=== PATIENT | female | born 1950 | race Caucasian/White ===

== ENCOUNTER → 2019-11-18 | Outpatient (CLI) | payer MEDICARE ==
[~2019-11-18] MED LIST: AMLO5TAB9 PO; DULO60CA44 PO; FENT100PAT TD; FLUT16H NASAL; GABA600T10 PO; HYDR4TAB56 PO; IBUP-2077 PO; LEVO75TA10 PO; MAGN400T40 PO; METO100T14 PO; ONDA4TAB4 PO; RANI150T7 PO; VALS1TAB81 PO
== END | disposition home or self-care (01) ==
LOC: SHCH 10:17
PROVIDERS: ATTEND Internal Medicine Cardiovascular Disease
DX: I87.2 Venous insufficiency (chronic) (peripheral) (principal)
CPT/HCPCS: 93970

== ENCOUNTER → 2020-01-29 | Outpatient (CLI) | payer MEDICARE ==
[~2020-01-29] MED LIST changes: +LIDOCAINE HCL 2% JELLY 5 ML TP ONE
== END | disposition home or self-care (01) ==
LOC: WHH 10:45
PROVIDERS: ATTEND Family Medicine
DX: I87.331 Chronic venous hypertension (idiopathic) with ulcer and inflammation of right lower extremity (principal); L97.212 Non-pressure chronic ulcer of right calf with fat layer exposed; L97.812 Non-pressure chronic ulcer of other part of right lower leg with fat layer exposed; I12.9 Hypertensive chronic kidney disease with stage 1 through stage 4 chronic kidney disease, or unspecified chronic kidney disease; N18.9 Chronic kidney disease, unspecified; I25.10 Atherosclerotic heart disease of native coronary artery without angina pectoris; E03.9 Hypothyroidism, unspecified; I89.0 Lymphedema, not elsewhere classified; E66.9 Obesity, unspecified; M19.90 Unspecified osteoarthritis, unspecified site; F17.200 Nicotine dependence, unspecified, uncomplicated; Z96.642 Presence of left artificial hip joint
CPT/HCPCS: 11042; A6021; A6196; A6456

== ENCOUNTER → 2020-02-05 | Outpatient (CLI) | payer MEDICARE ==
[~2020-02-05] MED LIST changes: +AMLO-257 PO; -AMLO5TAB9 PO
== END | disposition home or self-care (01) ==
LOC: WHH 08:00
PROVIDERS: ATTEND Family Medicine
DX: I87.331 Chronic venous hypertension (idiopathic) with ulcer and inflammation of right lower extremity (principal); L97.212 Non-pressure chronic ulcer of right calf with fat layer exposed; L97.812 Non-pressure chronic ulcer of other part of right lower leg with fat layer exposed; I12.9 Hypertensive chronic kidney disease with stage 1 through stage 4 chronic kidney disease, or unspecified chronic kidney disease; N18.9 Chronic kidney disease, unspecified; I25.10 Atherosclerotic heart disease of native coronary artery without angina pectoris; E03.9 Hypothyroidism, unspecified; I89.0 Lymphedema, not elsewhere classified; E66.9 Obesity, unspecified; M19.90 Unspecified osteoarthritis, unspecified site; F17.290 Nicotine dependence, other tobacco product, uncomplicated; Z96.642 Presence of left artificial hip joint
CPT/HCPCS: 11042; A6021; A6197; A6456

== ENCOUNTER → 2020-02-12 | Outpatient (CLI) | payer MEDICARE | END | disposition home or self-care (01) | LOC: WHH 09:30 | PROVIDERS: ATTEND Family Medicine | DX: I87.331 Chronic venous hypertension (idiopathic) with ulcer and inflammation of right lower extremity (principal); L97.212 Non-pressure chronic ulcer of right calf with fat layer exposed; L97.812 Non-pressure chronic ulcer of other part of right lower leg with fat layer exposed; I12.9 Hypertensive chronic kidney disease with stage 1 through stage 4 chronic kidney disease, or unspecified chronic kidney disease; N18.9 Chronic kidney disease, unspecified; I25.10 Atherosclerotic heart disease of native coronary artery without angina pectoris; E03.9 Hypothyroidism, unspecified; I89.0 Lymphedema, not elsewhere classified; E66.9 Obesity, unspecified; M19.90 Unspecified osteoarthritis, unspecified site; F17.290 Nicotine dependence, other tobacco product, uncomplicated; Z96.642 Presence of left artificial hip joint | CPT/HCPCS: 11042; A6021; A6196; A6456 ==

== ENCOUNTER → 2020-02-19 | Outpatient (CLI) | payer MEDICARE | END | disposition home or self-care (01) | LOC: WHH 09:30 | PROVIDERS: ATTEND Family Medicine | DX: I87.331 Chronic venous hypertension (idiopathic) with ulcer and inflammation of right lower extremity (principal); L97.212 Non-pressure chronic ulcer of right calf with fat layer exposed; L97.812 Non-pressure chronic ulcer of other part of right lower leg with fat layer exposed; I12.9 Hypertensive chronic kidney disease with stage 1 through stage 4 chronic kidney disease, or unspecified chronic kidney disease; N18.9 Chronic kidney disease, unspecified; I25.10 Atherosclerotic heart disease of native coronary artery without angina pectoris; E03.9 Hypothyroidism, unspecified; I89.0 Lymphedema, not elsewhere classified; E66.9 Obesity, unspecified; M19.90 Unspecified osteoarthritis, unspecified site; F17.290 Nicotine dependence, other tobacco product, uncomplicated; Z96.642 Presence of left artificial hip joint | CPT/HCPCS: 11042; A6021; A6196; A6456 ==

== ENCOUNTER → 2020-02-26 | Outpatient (CLI) | payer MEDICARE | END | disposition home or self-care (01) | LOC: WHH 09:30 | PROVIDERS: ATTEND Family Medicine | DX: I87.331 Chronic venous hypertension (idiopathic) with ulcer and inflammation of right lower extremity (principal); L97.212 Non-pressure chronic ulcer of right calf with fat layer exposed; L97.812 Non-pressure chronic ulcer of other part of right lower leg with fat layer exposed; I12.9 Hypertensive chronic kidney disease with stage 1 through stage 4 chronic kidney disease, or unspecified chronic kidney disease; N18.9 Chronic kidney disease, unspecified; I25.10 Atherosclerotic heart disease of native coronary artery without angina pectoris; E03.9 Hypothyroidism, unspecified; I89.0 Lymphedema, not elsewhere classified; E66.9 Obesity, unspecified; M19.90 Unspecified osteoarthritis, unspecified site; F17.290 Nicotine dependence, other tobacco product, uncomplicated; Z96.642 Presence of left artificial hip joint | CPT/HCPCS: 11042; A6021; A6197; A6456 ==

== ENCOUNTER → 2020-03-11 | Outpatient (CLI) | payer MEDICARE | END | disposition home or self-care (01) | LOC: WHH 09:30 | PROVIDERS: ATTEND Family Medicine | DX: I87.331 Chronic venous hypertension (idiopathic) with ulcer and inflammation of right lower extremity (principal); L97.212 Non-pressure chronic ulcer of right calf with fat layer exposed; L97.812 Non-pressure chronic ulcer of other part of right lower leg with fat layer exposed; I12.9 Hypertensive chronic kidney disease with stage 1 through stage 4 chronic kidney disease, or unspecified chronic kidney disease; N18.9 Chronic kidney disease, unspecified; I25.10 Atherosclerotic heart disease of native coronary artery without angina pectoris; E03.9 Hypothyroidism, unspecified; I89.0 Lymphedema, not elsewhere classified; E66.9 Obesity, unspecified; M19.90 Unspecified osteoarthritis, unspecified site; F17.290 Nicotine dependence, other tobacco product, uncomplicated; Z96.642 Presence of left artificial hip joint | CPT/HCPCS: 11042; A6022; A6196; A6456; 29580 ==

== ENCOUNTER → 2020-04-01 | Outpatient (CLI) | payer MEDICARE | END | disposition home or self-care (01) | LOC: WHH 09:30 | PROVIDERS: ATTEND Family Medicine | DX: I87.331 Chronic venous hypertension (idiopathic) with ulcer and inflammation of right lower extremity (principal); L97.212 Non-pressure chronic ulcer of right calf with fat layer exposed; L97.812 Non-pressure chronic ulcer of other part of right lower leg with fat layer exposed; I12.9 Hypertensive chronic kidney disease with stage 1 through stage 4 chronic kidney disease, or unspecified chronic kidney disease; N18.9 Chronic kidney disease, unspecified; I25.10 Atherosclerotic heart disease of native coronary artery without angina pectoris; E03.9 Hypothyroidism, unspecified; I89.0 Lymphedema, not elsewhere classified; E66.9 Obesity, unspecified; M19.90 Unspecified osteoarthritis, unspecified site; F17.290 Nicotine dependence, other tobacco product, uncomplicated; Z96.642 Presence of left artificial hip joint | CPT/HCPCS: 11042; A6022; A6196; A6456 ==

== ENCOUNTER → 2020-04-05 | Outpatient (CLI) | payer MEDICARE | END | disposition home or self-care (01) | LOC: WHH 10:45 | PROVIDERS: ATTEND Family Medicine | DX: I87.331 Chronic venous hypertension (idiopathic) with ulcer and inflammation of right lower extremity (principal); L97.212 Non-pressure chronic ulcer of right calf with fat layer exposed; L97.812 Non-pressure chronic ulcer of other part of right lower leg with fat layer exposed; I12.9 Hypertensive chronic kidney disease with stage 1 through stage 4 chronic kidney disease, or unspecified chronic kidney disease; N18.9 Chronic kidney disease, unspecified; I25.10 Atherosclerotic heart disease of native coronary artery without angina pectoris; E03.9 Hypothyroidism, unspecified; I89.0 Lymphedema, not elsewhere classified; E66.9 Obesity, unspecified; M19.90 Unspecified osteoarthritis, unspecified site; F17.290 Nicotine dependence, other tobacco product, uncomplicated; Z96.642 Presence of left artificial hip joint | CPT/HCPCS: 15271; A6196; A6456; Q4133 ==

== ENCOUNTER → 2020-04-12 | Outpatient (CLI) | payer MEDICARE | END | disposition home or self-care (01) | LOC: WHH 10:30 | PROVIDERS: ATTEND Family Medicine | DX: T86.828 Other complications of skin graft (allograft) (autograft) (principal); L97.212 Non-pressure chronic ulcer of right calf with fat layer exposed; L97.812 Non-pressure chronic ulcer of other part of right lower leg with fat layer exposed; L84 Corns and callosities; I12.9 Hypertensive chronic kidney disease with stage 1 through stage 4 chronic kidney disease, or unspecified chronic kidney disease; N18.9 Chronic kidney disease, unspecified; I25.10 Atherosclerotic heart disease of native coronary artery without angina pectoris; E03.9 Hypothyroidism, unspecified; I89.0 Lymphedema, not elsewhere classified; E66.9 Obesity, unspecified; M19.90 Unspecified osteoarthritis, unspecified site; F17.290 Nicotine dependence, other tobacco product, uncomplicated; Z96.642 Presence of left artificial hip joint; Y83.2 Surgical operation with anastomosis, bypass or graft as the cause of abnormal reaction of the patient, or of later complication, without mention of misadventure at the time of the procedure | CPT/HCPCS: 15271; A6196; A6456; Q4133 ==

== ENCOUNTER → 2020-04-19 | Outpatient (CLI) | payer MEDICARE | END | disposition home or self-care (01) | LOC: WHH 10:55 | PROVIDERS: ATTEND Family Medicine | DX: L97.218 Non-pressure chronic ulcer of right calf with other specified severity (principal); L97.812 Non-pressure chronic ulcer of other part of right lower leg with fat layer exposed; L84 Corns and callosities; I12.9 Hypertensive chronic kidney disease with stage 1 through stage 4 chronic kidney disease, or unspecified chronic kidney disease; N18.9 Chronic kidney disease, unspecified; I25.10 Atherosclerotic heart disease of native coronary artery without angina pectoris; E03.9 Hypothyroidism, unspecified; I89.0 Lymphedema, not elsewhere classified; E66.9 Obesity, unspecified; M19.90 Unspecified osteoarthritis, unspecified site; F17.290 Nicotine dependence, other tobacco product, uncomplicated; Z96.642 Presence of left artificial hip joint | CPT/HCPCS: G0463 ==

== ENCOUNTER → 2020-07-12 | Outpatient (CLI) | payer MEDICARE ==
[~2020-07-12] MED LIST changes: -LIDOCAINE HCL 2% JELLY 5 ML TP ONE
== END | disposition home or self-care (01) ==
LOC: SHCH 14:38
PROVIDERS: ATTEND Internal Medicine Cardiovascular Disease
DX: I10 Essential (primary) hypertension (principal)
CPT/HCPCS: 93306; 93356

== ENCOUNTER → 2020-07-28 | Outpatient (CLI) | payer MEDICARE ==
[~2020-07-28] MED LIST changes: +LIDOCAINE HCL 2% JELLY 5 ML TP ONE
== END | disposition home or self-care (01) ==
LOC: WHH 09:55
PROVIDERS: ATTEND Family Medicine
DX: I87.311 Chronic venous hypertension (idiopathic) with ulcer of right lower extremity (principal); L97.212 Non-pressure chronic ulcer of right calf with fat layer exposed; L97.811 Non-pressure chronic ulcer of other part of right lower leg limited to breakdown of skin; I12.9 Hypertensive chronic kidney disease with stage 1 through stage 4 chronic kidney disease, or unspecified chronic kidney disease; N18.9 Chronic kidney disease, unspecified; E03.9 Hypothyroidism, unspecified; E66.9 Obesity, unspecified; M79.7 Fibromyalgia; M19.90 Unspecified osteoarthritis, unspecified site; I25.10 Atherosclerotic heart disease of native coronary artery without angina pectoris; B35.9 Dermatophytosis, unspecified; F17.210 Nicotine dependence, cigarettes, uncomplicated; Z68.26 Body mass index [BMI] 26.0-26.9, adult; Z96.642 Presence of left artificial hip joint
CPT/HCPCS: 11042; A6021; A6197; A6456; L3260

== ENCOUNTER → 2020-08-11 | Outpatient (CLI) | payer MEDICARE | END | disposition home or self-care (01) | LOC: WHH 11:00 | PROVIDERS: ATTEND Family Medicine | DX: I87.311 Chronic venous hypertension (idiopathic) with ulcer of right lower extremity (principal); L97.212 Non-pressure chronic ulcer of right calf with fat layer exposed; L97.811 Non-pressure chronic ulcer of other part of right lower leg limited to breakdown of skin; I12.9 Hypertensive chronic kidney disease with stage 1 through stage 4 chronic kidney disease, or unspecified chronic kidney disease; N18.9 Chronic kidney disease, unspecified; E03.9 Hypothyroidism, unspecified; E66.9 Obesity, unspecified; M79.7 Fibromyalgia; M19.90 Unspecified osteoarthritis, unspecified site; I25.10 Atherosclerotic heart disease of native coronary artery without angina pectoris; B35.9 Dermatophytosis, unspecified; F17.210 Nicotine dependence, cigarettes, uncomplicated; Z68.26 Body mass index [BMI] 26.0-26.9, adult; Z96.642 Presence of left artificial hip joint | CPT/HCPCS: 11042; A6021; A6197; A6456 ==

== ENCOUNTER → 2020-08-18 | Outpatient (CLI) | payer MEDICARE | END | disposition home or self-care (01) | LOC: WHH 10:55 | PROVIDERS: ATTEND Family Medicine | DX: I87.311 Chronic venous hypertension (idiopathic) with ulcer of right lower extremity (principal); L97.212 Non-pressure chronic ulcer of right calf with fat layer exposed; I12.9 Hypertensive chronic kidney disease with stage 1 through stage 4 chronic kidney disease, or unspecified chronic kidney disease; N18.9 Chronic kidney disease, unspecified; E03.9 Hypothyroidism, unspecified; E66.9 Obesity, unspecified; M79.7 Fibromyalgia; M19.90 Unspecified osteoarthritis, unspecified site; I25.10 Atherosclerotic heart disease of native coronary artery without angina pectoris; B35.9 Dermatophytosis, unspecified; F17.210 Nicotine dependence, cigarettes, uncomplicated; Z68.26 Body mass index [BMI] 26.0-26.9, adult; Z96.642 Presence of left artificial hip joint | CPT/HCPCS: 11042; A6021; A6197; A6456 ==

== ENCOUNTER → 2020-08-25 | Outpatient (CLI) | payer MEDICARE | END | disposition home or self-care (01) | LOC: WHH 11:10 | PROVIDERS: ATTEND Family Medicine | DX: I87.311 Chronic venous hypertension (idiopathic) with ulcer of right lower extremity (principal); L97.212 Non-pressure chronic ulcer of right calf with fat layer exposed; I12.9 Hypertensive chronic kidney disease with stage 1 through stage 4 chronic kidney disease, or unspecified chronic kidney disease; N18.9 Chronic kidney disease, unspecified; E03.9 Hypothyroidism, unspecified; E66.9 Obesity, unspecified; M79.7 Fibromyalgia; M19.90 Unspecified osteoarthritis, unspecified site; I25.10 Atherosclerotic heart disease of native coronary artery without angina pectoris; B59 Pneumocystosis; B35.9 Dermatophytosis, unspecified; F17.210 Nicotine dependence, cigarettes, uncomplicated; Z68.26 Body mass index [BMI] 26.0-26.9, adult; Z96.642 Presence of left artificial hip joint | CPT/HCPCS: 11042; A6021; A6197; A6456 ==

== ENCOUNTER → 2020-09-01 | Outpatient (CLI) | payer MEDICARE | END | disposition home or self-care (01) | LOC: WHH 11:01 | PROVIDERS: ATTEND Family Medicine | DX: I87.311 Chronic venous hypertension (idiopathic) with ulcer of right lower extremity (principal); L97.212 Non-pressure chronic ulcer of right calf with fat layer exposed; I12.9 Hypertensive chronic kidney disease with stage 1 through stage 4 chronic kidney disease, or unspecified chronic kidney disease; N18.9 Chronic kidney disease, unspecified; E03.9 Hypothyroidism, unspecified; E66.9 Obesity, unspecified; M79.7 Fibromyalgia; M19.90 Unspecified osteoarthritis, unspecified site; I25.10 Atherosclerotic heart disease of native coronary artery without angina pectoris; B59 Pneumocystosis; B35.9 Dermatophytosis, unspecified; F17.210 Nicotine dependence, cigarettes, uncomplicated; Z68.26 Body mass index [BMI] 26.0-26.9, adult; Z96.642 Presence of left artificial hip joint | CPT/HCPCS: 11042; A6021; A6197; A6456 ==

== ENCOUNTER → 2020-09-08 | Outpatient (CLI) | payer MEDICARE ==
[~2020-09-08] MED LIST changes: -LIDOCAINE HCL 2% JELLY 5 ML TP ONE; +LIDOCAINE HCL 4% LTA SOL 4 ML VIAL TP ONE
== END | disposition home or self-care (01) ==
LOC: WHH 11:17
PROVIDERS: ATTEND Family Medicine
DX: I87.311 Chronic venous hypertension (idiopathic) with ulcer of right lower extremity (principal); L97.212 Non-pressure chronic ulcer of right calf with fat layer exposed; I12.9 Hypertensive chronic kidney disease with stage 1 through stage 4 chronic kidney disease, or unspecified chronic kidney disease; N18.9 Chronic kidney disease, unspecified; E03.9 Hypothyroidism, unspecified; E66.9 Obesity, unspecified; M79.7 Fibromyalgia; M19.90 Unspecified osteoarthritis, unspecified site; I25.10 Atherosclerotic heart disease of native coronary artery without angina pectoris; B59 Pneumocystosis; B35.9 Dermatophytosis, unspecified; F17.210 Nicotine dependence, cigarettes, uncomplicated; Z68.26 Body mass index [BMI] 26.0-26.9, adult; Z96.642 Presence of left artificial hip joint
CPT/HCPCS: 11042; A4450; A6021; A6197; A6456

== ENCOUNTER → 2020-09-29 | Outpatient (CLI) | payer MEDICARE ==
[~2020-09-29] MED LIST changes: -LIDOCAINE HCL 4% LTA SOL 4 ML VIAL TP ONE
== END | disposition home or self-care (01) ==
LOC: WHH 10:55
PROVIDERS: ATTEND Family Medicine
DX: I87.311 Chronic venous hypertension (idiopathic) with ulcer of right lower extremity (principal); L97.212 Non-pressure chronic ulcer of right calf with fat layer exposed; I12.9 Hypertensive chronic kidney disease with stage 1 through stage 4 chronic kidney disease, or unspecified chronic kidney disease; N18.9 Chronic kidney disease, unspecified; E03.9 Hypothyroidism, unspecified; E66.9 Obesity, unspecified; M79.7 Fibromyalgia; M19.90 Unspecified osteoarthritis, unspecified site; I25.10 Atherosclerotic heart disease of native coronary artery without angina pectoris; B59 Pneumocystosis; B35.9 Dermatophytosis, unspecified; F17.210 Nicotine dependence, cigarettes, uncomplicated; Z68.26 Body mass index [BMI] 26.0-26.9, adult; Z96.642 Presence of left artificial hip joint
CPT/HCPCS: 29580; A6456; G0463

== ENCOUNTER 2021-08-04 12:58 | Emergency (ER) | payer MEDICARE ==
[~2021-08-04] VITALS: Ht 162.6 cm; Wt 65.8 kg
[~2021-08-04 12:58] MED LIST changes: -DULO60CA44 PO; +DULO60CA45 PO
[2021-08-04 13:54] LABS: BASOPHILS % (AUTO) 0.3 % (0.0-5.0); EOSINOPHILS % (AUTO) 0.6 % (0.0-8.0); HEMATOCRIT 39.8 % (36-48); LYMPHOCYTES % (AUTO) 8.1 % (21.0-51.0); MEAN CORPUSCULAR HEMOGLOBIN 28.1 pg (27.0-33.0); MEAN CORPUSCULAR HGB CONC 32.2 g/dL (32.0-36.0); MEAN CORPUSCULAR VOLUME 87.5 fL (79-99); MONOCYTES % (AUTO) 5.2 % (3.0-13.0); PLATELET COUNT (AUTO) 385 K/uL (130-400); RED BLOOD CELL COUNT(AUTO) 4.55 MIL/uL (4.00-5.50); RED CELL DISTRIBUTION WIDTH 14.5 % (11.0-15.5); WHITE BLOOD COUNT (AUTO) 28.5 K/uL (4.8-10.8)
[2021-08-04 14:02] LABS: CREATININE 1.1 mg/dL (0.5-1.5); POTASSIUM 3.5 mmol/L (3.5-5.1)
[2021-08-04 14:07] LABS: BILIRUBIN,TOTAL 0.5 mg/dL (0.2-1.0); CRP QUANTITATIVE 84.3 mg/L (0.00-9.0); TOTAL PROTEIN, SERUM 6.8 g/dL (6.0-8.3)
[2021-08-04 14:25] LABS: B-TYPE NATRIURETIC PEPTIDE 30 pg/mL (0-100)
[2021-08-04] MEDS: ZOSYN 3.375GM +NS 50ML IV SCH ×2 (14:30→22:33)
[2021-08-04] MEDS: CLINDAMYCIN IVPB 600MG/50ML 50 ML IV SCH ×3 (15:01→23:33)
[2021-08-04] MEDS ORDERED: IOHEXOL-350 75 ML VIAL IV ONE (15:23)
[2021-08-04] MEDS ORDERED: IOHEXOL-350 50ML VIAL IV ONE (15:23)
[2021-08-04] MEDS ORDERED: ONDANSETRON 4MG INJ IVP ONE ×2 (15:30→21:00)
[2021-08-04] MEDS ORDERED: MORPHINE 2 MG SYG IVP ONE (15:30)
[2021-08-04] MEDS ORDERED: 0.9%NACL 50ML 50 ML IV ONE ×2 (16:18→22:29)
[2021-08-04 16:31] LABS: APPEARANCE,URINE Clear (CLEAR); BILIRUBIN,URINE Negative (NEGATIVE); COLOR,URINE Yellow (YELLOW); GLUCOSE, URINE (UA) Negative (NEGATIVE); KETONES,URINE Negative (NEGATIVE); LEUKOCYTE ESTERASE ,URINE Negative (NEGATIVE); NITRATE,URINE Negative (NEGATIVE); OCCULT BLOOD,URINE Negative (NEGATIVE); PROTEIN,URINE Negative (NEGATIVE); UROBILINOGEN,URINE 0.2 mg/dL (0.2-1.0)
[2021-08-04] MEDS ORDERED: HYDR1VIA2 PO (18:13)
[2021-08-04] MEDS ORDERED: TIZA-194 PO (18:14)
[2021-08-04] MEDS ORDERED: LEVO25CA4 PO (18:15)
[2021-08-04] MEDS ORDERED: FURO20TA4 PO (18:17)
[2021-08-04] MEDS ORDERED: METO100T14 PO (18:17)
[2021-08-04] MEDS ORDERED: SERT200C PO (18:18)
[2021-08-04] MEDS ORDERED: AMLO-257 PO (18:19)
[2021-08-04] MEDS ORDERED: GABA600T10 PO (18:20)
[2021-08-04] MEDS ORDERED: ARIP5TAB56 PO (18:20)
[2021-08-04] MEDS ORDERED: BENZ-70 PO (18:21)
[2021-08-04] MEDS ORDERED: VALS320T16 PO (18:22)
[2021-08-04 23:15] VITALS: BP 86/59
[2021-08-04] MEDS ORDERED: FAMOTIDINE 20MG VIAL IV ONE (23:30)
[2021-08-04] MEDS ORDERED: LIDOCAINE HCL 2% VISCOUS 15 ML UDCUP PO ONE (23:30)
[2021-08-04] MEDS ORDERED: DICYCLOMINE HCL 10 MG/5 ML ML PO ONE (23:30)
[2021-08-04] MEDS ORDERED: MAG/ALUM/SIMETH 30 ML UDCUP PO ONE (23:30)
== END 2021-08-04 23:47 | disposition short-term general hospital (02) ==
LOC: EDH 12:58
DX: L02.416 Cutaneous abscess of left lower limb (principal); L03.116 Cellulitis of left lower limb; T84.021A Dislocation of internal left hip prosthesis, initial encounter; Z20.822 Contact with and (suspected) exposure to COVID-19; F32.A Depression, unspecified; F17.200 Nicotine dependence, unspecified, uncomplicated; M79.7 Fibromyalgia; I10 Essential (primary) hypertension; E03.9 Hypothyroidism, unspecified; G89.29 Other chronic pain; Z88.0 Allergy status to penicillin; Z88.8 Allergy status to other drugs, medicaments and biological substances; Z88.1 Allergy status to other antibiotic agents; Z79.899 Other long term (current) drug therapy; Z98.890 Other specified postprocedural states; Z90.49 Acquired absence of other specified parts of digestive tract
CPT/HCPCS: 36415; 51702; 71045; 73502; 75635; 80053; 81003; 83605; 83880; 84484; 85025; 85651; 86140; 87040 ×2; 87635; 93926; 93971; 96365; 96366; 96368; 96375; 96376; 99285; C9803; J2405 ×2; J2543 ×2; J3490 ×3; Q9967 ×2

== ENCOUNTER 2021-08-30 01:33 | Observation (INO) | payer MEDICARE ==
[~2021-08-30] VITALS: Ht 162.6 cm; Wt 79.1 kg
[~2021-08-30 01:33] MED LIST changes: +ARIP5TAB56 PO; +BENZ-70 PO; +FURO20TA4 PO; +HYDR1VIA2 PO; +LEVO25CA4 PO; +SERT200C PO; +TIZA-194 PO; +VALS320T16 PO
[2021-08-30 03:18] LABS: BASOPHILS % (AUTO) 0.8 % (0.0-5.0); HEMATOCRIT 30.5 % (36-48); LYMPHOCYTES % (AUTO) 17.9 % (21.0-51.0); MEAN CORPUSCULAR HEMOGLOBIN 27.8 pg (27.0-33.0); MEAN CORPUSCULAR HGB CONC 30.8 g/dL (32.0-36.0); MEAN CORPUSCULAR VOLUME 90.2 fL (79-99); MONOCYTES % (AUTO) 10.8 % (3.0-13.0); NEUTROPHILS % (AUTO) 66.9 % (40.0-77.0); PLATELET COUNT (AUTO) 397 K/uL (130-400); RED BLOOD CELL COUNT(AUTO) 3.38 MIL/uL (4.00-5.50); RED CELL DISTRIBUTION WIDTH 14.6 % (11.0-15.5); WHITE BLOOD COUNT (AUTO) 10.2 K/uL (4.8-10.8)
[2021-08-30 03:36] LABS: B-TYPE NATRIURETIC PEPTIDE 381 pg/mL (0-100)
[2021-08-30 04:16] LABS: APPEARANCE,URINE Clear (CLEAR); BILIRUBIN,URINE Negative (NEGATIVE); COLOR,URINE Yellow (YELLOW); GLUCOSE, URINE (UA) Negative (NEGATIVE); KETONES,URINE Negative (NEGATIVE); LEUKOCYTE ESTERASE ,URINE Negative (NEGATIVE); NITRATE,URINE Negative (NEGATIVE); OCCULT BLOOD,URINE Small (NEGATIVE); PH,URINE 6.5 (5.0-8.0); PROTEIN,URINE POS 1+ mg/dL (NEGATIVE); UROBILINOGEN,URINE 0.2 mg/dL (0.2-1.0)
[2021-08-30 04:27] LABS: BACTERIA,URINE Few /HPF (None Seen); RBC,URINE 0-1 /HPF (0-1)
[2021-08-30 04:28] LABS: MUCUS,URINE Rare LPF (None Seen)
[2021-08-30 04:40] LABS: ALBUMIN 2.4 g/dL (3.5-5.0); BILIRUBIN,TOTAL 0.3 mg/dL (0.2-1.0); CREATININE 1.1 mg/dL (0.5-1.5); POTASSIUM 4.3 mmol/L (3.5-5.1); TOTAL PROTEIN, SERUM 6.3 g/dL (6.0-8.3)
[2021-08-30] MEDS ORDERED: GUAIFENESIN-DM 200/20 MG 10 ML PO PRN (06:00)
[2021-08-30] MEDS ORDERED: NITROGLYCERIN 0.4 MG SL TAB SL PRN (06:00)
[2021-08-30] MEDS ORDERED: LACTULOSE 20 GM/30 ML UDCUP PO PRN (06:00)
[2021-08-30] MEDS ORDERED: ACETAMINOPHEN 325 MG TAB PO PRN (06:00)
[2021-08-30] MEDS ORDERED: MAG/ALUM/SIMETH 30 ML UDCUP PO PRN (06:00)
[2021-08-30] MEDS ORDERED: ONDANSETRON 4MG INJ IV PRN (06:00)
[2021-08-30] MEDS ORDERED: DIPHENHYDRAMINE HCL 25 MG CAPSULE PO PRN (06:00)
[2021-08-30] MEDS ORDERED: ALBUTEROL INHALER PUFF (06:17)
[2021-08-30] MEDS ORDERED: BUPR-74 PO (06:19)
[2021-08-30] MEDS ORDERED: CEFEPIME (06:20)
[2021-08-30] MEDS ORDERED: DAPT500V17 IV (06:21)
[2021-08-30] MEDS ORDERED: DOXY-336 PO (06:22)
[2021-08-30] MEDS ORDERED: DSS PO (06:23)
[2021-08-30] MEDS ORDERED: LEVO750T46 PO (06:29)
[2021-08-30] MEDS ORDERED: MULT-1192 PO (06:33)
[2021-08-30] MEDS ORDERED: NALO4SPR3 NS (06:38)
[2021-08-30] MEDS ORDERED: SENN8.6T32 PO (06:40)
[2021-08-30] MEDS ORDERED: THYR120T2 PO (06:42)
[2021-08-30] MEDS ORDERED: TIZA-194 PO (06:43)
[2021-08-30] MEDS: ENOXAPARIN SODIUM 40 MG/0.4 ML SYRINGE SQ SCH (09:34)
[2021-08-30] MEDS: FAMOTIDINE 20MG VIAL IV SCH ×2 (09:34→21:22)
[2021-08-30 12:00] VITALS: BP 131/78
[2021-08-30 16:00] VITALS: BP 137/69
[2021-08-30 19:00] VITALS: BP 132/80
[2021-08-30] MEDS ORDERED: NALOXONE HCL 4 MG NASAL PRN (19:00)
[2021-08-30] MEDS ORDERED: ONDANSETRON ODT 4MG TAB PO PRN (19:00)
[2021-08-30] MEDS ORDERED: CEFE1FRO IV (19:06)
[2021-08-30] MEDS ORDERED: SERT-439 PO (19:17)
[2021-08-30] MEDS ORDERED: ONDA4TAB10 PO (19:17)
[2021-08-30] MEDS ORDERED: HYDR4TAB4 PO (19:17)
[2021-08-30] MEDS ORDERED: FENT-77 TD (19:17)
[2021-08-30] MEDS ORDERED: TIZANIDINE HCL 2 MG TABLET PO SCH ×2 (21:00→21:30)
[2021-08-30] MEDS ORDERED: FENTANYL 75 MCG/HR PATCH TD SCH (21:00)
[2021-08-30] MEDS ORDERED: ARIPIPRAZOLE 5 MG TABLET PO SCH (21:00)
[2021-08-30] MEDS ORDERED: ATORVASTATIN 20 MG TABLET PO SCH (21:00)
[2021-08-30] MEDS: GABAPENTIN 300 MG CAPSULE PO SCH (21:21)
[2021-08-30] MEDS: FUROSEMIDE 40MG VIAL IV SCH (21:22)
[2021-08-30] MEDS: METOPROLOL TARTRATE 50 MG TAB PO SCH (21:22)
[2021-08-30] MEDS: HYDROMORPHONE HCL 2 MG TAB PO PRN (21:28)
[2021-08-30] MEDS ORDERED: TIZANIDINE HCL 2 MG TABLET ONE ×3 (21:37→21:38)
[2021-08-31] VITALS: BP 98/56
[2021-08-31 04:00] VITALS: BP 92/56
[2021-08-31] MEDS: FUROSEMIDE 40MG VIAL IV SCH (04:00)
[2021-08-31 05:49] LABS: HEMATOCRIT 27.4 % (36-48); MEAN CORPUSCULAR HEMOGLOBIN 27.8 pg (27.0-33.0); MEAN CORPUSCULAR HGB CONC 31.4 g/dL (32.0-36.0); MEAN CORPUSCULAR VOLUME 88.7 fL (79-99); RED BLOOD CELL COUNT(AUTO) 3.09 MIL/uL (4.00-5.50); RED CELL DISTRIBUTION WIDTH 14.7 % (11.0-15.5); RETICULOCYTE % (AUTO) 1.25 % (0.42-2.23); WHITE BLOOD COUNT (AUTO) 6.6 K/uL (4.8-10.8)
[2021-08-31] MEDS ORDERED: THYROID PORK 120 MG PO SCH (06:30)
[2021-08-31 06:36] LABS: CREATININE 1.3 mg/dL (0.5-1.5); MAGNESIUM 1.4 mg/dL (1.80-2.40); PHOSPHORUS 2.8 mg/dL (2.5-4.9); POTASSIUM 4.9 mmol/L (3.5-5.1)
[2021-08-31 06:56] VITALS: BP 93/55
[2021-08-31] MEDS ORDERED: CEFEPIME IVP SCH ×2 (09:00→19:00)
[2021-08-31] MEDS ORDERED: AMLODIPINE 5 MG TAB PO SCH (09:00)
[2021-08-31] MEDS: METOPROLOL TARTRATE 50 MG TAB PO SCH (09:00)
[2021-08-31] MEDS ORDERED: NS IVP SCH ×4 (09:00→19:00)
[2021-08-31] MEDS ORDERED: DAPTOMYCIN IVP SCH ×2 (09:00→18:00)
[2021-08-31] MEDS ORDERED: MULTIVITAMIN TABLET PO SCH (09:00)
[2021-08-31] MEDS ORDERED: ASPIRIN 81 MG EC TAB PO SCH (09:00)
[2021-08-31] MEDS ORDERED: SERTRALINE HCL 50 MG TABLET PO SCH (09:00)
[2021-08-31] MEDS ORDERED: MAGNESIUM 2GM PREMIX 50ML 50 ML IV SCH (09:30)
[2021-08-31] MEDS: FAMOTIDINE 20MG VIAL IV SCH (09:54)
[2021-08-31] MEDS: ENOXAPARIN SODIUM 40 MG/0.4 ML SYRINGE SQ SCH (09:56)
[2021-08-31] MEDS: GABAPENTIN 300 MG CAPSULE PO SCH ×2 (09:56→17:01)
[2021-08-31] MEDS: HYDROMORPHONE HCL 2 MG TAB PO PRN ×2 (10:16→18:28)
[2021-08-31] MEDS ORDERED: FURO20TA6 PO (12:26)
[2021-08-31 16:00] VITALS: BP 143/77
== END 2021-08-31 20:28 | disposition home or self-care (01) ==
LOC: EDH 01:33 → EDHIP 05:53 → INTOOBSV 05:53 → 3BH 11:33
PROVIDERS: ADMIT Internal Medicine; ATTEND Internal Medicine
DX: I87.2 Venous insufficiency (chronic) (peripheral) (principal); R60.0 Localized edema; I21.4 Non-ST elevation (NSTEMI) myocardial infarction; D64.9 Anemia, unspecified; E03.9 Hypothyroidism, unspecified; R53.81 Other malaise; I10 Essential (primary) hypertension; R32 Unspecified urinary incontinence; L02.416 Cutaneous abscess of left lower limb; M06.9 Rheumatoid arthritis, unspecified; M79.7 Fibromyalgia; Z87.891 Personal history of nicotine dependence; Z91.81 History of falling; Z99.3 Dependence on wheelchair; Z96.643 Presence of artificial hip joint, bilateral; Z90.49 Acquired absence of other specified parts of digestive tract; Z79.899 Other long term (current) drug therapy; Z98.890 Other specified postprocedural states; W01.0XXA Fall on same level from slipping, tripping and stumbling without subsequent striking against object, initial encounter; Y92.89 Other specified places as the place of occurrence of the external cause; Y93.89 Activity, other specified; Y99.8 Other external cause status
CPT/HCPCS: 36415 ×2; 71045; 73522; 78580; 80048; 80053; 81001; 82306; 82550; 82607; 82728; 82746; 83540; 83550; 83605; 83735; 83880 ×2; 84100; 84145 ×2; 84484 ×4; 85025; 85027; 85045; 93005 ×2; 93306; 93970; 96365; 96366; 96372 ×2; 96375; 96376 ×2; 99285; A9540; G0378 ×11; J1650 ×2; J1940; J3475; J3490 ×3

== ENCOUNTER → 2021-11-23 | Outpatient (CLI) | payer MEDICARE ==
[~2021-11-23] MED LIST changes: -BENZ-70 PO; +CEFE1FRO IV; +DAPT500V17 IV; -DULO60CA45 PO; +FENT-77 TD; -FENT100PAT TD; -FLUT16H NASAL; -FURO20TA4 PO; +FURO20TA6 PO; -HYDR1VIA2 PO; +HYDR4TAB4 PO; -HYDR4TAB56 PO; -IBUP-2077 PO; -LEVO25CA4 PO; -LEVO75TA10 PO; -MAGN400T40 PO; +MULT-1192 PO; +NALO4SPR3 NS; +ONDA4TAB10 PO; -ONDA4TAB4 PO; -RANI150T7 PO; +SERT-439 PO; -SERT200C PO; +THYR120T2 PO; -VALS1TAB81 PO; -VALS320T16 PO
== END | disposition home or self-care (01) ==
LOC: WHH 10:00
PROVIDERS: ATTEND Family Medicine
DX: I89.0 Lymphedema, not elsewhere classified (principal); I87.2 Venous insufficiency (chronic) (peripheral); I12.9 Hypertensive chronic kidney disease with stage 1 through stage 4 chronic kidney disease, or unspecified chronic kidney disease; N18.9 Chronic kidney disease, unspecified; M19.90 Unspecified osteoarthritis, unspecified site; I25.10 Atherosclerotic heart disease of native coronary artery without angina pectoris; M79.7 Fibromyalgia; E03.9 Hypothyroidism, unspecified; F17.290 Nicotine dependence, other tobacco product, uncomplicated; Z96.642 Presence of left artificial hip joint; Z79.899 Other long term (current) drug therapy
CPT/HCPCS: G0463

== ENCOUNTER → 2021-12-28 | Outpatient (CLI) | payer MEDICARE | END | disposition home or self-care (01) | LOC: LAB 11:50 | PROVIDERS: ATTEND Physician Assistant | DX: E78.5 Hyperlipidemia, unspecified (principal) | CPT/HCPCS: 36415; 84132 ==

== ENCOUNTER 2022-10-31 07:53 | Emergency (ER) | payer MEDICARE ==
[~2022-10-31] VITALS: Ht 165.1 cm; Wt 65.8 kg
[2022-10-31 09:33] LABS: BASOPHILS % (AUTO) 0.3 % (0.0-5.0); EOSINOPHILS % (AUTO) 0.6 % (0.0-8.0); LYMPHOCYTES % (AUTO) 8.4 % (21.0-51.0); MEAN CORPUSCULAR HEMOGLOBIN 27.3 pg (27.0-33.0); MEAN CORPUSCULAR HGB CONC 31.3 g/dL (32.0-36.0); MEAN CORPUSCULAR VOLUME 87.2 fL (79-99); MONOCYTES % (AUTO) 7.6 % (3.0-13.0); NEUTROPHILS % (AUTO) 82.6 % (40.0-77.0); PLATELET COUNT (AUTO) 290 K/uL (130-400); RED BLOOD CELL COUNT(AUTO) 4.36 MIL/uL (4.00-5.50); RED CELL DISTRIBUTION WIDTH 13.4 % (11.0-15.5); WHITE BLOOD COUNT (AUTO) 12.6 K/uL (4.8-10.8)
[2022-10-31 09:46] LABS: ALBUMIN 3.2 g/dL (3.5-5.0); CREATININE 1.4 mg/dL (0.5-1.5); MAGNESIUM 1.8 mg/dL (1.80-2.40); POTASSIUM 3.8 mmol/L (3.5-5.1); TOTAL PROTEIN, SERUM 7.2 g/dL (6.0-8.3)
[2022-10-31 10:28] LABS: APPEARANCE,URINE CLEAR (CLEAR); BILIRUBIN,URINE NEGATIVE (NEGATIVE); COLOR,URINE COLORLESS (YELLOW); GLUCOSE, URINE (UA) NEGATIVE (NEGATIVE); KETONES,URINE NEGATIVE (NEGATIVE); LEUKOCYTE ESTERASE ,URINE NEGATIVE Leu/uL (NEGATIVE); NITRATE,URINE NEGATIVE (NEGATIVE); OCCULT BLOOD,URINE NEGATIVE (NEGATIVE); PROTEIN,URINE NEGATIVE (NEGATIVE); UROBILINOGEN,URINE 0.2 mg/dL (0.2-1.0)
[2022-10-31 10:31] LABS: AMPHET/METH SCREEN,URINE NEGATIVE (NEGATIVE); BARBITURATE SCREEN, URINE NEGATIVE (NEGATIVE); BENZODIAZEPINES SCREEN,URINE NEGATIVE (NEGATIVE); CANNABINOID SCREEN,URINE NEGATIVE (NEGATIVE); COCAINE SCREEN,URINE NEGATIVE (NEGATIVE); OPIATE SCREEN,URINE NEGATIVE (NEGATIVE); PHENCYCLIDINE SCREEN,URINE NEGATIVE (NEGATIVE)
[2022-10-31 12:38] VITALS: BP 153/76
== END 2022-10-31 12:37 | disposition home or self-care (01) ==
LOC: EDH 07:53
DX: R25.1 Tremor, unspecified (principal); I10 Essential (primary) hypertension; M79.7 Fibromyalgia; F17.200 Nicotine dependence, unspecified, uncomplicated; Z79.890 Hormone replacement therapy; Z79.899 Other long term (current) drug therapy; Z88.0 Allergy status to penicillin; Z88.1 Allergy status to other antibiotic agents
CPT/HCPCS: 36415; 70450; 72125; 72131; 80053; 80305; 81003; 83735; 85025

== ENCOUNTER → 2022-11-07 | Outpatient (CLI) | payer MEDICARE | END | disposition home or self-care (01) | LOC: SHCH 12:55 | PROVIDERS: ATTEND Internal Medicine Cardiovascular Disease | DX: I87.2 Venous insufficiency (chronic) (peripheral) (principal); R59.0 Localized enlarged lymph nodes | CPT/HCPCS: 93970 ==

== ENCOUNTER 2023-08-01 13:56 | Emergency (ER) | payer MEDICARE ==
[~2023-08-01] VITALS: Ht 162.6 cm; Wt 81.6 kg
[~2023-08-01 13:56] MED LIST changes: -ARIP5TAB56 PO; -CEFE1FRO IV; -DAPT500V17 IV; -FENT-77 TD; +FENT1PAT63 TD; -FURO20TA6 PO; +HYDR4 PO; -HYDR4TAB4 PO; -MULT-1192 PO; -NALO4SPR3 NS; -ONDA4TAB10 PO; -SERT-439 PO; -THYR120T2 PO; +THYROID PO; +VALS1TAB81 PO
[2023-08-01] MEDS: HYDROMORPHONE 2 MG VIAL (2MG/ML) IM ONE (16:39)
[2023-08-01] MEDS: ONDANSETRON ODT 4MG TAB SL ONE (16:39)
[2023-08-01 18:55] VITALS: BP 123/78; PULSE 78; RESP 18; O2SAT 98
[2023-08-01] MEDS: HYDROMORPHONE 1 MG INJ IM ONE (19:03)
== END 2023-08-01 18:46 | disposition home or self-care (01) ==
LOC: EDH 13:56
DX: G89.29 Other chronic pain (principal); M25.552 Pain in left hip; I10 Essential (primary) hypertension; M79.7 Fibromyalgia; F17.200 Nicotine dependence, unspecified, uncomplicated; Z79.899 Other long term (current) drug therapy; Z98.890 Other specified postprocedural states; Z88.0 Allergy status to penicillin; Z88.1 Allergy status to other antibiotic agents; Z88.8 Allergy status to other drugs, medicaments and biological substances
CPT/HCPCS: 99284; 72170; 96372 ×2; J1170 ×2

== ENCOUNTER 2023-10-04 15:43 | Inpatient (IN) | payer MEDICARE ==
[~2023-10-04] VITALS: Ht 162.6 cm; Wt 79.8 kg
[2023-10-04] MEDS: ONDANSETRON 4MG INJ IVP ONE (16:29)
[2023-10-04] MEDS: SOLU-MEDROL 125MG VIAL IVP ONE (16:29)
[2023-10-04] MEDS: MORPHINE 4 MG SYG IVP ONE (16:29)
[2023-10-04 18:26] LABS: BASOPHILS # (AUTO) 0.03 K/uL (0.00-0.20); BASOPHILS % (AUTO) 0.2 % (0.0-5.0); IMMATURE GRANULOCYTE ABSOLUTE 0.06 K/uL (0-1); LYMPHOCYTES # (AUTO) 0.4 K/uL (1.0-4.8); LYMPHOCYTES % (AUTO) 3.4 % (21.0-51.0); MEAN CORPUSCULAR HEMOGLOBIN 28.1 pg (27.0-33.0); MEAN CORPUSCULAR HGB CONC 30.7 g/dL (32.0-36.0); MEAN CORPUSCULAR VOLUME 91.6 fL (79-99); MONOCYTES # (AUTO) 0.4 K/uL (0.1-1.0); MONOCYTES % (AUTO) 3.2 % (3.0-13.0); NEUTROPHILS # (AUTO) 11.7 K/uL (1.8-7.7); NEUTROPHILS % (AUTO) 92.7 % (40.0-77.0); PLATELET COUNT (AUTO) 410 K/uL (130-400); RED BLOOD CELL COUNT(AUTO) 1.67 MIL/uL (4.00-5.50); RED CELL DISTRIBUTION WIDTH 16.7 % (11.0-15.5); WHITE BLOOD COUNT (AUTO) 12.6 K/uL (4.8-10.8)
[2023-10-04 18:34] LABS: HEMATOCRIT 15.3 % (36-48)
[2023-10-04 18:35] LABS: CREATININE 1.1 mg/dL (0.5-1.0); POTASSIUM 4.1 mmol/L (3.5-5.1)
[2023-10-04 18:40] LABS: ALBUMIN 2.7 g/dL (3.5-5.0); BILIRUBIN,TOTAL 1.3 mg/dL (0.2-1.0)
[2023-10-04] MEDS ORDERED: ACETAMINOPHEN 325 MG TAB PO PRN (19:00)
[2023-10-04] MEDS: PANTOPRAZOLE 40 MG/VIAL IVP ONE (19:29)
[2023-10-04] MEDS: HYDROMORPHONE 1 MG INJ IV PRN (19:30)
[2023-10-04 19:44] LABS: RETICULOCYTE % (AUTO) 4.57 % (0.42-2.23)
[2023-10-04 19:49] LABS: INR 1.02 (0.85-1.15)
[2023-10-04 19:51] LABS: PARTIAL THROMBOPLASTIN TIME 27.4 SEC (26.3-35.5)
[2023-10-04 19:53] LABS: % IRON SATURATION 11.4 % (22-44)
[2023-10-04 20:11] LABS: BAND NEUTROPHILS % (MANUAL) 2 % (0-2); LYMPHOCYTES % (MANUAL) 4 % (22-44); MAN.DIFF COMMENT-IMPRESSION MANUAL DIFFERENTIAL; MONOCYTES % (MANUAL) 2 % (2-9); PLATELET MORPHOLOGY COMMENT ADEQUATE; SEGMENTED NEUTROPHILS % 92 % (40-70); TOTAL CELLS COUNTED 100; WBC MORPHOLOGY CONSISTENT W/DIFF
[2023-10-04] MEDS: ACETAMINOPHEN 325 MG TAB PO PRN (21:36)
[2023-10-04] MEDS: ONDANSETRON 4MG INJ IV PRN (21:51)
[2023-10-04] MEDS: MORPHINE 2 MG SYG IV PRN (21:52)
[2023-10-04 22:35] VITALS: BP 152/60; PULSE 92; RESP 20
[2023-10-05 04:00] VITALS: BP 157/72; PULSE 79; RESP 18
[2023-10-05 04:46] LABS: BASOPHILS # (AUTO) 0.01 K/uL (0.00-0.20); BASOPHILS % (AUTO) 0.1 % (0.0-5.0); HEMATOCRIT 22.5 % (36-48); IMMATURE GRANULOCYTE ABSOLUTE 0.08 K/uL (0-1); LYMPHOCYTES # (AUTO) 0.7 K/uL (1.0-4.8); LYMPHOCYTES % (AUTO) 8.1 % (21.0-51.0); MEAN CORPUSCULAR HGB CONC 32.4 g/dL (32.0-36.0); MEAN CORPUSCULAR VOLUME 89.3 fL (79-99); MONOCYTES # (AUTO) 0.2 K/uL (0.1-1.0); MONOCYTES % (AUTO) 2.9 % (3.0-13.0); NEUTROPHILS # (AUTO) 7.2 K/uL (1.8-7.7); NEUTROPHILS % (AUTO) 87.9 % (40.0-77.0); PLATELET COUNT (AUTO) 353 K/uL (130-400); RED BLOOD CELL COUNT(AUTO) 2.52 MIL/uL (4.00-5.50); RED CELL DISTRIBUTION WIDTH 14.7 % (11.0-15.5); WHITE BLOOD COUNT (AUTO) 8.1 K/uL (4.8-10.8)
[2023-10-05 05:04] LABS: CREATININE 1.1 mg/dL (0.5-1.0); MAGNESIUM 1.8 mg/dL (1.80-2.40); PHOSPHORUS 3.7 mg/dL (2.5-4.9); POTASSIUM 3.8 mmol/L (3.5-5.1); THYROID STIMULATING HORMONE 0.34 uIU/mL (0.36-3.74)
[2023-10-05] MEDS: ENOXAPARIN SODIUM 40 MG/0.4 ML SYRINGE SQ SCH (07:57)
[2023-10-05] MEDS: FAMOTIDINE 20MG TAB PO SCH (07:57)
[2023-10-05 08:00] VITALS: BP 156/78; PULSE 89; RESP 18; O2SAT 100
[2023-10-05] MEDS: HYDROMORPHONE HCL 2 MG TAB PO ONE (09:15)
[2023-10-05 12:00] VITALS: BP 164/77; PULSE 80; RESP 18
[2023-10-05 13:11] LABS: HEMATOCRIT 23.4 % (36-48)
[2023-10-05] MEDS ORDERED: NON-FORMULARY MEDICATION 1 EACH (Hydromorphone HCl (Dilaudid) 4 MG) PO PRN (15:00)
[2023-10-05] MEDS: FENTANYL 100 MCG/HR PATCH TD PRN (15:23)
[2023-10-05] MEDS: IRON SUCROSE COMPLEX 300 MG in 0.9% NACL 250ML 250 ML IV SCH (15:41)
[2023-10-05 16:00] VITALS: BP 158/68; PULSE 82; RESP 18
[2023-10-05] MEDS: HYDROMORPHONE 2 MG VIAL (2MG/ML) IVP PRN (16:25)
[2023-10-05] MEDS ORDERED: HYDROMORPHONE 0.5 MG SYG (0.5MG/0.5ML) IV PRN (16:30)
[2023-10-05 17:53] LABS: HEMATOCRIT 22.9 % (36-48)
[2023-10-05] MEDS: MAGNESIUM 2GM PREMIX 50ML 50 ML IV PRN (19:17)
[2023-10-05 20:00] VITALS: BP 153/78; PULSE 85; RESP 20; O2SAT 100
[2023-10-05] MEDS: TIZANIDINE HCL 2 MG TABLET PO SCH (20:23)
[2023-10-05] MEDS: METOPROLOL TARTRATE 50 MG TAB PO SCH (20:24)
[2023-10-05] MEDS: AMLODIPINE 5 MG TAB PO SCH (20:24)
[2023-10-05] MEDS: GABAPENTIN 300 MG CAPSULE PO SCH (20:24)
[2023-10-05] MEDS: HYDROMORPHONE HCL 2 MG TAB PO PRN (20:25)
[2023-10-05] MEDS ORDERED: FAMOTIDINE 20MG TAB PO SCH (21:00)
[2023-10-06] VITALS: BP 136/67; PULSE 64; RESP 20
[2023-10-06 00:49] LABS: HEMATOCRIT 22.4 % (36-48)
[2023-10-06 04:00] VITALS: BP 149/81; PULSE 69; RESP 20
[2023-10-06] MEDS: [UNRECOGNIZED DRUG - OTHER] PO SCH (07:30)
[2023-10-06 08:00] VITALS: BP 169/81; PULSE 84; RESP 17; O2SAT 97
[2023-10-06] MEDS: PANTOPRAZOLE 40 MG/VIAL IVP SCH (08:49)
[2023-10-06 11:30] LABS: BASOPHILS # (AUTO) 0.03 K/uL (0.00-0.20); BASOPHILS % (AUTO) 0.3 % (0.0-5.0); EOSINOPHILS # (AUTO) 0.06 K/uL (0.00-0.70); EOSINOPHILS % (AUTO) 0.6 % (0.0-8.0); HEMATOCRIT 23.5 % (36-48); IMMATURE GRANULOCYTE ABSOLUTE 0.05 K/uL (0-1); LYMPHOCYTES # (AUTO) 1.6 K/uL (1.0-4.8); LYMPHOCYTES % (AUTO) 15.8 % (21.0-51.0); MEAN CORPUSCULAR HEMOGLOBIN 29.5 pg (27.0-33.0); MEAN CORPUSCULAR HGB CONC 32.8 g/dL (32.0-36.0); MONOCYTES # (AUTO) 0.6 K/uL (0.1-1.0); MONOCYTES % (AUTO) 5.6 % (3.0-13.0); NEUTROPHILS # (AUTO) 7.7 K/uL (1.8-7.7); NEUTROPHILS % (AUTO) 77.2 % (40.0-77.0); PLATELET COUNT (AUTO) 420 K/uL (130-400); RED BLOOD CELL COUNT(AUTO) 2.61 MIL/uL (4.00-5.50); RED CELL DISTRIBUTION WIDTH 15.7 % (11.0-15.5)
[2023-10-06 11:41] LABS: ALBUMIN 2.1 g/dL (3.5-5.0); BILIRUBIN,TOTAL 0.6 mg/dL (0.2-1.0); CREATININE 0.9 mg/dL (0.5-1.0); POTASSIUM 3.5 mmol/L (3.5-5.1)
[2023-10-06 12:00] VITALS: BP 134/72; PULSE 56; RESP 18
[2023-10-06] MEDS ORDERED: COMPOUND IV MISC 1 EACH IVSOLN MISC PRN (14:00)
[2023-10-06 16:00] VITALS: BP 156/77; PULSE 71; RESP 17
[2023-10-06] MEDS ORDERED: POTASSIUM CHLORIDE 10% ELIXIR 20 MEQ/15 ML UDCUP PO PRN (17:00)
[2023-10-06] MEDS ORDERED: POTASSIUM CHLORIDE 20MEQ/100ML 100 ML IV PRN (17:00)
[2023-10-06] MEDS: KCL 20 MEQ ERTAB PO PRN (17:15)
[2023-10-06 20:00] VITALS: BP 167/79; PULSE 78; RESP 18; O2SAT 97
[2023-10-07] VITALS (8 sets, daily range): BP systolic 119–162; BP diastolic 71–85; PULSE 63–78; RESP 16–18; O2SAT 99
[2023-10-07 05:19] LABS: BASOPHILS # (AUTO) 0.04 K/uL (0.00-0.20); BASOPHILS % (AUTO) 0.3 % (0.0-5.0); EOSINOPHILS # (AUTO) 0.08 K/uL (0.00-0.70); EOSINOPHILS % (AUTO) 0.6 % (0.0-8.0); HEMATOCRIT 26.3 % (36-48); IMMATURE GRANULOCYTE ABSOLUTE 0.07 K/uL (0-1); LYMPHOCYTES # (AUTO) 1.8 K/uL (1.0-4.8); LYMPHOCYTES % (AUTO) 13.2 % (21.0-51.0); MEAN CORPUSCULAR HEMOGLOBIN 30.1 pg (27.0-33.0); MEAN CORPUSCULAR HGB CONC 33.5 g/dL (32.0-36.0); MEAN CORPUSCULAR VOLUME 90.1 fL (79-99); MONOCYTES # (AUTO) 0.9 K/uL (0.1-1.0); MONOCYTES % (AUTO) 6.6 % (3.0-13.0); NEUTROPHILS # (AUTO) 10.5 K/uL (1.8-7.7); NEUTROPHILS % (AUTO) 78.8 % (40.0-77.0); PLATELET COUNT (AUTO) 551 K/uL (130-400); RED BLOOD CELL COUNT(AUTO) 2.92 MIL/uL (4.00-5.50); RED CELL DISTRIBUTION WIDTH 15.7 % (11.0-15.5); WHITE BLOOD COUNT (AUTO) 13.3 K/uL (4.8-10.8)
[2023-10-07 05:36] LABS: ALBUMIN 2.6 g/dL (3.5-5.0); BILIRUBIN,TOTAL 0.7 mg/dL (0.2-1.0); CREATININE 0.8 mg/dL (0.5-1.0); POTASSIUM 4.1 mmol/L (3.5-5.1); TOTAL PROTEIN, SERUM 7.1 g/dL (6.0-8.3)
[2023-10-08 00:06] VITALS: BP 121/71; PULSE 66; RESP 18
[2023-10-08 04:23] VITALS: BP 141/86; PULSE 76; RESP 20
[2023-10-08 08:00] VITALS: BP 141/85; PULSE 87; RESP 16
[2023-10-08 11:22] VITALS: O2SAT 98
[2023-10-08 11:30] VITALS: BP 112/67; PULSE 64; RESP 16
== END 2023-10-08 12:00 | DRG 560 ==
LOC: EDH 15:43 → EDHIP 18:36 → 4DH 22:35
PROVIDERS: ADMIT Internal Medicine; ATTEND Internal Medicine
PROC: 30233N1 Transfusion of Nonautologous Red Blood Cells into Peripheral Vein, Percutaneous Approach (ICD-10-PCS; principal; 2023-10-04)
DX: T84.021A Dislocation of internal left hip prosthesis, initial encounter (principal); N17.9 Acute kidney failure, unspecified; I12.9 Hypertensive chronic kidney disease with stage 1 through stage 4 chronic kidney disease, or unspecified chronic kidney disease; N18.9 Chronic kidney disease, unspecified; G89.29 Other chronic pain; E03.9 Hypothyroidism, unspecified; M79.7 Fibromyalgia; E66.9 Obesity, unspecified; Z96.641 Presence of right artificial hip joint; D50.9 Iron deficiency anemia, unspecified; Z82.49 Family history of ischemic heart disease and other diseases of the circulatory system; Z90.710 Acquired absence of both cervix and uterus; Z88.1 Allergy status to other antibiotic agents; Z68.30 Body mass index [BMI] 30.0-30.9, adult; Z88.0 Allergy status to penicillin; Z88.8 Allergy status to other drugs, medicaments and biological substances; Y83.8 Other surgical procedures as the cause of abnormal reaction of the patient, or of later complication, without mention of misadventure at the time of the procedure; Y92.89 Other specified places as the place of occurrence of the external cause; Y79.2 Prosthetic and other implants, materials and accessory orthopedic devices associated with adverse incidents; Z90.49 Acquired absence of other specified parts of digestive tract
CPT/HCPCS: 36415; 36430; 73502; 80048; 80053; 82270; 82607; 82746; 83540; 83550; 83615; 83735; 84100; 84443; 84484; 85014; 85018; 85025; 85045; 85610; 85730; 86850; 86900; 86901; 86923; 93005; C9113; G0378; J1170; J1650; J1756; J2270; J2405; J2919; J3475; J7050; P9016

== ENCOUNTER 2024-05-23 09:06 | Inpatient (IN) | payer MEDICARE, OTHER ==
[2024-05-23] VITALS (24 sets, daily range): BP systolic 86–123; BP diastolic 53–83; PULSE 82–123; RESP 11–20; TEMP 97.1; O2SAT 96–100
[~2024-05-23] VITALS: Ht 162.6 cm; Wt 75.3 kg
[~2024-05-23 09:06] MED LIST changes: +ACET-3859 PO; +ASCO500T20 PO; +AUD NEB; +BUSP7.5T7 PO; +CEFP200T14 PO; +CLON0.1T PO; +DIPH1TAB PO; +DOCU100C33 PO; +FENT1PAT62 TP; +GABA-1405 PO; -GABA600T10 PO; +HYDR-3421 PO; +HYDR2TAB8 PO; +HYDR8TAB18 PO; +LACT10SO9 PO; +LOPE2TAB26 PO; +LORA2TAB80 PO; +MELA3TAB41 PO; +MULT-700 PO; +NITR0.4T50 SL; +ONDA-104 PO; +PANT40TA54 PO; +SIME80TA12 PO; +SUCR1ORA15 PO; +THYR180T2 PO; +TIZA2CAP9 PO; +TRAZ150T79 PO
--- NOTE | 2024-05-23 09:52 | HMCIMG ---
Exam Type: CHEST 1VW Clinical Information: DISTENDED ABD Comparison: None Findings: The lungs are clear of infiltrates. The heart is normal in size. The bony and soft tissue structures of the chest are unremarkable. Impression: Clear lungs.
--- NOTE | 2024-05-23 09:52 | HMCIMG ---
Exam Type: ABD 1VW Clinical Information: DISTENDED ABD Comparison: None Findings: Abdomen demonstrates no evidence of pathologic calcification or soft tissue mass. There are no radiopacities to suggest calculous disease. The intestinal gas pattern is within normal limits without evidence of dilatation to suggest obstruction or adynamic ileus. Status post bilateral hip replacement with superior displacement of the femoral from the acetabular component on the left side. Postoperative changes lumbar spine. IMPRESSION: Normal abdomen.
[2024-05-23 10:07] LABS: BASOPHILS # (AUTO) 0.07 K/uL (0.00-0.20); BASOPHILS % (AUTO) 0.2 % (0.0-5.0); EOSINOPHILS # (AUTO) 0.01 K/uL (0.00-0.70); HEMATOCRIT 34.5 % (36-48); IMMATURE GRANULOCYTE ABSOLUTE 0.48 K/uL (0-1); LYMPHOCYTES # (AUTO) 0.8 K/uL (1.0-4.8); MEAN CORPUSCULAR HEMOGLOBIN 28.2 pg (27.0-33.0); MEAN CORPUSCULAR HGB CONC 32.2 g/dL (32.0-36.0); MEAN CORPUSCULAR VOLUME 87.6 fL (79-99); MONOCYTES # (AUTO) 2.2 K/uL (0.1-1.0); MONOCYTES % (AUTO) 5.7 % (3.0-13.0); NEUTROPHILS # (AUTO) 34.6 K/uL (1.8-7.7); NEUTROPHILS % (AUTO) 90.8 % (40.0-77.0); PLATELET COUNT (AUTO) 447 K/uL (130-400); RED BLOOD CELL COUNT(AUTO) 3.94 MIL/uL (4.00-5.50); RED CELL DISTRIBUTION WIDTH 15.9 % (11.0-15.5)
[2024-05-23 10:23] LABS: CREATININE 4.7 mg/dL (0.5-1.0); POTASSIUM 4.6 mmol/L (3.5-5.1)
[2024-05-23 10:31] LABS: WHITE BLOOD COUNT (AUTO) 38.1 K/uL (4.8-10.8)
[2024-05-23 10:42] LABS: BAND NEUTROPHILS % (MANUAL) 9 % (0-2); LYMPHOCYTES % (MANUAL) 3 % (22-44); MAN.DIFF COMMENT-IMPRESSION MANUAL DIFFERENTIAL; MONOCYTES % (MANUAL) 6 % (2-9); SEGMENTED NEUTROPHILS % 82 % (40-70); TOTAL CELLS COUNTED 100
[2024-05-23 10:44] LABS: PLATELET MORPHOLOGY COMMENT SLIGHT INC; WBC MORPHOLOGY CONSISTENT W/DIFF
--- NOTE | 2024-05-23 10:58 | ERN ---
General Chief Complaint: Abdominal Pain Stated Complaint: ABD PAIN AND DISTENTION X 4 DAYS Time Seen by MD: 09:08 Source: patient History of Present Illness Initial Comments Patient is a 73-year-old female coming in to be evaluated for abdominal pain a bdominal distention. Patient states the symptoms has been been ongoing for four days. Along with the abdominal distention patient has been nauseous febrile and tachycardic. Patient states that her symptoms progressively got worse and states he can not tolerate oral intake. Allergies: Coded Allergies: butorphanol (Unverified Allergy, Intermediate, 04/06/24) Penicillins (Verified Allergy, Unknown, 07/17/16) levofloxacin (Unverified Allergy, Unknown, 04/08/24) pregabalin (Unverified Allergy, Unknown, 07/17/16) vancomycin (Verified Allergy, Unknown, 07/17/16) Uncoded Allergies: PCN (Allergy, Mild, 11/22/11) VANCO (Allergy, Unknown, 07/17/16) Home Meds Active Scripts Fentanyl (Fentanyl) 75 Mcg/Hour Patch.td72, 1 PATCH TP Q3D for 3 Days, #3 PATCH 0 Refills Prov:MARTIN GALINDO MD 05/07/24 Lorazepam (Ativan) 2 Mg Tablet, 1 TAB PO HSPRN PRN for sleep for 30 Days, #30 TAB 0 Refills Prov:MARTIN GALINDO MD 05/07/24 Hydromorphone HCl (Hydromorphone HCl) 2 Mg Tablet, 1 TAB PO TID for pain for 30 Days, #90 TAB 0 Refills Prov:MARTIN GALINDO MD 05/07/24 Diphenoxylate HCl/Atropine (Lomotil Tablet) 2.5 Mg-0.025 Mg Tablet, 1 TAB PO QID for 30 Days, #30 TAB 2 Refills Prov:MARTIN GALINDO MD 05/07/24 Reported Medications Amlodipine Besylate (Amlodipine Besylate) 5 Mg Tablet, 1 TAB PO DAILY for 30 Days, #30 TAB 0 Refills 05/07/24 Nitroglycerin (Nitroglycerin) 0.4 Mg Tab.subl, 1 TAB SL AD for chest pain, #25 TAB 0 Refills 1st sign of attack; may repeat every 5 mins; if pain persists after 3 in 15 min, medical attention is recommended 04/06/24 Tizanidine HCl (Tizanidine HCl) 2 Mg Capsule, 3 CAP PO BID for 30 Days, #60 CAP 0 Refills 04/06/24 Simethicone (Simethicone) 80 Mg Tab.chew, 1 TAB PO TID for gas for 6 Days, #20 TAB 0 Refills 04/06/24 Ondansetron HCl (Ondansetron HCl) 4 Mg Tablet, 1 TAB PO Q6HPRN PRN for nausea/vomiting, #10 TAB 0 Refills 04/06/24 Loperamide HCl (Loperamide) 2 Mg Tablet, 1 TAB PO DAILY for loose stool for 30 Days, #180 TAB 0 Refills 04/06/24 Lactulose (Lactulose) 20 Gram/30 Ml Solution, 30 ML PO Q6HPRN PRN for CONSTIPATION for 30 Days, #900 ML 0 Refills 04/06/24 Hydroxyzine HCl (Hydroxyzine HCl) 25 Mg Tablet, 1 TAB PO TID for anxiety for 30 Days, #90 TAB 0 Refills 04/06/24 Hydromorphone HCl (Hydromorphone HCl) 8 Mg Tablet, 1 TAB PO Q6HPRN PRN for pain for 30 Days, #120 TAB 0 Refills 04/06/24 Docusate Sodium (Docusate Sodium) 100 Mg Capsule, 1 CAP PO DAILY for constipat ion for 30 Days, #30 CAP 0 Refills 04/06/24 Clonidine HCl (Clonidine HCl) 0.1 Mg Tablet, 1 TAB PO TIDP PRN for IF SBP GREATER THAN 160 for 30 Days, #30 TAB 0 Refills 04/06/24 Loperamide HCl (Loperamide) 2 Mg Tablet, 1 TAB PO DAILY for loose stool for 30 Days, #180 TAB 0 Refills 04/06/24 Albuterol Sulfate (Albuterol Sulfate) 2.5 Mg/0.5 Ml Vial.neb, 1 VIAL NEB Q4H for shortness of breath for 10 Days, #30 ML 0 Refills 04/06/24 Acetaminophen (Acetaminophen) 325 Mg Tablet, 2 TAB PO Q4HPRN PRN for pain or fever for 30 Days, #30 TAB 0 Refills 04/06/24 Melatonin (Melatonin) 3 Mg Tablet, 2 TAB PO HS for sleep for 30 Days, #30 TAB 0 Refills 04/06/24 Trazodone HCl (Trazodone HCl) 150 Mg Tablet, 1 TAB PO HS for 30 Days, #30 TAB 0 Refills 04/06/24 Ascorbic Acid (Vitamin C) 500 Mg Tablet, 1 TAB PO DAILY for 30 Days, #30 TAB 0 Refills 04/06/24 Pantoprazole Sodium (Pantoprazole Sodium) 40 Mg Tablet.dr, 1 TAB PO BID for 30 Days, #30 TAB 0 Refills 04/06/24 Multivitamin W/Iron, Minerals (Multivitamins with Iron) 1 Each Tab.chew, 1 TAB PO DAILY for 30 Days, #30 TAB 0 Refills 04/06/24 Cefpodoxime Proxetil (Cefpodoxime Proxetil) 200 Mg Tablet, 1 TAB PO BID for 10 Days, #20 TAB 0 Refills 04/06/24 Buspirone HCl (Buspirone HCl) 7.5 Mg Tablet, 1 TAB PO BID for 30 Days, #60 TAB 0 Refills 04/06/24 Sucralfate (Sucralfate) 1 Gram/10 Ml Oral.susp, 10 ML PO BID for 30 Days, #600 ML 0 Refills 04/06/24 Thyroid,Pork ([place] Thyroid) 180 Mg Tablet, 1 TAB PO DAILY for 30 Days, #30 TAB 0 Refills 04/06/24 Tizanidine HCl (Tizanidine HCl) 2 Mg Tablet, 6 MG PO BID, TAB 07/11/23 Hydromorphone HCl (Dilaudid) 4 Mg Tab, 4 MG PO Q6HPRN PRN for PAIN LEVEL 6 TO 10, TAB 07/11/23 Gabapentin (Gabapentin) 600 Mg Tablet, 600 MG PO TID, TAB 07/11/23 Metoprolol Tartrate (Metoprolol Tartrate) 100 Mg Tablet, 100 MG PO BID, TAB 07/11/23 [Thyroid] No Conflict Check, 3 GR PO ACBKFST 07/11/23 Valsartan/Hydrochlorothiazide (Valsartan-Hctz 320-25 mg Tab) 320 Mg-25 Mg Tablet, 1 TAB PO DAILY, TAB 07/11/23 Fentanyl (Fentanyl) 100 Mcg/Hour Patch.td72, 1 EACH TD Q72 HRS 07/11/23 Past Medical History Past Medical History: Fibromyalgia, Hypertension Medical History Other: GENERALIZED WEAKNESS, RECURRENT L HIP DISLOCATION Past Surgical History: Unknown Surgical History Other: BILATERAL KNEE AND BILATERAL HIP REPLACEMENT. Family History Family History: Negative Social History Social History: Smokers Female( History) History: Not Applicable ROS Dictation CONSTITUTIONAL: No chills, no fever, no weakness, no diaphoresis, no malaise. HEAD/FACE: No signs of trauma. EENT: No eye pain, no blurred vision, no tearing, no double vision, no ear pain, no ear discharge, no nose pain, no nasal congestion, no throat pain, no throat swelling, no mouth pain. RESPIRATORY: No cough, no orthopnea, no SOB, no stridor, no wheezing. CARDIOVASCULAR: No chest pain, no edema, no palpitations, no syncope. GASTROINTESTINAL/ABDOMINAL: abdominal pain, no constipation, no diarrhea, nausea, vomiting. GENITOURINARY: No abnormal discharge, no dysuria, no frequent urination, no hematuria. No complaints of pain in the genitals. MUSCULOSKELETAL: No back pain, no gout, no joint pain, no joint swelling, no muscle pain, no muscle stiffness, no neck pain. INTEGUMENTARY: No change in color, no change in hair/nails, no dryness, no lesion, no lumps, no rash. NEUROLOGICAL/PSYCH: No anxiety, not depressed, no emotional problem, no headache, no numbness, no pre-existing deficit, no history of seizures, no tremors, no weakness. HEMATOLOGIC/LYMPHATIC: Not anemic, no history of blood clots, no apparent bleeding, no bruising, glands not swollen. All Systems Negative, Except as Noted. Physical Exam Physical Exam Dictation VITAL SIGNS: Reviewed. GENERAL APPEARANCE: Alert, oriented x3, no acute distress, obese. HEAD AND FACE: Non-traumatic. EYES: PERRL, pink conjunctivas, eyelid no trauma, anterior chamber clear. EARS: Pinnas intact and no signs of trauma or erythema. Ear canals clear and no discharge. TMs no erythema. NOSE: No discharge, no bleeding. OROPHARYNX: Mouth normal, teeth no caries, tongue pink. Pharynx clear, no erythema. Tonsils no exudates, no abscesses noted. Mucous membrane moist. NECK: Supple, non-tender, no thyromegaly, no masses, no JVD, no bruits. BREAST: Deferred. CHEST: No tenderness, no crepitus, no paradoxical movement, no retractions. LUNGS: Clear, well-ventilated, symmetric, no rales, no wheezing, no rhonchi, no stridor, good breath sounds bilaterally. HEART: Regular rate, regular rhythm, no murmur, no gallops. VASCULAR: No peripheral edema. ABDOMEN: Soft, positive bowel sounds, distended, no guarding, tender, no rebound, no masses no hepatomegaly, no splenomegaly, no Pimentel's sign, no hernias. RECTAL: Deferred. GENITAL: Deferred. NEUROLOGICAL: Normal speech, gross motor function intact, gross sensory function intact. MUSCULOSKELETAL: Neck nontender, full range of motion, back nontender, full range of motion. EXTREMITIES: Nontender, full range of motion. SKIN: Color pink, dry, no turgor, no rash, no lacerations, no abrasions, no contusions. LYMPHATICS: Deferred. Results Laboratory and Microbiology Lab and Micro Result Laboratory Tests Test 05/23/24 09:47 05/23/24 11:15 05/23/24 11:22 White Blood Count 38.1 K/uL (4.8-10.8) *H Red Blood Count 3.94 MIL/uL (4.00-5.50) L Hemoglobin 11.1 g/dL (12.0-16.0) L Hematocrit 34.5 % (36-48) L Mean Corpuscular Volume 87.6 fL (79-99) Mean Corpuscular Hemoglobin 28.2 pg (27.0-33.0) Mean Corpuscular Hemoglobin Concent 32.2 g/dL (32.0-36.0) Red Cell Distribution Width 15.9 % (11.0-15.5) H Platelet Count 447 K/uL (130-400) H Mean Platelet Volume 8.5 fL (7.5-10.5) Immature Granulocyte % (Auto) 1.3 % (0-1) H Neutrophils (%) (Auto) 90.8 % (40.0-77.0) H Lymphocytes (%) (Auto) 2.0 % (21.0-51.0) L Monocytes (%) (Auto) 5.7 % (3.0-13.0) Eosinophils (%) (Auto) 0.0 % (0.0-8.0) Basophils (%) (Auto) 0.2 % (0.0-5.0) Neutrophils # (Auto) 34.6 K/uL (1.8-7.7) H Lymphocytes # (Auto) 0.8 K/uL (1.0-4.8) L Monocytes # (Auto) 2.2 K/uL (0.1-1.0) H Eosinophils # (Auto) 0.01 K/uL (0.00-0.70) Basophils # (Auto) 0.07 K/uL (0.00-0.20) Absolute Immature Granulocyte (auto 0.48 K/uL (0-1) Segmented Neutrophils % 82 % (40-70) H Band Neutrophils % 9 % (0-2) H Lymphocytes % (Manual) 3 % (22-44) L Monocytes % (Manual) 6 % (2-9) Nucleated Red Blood Cells 0.0 % (0.0-0.19) Differential Comment MANUAL DIFFERENTIAL White Cell Morphology Comment CONSISTENT W/DIFF Platelet Morphology Comment SLIGHT INC Red Blood Cell Morphology See comments Sodium Level 128 mmol/L (136-145) L Potassium Level 4.6 mmol/L (3.5-5.1) Chloride Level 86 mmol/L (101-111) *L Carbon Dioxide Level 30 mmol/L (21-32) Blood Urea Nitrogen 67 mg/dL (7-18) H Creatinine 4.7 mg/dL (0.5-1.0) H Glomerular Filtration Rate Calc 9 mL/min (>90) Random Glucose 130 mg/dL (70-105) H Lactic Acid Level 2.3 mmol/L (0.8-2.5) Total Calcium 10.5 mg/dL (8.5-10.1) H Total Creatine Kinase 574 U/L (21-232) #*H Troponin I High Sensitivity 27 ng/L (4-50) Influenza Type A Antigen Negative For Type A Influenza Type B Antigen Negative For Type B SARS-CoV-2, RNA, NAAT NEGATIVE SARS CoV-2 Urine Color BROWN (YELLOW) H Urine Appearance TURBID (CLEAR) Urine pH 5.0 (5.0-8.0) Urine Specific [place] 1.022 (1.001-1.031) Urine Protein 70 mg/dL (NEGATIVE) H Urine Glucose (UA) NEGATIVE mg/dL (NEGATIVE) Urine Ketones NEGATIVE mg/dL (NEGATIVE) Urine Occult Blood SMALL (NEGATIVE) H Urine Nitrate NEGATIVE (NEGATIVE) Urine Bilirubin NEGATIVE mg/dL (NEGATIVE) Urine Urobilinogen 0.2 mg/dL (0.2-1.0) Urine Leukocyte Esterase 500 [place]/uL (NEGATIVE) H Urine RBC >100 /HPF (0-1) H Urine WBC TNTC /HPF (0-1) H Urine Squamous Epithelial Cells MOD /HPF (0-2) Urine Bacteria MOD /HPF (None Seen) Labs Reviewed?: Yes EKG/XRAY/US/CT/MRI EKG Comment 05/23/2024 time 9:07 a.m. Ventricular rate 137 Sinus tachycardia [place] [address] wave elevation or depression CT Scan Comment [facility] [address] [place] [id number] IMAGING REPORT Signed PATIENT: JOSÉ MIGUEL OSORIO MR#: [id number] : 1950 SEX: F AGE: 73 LOCATION: [facility] ORDER 1033 STATUS: REG ER REPORT#: [id number] SERVICE 1032 REASON: abd distension , sepsis ORDERING PHYSICIAN: SAVANNA GRAF MD PROCEDURE: ABD PEL WO - CT ABDOMEN/PELVIS W/O CONTRAST Exam Type: CT ABDOMEN/PELVIS W/O CONTRAST Clinical Information: abd distension , sepsis Comparison: None CT Dose Index (CTDI): 10.20 mGy Dose Length Product (DLP): 530.00 total mGy-cm PROTOCOL: Routine noncontrast helical scanning of the abdomen and pelvis was performed at 5mm collimation. Findings: No evidence of nephro or ureterolithiasis is found. No hydronephrosis or ureteral dilatation is seen. Bilateral basal pneumonic infiltrates. Follow-up is advised. The stomach is distended. The spleen is unremarkable. It is not enlarged. The pancreas shows normal anatomy. It is not fatty replaced. It shows no lesions. The pancreatic duct is not dilated. The gallbladder is unremarkable. It shows no cholelithiasis. The gallbladder wall is normal in thickness. There is no pericholecystic fluid. The is no acute or chronic inflammation noted. The adrenal glands are unremarkable. There is no enlargement. No lesions are noted. The liver is unremarkable. It shows no focal masses. The appendix is unremarkable. It shows no evidence of inflammation. No appendicolith is seen. Dilatation of multiple small bowel loops is seen with distal transition point consistent with distal small bowel obstruction. The colon is unremarkable. The urinary bladder is unremarkable. There is no wall thickening to suggest tumor or inflammation. There are no intraluminal calculi. There are no diverticula. There is no evidence of chronic bladder outlet obstruction. There is no evidence of urinary bladder distention to suggest urinary retention. The other pelvic structures are unremarkable. Status post bilateral hip replacement with cephalad dislocation of the left femoral component. IMPRESSION: Small bowel obstruction. Bilateral basal pneumonia. This study was performed using dose reduction techniques to include automated exposure control and/or adjustment of the mA and/or kV according to patient size. DICTATED BY: NGOC ELIZABETH MD DATE: 05/23/24 1156 ELECTRONICALLY SIGNED BY: NGOC ELIZABETH MD DATE: 05/23/[address] [facility] MDM: Differential diagnosis: SMALL BOWEL OBSTRUCTION, SEPSIS, UTI, Rationale: Tests considered and ordered secondary to shared decision making include: labs, ECG and radiology Previous outside records reviewed: Old ER visits. Risk of complication and/or morbidity or mortality of patient management: None Medications-Per medication reconciliation Need for hospitalization: Patient does meet criteria for hospitalization. Need for emergency major/minor surgery: yes There are no social concerns with this patient. Prescription drug management Prescriptions will include symptomatic care Patient's prior external medical records from other ER visits were reviewed by me as indicated. Prior testing and results from previous visits were reviewed. Prior tests were taken into account with medical decision making and resource utilization, independent historian/historians were used to obtain complete medical history. I independently interpreted the test that were performed, results were reviewed by me and considered findings on radiology if ordered. Medical management and examination interpretation discussions were had by me with other qualified healthcare professionals as indicated for the patient's care. PATIENT IS A 73-YEAR-OLD FEMALE COMING IN TO BE EVALUATED FOR ABDOMINAL PAIN. CT DISCLOSE BOWEL OBSTRUCTION PATIENT DID SET UP THE SEPSIS ALERT SECONDARY TO ELEVATED WHITE BLOOD CELL COUNT. pt WILL BE ADMITTED UNDER THE CA RE OF HOSPITALIST GROUP FOR ONGOING MANAGEMENT, Dr. Valenzuela surgeon on-call consulted as well ED Course Orders Procedure Category Date Status Time Iv Insertion CPOE 05/23/24 Transmitted 09:08 Pulse Ox(Continuous) RT 05/23/24 Transmitted 09:08 Vital Signs Per CPOE 05/23/24 Transmitted Routine 09:08 12 Lead Ekg Tracing- EKG 05/23/24 Logged Technical 09:08 Cbc With Differential LAB 05/23/24 In Process 09:08 Blood Cult RICARDO 05/23/24 In Process 09:08 Urinalysis Profile LAB 05/23/24 Complete 09:08 Culture Urine RICARDO 05/23/24 In Process 09:08 Creatine Kinase, Total LAB 05/23/24 Complete 09:08 Troponin I High LAB 05/23/24 Complete Sensitivity 09:08 Lactic Acid LAB 05/23/24 Complete 09:08 Basic Metabolic Panel LAB 05/23/24 Complete 09:08 Abd 1vw RAD 05/23/24 Resulted 09:09 Chest 1vw RAD 05/23/24 Resulted 09:09 Manual Differential LAB 05/23/24 In Process 09:47 Ct Abdomen/Pelvis W/O CT 05/23/24 Resulted Contrast 10:32 0.9%Nacl 1000ml (Ns PHA 05/23/24 In Process 1000ml) 11:00 Nurse Driven [place] NANCY 05/23/24 In Process Removal Pro 11:03 Covid Rna Naat LAB 05/23/24 Complete 11:03 Influenza Type A & B, LAB 05/23/24 Complete Rapid 11:03 Linezolid 600 PHA 05/23/24 In Process Mg/Iso-Osm (Zyvox 600 11:30 Ketorolac PHA 05/23/24 In Process Tromethamine 15mg/Ml 12:30 Infectious Disease CONPHYSVC 05/23/24 Transmitted Consult 12:09 Nephrology Consult CONPHYS 05/23/24 Transmitted 12:11 Vital Signs(Adult CPOE 05/23/24 Transmitted Hospitalist) 12:10 Nurse To Enter Home CPOE 05/23/24 Transmitted Medication 12:10 Admit Orders ADM 05/23/24 Transmitted 12:10 Edm Admit Bridge Order ADM 05/23/24 Transmitted 12:10 General Surgery CONPHYSVC 05/23/24 Transmitted Consult 12:12 Ng Tube Insertion CPOE 05/23/24 Verified 12:22 Current Medications Medications (Trade) Dose Ordered Sig/Dionisio Route PRN Reason Start Time Stop Time Status Last Admin Dose Admin Ketorolac Tromethamine (toRADol) 15 mg ONCE ONCE IV 05/23/24 12:30 05/23/24 12:31 05/23/24 12:12 Linezolid 300 ml @ 150 mls/hr Q12H IV 05/23/24 11:30 06/02/24 11:29 05/23/24 11:55 Sodium Chloride 2,040 ml @ 680 mls/hr ONCE ONCE IV 05/23/24 11:00 05/23/24 13:59 05/23/24 10:59 Vital Signs Date Time Temp Pulse Resp B/P (MAP) Pulse Ox O2 Delivery O2 Flow Rate FiO2 05/23/24 11:36 98.8 127 20 95/61 96 Nasal Cannula* 4 36 05/23/24 10:30 138 20 88/60 92 Nasal Cannula* 4 36 05/23/24 09:14 98.8 137 26 157/96 91 Nasal Cannula 4.0 Critical Care Note Comments Critical Care Procedure Note Authorized and Performed by: me Total critical care time: Approximately 36 minutes Due to a high probability of clinically significant, life threatening deterioration, the patient required my highest level of preparedness to intervene emergently and I personally spent this critical care time directly and personally managing the patient. This critical care time included obtaining a history; examining the patient; pulse oximetry; ordering and review of studies; arranging urgent treatment with development of a management plan; evaluation of patient's response to treatment; frequent reassessment; and, discussions with other providers. This critical care time was performed to assess and manage the high probability of imminent, life-threatening deterioration that could result in multi-organ failure. It was exclusive of separately billable procedures and treating other patients and teaching time. Please see MDM section and the rest of the note for further information on patient assessment and treatment. DX & DISP Disposition: Inpatient Decision to Admit Time: 12:24 Departure Impression: Primary Impression: Sepsis Additional Impression: Small bowel obstruction Condition: Stable Referrals: MAMIE RODRIGUEZ MD (PCP) SAVANNA GRAF MD May 23, 2024 10:58
[2024-05-23] MEDS: 0.9%NACL 1000ML 2,040 ML IV ONE (10:59)
--- NOTE | 2024-05-23 11:08 | NUR ---
REPORT ENDORSED TO PEDRO BRUSH
[2024-05-23 11:37] LABS: SARS-CoV-2, RNA, NAAT NEGATIVE SARS CoV-2 (NEGATIVE)
[2024-05-23 11:42] LABS: INFLUENZA TYPE A Negative For Type A (NEGATIVE); INFLUENZA TYPE B Negative For Type B (NEGATIVE)
[2024-05-23] MEDS: LINEZOLID 600 MG/ISO-OSM 300 ML IV SCH (11:55)
[2024-05-23 11:59] LABS: APPEARANCE,URINE TURBID (CLEAR); BILIRUBIN,URINE NEGATIVE (NEGATIVE); GLUCOSE, URINE (UA) NEGATIVE (NEGATIVE); KETONES,URINE NEGATIVE (NEGATIVE); LEUKOCYTE ESTERASE ,URINE 500 Leu/uL (NEGATIVE); NITRATE,URINE NEGATIVE (NEGATIVE); OCCULT BLOOD,URINE SMALL (NEGATIVE); PROTEIN,URINE 70 mg/dL (NEGATIVE); UROBILINOGEN,URINE 0.2 mg/dL (0.2-1.0)
--- NOTE | 2024-05-23 12:02 | HMCIMG ---
Exam Type: CT ABDOMEN/PELVIS W/O CONTRAST Clinical Information: abd distension , sepsis Comparison: None CT Dose Index (CTDI): 10.20 mGy Dose Length Product (DLP): 530.00 total mGy-cm PROTOCOL: Routine noncontrast helical scanning of the abdomen and pelvis was performed at 5mm collimation. Findings: No evidence of nephro or ureterolithiasis is found. No hydronephrosis or ureteral dilatation is seen. Bilateral basal pneumonic infiltrates. Follow-up is advised. The stomach is distended. The spleen is unremarkable. It is not enlarged. The pancreas shows normal anatomy. It is not fatty replaced. It shows no lesions. The pancreatic duct is not dilated. The gallbladder is unremarkable. It shows no cholelithiasis. The gallbladder wall is normal in thickness. There is no pericholecystic fluid. The is no acute or chronic inflammation noted. The adrenal glands are unremarkable. There is no enlargement. No lesions are noted. The liver is unremarkable. It shows no focal masses. The appendix is unremarkable. It shows no evidence of inflammation. No appendicolith is seen. Dilatation of multiple small bowel loops is seen with distal transition point consistent with distal small bowel obstruction. The colon is unremarkable. The urinary bladder is unremarkable. There is no wall thickening to suggest tumor or inflammation. There are no intraluminal calculi. There are no diverticula. There is no evidence of chronic bladder outlet obstruction. There is no evidence of urinary bladder distention to suggest urinary retention. The other pelvic structures are unremarkable. Status post bilateral hip replacement with cephalad dislocation of the left femoral component. IMPRESSION: Small bowel obstruction. Bilateral basal pneumonia. This study was performed using dose reduction techniques to include automated exposure control and/or adjustment of the mA and/or kV according to patient size.
[2024-05-23 12:03] LABS: ADD UA MICROSCOPIC YES; COLOR,URINE BROWN (YELLOW)
[2024-05-23] MEDS: ketOROlac 15MG/ML VIAL (15MG/ML) IV ONE (12:12)
[2024-05-23 12:18] LABS: BACTERIA,URINE MOD /HPF (None Seen); RBC,URINE >100 /HPF (0-1); SQUAMOUS EPITHELIAL CELL,UR MOD /HPF (0-2); WBC,URINE TNTC /HPF (0-1)
--- NOTE | 2024-05-23 12:26 | NUR ---
SURGICAL CONSULT: I SPOKE TO AND INFORMED DR DELUNA ABOUT THE PT
--- NOTE | 2024-05-23 13:00 | NUR ---
PER DR FRAIRE, PENDING RADIOLOGIST TO READ X RAY FOR NG TUBE PLACEMENT
--- NOTE | 2024-05-23 13:01 | NUR ---
PT ON SECOND BAG OF NS CURRENTLY
--- NOTE | 2024-05-23 13:13 | HP ---
[facility] HISTORY AND PHYSICAL Date of Service: May 23, 2024 Time of Service: 13:12 HISTORY OF PRESENT ILLNESS: Date of service: 05/23/2024 This 73-year-old female with past medical history of hypertension hypothyroidism, diabetes mellitus type, history of chronic left hip pain with hip dislocation, anemia presented to the hospital secondary to abdominal pain, nausea, vomiting. Patient's history is obtained from patient and from chart review. Patient was recently admitted to [facility] for over a month. She was discharged on May 18, 2024. During admission patient was found to bowel obstruction and had NG tube placed. Patient was noted to be on chronic pain medications including fentanyl. Surgery was consulted during hospitalization. Patient was in the hospital for more than a month. Her symptoms improved and then she was discharged to [facility] facility. P atient states for the past 2-3 days she has noted increasing abdominal distention with associated nausea and vomiting. She also complains of abdominal pain. She has not been eating very well and states she has been mostly sitting in a chair. She has noted decreased urination and decreased appetite. She denied any fever, chills, chest pain, shortness of breath, falls, syncopal e pisode. She appears very frail when seen at bedside. Secondary to non improving symptoms patient thereafter came to the hospital for further evaluation. Patient has history of chronic hip dislocation and from chart review patient was not a surgical candidate. Labs were notable for white count of 38.1, hemoglobin was 11.5, platelet count is 447 K, sodium is 128, potassium was 4.6, chloride is 86, creatinine is 4.7, BUN is 67, CK is 574, calcium is 10.5, glucose is 130, lactic acid is two point, troponin is negative x1. Patient underwent CT abdomen pelvis which showed small bowel obstruction. Concern for possible bilateral basal pneumonia. Patient is Hearn catheter was noted to be cloudy. REVIEW OF SYSTEMS CONSTITUTIONAL: Denies fevers, chills, or night sweats. No unintentional weight loss reported. NEUROLOGICAL: Denies headache, amaurosis fugax, motor weakness, sensory deficit, vertigo/spinning sensation, gait abnormalities, or tremors. ENT: No hearing loss, otalgia, otorrhea, rhinitis, rhinorrhea, hoarseness, or sore throat. CARDIOVASCULAR: Denies any exertional angina, dyspnea on exertion, orthopnea, paroxysmal nocturnal dyspnea, palpitations, life-threatening arrhythmias, claudication. PULMONARY: Denies any shortness of breath, cough, phlegm/sputum, hemoptysis, pleuritic chest pain. GASTROINTESTINAL: Positive for abdominal pain, nausea, vomiting. Denied any melena, hematochezia hematemesis. GENITOURINARY: Denies frequency, urgency, nocturia, hematuria or incontinence (Storage/Irritative symptoms.) Low urinary stream, straining to void, urinary intermittency or hesitancy, splitting of the voiding stream, terminal dribbling. ENDOCRINOLOGIC: Denies polyuria, polydipsia, polyphagia or heat/cold intolerances. HEMATOLOGIC: Denies thrombophilia/previous clots, or coagulopathy/bleeding disorders. ONCOLOGIC: Denies personal history of malignancy. DERMATOLOGIC: Denies rashes or pruritus. PSYCHIATRIC: Denies any suicidal or homicidal ideation. Denies hallucinations. PAST MEDICAL HISTORY: Hypertension, hypothyroidism, diabetes mellitus type 2 PAST SURGICAL HISTORY: History of hysterectomy, bilateral hip replacement. PAST SOCIAL HISTORY: Denied any smoking, alcohol, drug use FAMILY HISTORY: Denied any pertinent family history Coded Allergies: butorphanol (Unverified Allergy, Intermediate, 04/06/24) Penicillins (Verified Allergy, Unknown, 07/17/16) levofloxacin (Unverified Allergy, Unknown, 04/08/24) pregabalin (Unverified Allergy, Unknown, 07/17/16) vancomycin (Verified Allergy, Unknown, 07/17/16) Uncoded Allergies: PCN (Allergy, Mild, 11/22/11) VANCO (Allergy, Unknown, 07/17/16) PHYSICAL EXAM GENERAL APPEARANCE: The patient is awake, alert, and oriented, in no acute cardiopulmonary distress. Appears frail NEUROLOGICAL: Cranial nerves II-XII grossly intact. Motor is 5/5 in bilateral upper and lower extremities proximal to distal. No sensory deficits. HEENT: Face is symmetric. Pupils are equal and reactive. Extraocular movements are intact. NECK: Supple. No JVD. No thyromegaly. No submental, submandibular, pre- /postauricular, occipital or supraclavicular lymphadenopathy. CHEST: Normal chest expansion. No Telemetry. LUNGS: Absence of any rales, rhonchi or any wheezing. CARDIOVASCULAR: Regular. S1 and S2 normal. No appreciable rubs, murmurs or gallops. ABDOMEN: Soft, patient's abdomen is distended. She has a NG tube in place. No guarding, no rebound noted : Deferred. No Hearn. EXTREMITIES: Non-edematous and not cyanotic. No clubbing. Good capillary refill. SKIN: No skin breakdown. Vital Sign (Last 24 Hours) 05/23/24 12:53 Temp 98.8 Pulse 120 Resp 20 B/P (MAP) 108/72 Pulse Ox 91 O2 Delivery Nasal Cannula* O2 Flow Rate 4.0 FiO2 N/A LABS: Laboratory: Test 05/23/24 11:22 05/23/24 11:15 05/23/24 09:47 Range/Units Urine Color BROWN H YELLOW Urine Appearance TURBID CLEAR Urine pH 5.0 5.0-8.0 Urine Specific [place] 1.022 1.001-1.031 Urine Protein 70 H NEGATIVE mg/dL Urine Glucose (UA) NEGATIVE NEGATIVE mg/dL Urine Ketones NEGATIVE NEGATIVE mg/dL Urine Occult Blood SMALL H NEGATIVE Urine Nitrate NEGATIVE NEGATIVE Urine Bilirubin NEGATIVE NEGATIVE mg/dL Urine Urobilinogen 0.2 0.2-1.0 mg/dL Urine Leukocyte Esterase 500 H NEGATIVE Marley/uL Urine RBC >100 H 0-1 /HPF Urine WBC TNTC H 0-1 /HPF Urine Squamous Epithelial Cells MOD 0-2 /HPF Urine Bacteria MOD None Seen /HPF Influenza Type A Antigen Negative For Type A NEGATIVE Influenza Type B Antigen Negative For Type B NEGATIVE SARS-CoV-2, RNA, NAAT NEGATIVE SARS CoV-2 NEGATIVE White Blood Count 38.1 *H 4.8-10.8 K/uL Red Blood Count 3.94 L 4.00-5.50 MIL/uL Hemoglobin 11.1 L 12.0-16.0 g/dL Hematocrit 34.5 L 36-48 % Mean Corpuscular Volume 87.6 79-99 fL Mean Corpuscular Hemoglobin 28.2 27.0-33.0 pg Mean Corpuscular Hemoglobin Concent 32.2 32.0-36.0 g/dL Red Cell Distribution Width 15.9 H 11.0-15.5 % Platelet Count 447 H 130-400 K/uL Mean Platelet Volume 8.5 7.5-10.5 fL Immature Granulocyte % (Auto) 1.3 H 0-1 % Neutrophils (%) (Auto) 90.8 H 40.0-77.0 % Lymphocytes (%) (Auto) 2.0 L 21.0-51.0 % Monocytes (%) (Auto) 5.7 3.0-13.0 % Eosinophils (%) (Auto) 0.0 0.0-8.0 % Basophils (%) (Auto) 0.2 0.0-5.0 % Neutrophils # (Auto) 34.6 H 1.8-7.7 K/uL Lymphocytes # (Auto) 0.8 L 1.0-4.8 K/uL Monocytes # (Auto) 2.2 H 0.1-1.0 K/uL Eosinophils # (Auto) 0.01 0.00-0.70 K/uL Basophils # (Auto) 0.07 0.00-0.20 K/uL Absolute Immature Granulocyte (auto 0.48 0-1 K/uL Segmented Neutrophils % 82 H 40-70 % Band Neutrophils % 9 H 0-2 % Lymphocytes % (Manual) 3 L 22-44 % Monocytes % (Manual) 6 2-9 % Nucleated Red Blood Cells 0.0 0.0-0.19 % Differential Comment MANUAL DIFFERENTIAL White Cell Morphology Comment CONSISTENT W/DIFF Platelet Morphology Comment SLIGHT INC Red Blood Cell Morphology See comments Sodium Level 128 L 136-145 mmol/L Potassium Level 4.6 3.5-5.1 mmol/L Chloride Level 86 *L 101-111 mmol/L Carbon Dioxide Level 30 21-32 mmol/L Blood Urea Nitrogen 67 H 7-18 mg/dL Creatinine 4.7 H 0.5-1.0 mg/dL Glomerular Filtration Rate Calc 9 >90 mL/min Random Glucose 130 H 70-105 mg/dL Lactic Acid Level 2.3 0.8-2.5 mmol/L Total Calcium 10.5 H 8.5-10.1 mg/dL Total Creatine Kinase 574 #*H 21-232 U/L Troponin I High Sensitivity 27 4-50 ng/L Current Medications Medications (Trade) Dose Ordered Sig/Dionisio Route PRN Reason Start Time Stop Time Status Last Admin Dose Admin Linezolid 300 ml @ 150 mls/hr Q12H IV 05/23/24 11:30 06/02/24 11:29 05/23/24 11:55 150 MLS/HR DIAGNOSTICS / RADIOLOGY: [ ] ASSESSMENT: Severe sepsis POA Hypotension improved POA Small bowel obstruction POA UTI POA Dehydration Acute kidney injury POA Hyponatremia Mild CK elevation Hyperchloremia History of chronic opioid use Frailty Debility History of chronic left hip dislocation POA PLAN: - patient to be admitted to ICU -in reference to small-bowel obstruction. The patient will continue on NG tube on low intermittent wall suction. The patient to be started on NS for hydration. General surgery has been consulted. Patient initially NPO for now -reference to severe sepsis. Follow up on blood cultures, urine culture. Patient to continue on Zyvox and we will be started on meropenem. We will request ID consultation -reference to acute kidney injury. Patient to be started on NS. Check urine sodium, urine creatinine. Patient noted to be on losartan and hydrochlorothiazide which will be stopped. We will request nephrology consultation -obtain critical Care consultation -patient will be on Dilaudid for pain control -further orders per hospitalization course. Advanced Care Planning Which of the following were discussed: Hospice care: Yes __ No _x_ Therapeutic options: Yes __ No __ Advance directives: Yes __ No __ Other discussions: Pt is DNR/DNI. CODE Status was discussed with nurse present as witness. Pt stated she was DNR/DNI Discussed with who?: Patient (Patient, family or surrogates) Voluntary nature of this service was explained to the patient? Yes _x_ No __ Amount of time spent: 35 minutes Total critical care time spend > 35 minutes LINDSEY Rivers MD, MD May 23, 2024 13:12
--- NOTE | 2024-05-23 13:26 | NUR ---
PER DR HUNTER LET HIM KNOW PT RM NUMBER WHEN UPSTAIRS
[2024-05-23] MEDS ORDERED: hydroMORPHone 0.5 MG SYG (0.5MG/0.5ML) IVP PRN (13:30)
[2024-05-23] MEDS ORDERED: PHARMACY COMMUNICATION 1 EACH EACH MISC SCH (13:30)
[2024-05-23 13:36] LABS: INR 1.03 (0.85-1.15); PROTHROMBIN TIME 11.5 SEC (9.6-11.6)
[2024-05-23 13:37] LABS: PARTIAL THROMBOPLASTIN TIME 29.5 SEC (26.3-35.5)
[2024-05-23] MEDS: 0.9%NACL 1000ML 1,000 ML IV SCH (13:42)
[2024-05-23] MEDS: MEROPENEM 1GM 1 GM VIAL IVPB SCH (14:00)
--- NOTE | 2024-05-23 14:08 | CONS ---
[facility] CONSULTATION NOTE Date Patient Seen: May 23, 2024 Time of Visit: 14:08 Supervising Physician: Kolby Dias MD Reason for Consultation: Hypotension TERRANCE and critical care Primary Care Physician: Chapincito Guardado MD Outpatient Specialists: Inpatient Consults: LEATHA Farrell (Critical care team) , Dr Augustus Ferguson, Dr Eduardo PROBLEM LIST: Acute hypoxic respiratory failure, POA septic shock POA , no responsive to IVF, Requiring Levophed Suspected CAP, POA Small bowel obstruction POA Acute complicated cystitis, POA Hematuria POA Severe Dehydration Acute kidney injury POA Electrolyte derangement POA ( Hyponatremia, Hyperchloremia) History of chronic opioid use Frailty Debility History of chronic left hip dislocation, Opiate induced Illeus, Hypothyroidism, multiple recent hospitalizations with long hospital stay, opiate overdose w/ morphine, and fibromyalgia, Osteoarthritis , spinal cord stimulation (SCS) HPI: This is a chronically ill 73-year-old female with a past medical history of hypertension, hypothyroidism, type 2 diabetes mellitus, history of chronic left hip pain with dislocation, anemia, chronic opiate use for chronic pain, who presented from an assisted living home via ems to the emergency department for evaluation abdominal pain, nausea, and vomiting. Pt was admitted by the [facility] for small bowel bstruction and we were consulted for critical care. On initial assessment of patient she was lethargic, blood pressure 176/56 with a heart rate 110, respiratory rate of 13, saturating 91% with 4 L via nasal cannula and afebrile. GCS of 13. Initial WBCs were 38.1 on repeat 30.5 H&H was stable at 10.1 platelet count of 408k. Neutrophils were 88.2. Chemistries sodium is 131 potassium 4.3 chloride of 91 carbon dioxide of 30, BUN of 68 creatinine of 4.3 and GFR of 10 with a glucose of 138 mg/dL lactic acid was 1.5 total calcium 9.1 with a phosphorus of 5.6 ammonia less than 10 albumin 2.1 and procalcitonin 0.99. Initial CK 574. Sensitive troponin 27. Urine color was brown with protein of 70 occult blood small leukocyte esterase 500, RBCs greater than 100 WBCs TNTC. Influenza Negative and Covid 19 negative. Chest XR with no acute pulmonary infiltrates per radiology report. There is atelectasis to RLL. On CT abdomen impression showed small bowel obstruction. I informed patient that she would require vasopressors and bed way to administer would be through a central line inform her of the benefits and risks of having a central line placement. Patient verbalized consent for a central line placement at this time. She has signed DNR as per primary MD and RN. PAST MEDICAL HX: see above PAST SURGICAL HX: noncontributory SOCIAL HISTORY: No tobacco, ETOH, or illicit drug use Coded Allergies: butorphanol (Unverified Allergy, Intermediate, 04/06/24) Penicillins (Verified Allergy, Unknown, 07/17/16) levofloxacin (Unverified Allergy, Unknown, 04/08/24) pregabalin (Unverified Allergy, Unknown, 07/17/16) vancomycin (Verified Allergy, Unknown, 07/17/16) Uncoded Allergies: PCN (Allergy, Mild, 11/22/11) VANCO (Allergy, Unknown, 07/17/16) REVIEW OF SYSTEMS: unable to perform due to pt encephalopathic PHYSICAL EXAM: GENERAL: Lethargic weak, awake oriented x 2 HEENT: Sclera non icteric, moist mucosa NECK: Supple, no JVD, trachea midline LUNGS: Clear breath sounds bilaterally. No wheezes HEART: Regular rate and rhythm. Normal S1 and S2, without murmurs ABD: abdomen distended but sof non tender, Bowel sounds hypoactive EXT: No clubbing cyanosis or edema NEURO: Lethargic with GBW Vital Signs (last 8hr) Date Time Temp Pulse Resp B/P (MAP) Pulse Ox O2 Delivery O2 Flow Rate FiO2 05/23/24 12:53 98.8 120 20 108/72 91 Nasal Cannula* 4.0 N/A 05/23/24 11:36 98.8 127 20 95/61 96 Nasal Cannula* 4 36 05/23/24 10:30 138 20 88/60 92 Nasal Cannula* 4 36 05/23/24 09:14 98.8 137 26 157/96 91 Nasal Cannula 4.0 LABS: Hematology Labs: Test 05/23/24 09:47 Range/Units White Blood Count 38.1 *H 4.8-10.8 K/uL Red Blood Count 3.94 L 4.00-5.50 MIL/uL Hemoglobin 11.1 L 12.0-16.0 g/dL Hematocrit 34.5 L 36-48 % Mean Corpuscular Volume 87.6 79-99 fL Mean Corpuscular Hemoglobin 28.2 27.0-33.0 pg Mean Corpuscular Hemoglobin Concent 32.2 32.0-36.0 g/dL Red Cell Distribution Width 15.9 H 11.0-15.5 % Platelet Count 447 H 130-400 K/uL Mean Platelet Volume 8.5 7.5-10.5 fL Immature Granulocyte % (Auto) 1.3 H 0-1 % Neutrophils (%) (Auto) 90.8 H 40.0-77.0 % Lymphocytes (%) (Auto) 2.0 L 21.0-51.0 % Monocytes (%) (Auto) 5.7 3.0-13.0 % Eosinophils (%) (Auto) 0.0 0.0-8.0 % Basophils (%) (Auto) 0.2 0.0-5.0 % Neutrophils # (Auto) 34.6 H 1.8-7.7 K/uL Lymphocytes # (Auto) 0.8 L 1.0-4.8 K/uL Monocytes # (Auto) 2.2 H 0.1-1.0 K/uL Eosinophils # (Auto) 0.01 0.00-0.70 K/uL Basophils # (Auto) 0.07 0.00-0.20 K/uL Absolute Immature Granulocyte (auto 0.48 0-1 K/uL Segmented Neutrophils % 82 H 40-70 % Band Neutrophils % 9 H 0-2 % Lymphocytes % (Manual) 3 L 22-44 % Monocytes % (Manual) 6 2-9 % Nucleated Red Blood Cells 0.0 0.0-0.19 % Differential Comment MANUAL DIFFERENTIAL White Cell Morphology Comment CONSISTENT W/DIFF Platelet Morphology Comment SLIGHT INC Red Blood Cell Morphology See comments Chemistry Labs: Test 05/23/24 13:14 05/23/24 09:47 Range/Units Lactic Acid Level 1.6 0.8-2.5 mmol/L Sodium Level 128 L 136-145 mmol/L Potassium Level 4.6 3.5-5.1 mmol/L Chloride Level 86 *L 101-111 mmol/L Carbon Dioxide Level 30 21-32 mmol/L Blood Urea Nitrogen 67 H 7-18 mg/dL Creatinine 4.7 H 0.5-1.0 mg/dL Glomerular Filtration Rate Calc 9 >90 mL/min Random Glucose 130 H 70-105 mg/dL Total Calcium 10.5 H 8.5-10.1 mg/dL Total Creatine Kinase 574 #*H 21-232 U/L Troponin I High Sensitivity 27 4-50 ng/L Coagulation Labs: Test 05/23/24 13:14 Range/Units Prothrombin Time 11.5 9.6-11.6 SEC Prothromb Time International Ratio 1.03 0.85-1.15 Activated Partial Thromboplast Time 29.5 26.3-35.5 SEC DIAGNOSTICS / RADIOLOGY RESULTS: [ ] Signed PATIENT: JOSÉ MIGUEL OSORIO MR#: [id number] : 1950 SEX: F AGE: 73 LOCATION: [facility] ORDER [id number] STATUS: REG ER REPORT#: [id number] SERVICE 1032 REASON: abd distension , sepsis ORDERING PHYSICIAN: SAVANNA GRAF MD PROCEDURE: ABD PEL WO - CT ABDOMEN/PELVIS W/O CONTRAST Exam Type: CT ABDOMEN/PELVIS W/O CONTRAST Clinical Information: abd distension , sepsis Comparison: None CT Dose Index (CTDI): 10.20 mGy Dose Length Product (DLP): 530.00 total mGy-cm PROTOCOL: Routine noncontrast helical scanning of the abdomen and pelvis was performed at 5mm collimation. Findings: No evidence of nephro or ureterolithiasis is found. No hydronephrosis or ureteral dilatation is seen. Bilateral basal pneumonic infiltrates. Follow-up is advised. The stomach is distended. The spleen is unremarkable. It is not enlarged. The pancreas shows normal anatomy. It is not fatty replaced. It shows no lesions. The pancreatic duct is not dilated. The gallbladder is unremarkable. It shows no cholelithiasis. The gallbladder wall is normal in thickness. There is no pericholecystic fluid. The is no acute or chronic inflammation noted. The adrenal glands are unremarkable. There is no enlargement. No lesions are noted. The liver is unremarkable. It shows no focal masses. The appendix is unremarkable. It shows no evidence of inflammation. No appendicolith is seen. Dilatation of multiple small bowel loops is seen with distal transition point consistent with distal small bowel obstruction. The colon is unremarkable. The urinary bladder is unremarkable. There is no wall thickening to suggest tumor or inflammation. There are no intraluminal calculi. There are no diverticula. There is no evidence of chronic bladder outlet obstruction. There is no evidence of urinary bladder distention to suggest urinary retention. The other pelvic structures are unremarkable. Status post bilateral hip replacement with cephalad dislocation of the left femoral component. IMPRESSION: Small bowel obstruction. Bilateral basal pneumonia. This study was performed using dose reduction techniques to include automated exposure control and/or adjustment of the mA and/or kV according to patient size. DICTATED BY: NGOC ELIZABETH MD DATE: 05/23/24 1156 ELECTRONICALLY SIGNED BY: NGOC ELIZABTEH MD DATE: 05/23/24 1202 IMAGING REPORT Signed PATIENT: JOSÉ MIGUEL OSORIO MR#: [id number] : 1950 SEX: F AGE: 73 LOCATION: [facility] ORDER [id number] STATUS: ADM IN REPORT#: [id number] SERVICE 1532 REASON: CENTRAL LINE PLACEMENT ORDERING PHYSICIAN: SAVANNA GRAF MD PROCEDURE: CXR1VW - CHEST 1VW CHEST 1VW HISTORY: Right IJ line placement COMPARISON: 05/23/2024 FINDINGS: A frontal projection of the chest was obtained. No acute pulmonary infiltrates is seen. Prominent interstitial markings are seen. There may be a hiatal hernia. The heart is borderline enlarged. All the lines and tubes are again seen in place. No evidence of aortic calcification is seen. IMPRESSION: 1. No acute pulmonary infiltrate is seen. DICTATED BY: YOVANNY BUTTERFIELD MD DATE: 05/23/24 1609 ELECTRONICALLY SIGNED BY: YOVANNY BUTTERFIELD MD DATE: 05/23/24 1619 PLAN Pt received the 30ml/kg bolus of NS IV x 1 Then continue IV hydration CVC placement for pressors Start Levophed to maintain a MAP > 65 CBC CMP Chest x-ray Panculture Flu and COVID Trend lactic acid CRP Blood cultures Broad-spectrum antibiotic Consider hydrocortisone 50 mg q.6 hours IV for vasopressor dependent NEURO: Minimize central acting medications as possible. Fall Precautions. Well lighted room through the day and minimize interruptions through the night to prevent acute delirium. PULMONARY: Supplemental 02 as needed Titrate Fio2 to keep Spo2 > or = 90% DuoNebs and CPT as needed IS hourly while awake for pulmonary hygiene Out of bed to chair as tolerated VAP Bundle currently on o2 at 4 L CARDIOVASCULAR: Follow hemodynamics. Titrate vasopressor to keep MAP >65 or systolic blood pressure >95mmHg Drips: Levophed NS at 125ml/hr LINES: PIV CVC to RT IJ GI & NUTRITION: Continue nutritional support Aspirations precautions Prokinetic agents and laxatives as needed Consult general surgery for eval and recs KIDNEYS & ELECTROLYTES: Strict monitoring of intake and output Daily weights Avoid nephrotoxic agents Monitor electrolytes and replace as needed Goal urine output of 30mL/hr or 0.5mL/kg/hr ENDOCRINE: Maintain blood glucose between 100-180 at all times. Insulin sliding scale for blood glucose management INFECTIOUS DISEASE: Trend temperature. Clarke-culture if febrile. Micro: [ ] Influenza (A and B)- negative COVID-19 negative blood culture- urine culture- respiratory culture- Antibiotics: Meropenem and Zyvox HEMATOLOGY & COAGULATION: Monitor H&H. Keep Hgb > 7 Transfuse 1 unit of PRBC for Hgb < 7 Transfuse 1 pack of platelets of platelets < 20, 000 Watch for any signs and symptoms of bleeding SKIN: Pressure ulcer prevention per facility protocol Rehab: PT/OT Prophylaxis: GI: Protonix DVT: Heparin SQ Code Status: Full Resuscitation Disposition: ICU Other: Total patient care time exceeds 45 minutes excluding all procedures. Case was discussed and seen with my supervising physician. The above plan was formulated and agreed upon. DEJAN STOREY May 23, 2024 14:08
--- NOTE | 2024-05-23 14:27 | CONS ---
GENERAL SURGERY CONSULTATION NOTE DATE OF CONSULTATION: May 23, 2024 TIME OF CONSULTATION: 14:24 CONSULTING SERVICE: Elsa Soria MD REQUESTING PHYSICAIN: [ ] REASON FOR CONSULTATION: [ ] Abdominal pain SBO HISTORY OF PRESENT ILLNESS: [ ] 73-year-old lady well known to me who recently left the hospital after about two months admission for bowel obstruction She has been on in and had of the hospital for the past few months with the same problem -abdominal pain nausea and vomiting and bloatedness This slowly resolves PAST MEDICAL HISTORY: [ ]AST MEDICAL HISTORY: Hypertension, hypothyroidism, diabetes mellitus type 2 PAST SURGICAL HISTORY: History of hysterectomy, bilateral hip replacement. ] FAMILY HISTORY: [ No family history of hypertension or diabetes] SOCIAL HISTORY: [ ] No smoking No alcohol Current Medications Medications (Trade) Dose Ordered Sig/Dionisio Route Start Time Stop Time Status Last Admin Dose Admin Famotidine (Pepcid 20mg Vial) 20 mg Q48H IV 05/23/24 21:00 06/22/24 20:59 Heparin Sodium (Porcine) (HEParin 5,000 UNIT VIAL) 5,000 unit Q12H SQ 05/23/24 21:00 06/22/24 20:59 Linezolid 300 ml @ 150 mls/hr Q12H IV 05/23/24 11:30 06/02/24 11:29 05/23/24 11:55 150 MLS/HR Meropenem (Merrem) 1 gm Q24H IVPB 05/23/24 14:00 06/02/24 13:59 05/23/24 14:00 1 GM Pharmacy Profile Note (Lace Assessment) 1 each AD MISC 05/23/24 13:30 05/23/24 13:25 DC Sodium Chloride 1,000 ml @ 125 mls/hr Q8H IV 05/23/24 13:30 06/22/24 13:29 05/23/24 13:42 125 MLS/HR Allergies: Coded Allergies: butorphanol (Unverified Allergy, Intermediate, 04/06/24) Penicillins (Verified Allergy, Unknown, 07/17/16) levofloxacin (Unverified Allergy, Unknown, 04/08/24) pregabalin (Unverified Allergy, Unknown, 07/17/16) vancomycin (Verified Allergy, Unknown, 07/17/16) Uncoded Allergies: PCN (Allergy, Mild, 11/22/11) VANCO (Allergy, Unknown, 07/17/16) REVIEW OF SYSTEMS: MANAGER RESORT: [Denies headaches or blurring of vision.] RESP: [No cough, chest pain or SOB.] CVS: [No palpitaions.] GI: [abdominal pain with nausea and vomiting, bloatedness.] QUINTIN: [No dysuria or hematuria.] Musculoskeletal: [No swelling or joint pain.] BACK: [No pain or swelling.] All other systems are reviewed and essentially negative pertinent positives in HPI. PHYSICAL EXAMINATION: GENERAL: [Patient is lying comfortably in bed, not in any obvious distress.] Wasted HEAD: [Normal with no signs of head trauma.] EYES: [Not pale not jaundiced afebrile to touch.] ENT: [ Normal.] NECK: [Supple,no tenderness,no lymphadenopathy,no masses,no thyromegaly ,no bruits, no JVD.] LUNGS: [Clear breath sounds bilaterally. No wheezes, rales, or rhonchi.] HEART: [Regular rate and rhythm. Normal S1 and S2, without murmurs, rub or gallop.] ABD: [Bowel sounds present,soft, distended nontender : [Normal, no suprapubic tenderness.] LYMPH: [No lymphadenopathy noted.] EXT: [ Warm soft, non tender.] SKIN: [ No rashes or lesions.] NEURO: [ Awake Alert and oriented x3.] Vital Signs (last 8hr) Date Time Temp Pulse Resp B/P (MAP) Pulse Ox O2 Delivery O2 Flow Rate FiO2 05/23/24 12:53 98.8 120 20 108/72 91 Nasal Cannula* 4.0 N/A 05/23/24 11:36 98.8 127 20 95/61 96 Nasal Cannula* 4 36 05/23/24 10:30 138 20 88/60 92 Nasal Cannula* 4 36 05/23/24 09:14 98.8 137 26 157/96 91 Nasal Cannula 4.0 LABORATORY: [ ] Hematology Labs: Test 05/23/24 09:47 Range/Units White Blood Count 38.1 *H 4.8-10.8 K/uL Red Blood Count 3.94 L 4.00-5.50 MIL/uL Hemoglobin 11.1 L 12.0-16.0 g/dL Hematocrit 34.5 L 36-48 % Mean Corpuscular Volume 87.6 79-99 fL Mean Corpuscular Hemoglobin 28.2 27.0-33.0 pg Mean Corpuscular Hemoglobin Concent 32.2 32.0-36.0 g/dL Red Cell Distribution Width 15.9 H 11.0-15.5 % Platelet Count 447 H 130-400 K/uL Mean Platelet Volume 8.5 7.5-10.5 fL Immature Granulocyte % (Auto) 1.3 H 0-1 % Neutrophils (%) (Auto) 90.8 H 40.0-77.0 % Lymphocytes (%) (Auto) 2.0 L 21.0-51.0 % Monocytes (%) (Auto) 5.7 3.0-13.0 % Eosinophils (%) (Auto) 0.0 0.0-8.0 % Basophils (%) (Auto) 0.2 0.0-5.0 % Neutrophils # (Auto) 34.6 H 1.8-7.7 K/uL Lymphocytes # (Auto) 0.8 L 1.0-4.8 K/uL Monocytes # (Auto) 2.2 H 0.1-1.0 K/uL Eosinophils # (Auto) 0.01 0.00-0.70 K/uL Basophils # (Auto) 0.07 0.00-0.20 K/uL Absolute Immature Granulocyte (auto 0.48 0-1 K/uL Segmented Neutrophils % 82 H 40-70 % Band Neutrophils % 9 H 0-2 % Lymphocytes % (Manual) 3 L 22-44 % Monocytes % (Manual) 6 2-9 % Nucleated Red Blood Cells 0.0 0.0-0.19 % Differential Comment MANUAL DIFFERENTIAL White Cell Morphology Comment CONSISTENT W/DIFF Platelet Morphology Comment SLIGHT INC Red Blood Cell Morphology See comments Chemistry Labs: Test 05/23/24 13:14 05/23/24 09:47 Range/Units Lactic Acid Level 1.6 0.8-2.5 mmol/L Sodium Level 128 L 136-145 mmol/L Potassium Level 4.6 3.5-5.1 mmol/L Chloride Level 86 *L 101-111 mmol/L Carbon Dioxide Level 30 21-32 mmol/L Blood Urea Nitrogen 67 H 7-18 mg/dL Creatinine 4.7 H 0.5-1.0 mg/dL Glomerular Filtration Rate Calc 9 >90 mL/min Random Glucose 130 H 70-105 mg/dL Total Calcium 10.5 H 8.5-10.1 mg/dL Total Creatine Kinase 574 #*H 21-232 U/L Troponin I High Sensitivity 27 4-50 ng/L Coagulation Labs: Test 05/23/24 13:14 Range/Units Prothrombin Time 11.5 9.6-11.6 SEC Prothromb Time International Ratio 1.03 0.85-1.15 Activated Partial Thromboplast Time 29.5 26.3-35.5 SEC DIAGNOSTICS / RADIOLOGY: [Copy/Paste Echos/Imaging Report here] ASSESSMENT: [] Abdominal pain SBO Partial and recurrent Chronic PLAN: [] NPO/IVF/IV ANTIOBIOTICS Bowel rest OR for exploration ELSA SORIA MD May 23, 2024 14:27
--- NOTE | 2024-05-23 14:29 | HMCIMG ---
Exam Type: ABD 1VW Clinical Information: NG tube insertion, Please verify placement Comparison: None Findings and impression: Nasogastric tube tip in the distal esophagus. Consider advancing.
--- NOTE | 2024-05-23 14:46 | NUR ---
ED CONTACTED AND TOLD PT STATUS, STATED HE WOULD COME WHEN POSSIBLE
--- NOTE | 2024-05-23 14:53 | NUR ---
ADVANCED NG TUBE [address] FRAIRE
--- NOTE | 2024-05-23 15:20 | NUR ---
NURSE NOT READY FOR REPORT
--- NOTE | 2024-05-23 15:23 | NUR ---
CENTRAL LINE PLACED PER HAND STONER DEJAN, EMERGENT
[2024-05-23] MEDS: NOREPINEPHRIN 4MG/NS 250ML 250 ML IV SCH (15:35)
--- NOTE | 2024-05-23 15:46 | NUR ---
LEVOPHED STARTED BP 111/77
[2024-05-23] MEDS: NOREPINEPHRIN 4MG/NS 250ML 250 ML IV ONE (15:47)
--- NOTE | 2024-05-23 15:49 | NUR ---
PER NURSE DONAHUE, REPORT CALLED BUT ROOM IS NOT CLEAN, NURSE WILL CALL BACK WHEN ROOM READY, HOUSE SUP AWARE
--- NOTE | 2024-05-23 15:51 | PRN ---
[facility] Procedure Note [facility] Pul[facility] and Critical Care Service Procedure Note DATE OF PROCEDURE: 05/23/24 1500 INDICTAION: Septic shock Procedures performed: -Central line placement, right internal jugular vein -Intraoperative ultrasound guidance with permanent recording of images in chart. Pre-procedure checklist: -Informed consent obtained. -Time-out performed per hospital policy. Medications: -Lidocaine 1% 5 ml Description of procedure: Hand hygiene was performed. Cap, mask, sterile gown, and sterile gloves were donned. Area was prepped with 2% chlorhexidine and a large sterile drape was applied with sterile field maintained. 5 ml of Lidocaine injected into surrounding tissue. Using ultrasound probe with sterile sleeve in place, procedure site was assessed and the vein was entered with direct ultrasound carmenza dance while maintaining strict sterile technique. Triple lumen catheter was inserted with Seldinger technique. Venous blood was aspirated freely from all 3 ports and flushed with 10 ml of 0.9% saline each. Line secured at the hub and sutured in place. Biopatch placed in the correct position and clear sterile dressing was applied. A post-procedure chest x-ray was ordered. Procedure was performed under direct supervision of Dr. Kolby Dias MD Time spent on this procedure is independent of the time spent planning and coordinating the patient's care. DEJAN STOREY May 23, 2024 15:51
[2024-05-23] MEDS: hydroMORPHone 0.5 MG SYG (0.5MG/0.5ML) IVP PRN (15:58)
--- NOTE | 2024-05-23 16:12 | NUR ---
PER ICU-212 IS NOW READY
--- NOTE | 2024-05-23 16:19 | HMCIMG ---
CHEST 1VW HISTORY: Right IJ line placement COMPARISON: 05/23/2024 FINDINGS: A frontal projection of the chest was obtained. No acute pulmonary infiltrates is seen. Prominent interstitial markings are seen. There may be a hiatal hernia. The heart is borderline enlarged. All the lines and tubes are again seen in place. No evidence of aortic calcification is seen. IMPRESSION: 1. No acute pulmonary infiltrate is seen.
[2024-05-23 17:08] LABS: BASOPHILS # (AUTO) 0.06 K/uL (0.00-0.20); BASOPHILS % (AUTO) 0.2 % (0.0-5.0); EOSINOPHILS # (AUTO) 0.01 K/uL (0.00-0.70); HEMATOCRIT 31.4 % (36-48); IMMATURE GRANULOCYTE ABSOLUTE 0.17 K/uL (0-1); LYMPHOCYTES # (AUTO) 1.2 K/uL (1.0-4.8); LYMPHOCYTES % (AUTO) 3.9 % (21.0-51.0); MEAN CORPUSCULAR HEMOGLOBIN 28.3 pg (27.0-33.0); MEAN CORPUSCULAR HGB CONC 32.2 g/dL (32.0-36.0); MONOCYTES # (AUTO) 2.2 K/uL (0.1-1.0); MONOCYTES % (AUTO) 7.1 % (3.0-13.0); NEUTROPHILS # (AUTO) 26.9 K/uL (1.8-7.7); NEUTROPHILS % (AUTO) 88.2 % (40.0-77.0); PLATELET COUNT (AUTO) 408 K/uL (130-400); RED BLOOD CELL COUNT(AUTO) 3.57 MIL/uL (4.00-5.50); RED CELL DISTRIBUTION WIDTH 15.9 % (11.0-15.5)
[2024-05-23 17:14] LABS: WHITE BLOOD COUNT (AUTO) 30.5 K/uL (4.8-10.8)
[2024-05-23 17:48] LABS: ALANINE AMINOTRANSFERASE 18 U/L (12-78); ALBUMIN 2.1 g/dL (3.5-5.0); AMMONIA < 10 umol/L (11-32); ASPARTATE AMINOTRANSFERASE 35 U/L (10-37); BILIRUBIN,TOTAL 0.5 mg/dL (0.2-1.0); CARBON DIOXIDE 30 mmol/L (21-32); CHLORIDE 91 mmol/L (101-111); CREATININE 4.3 mg/dL (0.5-1.0); GLOMERULAR FILTR. RATE CALC 10 mL/min (>90); GLUCOSE,RANDOM 138 mg/dL (70-105); PHOSPHORUS 5.6 mg/dL (2.5-4.9); POTASSIUM 4.3 mmol/L (3.5-5.1); SODIUM SERUM 131 mmol/L (136-145); TOTAL PROTEIN, SERUM 6.2 g/dL (6.0-8.3); UREA NITROGEN, BLOOD 68 mg/dL (7-18)
--- NOTE | 2024-05-23 17:53 | EKG ---
[facility] Test Date: 2024-05-23 Test Time: 09:07:30 Pat Name: JOSÉ MIGUEL OSROIO Department: [facility] Room: 216 Gender: F Tooth Clerk: [id number] : 1950 Requested By: SAVANNA GRAF Order Number: [id number] Reading MD: Teja Marte Measurements Intervals Stanton Rate: 137 P: 137 VT: 138 QRS: 119 QRSD: 82 T: 161 QT: 275 QTc: 416 Interpretive Statements Sinus tachycardia Probable left atrial enlargement Low voltage, extremity leads Nonspecific T abnormalities, lateral leads Compared to ECG 04/06/2024 12:13:28 Low QRS voltage now present T-wave abnormality now present Sinus tachycardia no longer present Early repolarization no longer present Electronically Signed On 05-25-2024 18:17:11 GEOTHERMAL TECHNICIAN by Teja Marte Please click the below link to view image of tracing.
[2024-05-23] MEDS ORDERED: FAMOTIDINE 20MG VIAL IV SCH (21:00)
[2024-05-23] MEDS: HEParin 5,000 UNIT VIAL SQ SCH (22:01)
[2024-05-24] VITALS (92 sets, daily range): BP systolic 50–186; BP diastolic 26–115; PULSE 63–148; RESP 11–82; TEMP 97.6–98.6; O2SAT 96–100
[2024-05-24] MEDS: hydroMORPHone 0.5 MG SYG (0.5MG/0.5ML) IVP ONE (01:34)
[2024-05-24] MEDS: hydroMORPHone 0.5 MG SYG (0.5MG/0.5ML) IVP PRN (03:54)
[2024-05-24] MEDS ORDERED: NOREPINEPHRINE 16MG/NS 250ML PREMIX IV SCH (07:30)
[2024-05-24] MEDS: NOREPINEPHRINE 16MG/NS 250ML 250 ML IV ONE (07:47)
[2024-05-24 08:00] LABS: BASOPHILS # (AUTO) 0.02 K/uL (0.00-0.20); BASOPHILS % (AUTO) 0.1 % (0.0-5.0); HEMATOCRIT 26.6 % (36-48); LYMPHOCYTES # (AUTO) 0.6 K/uL (1.0-4.8); LYMPHOCYTES % (AUTO) 2.7 % (21.0-51.0); MEAN CORPUSCULAR HEMOGLOBIN 28.3 pg (27.0-33.0); MEAN CORPUSCULAR VOLUME 88.7 fL (79-99); MONOCYTES # (AUTO) 1.2 K/uL (0.1-1.0); MONOCYTES % (AUTO) 5.7 % (3.0-13.0); PLATELET COUNT (AUTO) 353 K/uL (130-400); RED CELL DISTRIBUTION WIDTH 15.8 % (11.0-15.5); WHITE BLOOD COUNT (AUTO) 20.9 K/uL (4.8-10.8)
[2024-05-24] MEDS ORDERED: NOREPINEPHRINE 16MG/NS 250ML 250 ML IV SCH (08:00)
[2024-05-24] MEDS: PANTOPrazole 40 MG/VIAL IVP SCH (08:09)
[2024-05-24 08:11] LABS: ALBUMIN 1.6 g/dL (3.5-5.0); BILIRUBIN,TOTAL 0.4 mg/dL (0.2-1.0); MAGNESIUM 1.6 mg/dL (1.80-2.40); PHOSPHORUS 3.9 mg/dL (2.5-4.9); POTASSIUM 3.5 mmol/L (3.5-5.1); TOTAL PROTEIN, SERUM 4.9 g/dL (6.0-8.3)
[2024-05-24] MEDS: MAGNESIUM 2GM PREMIX 50ML 50 ML IV PRN (08:58)
[2024-05-24] MEDS: 0.9% NACL 500ML IV.SOLN 500 ML IV SCH (09:54)
--- NOTE | 2024-05-24 10:17 | PN ---
[facility] PROGRESS NOTE Date of Service: May 24, 2024 Time of Service: 10:13 SUBJECTIVE: [ ] This 73-year-old female with past medical history of hypertension hypothyroidism, diabetes mellitus type, history of chronic left hip pain with hip dislocation, anemia presented to the hospital secondary to abdominal pain, nausea, vomiting. Labs were notable for white count of 38.1, hemoglobin was 11.5, platelet count is 447 K, sodium is 128, potassium was 4.6, chloride is 86, creatinine is 4.7, BUN is 67, CK is 574, calcium is 10.5, glucose is 130, lactic acid is two point, troponin is negative x1. Patient underwent CT abdomen pelvis which showed small bowel obstruction. Concern for possible bilateral basal pneumonia. Patient admitted to the intensive care unit for further evaluation and medical management. Patient is seen and examined bedside, she is awake, following commands, NPO, NG tube connected to intermittent suction, discussed with the RN, 1.6 L output since last night, BP 113/65, heart rate 108, saturating 96% 2 L nasal cannula. Remains on pressor support with Levophed, getting broad-spectrum IV antibiotics during my visit. WBC trending down 20 point, hemoglobin 8.5, 26.6. BUN 62, creatinine 3.0, magnesium 1.6. Chest x-ray no acute pulmonary infiltrate seen. Follow repeat KUB. Monitor renal function in a.m. awaiting surgical recommendations to see if the patient will be taken to the operating room for exploration. REVIEW OF SYSTEMS CONSTITUTIONAL: Denies fevers, chills, or night sweats. No unintentional weight loss reported. NEUROLOGICAL: Denies headache, amaurosis fugax, motor weakness, sensory deficit, vertigo/spinning sensation, gait abnormalities, or tremors. ENT: No hearing loss, otalgia, otorrhea, rhinitis, rhinorrhea, hoarseness, or sore throat. CARDIOVASCULAR: Denies any exertional angina, dyspnea on exertion, orthopnea, paroxysmal nocturnal dyspnea, palpitations, life-threatening arrhythmias, claudication. PULMONARY: Denies any shortness of breath, cough, phlegm/sputum, hemoptysis, pleuritic chest pain. GASTROINTESTINAL: Positive for abdominal pain, nausea, vomiting. Denied any melena, hematochezia hematemesis. GENITOURINARY: Denies frequency, urgency, nocturia, hematuria or incontinence (Storage/Irritative symptoms.) Low urinary stream, straining to void, urinary intermittency or hesitancy, splitting of the voiding stream, terminal dribbling. ENDOCRINOLOGIC: Denies polyuria, polydipsia, polyphagia or heat/cold intolerances. HEMATOLOGIC: Denies thrombophilia/previous clots, or coagulopathy/bleeding disorders. ONCOLOGIC: Denies personal history of malignancy. DERMATOLOGIC: Denies rashes or pruritus. PSYCHIATRIC: Denies any suicidal or homicidal ideation. Denies hallucinations. PHYSICAL EXAM GENERAL APPEARANCE: The patient is awake, alert, and oriented, in no acute cardiopulmonary distress. Appears frail NEUROLOGICAL: Cranial nerves II-XII grossly intact. Motor is 5/5 in bilateral upper and lower extremities proximal to distal. No sensory deficits. HEENT: Face is symmetric. Pupils are equal and reactive. Extraocular movements are intact. NECK: Supple. No JVD. No thyromegaly. No submental, submandibular, pre- /postauricular, occipital or supraclavicular lymphadenopathy. CHEST: Normal chest expansion. No Telemetry. LUNGS: Absence of any rales, rhonchi or any wheezing. CARDIOVASCULAR: Regular. S1 and S2 normal. No appreciable rubs, murmurs or gallops. ABDOMEN: Mildly distended, mild diffuse tenderness. : Deferred. No Hearn. EXTREMITIES: Non-edematous and not cyanotic. No clubbing. Good capillary refill. SKIN: No skin breakdown. Vital Signs (last 8hr) Date Time Temp Pulse Resp B/P (MAP) Pulse Ox O2 Delivery O2 Flow Rate FiO2 05/24/24 10:00 108 22 113/65 (81) 96 05/24/24 09:31 113 20 116/56 (76) 96 05/24/24 09:30 111 20 121/75 (90) 97 05/24/24 09:15 116 25 117/73 (88) 98 05/24/24 09:00 107 19 136/75 (95) 98 05/24/24 08:45 114 21 141/75 (97) 98 05/24/24 08:30 116 22 116/89 (98) 97 05/24/24 08:15 124 21 138/98 (111) 96 05/24/24 08:00 110 21 123/87 (99) 97 28 05/24/24 08:00 98.2 05/24/24 07:47 136/72 05/24/24 07:45 107 82 163/98 (119) 98 05/24/24 07:30 115 23 136/72 (93) 98 05/24/24 07:02 115 22 119/44 (69) 95 05/24/24 07:00 115 22 119/44 (69) 95 36 05/24/24 06:45 117 23 144/72 (96) 97 36 05/24/24 06:30 116 22 142/78 (99) 97 36 05/24/24 06:15 117 23 106/68 (81) 98 36 05/24/24 06:00 122 23 97 36 05/24/24 05:45 122 23 122/89 (100) 97 36 05/24/24 05:30 122 22 91/66 (74) 97 36 05/24/24 05:15 123 20 50/26 (34) 94 36 05/24/24 05:00 121 15 84/46 (59) 96 36 05/24/24 04:45 125 18 91/57 (68) 95 36 05/24/24 04:30 123 21 98/52 (67) 95 36 05/24/24 04:15 98.6 125 11 108/61 (77) 94 36 05/24/24 04:00 96 Nasal Cannula* 5 40 05/24/24 04:00 124 21 80/68 (72) 95 36 05/24/24 03:45 124 21 100/66 (77) 96 36 05/24/24 03:30 129 27 93/52 (66) 95 36 05/24/24 03:15 132 22 101/53 (69) 96 36 05/24/24 03:00 133 21 111/51 (71) 96 36 05/24/24 02:45 136 23 113/63 (80) 97 36 05/24/24 02:30 136 25 112/69 (83) 97 36 05/24/24 02:15 139 17 90/49 (63) 94 36 LABS: Laboratory: Test 05/24/24 07:43 05/23/24 16:57 05/23/24 13:14 05/23/24 11:22 Range/Units White Blood Count 20.9 #H 4.8-10.8 K/uL Red Blood Count 3.00 L 4.00-5.50 MIL/uL Hemoglobin 8.5 L 12.0-16.0 g/dL Hematocrit 26.6 L 36-48 % Mean Corpuscular Volume 88.7 79-99 fL Mean Corpuscular Hemoglobin 28.3 27.0-33.0 pg Mean Corpuscular Hemoglobin Concent 32.0 32.0-36.0 g/dL Red Cell Distribution Width 15.8 H 11.0-15.5 % Platelet Count 353 130-400 K/uL Mean Platelet Volume 8.5 7.5-10.5 fL Immature Granulocyte % (Auto) 0.5 0-1 % Neutrophils (%) (Auto) 91.0 H 40.0-77.0 % Lymphocytes (%) (Auto) 2.7 L 21.0-51.0 % Monocytes (%) (Auto) 5.7 3.0-13.0 % Eosinophils (%) (Auto) 0.0 0.0-8.0 % Basophils (%) (Auto) 0.1 0.0-5.0 % Neutrophils # (Auto) 19.0 H 1.8-7.7 K/uL Lymphocytes # (Auto) 0.6 L 1.0-4.8 K/uL Monocytes # (Auto) 1.2 H 0.1-1.0 K/uL Eosinophils # (Auto) 0.00 0.00-0.70 K/uL Basophils # (Auto) 0.02 0.00-0.20 K/uL Absolute Immature Granulocyte (auto 0.10 0-1 K/uL Nucleated Red Blood Cells 0.0 0.0-0.19 % Sodium Level 138 136-145 mmol/L Potassium Level 3.5 3.5-5.1 mmol/L Chloride Level 103 101-111 mmol/L Carbon Dioxide Level 27 21-32 mmol/L Blood Urea Nitrogen 62 H 7-18 mg/dL Creatinine 3.0 H 0.5-1.0 mg/dL Glomerular Filtration Rate Calc 16 >90 mL/min Random Glucose 89 70-105 mg/dL Total Calcium 8.6 8.5-10.1 mg/dL Phosphorus Level 3.9 2.5-4.9 mg/dL Magnesium Level 1.60 L 1.80-2.40 mg/dL Total Bilirubin 0.4 0.2-1.0 mg/dL Aspartate Amino Transf (AST/SGOT) 27 10-37 U/L Alanine Aminotransferase (ALT/SGPT) 12 # 12-78 U/L Alkaline Phosphatase 106 50-136 U/L Total Protein 4.9 #L 6.0-8.3 g/dL Albumin 1.6 #L 3.5-5.0 g/dL Whole Blood Ketones Quantitative 0.6 0.0-0.6 mmol/L Lactic Acid Level 1.5 0.8-2.5 mmol/L Ammonia < 10 L 11-32 umol/L Procalcitonin 0.99 H 0.05-0.5 ng/mL Prothrombin Time 11.5 9.6-11.6 SEC Prothromb Time International Ratio 1.03 0.85-1.15 Activated Partial Thromboplast Time 29.5 26.3-35.5 SEC Urine Color BROWN H YELLOW Urine Appearance TURBID CLEAR Urine pH 5.0 5.0-8.0 Urine Specific [place] 1.022 1.001-1.031 Urine Protein 70 H NEGATIVE mg/dL Urine Glucose (UA) NEGATIVE NEGATIVE mg/dL Urine Ketones NEGATIVE NEGATIVE mg/dL Urine Occult Blood SMALL H NEGATIVE Urine Nitrate NEGATIVE NEGATIVE Urine Bilirubin NEGATIVE NEGATIVE mg/dL Urine Urobilinogen 0.2 0.2-1.0 mg/dL Urine Leukocyte Esterase 500 H NEGATIVE Marley/uL Urine RBC >100 H 0-1 /HPF Urine WBC TNTC H 0-1 /HPF Urine Squamous Epithelial Cells MOD 0-2 /HPF Urine Bacteria MOD None Seen /HPF Test 05/23/24 11:15 05/23/24 09:47 Range/Units Influenza Type A Antigen Negative For Type A NEGATIVE Influenza Type B Antigen Negative For Type B NEGATIVE SARS-CoV-2, RNA, NAAT NEGATIVE SARS CoV-2 NEGATIVE Segmented Neutrophils % 82 H 40-70 % Band Neutrophils % 9 H 0-2 % Lymphocytes % (Manual) 3 L 22-44 % Monocytes % (Manual) 6 2-9 % Differential Comment MANUAL DIFFERENTIAL White Cell Morphology Comment CONSISTENT W/DIFF Platelet Morphology Comment SLIGHT INC Red Blood Cell Morphology See comments Total Creatine Kinase 574 #*H 21-232 U/L Troponin I High Sensitivity 27 4-50 ng/L Current Medications Medications (Trade) Dose Ordered Sig/Dionisio Route PRN Reason Start Time Stop Time Status Last Admin Dose Admin Famotidine (Pepcid 20mg Vial) 20 mg Q48H IV 05/23/24 21:00 05/23/24 19:37 DC Heparin Sodium (Porcine) (HEParin 5,000 UNIT VIAL) 5,000 unit Q12H SQ 05/23/24 21:00 06/22/24 20:59 05/24/24 08:33 5,000 UNIT Hydromorphone HCl (DiLAUDid 0.5MG INJ) 0.2 mg Q6H PRN IVP SEVERE PAIN (7-10) 05/23/24 13:30 05/24/24 01:23 DC 05/24/24 00:08 0.2 MG Hydromorphone HCl (DiLAUDid 0.5MG INJ) 0.3 mg Q4HPRN PRN IVP SEVERE PAIN (7-10) 05/24/24 01:30 05/28/24 13:29 05/24/24 08:09 0.3 MG Hydromorphone HCl (DiLAUDid 0.5MG INJ) 0.5 mg Q6H PRN IVP SEVERE PAIN (7-10) 05/23/24 13:30 05/23/24 13:18 DC Linezolid 300 ml @ 150 mls/hr Q12H IV 05/23/24 11:30 06/02/24 11:29 05/24/24 00:09 150 MLS/HR Magnesium Sulfate 50 ml @ 0 mls/hr PROTOCOL PRN IV ad 05/23/24 17:00 06/22/24 16:59 05/24/24 08:58 25 MLS/HR Meropenem (Merrem) 1 gm Q24H IVPB 05/23/24 14:00 06/02/24 13:59 05/23/24 14:00 1 GM Norepinephrine 250 ml @ 0 mls/hr PROTOCOL IV 05/23/24 16:00 05/24/24 07:36 DC 05/24/24 01:40 51 MLS/HR Norepinephrine Bitartrate 250 ml @ 0 mls/hr PROTOCOL IV 05/24/24 08:00 06/23/24 07:59 Norepinephrine Bitartrate (Norepineph 16 Mg/250ml NS Premix) Protocol PROTOCOL IV 05/24/24 07:30 05/24/24 07:39 DC Pantoprazole Sodium (PROTonix 40MG INJ) 40 mg DAILY IVP 05/24/24 09:00 06/23/24 08:59 05/24/24 08:09 40 MG Pharmacy Profile Note (Lace Assessment) 1 each AD MISC 05/23/24 13:30 05/23/24 13:25 DC Sodium Chloride 500 ml @ 0 mls/hr Q0M IV 05/24/24 10:00 06/23/24 09:59 05/24/24 09:54 1,200 MLS/HR Sodium Chloride 1,000 ml @ 125 mls/hr Q8H IV 05/23/24 13:30 06/22/24 13:29 05/24/24 05:36 125 MLS/HR DIAGNOSTICS / RADIOLOGY: [ ] Exam Type: ABD 1VW Clinical Information: NG tube insertion, Please verify placement Comparison: None Findings and impression: Nasogastric tube tip in the distal esophagus. Consider advancing. ASSESSMENT: Severe sepsis POA Hypotension improved POA Small bowel obstruction POA UTI POA Dehydration Acute kidney injury POA Hyponatremia Mild CK elevation Hyperchloremia History of chronic opioid use Frailty Debility History of chronic left hip dislocation POA PLAN: - patient remains admitted to the ICU -in reference to small-bowel obstruction. The patient will continue on NG tube on low intermittent wall suction. Continue The patient on NS for hydration. General surgery has been consulted. Continue to follow input and recommendation. Patient initially NPO for now -in reference to severe sepsis. Continue to follow results of septic workup, Patient to continue on Zyvox and meropenem. Infectious Disease consultation requested, follow input and recommendation -reference to acute kidney injury. Continue supportive care with IV fluids Patient noted to be on losartan and hydrochlorothiazide continue to hold. Nephrology consultation requested, follow input recommendation -critical care input noted and appreciated -patient will be on Dilaudid for pain control -further orders per hospitalization course. NEURO: Minimize central acting medications as possible. Fall Precautions. Well lighted room through the day and minimize interruptions through the night to prevent acute delirium. PULMONARY: Supplemental 02 as needed BiPAP as necessary, for respiratory distress Titrate Fio2 to keep Spo2 > or = 90% DuoNebs and CPT as needed IS hourly while awake for pulmonary hygiene prn Out of bed to chair as tolerated Maintain aspiration precautions at all times CARDIOVASCULAR: Follow hemodynamics. Vital signs per facility protocol GI & NUTRITION: Continue nutritional support Aspirations precautions Prokinetic agents and laxatives as needed KIDNEYS & ELECTROLYTES: Strict monitoring of intake and output Daily weights Avoid nephrotoxic agents Monitor electrolytes and replace as needed Goal urine output of 30mL/hr or 0.5mL/kg/hr Medications to be dosed according to renal function. Avoid contrast if possible ENDOCRINE: Maintain blood glucose between 100-180 at all times. Insulin sliding scale for blood glucose management Hypoglycemia and hyperglycemia protocol in place INFECTIOUS DISEASE: Trend temperature, WBC and procalcitonin level Follow cultures, deescalate antibiotics as soon as possible. Panculture if new onset fever HEMATOLOGY & COAGULATION: Monitor H&H. Keep Hgb > 7 Transfuse 1 unit of PRBC for Hgb < 7 Transfuse 1 pack of platelets of platelets < 20, 000 Watch for any signs and symptoms of bleeding SKIN: Pressure ulcer prevention per facility protocol Specialty mattress as needed PRN: MEDICATIONS Tylenol 650 mg po every 4 hrs for fever zofran 4 mg IV every 6 hrs for n/v Hydralazine 5 mg IV every 4 hrs systolic pressure > 160 bowel regiment: lactulose 20 gm PO BID PRN constipation Supportive measures: DVT ppx, GI ppx Disposition: Pending improvement in clinical condition All questions answered time spent: > 35 min MARTIN GALINDO MD May 24, 2024 10:17
--- NOTE | 2024-05-24 12:33 | CONS ---
REFERRING PHYSICIAN: ____ REASON FOR CONSULTATION: Renal failure. HISTORY OF PRESENT ILLNESS: A 73-year-old female with a history of diabetes mellitus and hypertension. The patient presented to the hospital with increasing nausea, vomiting, abdominal pain. The patient was found to have a small bowel obstruction. Initially NG tube was placed. The patient was just recently discharged from the hospital for similar issues. In the emergency room, the patient was found to have elevated BUN and creatinine and the patient was started on aggressive IV hydration. The patient also with significant hyponatremia. Creatinine has improved overnight. Upon discharge, the patient's renal function had been quite stable. The patient has had very similar admissions in the past. The patient is being seen in consultation for all the above. PAST MEDICAL HISTORY: Diabetes mellitus, hypertension, thyroid disease, history of chronic pain. PAST SURGICAL HISTORY: Hysterectomy, hip surgery. SOCIAL HISTORY: She had been at the [facility]. There is no active tobacco use. FAMILY HISTORY: There is no renal disease in the family. ALLERGIES: SHE HAS AN ALLERGY TO PENICILLIN AND VANCOMYCIN. MEDICATIONS: All noted. REVIEW OF SYSTEMS: She is quite confused, really unable to give any form of systems at this time. PHYSICAL EXAMINATION: VITAL SIGNS: Blood pressure 119/51, pulse in the 90s. GENERAL: She is a chronically ill, debilitated female, lying in bed on the medical floor. HEENT: Head is atraumatic. Pupils equal, roving to light. Oropharynx is without exudate. Nares clear. NECK: There is no JVP. There is no thyromegaly, no mass. CARDIOVASCULAR: Regular. There is no S3, S4 gallop. LUNGS: Coarse with equal thoracic movement. ABDOMEN: Soft, nondistended, nontender. EXTREMITIES: Reveal no clubbing, no cyanosis. NEUROLOGICAL: She is quite confused and somnolent. She is nonfocal. SKIN: Reveals no rash or nodules. BACK: No CVA tenderness or back deformities. LABORATORY DATA: Sodium 138, potassium 3.5, BUN 62, creatinine is 3. Hemoglobin 8.5, hematocrit 36, white cell count 20,000. Urinalysis is noted. IMPRESSION: * Acute renal failure. * Volume depletion. * Electrolyte abnormalities. * Anemia. * Debilitation. PLAN: The patient was started on aggressive IV hydration. The patient's creatinine has improved overnight. We will send off urine for electrolytes for completeness. The patient's renal function had been fairly stable upon discharge. On a previous admission. The patient does have significant anemia. We will check iron levels in the a.m. for completeness. We will continue to follow the patient closely. No need for any form of renal replacement therapy. All labs will be repeated in the morning. TID: [id number] RECEIPT: [id number]
[2024-05-24] MEDS: CLINIMIX-E 5%AA /D15%W 2000ML 2,000 ML IV ONE (13:29)
[2024-05-24] MEDS: hydroCORTisone SOD SUCCINATE 100 MG/2 ML VIAL IV SCH (13:38)
[2024-05-24] MEDS: BALSAM PERU TP SCH (20:09)
[2024-05-24] MEDS: CASTOR OIL TP SCH (20:09)
--- NOTE | 2024-05-24 21:33 | PN ---
[facility] PROGRESS NOTE Date Patient Seen: May 24, 2024 Time of Visit: 11:15 Supervising Physician: Kolby Dias MD Primary Care Physician: Chapincito Guardado MD Outpatient Specialists: Inpatient Consults: LEATHA Farrell (Critical care team) , Dr Augustus Ferguson, Dr Eduardo PROBLEM LIST: Acute hypoxic respiratory failure, POA septic shock POA , no responsive to IVF, Requiring Levophed Suspected CAP, POA Small bowel obstruction POA Acute complicated cystitis, POA Hematuria POA Severe Dehydration Acute kidney injury POA Electrolyte derangement POA ( Hyponatremia, Hyperchloremia) History of chronic opioid use Frailty Debility History of chronic left hip dislocation, Opiate induced Illeus, Hypothyroidism, multiple recent hospitalizations with long hospital stay, opiate overdose w/ morphine, and fibromyalgia, Osteoarthritis , spinal cord stimulation (SCS) INTERVAL HISTORY: Patient is awake alert and oriented x3. She is hemodynamically improving with Levophed at 0.09mcg/kg/min. Heart rate 110 sinus tachycardia with a blood pressure of 123/87 saturating 97% with 2 L via nasal cannula and afebrile. Patient's urine output today 850 mL with a balance of positive 393 from NG tube there was 1 L output yesterday of dark green drainage. As per patient Dr. Valenzuela has offered to do exploratory surgery due to recurrent problem. She reports she was in agreement with surgery. She reports that she is tired of coming in for bowel obstruction because when she's back in the hospital she does not get strong pain medication such as dilaudid due to low blood pressures. She reports that she is frustrated with recurrent situation but not ready for comfort measures and that she wants to give herself a chance first with possible surgery if the surgeon thinks it's indicated. WBCs trending down today 20.9 H&H is 8.5/26.6 stable platelet count is 353 K neutrophils 91. On chemistries sodium 138 potassium of 3.3 BUN of 62 with a creatinine of 3.0 improving with a GFR of 16 which is also improving from admission. Random glucose 89 mg/dL. Procalcitonin 0.99 total protein 4.9 albumin 1.6. We will start TPN for nutrit ion for now. No images for today. REVIEW OF SYSTEMS: General:reports generalized malaise and gbw Neurological: No fainting episodes or seizures. HEENT: No nasal congestion or nasal secretion. Respiratory: No cough, shortness of breath, or wheezing Cardiac: No chest pain or palpitations. Gastrointestinal:yes for nausea and much output to ng tube . Genitourinary: No dysuria hematuria. Skin: No rashes or lesions. Hematological: No bruises or bleeding. Musculoskeletal: reports chronic pain to hands and fingers, back and hip Psychiatric: No depression or panic attacks. PHYSICAL EXAM: GENERAL: Mental status improving weak, awake oriented x 3 GCS 15 HEENT: Sclera non icteric, moist mucosa NECK: Supple, no JVD, trachea midline LUNGS: Clear breath sounds bilaterally. No wheezes HEART: Regular rate and rhythm. Normal S1 and S2, without murmurs ABD: abdomen distended but soft non tender, Bowel sounds hypoactive EXT: No clubbing cyanosis or edema NEURO: AAOx3 no focal weakness Vital Signs (last 8hr) Date Time Temp Pulse Resp B/P (MAP) Pulse Ox O2 Delivery O2 Flow Rate FiO2 05/24/24 18:00 91 134/82 (99) 97 05/24/24 17:45 80 13 110/57 (74) 98 05/24/24 17:30 81 13 109/64 (79) 99 05/24/24 17:15 81 17 112/65 (81) 98 28 05/24/24 17:00 86 20 112/64 (80) 96 05/24/24 16:45 87 17 114/64 (81) 98 05/24/24 16:30 90 19 114/68 (83) 98 05/24/24 16:15 89 16 120/65 (83) 97 05/24/24 16:00 97 Nasal Cannula* 2 28 05/24/24 16:00 98.2 05/24/24 16:00 86 16 117/70 (86) 98 28 05/24/24 15:45 85 18 130/71 (90) 98 05/24/24 15:30 90 17 121/66 (84) 98 05/24/24 15:15 86 22 122/62 (82) 98 05/24/24 15:00 96 22 124/68 (86) 97 05/24/24 14:45 92 19 116/62 (80) 97 05/24/24 14:30 91 20 116/60 (78) 97 05/24/24 14:15 92 27 125/53 (77) 97 05/24/24 14:00 93 20 123/63 (83) 96 05/24/24 13:45 98 17 125/63 (83) 96 05/24/24 13:30 95 19 112/70 (84) 96 LABS: Hematology Labs: Test 05/24/24 07:43 05/23/24 09:47 Range/Units White Blood Count 20.9 #H 4.8-10.8 K/uL Red Blood Count 3.00 L 4.00-5.50 MIL/uL Hemoglobin 8.5 L 12.0-16.0 g/dL Hematocrit 26.6 L 36-48 % Mean Corpuscular Volume 88.7 79-99 fL Mean Corpuscular Hemoglobin 28.3 27.0-33.0 pg Mean Corpuscular Hemoglobin Concent 32.0 32.0-36.0 g/dL Red Cell Distribution Width 15.8 H 11.0-15.5 % Platelet Count 353 130-400 K/uL Mean Platelet Volume 8.5 7.5-10.5 fL Immature Granulocyte % (Auto) 0.5 0-1 % Neutrophils (%) (Auto) 91.0 H 40.0-77.0 % Lymphocytes (%) (Auto) 2.7 L 21.0-51.0 % Monocytes (%) (Auto) 5.7 3.0-13.0 % Eosinophils (%) (Auto) 0.0 0.0-8.0 % Basophils (%) (Auto) 0.1 0.0-5.0 % Neutrophils # (Auto) 19.0 H 1.8-7.7 K/uL Lymphocytes # (Auto) 0.6 L 1.0-4.8 K/uL Monocytes # (Auto) 1.2 H 0.1-1.0 K/uL Eosinophils # (Auto) 0.00 0.00-0.70 K/uL Basophils # (Auto) 0.02 0.00-0.20 K/uL Absolute Immature Granulocyte (auto 0.10 0-1 K/uL Nucleated Red Blood Cells 0.0 0.0-0.19 % Segmented Neutrophils % 82 H 40-70 % Band Neutrophils % 9 H 0-2 % Lymphocytes % (Manual) 3 L 22-44 % Monocytes % (Manual) 6 2-9 % Differential Comment MANUAL DIFFERENTIAL White Cell Morphology Comment CONSISTENT W/DIFF Platelet Morphology Comment SLIGHT INC Red Blood Cell Morphology See comments Chemistry Labs: Test 05/24/24 07:43 05/23/24 16:57 05/23/24 09:47 Range/Units Sodium Level 138 136-145 mmol/L Potassium Level 3.5 3.5-5.1 mmol/L Chloride Level 103 101-111 mmol/L Carbon Dioxide Level 27 21-32 mmol/L Blood Urea Nitrogen 62 H 7-18 mg/dL Creatinine 3.0 H 0.5-1.0 mg/dL Glomerular Filtration Rate Calc 16 >90 mL/min Random Glucose 89 70-105 mg/dL Total Calcium 8.6 8.5-10.1 mg/dL Phosphorus Level 3.9 2.5-4.9 mg/dL Magnesium Level 1.60 L 1.80-2.40 mg/dL Total Bilirubin 0.4 0.2-1.0 mg/dL Aspartate Amino Transf (AST/SGOT) 27 10-37 U/L Alanine Aminotransferase (ALT/SGPT) 12 # 12-78 U/L Alkaline Phosphatase 106 50-136 U/L Total Protein 4.9 #L 6.0-8.3 g/dL Albumin 1.6 #L 3.5-5.0 g/dL Whole Blood Ketones Quantitative 0.6 0.0-0.6 mmol/L Lactic Acid Level 1.5 0.8-2.5 mmol/L Ammonia < 10 L 11-32 umol/L Procalcitonin 0.99 H 0.05-0.5 ng/mL Total Creatine Kinase 574 #*H 21-232 U/L Troponin I High Sensitivity 27 4-50 ng/L Coagulation Labs: Test 05/23/24 13:14 Range/Units Prothrombin Time 11.5 9.6-11.6 SEC Prothromb Time International Ratio 1.03 0.85-1.15 Activated Partial Thromboplast Time 29.5 26.3-35.5 SEC DIAGNOSTICS / RADIOLOGY RESULTS: [ ] PLAN 500 ml LR bolus, Start TPN at 75ml/hr continue Levophed and wean but maintain a MAP > 65 CBC CMP PT INR in am Panculture Flu and COVID bith negative Trend lactic acid -normalized CRP Follow Blood cultures Continue Meropenem and Zyvox hydrocortisone 50 mg q.6 hours IV for vasopressor dependent Relistor for opioid induced constipation NEURO: Minimize central acting medications as possible. Fall Precautions. Well lighted room through the day and minimize interruptions through the night to prevent acute delirium. PULMONARY: Supplemental 02 as needed Titrate Fio2 to keep Spo2 > or = 90% DuoNebs and CPT as needed IS hourly while awake for pulmonary hygiene Out of bed to chair as tolerated VAP Bundle currently on o2 at 4 L CARDIOVASCULAR: Follow hemodynamics. Titrate vasopressor to keep MAP >65 or systolic blood pressure >95mmHg continuous cardiac monitoring Drips: Levophed TPN LINES: PIV CVC to RT IJ GI & NUTRITION: Continue nutritional support Aspirations precautions Prokinetic agents and laxatives as needed Consult general surgery for eval and recs KIDNEYS & ELECTROLYTES: Strict monitoring of intake and output Daily weights Avoid nephrotoxic agents Monitor electrolytes and replace as needed Goal urine output of 30mL/hr or 0.5mL/kg/hr ENDOCRINE: Maintain blood glucose between 100-180 at all times. Insulin sliding scale for blood glucose management INFECTIOUS DISEASE: Trend temperature. Clarke-culture if febrile. Micro: [ ] Influenza (A and B)- negative COVID-19 negative blood culture- urine culture- respiratory culture- Antibiotics: Meropenem and Zyvox HEMATOLOGY & COAGULATION: Monitor H&H. Keep Hgb > 7 Transfuse 1 unit of PRBC for Hgb < 7 Transfuse 1 pack of platelets of platelets < 20, 000 Watch for any signs and symptoms of bleeding SKIN: Pressure ulcer prevention per facility protocol Rehab: PT/OT Prophylaxis: GI: Protonix DVT: Heparin SQ Code Status: Full Resuscitation Disposition: ICU Other: Total patient care time exceeds 45 minutes excluding all procedures. Case was discussed and seen with my supervising physician. The above plan was formulated and agreed upon. DEJAN STOREY May 24, 2024 21:33
[2024-05-25] VITALS (103 sets, daily range): BP systolic 98–169; BP diastolic 25–93; PULSE 62–93; RESP 10–77; TEMP 97.5–97.9; O2SAT 96–100
[2024-05-25 05:47] LABS: HEMATOCRIT 25.8 % (36-48); MEAN CORPUSCULAR HEMOGLOBIN 28.4 pg (27.0-33.0); MEAN CORPUSCULAR HGB CONC 31.4 g/dL (32.0-36.0); MEAN CORPUSCULAR VOLUME 90.5 fL (79-99); RED BLOOD CELL COUNT(AUTO) 2.85 MIL/uL (4.00-5.50); RED CELL DISTRIBUTION WIDTH 15.5 % (11.0-15.5); WHITE BLOOD COUNT (AUTO) 21.4 K/uL (4.8-10.8)
[2024-05-25 05:58] LABS: INR 1.1 (0.85-1.15); PROTHROMBIN TIME 12.2 SEC (9.6-11.6)
[2024-05-25 06:01] LABS: CREATININE 1.8 mg/dL (0.5-1.0); MAGNESIUM 2.2 mg/dL (1.80-2.40); POTASSIUM 3.2 mmol/L (3.5-5.1)
[2024-05-25 06:14] LABS: % IRON SATURATION 78.5 % (22-44)
[2024-05-25] MEDS: BALSAM PERU/CASTOR OIL 60 GM TUBE TP SCH (08:14)
[2024-05-25] MEDS: FAT EMULSIONS 20% 250ML 250 ML IV SCH (09:14)
--- NOTE | 2024-05-25 10:04 | PN ---
[facility] PROGRESS NOTE Date Patient Seen: May 25, 2024 Time of Visit: 10:03 Supervising Physician:Kolby Dias MD Primary Care Physician: Chapincito Guardado MD Outpatient Specialists: Inpatient Consults: LEATHA Farrell (Critical care team) , Dr Augustus Ferguson, Dr Eduardo PROBLEM LIST: Acute hypoxic respiratory failure, POA septic shock POA , no responsive to IVF, Requiring Levophed, resolving Suspected CAP, POA Small bowel obstruction POA Acute complicated cystitis, POA Hematuria POA Severe Dehydration Acute kidney injury POA Electrolyte derangement POA ( Hyponatremia, Hyperchloremia) History of chronic opioid use Frailty Debility History of chronic left hip dislocation, Opiate induced Illeus, Hypothyroidism, multiple recent hospitalizations with long hospital stay, opiate overdose w/ morphine, and fibromyalgia, Osteoarthritis , spinal cord stimulation (SCS) INTERVAL HISTORY: Patient is awake alert and oriented x3. As per RN she just turned off Levophed drip. Blood pressure 144/93 with a heart rate in the 80s respiratory rate of 20 saturating 98% with 2 L via nasal cannula and afebrile. Patient had large bowel movement overnight. Per General surgery patient can start clear liquid diet no plans for OR at this time. She continues on TPN. If patient tolerates chloride liquid diet we can stop TPN and start p.o. feeding. Urine output 1.7 L in the last 24 hours with a balance of +1.9 L we will stop current IV fluids and give a one time dose of Lasix 20 mg IV push. On laboratory WBCs at 21.4 likely reactive from high-dose hydrocortisone that was started for refractory shock H&H was 8.1/25.8 seems to be slowly trending down, platelet count 321 K. On chemistries sodium 138 potassium 3.2 covered per protocol BUN 62 creatinine of 1.8 improved from yesterday which was 3.0 GFR of 29 and glucose of 212 mg/dL total calcium 8.1 BNP 569. No growth two blood cultures and no growth to urine culture. REVIEW OF SYSTEMS: General:reports generalized body pain. Neurological: No fainting episodes or seizures. HEENT: No nasal congestion or nasal secretion. Respiratory: No cough, shortness of breath, or wheezing Cardiac: No chest pain or palpitations. Gastrointestinal:yes for nausea and much output to ng tube . Genitourinary: No dysuria hematuria. Skin: No rashes or lesions. Hematological: No bruises or bleeding. Musculoskeletal: reports chronic pain to hands and fingers, back and hip Psychiatric: No depression or panic attacks. PHYSICAL EXAM: GENERAL: Mental status improving weak, awake oriented x 3 GCS 15 HEENT: Sclera non icteric, moist mucosa NECK: Supple, no JVD, trachea midline LUNGS: Clear breath sounds bilaterally. No wheezes HEART: Regular rate and rhythm. Normal S1 and S2, without murmurs ABD: abdomen distended but soft non tender, Bowel sounds hypoactive EXT: No clubbing cyanosis or edema NEURO: AAOx3 no focal weakness Vital Signs (last 8hr) Date Time Temp Pulse Resp B/P (MAP) Pulse Ox O2 Delivery O2 Flow Rate FiO2 05/25/24 08:16 98 Nasal Cannula* 2 28 05/25/24 07:46 97.9 85 14 135/83 (100) 98 05/25/24 07:31 85 19 143/80 (101) 97 05/25/24 07:16 92 13 117/69 (85) 98 05/25/24 07:01 89 15 126/73 (90) 98 05/25/24 07:00 89 15 126/73 (90) 98 05/25/24 06:46 80 16 121/69 (86) 99 05/25/24 06:45 80 16 121/69 (86) 99 05/25/24 06:31 84 13 123/72 (89) 99 05/25/24 06:30 84 13 123/72 (89) 99 05/25/24 06:16 85 15 131/79 (96) 99 05/25/24 06:15 85 15 131/79 (96) 99 05/25/24 06:00 79 14 124/70 (88) 99 05/25/24 05:45 80 14 126/71 (89) 99 05/25/24 05:30 81 14 122/69 (86) 99 05/25/24 05:15 71 14 125/75 (92) 99 05/25/24 05:00 73 12 129/77 (94) 99 05/25/24 04:45 84 18 110/57 (74) 100 05/25/24 04:30 69 15 102/72 (82) 97 05/25/24 04:15 82 22 133/75 (94) 98 05/25/24 04:00 91 17 100/69 (79) 98 05/25/24 03:50 100 Nasal Cannula* 2 28 05/25/24 03:45 78 77 123/73 (90) 100 05/25/24 03:30 79 13 124/74 (91) 100 05/25/24 03:15 84 13 126/79 (95) 99 05/25/24 03:00 82 13 123/78 (93) 99 05/25/24 02:45 87 14 127/76 (93) 99 05/25/24 02:30 64 32 117/74 (88) 98 05/25/24 02:15 62 21 111/64 (80) 98 LABS: Hematology Labs: Test 05/25/24 05:07 05/24/24 07:43 Range/Units White Blood Count 21.4 H 4.8-10.8 K/uL Red Blood Count 2.85 L 4.00-5.50 MIL/uL Hemoglobin 8.1 L 12.0-16.0 g/dL Hematocrit 25.8 L 36-48 % Mean Corpuscular Volume 90.5 79-99 fL Mean Corpuscular Hemoglobin 28.4 27.0-33.0 pg Mean Corpuscular Hemoglobin Concent 31.4 L 32.0-36.0 g/dL Red Cell Distribution Width 15.5 11.0-15.5 % Platelet Count 321 130-400 K/uL Mean Platelet Volume 8.8 7.5-10.5 fL Nucleated Red Blood Cells 0.0 0.0-0.19 % Immature Granulocyte % (Auto) 0.5 0-1 % Neutrophils (%) (Auto) 91.0 H 40.0-77.0 % Lymphocytes (%) (Auto) 2.7 L 21.0-51.0 % Monocytes (%) (Auto) 5.7 3.0-13.0 % Eosinophils (%) (Auto) 0.0 0.0-8.0 % Basophils (%) (Auto) 0.1 0.0-5.0 % Neutrophils # (Auto) 19.0 H 1.8-7.7 K/uL Lymphocytes # (Auto) 0.6 L 1.0-4.8 K/uL Monocytes # (Auto) 1.2 H 0.1-1.0 K/uL Eosinophils # (Auto) 0.00 0.00-0.70 K/uL Basophils # (Auto) 0.02 0.00-0.20 K/uL Absolute Immature Granulocyte (auto 0.10 0-1 K/uL Chemistry Labs: Test 05/25/24 05:07 05/24/24 07:43 05/23/24 16:57 Range/Units Sodium Level 138 136-145 mmol/L Potassium Level 3.2 L 3.5-5.1 mmol/L Chloride Level 106 101-111 mmol/L Carbon Dioxide Level 22 21-32 mmol/L Blood Urea Nitrogen 62 H 7-18 mg/dL Creatinine 1.8 H 0.5-1.0 mg/dL Glomerular Filtration Rate Calc 29 >90 mL/min Random Glucose 212 #H 70-105 mg/dL Total Calcium 8.1 L 8.5-10.1 mg/dL Magnesium Level 2.20 1.80-2.40 mg/dL Iron Level 55 # 50-170 mcg/dL Total Iron Binding Capacity 70 L 250-450 mcg/dL Percent Iron Saturation 78.5 H 22-44 % Phosphorus Level 3.9 2.5-4.9 mg/dL Total Bilirubin 0.4 0.2-1.0 mg/dL Aspartate Amino Transf (AST/SGOT) 27 10-37 U/L Alanine Aminotransferase (ALT/SGPT) 12 # 12-78 U/L Alkaline Phosphatase 106 50-136 U/L Total Protein 4.9 #L 6.0-8.3 g/dL Albumin 1.6 #L 3.5-5.0 g/dL Whole Blood Ketones Quantitative 0.6 0.0-0.6 mmol/L Lactic Acid Level 1.5 0.8-2.5 mmol/L Ammonia < 10 L 11-32 umol/L Procalcitonin 0.99 H 0.05-0.5 ng/mL Coagulation Labs: Test 05/25/24 05:07 05/23/24 13:14 Range/Units Prothrombin Time 12.2 H 9.6-11.6 SEC Prothromb Time International Ratio 1.10 0.85-1.15 Fibrinogen 477 H 180-350 mg/dL Activated Partial Thromboplast Time 29.5 26.3-35.5 SEC DIAGNOSTICS / RADIOLOGY RESULTS: [ ]IMAGING REPORT Signed PATIENT: JOSÉ MIGUEL OSORIO MR#: [id number] : 1950 SEX: F AGE: 73 LOCATION: [facility] ORDER 04 STATUS: ADM IN REPORT#: [id number] SERVICE 100 REASON: duspected pneumonia ORDERING PHYSICIAN: DEJAN STOREY PROCEDURE: CXR1VW - CHEST 1VW Exam Type: CHEST 1VW Clinical Information: duspected pneumonia Comparison: None Findings: Pulmonary pattern is as before. No worrisome interval changes have taken place. Impression: Stable exam. DICTATED BY: NGOC ELIZABETH MD DATE: 05/25/241548 ELECTRONICALLY SIGNED BY: NGOC ELIZABETH MD DATE: 05/25/24 155 PLAN Continue TPN at 75ml/hr Start clear liquid diet per General surgery recommendations If patient tolerates clear liquid diet we can stop TPN CBC CMP PT INR in am Panculture Flu and COVID bith negative Trend lactic acid -normalized CRP Follow Blood cultures Continue Meropenem and Zyvox hydrocortisone 50 mg q.6 hours IV for vasopressor dependent, wean Relistor for opioid induced constipation NEURO: Minimize central acting medications as possible. Fall Precautions. Well lighted room through the day and minimize interruptions through the night to prevent acute delirium. PULMONARY: Supplemental 02 as needed Titrate Fio2 to keep Spo2 > or = 90% DuoNebs and CPT as needed IS hourly while awake for pulmonary hygiene Out of bed to chair as tolerated VAP Bundle currently on o2 at 4 L CARDIOVASCULAR: Follow hemodynamics. Titrate vasopressor to keep MAP >65 or systolic blood pressure >95mmHg continuous cardiac monitoring Drips: Levophed TPN LINES: PIV CVC to RT IJ GI & NUTRITION: Continue nutritional support Aspirations precautions Prokinetic agents and laxatives as needed Consult general surgery for eval and recs KIDNEYS & ELECTROLYTES: Strict monitoring of intake and output Daily weights Avoid nephrotoxic agents Monitor electrolytes and replace as needed Goal urine output of 30mL/hr or 0.5mL/kg/hr ENDOCRINE: Maintain blood glucose between 100-180 at all times. Insulin sliding scale for blood glucose management INFECTIOUS DISEASE: Trend temperature. Clarke-culture if febrile. Micro: [ ] Influenza (A and B)- negative COVID-19 negative blood culture- urine culture- respiratory culture- Antibiotics: Meropenem and Zyvox HEMATOLOGY & COAGULATION: Monitor H&H. Keep Hgb > 7 Transfuse 1 unit of PRBC for Hgb < 7 Transfuse 1 pack of platelets of platelets < 20, 000 Watch for any signs and symptoms of bleeding SKIN: Pressure ulcer prevention per facility protocol Rehab: PT/OT Prophylaxis: GI: Protonix DVT: Heparin SQ Code Status: Full Resuscitation Disposition: ICU Other: Total patient care time exceeds 45 minutes excluding all procedures. Case was discussed and seen with my supervising physician. The above plan was formulated and agreed upon. DEJAN STOREY May 25, 2024 10:04
[2024-05-25] MEDS: METHYLNALTREXONE BROMIDE SQ SCH (11:01)
--- NOTE | 2024-05-25 13:00 | NUR ---
D/C PLAN CM obtained information from medical record. Patient is a readmission from less than a week. Patient lives at [facility]. Patient has the following DME: electric wheelchair, transport wheelchair, walker, and bedside commode. Patient with history of refusing placement and hospice in the past. Plan for now is to return to previous setting vs LTAC if needing TPN longterm. CM to f/u. Addendum: 05/25/24 at 1305 by OSCAR MORGAN CM Amended: Links added.
--- NOTE | 2024-05-25 14:44 | PN ---
[facility] PROGRESS NOTE Date of Service: May 25, 2024 Time of Service: 14:29 SUBJECTIVE: [ ] This 73-year-old female with past medical history of hypertension hypothyroidism, diabetes mellitus type, history of chronic left hip pain with hip dislocation, anemia presented to the hospital secondary to abdominal pain, nausea, vomiting. Labs were notable for white count of 38.1, hemoglobin was 11.5, platelet count is 447 K, sodium is 128, potassium was 4.6, chloride is 86, creatinine is 4.7, BUN is 67, CK is 574, calcium is 10.5, glucose is 130, lactic acid is two point, troponin is negative x1. Patient underwent CT abdomen pelvis which showed small bowel obstruction. Concern for possible bilateral basal pneumonia. Patient admitted to the intensive care unit for further evaluation and medical management. Patient is seen and examined bedside, she is awake, following commands, NPO, NG tube connected to intermittent suction, discussed with the RN, 1.6 L output since last night, BP 113/65, heart rate 108, saturating 96% 2 L nasal cannula. Remains on pressor support with Levophed, getting broad-spectrum IV antibiotics during my visit. WBC trending down 20 point, hemoglobin 8.5, 26.6. BUN 62, creatinine 3.0, magnesium 1.6. Chest x-ray no acute pulmonary infiltrate seen. Follow repeat KUB. Monitor renal function in a.m. awaiting surgical recommendations to see if the patient will be taken to the operating room for exploration. 2/3 patient seen at bedside, no acute events overnight. She has had one bowel movement since admission and has been weaned off pressors. She has been afebrile, hemodynamically stable saturating 99% on 2 L nasal cannula, we will be weaned as able. WBC is stable at 21.4, similar to yesterday, hemoglobin decreased from 8.5 down to 8.1, platelets decreased from 353 down to 321, creatinine improved from 3.0 down to 1.8, potassium decreased from 3.5 down to 2.2, remainder of her labs are relatively unremarkable. With these changes in lab suggest that she was dehydrated with TERRANCE on admission. Cultures are no growth to date, we will continue with empiric antibiotics per Infectious Disease recommendations. REVIEW OF SYSTEMS CONSTITUTIONAL: Denies fevers, chills, or night sweats. No unintentional weight loss reported. NEUROLOGICAL: Denies headache, amaurosis fugax, motor weakness, sensory deficit, vertigo/spinning sensation, gait abnormalities, or tremors. ENT: No hearing loss, otalgia, otorrhea, rhinitis, rhinorrhea, hoarseness, or sore throat. CARDIOVASCULAR: Denies any exertional angina, dyspnea on exertion, orthopnea, paroxysmal nocturnal dyspnea, palpitations, life-threatening arrhythmias, claudication. PULMONARY: Denies any shortness of breath, cough, phlegm/sputum, hemoptysis, pleuritic chest pain. GASTROINTESTINAL: Positive for abdominal pain, nausea, vomiting. Denied any melena, hematochezia hematemesis. GENITOURINARY: Denies frequency, urgency, nocturia, hematuria or incontinence (Storage/Irritative symptoms.) Low urinary stream, straining to void, urinary intermittency or hesitancy, splitting of the voiding stream, terminal dribbling. ENDOCRINOLOGIC: Denies polyuria, polydipsia, polyphagia or heat/cold intoleranc es. HEMATOLOGIC: Denies thrombophilia/previous clots, or coagulopathy/bleeding disorders. ONCOLOGIC: Denies personal history of malignancy. DERMATOLOGIC: Denies rashes or pruritus. PSYCHIATRIC: Denies any suicidal or homicidal ideation. Denies hallucinations. PHYSICAL EXAM GENERAL APPEARANCE: The patient is awake, alert, and oriented, in no acute cardiopulmonary distress. Appears frail NEUROLOGICAL: Cranial nerves II-XII grossly intact. Motor is 5/5 in bilateral upper and lower extremities proximal to distal. No sensory deficits. HEENT: Face is symmetric. Pupils are equal and reactive. Extraocular movements are intact. NECK: Supple. No JVD. No thyromegaly. No submental, submandibular, pre- /postauricular, occipital or supraclavicular lymphadenopathy. CHEST: Normal chest expansion. No Telemetry. LUNGS: Absence of any rales, rhonchi or any wheezing. CARDIOVASCULAR: Regular. S1 and S2 normal. No appreciable rubs, murmurs or gallops. ABDOMEN: Mildly distended, mild diffuse tenderness. : Deferred. No Hearn. EXTREMITIES: Non-edematous and not cyanotic. No clubbing. Good capillary refill. SKIN: No skin breakdown. Vital Signs (last 8hr) Date Time Temp Pulse Resp B/P (MAP) Pulse Ox O2 Delivery O2 Flow Rate FiO2 05/25/24 12:30 99 Nasal Cannula* 2 28 05/25/24 12:02 97.5 85 18 130/87 99 Nasal Cannula 2.0 05/25/24 11:46 79 15 122/66 98 05/25/24 11:31 84 14 127/72 99 05/25/24 11:16 85 13 130/74 100 Nasal Cannula 2.0 05/25/24 11:01 89 17 124/71 100 05/25/24 10:01 90 22 144/93 98 05/25/24 09:47 86 17 169/76 97 Nasal Cannula 2.0 05/25/24 09:31 87 13 118/86 83 05/25/24 09:16 87 13 123/48 99 05/25/24 09:01 84 13 131/56 99 Nasal Cannula 2.0 05/25/24 08:46 84 13 139/77 98 05/25/24 08:31 80 13 122/75 99 05/25/24 08:16 98 Nasal Cannula* 2 28 05/25/24 08:16 84 16 129/76 99 Nasal Cannula 2.0 05/25/24 08:16 84 16 129/76 (93) 99 05/25/24 08:01 86 35 133/83 97 05/25/24 08:01 86 35 133/83 (100) 97 05/25/24 07:46 97.9 85 14 135/83 (100) 98 05/25/24 07:31 85 19 143/80 (101) 97 05/25/24 07:16 92 13 117/69 (85) 98 05/25/24 07:01 89 15 126/73 (90) 98 05/25/24 07:00 89 15 126/73 (90) 98 05/25/24 06:46 80 16 121/69 (86) 99 05/25/24 06:45 80 16 121/69 (86) 99 05/25/24 06:31 84 13 123/72 (89) 99 05/25/24 06:30 84 13 123/72 (89) 99 LABS: Laboratory: Test 05/25/24 11:06 05/25/24 05:07 05/24/24 07:43 05/23/24 16:57 Range/Units Activated Partial Thromboplast Time 42.7 H 26.3-35.5 SEC White Blood Count 21.4 H 4.8-10.8 K/uL Red Blood Count 2.85 L 4.00-5.50 MIL/uL Hemoglobin 8.1 L 12.0-16.0 g/dL Hematocrit 25.8 L 36-48 % Mean Corpuscular Volume 90.5 79-99 fL Mean Corpuscular Hemoglobin 28.4 27.0-33.0 pg Mean Corpuscular Hemoglobin Concent 31.4 L 32.0-36.0 g/dL Red Cell Distribution Width 15.5 11.0-15.5 % Platelet Count 321 130-400 K/uL Mean Platelet Volume 8.8 7.5-10.5 fL Nucleated Red Blood Cells 0.0 0.0-0.19 % Prothrombin Time 12.2 H 9.6-11.6 SEC Prothromb Time International Ratio 1.10 0.85-1.15 Fibrinogen 477 H 180-350 mg/dL Sodium Level 138 136-145 mmol/L Potassium Level 3.2 L 3.5-5.1 mmol/L Chloride Level 106 101-111 mmol/L Carbon Dioxide Level 22 21-32 mmol/L Blood Urea Nitrogen 62 H 7-18 mg/dL Creatinine 1.8 H 0.5-1.0 mg/dL Glomerular Filtration Rate Calc 29 >90 mL/min Random Glucose 212 #H 70-105 mg/dL Total Calcium 8.1 L 8.5-10.1 mg/dL Magnesium Level 2.20 1.80-2.40 mg/dL Iron Level 55 # 50-170 mcg/dL Total Iron Binding Capacity 70 L 250-450 mcg/dL Percent Iron Saturation 78.5 H 22-44 % B-Type Natriuretic Peptide 569 H 0-100 pg/mL Immature Granulocyte % (Auto) 0.5 0-1 % Neutrophils (%) (Auto) 91.0 H 40.0-77.0 % Lymphocytes (%) (Auto) 2.7 L 21.0-51.0 % Monocytes (%) (Auto) 5.7 3.0-13.0 % Eosinophils (%) (Auto) 0.0 0.0-8.0 % Basophils (%) (Auto) 0.1 0.0-5.0 % Neutrophils # (Auto) 19.0 H 1.8-7.7 K/uL Lymphocytes # (Auto) 0.6 L 1.0-4.8 K/uL Monocytes # (Auto) 1.2 H 0.1-1.0 K/uL Eosinophils # (Auto) 0.00 0.00-0.70 K/uL Basophils # (Auto) 0.02 0.00-0.20 K/uL Absolute Immature Granulocyte (auto 0.10 0-1 K/uL Phosphorus Level 3.9 2.5-4.9 mg/dL Total Bilirubin 0.4 0.2-1.0 mg/dL Aspartate Amino Transf (AST/SGOT) 27 10-37 U/L Alanine Aminotransferase (ALT/SGPT) 12 # 12-78 U/L Alkaline Phosphatase 106 50-136 U/L Total Protein 4.9 #L 6.0-8.3 g/dL Albumin 1.6 #L 3.5-5.0 g/dL Whole Blood Ketones Quantitative 0.6 0.0-0.6 mmol/L Lactic Acid Level 1.5 0.8-2.5 mmol/L Ammonia < 10 L 11-32 umol/L Procalcitonin 0.99 H 0.05-0.5 ng/mL Current Medications Medications (Trade) Dose Ordered Sig/Dionisio Route PRN Reason Start Time Stop Time Status Last Admin Dose Admin Famotidine (Pepcid 20mg Vial) 20 mg Q48H IV 05/23/24 21:00 05/23/24 19:37 DC Fat Emulsion Intravenous 250 ml @ 42 mls/hr MoWeFr@1000 IV 05/25/24 10:00 06/24/24 09:59 05/25/24 09:14 42 MLS/HR Heparin Sodium (Porcine) (HEParin 5,000 UNIT VIAL) 5,000 unit Q12H SQ 05/23/24 21:00 06/22/24 20:59 05/25/24 09:14 5,000 UNIT Hydrocortisone Sodium Succinate (Solu-corTEF 100MG) 50 mg Q6H IV 05/24/24 14:00 05/25/24 10:08 DC 05/25/24 09:13 50 MG Hydrocortisone Sodium Succinate (Solu-corTEF 100MG) 50 mg Q8H IV 05/25/24 16:00 06/23/24 13:59 Hydromorphone HCl (DiLAUDid 0.5MG INJ) 0.2 mg Q6H PRN IVP SEVERE PAIN (7-10) 05/23/24 13:30 05/24/24 01:23 DC 05/24/24 00:08 0.2 MG Hydromorphone HCl (DiLAUDid 0.5MG INJ) 0.3 mg Q4HPRN PRN IVP SEVERE PAIN (7-10) 05/24/24 01:30 05/28/24 13:29 05/25/24 11:07 0.3 MG Hydromorphone HCl (DiLAUDid 0.5MG INJ) 0.5 mg Q6H PRN IVP SEVERE PAIN (7-10) 05/23/24 13:30 05/23/24 13:18 DC Linezolid 300 ml @ 150 mls/hr Q12H IV 05/23/24 11:30 06/02/24 11:29 05/25/24 11:07 150 MLS/HR Magnesium Sulfate 50 ml @ 0 mls/hr PROTOCOL PRN IV ad 05/23/24 17:00 06/22/24 16:59 05/24/24 08:58 25 MLS/HR Meropenem (Merrem) 1 gm Q24H IVPB 05/23/24 14:00 06/02/24 13:59 05/24/24 13:38 1 GM Methylnaltrexone Gaines (reLIStor) 12 mg DAILY SQ 05/25/24 09:00 06/24/24 08:59 05/25/24 11:01 12 MG Norepinephrine 250 ml @ 0 mls/hr PROTOCOL IV 05/23/24 16:00 05/24/24 07:36 DC 05/24/24 01:40 51 MLS/HR Norepinephrine Bitartrate 250 ml @ 0 mls/hr PROTOCOL IV 05/24/24 08:00 06/23/24 07:59 Norepinephrine Bitartrate (Norepineph 16 Mg/250ml NS Premix) Protocol PROTOCOL IV 05/24/24 07:30 05/24/24 07:39 DC Pantoprazole Sodium (PROTonix 40MG INJ) 40 mg DAILY IVP 05/24/24 09:00 06/23/24 08:59 05/25/24 09:14 40 MG Pharmacy Profile Note (Lace Assessment) 1 each AD MISC 05/23/24 13:30 05/23/24 13:25 DC Sodium Chloride 500 ml @ 0 mls/hr Q0M IV 05/24/24 10:00 06/23/24 09:59 05/24/24 09:54 1,200 MLS/HR Sodium Chloride 1,000 ml @ 125 mls/hr Q8H IV 05/23/24 13:30 06/22/24 13:29 05/25/24 07:59 125 MLS/HR Wound Care/ Dressing Products (Venelex Ointment Packet) 1 gm BID TP 05/24/24 21:00 05/25/24 07:07 DC 05/24/24 20:09 1 GM Wound Care/ Dressing Products (Venelex Ointment) 1 APPL BID TP 05/25/24 09:00 06/24/24 08:59 05/25/24 08:14 1 GM DIAGNOSTICS / RADIOLOGY: [ ] ASSESSMENT: Severe sepsis, resolved POA Hypotension improved POA Small bowel obstruction, ruled out POA Opiate induced ileus Medical non-compliance UTI POA Dehydration Acute kidney injury, improving POA Hyponatremia Mild CK elevation Hyperchloremia History of chronic opioid use Frailty Debility History of chronic left hip dislocation POA PLAN: - patient remains admitted to the ICU -Continue NPO with NG tube to intermittent suction -Start methylnatrexone -Start TPN -Continue broad spectrum antibiotics -ID consulted, appreciate recommendations -reference to acute kidney injury. Continue supportive care with IV fluids -Nephrology consultation requested, follow input recommendation -critical care input noted and appreciated -patient will be on Dilaudid for pain control -further orders per hospitalization course. Disposition: Pending improvement in clinical status Greater than 35 minutes ICU time spent in care of patient MARCO JOLLY MD May 25, 2024 14:44
--- NOTE | 2024-05-25 15:51 | HMCIMG ---
Exam Type: CHEST 1VW Clinical Information: duspected pneumonia Comparison: None Findings: Pulmonary pattern is as before. No worrisome interval changes have taken place. Impression: Stable exam.
[2024-05-25] MEDS: M.V.I. IV [ADULT] 10 ML in CLINIMIX-E 5%AA /D15%W 2000ML 2,000 ML IV ONE (16:24)
[2024-05-25] MEDS: hydroCORTisone SOD SUCCINATE 100 MG/2 ML VIAL IV SCH (16:24)
--- NOTE | 2024-05-25 17:46 | CONS ---
CONSULTATION NOTE Date of Service: May 25, 2024 Reason for Consultation: [Pressure ulcer on the sacrococcygeal area and bilateral buttocks ] Requesting Physician: [ Dr. Farias ] This 73-year-old female with past medical history of hypertension hypothyroidism, diabetes mellitus type, history of chronic left hip pain with hip dislocation, anemia presented to the hospital secondary to abdominal pain, nausea, vomiting. Patient's history is obtained from patient and from chart review. Patient was recently admitted to [facility] for over a month. She was discharged on May 18, 2024. During admission patient was found to bowel obstruction and had NG tube placed. Patient was noted to be on chronic pain medications including fentanyl. Surgery was consulted during hosp italization. Patient was in the hospital for more than a month. Her symptoms improved and then she was discharged to [facility] facility. Patient states for the past 2-3 days she has noted increasing abdominal distention with associated nausea and vomiting. She also complains of abdominal pain. She has not been eating very well and states she has been mostly sitting in a chair. She has noted decreased urination and decreased appetite. She denied any fever, chills, chest pain, shortness of breath, falls, syncopal episode. She appears very frail when seen at bedside. Secondary to non improving symptoms patient thereafter came to the hospital for further evaluation. Patient has history of chronic hip dislocation and from chart review patient was not a surgical candidate. Labs were notable for white count of 38.1, hemoglobin was 11.5, platelet count is 447 K, sodium is 128, potassium was 4.6, chloride is 86, creatinine is 4.7, BUN is 67, CK is 574, calcium is 10.5, glucose is 130, lactic acid is two point, troponin is negative x1. Patient underwent CT abdomen pelvis which showed small bowel obstruction. Concern for possible bilateral basal pneumonia. Patient is Hearn catheter was noted to be cloudy. 05/25/2024. This is a 73-year-old female with history of multiple comorbidities seen at the bedside for initial wound care evaluation and management of large DTI affecting the sacrococcygeal area and bilateral buttocks. Patient is alert and cooperative no acute distress. Current treatment is Venelex ointment t.i.d. and p.r.n. and aggressive offloading repositioning the patient every 2 hours per protocol using wedge foam. No family at the bedside. Primary nurse assisting me with the physical exam. REVIEW OF SYSTEMS CONSTITUTIONAL: Denies fever, chills, or fatigue. HEAD/FACE: No signs of trauma. EENT: Denies eye pain, blurred vision, double vision, or light sensitivity. RESPIRATORY: Denies shortness of breath, cough, wheezing CARDIOVASCULAR: Denies chest pain, palpitation, syncope GASTROINTESTINAL/ABDOMINAL: Denies abdominal pain, constipation, diarrhea, nausea or vomiting GENITOURINARY: Denies dysuria or hematuria. MUSCULOSKELETAL: Denies joint pain, tenderness, or trauma. INTEGUMENTARY: Pressure ulcer on the sacrum and bilateral buttocks NEUROLOGICAL/PSYCH: Denies anxiety, depression, heat or cold intolerance. PAST MEDICAL HISTORY: Hypertension, hypothyroidism, diabetes mellitus type 2 PAST SURGICAL HISTORY: History of hysterectomy, bilateral hip replacement. PAST SOCIAL HISTORY: Denied any smoking, alcohol, drug use FAMILY HISTORY: Denied any pertinent family history Coded Allergies: butorphanol (Unverified Allergy, Intermediate, 04/06/24) Penicillins (Verified Allergy, Unknown, 07/17/16) levofloxacin (Unverified Allergy, Unknown, 04/08/24) pregabalin (Unverified Allergy, Unknown, 07/17/16) vancomycin (Verified Allergy, Unknown, 07/17/16) Uncoded Allergies: PCN (Allergy, Mild, 11/22/11) VANCO (Allergy, Unknown, 07/17/16) Coded Allergies: butorphanol (Unverified Allergy, Intermediate, 04/06/24) Penicillins (Verified Allergy, Unknown, 07/17/16) levofloxacin (Unverified Allergy, Unknown, 04/08/24) pregabalin (Unverified Allergy, Unknown, 07/17/16) vancomycin (Verified Allergy, Unknown, 07/17/16) Uncoded Allergies: PCN (Allergy, Mild, 11/22/11) VANCO (Allergy, Unknown, 07/17/16) PHYSICAL EXAM EYES: Anicteric. Pupils equal and reactive. HENT: No oral thrush seen, moist Oral mucosa NECK: Supple, no JVD or thyromegaly. LUNGS: Good air entry. No rales, no rhonchi. CARDIOVASCULAR: S1, S2 regular. No murmur heard. ABDOMEN: Soft, non tender, bowel sounds present, no organomegaly CENTRAL NERVOUS SYSTEM: Awake, alert, oriented x 3. No focal deficits. SKIN: Large DTI affecting the sacrococcygeal area. Large DTI affecting bilateral buttocks, having area with open wounds. LYMPHATICS: No peripheral lymphadenopathy MUSCULOSKELETAL: No joint swelling, erythema or tenderness. EXTREMITIES: No cyanosis or clubbing BACK: No deformity, no pressure ulcer. GENITOURINARY: No dysuria or hematuria Vital Sign (Last 24 Hours) 05/25/24 05/25/24 05/25/24 12:02 12:30 15:01 Temp 97.5 Pulse 90 Resp 19 B/P (MAP) 133/73 Pulse Ox 97 O2 Delivery Nasal Cannula* O2 Flow Rate 2 FiO2 28 Intake & Output (last 24hrs) 05/24/24 05/24/24 05/25/24 15:00 23:00 07:00 Intake Total 2148.2 ml 1625.6 ml 1618.9 ml Output Total 1600 ml 600 ml 900 ml Balance 548.2 ml 1025.6 ml 718.9 ml LABS: Laboratory: Test 05/25/24 11:06 05/25/24 05:07 05/24/24 07:43 Range/Units Activated Partial Thromboplast Time 42.7 H 26.3-35.5 SEC White Blood Count 21.4 H 4.8-10.8 K/uL Red Blood Count 2.85 L 4.00-5.50 MIL/uL Hemoglobin 8.1 L 12.0-16.0 g/dL Hematocrit 25.8 L 36-48 % Mean Corpuscular Volume 90.5 79-99 fL Mean Corpuscular Hemoglobin 28.4 27.0-33.0 pg Mean Corpuscular Hemoglobin Concent 31.4 L 32.0-36.0 g/dL Red Cell Distribution Width 15.5 11.0-15.5 % Platelet Count 321 130-400 K/uL Mean Platelet Volume 8.8 7.5-10.5 fL Nucleated Red Blood Cells 0.0 0.0-0.19 % Prothrombin Time 12.2 H 9.6-11.6 SEC Prothromb Time International Ratio 1.10 0.85-1.15 Fibrinogen 477 H 180-350 mg/dL Sodium Level 138 136-145 mmol/L Potassium Level 3.2 L 3.5-5.1 mmol/L Chloride Level 106 101-111 mmol/L Carbon Dioxide Level 22 21-32 mmol/L Blood Urea Nitrogen 62 H 7-18 mg/dL Creatinine 1.8 H 0.5-1.0 mg/dL Glomerular Filtration Rate Calc 29 >90 mL/min Random Glucose 212 #H 70-105 mg/dL Total Calcium 8.1 L 8.5-10.1 mg/dL Magnesium Level 2.20 1.80-2.40 mg/dL Iron Level 55 # 50-170 mcg/dL Total Iron Binding Capacity 70 L 250-450 mcg/dL Percent Iron Saturation 78.5 H 22-44 % B-Type Natriuretic Peptide 569 H 0-100 pg/mL Immature Granulocyte % (Auto) 0.5 0-1 % Neutrophils (%) (Auto) 91.0 H 40.0-77.0 % Lymphocytes (%) (Auto) 2.7 L 21.0-51.0 % Monocytes (%) (Auto) 5.7 3.0-13.0 % Eosinophils (%) (Auto) 0.0 0.0-8.0 % Basophils (%) (Auto) 0.1 0.0-5.0 % Neutrophils # (Auto) 19.0 H 1.8-7.7 K/uL Lymphocytes # (Auto) 0.6 L 1.0-4.8 K/uL Monocytes # (Auto) 1.2 H 0.1-1.0 K/uL Eosinophils # (Auto) 0.00 0.00-0.70 K/uL Basophils # (Auto) 0.02 0.00-0.20 K/uL Absolute Immature Granulocyte (auto 0.10 0-1 K/uL Phosphorus Level 3.9 2.5-4.9 mg/dL Total Bilirubin 0.4 0.2-1.0 mg/dL Aspartate Amino Transf (AST/SGOT) 27 10-37 U/L Alanine Aminotransferase (ALT/SGPT) 12 # 12-78 U/L Alkaline Phosphatase 106 50-136 U/L Total Protein 4.9 #L 6.0-8.3 g/dL Albumin 1.6 #L 3.5-5.0 g/dL DIAGNOSTICS / RADIOLOGY: [ ] Wound Care assessment: Large deep tissue injury affecting the sacrococcygeal area. Large deep tissue injury affecting bilateral buttocks PROBLEM LIST : Medical Problems: (1) Sepsis ICD Codes: A41.9 - Sepsis, unspecified organism (2) Small bowel obstruction ICD Codes: K56.609 - Unspecified intestinal obstruction, unspecified as to partial versus complete obstruction PLAN: Continue apply Venelex ointment t.i.d. and p.r.n.. Liver open to air. Continue with aggressive repositioning the patient every 2 hours per protocol. Continue managing incontinence. Comorbidities per primary team. Further management per hospital course. Thank you for the consultation allowing me to participate in the care of your patient. LLUVIA JAUREGUI MD May 25, 2024 17:46
--- NOTE | 2024-05-25 18:26 | NUR ---
SPOKE TO AVINASH TSAI, REGARDING POSSIBLE SURGERY FOR PT. HE STATED HE DOES WANT TO DO EXPLORATORY LAP BUT WAITING ON WBC TO NORMALIZE. ORDERS RECEIVED FOR AM LABS. DEJAN ALSO MADE AWARE OF CALL WITH SURGEON. ORDERS RECEIVED FOR DIET, UA, LASIX.
[2024-05-25] MEDS ORDERED: PoTASSium chloRIDE 20MEQ ER 20 MEQ ERTAB PO PRN (19:30)
[2024-05-25] MEDS ORDERED: PoTASSium chloRIDE 20MEQ/100ML 100 ML IV PRN (19:30)
[2024-05-25] MEDS: furoSEMIDE 20MG VIAL IV ONE (20:19)
--- NOTE | 2024-05-25 23:16 | PN ---
NEPHROLOGY NOTE SUBJECTIVE: This patient has multiple problems including acute on chronic renal failure. The patient is in ICU, critically ill, readmitted, multiple other comorbidities present. No other associated finding. No other aggravating or relieving factor. The patient has leukocytosis, anemia, multiple other comorbidities. The patient has also hysterectomy, bilateral hip replacement, pressure ulcers, underlying hypertension, hypothyroidism, diabetes, chronic left hip pain with dislocation, anemia, nausea, vomiting, chronic pain medicine intake, hyponatremia. The patient has small-bowel obstruction and pneumonia detected by CT scan. The patient is in ICU, critically ill, has been on pressors off and on with other comorbidities. The patient has acute kidney injury. REVIEW OF SYSTEMS: CONSTITUTIONAL: With no fever, chills or rigors. HEENT: With no headache, oral ulcers, sore throat or difficulty swallowing. RESPIRATORY: With no cough, expectoration, hemoptysis, or pleuritic pain. CARDIOVASCULAR: No orthopnea or PND. GASTROINTESTINAL: As detailed. GENITOURINARY: Negative for dysuria or hematuria. No previous stone. MUSCULOSKELETAL: With no joint swelling, redness, or inflammation in any joint. DERMATOLOGICAL: No rashes, pruritus or skin lesion. ENDOCRINE: No polyuria, polydipsia or polyphagia. PSYCHIATRIC: Negative for anxiety, depression, or hallucinations. Other systemic review is unchanged. All the other systemic review is unchanged. PHYSICAL EXAMINATION: GENERAL: Pale, critically ill in ICU, no acute distress. VITAL SIGNS: Blood pressure has been 130/87, pulse 85, respiratory rate is 18, afebrile. HEENT: Head is atraumatic. Pupils are round and reactive. Sclerae anicteric. Conjunctivae not pale. Oral mucosa is not dry. NECK: Supple. No masses or bruits. Thyroid is palpable. Neck has no bruits. CHEST: Shows equal to thoracic percussion note being resonant in all areas. CARDIAC: Regular rhythm. No rub. No S3, S4. No parasternal heave. BACK: No tenderness or back deformities. NEUROLOGIC: Awake, alert, nonfocal. LABORATORY DATA: Labs have shown low hemoglobin 8.1, white cell count elevated at 21,000. Low potassium of 3.2. Elevated creatinine 1.2, BUN of 62. IMAGING STUDIES: Personally reviewed. LFTs have been reviewed. Iron studies are adequate. Old records reviewed. PROBLEMS: * The patient has acute renal failure. * Sepsis. * Hypotension. * Small bowel obstruction. * The patient has opioid intake. * History of hyponatremia. * Hyperlipidemia. * History of debility. * History of left hip dislocation. * Other comorbidities. PLAN: The patient is in ICU. Pressors as needed. Maintain hydration. Has been on TPN and the patient is on ____. The patient is on broad-spectrum antibiotics. Intake, output, weight, electrolytes and renal function will be monitored. Urine output will be monitored. Dilaudid can be used for pain 0.5 every 6 hours, it is absolutely necessary. Doses of medicine to be adjusted and continued followup. Replace potassium and magnesium as needed. Seen in ICU, seen several times. Labs and x-rays personally reviewed. Follow up labs ordered and discussed with other team physician. Condition is critical and guarded. TID: [id number] RECEIPT: [id number]
[2024-05-26] VITALS (45 sets, daily range): BP systolic 121–150; BP diastolic 61–87; PULSE 70–108; RESP 10–94; TEMP 97.7–98.9; O2SAT 96–98
[2024-05-26] MEDS: hydroMORPHone 0.5 MG SYG (0.5MG/0.5ML) IVP ONE (00:59)
[2024-05-26] MEDS: PoTASSium chl 10% ELIXIR 20MEQ 20 MEQ/15 ML UDCUP PO PRN (05:37)
[2024-05-26 06:17] LABS: BASOPHILS # (AUTO) 0.01 K/uL (0.00-0.20); BASOPHILS % (AUTO) 0.1 % (0.0-5.0); HEMATOCRIT 23.8 % (36-48); IMMATURE GRANULOCYTE ABSOLUTE 0.09 K/uL (0-1); LYMPHOCYTES # (AUTO) 0.5 K/uL (1.0-4.8); LYMPHOCYTES % (AUTO) 3.5 % (21.0-51.0); MEAN CORPUSCULAR HGB CONC 31.9 g/dL (32.0-36.0); MEAN CORPUSCULAR VOLUME 87.8 fL (79-99); MONOCYTES # (AUTO) 0.3 K/uL (0.1-1.0); MONOCYTES % (AUTO) 1.9 % (3.0-13.0); NEUTROPHILS # (AUTO) 14.7 K/uL (1.8-7.7); NEUTROPHILS % (AUTO) 93.9 % (40.0-77.0); PLATELET COUNT (AUTO) 304 K/uL (130-400); RED BLOOD CELL COUNT(AUTO) 2.71 MIL/uL (4.00-5.50); RED CELL DISTRIBUTION WIDTH 15.2 % (11.0-15.5); WHITE BLOOD COUNT (AUTO) 15.6 K/uL (4.8-10.8)
[2024-05-26 06:27] LABS: CREATININE 1.4 mg/dL (0.5-1.0); POTASSIUM 3.4 mmol/L (3.5-5.1)
--- NOTE | 2024-05-26 13:29 | PN ---
[facility] PROGRESS NOTE Date of Service: May 26, 2024 Time of Service: 13:26 SUBJECTIVE: [ ] This 73-year-old female with past medical history of hypertension hypothyroidism, diabetes mellitus type, history of chronic left hip pain with hip dislocation, anemia presented to the hospital secondary to abdominal pain, nausea, vomiting. Labs were notable for white count of 38.1, hemoglobin was 11.5, platelet count is 447 K, sodium is 128, potassium was 4.6, chloride is 86, creatinine is 4.7, BUN is 67, CK is 574, calcium is 10.5, glucose is 130, lactic acid is two point, troponin is negative x1. Patient underwent CT abdomen pelvis which showed small bowel obstruction. Concern for possible bilateral basal pneumonia. Patient admitted to the intensive care unit for further evaluation and medical management. Patient is seen and examined bedside, she is awake, following commands, NPO, NG tube connected to intermittent suction, discussed with the RN, 1.6 L output since last night, BP 113/65, heart rate 108, saturating 96% 2 L nasal cannula. Remains on pressor support with Levophed, getting broad-spectrum IV antibiotics during my visit. WBC trending down 20 point, hemoglobin 8.5, 26.6. BUN 62, creatinine 3.0, magnesium 1.6. Chest x-ray no acute pulmonary infiltrate seen. Follow repeat KUB. Monitor renal function in a.m. awaiting surgical recommendations to see if the patient will be taken to the operating room for exploration. 2/3 patient seen at bedside, no acute events overnight. She has had one bowel movement since admission and has been weaned off pressors. She has been afebrile, hemodynamically stable saturating 99% on 2 L nasal cannula, we will be weaned as able. WBC is stable at 21.4, similar to yesterday, hemoglobin decreased from 8.5 down to 8.1, platelets decreased from 353 down to 321, creatinine improved from 3.0 down to 1.8, potassium decreased from 3.5 down to 2.2, remainder of her labs are relatively unremarkable. With these changes in lab suggest that she was dehydrated with TERRANCE on admission. Cultures are no growth to date, we will continue with empiric antibiotics per Infectious Disease recommendations. 2/4 seen at bedside, no acute events overnight. Nursing reports one bowel movement yesterday, she has been afebrile, hemodynamically stable saturating well on room air. WBC improved from 21.4 down to 15.6, hemoglobin decreased from 8.1 down to 7.6, we will continue to trend, sodium decreased from 138 down to 135, potassium improved from 3.2 up to 3.4, creatinine improved from 1.8 down to 1.4, remainder of her labs are relatively unremarkable. Cultures are no growth to date. Patient is started on clear liquid diet, we will continue to monitor REVIEW OF SYSTEMS 12 point review of systems negative unless noted in HPI PHYSICAL EXAM GENERAL APPEARANCE: The patient is awake, alert, and oriented, in no acute cardiopulmonary distress. Appears frail NEUROLOGICAL: Cranial nerves II-XII grossly intact. Motor is 5/5 in bilateral upper and lower extremities proximal to distal. No sensory deficits. HEENT: Face is symmetric. Pupils are equal and reactive. Extraocular movements are intact. NECK: Supple. No JVD. No thyromegaly. No submental, submandibular, pre- /postauricular, occipital or supraclavicular lymphadenopathy. CHEST: Normal chest expansion. No Telemetry. LUNGS: Absence of any rales, rhonchi or any wheezing. CARDIOVASCULAR: Regular. S1 and S2 normal. No appreciable rubs, murmurs or gallops. ABDOMEN: Mildly distended, mild diffuse tenderness. : Deferred. No Hearn. EXTREMITIES: Non-edematous and not cyanotic. No clubbing. Good capillary refill. SKIN: No skin breakdown. Vital Signs (last 8hr) Date Time Temp Pulse Resp B/P (MAP) Pulse Ox O2 Delivery O2 Flow Rate FiO2 05/26/24 13:00 90 18 142/86 97 Room Air 05/26/24 12:00 96 Room Air* 0 21 05/26/24 12:00 98.4 88 22 143/61 96 Room Air 21 05/26/24 11:00 92 94 126/80 96 Room Air 05/26/24 10:00 82 14 131/75 95 Room Air 05/26/24 09:00 108 16 149/87 95 Room Air 05/26/24 08:00 98 Nasal Cannula* 2 28 05/26/24 08:00 99.0 72 10 138/78 97 Room Air 05/26/24 07:00 82 15 144/85 100 Nasal Cannula 2.0 05/26/24 06:46 74 14 130/77 100 Nasal Cannula 2.0 05/26/24 06:31 76 15 123/71 100 Nasal Cannula 2.0 05/26/24 06:16 75 11 121/73 100 Nasal Cannula 2.0 05/26/24 06:01 78 14 140/84 100 Nasal Cannula 2.0 05/26/24 05:46 77 15 146/87 100 Nasal Cannula 2.0 05/26/24 05:31 83 16 148/84 99 Nasal Cannula 2.0 LABS: Laboratory: Test 05/26/24 04:12 05/25/24 11:06 05/25/24 05:07 Range/Units White Blood Count 15.6 #H 4.8-10.8 K/uL Red Blood Count 2.71 L 4.00-5.50 MIL/uL Hemoglobin 7.6 L 12.0-16.0 g/dL Hematocrit 23.8 L 36-48 % Mean Corpuscular Volume 87.8 79-99 fL Mean Corpuscular Hemoglobin 28.0 27.0-33.0 pg Mean Corpuscular Hemoglobin Concent 31.9 L 32.0-36.0 g/dL Red Cell Distribution Width 15.2 11.0-15.5 % Platelet Count 304 130-400 K/uL Mean Platelet Volume 9.4 7.5-10.5 fL Immature Granulocyte % (Auto) 0.6 0-1 % Neutrophils (%) (Auto) 93.9 H 40.0-77.0 % Lymphocytes (%) (Auto) 3.5 L 21.0-51.0 % Monocytes (%) (Auto) 1.9 L 3.0-13.0 % Eosinophils (%) (Auto) 0.0 0.0-8.0 % Basophils (%) (Auto) 0.1 0.0-5.0 % Neutrophils # (Auto) 14.7 H 1.8-7.7 K/uL Lymphocytes # (Auto) 0.5 L 1.0-4.8 K/uL Monocytes # (Auto) 0.3 0.1-1.0 K/uL Eosinophils # (Auto) 0.00 0.00-0.70 K/uL Basophils # (Auto) 0.01 0.00-0.20 K/uL Absolute Immature Granulocyte (auto 0.09 0-1 K/uL Nucleated Red Blood Cells 0.0 0.0-0.19 % Sodium Level 135 L 136-145 mmol/L Potassium Level 3.4 L 3.5-5.1 mmol/L Chloride Level 104 101-111 mmol/L Carbon Dioxide Level 23 21-32 mmol/L Blood Urea Nitrogen 70 H 7-18 mg/dL Creatinine 1.4 H 0.5-1.0 mg/dL Glomerular Filtration Rate Calc 40 >90 mL/min Random Glucose 226 H 70-105 mg/dL Total Calcium 8.9 8.5-10.1 mg/dL Magnesium Level 2.00 1.80-2.40 mg/dL Activated Partial Thromboplast Time 42.7 H 26.3-35.5 SEC Prothrombin Time 12.2 H 9.6-11.6 SEC Prothromb Time International Ratio 1.10 0.85-1.15 Fibrinogen 477 H 180-350 mg/dL Iron Level 55 # 50-170 mcg/dL Total Iron Binding Capacity 70 L 250-450 mcg/dL Percent Iron Saturation 78.5 H 22-44 % B-Type Natriuretic Peptide 569 H 0-100 pg/mL Current Medications Medications (Trade) Dose Ordered Sig/Dionisio Route PRN Reason Start Time Stop Time Status Last Admin Dose Admin Famotidine (Pepcid 20mg Vial) 20 mg Q48H IV 05/23/24 21:00 05/23/24 19:37 DC Fat Emulsion Intravenous 250 ml @ 42 mls/hr MoWeFr@1000 IV 05/25/24 10:00 05/25/24 19:34 DC 05/25/24 09:14 42 MLS/HR Heparin Sodium (Porcine) (HEParin 5,000 UNIT VIAL) 5,000 unit Q12H SQ 05/23/24 21:00 06/22/24 20:59 05/26/24 08:33 5,000 UNIT Hydrocortisone Sodium Succinate (Solu-corTEF 100MG) 50 mg Q6H IV 05/24/24 14:00 05/25/24 10:08 DC 05/25/24 09:13 50 MG Hydrocortisone Sodium Succinate (Solu-corTEF 100MG) 50 mg Q8H IV 05/25/24 16:00 06/23/24 13:59 05/26/24 08:31 50 MG Hydromorphone HCl (DiLAUDid 0.5MG INJ) 0.2 mg Q6H PRN IVP SEVERE PAIN (7-10) 05/23/24 13:30 05/24/24 01:23 DC 05/24/24 00:08 0.2 MG Hydromorphone HCl (DiLAUDid 0.5MG INJ) 0.3 mg Q4HPRN PRN IVP SEVERE PAIN (7-10) 05/24/24 01:30 05/28/24 13:29 05/26/24 09:34 0.3 MG Hydromorphone HCl (DiLAUDid 0.5MG INJ) 0.5 mg Q6H PRN IVP SEVERE PAIN (7-10) 05/23/24 13:30 05/23/24 13:18 DC Linezolid 300 ml @ 150 mls/hr Q12H IV 05/23/24 11:30 06/02/24 11:29 05/26/24 11:32 150 MLS/HR Magnesium Sulfate 50 ml @ 0 mls/hr PROTOCOL PRN IV ad 05/23/24 17:00 06/22/24 16:59 05/24/24 08:58 25 MLS/HR Meropenem (Merrem) 1 gm Q24H IVPB 05/23/24 14:00 06/02/24 13:59 05/25/24 14:50 1 GM Methylnaltrexone [place] (reLIStor) 12 mg DAILY SQ 05/25/24 09:00 06/24/24 08:59 05/26/24 10:38 12 MG Norepinephrine 250 ml @ 0 mls/hr PROTOCOL IV 05/23/24 16:00 05/24/24 07:36 DC 05/24/24 01:40 51 MLS/HR Norepinephrine Bitartrate 250 ml @ 0 mls/hr PROTOCOL IV 05/24/24 08:00 06/23/24 07:59 Norepinephrine Bitartrate (Norepineph 16 Mg/250ml NS Premix) Protocol PROTOCOL IV 05/24/24 07:30 05/24/24 07:39 DC Pantoprazole Sodium (PROTonix 40MG INJ) 40 mg DAILY IVP 05/24/24 09:00 06/23/24 08:59 05/26/24 08:31 40 MG Pharmacy Profile Note (Lace Assessment) 1 each AD MISC 05/23/24 13:30 05/23/24 13:25 DC Potassium Chloride 100 ml @ 100 mls/hr AD PRN IV POTASSIUM PROTOCOL 05/25/24 19:30 06/24/24 19:29 Potassium Chloride (K-Dur/Klor-Con 20meq) 20 meq AD PRN PO POTASSIUM PROTOCOL 05/25/24 19:30 06/24/24 19:29 Potassium Chloride (KCl 10% Elixir 20meq/15ml) 20 meq AD PRN PO POTASSIUM PROTOCOL 05/25/24 19:30 06/24/24 19:29 05/26/24 05:37 20 MEQ Sodium Chloride 500 ml @ 0 mls/hr Q0M IV 05/24/24 10:00 06/23/24 09:59 05/24/24 09:54 1,200 MLS/HR Sodium Chloride 1,000 ml @ 125 mls/hr Q8H IV 05/23/24 13:30 06/22/24 13:29 05/26/24 12:26 125 MLS/HR Wound Care/ Dressing Products (Venelex Ointment Packet) 1 gm BID TP 05/24/24 21:00 05/25/24 07:07 DC 05/24/24 20:09 1 GM Wound Care/ Dressing Products (Venelex Ointment) 1 APPL BID TP 05/25/24 09:00 06/24/24 08:59 05/26/24 08:31 1 GM DIAGNOSTICS / RADIOLOGY: [ ] ASSESSMENT: Severe sepsis, resolved POA Hypotension resolved POA Small bowel obstruction, ruled out POA Opiate induced ileus Medical non-compliance UTI, ruled out POA Dehydration, resolved Acute kidney injury, improving POA Hyponatremia, improving Mild CK elevation Hyperchloremia History of chronic opioid use Frailty Debility History of chronic left hip dislocation POA PLAN: - patient remains admitted to the ICU -Start clear liquid diet -Continue methylnatrexone -Continue TPN -Continue broad spectrum antibiotics -ID consulted, appreciate recommendations -reference to acute kidney injury. Continue supportive care with IV fluids -Nephrology consultation requested, follow input recommendation -critical care input noted and appreciated -patient will be on Dilaudid for pain control -further orders per hospitalization course. Disposition: Pending improvement in clinical status Greater than 35 minutes ICU time spent in care of patient MARCO JOLLY MD May 26, 2024 13:29
--- NOTE | 2024-05-26 14:33 | PN ---
[facility] PROGRESS NOTE Date Patient Seen: May 26, 2024 Time of Visit: 14:33 Supervising Physician: Dr. Alarcon Primary Care Physician: Chapincito Guardado MD Outpatient Specialists: Inpatient Consults: LEATHA Farrell (Critical care team) , Dr Augustus Ferguson, Dr Eduardo PROBLEM LIST: Acute hypoxic respiratory failure, POA septic shock POA , no responsive to IVF, Requiring Levophed, resolving Suspected CAP, POA Small bowel obstruction POA Acute complicated cystitis, POA Hematuria POA Severe Dehydration Acute kidney injury POA Electrolyte derangement POA ( Hyponatremia, Hyperchloremia) History of chronic opioid use Frailty Debility History of chronic left hip dislocation, Opiate induced Illeus, Hypothyroidism, multiple recent hospitalizations with long hospital stay, opiate overdose w/ morphine, and fibromyalgia, Osteoarthritis , spinal cord stimulation (SCS) INTERVAL HISTORY: Patient is awake alert and oriented x3. As per RN she just turned off Levophed drip. Blood pressure 144/93 with a heart rate in the 80s respiratory rate of 20 saturating 98% with 2 L via nasal cannula and afebrile. Patient had large bowel movement overnight. Per General surgery patient can start clear liquid diet no plans for OR at this time. She continues on TPN. If patient tolerates chloride liquid diet we can stop TPN and start p.o. feeding. Urine output 1.7 L in the last 24 hours with a balance of +1.9 L we will stop current IV fluids and give a one time dose of Lasix 20 mg IV push. On laboratory WBCs at 21.4 likely reactive from high-dose hydrocortisone that was started for refractory shock H&H was 8.1/25.8 seems to be slowly trending down, platelet count 321 K. On chemistries sodium 138 potassium 3.2 covered per protocol BUN 62 creatinine of 1.8 improved from yesterday which was 3.0 GFR of 29 and glucose of 212 mg/dL total calcium 8.1 BNP 569. No growth two blood cultures and no growth to urine culture. 05/26/2024: At the time of my evaluation, the patient was lying in bed. The staff nurse reports no overnight events. The patient is awake, alert and oriented x3. Currently, the patient is on room air and maintaining optimal oxygen saturation. On the monitor, she is hemodynamically stable. The patient is currently on a clear liquid diet and denies any nausea vomiting or diarrhea. Patient denies any abdominal pain and is so far tolerating her feedings. Last bowel movement was reported on 05/25/2024: No other complaint. REVIEW OF SYSTEMS: General:reports generalized body pain. Neurological: No fainting episodes or seizures. HEENT: No nasal congestion or nasal secretion. Respiratory: No cough, shortness of breath, or wheezing Cardiac: No chest pain or palpitations. Gastrointestinal:yes for nausea and much output to ng tube . Genitourinary: No dysuria hematuria. Skin: No rashes or lesions. Hematological: No bruises or bleeding. Musculoskeletal: reports chronic pain to hands and fingers, back and hip Psychiatric: No depression or panic attacks. PHYSICAL EXAM: GENERAL: Mental status improving weak, awake oriented x 3 GCS 15 HEENT: Sclera non icteric, moist mucosa NECK: Supple, no JVD, trachea midline LUNGS: Clear breath sounds bilaterally. No wheezes HEART: Regular rate and rhythm. Normal S1 and S2, without murmurs ABD: abdomen distended but soft non tender, Bowel sounds hypoactive EXT: No clubbing cyanosis or edema NEURO: AAOx3 no focal weakness Vital Signs (last 8hr) Date Time Temp Pulse Resp B/P (MAP) Pulse Ox O2 Delivery O2 Flow Rate FiO2 05/26/24 13:00 90 18 142/86 97 Room Air 05/26/24 12:00 96 Room Air* 0 21 05/26/24 12:00 98.4 88 22 143/61 96 Room Air 21 05/26/24 11:00 92 94 126/80 96 Room Air 05/26/24 10:00 82 14 131/75 95 Room Air 05/26/24 09:00 108 16 149/87 95 Room Air 05/26/24 08:00 98 Nasal Cannula* 2 28 05/26/24 08:00 99.0 72 10 138/78 97 Room Air 05/26/24 07:00 82 15 144/85 100 Nasal Cannula 2.0 05/26/24 06:46 74 14 130/77 100 Nasal Cannula 2.0 LABS: Hematology Labs: Test 05/26/24 04:12 Range/Units White Blood Count 15.6 #H 4.8-10.8 K/uL Red Blood Count 2.71 L 4.00-5.50 MIL/uL Hemoglobin 7.6 L 12.0-16.0 g/dL Hematocrit 23.8 L 36-48 % Mean Corpuscular Volume 87.8 79-99 fL Mean Corpuscular Hemoglobin 28.0 27.0-33.0 pg Mean Corpuscular Hemoglobin Concent 31.9 L 32.0-36.0 g/dL Red Cell Distribution Width 15.2 11.0-15.5 % Platelet Count 304 130-400 K/uL Mean Platelet Volume 9.4 7.5-10.5 fL Immature Granulocyte % (Auto) 0.6 0-1 % Neutrophils (%) (Auto) 93.9 H 40.0-77.0 % Lymphocytes (%) (Auto) 3.5 L 21.0-51.0 % Monocytes (%) (Auto) 1.9 L 3.0-13.0 % Eosinophils (%) (Auto) 0.0 0.0-8.0 % Basophils (%) (Auto) 0.1 0.0-5.0 % Neutrophils # (Auto) 14.7 H 1.8-7.7 K/uL Lymphocytes # (Auto) 0.5 L 1.0-4.8 K/uL Monocytes # (Auto) 0.3 0.1-1.0 K/uL Eosinophils # (Auto) 0.00 0.00-0.70 K/uL Basophils # (Auto) 0.01 0.00-0.20 K/uL Absolute Immature Granulocyte (auto 0.09 0-1 K/uL Nucleated Red Blood Cells 0.0 0.0-0.19 % Chemistry Labs: Test 05/26/24 04:12 05/25/24 05:07 Range/Units Sodium Level 135 L 136-145 mmol/L Potassium Level 3.4 L 3.5-5.1 mmol/L Chloride Level 104 101-111 mmol/L Carbon Dioxide Level 23 21-32 mmol/L Blood Urea Nitrogen 70 H 7-18 mg/dL Creatinine 1.4 H 0.5-1.0 mg/dL Glomerular Filtration Rate Calc 40 >90 mL/min Random Glucose 226 H 70-105 mg/dL Total Calcium 8.9 8.5-10.1 mg/dL Magnesium Level 2.00 1.80-2.40 mg/dL Iron Level 55 # 50-170 mcg/dL Total Iron Binding Capacity 70 L 250-450 mcg/dL Percent Iron Saturation 78.5 H 22-44 % B-Type Natriuretic Peptide 569 H 0-100 pg/mL Coagulation Labs: Test 05/25/24 11:06 05/25/24 05:07 Range/Units Activated Partial Thromboplast Time 42.7 H 26.3-35.5 SEC Prothrombin Time 12.2 H 9.6-11.6 SEC Prothromb Time International Ratio 1.10 0.85-1.15 Fibrinogen 477 H 180-350 mg/dL DIAGNOSTICS / RADIOLOGY RESULTS: [ ] PLAN Continue TPN at 75ml/hr Start clear liquid diet per General surgery recommendations If patient tolerates clear liquid diet we can stop TPN CBC CMP PT INR in am Panculture Flu and COVID bith negative Trend lactic acid -normalized CRP Follow Blood cultures Continue Meropenem and Zyvox hydrocortisone 50 mg q.6 hours IV for vasopressor dependent, wean Relistor for opioid induced constipation 05/26/2024: For now, going to continue current management for the patient. The patient will continue on room air and we will monitor the oxygenation trend. She will also remain on the tele monitor looking for any arrhythmic changes. Per the general surgeon, the patient can continue one clear liquid diet and we will continue to monitor. She is currently receiving Relistor and we will monitor bowel activity. The patient continues on Merrem and Zyvox, blood and urine cultures are negative. WBC is still elevated, we will follow the trend. I am going to request a CT of the chest without contrast due to a right-sided pulmonary nodule seen. We will monitor the patient's progress and response to management. I will downgrade the patient to Med surg. We will continue to provide general supportive care, GI and DVT prophylaxis. Further orders per attending MD and hospital course. NEURO: Minimize central acting medications as possible. Fall Precautions. Well lighted room through the day and minimize interruptions through the night to prevent acute delirium. PULMONARY: Supplemental 02 as needed Titrate Fio2 to keep Spo2 > or = 90% DuoNebs and CPT as needed IS hourly while awake for pulmonary hygiene Out of bed to chair as tolerated VAP Bundle CARDIOVASCULAR: Follow hemodynamics. Titrate vasopressor to keep MAP >65 or systolic blood pressure >95mmHg continuous cardiac monitoring Drips: LINES: PIV CVC to RT IJ GI & NUTRITION: Continue nutritional support Aspirations precautions Prokinetic agents and laxatives as needed Consult general surgery for eval and recs KIDNEYS & ELECTROLYTES: Strict monitoring of intake and output Daily weights Avoid nephrotoxic agents Monitor electrolytes and replace as needed Goal urine output of 30mL/hr or 0.5mL/kg/hr ENDOCRINE: Maintain blood glucose between 100-180 at all times. Insulin sliding scale for blood glucose management INFECTIOUS DISEASE: Trend temperature. Clarke-culture if febrile. Micro: [ ] Influenza (A and B)- negative COVID-19 negative blood culture- urine culture- respiratory culture- Antibiotics: Meropenem and Zyvox HEMATOLOGY & COAGULATION: Monitor H&H. Keep Hgb > 7 Transfuse 1 unit of PRBC for Hgb < 7 Transfuse 1 pack of platelets of platelets < 20, 000 Watch for any signs and symptoms of bleeding SKIN: Pressure ulcer prevention per facility protocol Rehab: PT/OT Prophylaxis: GI: Protonix DVT: Heparin SQ Code Status: Full Resuscitation Disposition: ICU Other: Total patient care time exceeds 45 minutes excluding all procedures. Case was discussed and seen with my supervising physician. The above plan was formulated and agreed upon. JOSE SPENCER NP May 26, 2024 14:33
--- NOTE | 2024-05-26 14:42 | PN ---
NEPHROLOGY PROGRESS NOTE Date/Time Patient Seen: May 26, 2024 Reason for Consultation: 14:37 SUBJECTIVE: This is a 73-year-old female with past medical history of cervical cancer with hysterectomy, obesity, hypertension, hypothyroidism, fibromyalgia, chronic left hip with multiple surgeries, anemia She presented to the hospital secondary to abdominal pain, nausea, vomiting. The patient has small-bowel obstruction and pneumonia detected by CT scan. The patient is in ICU, critically ill, has been on pressors off and on with other comorbidities. The patient has acute kidney injury. We has been consulted for renal failure. Renal function is improving Electrolytes are stable. Hearn catheter is in place. She was seen in the ICU, in no acute distress No family at the bedside Condition is critical and guarded REVIEW OF SYSTEMS: GENERAL: Negative for any nausea, vomiting, fevers, chills, or weight loss. NEUROLOGIC: Negative for any blurry vision, blind spots, double vision, facial asymmetry, dysphagia, dysarthria, hemiparesis, hemisensory deficits, vertigo, ataxia. HEENT: Negative for any head trauma, neck trauma, neck stiffness, photophobia, phonophobia, sinusitis, rhinitis. CARDIAC: Negative for any chest pain, dyspnea on exertion, paroxysmal nocturnal dyspnea, peripheral edema. PULMONARY: Negative for any shortness of breath, wheezing, COPD, or TB exposure. GASTROINTESTINAL: Negative for any abdominal pain, nausea, vomiting, bright red blood per rectum, melena. GENITOURINARY: Negative for any dysuria, hematuria, incontinence. INTEGUMENTARY: Negative for any rashes, cuts, insect bites. RHEUMATOLOGIC: Negative for any joint pains, photosensitive rashes, history of vasculitis or kidney problems. HEMATOLOGIC: Negative for any abnormal bruising, frequent infections or bleeding. Vital Signs (last 8hr) Date Time Temp Pulse Resp B/P (MAP) Pulse Ox O2 Delivery O2 Flow Rate FiO2 05/26/24 13:00 90 18 142/86 97 Room Air 05/26/24 12:00 96 Room Air* 0 21 05/26/24 12:00 98.4 88 22 143/61 96 Room Air 21 05/26/24 11:00 92 94 126/80 96 Room Air 05/26/24 10:00 82 14 131/75 95 Room Air 05/26/24 09:00 108 16 149/87 95 Room Air 05/26/24 08:00 98 Nasal Cannula* 2 28 05/26/24 08:00 99.0 72 10 138/78 97 Room Air 05/26/24 07:00 82 15 144/85 100 Nasal Cannula 2.0 05/26/24 06:46 74 14 130/77 100 Nasal Cannula 2.0 PHYSICAL EXAM: GENERAL: Alert and oriented x 3. No acute distress. Well-nourished. EYES: EOMI. Anicteric. HENT: Moist mucous membranes. No scleral icterus. No cervical lymphadenopathy. LUNGS: Clear to auscultation bilaterally. No accessory muscle use. CARDIOVASCULAR: Regular rate and rhythm. No murmur. No JVD. ABDOMEN: Soft, non-tender and non-distended. No palpable masses. EXTREMITIES: No edema. Non-tender.?SKIN: No rashes or lesions. Warm. NEUROLOGIC: No focal neurological deficits. CN II-XII grossly intact, but not individually tested. PSYCHIATRIC: Cooperative. Appropriate mood and affect. Current Medications Medications (Trade) Dose Ordered Sig/Dionisio Route PRN Reason Start Time Stop Time Status Last Admin Dose Admin Famotidine (Pepcid 20mg Vial) 20 mg Q48H IV 05/23/24 21:00 05/23/24 19:37 DC Fat Emulsion Intravenous 250 ml @ 42 mls/hr MoWeFr@1000 IV 05/25/24 10:00 05/25/24 19:34 DC 05/25/24 09:14 42 MLS/HR Heparin Sodium (Porcine) (HEParin 5,000 UNIT VIAL) 5,000 unit Q12H SQ 05/23/24 21:00 06/22/24 20:59 05/26/24 08:33 5,000 UNIT Hydrocortisone Sodium Succinate (Solu-corTEF 100MG) 50 mg Q6H IV 05/24/24 14:00 05/25/24 10:08 DC 05/25/24 09:13 50 MG Hydrocortisone Sodium Succinate (Solu-corTEF 100MG) 50 mg Q8H IV 05/25/24 16:00 06/23/24 13:59 05/26/24 08:31 50 MG Hydromorphone HCl (DiLAUDid 0.5MG INJ) 0.2 mg Q6H PRN IVP SEVERE PAIN (7-10) 05/23/24 13:30 05/24/24 01:23 DC 05/24/24 00:08 0.2 MG Hydromorphone HCl (DiLAUDid 0.5MG INJ) 0.3 mg Q4HPRN PRN IVP SEVERE PAIN (7-10) 05/24/24 01:30 05/28/24 13:29 05/26/24 13:43 0.3 MG Hydromorphone HCl (DiLAUDid 0.5MG INJ) 0.5 mg Q6H PRN IVP SEVERE PAIN (7-10) 05/23/24 13:30 05/23/24 13:18 DC Insulin Human Regular (humuLIN R 100 UNIT/ML 3ML) INSULIN SLIDING SCAL... ACHS SQ 05/26/24 16:30 06/25/24 16:29 Linezolid 300 ml @ 150 mls/hr Q12H IV 05/23/24 11:30 06/02/24 11:29 05/26/24 11:32 150 MLS/HR Magnesium Sulfate 50 ml @ 0 mls/hr PROTOCOL PRN IV ad 05/23/24 17:00 06/22/24 16:59 05/24/24 08:58 25 MLS/HR Meropenem (Merrem) 1 gm Q24H IVPB 05/23/24 14:00 06/02/24 13:59 05/25/24 14:50 1 GM Methylnaltrexone Trimble (reLIStor) 12 mg DAILY SQ 05/25/24 09:00 06/24/24 08:59 05/26/24 10:38 12 MG Norepinephrine 250 ml @ 0 mls/hr PROTOCOL IV 05/23/24 16:00 05/24/24 07:36 DC 05/24/24 01:40 51 MLS/HR Norepinephrine Bitartrate 250 ml @ 0 mls/hr PROTOCOL IV 05/24/24 08:00 06/23/24 07:59 Norepinephrine Bitartrate (Norepineph 16 Mg/250ml NS Premix) Protocol PROTOCOL IV 05/24/24 07:30 05/24/24 07:39 DC Pantoprazole Sodium (PROTonix 40MG INJ) 40 mg DAILY IVP 05/24/24 09:00 06/23/24 08:59 05/26/24 08:31 40 MG Pharmacy Profile Note (Lace Assessment) 1 each AD MISC 05/23/24 13:30 05/23/24 13:25 DC Potassium Chloride 100 ml @ 100 mls/hr AD PRN IV POTASSIUM PROTOCOL 05/25/24 19:30 06/24/24 19:29 Potassium Chloride (K-Dur/Klor-Con 20meq) 20 meq AD PRN PO POTASSIUM PROTOCOL 05/25/24 19:30 06/24/24 19:29 Potassium Chloride (KCl 10% Elixir 20meq/15ml) 20 meq AD PRN PO POTASSIUM PROTOCOL 05/25/24 19:30 06/24/24 19:29 05/26/24 05:37 20 MEQ Sodium Chloride 500 ml @ 0 mls/hr Q0M IV 05/24/24 10:00 06/23/24 09:59 05/24/24 09:54 1,200 MLS/HR Sodium Chloride 1,000 ml @ 125 mls/hr Q8H IV 05/23/24 13:30 06/22/24 13:29 05/26/24 12:26 125 MLS/HR Wound Care/ Dressing Products (Venelex Ointment Packet) 1 gm BID TP 05/24/24 21:00 05/25/24 07:07 DC 05/24/24 20:09 1 GM Wound Care/ Dressing Products (Venelex Ointment) 1 APPL BID TP 05/25/24 09:00 06/24/24 08:59 05/26/24 08:31 1 GM LABORATORY: [ ] Hematology Labs: Test 05/26/24 04:12 Range/Units White Blood Count 15.6 #H 4.8-10.8 K/uL Red Blood Count 2.71 L 4.00-5.50 MIL/uL Hemoglobin 7.6 L 12.0-16.0 g/dL Hematocrit 23.8 L 36-48 % Mean Corpuscular Volume 87.8 79-99 fL Mean Corpuscular Hemoglobin 28.0 27.0-33.0 pg Mean Corpuscular Hemoglobin Concent 31.9 L 32.0-36.0 g/dL Red Cell Distribution Width 15.2 11.0-15.5 % Platelet Count 304 130-400 K/uL Mean Platelet Volume 9.4 7.5-10.5 fL Immature Granulocyte % (Auto) 0.6 0-1 % Neutrophils (%) (Auto) 93.9 H 40.0-77.0 % Lymphocytes (%) (Auto) 3.5 L 21.0-51.0 % Monocytes (%) (Auto) 1.9 L 3.0-13.0 % Eosinophils (%) (Auto) 0.0 0.0-8.0 % Basophils (%) (Auto) 0.1 0.0-5.0 % Neutrophils # (Auto) 14.7 H 1.8-7.7 K/uL Lymphocytes # (Auto) 0.5 L 1.0-4.8 K/uL Monocytes # (Auto) 0.3 0.1-1.0 K/uL Eosinophils # (Auto) 0.00 0.00-0.70 K/uL Basophils # (Auto) 0.01 0.00-0.20 K/uL Absolute Immature Granulocyte (auto 0.09 0-1 K/uL Nucleated Red Blood Cells 0.0 0.0-0.19 % Chemistry Labs: Test 05/26/24 04:12 05/25/24 05:07 Range/Units Sodium Level 135 L 136-145 mmol/L Potassium Level 3.4 L 3.5-5.1 mmol/L Chloride Level 104 101-111 mmol/L Carbon Dioxide Level 23 21-32 mmol/L Blood Urea Nitrogen 70 H 7-18 mg/dL Creatinine 1.4 H 0.5-1.0 mg/dL Glomerular Filtration Rate Calc 40 >90 mL/min Random Glucose 226 H 70-105 mg/dL Total Calcium 8.9 8.5-10.1 mg/dL Magnesium Level 2.00 1.80-2.40 mg/dL Iron Level 55 # 50-170 mcg/dL Total Iron Binding Capacity 70 L 250-450 mcg/dL Percent Iron Saturation 78.5 H 22-44 % B-Type Natriuretic Peptide 569 H 0-100 pg/mL Coagulation Labs: Test 05/25/24 11:06 05/25/24 05:07 Range/Units Activated Partial Thromboplast Time 42.7 H 26.3-35.5 SEC Prothrombin Time 12.2 H 9.6-11.6 SEC Prothromb Time International Ratio 1.10 0.85-1.15 Fibrinogen 477 H 180-350 mg/dL DIAGNOSTICS / RADIOLOGY: REASON: duspected pneumonia ORDERING PHYSICIAN: DEJAN STOREY PROCEDURE: CXR1VW - CHEST 1VW Exam Type: CHEST 1VW Clinical Information: duspected pneumonia Comparison: None Findings: Pulmonary pattern is as before. No worrisome interval changes have taken place. Impression: Stable exam. DICTATED BY: NGOC ELIZABETH MD DATE: 05/25/24 1549 REASON: CENTRAL LINE PLACEMENT ORDERING PHYSICIAN: SAVANNA GRAF MD PROCEDURE: CXR1VW - CHEST 1VW CHEST 1VW HISTORY: Right IJ line placement COMPARISON: 05/23/2024 FINDINGS: A frontal projection of the chest was obtained. No acute pulmonary infiltrates is seen. Prominent interstitial markings are seen. There may be a hiatal hernia. The heart is borderline enlarged. All the lines and tubes are again seen in place. No evidence of aortic calcification is seen. IMPRESSION: 1. No acute pulmonary infiltrate is seen. DICTATED BY: YOVANNY BUTTERFIELD MD DATE: 05/23/24 1609 REASON: NG tube insertion, Please verify placement ORDERING PHYSICIAN: LINDSEY FRAIRE MD PROCEDURE: ABD 1VW - ABD 1VW Exam Type: ABD 1VW Clinical Information: NG tube insertion, Please verify placement Comparison: None Findings and impression: Nasogastric tube tip in the distal esophagus. Consider advancing. DICTATED BY: NGOC ELIZABETH MD DATE: 05/23/24 1426 REASON: abd distension , sepsis ORDERING PHYSICIAN: SAVANNA GRAF MD PROCEDURE: ABD PEL WO - CT ABDOMEN/PELVIS W/O CONTRAST Exam Type: CT ABDOMEN/PELVIS W/O CONTRAST Clinical Information: abd distension , sepsis Comparison: None CT Dose Index (CTDI): 10.20 mGy Dose Length Product (DLP): 530.00 total mGy-cm PROTOCOL: Routine noncontrast helical scanning of the abdomen and pelvis was performed at 5mm collimation. Findings: No evidence of nephro or ureterolithiasis is found. No hydronephrosis or ureteral dilatation is seen. Bilateral basal pneumonic infiltrates. Follow-up is advised. The stomach is distended. The spleen is unremarkable. It is not enlarged. The pancreas shows normal anatomy. It is not fatty replaced. It shows no lesions. The pancreatic duct is not dilated. The gallbladder is unremarkable. It shows no cholelithiasis. The gallbladder wall is normal in thickness. There is no pericholecystic fluid. The is no acute or chronic inflammation noted. The adrenal glands are unremarkable. There is no enlargement. No lesions are noted. The liver is unremarkable. It shows no focal masses. The appendix is unremarkable. It shows no evidence of inflammation. No appendicolith is seen. Dilatation of multiple small bowel loops is seen with distal transition point consistent with distal small bowel obstruction. The colon is unremarkable. The urinary bladder is unremarkable. There is no wall thickening to suggest tumor or inflammation. There are no intraluminal calculi. There are no diverticula. There is no evidence of chronic bladder outlet obstruction. There is no evidence of urinary bladder distention to suggest urinary retention. The other pelvic structures are unremarkable. Status post bilateral hip replacement with cephalad dislocation of the left femoral component. IMPRESSION: Small bowel obstruction. Bilateral basal pneumonia. This study was performed using dose reduction techniques to include automated exposure control and/or adjustment of the mA and/or kV according to patient size. DICTATED BY: NGOC ELIZABETH MD DATE: 05/23/24 1156 REASON: DISTENDED ABD ORDERING PHYSICIAN: SAVANNA GRAF MD PROCEDURE: CXR1VW - CHEST 1VW Exam Type: CHEST 1VW Clinical Information: DISTENDED ABD Comparison: None Findings: The lungs are clear of infiltrates. The heart is normal in size. The bony and soft tissue structures of the chest are unremarkable. Impression: Clear lungs. DICTATED BY: NGOC ELIZABETH MD DATE: 05/23/24 0949 REASON: DISTENDED ABD ORDERING PHYSICIAN: SAVANNA GRAF MD PROCEDURE: ABD 1VW - ABD 1VW Exam Type: ABD 1VW Clinical Information: DISTENDED ABD Comparison: None Findings: Abdomen demonstrates no evidence of pathologic calcification or soft tissue mass. There are no radiopacities to suggest calculous disease. The intestinal gas pattern is within normal limits without evidence of dilatation to suggest obstruction or adynamic ileus. Status post bilateral hip replacement with superior displacement of the femoral from the acetabular component on the left side. Postoperative changes lumbar spine. IMPRESSION: Normal abdomen. DICTATED BY: NGOC ELIZABETH MD DATE: 05/23/24 0978 ASSESSMENT: Anemia Acute on chronic renal failure Hypotension Small-bowel obstruction Opiate induced ileus Medical noncompliance UTI Dehydration Hyponatremia Hypothyroidism Fibromyalgia Depression PLAN: Labs, diagnostic, radiologic exams reviewed and interpreted by myself and supervising physician. We have reviewed external records in detail Require close monitoring of renal function and electrolytes Order CBC, CMP, and electrolytes in am Continue with antibiotics Renal diabetic diet BiPAP as necessary, for respiratory distress IV pressors as needed Monitor blood pressure adjust medication doses as needed Avoid hypotensive episodes May use Dilaudid 0.5 mg IV every 6 hours as needed for severe pain Monitor blood sugars Strict intake, output, and daily weight should be monitored Please renally adjust medications Avoid nephrotoxic and nonsteroidal drugs Avoid contrast if possible Will continue to monitor renal function, anemia, electrolytes Treatment plan discussed with patient Questions were answered We have discussed with the other team physicians in detail about the care plan We will continue to monitor the patient closely Total critical care time spent with patient, nursing staff, critical care team over 35 minutes ATTESTATION BY PHYSICIAN I have seen and examined the patient. I reviewed the documentation, medical decision making, and treatment plan as noted by the mid-level provider above. I agree with the findings and plan of care. GERI LANDRUM MD, [facility] May 26, 2024 14:42
--- NOTE | 2024-05-26 16:07 | NUR ---
[facility] Consult: Patient assessed by wound healing team. See wound assessment. Assessment and recommendations provided to primary nurse. Education provided. Addendum: 05/29/24 at 0912 by FOX BATEMAN RN RN/ Amended: Links added.
[2024-05-26] MEDS: INSULIN humuLIN R 100 UNIT/ML 3ML SQ SCH (16:30)
--- NOTE | 2024-05-26 17:18 | PN ---
GENERAL SURGERY PROGRESS NOTE DATE OF SERVICE: May 26, 2024 TIME OF SERVICE: 17:17 PROBLEM LISTS: [ ] INTERVAL HISTORY: [ ] PHYSICAL EXAMINATION: GENERAL: [Patient is lying comfortably in bed, not in any obvious distress.] Wasted HEAD: [Normal with no signs of head trauma.] EYES: [Not pale not jaundiced afebrile to touch.] ENT: [ Normal.] NECK: [Supple,no tenderness,no lymphadenopathy,no masses,no thyromegaly ,no bruits, no JVD.] LUNGS: [Clear breath sounds bilaterally. No wheezes, rales, or rhonchi.] HEART: [Regular rate and rhythm. Normal S1 and S2, without murmurs, rub or gallop.] ABD: [Bowel sounds present,soft, distended nontender : [Normal, no suprapubic tenderness.] LYMPH: [No lymphadenopathy noted.] EXT: [ Warm soft, non tender.] SKIN: [ No rashes or lesions.] NEURO: [ Awake Alert and oriented x3.] LABORATORY: [ ] Hematology Labs: Test 05/26/24 04:12 Range/Units White Blood Count 15.6 #H 4.8-10.8 K/uL Red Blood Count 2.71 L 4.00-5.50 MIL/uL Hemoglobin 7.6 L 12.0-16.0 g/dL Hematocrit 23.8 L 36-48 % Mean Corpuscular Volume 87.8 79-99 fL Mean Corpuscular Hemoglobin 28.0 27.0-33.0 pg Mean Corpuscular Hemoglobin Concent 31.9 L 32.0-36.0 g/dL Red Cell Distribution Width 15.2 11.0-15.5 % Platelet Count 304 130-400 K/uL Mean Platelet Volume 9.4 7.5-10.5 fL Immature Granulocyte % (Auto) 0.6 0-1 % Neutrophils (%) (Auto) 93.9 H 40.0-77.0 % Lymphocytes (%) (Auto) 3.5 L 21.0-51.0 % Monocytes (%) (Auto) 1.9 L 3.0-13.0 % Eosinophils (%) (Auto) 0.0 0.0-8.0 % Basophils (%) (Auto) 0.1 0.0-5.0 % Neutrophils # (Auto) 14.7 H 1.8-7.7 K/uL Lymphocytes # (Auto) 0.5 L 1.0-4.8 K/uL Monocytes # (Auto) 0.3 0.1-1.0 K/uL Eosinophils # (Auto) 0.00 0.00-0.70 K/uL Basophils # (Auto) 0.01 0.00-0.20 K/uL Absolute Immature Granulocyte (auto 0.09 0-1 K/uL Nucleated Red Blood Cells 0.0 0.0-0.19 % Chemistry Labs: Test 05/26/24 16:57 05/26/24 04:12 05/25/24 05:07 Range/Units Whole Blood Glucose 113 H 70-110 MG/DL Sodium Level 135 L 136-145 mmol/L Potassium Level 3.4 L 3.5-5.1 mmol/L Chloride Level 104 101-111 mmol/L Carbon Dioxide Level 23 21-32 mmol/L Blood Urea Nitrogen 70 H 7-18 mg/dL Creatinine 1.4 H 0.5-1.0 mg/dL Glomerular Filtration Rate Calc 40 >90 mL/min Random Glucose 226 H 70-105 mg/dL Total Calcium 8.9 8.5-10.1 mg/dL Magnesium Level 2.00 1.80-2.40 mg/dL Iron Level 55 # 50-170 mcg/dL Total Iron Binding Capacity 70 L 250-450 mcg/dL Percent Iron Saturation 78.5 H 22-44 % B-Type Natriuretic Peptide 569 H 0-100 pg/mL Coagulation Labs: Test 05/25/24 11:06 05/25/24 05:07 Range/Units Activated Partial Thromboplast Time 42.7 H 26.3-35.5 SEC Prothrombin Time 12.2 H 9.6-11.6 SEC Prothromb Time International Ratio 1.10 0.85-1.15 Fibrinogen 477 H 180-350 mg/dL DIAGNOSTICS / RADIOLOGY: [Copy/Paste Echos/Imaging Report here] ASSESSMENT: [] Abdominal pain SBO Partial and recurrent Chronic PLAN: [] She wants to wait on the surgery for now continue treatment for UTI ELSA DA SILVA MD May 26, 2024 17:18
--- NOTE | 2024-05-26 17:18 | NUR ---
CM NOTE: MORIS MILLER CM SPOKE TO EMRE DARIO, VERBALIZED PER JAMES UNABLE TO ASSIST PT AT THIS TIME D/T PT HX OF NON-COMPLIANT AND FREQUENT NEED FOR PAIN MEDICATIONS. JAMES WILL COME AND TALK TO PATIENT IN THE MORNING. CM PENDING TO SEE PT TOMORROW ONCE JAMES SPEAK TO PT TO SEE IF PT WILL BE AGREEABLE FOR SNF INSTEAD. DR INIGUEZ MADE AWARE, AGREEABLE FOR SNF, PT CURRENTLY PENDING PICC VS MIDLINE PLACEMENT, THEN PT TO DOWNGRADE. DR JOLLY MADE AWARE VIA SECURE TEXT. DCP HOME VS SNF. CM TO CONTINUE TO FOLLOW UP. Addendum: 05/26/24 at 1720 by SLADE LEE LVN Amended: Links added.
--- NOTE | 2024-05-26 21:23 | NUR ---
CALLED NURSE AND ADVISED HIM TO BRING NURSE DOWN WHEN READY JUST TO GIVE US A CALL WHEN COMING DOWN
[2024-05-27] VITALS (13 sets, daily range): BP systolic 111–152; BP diastolic 67–93; PULSE 60–87; RESP 10–20; TEMP 97.8–98.1; O2SAT 97–98
[2024-05-27 04:18] LABS: BASOPHILS # (AUTO) 0.02 K/uL (0.00-0.20); BASOPHILS % (AUTO) 0.1 % (0.0-5.0); HEMATOCRIT 26.2 % (36-48); IMMATURE GRANULOCYTE ABSOLUTE 0.15 K/uL (0-1); LYMPHOCYTES # (AUTO) 0.8 K/uL (1.0-4.8); LYMPHOCYTES % (AUTO) 5.1 % (21.0-51.0); MEAN CORPUSCULAR HEMOGLOBIN 28.1 pg (27.0-33.0); MEAN CORPUSCULAR HGB CONC 32.1 g/dL (32.0-36.0); MEAN CORPUSCULAR VOLUME 87.6 fL (79-99); MONOCYTES # (AUTO) 0.2 K/uL (0.1-1.0); MONOCYTES % (AUTO) 1.5 % (3.0-13.0); NEUTROPHILS # (AUTO) 14.4 K/uL (1.8-7.7); NEUTROPHILS % (AUTO) 92.3 % (40.0-77.0); PLATELET COUNT (AUTO) 292 K/uL (130-400); RED BLOOD CELL COUNT(AUTO) 2.99 MIL/uL (4.00-5.50); RED CELL DISTRIBUTION WIDTH 15.3 % (11.0-15.5); WHITE BLOOD COUNT (AUTO) 15.6 K/uL (4.8-10.8)
[2024-05-27 04:25] LABS: CREATININE 1.3 mg/dL (0.5-1.0); POTASSIUM 4.3 mmol/L (3.5-5.1)
[2024-05-27 04:32] LABS: INR <= 0.93 (0.85-1.15); PROTHROMBIN TIME 10.1 SEC (9.6-11.6)
--- NOTE | 2024-05-27 05:03 | PN ---
INFECTIOUS DISEASE FOLLOWUP NOTE DATE OF SERVICE: 05/26/2024 SUBJECTIVE: The patient is seen and examined at bedside today. No fever or chills. No nausea or vomiting. Still having bowel movement, was passing gas. She remains in the ICU. No rashes or itchiness. No bleeding tendency. No sore throat or rhinorrhea. No depression or suicidal ideation. OBJECTIVE: VITAL SIGNS: Temperature 98.7. EYES: No icterus. Pupils equal and reactive. HENT: No oral thrush seen. Moist oral mucosa. NECK: Supple. No JVD. No thyromegaly. LUNGS: Good air entry. Few crackles. CARDIOVASCULAR: S1, S2 regular. No murmur heard. ABDOMEN: Obese, soft, nontender. Bowel sounds has been present. CENTRAL NERVOUS SYSTEM: Awake, alert, oriented x 3, bedbound debility. SKIN: No rashes. No itchiness. LYMPHATIC: No peripheral lymphadenopathy. MUSCULOSKELETAL: No joint swelling, erythema, or tenderness. VASCULAR: No ischemia or gangrene of the extremities. ASSESSMENT: * A 73-year-old female with multiple . * Urinary tract infection. * Multifocal pneumonia. * Dehydration. * . * Obesity. * Small bowel obstruction. * Debility. PLAN: * Continue linezolid. * Continue meropenem. * Continue critical care support. * Continue pain management. * Continue DVT prophylaxis. * Monitor electrolytes. * The patient will follow up closely. TID: [id number] RECEIPT: [id number]
--- NOTE | 2024-05-27 08:25 | HMCIMG ---
CT NONCONTRAST CHEST Comparison Study: none History: Right pulmonary nodule Technique: Helical CT of the chest without IV contrast at 5 mm collimation. Coronal and sagittal reformations also done. CT Dose Index (CTDI): 2.38 mGy Dose Length Product (DLP): 94.8 total mGy-cm Findings: The airway is intact. The trachea and major bronchi are unremarkable. The chest exam shows no pulmonary nodules or masses. There are bilateral moderate pleural effusions. Bilateral basal atelectasis is seen and there are scattered infiltrates of the right lung consistent with pneumonia. Infiltrates surround a stellate-looking area of the right upper lobe measuring 15 mm. These could represent a spiculated nodule. Follow-up to complete radiographic resolution of pneumonia is recommended and if the nodule persists, biopsy may be necessary. There is no pneumothorax. There is no evidence of pneumomediastinum. The nonenhanced exam of the jyothi and mediastinum is unremarkable. No evidence of hilar enlargement is seen. The aorta shows no aneurysmal dilatation or significant atheromatous calcification. No significant brachiocephalic vascular abnormalities are seen. The heart is unremarkable. It is not enlarged. No significant coronary arterial calcifications are seen. There is no pericardial effusion. The rib cage appears unremarkable. The soft tissues of the chest wall are unremarkable. The dorsal spine shows no significant abnormalities. IMPRESSION: There are bilateral moderate pleural effusions. Bilateral basal atelectasis is seen and there are scattered infiltrates of the right lung consistent with pneumonia. Infiltrates surround a stellate-looking area of the right upper lobe measuring 15 mm. These could represent a spiculated nodule. Follow-up to complete radiographic resolution of pneumonia is recommended and if the nodule persists, biopsy may be necessary. This study was performed using dose reduction techniques to include automated exposure control and/or adjustment of the mA and/or kV according to patient size.
[2024-05-27] MEDS: LORazepam 2 MG/ML 1 ML VIAL IVP ONE ×2 (09:44→10:15)
--- NOTE | 2024-05-27 10:52 | HMCIMG ---
Exam Type: CHEST 1VW Clinical Information: picc line placement Comparison: May 26, 2024 Findings: Right PICC line is noted with tip within the cavoatrial junction and there are no other interval changes. IMPRESSION: Right PICC line as noted.
--- NOTE | 2024-05-27 13:09 | PN ---
INFECTIOUS DISEASE PROGRESS NOTE Date of Service: May 27, 2024 SUBJECTIVE: This is a 73-year-old female patient who was admitted to the hospital with chief complaint of abdominal pain, nausea or vomiting. A CT of the abdomen/pelvis done on admission showed small bowel obstruction and bilateral pneumonia. Patient's urinalysis was positive and the WBC was 38.1. Patient was on acute renal failure with BUN of 67 and creatinine of 4.3. General surgery was consulted and following. Patient however wants to wait on any surgical intervention. Patient was seen and examined at bedside in room 216. Patient is awake, alert and oriented x 3. WBC has trended down to 15.6 this morning. Patient is afebrile, temperature is 97.9. Patient currently continues on Meropenem and linezolid. Patient has been started on clear liquid diet. No reports of nausea or vomiting. Patient has been referred to SNF and pending insurance authorization. PHYSICAL EXAM EYES: Anicteric. Pupils equal and reactive. HENT: No oral thrush seen, moist Oral mucosa NECK: Supple, no JVD or thyromegaly. LUNGS: Good air entry. No rales, no rhonchi. Oxygen via nasal cannula. CARDIOVASCULAR: S1, S2 regular. No murmur heard. ABDOMEN: Soft, non tender, bowel sounds present, no organomegaly CENTRAL NERVOUS SYSTEM: Awake, alert, oriented x 3. No focal deficits. SKIN: No rashes, no swelling. LYMPHATICS: No peripheral lymphadenopathy MUSCULOSKELETAL: No joint swelling, erythema or tenderness. EXTREMITIES: No cyanosis or clubbing BACK: No deformity, no pressure ulcer. GENITOURINARY: No dysuria or hematuria Vital Sign (Last 12 Hours) 05/27/24 05/27/24 05/27/24 05/27/24 01:46 02:46 03:46 04:46 Temp 98.1 Pulse 62 60 72 81 Resp 14 10 14 16 B/P (MAP) 111/67 116/68 146/86 145/93 Pulse Ox 96 97 94 96 O2 Delivery Room Air Room Air Room Air Room Air FiO2 21 21 21 21 05/27/24 05/27/24 05/27/24 05/27/24 05:46 07:46 10:35 11:30 Temp 97.9 97.9 Pulse 74 79 76 Resp 13 14 15 B/P (MAP) 135/85 143/85 135/76 Pulse Ox 96 96 98 96 O2 Delivery Room Air Room Air Room Air* Room Air O2 Flow Rate 0 FiO2 21 21 21 21 Intake & Output (last 24hrs) 05/26/24 05/26/24 05/27/24 15:00 23:00 07:00 Intake Total 1650.0 ml 875.0 ml Output Total 450 ml Balance 1650.0 ml 425.0 ml LABS: Laboratory: Test 05/27/24 11:31 05/27/24 04:04 Range/Units Whole Blood Glucose 104 70-110 MG/DL White Blood Count 15.6 H 4.8-10.8 K/uL Red Blood Count 2.99 L 4.00-5.50 MIL/uL Hemoglobin 8.4 L 12.0-16.0 g/dL Hematocrit 26.2 L 36-48 % Mean Corpuscular Volume 87.6 79-99 fL Mean Corpuscular Hemoglobin 28.1 27.0-33.0 pg Mean Corpuscular Hemoglobin Concent 32.1 32.0-36.0 g/dL Red Cell Distribution Width 15.3 11.0-15.5 % Platelet Count 292 130-400 K/uL Mean Platelet Volume 8.3 7.5-10.5 fL Immature Granulocyte % (Auto) 1.0 0-1 % Neutrophils (%) (Auto) 92.3 H 40.0-77.0 % Lymphocytes (%) (Auto) 5.1 L 21.0-51.0 % Monocytes (%) (Auto) 1.5 L 3.0-13.0 % Eosinophils (%) (Auto) 0.0 0.0-8.0 % Basophils (%) (Auto) 0.1 0.0-5.0 % Neutrophils # (Auto) 14.4 H 1.8-7.7 K/uL Lymphocytes # (Auto) 0.8 L 1.0-4.8 K/uL Monocytes # (Auto) 0.2 0.1-1.0 K/uL Eosinophils # (Auto) 0.00 0.00-0.70 K/uL Basophils # (Auto) 0.02 0.00-0.20 K/uL Absolute Immature Granulocyte (auto 0.15 0-1 K/uL Nucleated Red Blood Cells 0.0 0.0-0.19 % Prothrombin Time 10.1 9.6-11.6 SEC Prothromb Time International Ratio <= 0.93 0.85-1.15 Sodium Level 133 L 136-145 mmol/L Potassium Level 4.3 3.5-5.1 mmol/L Chloride Level 101 101-111 mmol/L Carbon Dioxide Level 24 21-32 mmol/L Blood Urea Nitrogen 72 H 7-18 mg/dL Creatinine 1.3 H 0.5-1.0 mg/dL Glomerular Filtration Rate Calc 43 >90 mL/min Random Glucose 114 H 70-105 mg/dL Total Calcium 9.2 8.5-10.1 mg/dL Magnesium Level 1.90 1.80-2.40 mg/dL ASSESSMENT: Multifocal pneumonia. Urinary tract infection. Abdominal pain. Small-bowel obstruction Leukocytosis. Dehydration PLAN: Continue Meropenem IV. Continue linezolid IV. Continue GI prophylaxis. Continue pain management. General surgery has been consulted and following. We will monitor electrolytes. Case management working on SNF placement. This case was reviewed and discussed with my supervising physician and the above assessment and plan was formulated and agreed upon. ATTESTATION BY PHYSICIAN I have seen and examined the patient. I reviewed the documentation, medical decision making, and treatment plan as noted by the mid-level provider above. I agree with the findings and plan of care. GOSIA INIGUEZ MD, [facility] May 27, 2024 13:09
--- NOTE | 2024-05-27 15:15 | PN ---
NEPHROLOGY PROGRESS NOTE Date/Time Patient Seen: May 27, 2024 Reason for Consultation: 15:13 SUBJECTIVE: This is a 73-year-old female with past medical history of cervical cancer with hysterectomy, obesity, hypertension, hypothyroidism, fibromyalgia, chronic left hip with multiple surgeries, anemia She presented to the hospital secondary to abdominal pain, nausea, vomiting. The patient has small-bowel obstruction and pneumonia detected by CT scan. The patient is in ICU, critically ill, has been on pressors off and on with other comorbidities. She continues to be followed by General surgery for small-bowel obstruction, no surgical intervention planned Continued antibiotics for UTI. The patient has acute kidney injury. We has been consulted for renal failure. Renal function is improving Electrolytes show magnesium 1.9 [address] catheter is in place. She was seen in the ICU, in no acute distress No family at the bedside Condition is critical and guarded REVIEW OF SYSTEMS: GENERAL: Negative for any nausea, vomiting, fevers, chills, or weight loss. NEUROLOGIC: Negative for any blurry vision, blind spots, double vision, facial asymmetry, dysphagia, dysarthria, hemiparesis, hemisensory deficits, vertigo, ataxia. HEENT: Negative for any head trauma, neck trauma, neck stiffness, photophobia, phonophobia, sinusitis, rhinitis. CARDIAC: Negative for any chest pain, dyspnea on exertion, paroxysmal nocturnal dyspnea, peripheral edema. PULMONARY: Negative for any shortness of breath, wheezing, COPD, or TB exposure. GASTROINTESTINAL: Negative for any abdominal pain, nausea, vomiting, bright red blood per rectum, melena. GENITOURINARY: Negative for any dysuria, hematuria, incontinence. INTEGUMENTARY: Negative for any rashes, cuts, insect bites. RHEUMATOLOGIC: Negative for any joint pains, photosensitive rashes, history of vasculitis or kidney problems. HEMATOLOGIC: Negative for any abnormal bruising, frequent infections or bleeding. Vital Signs (last 8hr) Date Time Temp Pulse Resp B/P (MAP) Pulse Ox O2 Delivery O2 Flow Rate FiO2 05/26/24 13:00 90 18 142/86 97 Room Air 05/26/24 12:00 96 Room Air* 0 21 05/26/24 12:00 98.4 88 22 143/61 96 Room Air 21 05/26/24 11:00 92 94 126/80 96 Room Air 05/26/24 10:00 82 14 131/75 95 Room Air 05/26/24 09:00 108 16 149/87 95 Room Air 05/26/24 08:00 98 Nasal Cannula* 2 28 05/26/24 08:00 99.0 72 10 138/78 97 Room Air 05/26/24 07:00 82 15 144/85 100 Nasal Cannula 2.0 05/26/24 06:46 74 14 130/77 100 Nasal Cannula 2.0 PHYSICAL EXAM: GENERAL: Alert and oriented x 3. No acute distress. Well-nourished. EYES: EOMI. Anicteric. HENT: Moist mucous membranes. No scleral icterus. No cervical lymphadenopathy. LUNGS: Clear to auscultation bilaterally. No accessory muscle use. CARDIOVASCULAR: Regular rate and rhythm. No murmur. No JVD. ABDOMEN: Soft, non-tender and non-distended. No palpable masses. EXTREMITIES: No edema. Non-tender. SKIN: No rashes or lesions. Warm. NEUROLOGIC: No focal neurological deficits. CN II-XII grossly intact, but not individually tested. PSYCHIATRIC: Cooperative. Appropriate mood and affect. Current Medications Medications (Trade) Dose Ordered Sig/Dionisio Route PRN Reason Start Time Stop Time Status Last Admin Dose Admin Famotidine (Pepcid 20mg Vial) 20 mg Q48H IV 05/23/24 21:00 05/23/24 19:37 DC Fat Emulsion Intravenous 250 ml @ 42 mls/hr MoWeFr@1000 IV 05/25/24 10:00 05/25/24 19:34 DC 05/25/24 09:14 42 MLS/HR Heparin Sodium (Porcine) (HEParin 5,000 UNIT VIAL) 5,000 unit Q12H SQ 05/23/24 21:00 06/22/24 20:59 05/26/24 08:33 5,000 UNIT Hydrocortisone Sodium Succinate (Solu-corTEF 100MG) 50 mg Q6H IV 05/24/24 14:00 05/25/24 10:08 DC 05/25/24 09:13 50 MG Hydrocortisone Sodium Succinate (Solu-corTEF 100MG) 50 mg Q8H IV 05/25/24 16:00 06/23/24 13:59 05/26/24 08:31 50 MG Hydromorphone HCl (DiLAUDid 0.5MG INJ) 0.2 mg Q6H PRN IVP SEVERE PAIN (7-10) 05/23/24 13:30 05/24/24 01:23 DC 05/24/24 00:08 0.2 MG Hydromorphone HCl (DiLAUDid 0.5MG INJ) 0.3 mg Q4HPRN PRN IVP SEVERE PAIN (7-10) 05/24/24 01:30 05/28/24 13:29 05/26/24 13:43 0.3 MG Hydromorphone HCl (DiLAUDid 0.5MG INJ) 0.5 mg Q6H PRN IVP SEVERE PAIN (7-10) 05/23/24 13:30 05/23/24 13:18 DC Insulin Human Regular (humuLIN R 100 UNIT/ML 3ML) INSULIN SLIDING SCAL... ACHS SQ 05/26/24 16:30 06/25/24 16:29 Linezolid 300 ml @ 150 mls/hr Q12H IV 05/23/24 11:30 06/02/24 11:29 05/26/24 11:32 150 MLS/HR Magnesium Sulfate 50 ml @ 0 mls/hr PROTOCOL PRN IV ad 05/23/24 17:00 06/22/24 16:59 05/24/24 08:58 25 MLS/HR Meropenem (Merrem) 1 gm Q24H IVPB 05/23/24 14:00 06/02/24 13:59 05/25/24 14:50 1 GM Methylnaltrexone [place] (reLIStor) 12 mg DAILY SQ 05/25/24 09:00 06/24/24 08:59 05/26/24 10:38 12 MG Norepinephrine 250 ml @ 0 mls/hr PROTOCOL IV 05/23/24 16:00 05/24/24 07:36 DC 05/24/24 01:40 51 MLS/HR Norepinephrine Bitartrate 250 ml @ 0 mls/hr PROTOCOL IV 05/24/24 08:00 06/23/24 07:59 Norepinephrine Bitartrate (Norepineph 16 Mg/250ml NS Premix) Protocol PROTOCOL IV 05/24/24 07:30 05/24/24 07:39 DC Pantoprazole Sodium (PROTonix 40MG INJ) 40 mg DAILY IVP 05/24/24 09:00 06/23/24 08:59 05/26/24 08:31 40 MG Pharmacy Profile Note (Lace Assessment) 1 each AD MISC 05/23/24 13:30 05/23/24 13:25 DC Potassium Chloride 100 ml @ 100 mls/hr AD PRN IV POTASSIUM PROTOCOL 05/25/24 19:30 06/24/24 19:29 Potassium Chloride (K-Dur/Klor-Con 20meq) 20 meq AD PRN PO POTASSIUM PROTOCOL 05/25/24 19:30 06/24/24 19:29 Potassium Chloride (KCl 10% Elixir 20meq/15ml) 20 meq AD PRN PO POTASSIUM PROTOCOL 05/25/24 19:30 06/24/24 19:29 05/26/24 05:37 20 MEQ Sodium Chloride 500 ml @ 0 mls/hr Q0M IV 05/24/24 10:00 06/23/24 09:59 05/24/24 09:54 1,200 MLS/HR Sodium Chloride 1,000 ml @ 125 mls/hr Q8H IV 05/23/24 13:30 06/22/24 13:29 05/26/24 12:26 125 MLS/HR Wound Care/ Dressing Products (Venelex Ointment Packet) 1 gm BID TP 05/24/24 21:00 05/25/24 07:07 DC 05/24/24 20:09 1 GM Wound Care/ Dressing Products (Venelex Ointment) 1 APPL BID TP 05/25/24 09:00 06/24/24 08:59 05/26/24 08:31 1 GM LABORATORY: [ ] Hematology Labs: Test 05/27/24 04:04 Range/Units White Blood Count 15.6 H 4.8-10.8 K/uL Red Blood Count 2.99 L 4.00-5.50 MIL/uL Hemoglobin 8.4 L 12.0-16.0 g/dL Hematocrit 26.2 L 36-48 % Mean Corpuscular Volume 87.6 79-99 fL Mean Corpuscular Hemoglobin 28.1 27.0-33.0 pg Mean Corpuscular Hemoglobin Concent 32.1 32.0-36.0 g/dL Red Cell Distribution Width 15.3 11.0-15.5 % Platelet Count 292 130-400 K/uL Mean Platelet Volume 8.3 7.5-10.5 fL Immature Granulocyte % (Auto) 1.0 0-1 % Neutrophils (%) (Auto) 92.3 H 40.0-77.0 % Lymphocytes (%) (Auto) 5.1 L 21.0-51.0 % Monocytes (%) (Auto) 1.5 L 3.0-13.0 % Eosinophils (%) (Auto) 0.0 0.0-8.0 % Basophils (%) (Auto) 0.1 0.0-5.0 % Neutrophils # (Auto) 14.4 H 1.8-7.7 K/uL Lymphocytes # (Auto) 0.8 L 1.0-4.8 K/uL Monocytes # (Auto) 0.2 0.1-1.0 K/uL Eosinophils # (Auto) 0.00 0.00-0.70 K/uL Basophils # (Auto) 0.02 0.00-0.20 K/uL Absolute Immature Granulocyte (auto 0.15 0-1 K/uL Nucleated Red Blood Cells 0.0 0.0-0.19 % Chemistry Labs: Test 05/27/24 11:31 05/27/24 04:04 Range/Units Whole Blood Glucose 104 70-110 MG/DL Sodium Level 133 L 136-145 mmol/L Potassium Level 4.3 3.5-5.1 mmol/L Chloride Level 101 101-111 mmol/L Carbon Dioxide Level 24 21-32 mmol/L Blood Urea Nitrogen 72 H 7-18 mg/dL Creatinine 1.3 H 0.5-1.0 mg/dL Glomerular Filtration Rate Calc 43 >90 mL/min Random Glucose 114 H 70-105 mg/dL Total Calcium 9.2 8.5-10.1 mg/dL Magnesium Level 1.90 1.80-2.40 mg/dL Coagulation Labs: Test 05/27/24 04:04 Range/Units Prothrombin Time 10.1 9.6-11.6 SEC Prothromb Time International Ratio <= 0.93 0.85-1.15 DIAGNOSTICS / RADIOLOGY: REASON: duspected pneumonia ORDERING PHYSICIAN: DEJAN STOREY PROCEDURE: CXR1VW - CHEST 1VW Exam Type: CHEST 1VW Clinical Information: duspected pneumonia Comparison: None Findings: Pulmonary pattern is as before. No worrisome interval changes have taken place. Impression: Stable exam. DICTATED BY: NGOC ELIZABETH MD DATE: 05/25/24 1549 REASON: CENTRAL LINE PLACEMENT ORDERING PHYSICIAN: SAVANNA GRAF MD PROCEDURE: CXR1VW - CHEST 1VW CHEST 1VW HISTORY: Right IJ line placement COMPARISON: 05/23/2024 FINDINGS: A frontal projection of the chest was obtained. No acute pulmonary infiltrates is seen. Prominent interstitial markings are seen. There may be a hiatal hernia. The heart is borderline enlarged. All the lines and tubes are again seen in place. No evidence of aortic calcification is seen. IMPRESSION: 1. No acute pulmonary infiltrate is seen. DICTATED BY: YOVANNY BUTTERFIELD MD DATE: 05/23/24 1609 REASON: NG tube insertion, Please verify placement ORDERING PHYSICIAN: LINDSEY FRAIRE MD PROCEDURE: ABD 1VW - ABD 1VW Exam Type: ABD 1VW Clinical Information: NG tube insertion, Please verify placement Comparison: None Findings and impression: Nasogastric tube tip in the distal esophagus. Consider advancing. DICTATED BY: NGOC ELIZABETH MD DATE: 05/23/24 1426 REASON: abd distension , sepsis ORDERING PHYSICIAN: SAVANNA GRAF MD PROCEDURE: ABD PEL WO - CT ABDOMEN/PELVIS W/O CONTRAST Exam Type: CT ABDOMEN/PELVIS W/O CONTRAST Clinical Information: abd distension , sepsis Comparison: None CT Dose Index (CTDI): 10.20 mGy Dose Length Product (DLP): 530.00 total mGy-cm PROTOCOL: Routine noncontrast helical scanning of the abdomen and pelvis was performed at 5mm collimation. Findings: No evidence of nephro or ureterolithiasis is found. No hydronephrosis or ureteral dilatation is seen. Bilateral basal pneumonic infiltrates. Follow-up is advised. The stomach is distended. The spleen is unremarkable. It is not enlarged. The pancreas shows normal anatomy. It is not fatty replaced. It shows no lesions. The pancreatic duct is not dilated. The gallbladder is unremarkable. It shows no cholelithiasis. The gallbladder wall is normal in thickness. There is no pericholecystic fluid. The is no acute or chronic inflammation noted. The adrenal glands are unremarkable. There is no enlargement. No lesions are noted. The liver is unremarkable. It shows no focal masses. The appendix is unremarkable. It shows no evidence of inflammation. No appendicolith is seen. Dilatation of multiple small bowel loops is seen with distal transition point consistent with distal small bowel obstruction. The colon is unremarkable. The urinary bladder is unremarkable. There is no wall thickening to suggest tumor or inflammation. There are no intraluminal calculi. There are no diverticula. There is no evidence of chronic bladder outlet obstruction. There is no evidence of urinary bladder distention to suggest urinary retention. The other pelvic structures are unremarkable. Status post bilateral hip replacement with cephalad dislocation of the left femoral component. IMPRESSION: Small bowel obstruction. Bilateral basal pneumonia. This study was performed using dose reduction techniques to include automated exposure control and/or adjustment of the mA and/or kV according to patient size. DICTATED BY: NGOC ELIZABETH MD DATE: 05/23/24 1156 REASON: DISTENDED ABD ORDERING PHYSICIAN: SAVANNA GRAF MD PROCEDURE: CXR1VW - CHEST 1VW Exam Type: CHEST 1VW Clinical Information: DISTENDED ABD Comparison: None Findings: The lungs are clear of infiltrates. The heart is normal in size. The bony and soft tissue structures of the chest are unremarkable. Impression: Clear lungs. DICTATED BY: NGOC ELIZABETH MD DATE: 05/23/24 0949 REASON: DISTENDED ABD ORDERING PHYSICIAN: SAVANNA GRAF MD PROCEDURE: ABD 1VW - ABD 1VW Exam Type: ABD 1VW Clinical Information: DISTENDED ABD Comparison: None Findings: Abdomen demonstrates no evidence of pathologic calcification or soft tissue mass. There are no radiopacities to suggest calculous disease. The intestinal gas pattern is within normal limits without evidence of dilatation to suggest obstruction or adynamic ileus. Status post bilateral hip replacement with superior displacement of the femoral from the acetabular component on the left side. Postoperative changes lumbar spine. IMPRESSION: Normal abdomen. DICTATED BY: NGOC ELIZABETH MD DATE: 05/23/24 0948 ASSESSMENT: Anemia Acute on chronic renal failure Hypotension Small-bowel obstruction Opiate induced ileus Medical noncompliance UTI Dehydration Hyponatremia Hypothyroidism Fibromyalgia Depression PLAN: Labs, diagnostic, radiologic exams reviewed and interpreted by myself and supervising physician. We have reviewed external records in detail Magnesium replacement has been ordered. Require close monitoring of renal function and electrolytes Order CBC, CMP, and electrolytes in am Continue with antibiotics Renal diabetic diet BiPAP as necessary, for respiratory distress IV pressors as needed Monitor blood pressure adjust medication doses as needed Avoid hypotensive episodes May use Dilaudid 0.5 mg IV every 6 hours as needed for severe pain Monitor blood sugars Strict intake, output, and daily weight should be monitored Please renally adjust medications Avoid nephrotoxic and nonsteroidal drugs Avoid contrast if possible Will continue to monitor renal function, anemia, electrolytes Treatment plan discussed with patient Questions were answered We have discussed with the other team physicians in detail about the care plan We will continue to monitor the patient closely Total critical care time spent with patient, nursing staff, critical care team over 35 minutes ATTESTATION BY PHYSICIAN I have seen and examined the patient. I reviewed the documentation, medical decision making, and treatment plan as noted by the mid-level provider above. I agree with the findings and plan of care. GERI LANDRUM MD, [facility] May 27, 2024 15:15
--- NOTE | 2024-05-27 15:40 | NUR ---
PT is received The patient is received from the 2nd floor. She is in no distress and is resting comfortably on bed. She voiced to this writer technical publications. "make sure I get my Dilaudid on time". She has a right arm PICC line that has been confirmed by radiology and an order was received to use by MARIA E Chapa. She has a right IJ tri limen catheter in place as well with no orders to remove as of yet.
--- NOTE | 2024-05-27 16:18 | PN ---
[facility] PROGRESS NOTE Date of Service: May 27, 2024 Time of Service: 16:13 SUBJECTIVE: [ ] This 73-year-old female with past medical history of hypertension hypothyroidism, diabetes mellitus type, history of chronic left hip pain with hip dislocation, anemia presented to the hospital secondary to abdominal pain, nausea, vomiting. Labs were notable for white count of 38.1, hemoglobin was 11.5, platelet count is 447 K, sodium is 128, potassium was 4.6, chloride is 86, creatinine is 4.7, BUN is 67, CK is 574, calcium is 10.5, glucose is 130, lactic acid is two point, troponin is negative x1. Patient underwent CT abdomen pelvis which showed small bowel obstruction. Concern for possible bilateral basal pneumonia. Patient admitted to the intensive care unit for further evaluation and medical management. Patient is seen and examined bedside, she is awake, following commands, NPO, NG tube connected to intermittent suction, discussed with the RN, 1.6 L output since last night, BP 113/65, heart rate 108, saturating 96% 2 L nasal cannula. Remains on pressor support with Levophed, getting broad-spectrum IV antibiotics during my visit. WBC trending down 20 point, hemoglobin 8.5, 26.6. BUN 62, creatinine 3.0, magnesium 1.6. Chest x-ray no acute pulmonary infiltrate seen. Follow repeat KUB. Monitor renal function in a.m. awaiting surgical recommendations to see if the patient will be taken to the operating room for exploration. 2/3 patient seen at bedside, no acute events overnight. She has had one bowel movement since admission and has been weaned off pressors. She has been afebrile, hemodynamically stable saturating 99% on 2 L nasal cannula, we will be weaned as able. WBC is stable at 21.4, similar to yesterday, hemoglobin decreased from 8.5 down to 8.1, platelets decreased from 353 down to 321, creatinine improved from 3.0 down to 1.8, potassium decreased from 3.5 down to 2.2, remainder of her labs are relatively unremarkable. With these changes in lab suggest that she was dehydrated with TERRANCE on admission. Cultures are no growth to date, we will continue with empiric antibiotics per Infectious Disease recommendations. 2/4 seen at bedside, no acute events overnight. Nursing reports one bowel movement yesterday, she has been afebrile, hemodynamically stable saturating well on room air. WBC improved from 21.4 down to 15.6, hemoglobin decreased from 8.1 down to 7.6, we will continue to trend, sodium decreased from 138 down to 135, potassium improved from 3.2 up to 3.4, creatinine improved from 1.8 down to 1.4, remainder of her labs are relatively unremarkable. Cultures are no growth to date. Patient is started on clear liquid diet, we will continue to monitor 2/5 patient seen at bedside, no acute events overnight. No bowel movement ye sterday however she is tolerating a clear liquid diet. WBC stable at 15.6, same as yesterday, hemoglobin improved from 7.6 up to 8.4, sodium decreased from 135 down to 133, creatinine improved from 1.4 down to 1.3, remainder of her labs are relatively unremarkable. [facility] her care. Blood and urine cultures are no growth to date. We will restart home fentanyl patch REVIEW OF SYSTEMS 12 point review of systems negative unless noted in HPI PHYSICAL EXAM GENERAL APPEARANCE: The patient is awake, alert, and oriented, in no acute c ardiopulmonary distress. Appears frail NEUROLOGICAL: Cranial nerves II-XII grossly intact. Motor is 5/5 in bilateral upper and lower extremities proximal to distal. No sensory deficits. HEENT: Face is symmetric. Pupils are equal and reactive. Extraocular movements are intact. NECK: Supple. No JVD. No thyromegaly. No submental, submandibular, pre- /postauricular, occipital or supraclavicular lymphadenopathy. CHEST: Normal chest expansion. No Telemetry. LUNGS: Absence of any rales, rhonchi or any wheezing. CARDIOVASCULAR: Regular. S1 and S2 normal. No appreciable rubs, murmurs or gallops. ABDOMEN: Mildly distended, mild diffuse tenderness. : Deferred. No [place]. EXTREMITIES: Non-edematous and not cyanotic. No clubbing. Good capillary refill. SKIN: No skin breakdown. Vital Signs (last 8hr) Date Time Temp Pulse Resp B/P (MAP) Pulse Ox O2 Delivery O2 Flow Rate FiO2 05/27/24 15:44 98.1 80 18 147/90 97 Room Air 05/27/24 11:30 97.9 76 15 135/76 96 Room Air 21 05/27/24 10:35 98 Room Air* 0 21 LABS: Laboratory: Test 05/27/24 11:31 05/27/24 04:04 Range/Units Whole Blood Glucose 104 70-110 MG/DL White Blood Count 15.6 H 4.8-10.8 K/uL Red Blood Count 2.99 L 4.00-5.50 MIL/uL Hemoglobin 8.4 L 12.0-16.0 g/dL Hematocrit 26.2 L 36-48 % Mean Corpuscular Volume 87.6 79-99 fL Mean Corpuscular Hemoglobin 28.1 27.0-33.0 pg Mean Corpuscular Hemoglobin Concent 32.1 32.0-36.0 g/dL Red Cell Distribution Width 15.3 11.0-15.5 % Platelet Count 292 130-400 K/uL Mean Platelet Volume 8.3 7.5-10.5 fL Immature Granulocyte % (Auto) 1.0 0-1 % Neutrophils (%) (Auto) 92.3 H 40.0-77.0 % Lymphocytes (%) (Auto) 5.1 L 21.0-51.0 % Monocytes (%) (Auto) 1.5 L 3.0-13.0 % Eosinophils (%) (Auto) 0.0 0.0-8.0 % Basophils (%) (Auto) 0.1 0.0-5.0 % Neutrophils # (Auto) 14.4 H 1.8-7.7 K/uL Lymphocytes # (Auto) 0.8 L 1.0-4.8 K/uL Monocytes # (Auto) 0.2 0.1-1.0 K/uL Eosinophils # (Auto) 0.00 0.00-0.70 K/uL Basophils # (Auto) 0.02 0.00-0.20 K/uL Absolute Immature Granulocyte (auto 0.15 0-1 K/uL Nucleated Red Blood Cells 0.0 0.0-0.19 % Prothrombin Time 10.1 9.6-11.6 SEC Prothromb Time International Ratio <= 0.93 0.85-1.15 Sodium Level 133 L 136-145 mmol/L Potassium Level 4.3 3.5-5.1 mmol/L Chloride Level 101 101-111 mmol/L Carbon Dioxide Level 24 21-32 mmol/L Blood Urea Nitrogen 72 H 7-18 mg/dL Creatinine 1.3 H 0.5-1.0 mg/dL Glomerular Filtration Rate Calc 43 >90 mL/min Random Glucose 114 H 70-105 mg/dL Total Calcium 9.2 8.5-10.1 mg/dL Magnesium Level 1.90 1.80-2.40 mg/dL Current Medications Medications (Trade) Dose Ordered Sig/Dionisio Route PRN Reason Start Time Stop Time Status Last Admin Dose Admin Famotidine (Pepcid 20mg Vial) 20 mg Q48H IV 05/23/24 21:00 05/23/24 19:37 DC Fat Emulsion Intravenous 250 ml @ 42 mls/hr MoWeFr@1000 IV 05/25/24 10:00 05/25/24 19:34 DC 05/25/24 09:14 42 MLS/HR Heparin Sodium (Porcine) (HEParin 5,000 UNIT VIAL) 5,000 unit Q12H SQ 05/23/24 21:00 06/22/24 20:59 05/27/24 09:32 5,000 UNIT Hydrocortisone Sodium Succinate (Solu-corTEF 100MG) 50 mg Q6H IV 05/24/24 14:00 05/25/24 10:08 DC 05/25/24 09:13 50 MG Hydrocortisone Sodium Succinate (Solu-corTEF 100MG) 50 mg Q8H IV 05/25/24 16:00 06/23/24 13:59 05/27/24 08:20 50 MG Hydromorphone HCl (DiLAUDid 0.5MG INJ) 0.2 mg Q6H PRN IVP SEVERE PAIN (7-10) 05/23/24 13:30 05/24/24 01:23 DC 05/24/24 00:08 0.2 MG Hydromorphone HCl (DiLAUDid 0.5MG INJ) 0.3 mg Q4HPRN PRN IVP SEVERE PAIN (7-10) 05/24/24 01:30 05/28/24 13:29 05/27/24 13:27 0.3 MG Hydromorphone HCl (DiLAUDid 0.5MG INJ) 0.5 mg Q6H PRN IVP SEVERE PAIN (7-10) 05/23/24 13:30 05/23/24 13:18 DC Insulin Human Regular (humuLIN R 100 UNIT/ML 3ML) INSULIN SLIDING SCAL... ACHS SQ 05/26/24 16:30 06/25/24 16:29 Linezolid 300 ml @ 150 mls/hr Q12H IV 05/23/24 11:30 06/02/24 11:29 05/27/24 11:41 150 MLS/HR Magnesium Sulfate 50 ml @ 0 mls/hr PROTOCOL PRN IV ad 05/23/24 17:00 06/22/24 16:59 05/27/24 09:39 25 MLS/HR Meropenem (Merrem 1gm) 1 gm Q24H IVPB 05/23/24 14:00 06/02/24 13:59 05/27/24 12:55 1 GM Methylnaltrexone [place] (reLIStor) 12 mg DAILY SQ 05/25/24 09:00 06/24/24 08:59 05/27/24 10:00 12 MG Norepinephrine 250 ml @ 0 mls/hr PROTOCOL IV 05/23/24 16:00 05/24/24 07:36 DC 05/24/24 01:40 51 MLS/HR Norepinephrine Bitartrate 250 ml @ 0 mls/hr PROTOCOL IV 05/24/24 08:00 06/23/24 07:59 Norepinephrine Bitartrate (Norepineph 16 Mg/250ml NS Premix) Protocol PROTOCOL IV 05/24/24 07:30 05/24/24 07:39 DC Pantoprazole Sodium (PROTonix 40MG INJ) 40 mg DAILY IVP 05/24/24 09:00 06/23/24 08:59 05/27/24 08:20 40 MG Pharmacy Profile Note (Lace Assessment) 1 each AD MISC 05/23/24 13:30 05/23/24 13:25 DC Potassium Chloride 100 ml @ 100 mls/hr AD PRN IV POTASSIUM PROTOCOL 05/25/24 19:30 06/24/24 19:29 Potassium Chloride (K-Dur/Klor-Con 20meq) 20 meq AD PRN PO POTASSIUM PROTOCOL 05/25/24 19:30 06/24/24 19:29 Potassium Chloride (KCl 10% Elixir 20meq/15ml) 20 meq AD PRN PO POTASSIUM PROTOCOL 05/25/24 19:30 06/24/24 19:29 05/26/24 05:37 20 MEQ Sodium Chloride 500 ml @ 0 mls/hr Q0M IV 05/24/24 10:00 06/23/24 09:59 05/24/24 09:54 1,200 MLS/HR Sodium Chloride 1,000 ml @ 125 mls/hr Q8H IV 05/23/24 13:30 06/22/24 13:29 05/27/24 12:57 125 MLS/HR Wound Care/ Dressing Products (Venelex Ointment Packet) 1 gm BID TP 05/24/24 21:00 05/25/24 07:07 DC 05/24/24 20:09 1 GM Wound Care/ Dressing Products (Venelex Ointment) 1 APPL BID TP 05/25/24 09:00 06/24/24 08:59 05/27/24 08:21 1 GM DIAGNOSTICS / RADIOLOGY: [ ] ASSESSMENT: Severe sepsis, resolved POA Hypotension resolved POA Small bowel obstruction, ruled out POA Opiate induced ileus Medical non-compliance UTI, ruled out POA Dehydration, resolved Acute kidney injury, improving POA Hyponatremia, improving Mild CK elevation Hyperchloremia History of chronic opioid use Frailty Debility History of chronic left hip dislocation POA PLAN: - patient remains admitted to the ICU -Start clear liquid diet -Continue methylnatrexone -Continue TPN -Continue broad spectrum antibiotics -ID consulted, appreciate recommendations -reference to acute kidney injury. Continue supportive care with IV fluids -Nephrology consultation requested, follow input recommendation -critical care input noted and appreciated -patient will be on Dilaudid for pain control -further orders per hospitalization course. Disposition: Pending improvement in clinical status Greater than 35 minutes ICU time spent in care of patient MARCO JOLLY MD May 27, 2024 16:18
--- NOTE | 2024-05-27 18:49 | PN ---
[facility] PROGRESS NOTE Date Patient Seen: May 27, 2024 Time of Visit: 18:44 Supervising Physician: Dr. Alarcon Primary Care Physician: Chapincito Guardado MD Outpatient Specialists: Inpatient Consults: LEATHA Farrell (Critical care team) , Dr Augustus Ferguson, Dr Eduardo PROBLEM LIST: Acute hypoxic respiratory failure, POA resolved septic shock POA , no responsive to IVF, Requiring Levophed, resolved Multifocal Pneumonia, POA Small bowel obstruction POA Acute complicated cystitis, POA Hematuria POA Severe Dehydration Acute kidney injury POA Electrolyte derangement POA ( Hyponatremia, Hyperchloremia) History of chronic opioid use Frailty Debility History of chronic left hip dislocation, Opiate induced Illeus, Hypothyroidism, multiple recent hospitalizations with long hospital stay, opiate overdose w/ morphine, and fibromyalgia, Osteoarthritis , spinal cord stimulation (SCS) INTERVAL HISTORY: Patient is awake alert and oriented x3. As per RN she just turned off Levophed drip. Blood pressure 144/93 with a heart rate in the 80s respiratory rate of 20 saturating 98% with 2 L via nasal cannula and afebrile. Patient had large bowel movement overnight. Per General surgery patient can start clear liquid diet no plans for OR at this time. She continues on TPN. If patient tolerates chloride liquid diet we can stop TPN and start p.o. feeding. Urine output 1.7 L in the last 24 hours with a balance of +1.9 L we will stop current IV fluids and give a one time dose of Lasix 20 mg IV push. On laboratory WBCs at 21.4 likely reactive from high-dose hydrocortisone that was started for refractory shock H&H was 8.1/25.8 seems to be slowly trending down, platelet count 321 K. On chemistries sodium 138 potassium 3.2 covered per protocol BUN 62 creatinine of 1.8 improved from yesterday which was 3.0 GFR of 29 and glucose of 212 mg/dL total calcium 8.1 BNP 569. No growth two blood cultures and no growth to urine culture. 05/26/2024: At the time of my evaluation, the patient was lying in bed. The staff nurse reports no overnight events. The patient is awake, alert and oriented x3. Currently, the patient is on room air and maintaining optimal oxygen saturation. On the monitor, she is hemodynamically stable. The patient is currently on a clear liquid diet and denies any nausea vomiting or diarrhea. Patient denies any abdominal pain and is so far tolerating her feedings. Last bowel movement was reported on 05/25/2024: No other complaint. 05/27/2024: At the time of my evaluation, the patient was lying in bed. Staff nurse present at the bedside. Family member was present. The patient was breathing on room air. A CT chest done on 05/26/2024, showed moderate bilateral pleural effusions bilateral basal atelectasis. There are scattered infiltrates on the right consistent with pneumonia. There was also suspicion for a spiculated nodule. She was hemodynamically stable on the monitor. No complaint shortness of breath or chest pain. The patient is tolerating clear liquid diet. She has not had a bowel movement despite the use Relistor. I's and O's showed a negative balance of 2200.0. On labs, the patient remained with elevated WBC count 15.6 today. Chemistry panel showed no major derangement. Renal parameters improving. The staff nurse reports no acute events overnight. No other complaint. REVIEW OF SYSTEMS: General:reports generalized body pain. Neurological: No fainting episodes or seizures. HEENT: No nasal congestion or nasal secretion. Respiratory: No cough, shortness of breath, or wheezing Cardiac: No chest pain or palpitations. Gastrointestinal:yes for nausea and much output to ng tube . Genitourinary: No dysuria hematuria. Skin: No rashes or lesions. Hematological: No bruises or bleeding. Musculoskeletal: reports chronic pain to hands and fingers, back and hip Psychiatric: No depression or panic attacks. PHYSICAL EXAM: GENERAL: Mental status improving weak, awake oriented x 3 GCS 15 HEENT: Sclera non icteric, moist mucosa NECK: Supple, no JVD, trachea midline LUNGS: Clear breath sounds bilaterally. No wheezes HEART: Regular rate and rhythm. Normal S1 and S2, without murmurs ABD: abdomen distended but soft non tender, Bowel sounds hypoactive EXT: No clubbing cyanosis or edema NEURO: AAOx3 no focal weakness Vital Signs (last 8hr) Date Time Temp Pulse Resp B/P (MAP) Pulse Ox O2 Delivery O2 Flow Rate FiO2 05/27/24 15:44 98.1 80 18 147/90 97 Room Air 05/27/24 11:30 97.9 76 15 135/76 96 Room Air 21 LABS: Hematology Labs: Test 05/27/24 04:04 Range/Units White Blood Count 15.6 H 4.8-10.8 K/uL Red Blood Count 2.99 L 4.00-5.50 MIL/uL Hemoglobin 8.4 L 12.0-16.0 g/dL Hematocrit 26.2 L 36-48 % Mean Corpuscular Volume 87.6 79-99 fL Mean Corpuscular Hemoglobin 28.1 27.0-33.0 pg Mean Corpuscular Hemoglobin Concent 32.1 32.0-36.0 g/dL Red Cell Distribution Width 15.3 11.0-15.5 % Platelet Count 292 130-400 K/uL Mean Platelet Volume 8.3 7.5-10.5 fL Immature Granulocyte % (Auto) 1.0 0-1 % Neutrophils (%) (Auto) 92.3 H 40.0-77.0 % Lymphocytes (%) (Auto) 5.1 L 21.0-51.0 % Monocytes (%) (Auto) 1.5 L 3.0-13.0 % Eosinophils (%) (Auto) 0.0 0.0-8.0 % Basophils (%) (Auto) 0.1 0.0-5.0 % Neutrophils # (Auto) 14.4 H 1.8-7.7 K/uL Lymphocytes # (Auto) 0.8 L 1.0-4.8 K/uL Monocytes # (Auto) 0.2 0.1-1.0 K/uL Eosinophils # (Auto) 0.00 0.00-0.70 K/uL Basophils # (Auto) 0.02 0.00-0.20 K/uL Absolute Immature Granulocyte (auto 0.15 0-1 K/uL Nucleated Red Blood Cells 0.0 0.0-0.19 % Chemistry Labs: Test 05/27/24 17:47 05/27/24 04:04 Range/Units Whole Blood Glucose 102 70-110 MG/DL Sodium Level 133 L 136-145 mmol/L Potassium Level 4.3 3.5-5.1 mmol/L Chloride Level 101 101-111 mmol/L Carbon Dioxide Level 24 21-32 mmol/L Blood Urea Nitrogen 72 H 7-18 mg/dL Creatinine 1.3 H 0.5-1.0 mg/dL Glomerular Filtration Rate Calc 43 >90 mL/min Random Glucose 114 H 70-105 mg/dL Total Calcium 9.2 8.5-10.1 mg/dL Magnesium Level 1.90 1.80-2.40 mg/dL Coagulation Labs: Test 05/27/24 04:04 Range/Units Prothrombin Time 10.1 9.6-11.6 SEC Prothromb Time International Ratio <= 0.93 0.85-1.15 DIAGNOSTICS / RADIOLOGY RESULTS: [ ] PLAN 05/27/2024: For now, going to continue current management for the patient. She will continue room air and we will continue to monitor oxygenation needs. I am going to decrease the hydrocortisone to 25 mg q.8 hours. The patient continues antibiotic therapy with IV Merrem and linezolid and we will follow the recommendation of the Infectious specialist. We will also continue to monitor the vital signs. The patient continues feeding on clear liquid diet and we will monitor bowel activity. She will remain on Relistor. So far, no bowel movements. We will also monitor her I's and O's. From our standpoint, the patient can be transferred out of the ICU. Case management is working on senior living facility placement. We will continue to monitor the patient's progress response to management. Further orders per attending and hospital course. NEURO: Minimize central acting medications as possible. Maintain fall precautions, adequate lighting during the day PULMONARY: Supplemental 02 as needed. Maintain aspiration precautions at all times CARDIOVASCULAR: Follow hemodynamics. Vital signs per facility protocol GI & NUTRITION: Continue with nutritional support. Continue stool softeners and laxatives as needed. KIDNEYS & ELECTROLYTES: Strict monitoring of intake, output and overall fluid balance. Avoid nephrotoxic medications to the extent possible. Medications to be dosed according to renal function. Monitor electrolytes and replace as needed ENDOCRINE: Maintain blood glucose between 100-180 at all times. Hypoglycemia protocol in place INFECTIOUS DISEASE: Trend temperature, WBC and procalcitonin level Follow cultures, deescalate antibiotics as soon as possible. Panculture if new onset fever ONCOLOGY/HEMATOLOGY/COAGULATION: Monitor for s/s of bleeding Monitor hemoglobin, coagulation studies as needed SKIN: Pressure ulcer prevention per facility protocol Specialty mattress ORTHO/REHAB: Continue PT/OT Prophylaxis: Continue GI and DVT prophylaxis Code Status: Full Resuscitation Disposition: TBD Other: Patient was seen, case was discussed with supervising MD and agreed upon. JOSE SPENCER NP May 27, 2024 18:49
[2024-05-28] MEDS: hydroCORTisone SOD SUCCINATE 100 MG/2 ML VIAL IV SCH (00:37)
[2024-05-28 03:28] VITALS: BP 155/86; PULSE 77; RESP 16; TEMP 97.8
--- NOTE | 2024-05-28 05:14 | NUR ---
NOTE PT REFUSED TO HAVE FINGER STICK GLUCOSE CHECK, PATIENT STATES "I AM NOT A DIABETIC".
[2024-05-28 07:13] LABS: HEMATOCRIT 27.2 % (36-48); MEAN CORPUSCULAR HEMOGLOBIN 27.7 pg (27.0-33.0); MEAN CORPUSCULAR HGB CONC 32.4 g/dL (32.0-36.0); MEAN CORPUSCULAR VOLUME 85.5 fL (79-99); RED BLOOD CELL COUNT(AUTO) 3.18 MIL/uL (4.00-5.50); RED CELL DISTRIBUTION WIDTH 15.1 % (11.0-15.5); WHITE BLOOD COUNT (AUTO) 13.7 K/uL (4.8-10.8)
[2024-05-28 07:27] LABS: CREATININE 1.1 mg/dL (0.5-1.0); MAGNESIUM 2.3 mg/dL (1.80-2.40); POTASSIUM 3.6 mmol/L (3.5-5.1)
[2024-05-28 08:00] VITALS: BP 154/80; PULSE 83; RESP 17; TEMP 97.5
[2024-05-28 12:00] VITALS: BP 155/85; PULSE 84; RESP 17; TEMP 97.7
--- NOTE | 2024-05-28 12:24 | PN ---
[facility] PROGRESS NOTE Date Patient Seen: May 28, 2024 Time of Visit: 12:24 Supervising Physician: [Dr. Hernandez] Primary Care Physician: Chapincito Guardado MD Outpatient Specialists: Inpatient Consults: LEATHA Farrell (Critical care team) , Dr Augustus Ferguson, Dr Eduardo PROBLEM LIST: Acute hypoxic respiratory failure, POA resolved septic shock POA , requiring Levophed, resolved Multifocal Pneumonia, POA, treated Small bowel obstruction POA , r/o clinically Acute complicated cystitis, POA, negative urine culture Hematuria POA, resolved Severe Dehydration, improved Acute kidney injury POA resolved Electrolyte derangement POA ( Hyponatremia, Hyperchloremia) History of chronic opioid use Frailty Debility History of chronic left hip dislocation, Opiate induced Illeus, Hypothyroidism, multiple recent hospitalizations with long hospital stay, opiate overdose w/ morphine, and fibromyalgia, Osteoarthritis , spinal cord stimulation (SCS) INTERVAL HISTORY: Patient is awake alert and oriented x3. As per RN she just turned off Levophed drip. Blood pressure 144/93 with a heart rate in the 80s respiratory rate of 20 saturating 98% with 2 L via nasal cannula and afebrile. Patient had large bowel movement overnight. Per General surgery patient can start clear liquid diet no plans for OR at this time. She continues on TPN. If patient tolerates chloride liquid diet we can stop TPN and start p.o. feeding. Urine output 1.7 L in the last 24 hours with a balance of +1.9 L we will stop c urrent IV fluids and give a one time dose of Lasix 20 mg IV push. On laboratory WBCs at 21.4 likely reactive from high-dose hydrocortisone that was started for refractory shock H&H was 8.1/25.8 seems to be slowly trending down, platelet count 321 K. On chemistries sodium 138 potassium 3.2 covered per protocol BUN 62 creatinine of 1.8 improved from yesterday which was 3.0 GFR of 29 and glucose of 212 mg/dL total calcium 8.1 BNP 569. No growth two blood cultures and no growth to urine culture. 05/26/2024: At the time of my evaluation, the patient was lying in bed. The staff nurse reports no overnight events. The patient is awake, alert and oriented x3. Currently, the patient is on room air and maintaining optimal oxygen saturation. On the monitor, she is hemodynamically stable. The patient is currently on a clear liquid diet and denies any nausea vomiting or diarrhea. Patient denies any abdominal pain and is so far tolerating her feedings. Last bowel movement was reported on 05/25/2024: No other complaint. 05/27/2024: At the time of my evaluation, the patient was lying in bed. Staff nurse present at the bedside. Family member was present. The patient was breathing on room air. A CT chest done on 05/26/2024, showed moderate bilateral pleural effusions bilateral basal atelectasis. There are scattered infiltrates on the right consistent with pneumonia. There was also suspicion for a spiculated nodule. She was hemodynamically stable on the monitor. No complaint shortness of breath or chest pain. The patient is tolerating clear liquid diet. She has not had a bowel movement despite the use Relistor. I's and O's showed a negative balance of 2200.0. On labs, the patient remained with elevated WBC count 15.6 today. Chemistry panel showed no major derangement. Renal parameters improving. The staff nurse reports no acute events overnight. No other complaint. 05/28 patient is evaluated at bedside. Her WBCs downtrending. She is weaned off supplemental oxygen, now on room air. Did have a bowel movement yesterday but has not had one today. She continues on clear liquid diet and tolerating. Continues on antibiotics for pneumonia. Did have a 15 mm nodule, patient was recommended to continue antibiotics for pneumonia and repeat CT imaging in 3-6 months for re-evaluation. Blood pressures are slightly elevated, we will stop hydrocortisone and continue fluids for pressure support. Patient continues on Relistor for constipation. Will optimize bowel regimen. Pending SNF per primary. REVIEW OF SYSTEMS: General:reports generalized body pain. Neurological: No fainting episodes or seizures. HEENT: No nasal congestion or nasal secretion. Respiratory: No cough, shortness of breath, or wheezing Cardiac: No chest pain or palpitations. Gastrointestinal:yes for nausea and much output to ng tube . Genitourinary: No dysuria hematuria. Skin: No rashes or lesions. Hematological: No bruises or bleeding. Musculoskeletal: reports chronic pain to hands and fingers, back and hip Psychiatric: No depression or panic attacks. PHYSICAL EXAM: GENERAL: Mental status improving weak, awake oriented x 3 GCS 15 HEENT: Sclera non icteric, moist mucosa NECK: Supple, no JVD, trachea midline LUNGS: Clear breath sounds bilaterally. No wheezes HEART: Regular rate and rhythm. Normal S1 and S2, without murmurs ABD: abdomen distended but soft non tender, Bowel sounds hypoactive EXT: No clubbing cyanosis or edema NEURO: AAOx3 no focal weakness Vital Signs (last 8hr) Date Time Temp Pulse Resp B/P (MAP) Pulse Ox O2 Delivery O2 Flow Rate FiO2 05/28/24 08:00 97.5 83 17 154/80 96 Room Air LABS: Hematology Labs: Test 05/28/24 07:05 05/27/24 04:04 Range/Units White Blood Count 13.7 H 4.8-10.8 K/uL Red Blood Count 3.18 L 4.00-5.50 MIL/uL Hemoglobin 8.8 L 12.0-16.0 g/dL Hematocrit 27.2 L 36-48 % Mean Corpuscular Volume 85.5 79-99 fL Mean Corpuscular Hemoglobin 27.7 27.0-33.0 pg Mean Corpuscular Hemoglobin Concent 32.4 32.0-36.0 g/dL Red Cell Distribution Width 15.1 11.0-15.5 % Platelet Count 321 130-400 K/uL Mean Platelet Volume 8.0 7.5-10.5 fL Nucleated Red Blood Cells 0.0 0.0-0.19 % Immature Granulocyte % (Auto) 1.0 0-1 % Neutrophils (%) (Auto) 92.3 H 40.0-77.0 % Lymphocytes (%) (Auto) 5.1 L 21.0-51.0 % Monocytes (%) (Auto) 1.5 L 3.0-13.0 % Eosinophils (%) (Auto) 0.0 0.0-8.0 % Basophils (%) (Auto) 0.1 0.0-5.0 % Neutrophils # (Auto) 14.4 H 1.8-7.7 K/uL Lymphocytes # (Auto) 0.8 L 1.0-4.8 K/uL Monocytes # (Auto) 0.2 0.1-1.0 K/uL Eosinophils # (Auto) 0.00 0.00-0.70 K/uL Basophils # (Auto) 0.02 0.00-0.20 K/uL Absolute Immature Granulocyte (auto 0.15 0-1 K/uL Chemistry Labs: Test 05/28/24 07:05 05/27/24 20:18 Range/Units Sodium Level 134 L 136-145 mmol/L Potassium Level 3.6 3.5-5.1 mmol/L Chloride Level 103 101-111 mmol/L Carbon Dioxide Level 22 21-32 mmol/L Blood Urea Nitrogen 62 H 7-18 mg/dL Creatinine 1.1 H 0.5-1.0 mg/dL Glomerular Filtration Rate Calc 53 >90 mL/min Random Glucose 95 70-105 mg/dL Total Calcium 9.4 8.5-10.1 mg/dL Magnesium Level 2.30 1.80-2.40 mg/dL Whole Blood Glucose 115 H 70-110 MG/DL Coagulation Labs: Test 05/27/24 04:04 Range/Units Prothrombin Time 10.1 9.6-11.6 SEC Prothromb Time International Ratio <= 0.93 0.85-1.15 DIAGNOSTICS / RADIOLOGY RESULTS: [Reviewed] PLAN 05/28/2024: For now, going to continue current management for the patient. She will continue room air and we will continue to monitor oxygenation needs. I am going to stop the hydrocortisone. The patient continues antibiotic therapy with IV Merrem and linezolid per ID. We will also continue to monitor the vital signs. The patient continues feeding on clear liquid diet and we will monitor bowel activity. She will remain on Relistor. Optimize bowel regimen with miralax and docusate. We will also monitor her I's and O's. From our standpoint, the patient can be transferred discharged to continue abx per ID. Case management is working on nursing home facility placement. We will continue to monitor the patient's progress response to management. Further orders per attending and hospital course. NEURO: Minimize central acting medications as possible. Maintain fall precautions, adequate lighting during the day PULMONARY: Supplemental 02 as needed. Maintain aspiration precautions at all times CARDIOVASCULAR: Follow hemodynamics. Vital signs per facility protocol GI & NUTRITION: Continue with nutritional support. Continue stool softeners and laxatives as needed. KIDNEYS & ELECTROLYTES: Strict monitoring of intake, output and overall fluid balance. Avoid nephrotoxic medications to the extent possible. Medications to be dosed according to renal function. Monitor electrolytes and replace as needed ENDOCRINE: Maintain blood glucose between 100-180 at all times. Hypoglycemia protocol in place INFECTIOUS DISEASE: Trend temperature, WBC and procalcitonin level Follow cultures, deescalate antibiotics as soon as possible. Panculture if new onset fever ONCOLOGY/HEMATOLOGY/COAGULATION: Monitor for s/s of bleeding Monitor hemoglobin, coagulation studies as needed SKIN: Pressure ulcer prevention per facility protocol Specialty mattress ORTHO/REHAB: Continue PT/OT Prophylaxis: Continue GI and DVT prophylaxis Code Status: Full Resuscitation Disposition: TBD Other: Patient was seen, case was discussed with supervising MD and agreed upon. RODRIGUEZ HAINES May 28, 2024 12:24
--- NOTE | 2024-05-28 13:29 | PN ---
NEPHROLOGY PROGRESS NOTE Date/Time Patient Seen: May 28, 2024 Reason for Consultation: 13:28 SUBJECTIVE: This is a 73-year-old female with past medical history of cervical cancer with hysterectomy, obesity, hypertension, hypothyroidism, fibromyalgia, chronic left hip with multiple surgeries, anemia She presented to the hospital secondary to abdominal pain, nausea, vomiting. The patient has small-bowel obstruction and pneumonia detected by CT scan. The patient is in ICU, critically ill, has been on pressors off and on with other comorbidities. She continues to be followed by General surgery for small-bowel obstruction, no surgical intervention planned Continued antibiotics for UTI. The patient has acute kidney injury. We has been consulted for renal failure. Renal function is improving Electrolytes are stable Hearn catheter is in place. She was seen in the medical floor, in no acute distress No family at the bedside REVIEW OF SYSTEMS: GENERAL: Negative for any nausea, vomiting, fevers, chills, or weight loss. NEUROLOGIC: Negative for any blurry vision, blind spots, double vision, facial asymmetry, dysphagia, dysarthria, hemiparesis, hemisensory deficits, vertigo, ataxia. HEENT: Negative for any head trauma, neck trauma, neck stiffness, photophobia, phonophobia, sinusitis, rhinitis. CARDIAC: Negative for any chest pain, dyspnea on exertion, paroxysmal nocturnal dyspnea, peripheral edema. PULMONARY: Negative for any shortness of breath, wheezing, COPD, or TB exposure. GASTROINTESTINAL: Negative for any abdominal pain, nausea, vomiting, bright red blood per rectum, melena. GENITOURINARY: Negative for any dysuria, hematuria, incontinence. INTEGUMENTARY: Negative for any rashes, cuts, insect bites. RHEUMATOLOGIC: Negative for any joint pains, photosensitive rashes, history of vasculitis or kidney problems. HEMATOLOGIC: Negative for any abnormal bruising, frequent infections or bleeding. Vital Signs (last 8hr) Date Time Temp Pulse Resp B/P (MAP) Pulse Ox O2 Delivery O2 Flow Rate FiO2 05/26/24 13:00 90 18 142/86 97 Room Air 05/26/24 12:00 96 Room Air* 0 21 05/26/24 12:00 98.4 88 22 143/61 96 Room Air 21 05/26/24 11:00 92 94 126/80 96 Room Air 05/26/24 10:00 82 14 131/75 95 Room Air 05/26/24 09:00 108 16 149/87 95 Room Air 05/26/24 08:00 98 Nasal Cannula* 2 28 05/26/24 08:00 99.0 72 10 138/78 97 Room Air 05/26/24 07:00 82 15 144/85 100 Nasal Cannula 2.0 05/26/24 06:46 74 14 130/77 100 Nasal Cannula 2.0 PHYSICAL EXAM: GENERAL: Alert and oriented x 3. No acute distress. Well-nourished. EYES: EOMI. Anicteric. HENT: Moist mucous membranes. No scleral icterus. No cervical lymphadenopathy. LUNGS: Clear to auscultation bilaterally. No accessory muscle use. CARDIOVASCULAR: Regular rate and rhythm. No murmur. No JVD. ABDOMEN: Soft, non-tender and non-distended. No palpable masses. EXTREMITIES: No edema. Non-tender. SKIN: No rashes or lesions. Warm. NEUROLOGIC: No focal neurological deficits. CN II-XII grossly intact, but not individually tested. PSYCHIATRIC: Cooperative. Appropriate mood and affect. Current Medications Medications (Trade) Dose Ordered Sig/Dionisio Route PRN Reason Start Time Stop Time Status Last Admin Dose Admin Famotidine (Pepcid 20mg Vial) 20 mg Q48H IV 05/23/24 21:00 05/23/24 19:37 DC Fat Emulsion Intravenous 250 ml @ 42 mls/hr MoWeFr@1000 IV 05/25/24 10:00 05/25/24 19:34 DC 05/25/24 09:14 42 MLS/HR Heparin Sodium (Porcine) (HEParin 5,000 UNIT VIAL) 5,000 unit Q12H SQ 05/23/24 21:00 06/22/24 20:59 05/26/24 08:33 5,000 UNIT Hydrocortisone Sodium Succinate (Solu-corTEF 100MG) 50 mg Q6H IV 05/24/24 14:00 05/25/24 10:08 DC 05/25/24 09:13 50 MG Hydrocortisone Sodium Succinate (Solu-corTEF 100MG) 50 mg Q8H IV 05/25/24 16:00 06/23/24 13:59 05/26/24 08:31 50 MG Hydromorphone HCl (DiLAUDid 0.5MG INJ) 0.2 mg Q6H PRN IVP SEVERE PAIN (7-10) 05/23/24 13:30 05/24/24 01:23 DC 05/24/24 00:08 0.2 MG Hydromorphone HCl (DiLAUDid 0.5MG INJ) 0.3 mg Q4HPRN PRN IVP SEVERE PAIN (7-10) 05/24/24 01:30 05/28/24 13:29 05/26/24 13:43 0.3 MG Hydromorphone HCl (DiLAUDid 0.5MG INJ) 0.5 mg Q6H PRN IVP SEVERE PAIN (7-10) 05/23/24 13:30 05/23/24 13:18 DC Insulin Human Regular (humuLIN R 100 UNIT/ML 3ML) INSULIN SLIDING SCAL... ACHS SQ 05/26/24 16:30 06/25/24 16:29 Linezolid 300 ml @ 150 mls/hr Q12H IV 05/23/24 11:30 06/02/24 11:29 05/26/24 11:32 150 MLS/HR Magnesium Sulfate 50 ml @ 0 mls/hr PROTOCOL PRN IV ad 05/23/24 17:00 06/22/24 16:59 05/24/24 08:58 25 MLS/HR Meropenem (Merrem) 1 gm Q24H IVPB 05/23/24 14:00 06/02/24 13:59 05/25/24 14:50 1 GM Methylnaltrexone [place] (reLIStor) 12 mg DAILY SQ 05/25/24 09:00 06/24/24 08:59 05/26/24 10:38 12 MG Norepinephrine 250 ml @ 0 mls/hr PROTOCOL IV 05/23/24 16:00 05/24/24 07:36 DC 05/24/24 01:40 51 MLS/HR Norepinephrine Bitartrate 250 ml @ 0 mls/hr PROTOCOL IV 05/24/24 08:00 06/23/24 07:59 Norepinephrine Bitartrate (Norepineph 16 Mg/250ml NS Premix) Protocol PROTOCOL IV 05/24/24 07:30 05/24/24 07:39 DC Pantoprazole Sodium (PROTonix 40MG INJ) 40 mg DAILY IVP 05/24/24 09:00 06/23/24 08:59 05/26/24 08:31 40 MG Pharmacy Profile Note (Lace Assessment) 1 each AD MISC 05/23/24 13:30 05/23/24 13:25 DC Potassium Chloride 100 ml @ 100 mls/hr AD PRN IV POTASSIUM PROTOCOL 05/25/24 19:30 06/24/24 19:29 Potassium Chloride (K-Dur/Klor-Con 20meq) 20 meq AD PRN PO POTASSIUM PROTOCOL 05/25/24 19:30 06/24/24 19:29 Potassium Chloride (KCl 10% Elixir 20meq/15ml) 20 meq AD PRN PO POTASSIUM PROTOCOL 05/25/24 19:30 06/24/24 19:29 05/26/24 05:37 20 MEQ Sodium Chloride 500 ml @ 0 mls/hr Q0M IV 05/24/24 10:00 06/23/24 09:59 05/24/24 09:54 1,200 MLS/HR Sodium Chloride 1,000 ml @ 125 mls/hr Q8H IV 05/23/24 13:30 06/22/24 13:29 05/26/24 12:26 125 MLS/HR Wound Care/ Dressing Products (Venelex Ointment Packet) 1 gm BID TP 05/24/24 21:00 05/25/24 07:07 DC 05/24/24 20:09 1 GM Wound Care/ Dressing Products (Venelex Ointment) 1 APPL BID TP 05/25/24 09:00 06/24/24 08:59 05/26/24 08:31 1 GM LABORATORY: [ ] Hematology Labs: Test 05/28/24 07:05 05/27/24 04:04 Range/Units White Blood Count 13.7 H 4.8-10.8 K/uL Red Blood Count 3.18 L 4.00-5.50 MIL/uL Hemoglobin 8.8 L 12.0-16.0 g/dL Hematocrit 27.2 L 36-48 % Mean Corpuscular Volume 85.5 79-99 fL Mean Corpuscular Hemoglobin 27.7 27.0-33.0 pg Mean Corpuscular Hemoglobin Concent 32.4 32.0-36.0 g/dL Red Cell Distribution Width 15.1 11.0-15.5 % Platelet Count 321 130-400 K/uL Mean Platelet Volume 8.0 7.5-10.5 fL Nucleated Red Blood Cells 0.0 0.0-0.19 % Immature Granulocyte % (Auto) 1.0 0-1 % Neutrophils (%) (Auto) 92.3 H 40.0-77.0 % Lymphocytes (%) (Auto) 5.1 L 21.0-51.0 % Monocytes (%) (Auto) 1.5 L 3.0-13.0 % Eosinophils (%) (Auto) 0.0 0.0-8.0 % Basophils (%) (Auto) 0.1 0.0-5.0 % Neutrophils # (Auto) 14.4 H 1.8-7.7 K/uL Lymphocytes # (Auto) 0.8 L 1.0-4.8 K/uL Monocytes # (Auto) 0.2 0.1-1.0 K/uL Eosinophils # (Auto) 0.00 0.00-0.70 K/uL Basophils # (Auto) 0.02 0.00-0.20 K/uL Absolute Immature Granulocyte (auto 0.15 0-1 K/uL Chemistry Labs: Test 05/28/24 07:05 05/27/24 20:18 Range/Units Sodium Level 134 L 136-145 mmol/L Potassium Level 3.6 3.5-5.1 mmol/L Chloride Level 103 101-111 mmol/L Carbon Dioxide Level 22 21-32 mmol/L Blood Urea Nitrogen 62 H 7-18 mg/dL Creatinine 1.1 H 0.5-1.0 mg/dL Glomerular Filtration Rate Calc 53 >90 mL/min Random Glucose 95 70-105 mg/dL Total Calcium 9.4 8.5-10.1 mg/dL Magnesium Level 2.30 1.80-2.40 mg/dL Whole Blood Glucose 115 H 70-110 MG/DL Coagulation Labs: Test 05/27/24 04:04 Range/Units Prothrombin Time 10.1 9.6-11.6 SEC Prothromb Time International Ratio <= 0.93 0.85-1.15 DIAGNOSTICS / RADIOLOGY: REASON: picc line placement ORDERING PHYSICIAN: MARCO JOLLY MD PROCEDURE: CXR1VW - CHEST 1VW Exam Type: CHEST 1VW Clinical Information: picc line placement Comparison: May 26, 2024 Findings: Right PICC line is noted with tip within the cavoatrial junction and there are no other interval changes. IMPRESSION: Right PICC line as noted. DICTATED BY: NGOC ELIZABETH MD DATE: 05/27/24 1049 REASON: Right pulmonary nodule ORDERING PHYSICIAN: JOSE SPENCER NP PROCEDURE: CHEST WO - CT CHEST W/O CONTRAST CT NONCONTRAST CHEST Comparison Study: none History: Right pulmonary nodule Technique: Helical CT of the chest without IV contrast at 5 mm collimation. Coronal and sagittal reformations also done. CT Dose Index (CTDI): 2.38 mGy Dose Length Product (DLP): 94.8 total mGy-cm Findings: The airway is intact. The trachea and major bronchi are unremarkable. The chest exam shows no pulmonary nodules or masses. There are bilateral moderate pleural effusions. Bilateral basal atelectasis is seen and there are scattered infiltrates of the right lung consistent with pneumonia. Infiltrates surround a stellate-looking area of the right upper lobe measuring 15 mm. These could represent a spiculated nodule. Follow-up to complete radiographic resolution of pneumonia is recommended and if the nodule persists, biopsy may be necessary. There is no pneumothorax. There is no evidence of pneumomediastinum. The nonenhanced exam of the jyothi and mediastinum is unremarkable. No evidence of hilar enlargement is seen. The aorta shows no aneurysmal dilatation or significant atheromatous calcification. No significant brachiocephalic vascular abnormalities are seen. The heart is unremarkable. It is not enlarged. No significant coronary arterial calcifications are seen. There is no pericardial effusion. The rib cage appears unremarkable. The soft tissues of the chest wall are unremarkable. The dorsal spine shows no significant abnormalities. IMPRESSION: There are bilateral moderate pleural effusions. Bilateral basal atelectasis is seen and there are scattered infiltrates of the right lung consistent with pneumonia. Infiltrates surround a stellate-looking area of the right upper lobe measuring 15 mm. These could represent a spiculated nodule. Follow-up to complete radiographic resolution of pneumonia is recommended and if the nodule persists, biopsy may be necessary. This study was performed using dose reduction techniques to include automated exposure control and/or adjustment of the mA and/or kV according to patient size. DICTATED BY: NGOC ELIZABETH MD DATE: 05/27/24 0819 REASON: duspected pneumonia ORDERING PHYSICIAN: DEJAN STOREY PROCEDURE: CXR1VW - CHEST 1VW Exam Type: CHEST 1VW Clinical Information: duspected pneumonia Comparison: None Findings: Pulmonary pattern is as before. No worrisome interval changes have taken place. Impression: Stable exam. DICTATED BY: NGOC ELIZABETH MD DATE: 05/25/24 1549 REASON: CENTRAL LINE PLACEMENT ORDERING PHYSICIAN: SAVANNA GRAF MD PROCEDURE: CXR1VW - CHEST 1VW CHEST 1VW HISTORY: Right IJ line placement COMPARISON: 05/23/2024 FINDINGS: A frontal projection of the chest was obtained. No acute pulmonary infiltrates is seen. Prominent interstitial markings are seen. There may be a hiatal hernia. The heart is borderline enlarged. All the lines and tubes are again seen in place. No evidence of aortic calcification is seen. IMPRESSION: 1. No acute pulmonary infiltrate is seen. DICTATED BY: YOVANNY BUTTERFIELD MD DATE: 05/23/24 1609 REASON: NG tube insertion, Please verify placement ORDERING PHYSICIAN: LINDSEY FRAIRE MD PROCEDURE: ABD 1VW - ABD 1VW Exam Type: ABD 1VW Clinical Information: NG tube insertion, Please verify placement Comparison: None Findings and impression: Nasogastric tube tip in the distal esophagus. Consider advancing. DICTATED BY: NGOC ELIZABETH MD DATE: 05/23/24 1426 REASON: abd distension , sepsis ORDERING PHYSICIAN: SAVANNA GRAF MD PROCEDURE: ABD PEL WO - CT ABDOMEN/PELVIS W/O CONTRAST Exam Type: CT ABDOMEN/PELVIS W/O CONTRAST Clinical Information: abd distension , sepsis Comparison: None CT Dose Index (CTDI): 10.20 mGy Dose Length Product (DLP): 530.00 total mGy-cm PROTOCOL: Routine noncontrast helical scanning of the abdomen and pelvis was performed at 5mm collimation. Findings: No evidence of nephro or ureterolithiasis is found. No hydronephrosis or ureteral dilatation is seen. Bilateral basal pneumonic infiltrates. Follow-up is advised. The stomach is distended. The spleen is unremarkable. It is not enlarged. The pancreas shows normal anatomy. It is not fatty replaced. It shows no lesions. The pancreatic duct is not dilated. The gallbladder is unremarkable. It shows no cholelithiasis. The gallbladder wall is normal in thickness. There is no pericholecystic fluid. The is no acute or chronic inflammation noted. The adrenal glands are unremarkable. There is no enlargement. No lesions are noted. The liver is unremarkable. It shows no focal masses. The appendix is unremarkable. It shows no evidence of inflammation. No appendicolith is seen. Dilatation of multiple small bowel loops is seen with distal transition point consistent with distal small bowel obstruction. The colon is unremarkable. The urinary bladder is unremarkable. There is no wall thickening to suggest tumor or inflammation. There are no intraluminal calculi. There are no diverticula. There is no evidence of chronic bladder outlet obstruction. There is no evidence of urinary bladder distention to suggest urinary retention. The other pelvic structures are unremarkable. Status post bilateral hip replacement with cephalad dislocation of the left femoral component. IMPRESSION: Small bowel obstruction. Bilateral basal pneumonia. This study was performed using dose reduction techniques to include automated exposure control and/or adjustment of the mA and/or kV according to patient size. DICTATED BY: NGOC ELIZABETH MD DATE: 05/23/24 1156 REASON: DISTENDED ABD ORDERING PHYSICIAN: SAVANNA GRAF MD PROCEDURE: CXR1VW - CHEST 1VW Exam Type: CHEST 1VW Clinical Information: DISTENDED ABD Comparison: None Findings: The lungs are clear of infiltrates. The heart is normal in size. The bony and soft tissue structures of the chest are unremarkable. Impression: Clear lungs. DICTATED BY: NGOC ELIZABETH MD DATE: 05/23/24 0949 REASON: DISTENDED ABD ORDERING PHYSICIAN: SAVANNA GRAF MD PROCEDURE: ABD 1VW - ABD 1VW Exam Type: ABD 1VW Clinical Information: DISTENDED ABD Comparison: None Findings: Abdomen demonstrates no evidence of pathologic calcification or soft tissue mass. There are no radiopacities to suggest calculous disease. The intestinal gas pattern is within normal limits without evidence of dilatation to suggest obstruction or adynamic ileus. Status post bilateral hip replacement with superior displacement of the femoral from the acetabular component on the left side. Postoperative changes lumbar spine. IMPRESSION: Normal abdomen. DICTATED BY: NGOC ELIZABETH MD DATE: 05/23/24 0948 ASSESSMENT: Anemia Acute on chronic renal failure Hypotension Small-bowel obstruction Opiate induced ileus Medical noncompliance UTI Dehydration Hyponatremia Hypothyroidism Fibromyalgia Depression PLAN: Labs, diagnostic, radiologic exams reviewed and interpreted by myself and supervising physician. We have reviewed external records in detail Require close monitoring of renal function and electrolytes Order CBC, CMP, and electrolytes in am Continue with antibiotics Renal diabetic diet BiPAP as necessary, for respiratory distress IV pressors as needed Monitor blood pressure adjust medication doses as needed Avoid hypotensive episodes May use Dilaudid 0.5 mg IV every 6 hours as needed for severe pain Monitor blood sugars Strict intake, output, and daily weight should be monitored Please renally adjust medications Avoid nephrotoxic and nonsteroidal drugs Avoid contrast if possible Will continue to monitor renal function, anemia, electrolytes Treatment plan discussed with patient Questions were answered We have discussed with the other team physicians in detail about the care plan We will continue to monitor the patient closely ATTESTATION BY PHYSICIAN I have seen and examined the patient. I reviewed the documentation, medical decision making, and treatment plan as noted by the mid-level provider above. I agree with the findings and plan of care. GERI LANDRUM MD, [facility] May 28, 2024 13:29
--- NOTE | 2024-05-28 13:50 | PN ---
[facility] PROGRESS NOTE Date of Service: May 28, 2024 Time of Service: 13:48 SUBJECTIVE: [ ] This 73-year-old female with past medical history of hypertension hypothyroidism, diabetes mellitus type, history of chronic left hip pain with hip dislocation, anemia presented to the hospital secondary to abdominal pain, nausea, vomiting. Labs were notable for white count of 38.1, hemoglobin was 11.5, platelet count is 447 K, sodium is 128, potassium was 4.6, chloride is 86, creatinine is 4.7, BUN is 67, CK is 574, calcium is 10.5, glucose is 130, lactic acid is two point, troponin is negative x1. Patient underwent CT abdomen pelvis which showed small bowel obstruction. Concern for possible bilateral basal pneumonia. Patient admitted to the intensive care unit for further evaluation and medical management. Patient is seen and examined bedside, she is awake, following commands, NPO, NG tube connected to intermittent suction, discussed with the RN, 1.6 L output since last night, BP 113/65, heart rate 108, saturating 96% 2 L nasal cannula. Remains on pressor support with Levophed, getting broad-spectrum IV antibiotics during my visit. WBC trending down 20 point, hemoglobin 8.5, 26.6. BUN 62, creatinine 3.0, magnesium 1.6. Chest x-ray no acute pulmonary infiltrate seen. Follow repeat KUB. Monitor renal function in a.m. awaiting surgical recommendations to see if the patient will be taken to the operating room for exploration. 2/3 patient seen at bedside, no acute events overnight. She has had one bowel movement since admission and has been weaned off pressors. She has been afebrile, hemodynamically stable saturating 99% on 2 L nasal cannula, we will be weaned as able. WBC is stable at 21.4, similar to yesterday, hemoglobin decreased from 8.5 down to 8.1, platelets decreased from 353 down to 321, creatinine improved from 3.0 down to 1.8, potassium decreased from 3.5 down to 2.2, remainder of her labs are relatively unremarkable. With these changes in lab suggest that she was dehydrated with TERRANCE on admission. Cultures are no growth to date, we will continue with empiric antibiotics per Infectious Disease recommendations. 2/4 seen at bedside, no acute events overnight. Nursing reports one bowel movement yesterday, she has been afebrile, hemodynamically stable saturating well on room air. WBC improved from 21.4 down to 15.6, hemoglobin decreased from 8.1 down to 7.6, we will continue to trend, sodium decreased from 138 down to 135, potassium improved from 3.2 up to 3.4, creatinine improved from 1.8 down to 1.4, remainder of her labs are relatively unremarkable. Cultures are no growth to date. Patient is started on clear liquid diet, we will continue to monitor 05/27 patient seen at bedside, no acute events overnight. No bowel movement ye sterday however she is tolerating a clear liquid diet. WBC stable at 15.6, same as yesterday, hemoglobin improved from 7.6 up to 8.4, sodium decreased from 135 down to 133, creatinine improved from 1.4 down to 1.3, remainder of her labs are relatively unremarkable. [facility] will be [facility] to [facility] her care. Blood and urine cultures are no growth to date. We will restart home fentanyl patch 05/28 patient is seen and examined at bedside, no acute events overnight, patient on clear liquid diet, tolerating well. BP 155/85, afebrile, saturating normal room air. She denied chest pain, shortness shortness for breath, no nausea, no vomiting. Patient with midline to the right upper extremity. Getting IV antibiotics at the time of my visit, WBC trending down 13.7 today. Hemoglobin stable at 8.8. Patient on fentanyl patch 75 mcg topical Q 78 hours. Patient remains on naltrexone 12 mg subcutaneously daily. Patient complaining of generalized body pain. We will add Dilaudid 0.2 mg IV q.4 hours p.r.n.. Pending acceptance to prison facility for continuation of medical care. In the meantime we will advanced diet to soft diet. Follow a.m. labs. REVIEW OF SYSTEMS 12 point review of systems negative unless noted in HPI PHYSICAL EXAM GENERAL APPEARANCE: The patient is awake, alert, and oriented, in no acute cardiopulmonary distress. Appears frail NEUROLOGICAL: Cranial nerves II-XII grossly intact. Motor is 5/5 in bilateral upper and lower extremities proximal to distal. No sensory deficits. HEENT: Face is symmetric. Pupils are equal and reactive. Extraocular movements are intact. NECK: Supple. No JVD. No thyromegaly. No submental, submandibular, pre- /postauricular, occipital or supraclavicular lymphadenopathy. CHEST: Normal chest expansion. No Telemetry. LUNGS: Absence of any rales, rhonchi or any wheezing. CARDIOVASCULAR: Regular. S1 and S2 normal. No appreciable rubs, murmurs or gallops. ABDOMEN: Mildly distended, mild diffuse tenderness. : Deferred. No [place]. EXTREMITIES: Non-edematous and not cyanotic. No clubbing. Good capillary refill. SKIN: No skin breakdown. Vital Signs (last 8hr) Date Time Temp Pulse Resp B/P (MAP) Pulse Ox O2 Delivery O2 Flow Rate FiO2 05/28/24 12:00 97.7 84 17 155/85 97 Room Air 05/28/24 08:00 97.5 83 17 154/80 96 Room Air LABS: Laboratory: Test 05/28/24 07:05 05/27/24 20:18 05/27/24 04:04 Range/Units White Blood Count 13.7 H 4.8-10.8 K/uL Red Blood Count 3.18 L 4.00-5.50 MIL/uL Hemoglobin 8.8 L 12.0-16.0 g/dL Hematocrit 27.2 L 36-48 % Mean Corpuscular Volume 85.5 79-99 fL Mean Corpuscular Hemoglobin 27.7 27.0-33.0 pg Mean Corpuscular Hemoglobin Concent 32.4 32.0-36.0 g/dL Red Cell Distribution Width 15.1 11.0-15.5 % Platelet Count 321 130-400 K/uL Mean Platelet Volume 8.0 7.5-10.5 fL Nucleated Red Blood Cells 0.0 0.0-0.19 % Sodium Level 134 L 136-145 mmol/L Potassium Level 3.6 3.5-5.1 mmol/L Chloride Level 103 101-111 mmol/L Carbon Dioxide Level 22 21-32 mmol/L Blood Urea Nitrogen 62 H 7-18 mg/dL Creatinine 1.1 H 0.5-1.0 mg/dL Glomerular Filtration Rate Calc 53 >90 mL/min Random Glucose 95 70-105 mg/dL Total Calcium 9.4 8.5-10.1 mg/dL Magnesium Level 2.30 1.80-2.40 mg/dL Whole Blood Glucose 115 H 70-110 MG/DL Immature Granulocyte % (Auto) 1.0 0-1 % Neutrophils (%) (Auto) 92.3 H 40.0-77.0 % Lymphocytes (%) (Auto) 5.1 L 21.0-51.0 % Monocytes (%) (Auto) 1.5 L 3.0-13.0 % Eosinophils (%) (Auto) 0.0 0.0-8.0 % Basophils (%) (Auto) 0.1 0.0-5.0 % Neutrophils # (Auto) 14.4 H 1.8-7.7 K/uL Lymphocytes # (Auto) 0.8 L 1.0-4.8 K/uL Monocytes # (Auto) 0.2 0.1-1.0 K/uL Eosinophils # (Auto) 0.00 0.00-0.70 K/uL Basophils # (Auto) 0.02 0.00-0.20 K/uL Absolute Immature Granulocyte (auto 0.15 0-1 K/uL Prothrombin Time 10.1 9.6-11.6 SEC Prothromb Time International Ratio <= 0.93 0.85-1.15 Current Medications Medications (Trade) Dose Ordered Sig/Dionisio Route PRN Reason Start Time Stop Time Status Last Admin Dose Admin Famotidine (Pepcid 20mg Vial) 20 mg Q48H IV 05/23/24 21:00 05/23/24 19:37 DC Fat Emulsion Intravenous 250 ml @ 42 mls/hr MoWeFr@1000 IV 05/25/24 10:00 05/25/24 19:34 DC 05/25/24 09:14 42 MLS/HR Fentanyl (DURAgesic 75 MCG/HR PATCH) 75 mcg Q3D TD 05/27/24 16:30 06/01/24 16:29 Heparin Sodium (Porcine) (HEParin 5,000 UNIT VIAL) 5,000 unit Q12H SQ 05/23/24 21:00 06/22/24 20:59 05/28/24 10:09 5,000 UNIT Hydrocortisone Sodium Succinate (Solu-corTEF 100MG) 25 mg Q8H IV 05/28/24 00:00 06/27/24 00:00 05/28/24 10:03 25 MG Hydrocortisone Sodium Succinate (Solu-corTEF 100MG) 50 mg Q6H IV 05/24/24 14:00 05/25/24 10:08 DC 05/25/24 09:13 50 MG Hydrocortisone Sodium Succinate (Solu-corTEF 100MG) 50 mg Q8H IV 05/25/24 16:00 05/27/24 16:14 DC 05/27/24 08:20 50 MG Hydromorphone HCl (DiLAUDid 0.5MG INJ) 0.2 mg Q6H PRN IVP SEVERE PAIN (7-10) 05/23/24 13:30 05/24/24 01:23 DC 05/24/24 00:08 0.2 MG Hydromorphone HCl (DiLAUDid 0.5MG INJ) 0.3 mg Q4HPRN PRN IVP SEVERE PAIN (7-10) 05/24/24 01:30 05/28/24 13:29 DC 05/28/24 12:37 0.3 MG Hydromorphone HCl (DiLAUDid 0.5MG INJ) 0.5 mg Q6H PRN IVP SEVERE PAIN (7-10) 05/23/24 13:30 05/23/24 13:18 DC Insulin Human Regular (humuLIN R 100 UNIT/ML 3ML) INSULIN SLIDING SCAL... ACHS SQ 05/26/24 16:30 06/25/24 16:29 Linezolid 300 ml @ 150 mls/hr Q12H IV 05/23/24 11:30 06/02/24 11:29 05/27/24 22:58 150 MLS/HR Magnesium Sulfate 50 ml @ 0 mls/hr PROTOCOL PRN IV ad 05/23/24 17:00 06/22/24 16:59 05/27/24 09:39 25 MLS/HR Meropenem (Merrem 1gm) 1 gm Q24H IVPB 05/23/24 14:00 06/02/24 13:59 05/27/24 12:55 1 GM Methylnaltrexone [place] (reLIStor) 12 mg DAILY SQ 05/25/24 09:00 06/24/24 08:59 05/27/24 10:00 12 MG Norepinephrine 250 ml @ 0 mls/hr PROTOCOL IV 05/23/24 16:00 05/24/24 07:36 DC 05/24/24 01:40 51 MLS/HR Norepinephrine Bitartrate 250 ml @ 0 mls/hr PROTOCOL IV 05/24/24 08:00 3/4/25 07:59 Norepinephrine Bitartrate (Norepineph 16 Mg/250ml NS Premix) Protocol PROTOCOL IV 05/24/24 07:30 05/24/24 07:39 DC Pantoprazole Sodium (PROTonix 40MG INJ) 40 mg DAILY IVP 05/24/24 09:00 06/23/24 08:59 05/28/24 10:03 40 MG Pharmacy Profile Note (Lace Assessment) 1 each AD MISC 05/23/24 13:30 05/23/24 13:25 DC Potassium Chloride 100 ml @ 100 mls/hr AD PRN IV POTASSIUM PROTOCOL 05/25/24 19:30 06/24/24 19:29 Potassium Chloride (K-Dur/Klor-Con 20meq) 20 meq AD PRN PO POTASSIUM PROTOCOL 05/25/24 19:30 06/24/24 19:29 Potassium Chloride (KCl 10% Elixir 20meq/15ml) 20 meq AD PRN PO POTASSIUM PROTOCOL 05/25/24 19:30 06/24/24 19:29 05/26/24 05:37 20 MEQ Sodium Chloride 500 ml @ 0 mls/hr Q0M IV 05/24/24 10:00 06/23/24 09:59 05/24/24 09:54 1,200 MLS/HR Sodium Chloride 1,000 ml @ 125 mls/hr Q8H IV 05/23/24 13:30 06/22/24 13:29 05/27/24 12:57 125 MLS/HR Wound Care/ Dressing Products (Venelex Ointment Packet) 1 gm BID TP 05/24/24 21:00 05/25/24 07:07 DC 05/24/24 20:09 1 GM Wound Care/ Dressing Products (Venelex Ointment) 1 APPL BID TP 05/25/24 09:00 06/24/24 08:59 05/28/24 10:10 1 GM DIAGNOSTICS / RADIOLOGY: [ ] ASSESSMENT: Severe sepsis, resolved POA Hypotension resolved POA Small bowel obstruction, ruled out POA Opiate induced ileus Medical non-compliance UTI, ruled out POA Dehydration, resolved Acute kidney injury, improving POA Hyponatremia, improving Mild CK elevation Hyperchloremia History of chronic opioid use Frailty Debility History of chronic left hip dislocation POA PLAN: - patient remains admitted to the ICU -Start clear liquid diet -Continue methylnatrexone -Continue TPN -Continue broad spectrum antibiotics -ID consulted, appreciate recommendations -reference to acute kidney injury. Continue supportive care with IV fluids -Nephrology consultation requested, follow input recommendation -critical care input noted and appreciated -patient will be on Dilaudid for pain control -further orders per hospitalization course. Disposition: Pending improvement in clinical status Greater than 35 minutes ICU time spent in care of patient MARTIN GALINDO MD May 28, 2024 13:50
[2024-05-28 16:00] VITALS: BP 143/74; PULSE 74; RESP 17; TEMP 97.5; O2SAT 97
--- NOTE | 2024-05-28 17:25 | PN ---
INFECTIOUS DISEASE PROGRESS NOTE Date of Service: May 28, 2024 SUBJECTIVE: This is a 73-year-old female patient who was admitted to the hospital with chief complaint of abdominal pain, nausea or vomiting. A CT of the abdomen/pelvis done on admission showed small bowel obstruction and bilateral pneumonia. Patient's urinalysis was positive and the WBC was 38.1. Patient was on acute renal failure with BUN of 67 and creatinine of 4.3. General surgery was consulted and following. Patient however wants to wait on any surgical intervention. Patient was seen and examined at bedside in room 216. Patient is awake, alert and oriented x 3. WBC continues trending down and is 13.7 this morning. Nursing to remove central line. Will continue on Meropenem and linezolid. Renal function continues to improve, BUN is 62 and creatinine of 1.1 today. Patient has been referred to [facility] and pending insurance authorization. PHYSICAL EXAM EYES: Anicteric. Pupils equal and reactive. HENT: No oral thrush seen, moist Oral mucosa NECK: Supple, no JVD or thyromegaly. LUNGS: Good air entry. No rales, no rhonchi. Oxygen via nasal cannula. CARDIOVASCULAR: S1, S2 regular. No murmur heard. ABDOMEN: Soft, non tender, bowel sounds present, no organomegaly CENTRAL NERVOUS SYSTEM: Awake, alert, oriented x 3. No focal deficits. SKIN: No rashes, no swelling. LYMPHATICS: No peripheral lymphadenopathy MUSCULOSKELETAL: No joint swelling, erythema or tenderness. EXTREMITIES: No cyanosis or clubbing BACK: No deformity, no pressure ulcer. GENITOURINARY: No dysuria or hematuria Vital Sign (Last 12 Hours) 05/28/24 05/28/24 08:00 12:00 Temp 97.5 97.7 Pulse 83 84 Resp 17 17 B/P (MAP) 154/80 155/85 Pulse Ox 96 97 O2 Delivery Room Air Room Air Intake & Output (last 24hrs) 05/27/24 05/27/24 05/28/24 15:00 23:00 07:00 Intake Total 1350.0 ml 250 ml Output Total 600 ml Balance 1350.0 ml -350 ml LABS: Laboratory: Test 05/28/24 07:05 05/27/24 20:18 05/27/24 04:04 Range/Units White Blood Count 13.7 H 4.8-10.8 K/uL Red Blood Count 3.18 L 4.00-5.50 MIL/uL Hemoglobin 8.8 L 12.0-16.0 g/dL Hematocrit 27.2 L 36-48 % Mean Corpuscular Volume 85.5 79-99 fL Mean Corpuscular Hemoglobin 27.7 27.0-33.0 pg Mean Corpuscular Hemoglobin Concent 32.4 32.0-36.0 g/dL Red Cell Distribution Width 15.1 11.0-15.5 % Platelet Count 321 130-400 K/uL Mean Platelet Volume 8.0 7.5-10.5 fL Nucleated Red Blood Cells 0.0 0.0-0.19 % Sodium Level 134 L 136-145 mmol/L Potassium Level 3.6 3.5-5.1 mmol/L Chloride Level 103 101-111 mmol/L Carbon Dioxide Level 22 21-32 mmol/L Blood Urea Nitrogen 62 H 7-18 mg/dL Creatinine 1.1 H 0.5-1.0 mg/dL Glomerular Filtration Rate Calc 53 >90 mL/min Random Glucose 95 70-105 mg/dL Total Calcium 9.4 8.5-10.1 mg/dL Magnesium Level 2.30 1.80-2.40 mg/dL Whole Blood Glucose 115 H 70-110 MG/DL Immature Granulocyte % (Auto) 1.0 0-1 % Neutrophils (%) (Auto) 92.3 H 40.0-77.0 % Lymphocytes (%) (Auto) 5.1 L 21.0-51.0 % Monocytes (%) (Auto) 1.5 L 3.0-13.0 % Eosinophils (%) (Auto) 0.0 0.0-8.0 % Basophils (%) (Auto) 0.1 0.0-5.0 % Neutrophils # (Auto) 14.4 H 1.8-7.7 K/uL Lymphocytes # (Auto) 0.8 L 1.0-4.8 K/uL Monocytes # (Auto) 0.2 0.1-1.0 K/uL Eosinophils # (Auto) 0.00 0.00-0.70 K/uL Basophils # (Auto) 0.02 0.00-0.20 K/uL Absolute Immature Granulocyte (auto 0.15 0-1 K/uL Prothrombin Time 10.1 9.6-11.6 SEC Prothromb Time International Ratio <= 0.93 0.85-1.15 ASSESSMENT: Multifocal pneumonia. Urinary tract infection. Abdominal pain. Small-bowel obstruction Leukocytosis, resolving. Acute on chronic renal failure, improving. Dehydration. PLAN: Continue Meropenem IV. Continue linezolid IV. Continue GI prophylaxis. Continue pain management. General surgery has been consulted and following. We will monitor electrolytes. Case management working on SNF placement. This case was reviewed and discussed with my supervising physician and the above assessment and plan was formulated and agreed upon. ATTESTATION BY PHYSICIAN I have seen and examined the patient. I reviewed the documentation, medical dec ision making, and treatment plan as noted by the mid-level provider above. I agree with the findings and plan of care. GOSIA INIGUEZ MD, [facility] May 28, 2024 17:25
[2024-05-28] MEDS: 0.9%NACL 1000ML 1,000 ML IV SCH (17:43)
[2024-05-28] MEDS: hydroMORPHone 0.5 MG SYG (0.5MG/0.5ML) IVP PRN (19:36)
[2024-05-28 20:00] VITALS: BP 151/87; PULSE 71; RESP 16; TEMP 97.8
[2024-05-28 20:27] VITALS: O2SAT 96
[2024-05-29] VITALS: BP 146/83; PULSE 80; RESP 20; TEMP 97.9
[2024-05-29 04:00] VITALS: BP 143/82; PULSE 72; RESP 20; TEMP 98
[2024-05-29 06:41] LABS: HEMATOCRIT 24.6 % (36-48); MEAN CORPUSCULAR HEMOGLOBIN 28.3 pg (27.0-33.0); MEAN CORPUSCULAR HGB CONC 32.9 g/dL (32.0-36.0); RED BLOOD CELL COUNT(AUTO) 2.86 MIL/uL (4.00-5.50); RED CELL DISTRIBUTION WIDTH 14.8 % (11.0-15.5); WHITE BLOOD COUNT (AUTO) 13.1 K/uL (4.8-10.8)
[2024-05-29 07:05] LABS: ALBUMIN 1.5 g/dL (3.5-5.0); BILIRUBIN,TOTAL 0.3 mg/dL (0.2-1.0); CREATININE 0.9 mg/dL (0.5-1.0); MAGNESIUM 1.9 mg/dL (1.80-2.40); POTASSIUM 3.3 mmol/L (3.5-5.1); TOTAL PROTEIN, SERUM 4.4 g/dL (6.0-8.3)
[2024-05-29 08:00] VITALS: BP 150/86; PULSE 78; RESP 18; TEMP 97.8; O2SAT 96
--- NOTE | 2024-05-29 09:31 | PN ---
[facility] PROGRESS NOTE Date of Service: May 29, 2024 Time of Service: 09:30 SUBJECTIVE: [ ] This 73-year-old female with past medical history of hypertension hypothyroidism, diabetes mellitus type, history of chronic left hip pain with hip dislocation, anemia presented to the hospital secondary to abdominal pain, nausea, vomiting. Labs were notable for white count of 38.1, hemoglobin was 11.5, platelet count is 447 K, sodium is 128, potassium was 4.6, chloride is 86, creatinine is 4.7, BUN is 67, CK is 574, calcium is 10.5, glucose is 130, lactic acid is two point, troponin is negative x1. Patient underwent CT abdomen pelvis which showed small bowel obstruction. Concern for possible bilateral basal pneumonia. Patient admitted to the intensive care unit for further evaluation and medical management. Patient is seen and examined bedside, she is awake, following commands, NPO, NG tube connected to intermittent suction, discussed with the RN, 1.6 L output since last night, BP 113/65, heart rate 108, saturating 96% 2 L nasal cannula. Remains on pressor support with Levophed, getting broad-spectrum IV antibiotics during my visit. WBC trending down 20 point, hemoglobin 8.5, 26.6. BUN 62, creatinine 3.0, magnesium 1.6. Chest x-ray no acute pulmonary infiltrate seen. Follow repeat KUB. Monitor renal function in a.m. awaiting surgical recommendations to see if the patient will be taken to the operating room for exploration. 2/3 patient seen at bedside, no acute events overnight. She has had one bowel movement since admission and has been weaned off pressors. She has been afebrile, hemodynamically stable saturating 99% on 2 L nasal cannula, we will be weaned as able. WBC is stable at 21.4, similar to yesterday, hemoglobin decreased from 8.5 down to 8.1, platelets decreased from 353 down to 321, creatinine improved from 3.0 down to 1.8, potassium decreased from 3.5 down to 2.2, remainder of her labs are relatively unremarkable. With these changes in lab suggest that she was dehydrated with TERRANCE on admission. Cultures are no growth to date, we will continue with empiric antibiotics per Infectious Disease recommendations. 2/4 seen at bedside, no acute events overnight. Nursing reports one bowel movement yesterday, she has been afebrile, hemodynamically stable saturating well on room air. WBC improved from 21.4 down to 15.6, hemoglobin decreased from 8.1 down to 7.6, we will continue to trend, sodium decreased from 138 down to 135, potassium improved from 3.2 up to 3.4, creatinine improved from 1.8 down to 1.4, remainder of her labs are relatively unremarkable. Cultures are no growth to date. Patient is started on clear liquid diet, we will continue to monitor 05/27 patient seen at bedside, no acute events overnight. No bowel movement ye sterday however she is tolerating a clear liquid diet. WBC stable at 15.6, same as yesterday, hemoglobin improved from 7.6 up to 8.4, sodium decreased from 135 down to 133, creatinine improved from 1.4 down to 1.3, remainder of her labs are relatively unremarkable. Patient will be referred to longterm to continue her care. Blood and urine cultures are no growth to date. We will restart home fentanyl patch 05/28 patient is seen and examined at bedside, no acute events overnight, patient on clear liquid diet, tolerating well. BP 155/85, afebrile, saturating normal room air. She denied chest pain, shortness shortness for breath, no nausea, no vomiting. Patient with midline to the right upper extremity. Getting IV antibiotics at the time of my visit, WBC trending down 13.7 today. Hemoglobin stable at 8.8. Patient on fentanyl patch 75 mcg topical Q 78 hours. Patient remains on naltrexone 12 mg subcutaneously daily. Patient complaining of generalized body pain. We will add Dilaudid 0.2 mg IV q.4 hours p.r.n.. Pending acceptance to longterm facility for continuation of medical care. In the meantime we will advanced diet to soft diet. Follow a.m. labs. 05/29 05/28 patient is seen and examined at bedside, no acute events overnight, patient started on soft diet yesterday. Patient with a midline to the right upper extremity, getting IV antibiotics at the time of my visit.Patient on fentanyl patch 75 mcg topical Q 78 hours. Patient remains on naltrexone 12 mg subcutaneously daily. We will discuss discharge plan with case management today to longterm facility. Continue to follow a.m. labs REVIEW OF SYSTEMS 12 point review of systems negative unless noted in HPI PHYSICAL EXAM GENERAL APPEARANCE: The patient is awake, alert, and oriented, in no acute cardiopulmonary distress. Appears frail NEUROLOGICAL: Cranial nerves II-XII grossly intact. Motor is 5/5 in bilateral upper and lower extremities proximal to distal. No sensory deficits. HEENT: Face is symmetric. Pupils are equal and reactive. Extraocular movements are intact. NECK: Supple. No JVD. No thyromegaly. No submental, submandibular, pre- /postauricular, occipital or supraclavicular lymphadenopathy. CHEST: Normal chest expansion. No Telemetry. LUNGS: Absence of any rales, rhonchi or any wheezing. CARDIOVASCULAR: Regular. S1 and S2 normal. No appreciable rubs, murmurs or gallops. ABDOMEN: Mildly distended, mild diffuse tenderness. : Deferred. No [place]. EXTREMITIES: Non-edematous and not cyanotic. No clubbing. Good capillary refill. SKIN: No skin breakdown. Vital Signs (last 8hr) Date Time Temp Pulse Resp B/P (MAP) Pulse Ox O2 Delivery O2 Flow Rate FiO2 05/29/24 08:00 97.9 78 18 150/86 97 Room Air 05/29/24 04:00 98.1 72 20 143/82 98 Room Air LABS: Laboratory: Test 05/29/24 06:23 05/27/24 20:18 Range/Units White Blood Count 13.1 H 4.8-10.8 K/uL Red Blood Count 2.86 L 4.00-5.50 MIL/uL Hemoglobin 8.1 L 12.0-16.0 g/dL Hematocrit 24.6 L 36-48 % Mean Corpuscular Volume 86.0 79-99 fL Mean Corpuscular Hemoglobin 28.3 27.0-33.0 pg Mean Corpuscular Hemoglobin Concent 32.9 32.0-36.0 g/dL Red Cell Distribution Width 14.8 11.0-15.5 % Platelet Count 260 130-400 K/uL Mean Platelet Volume 8.0 7.5-10.5 fL Nucleated Red Blood Cells 0.0 0.0-0.19 % Sodium Level 135 L 136-145 mmol/L Potassium Level 3.3 L 3.5-5.1 mmol/L Chloride Level 104 101-111 mmol/L Carbon Dioxide Level 24 21-32 mmol/L Blood Urea Nitrogen 53 H 7-18 mg/dL Creatinine 0.9 0.5-1.0 mg/dL Glomerular Filtration Rate Calc 68 >90 mL/min Random Glucose 82 70-105 mg/dL Total Calcium 9.1 8.5-10.1 mg/dL Magnesium Level 1.90 1.80-2.40 mg/dL Total Bilirubin 0.3 0.2-1.0 mg/dL Aspartate Amino Transf (AST/SGOT) 15 10-37 U/L Alanine Aminotransferase (ALT/SGPT) 13 12-78 U/L Alkaline Phosphatase 88 50-136 U/L Total Protein 4.4 L 6.0-8.3 g/dL Albumin 1.5 L 3.5-5.0 g/dL Whole Blood Glucose 115 H 70-110 MG/DL Current Medications Medications (Trade) Dose Ordered Sig/Dionisio Route PRN Reason Start Time Stop Time Status Last Admin Dose Admin Docusate Sodium (COLace 100MG CAP) 100 mg DAILY PO 05/29/24 09:00 06/28/24 08:59 Famotidine (Pepcid 20mg Vial) 20 mg Q48H IV 05/23/24 21:00 05/23/24 19:37 DC Fat Emulsion Intravenous 250 ml @ 42 mls/hr MoWeFr@1000 IV 05/25/24 10:00 05/25/24 19:34 DC 05/25/24 09:14 42 MLS/HR Fentanyl (DURAgesic 75 MCG/HR PATCH) 75 mcg Q3D TD 05/27/24 16:30 06/01/24 16:29 Heparin Sodium (Porcine) (HEParin 5,000 UNIT VIAL) 5,000 unit Q12H SQ 05/23/24 21:00 06/22/24 20:59 05/28/24 19:35 5,000 UNIT Hydrocortisone Sodium Succinate (Solu-corTEF 100MG) 25 mg Q8H IV 05/28/24 00:00 05/28/24 17:13 DC 05/28/24 17:06 25 MG Hydrocortisone Sodium Succinate (Solu-corTEF 100MG) 50 mg Q6H IV 05/24/24 14:00 05/25/24 10:08 DC 05/25/24 09:13 50 MG Hydrocortisone Sodium Succinate (Solu-corTEF 100MG) 50 mg Q8H IV 05/25/24 16:00 05/27/24 16:14 DC 05/27/24 08:20 50 MG Hydromorphone HCl (DiLAUDid 0.5MG INJ) 0.2 mg Q4H PRN IVP SEVERE PAIN (7-10) 05/28/24 14:00 06/02/24 13:59 05/29/24 04:56 0.2 MG Hydromorphone HCl (DiLAUDid 0.5MG INJ) 0.2 mg Q6H PRN IVP SEVERE PAIN (7-10) 05/23/24 13:30 05/24/24 01:23 DC 05/24/24 00:08 0.2 MG Hydromorphone HCl (DiLAUDid 0.5MG INJ) 0.3 mg Q4HPRN PRN IVP SEVERE PAIN (7-10) 05/24/24 01:30 05/28/24 13:29 DC 05/28/24 12:37 0.3 MG Hydromorphone HCl (DiLAUDid 0.5MG INJ) 0.5 mg Q6H PRN IVP SEVERE PAIN (7-10) 05/23/24 13:30 05/23/24 13:18 DC Insulin Human Regular (humuLIN R 100 UNIT/ML 3ML) INSULIN SLIDING SCAL... ACHS SQ 05/26/24 16:30 06/25/24 16:29 Linezolid 300 ml @ 150 mls/hr Q12H IV 05/23/24 11:30 06/02/24 11:29 05/28/24 22:23 150 MLS/HR Magnesium Sulfate 50 ml @ 0 mls/hr PROTOCOL PRN IV ad 05/23/24 17:00 06/22/24 16:59 05/27/24 09:39 25 MLS/HR Meropenem (Merrem 1gm) 1 gm Q24H IVPB 05/23/24 14:00 06/02/24 13:59 05/28/24 17:06 1 GM Methylnaltrexone [place] (reLIStor) 12 mg DAILY SQ 05/25/24 09:00 06/24/24 08:59 05/27/24 10:00 12 MG Norepinephrine 250 ml @ 0 mls/hr PROTOCOL IV 05/23/24 16:00 05/24/24 07:36 DC 05/24/24 01:40 51 MLS/HR Norepinephrine Bitartrate 250 ml @ 0 mls/hr PROTOCOL IV 05/24/24 08:00 06/23/24 07:59 Norepinephrine Bitartrate (Norepineph 16 Mg/250ml NS Premix) Protocol PROTOCOL IV 05/24/24 07:30 05/24/24 07:39 DC Pantoprazole Sodium (PROTonix 40MG INJ) 40 mg DAILY IVP 05/24/24 09:00 06/23/24 08:59 05/28/24 10:03 40 MG Pharmacy Profile Note (Lace Assessment) 1 each AD MISC 05/23/24 13:30 05/23/24 13:25 DC Polyethylene Glycol (MIRalax 3350 17 GM POWD.PACK) 17 gm DAILY PO 05/29/24 09:00 06/28/24 08:59 Potassium Chloride 100 ml @ 100 mls/hr AD PRN IV POTASSIUM PROTOCOL 05/25/24 19:30 06/24/24 19:29 Potassium Chloride (K-Dur/Klor-Con 20meq) 20 meq AD PRN PO POTASSIUM PROTOCOL 05/25/24 19:30 06/24/24 19:29 Potassium Chloride (KCl 10% Elixir 20meq/15ml) 20 meq AD PRN PO POTASSIUM PROTOCOL 05/25/24 19:30 06/24/24 19:29 05/26/24 05:37 20 MEQ Sodium Chloride 500 ml @ 0 mls/hr Q0M IV 05/24/24 10:00 06/23/24 09:59 05/24/24 09:54 1,200 MLS/HR Sodium Chloride 1,000 ml @ 75 mls/hr [id number] IV 05/28/24 17:30 06/27/24 17:29 05/29/24 06:18 75 MLS/HR Sodium Chloride 1,000 ml @ 125 mls/hr Q8H IV 05/23/24 13:30 06/22/24 13:29 05/28/24 17:05 125 MLS/HR Wound Care/ Dressing Products (Venelex Ointment Packet) 1 gm BID TP 05/24/24 21:00 05/25/24 07:07 DC 05/24/24 20:09 1 GM Wound Care/ Dressing Products (Venelex Ointment) 1 APPL BID TP 05/25/24 09:00 06/24/24 08:59 05/28/24 20:59 1 GM DIAGNOSTICS / RADIOLOGY: [ ] ASSESSMENT: Severe sepsis, resolved POA Hypotension resolved POA Small bowel obstruction, ruled out POA Opiate induced ileus Medical non-compliance UTI, ruled out POA Dehydration, resolved Acute kidney injury, improving POA Hyponatremia, improving Mild CK elevation Hyperchloremia History of chronic opioid use Frailty Debility History of chronic left hip dislocation POA PLAN: - patient remains admitted to the ICU -Start clear liquid diet -Continue methylnatrexone -Continue TPN -Continue broad spectrum antibiotics -ID consulted, appreciate recommendations -reference to acute kidney injury. Continue supportive care with IV fluids -Nephrology consultation requested, follow input recommendation -critical care input noted and appreciated -patient will be on Dilaudid for pain control -further orders per hospitalization course. Disposition: Pending improvement in clinical status Greater than 35 minutes ICU time spent in care of patient MARTIN GALINDO MD May 29, 2024 09:31
[2024-05-29] MEDS: doCUSate SODIUM 100 MG CAP PO SCH (09:55)
[2024-05-29] MEDS: polyETHYLene GLYCol 3350 17 GM POWD.PACK PO SCH (09:55)
[2024-05-29] MEDS: PoTASSium chloRIDE 20MEQ ER 20 MEQ ERTAB PO ONE (09:55)
--- NOTE | 2024-05-29 11:01 | PN ---
[facility] PROGRESS NOTE Date Patient Seen: May 29, 2024 Time of Visit: 11:01 Supervising Physician: [ ] Primary Care Physician: Chapincito Guardado MD Outpatient Specialists: Inpatient Consults: LEATHA Farrell (Critical care team) , Dr Augustus Ferguson, Dr Eduardo PROBLEM LIST: Acute hypoxic respiratory failure, POA resolved septic shock POA , requiring Levophed, resolved Multifocal Pneumonia, POA, treated Small bowel obstruction POA , r/o clinically Acute complicated cystitis, POA, negative urine culture Hematuria POA, resolved Severe Dehydration, improved Acute kidney injury POA resolved Electrolyte derangement POA ( Hyponatremia, Hyperchloremia) History of chronic opioid use Frailty Debility History of chronic left hip dislocation, Opiate induced Illeus, Hypothyroidism, multiple recent hospitalizations with long hospital stay, opiate overdose w/ morphine, and fibromyalgia, Osteoarthritis , spinal cord stimulation (SCS) INTERVAL HISTORY: Patient is awake alert and oriented x3. As per RN she just turned off Levophed drip. Blood pressure 144/93 with a heart rate in the 80s respiratory rate of 20 saturating 98% with 2 L via nasal cannula and afebrile. Patient had large bowel movement overnight. Per General surgery patient can start clear liquid diet no plans for OR at this time. She continues on TPN. If patient tolerates chloride liquid diet we can stop TPN and start p.o. feeding. Urine output 1.7 L in the last 24 hours with a balance of +1.9 L we will stop current IV fluids and give a one time dose of Lasix 20 mg IV push. On laboratory WBCs at 21.4 likely reactive from high-dose hydrocortisone that was started for refractory shock H&H was 8.1/25.8 seems to be slowly trending down, platelet count 321 K. On chemistries sodium 138 potassium 3.2 covered per protocol BUN 62 creatinine of 1.8 improved from yesterday which was 3.0 GFR of 29 and glucose of 212 mg/dL total calcium 8.1 BNP 569. No growth two blood cultures and no growth to urine culture. 05/26/2024: At the time of my evaluation, the patient was lying in bed. The staff nurse reports no overnight events. The patient is awake, alert and oriented x3. Currently, the patient is on room air and maintaining optimal oxygen saturation. On the monitor, she is hemodynamically stable. The patient is currently on a clear liquid diet and denies any nausea vomiting or diarrhea. Patient denies any abdominal pain and is so far tolerating her feedings. Last bowel movement was reported on 05/25/2024: No other complaint. 05/27/2024: At the time of my evaluation, the patient was lying in bed. Staff nurse present at the bedside. Family member was present. The patient was breathing on room air. A CT chest done on 05/26/2024, showed moderate bilateral pleural effusions bilateral basal atelectasis. There are scattered infiltrates on the right consistent with pneumonia. There was also suspicion for a spiculated nodule. She was hemodynamically stable on the monitor. No complaint shortness of breath or chest pain. The patient is tolerating clear liquid diet. She has not had a bowel movement despite the use Relistor. I's and O's showed a negative balance of 2200.0. On labs, the patient remained with elevated WBC count 15.6 today. Chemistry panel showed no major derangement. Renal parameters improving. The staff nurse reports no acute events overnight. No other complaint. 05/28 patient is evaluated at bedside. Her WBCs downtrending. She is weaned off supplemental oxygen, now on room air. Did have a bowel movement yesterday but has not had one today. She continues on clear liquid diet and tolerating. Continues on antibiotics for pneumonia. Did have a 15 mm nodule, patient was recommended to continue antibiotics for pneumonia and repeat CT imaging in 3-6 months for re-evaluation. Blood pressures are slightly elevated, we will stop hydrocortisone and continue fluids for pressure support. Patient continues on Relistor for constipation. Will optimize bowel regimen. Pending SNF per primary. REVIEW OF SYSTEMS: General:reports generalized body pain. Neurological: No fainting episodes or seizures. HEENT: No nasal congestion or nasal secretion. Respiratory: No cough, shortness of breath, or wheezing Cardiac: No chest pain or palpitations. Gastrointestinal:yes for nausea and much output to ng tube . Genitourinary: No dysuria hematuria. Skin: No rashes or lesions. Hematological: No bruises or bleeding. Musculoskeletal: reports chronic pain to hands and fingers, back and hip Psychiatric: No depression or panic attacks. PHYSICAL EXAM: GENERAL: Mental status improving weak, awake oriented x 3 GCS 15 HEENT: Sclera non icteric, moist mucosa NECK: Supple, no JVD, trachea midline LUNGS: Clear breath sounds bilaterally. No wheezes HEART: Regular rate and rhythm. Normal S1 and S2, without murmurs ABD: abdomen distended but soft non tender, Bowel sounds hypoactive EXT: No clubbing cyanosis or edema NEURO: AAOx3 no focal weakness Vital Signs (last 8hr) Date Time Temp Pulse Resp B/P (MAP) Pulse Ox O2 Delivery O2 Flow Rate FiO2 05/29/24 08:00 97.9 78 18 150/86 97 Room Air 05/29/24 04:00 98.1 72 20 143/82 98 Room Air LABS: Hematology Labs: Test 05/29/24 06:23 Range/Units White Blood Count 13.1 H 4.8-10.8 K/uL Red Blood Count 2.86 L 4.00-5.50 MIL/uL Hemoglobin 8.1 L 12.0-16.0 g/dL Hematocrit 24.6 L 36-48 % Mean Corpuscular Volume 86.0 79-99 fL Mean Corpuscular Hemoglobin 28.3 27.0-33.0 pg Mean Corpuscular Hemoglobin Concent 32.9 32.0-36.0 g/dL Red Cell Distribution Width 14.8 11.0-15.5 % Platelet Count 260 130-400 K/uL Mean Platelet Volume 8.0 7.5-10.5 fL Nucleated Red Blood Cells 0.0 0.0-0.19 % Chemistry Labs: Test 05/29/24 06:23 05/27/24 20:18 Range/Units Sodium Level 135 L 136-145 mmol/L Potassium Level 3.3 L 3.5-5.1 mmol/L Chloride Level 104 101-111 mmol/L Carbon Dioxide Level 24 21-32 mmol/L Blood Urea Nitrogen 53 H 7-18 mg/dL Creatinine 0.9 0.5-1.0 mg/dL Glomerular Filtration Rate Calc 68 >90 mL/min Random Glucose 82 70-105 mg/dL Total Calcium 9.1 8.5-10.1 mg/dL Magnesium Level 1.90 1.80-2.40 mg/dL Total Bilirubin 0.3 0.2-1.0 mg/dL Aspartate Amino Transf (AST/SGOT) 15 10-37 U/L Alanine Aminotransferase (ALT/SGPT) 13 12-78 U/L Alkaline Phosphatase 88 50-136 U/L Total Protein 4.4 L 6.0-8.3 g/dL Albumin 1.5 L 3.5-5.0 g/dL Whole Blood Glucose 115 H 70-110 MG/DL DIAGNOSTICS / RADIOLOGY RESULTS: [ ] PLAN 05/28/2024: For now, going to continue current management for the patient. She will continue room air and we will continue to monitor oxygenation needs. I am going to stop the hydrocortisone. The patient continues antibiotic therapy with IV Merrem and linezolid per ID. We will also continue to monitor the vital signs. The patient continues feeding on clear liquid diet and we will monitor bowel activity. She will remain on Relistor. Optimize bowel regimen with miralax and docusate. We will also monitor her I's and O's. From our standpoint, the patient can be transferred discharged to continue abx per ID. Case management is working on assisted facility placement. We will continue to monitor the patient's progress response to management. Further orders per attending and hospital course. NEURO: Minimize central acting medications as possible. Maintain fall precautions, adequate lighting during the day PULMONARY: Supplemental 02 as needed. Maintain aspiration precautions at all times CARDIOVASCULAR: Follow hemodynamics. Vital signs per facility protocol GI & NUTRITION: Continue with nutritional support. Continue stool softeners and laxatives as needed. KIDNEYS & ELECTROLYTES: Strict monitoring of intake, output and overall fluid balance. Avoid nephrotoxic medications to the extent possible. Medications to be dosed according to renal function. Monitor electrolytes and replace as needed ENDOCRINE: Maintain blood glucose between 100-180 at all times. Hypoglycemia protocol in place INFECTIOUS DISEASE: Trend temperature, WBC and procalcitonin level Follow cultures, deescalate antibiotics as soon as possible. Panculture if new onset fever ONCOLOGY/HEMATOLOGY/COAGULATION: Monitor for s/s of bleeding Monitor hemoglobin, coagulation studies as needed SKIN: Pressure ulcer prevention per facility protocol Specialty mattress ORTHO/REHAB: Continue PT/OT Prophylaxis: Continue GI and DVT prophylaxis Code Status: Full Resuscitation Disposition: TBD Other: Patient was seen, case was discussed with supervising MD and agreed upon. RODRIGUEZ HAINES May 29, 2024 11:01
[2024-05-29 11:55] VITALS: BP 165/79; PULSE 72; RESP 18; TEMP 98.2
--- NOTE | 2024-05-29 12:18 | DS ---
Discharge Summary Hospital Course Summary: This 73-year-old female with past medical history of hypertension hypothyroidism, diabetes mellitus type, history of chronic left hip pain with hip dislocation, anemia presented to the hospital secondary to abdominal pain, nausea, vomiting. Patient was recently admitted to [facility] for over a month. She was discharged on May 18, 2024. During last admission patient was found bowel obstruction and had NG tube placed. Patient was noted to be on chronic pain medications including fentanyl. Surgery was consulted during hospitalization. Patient was in the hospital for more than a month. Her symptoms improved and then she was discharged to halfway facility. Patient stated for the past 2-3 days she has noted increasing abdominal distention with associated nausea and vomiting. She also complained of abdominal pain. She has not been eating very well and stated she has been mostly sitting in a chair. She has noted decreased urination and decreased appetite. Labs were notable for white count of 38.1, hemoglobin was 11.5, platelet count is 447 K, sodium is 128, potassium was 4.6, chloride is 86, creatinine is 4.7, BUN is 67, CK is 574, calcium is 10.5, glucose is 130, lactic acid is two point, troponin is negative x1. Patient underwent CT abdomen pelvis which showed small bowel obstruction. Concern for possible bilateral basal pneumonia. Patient is Hearn catheter was noted to be cloudy. Patient admitted to the intensive care unit and placed on Levophed, broad- spectrum antibiotics started, critical Care and Infectious Disease consultation requested. Patient eventually weaned off pressors, downgraded to the PCU, eventually to the medical floor. Results of septic workup has remained negative. Leukocytosis resolved. Patient tolerating diet, passing gas, moving bowels. Patient evaluated by General surgery as well, no plan for surgical intervention, medical management was recommended Today patient is alert oriented x3, hemodynamically stable, case discussed with case management, patient accepted at [facility] for continuation of medical care. Design Teacher(s): Critical Care, Infectious Disease and General surgery Assessment/Plan: FINAL DIAGNOSIS Severe sepsis, resolved POA Hypotension resolved POA Small bowel obstruction, ruled out POA Opiate induced ileus Medical non-compliance UTI, ruled out POA Dehydration, resolved Acute kidney injury, improving POA Hyponatremia, improving Mild CK elevation Hyperchloremia History of chronic opioid use Frailty Debility History of chronic left hip dislocation POA Discharge Instructions: Patient to be discharged [facility] nursing [facility] for continuation of medical care, patient to return to the hospital if condition changes. Patient agreed with plan and understood the information provided. Home Medications: Active Scripts Fentanyl (Fentanyl) 75 Mcg/Hour Patch.td72, 1 PATCH TP Q3D for 3 Days, #3 PATCH 0 Refills Prov:MARTIN GALINDO MD 05/07/24 Lorazepam (Ativan) 2 Mg Tablet, 1 TAB PO HSPRN PRN for sleep for 30 Days, #30 TAB 0 Refills Prov:MARTIN GALINDO MD 05/07/24 Hydromorphone HCl (Hydromorphone HCl) 2 Mg Tablet, 1 TAB PO TID for pain for 30 Days, #90 TAB 0 Refills Prov:MARTIN GALINDO MD 05/07/24 Diphenoxylate HCl/Atropine (Lomotil Tablet) 2.5 Mg-0.025 Mg Tablet, 1 TAB PO QID for 30 Days, #30 TAB 2 Refills Prov:MARTIN GALINDO MD 05/07/24 Reported Medications Amlodipine Besylate (Amlodipine Besylate) 5 Mg Tablet, 1 TAB PO DAILY for 30 Days, #30 TAB 0 Refills 05/07/24 Nitroglycerin (Nitroglycerin) 0.4 Mg Tab.subl, 1 TAB SL AD for chest pain, #25 TAB 0 Refills 1st sign of attack; may repeat every 5 mins; if pain persists after 3 in 15 min, medical attention is recommended 04/06/24 Tizanidine HCl (Tizanidine HCl) 2 Mg Capsule, 3 CAP PO BID for 30 Days, #60 CAP 0 Refills 04/06/24 Simethicone (Simethicone) 80 Mg Tab.chew, 1 TAB PO TID for gas for 6 Days, #20 TAB 0 Refills 04/06/24 Ondansetron HCl (Ondansetron HCl) 4 Mg Tablet, 1 TAB PO Q6HPRN PRN for nausea/vomiting, #10 TAB 0 Refills 04/06/24 Loperamide HCl (Loperamide) 2 Mg Tablet, 1 TAB PO DAILY for loose stool for 30 Days, #180 TAB 0 Refills 04/06/24 Lactulose (Lactulose) 20 Gram/30 Ml Solution, 30 ML PO Q6HPRN PRN for CONSTIPATION for 30 Days, #900 ML 0 Refills 04/06/24 Hydroxyzine HCl (Hydroxyzine HCl) 25 Mg Tablet, 1 TAB PO TID for anxiety for 30 Days, #90 TAB 0 Refills 04/06/24 Hydromorphone HCl (Hydromorphone HCl) 8 Mg Tablet, 1 TAB PO Q6HPRN PRN for pain for 30 Days, #120 TAB 0 Refills 04/06/24 Docusate Sodium (Docusate Sodium) 100 Mg Capsule, 1 CAP PO DAILY for constipation for 30 Days, #30 CAP 0 Refills 04/06/24 Clonidine HCl (Clonidine HCl) 0.1 Mg Tablet, 1 TAB PO TIDP PRN for IF SBP GREA TER THAN 160 for 30 Days, #30 TAB 0 Refills 04/06/24 Loperamide HCl (Loperamide) 2 Mg Tablet, 1 TAB PO DAILY for loose stool for 30 Days, #180 TAB 0 Refills 04/06/24 Albuterol Sulfate (Albuterol Sulfate) 2.5 Mg/0.5 Ml Vial.neb, 1 VIAL NEB Q4H for shortness of breath for 10 Days, #30 ML 0 Refills 04/06/24 Acetaminophen (Acetaminophen) 325 Mg Tablet, 2 TAB PO Q4HPRN PRN for pain or fever for 30 Days, #30 TAB 0 Refills 04/06/24 Melatonin (Melatonin) 3 Mg Tablet, 2 TAB PO HS for sleep for 30 Days, #30 TAB 0 Refills 04/06/24 Trazodone HCl (Trazodone HCl) 150 Mg Tablet, 1 TAB PO HS for 30 Days, #30 TAB 0 Refills 04/06/24 Ascorbic Acid (Vitamin C) 500 Mg Tablet, 1 TAB PO DAILY for 30 Days, #30 TAB 0 Refills 04/06/24 Pantoprazole Sodium (Pantoprazole Sodium) 40 Mg Tablet.dr, 1 TAB PO BID for 30 Days, #30 TAB 0 Refills 04/06/24 Multivitamin W/Iron, Minerals (Multivitamins with Iron) 1 Each Tab.chew, 1 TAB PO DAILY for 30 Days, #30 TAB 0 Refills 04/06/24 Cefpodoxime Proxetil (Cefpodoxime Proxetil) 200 Mg Tablet, 1 TAB PO BID for 10 Days, #20 TAB 0 Refills 04/06/24 Buspirone HCl (Buspirone HCl) 7.5 Mg Tablet, 1 TAB PO BID for 30 Days, #60 TAB 0 Refills 04/06/24 Sucralfate (Sucralfate) 1 Gram/10 Ml Oral.susp, 10 ML PO BID for 30 Days, #600 ML 0 Refills 04/06/24 Thyroid,Pork ([place] Thyroid) 180 Mg Tablet, 1 TAB PO DAILY for 30 Days, #30 TAB 0 Refills 04/06/24 Tizanidine HCl (Tizanidine HCl) 2 Mg Tablet, 6 MG PO BID, TAB 07/11/23 Hydromorphone HCl (Dilaudid) 4 Mg Tab, 4 MG PO Q6HPRN PRN for PAIN LEVEL 6 TO 10, TAB 07/11/23 Gabapentin (Gabapentin) 600 Mg Tablet, 600 MG PO TID, TAB 07/11/23 Metoprolol Tartrate (Metoprolol Tartrate) 100 Mg Tablet, 100 MG PO BID, TAB 07/11/23 [Thyroid] No Conflict Check, 3 GR PO ACBKFST 07/11/23 Valsartan/Hydrochlorothiazide (Valsartan-Hctz 320-25 mg Tab) 320 Mg-25 Mg Tablet, 1 TAB PO DAILY, TAB 07/11/23 Fentanyl (Fentanyl) 100 Mcg/Hour Patch.td72, 1 EACH TD Q72 HRS 07/11/23 Time spent arranging discharge: 31-60 minutes MARTIN GALINDO MD May 29, 2024 12:18
--- NOTE | 2024-05-29 15:17 | PN ---
NEPHROLOGY PROGRESS NOTE Date/Time Patient Seen: May 29, 2024 Reason for Consultation: 15:17 SUBJECTIVE: This is a 73-year-old female with past medical history of cervical cancer with hysterectomy, obesity, hypertension, hypothyroidism, fibromyalgia, chronic left hip with multiple surgeries, anemia She presented to the hospital secondary to abdominal pain, nausea, vomiting. The patient has small-bowel obstruction and pneumonia detected by CT scan. The patient is in ICU, critically ill, has been on pressors off and on with other comorbidities. She continues to be followed by General surgery for small-bowel obstruction, no surgical intervention planned Continued antibiotics for UTI. The patient has acute kidney injury. We has been consulted for renal failure. Renal function is improving Electrolytes are stable Hearn catheter is in place. Case management coordinating SNF placement She was seen in the medical floor, in no acute distress No family at the bedside REVIEW OF SYSTEMS: GENERAL: Negative for any nausea, vomiting, fevers, chills, or weight loss. NEUROLOGIC: Negative for any blurry vision, blind spots, double vision, facial asymmetry, dysphagia, dysarthria, hemiparesis, hemisensory deficits, vertigo, ataxia. HEENT: Negative for any head trauma, neck trauma, neck stiffness, photophobia, phonophobia, sinusitis, rhinitis. CARDIAC: Negative for any chest pain, dyspnea on exertion, paroxysmal nocturnal dyspnea, peripheral edema. PULMONARY: Negative for any shortness of breath, wheezing, COPD, or TB exposure. GASTROINTESTINAL: Negative for any abdominal pain, nausea, vomiting, bright red blood per rectum, melena. GENITOURINARY: Negative for any dysuria, hematuria, incontinence. INTEGUMENTARY: Negative for any rashes, cuts, insect bites. RHEUMATOLOGIC: Negative for any joint pains, photosensitive rashes, history of vasculitis or kidney problems. HEMATOLOGIC: Negative for any abnormal bruising, frequent infections or bleeding. Vital Signs (last 8hr) Date Time Temp Pulse Resp B/P (MAP) Pulse Ox O2 Delivery O2 Flow Rate FiO2 05/26/24 13:00 90 18 142/86 97 Room Air 05/26/24 12:00 96 Room Air* 0 21 05/26/24 12:00 98.4 88 22 143/61 96 Room Air 21 05/26/24 11:00 92 94 126/80 96 Room Air 05/26/24 10:00 82 14 131/75 95 Room Air 05/26/24 09:00 108 16 149/87 95 Room Air 05/26/24 08:00 98 Nasal Cannula* 2 28 05/26/24 08:00 99.0 72 10 138/78 97 Room Air 05/26/24 07:00 82 15 144/85 100 Nasal Cannula 2.0 05/26/24 06:46 74 14 130/77 100 Nasal Cannula 2.0 PHYSICAL EXAM: GENERAL: Alert and oriented x 3. No acute distress. Well-nourished. EYES: EOMI. Anicteric. HENT: Moist mucous membranes. No scleral icterus. No cervical lymphadenopathy. LUNGS: Clear to auscultation bilaterally. No accessory muscle use. CARDIOVASCULAR: Regular rate and rhythm. No murmur. No JVD. ABDOMEN: Soft, non-tender and non-distended. No palpable masses. EXTREMITIES: No edema. Non-tender. SKIN: No rashes or lesions. Warm. NEUROLOGIC: No focal neurological deficits. CN II-XII grossly intact, but not individually tested. PSYCHIATRIC: Cooperative. Appropriate mood and affect. Current Medications Medications (Trade) Dose Ordered Sig/Dionisio Route PRN Reason Start Time Stop Time Status Last Admin Dose Admin Famotidine (Pepcid 20mg Vial) 20 mg Q48H IV 05/23/24 21:00 05/23/24 19:37 DC Fat Emulsion Intravenous 250 ml @ 42 mls/hr MoWeFr@1000 IV 05/25/24 10:00 05/25/24 19:34 DC 05/25/24 09:14 42 MLS/HR Heparin Sodium (Porcine) (HEParin 5,000 UNIT VIAL) 5,000 unit Q12H SQ 05/23/24 21:00 06/22/24 20:59 05/26/24 08:33 5,000 UNIT Hydrocortisone Sodium Succinate (Solu-corTEF 100MG) 50 mg Q6H IV 05/24/24 14:00 05/25/24 10:08 DC 05/25/24 09:13 50 MG Hydrocortisone Sodium Succinate (Solu-corTEF 100MG) 50 mg Q8H IV 05/25/24 16:00 06/23/24 13:59 05/26/24 08:31 50 MG Hydromorphone HCl (DiLAUDid 0.5MG INJ) 0.2 mg Q6H PRN IVP SEVERE PAIN (7-10) 05/23/24 13:30 05/24/24 01:23 DC 05/24/24 00:08 0.2 MG Hydromorphone HCl (DiLAUDid 0.5MG INJ) 0.3 mg Q4HPRN PRN IVP SEVERE PAIN (7-10) 05/24/24 01:30 05/28/24 13:29 05/26/24 13:43 0.3 MG Hydromorphone HCl (DiLAUDid 0.5MG INJ) 0.5 mg Q6H PRN IVP SEVERE PAIN (7-10) 05/23/24 13:30 05/23/24 13:18 DC Insulin Human Regular (humuLIN R 100 UNIT/ML 3ML) INSULIN SLIDING SCAL... ACHS SQ 05/26/24 16:30 06/25/24 16:29 Linezolid 300 ml @ 150 mls/hr Q12H IV 05/23/24 11:30 06/02/24 11:29 05/26/24 11:32 150 MLS/HR Magnesium Sulfate 50 ml @ 0 mls/hr PROTOCOL PRN IV ad 05/23/24 17:00 06/22/24 16:59 05/24/24 08:58 25 MLS/HR Meropenem (Merrem) 1 gm Q24H IVPB 05/23/24 14:00 06/02/24 13:59 05/25/24 14:50 1 GM Methylnaltrexone Rainbow (reLIStor) 12 mg DAILY SQ 05/25/24 09:00 06/24/24 08:59 05/26/24 10:38 12 MG Norepinephrine 250 ml @ 0 mls/hr PROTOCOL IV 05/23/24 16:00 05/24/24 07:36 DC 05/24/24 01:40 51 MLS/HR Norepinephrine Bitartrate 250 ml @ 0 mls/hr PROTOCOL IV 05/24/24 08:00 06/23/24 07:59 Norepinephrine Bitartrate (Norepineph 16 Mg/250ml NS Premix) Protocol PROTOCOL IV 05/24/24 07:30 05/24/24 07:39 DC Pantoprazole Sodium (PROTonix 40MG INJ) 40 mg DAILY IVP 05/24/24 09:00 06/23/24 08:59 05/26/24 08:31 40 MG Pharmacy Profile Note (Lace Assessment) 1 each AD MISC 05/23/24 13:30 05/23/24 13:25 DC Potassium Chloride 100 ml @ 100 mls/hr AD PRN IV POTASSIUM PROTOCOL 05/25/24 19:30 06/24/24 19:29 Potassium Chloride (K-Dur/Klor-Con 20meq) 20 meq AD PRN PO POTASSIUM PROTOCOL 05/25/24 19:30 06/24/24 19:29 Potassium Chloride (KCl 10% Elixir 20meq/15ml) 20 meq AD PRN PO POTASSIUM PROTOCOL 05/25/24 19:30 06/24/24 19:29 05/26/24 05:37 20 MEQ Sodium Chloride 500 ml @ 0 mls/hr Q0M IV 05/24/24 10:00 06/23/24 09:59 05/24/24 09:54 1,200 MLS/HR Sodium Chloride 1,000 ml @ 125 mls/hr Q8H IV 05/23/24 13:30 06/22/24 13:29 05/26/24 12:26 125 MLS/HR Wound Care/ Dressing Products (Venelex Ointment Packet) 1 gm BID TP 05/24/24 21:00 05/25/24 07:07 DC 05/24/24 20:09 1 GM Wound Care/ Dressing Products (Venelex Ointment) 1 APPL BID TP 05/25/24 09:00 06/24/24 08:59 05/26/24 08:31 1 GM LABORATORY: [ ] Hematology Labs: Test 05/29/24 06:23 Range/Units White Blood Count 13.1 H 4.8-10.8 K/uL Red Blood Count 2.86 L 4.00-5.50 MIL/uL Hemoglobin 8.1 L 12.0-16.0 g/dL Hematocrit 24.6 L 36-48 % Mean Corpuscular Volume 86.0 79-99 fL Mean Corpuscular Hemoglobin 28.3 27.0-33.0 pg Mean Corpuscular Hemoglobin Concent 32.9 32.0-36.0 g/dL Red Cell Distribution Width 14.8 11.0-15.5 % Platelet Count 260 130-400 K/uL Mean Platelet Volume 8.0 7.5-10.5 fL Nucleated Red Blood Cells 0.0 0.0-0.19 % Chemistry Labs: Test 05/29/24 06:23 05/27/24 20:18 Range/Units Sodium Level 135 L 136-145 mmol/L Potassium Level 3.3 L 3.5-5.1 mmol/L Chloride Level 104 101-111 mmol/L Carbon Dioxide Level 24 21-32 mmol/L Blood Urea Nitrogen 53 H 7-18 mg/dL Creatinine 0.9 0.5-1.0 mg/dL Glomerular Filtration Rate Calc 68 >90 mL/min Random Glucose 82 70-105 mg/dL Total Calcium 9.1 8.5-10.1 mg/dL Magnesium Level 1.90 1.80-2.40 mg/dL Total Bilirubin 0.3 0.2-1.0 mg/dL Aspartate Amino Transf (AST/SGOT) 15 10-37 U/L Alanine Aminotransferase (ALT/SGPT) 13 12-78 U/L Alkaline Phosphatase 88 50-136 U/L Total Protein 4.4 L 6.0-8.3 g/dL Albumin 1.5 L 3.5-5.0 g/dL Whole Blood Glucose 115 H 70-110 MG/DL DIAGNOSTICS / RADIOLOGY: REASON: picc line placement ORDERING PHYSICIAN: MARCO JOLLY MD PROCEDURE: CXR1VW - CHEST 1VW Exam Type: CHEST 1VW Clinical Information: picc line placement Comparison: May 26, 2024 Findings: Right PICC line is noted with tip within the cavoatrial junction and there are no other interval changes. IMPRESSION: Right PICC line as noted. DICTATED BY: NGOC ELIZABETH MD DATE: 05/27/24 1049 REASON: Right pulmonary nodule ORDERING PHYSICIAN: JOSE SPENCER NP PROCEDURE: CHEST WO - CT CHEST W/O CONTRAST CT NONCONTRAST CHEST Comparison Study: none History: Right pulmonary nodule Technique: Helical CT of the chest without IV contrast at 5 mm collimation. Coronal and sagittal reformations also done. CT Dose Index (CTDI): 2.38 mGy Dose Length Product (DLP): 94.8 total mGy-cm Findings: The airway is intact. The trachea and major bronchi are unremarkable. The chest exam shows no pulmonary nodules or masses. There are bilateral moderate pleural effusions. Bilateral basal atelectasis is seen and there are scattered infiltrates of the right lung consistent with pneumonia. Infiltrates surround a stellate-looking area of the right upper lobe measuring 15 mm. These could represent a spiculated nodule. Follow-up to complete radiographic resolution of pneumonia is recommended and if the nodule persists, biopsy may be necessary. There is no pneumothorax. There is no evidence of pneumomediastinum. The nonenhanced exam of the jyothi and mediastinum is unremarkable. No evidence of hilar enlargement is seen. The aorta shows no aneurysmal dilatation or significant atheromatous calcification. No significant brachiocephalic vascular abnormalities are seen. The heart is unremarkable. It is not enlarged. No significant coronary arterial calcifications are seen. There is no pericardial effusion. The rib cage appears unremarkable. The soft tissues of the chest wall are unremarkable. The dorsal spine shows no significant abnormalities. IMPRESSION: There are bilateral moderate pleural effusions. Bilateral basal atelectasis is seen and there are scattered infiltrates of the right lung consistent with pneumonia. Infiltrates surround a stellate-looking area of the right upper lobe measuring 15 mm. These could represent a spiculated nodule. Follow-up to complete radiographic resolution of pneumonia is recommended and if the nodule persists, biopsy may be necessary. This study was performed using dose reduction techniques to include automated exposure control and/or adjustment of the mA and/or kV according to patient size. DICTATED BY: NGOC ELIZABETH MD DATE: 05/27/24 0819 REASON: duspected pneumonia ORDERING PHYSICIAN: DEJAN STOREY PROCEDURE: CXR1VW - CHEST 1VW Exam Type: CHEST 1VW Clinical Information: duspected pneumonia Comparison: None Findings: Pulmonary pattern is as before. No worrisome interval changes have taken place. Impression: Stable exam. DICTATED BY: NGOC ELIZABETH MD DATE: 05/25/24 1549 REASON: CENTRAL LINE PLACEMENT ORDERING PHYSICIAN: SAVANNA GRAF MD PROCEDURE: CXR1VW - CHEST 1VW CHEST 1VW HISTORY: Right IJ line placement COMPARISON: 05/23/2024 FINDINGS: A frontal projection of the chest was obtained. No acute pulmonary infiltrates is seen. Prominent interstitial markings are seen. There may be a hiatal hernia. The heart is borderline enlarged. All the lines and tubes are again seen in place. No evidence of aortic calcification is seen. IMPRESSION: 1. No acute pulmonary infiltrate is seen. DICTATED BY: YOVANNY BUTTERFIELD MD DATE: 05/23/24 1609 REASON: NG tube insertion, Please verify placement ORDERING PHYSICIAN: LINDSEY FRAIRE MD PROCEDURE: ABD 1VW - ABD 1VW Exam Type: ABD 1VW Clinical Information: NG tube insertion, Please verify placement Comparison: None Findings and impression: Nasogastric tube tip in the distal esophagus. Consider advancing. DICTATED BY: NGOC ELIZABETH MD DATE: 05/23/24 1426 REASON: abd distension , sepsis ORDERING PHYSICIAN: SAVANNA GRAF MD PROCEDURE: ABD PEL WO - CT ABDOMEN/PELVIS W/O CONTRAST Exam Type: CT ABDOMEN/PELVIS W/O CONTRAST Clinical Information: abd distension , sepsis Comparison: None CT Dose Index (CTDI): 10.20 mGy Dose Length Product (DLP): 530.00 total mGy-cm PROTOCOL: Routine noncontrast helical scanning of the abdomen and pelvis was performed at 5mm collimation. Findings: No evidence of nephro or ureterolithiasis is found. No hydronephrosis or ureteral dilatation is seen. Bilateral basal pneumonic infiltrates. Follow-up is advised. The stomach is distended. The spleen is unremarkable. It is not enlarged. The pancreas shows normal anatomy. It is not fatty replaced. It shows no lesions. The pancreatic duct is not dilated. The gallbladder is unremarkable. It shows no cholelithiasis. The gallbladder wall is normal in thickness. There is no pericholecystic fluid. The is no acute or chronic inflammation noted. The adrenal glands are unremarkable. There is no enlargement. No lesions are noted. The liver is unremarkable. It shows no focal masses. The appendix is unremarkable. It shows no evidence of inflammation. No appendicolith is seen. Dilatation of multiple small bowel loops is seen with distal transition point consistent with distal small bowel obstruction. The colon is unremarkable. The urinary bladder is unremarkable. There is no wall thickening to suggest tumor or inflammation. There are no intraluminal calculi. There are no diverticula. There is no evidence of chronic bladder outlet obstruction. There is no evidence of urinary bladder distention to suggest urinary retention. The other pelvic structures are unremarkable. Status post bilateral hip replacement with cephalad dislocation of the left femoral component. IMPRESSION: Small bowel obstruction. Bilateral basal pneumonia. This study was performed using dose reduction techniques to include automated exposure control and/or adjustment of the mA and/or kV according to patient size. DICTATED BY: NGOC ELIZABETH MD DATE: 05/23/24 1156 REASON: DISTENDED ABD ORDERING PHYSICIAN: SAVANNA GRAF MD PROCEDURE: CXR1VW - CHEST 1VW Exam Type: CHEST 1VW Clinical Information: DISTENDED ABD Comparison: None Findings: The lungs are clear of infiltrates. The heart is normal in size. The bony and soft tissue structures of the chest are unremarkable. Impression: Clear lungs. DICTATED BY: NGOC ELIZABETH MD DATE: 05/23/24 0949 REASON: DISTENDED ABD ORDERING PHYSICIAN: SAVANNA GRAF MD PROCEDURE: ABD 1VW - ABD 1VW Exam Type: ABD 1VW Clinical Information: DISTENDED ABD Comparison: None Findings: Abdomen demonstrates no evidence of pathologic calcification or soft tissue mass. There are no radiopacities to suggest calculous disease. The intestinal gas pattern is within normal limits without evidence of dilatation to suggest obstruction or adynamic ileus. Status post bilateral hip replacement with superior displacement of the femoral from the acetabular component on the left side. Postoperative changes lumbar spine. IMPRESSION: Normal abdomen. DICTATED BY: NGOC ELIZABETH MD DATE: 05/23/2448 ASSESSMENT: Anemia Acute on chronic renal failure Hypotension Small-bowel obstruction Opiate induced ileus Medical noncompliance UTI Dehydration Hyponatremia Hypothyroidism Fibromyalgia Depression PLAN: Labs, diagnostic, radiologic exams reviewed and interpreted by myself and s upervising physician. We have reviewed external records in detail Case management coordinating SNF placement Require close monitoring of renal function and electrolytes Order CBC, CMP, and electrolytes in am Continue with antibiotics Renal diabetic diet BiPAP as necessary, for respiratory distress IV pressors as needed Monitor blood pressure adjust medication doses as needed Avoid hypotensive episodes May use Dilaudid 0.5 mg IV every 6 hours as needed for severe pain Monitor blood sugars Strict intake, output, and daily weight should be monitored Please renally adjust medications Avoid nephrotoxic and nonsteroidal drugs Avoid contrast if possible Will continue to monitor renal function, anemia, electrolytes Treatment plan discussed with patient Questions were answered We have discussed with the other team physicians in detail about the care plan We will continue to monitor the patient closely ATTESTATION BY PHYSICIAN I have seen and examined the patient. I reviewed the documentation, medical decision making, and treatment plan as noted by the mid-level provider above. I agree with the findings and plan of care. GERI LANDRUM MD, ELIZABETH FNP May 29, 2024 15:17
[2024-05-29 16:00] VITALS: BP 165/99; PULSE 74; RESP 18; TEMP 97.9
--- NOTE | 2024-05-29 16:55 | NUR ---
Patient Refused PT today Patient reports she will be D/C to [facility] today, TRUDI Camacho confirmed; would like to rest and talk with her at this time
--- NOTE | 2024-05-29 19:07 | NUR ---
DISCHARGE TO [facility] PICC LINE FLUSHED, DISCHARGE INSTRUCTIONS GIVEN AND EXPLAINED TO PATIENT, TRANSFERRED VIA EMS. REPORT GIVEN TO [facility].
--- NOTE | 2024-05-29 20:36 | PN ---
INFECTIOUS DISEASE PROGRESS NOTE Date of Service: May 29, 2024 SUBJECTIVE: This is a 73-year-old female patient who was admitted to the hospital with chief complaint of abdominal pain, nausea or vomiting. A CT of the abdomen/pelvis done on admission showed small bowel obstruction and bilateral pneumonia. Patient's urinalysis was positive and the WBC was 38.1. Patient was on acute renal failure with BUN of 67 and creatinine of 4.3. General surgery was consulted and following. Patient however wants to wait on any surgical intervention. Patient was seen and examined at bedside in room 216. Patient is awake, alert and oriented x 3. Patient is afebrile, temperature is 98.2 and the WBC continues trending down and is 13.1 today. Will continue on Meropenem and linezolid. Patient has been approved to [facility] and discharging today. Patient will need 7 more days of IV antibiotics at [facility]. PHYSICAL EXAM EYES: Anicteric. Pupils equal and reactive. HENT: No oral thrush seen, moist Oral mucosa NECK: Supple, no JVD or thyromegaly. LUNGS: Good air entry. No rales, no rhonchi. Oxygen via nasal cannula. CARDIOVASCULAR: S1, S2 regular. No murmur heard. ABDOMEN: Soft, non tender, bowel sounds present, no organomegaly CENTRAL NERVOUS SYSTEM: Awake, alert, oriented x 3. No focal deficits. SKIN: No rashes, no swelling. LYMPHATICS: No peripheral lymphadenopathy MUSCULOSKELETAL: No joint swelling, erythema or tenderness. EXTREMITIES: No cyanosis or clubbing BACK: No deformity, no pressure ulcer. GENITOURINARY: No dysuria or hematuria Vital Sign (Last 12 Hours) 05/29/24 05/29/24 11:55 16:00 Temp 98.2 97.9 Pulse 72 74 Resp 18 18 B/P (MAP) 165/79 165/99 Pulse Ox 99 99 O2 Delivery Room Air Room Air Intake & Output (last 24hrs) 05/28/24 05/28/24 05/29/24 15:00 23:00 07:00 Intake Total 950.0 ml Output Total 500 ml Balance 450.0 ml LABS: Laboratory: Test 05/29/24 06:23 Range/Units White Blood Count 13.1 H 4.8-10.8 K/uL Red Blood Count 2.86 L 4.00-5.50 MIL/uL Hemoglobin 8.1 L 12.0-16.0 g/dL Hematocrit 24.6 L 36-48 % Mean Corpuscular Volume 86.0 79-99 fL Mean Corpuscular Hemoglobin 28.3 27.0-33.0 pg Mean Corpuscular Hemoglobin Concent 32.9 32.0-36.0 g/dL Red Cell Distribution Width 14.8 11.0-15.5 % Platelet Count 260 130-400 K/uL Mean Platelet Volume 8.0 7.5-10.5 fL Nucleated Red Blood Cells 0.0 0.0-0.19 % Sodium Level 135 L 136-145 mmol/L Potassium Level 3.3 L 3.5-5.1 mmol/L Chloride Level 104 101-111 mmol/L Carbon Dioxide Level 24 21-32 mmol/L Blood Urea Nitrogen 53 H 7-18 mg/dL Creatinine 0.9 0.5-1.0 mg/dL Glomerular Filtration Rate Calc 68 >90 mL/min Random Glucose 82 70-105 mg/dL Total Calcium 9.1 8.5-10.1 mg/dL Magnesium Level 1.90 1.80-2.40 mg/dL Total Bilirubin 0.3 0.2-1.0 mg/dL Aspartate Amino Transf (AST/SGOT) 15 10-37 U/L Alanine Aminotransferase (ALT/SGPT) 13 12-78 U/L Alkaline Phosphatase 88 50-136 U/L Total Protein 4.4 L 6.0-8.3 g/dL Albumin 1.5 L 3.5-5.0 g/dL ASSESSMENT: Multifocal pneumonia. Urinary tract infection. Abdominal pain. Small-bowel obstruction, resolved. Leukocytosis, resolving. Acute on chronic renal failure, improving. Dehydration. PLAN: Continue Meropenem IV. Continue linezolid IV. Patient has been approved to [facility] and being discharged today. Patient can continue IV antibiotics for 7 more days SNF.. This case was reviewed and discussed with my supervising physician and the above assessment and plan was formulated and agreed upon. ATTESTATION BY PHYSICIAN I have seen and examined the patient. I reviewed the documentation, medical decision making, and treatment plan as noted by the mid-level provider above. I agree with the findings and plan of care. GOSIA INIGUEZ MD, MIRTA L [facility] May 29, 2024 20:35
--- NOTE | 2024-05-30 05:45 | PN ---
[facility] PROGRESS NOTE Date Patient Seen: May 29, 2024 Time of Visit: 10:42 Supervising Physician: [Dr. Hernandez] Primary Care Physician: Chapincito Guardado MD Outpatient Specialists: Inpatient Consults: LEATHA Farrell (Critical care team) , Dr Augustus Ferguson, Dr Eduardo PROBLEM LIST: Acute hypoxic respiratory failure, POA resolved septic shock POA , requiring Levophed, resolved Multifocal Pneumonia, POA, treated Small bowel obstruction POA , r/o clinically Acute complicated cystitis, POA, negative urine culture Hematuria POA, resolved Severe Dehydration, improved Acute kidney injury POA resolved Electrolyte derangement POA ( Hyponatremia, Hyperchloremia) History of chronic opioid use Frailty Debility History of chronic left hip dislocation, Opiate induced Illeus, Hypothyroidism, multiple recent hospitalizations with long hospital stay, opiate overdose w/ morphine, and fibromyalgia, Osteoarthritis , spinal cord stimulation (SCS) INTERVAL HISTORY: Patient is awake alert and oriented x3. As per RN she just turned off Levophed drip. Blood pressure 144/93 with a heart rate in the 80s respiratory rate of 20 saturating 98% with 2 L via nasal cannula and afebrile. Patient had large bowel movement overnight. Per General surgery patient can start clear liquid diet no plans for OR at this time. She continues on TPN. If patient tolerates chloride liquid diet we can stop TPN and start p.o. feeding. Urine output 1.7 L in the last 24 hours with a balance of +1.9 L we will stop c urrent IV fluids and give a one time dose of Lasix 20 mg IV push. On laboratory WBCs at 21.4 likely reactive from high-dose hydrocortisone that was started for refractory shock H&H was 8.1/25.8 seems to be slowly trending down, platelet count 321 K. On chemistries sodium 138 potassium 3.2 covered per protocol BUN 62 creatinine of 1.8 improved from yesterday which was 3.0 GFR of 29 and glucose of 212 mg/dL total calcium 8.1 BNP 569. No growth two blood cultures and no growth to urine culture. 05/26/2024: At the time of my evaluation, the patient was lying in bed. The staff nurse reports no overnight events. The patient is awake, alert and oriented x3. Currently, the patient is on room air and maintaining optimal oxygen saturation. On the monitor, she is hemodynamically stable. The patient is currently on a clear liquid diet and denies any nausea vomiting or diarrhea. Patient denies any abdominal pain and is so far tolerating her feedings. Last bowel movement was reported on 05/25/2024: No other complaint. 05/27/2024: At the time of my evaluation, the patient was lying in bed. Staff nurse present at the bedside. Family member was present. The patient was breathing on room air. A CT chest done on 05/26/2024, showed moderate bilateral pleural effusions bilateral basal atelectasis. There are scattered infiltrates on the right consistent with pneumonia. There was also suspicion for a spiculated nodule. She was hemodynamically stable on the monitor. No complaint shortness of breath or chest pain. The patient is tolerating clear liquid diet. She has not had a bowel movement despite the use Relistor. I's and O's showed a negative balance of 2200.0. On labs, the patient remained with elevated WBC count 15.6 today. Chemistry panel showed no major derangement. Renal parameters improving. The staff nurse reports no acute events overnight. No other complaint. 05/28 patient is evaluated at bedside. Her WBCs downtrending. She is weaned off supplemental oxygen, now on room air. Did have a bowel movement yesterday but has not had one today. She continues on clear liquid diet and tolerating. Continues on antibiotics for pneumonia. Did have a 15 mm nodule, patient was recommended to continue antibiotics for pneumonia and repeat CT imaging in 3-6 months for re-evaluation. Blood pressures are slightly elevated, we will stop hydrocortisone and continue fluids for pressure support. Patient continues on Relistor for constipation. Will optimize bowel regimen. Pending SNF per primary. 05/29 patient is evaluated at bedside. She is weak and deconditioned. Labs showed improved WBC to within normal limits, TERRANCE resolved from admission. Continues on Relistor. Bowel regimen was added yesterday. Patient states did have a large bowel movement. She is pending discharge to SNF today. Continues on antibiotics per ID. REVIEW OF SYSTEMS: General:reports generalized body pain. Neurological: No fainting episodes or seizures. HEENT: No nasal congestion or nasal secretion. Respiratory: No cough, shortness of breath, or wheezing Cardiac: No chest pain or palpitations. Gastrointestinal:yes for nausea and much output to ng tube . Genitourinary: No dysuria hematuria. Skin: No rashes or lesions. Hematological: No bruises or bleeding. Musculoskeletal: reports chronic pain to hands and fingers, back and hip Psychiatric: No depression or panic attacks. PHYSICAL EXAM: GENERAL: Mental status improving weak, awake oriented x 3 GCS 15 HEENT: Sclera non icteric, moist mucosa NECK: Supple, no JVD, trachea midline LUNGS: Clear breath sounds bilaterally. No wheezes HEART: Regular rate and rhythm. Normal S1 and S2, without murmurs ABD: abdomen distended but soft non tender, Bowel sounds hypoactive EXT: No clubbing cyanosis or edema NEURO: AAOx3 no focal weakness LABS: Hematology Labs: Test 05/29/24 06:23 Range/Units White Blood Count 13.1 H 4.8-10.8 K/uL Red Blood Count 2.86 L 4.00-5.50 MIL/uL Hemoglobin 8.1 L 12.0-16.0 g/dL Hematocrit 24.6 L 36-48 % Mean Corpuscular Volume 86.0 79-99 fL Mean Corpuscular Hemoglobin 28.3 27.0-33.0 pg Mean Corpuscular Hemoglobin Concent 32.9 32.0-36.0 g/dL Red Cell Distribution Width 14.8 11.0-15.5 % Platelet Count 260 130-400 K/uL Mean Platelet Volume 8.0 7.5-10.5 fL Nucleated Red Blood Cells 0.0 0.0-0.19 % Chemistry Labs: Test 05/29/24 06:23 Range/Units Sodium Level 135 L 136-145 mmol/L Potassium Level 3.3 L 3.5-5.1 mmol/L Chloride Level 104 101-111 mmol/L Carbon Dioxide Level 24 21-32 mmol/L Blood Urea Nitrogen 53 H 7-18 mg/dL Creatinine 0.9 0.5-1.0 mg/dL Glomerular Filtration Rate Calc 68 >90 mL/min Random Glucose 82 70-105 mg/dL Total Calcium 9.1 8.5-10.1 mg/dL Magnesium Level 1.90 1.80-2.40 mg/dL Total Bilirubin 0.3 0.2-1.0 mg/dL Aspartate Amino Transf (AST/SGOT) 15 10-37 U/L Alanine Aminotransferase (ALT/SGPT) 13 12-78 U/L Alkaline Phosphatase 88 50-136 U/L Total Protein 4.4 L 6.0-8.3 g/dL Albumin 1.5 L 3.5-5.0 g/dL DIAGNOSTICS / RADIOLOGY RESULTS: [ ] PLAN 05/28/2024: For now, going to continue current management for the patient. She will continue room air and we will continue to monitor oxygenation needs. I am going to stop the hydrocortisone. The patient continues antibiotic therapy with IV Merrem and linezolid per ID. We will also continue to monitor the vital signs. The patient continues feeding on clear liquid diet and we will monitor bowel activity. She will remain on Relistor. Optimize bowel regimen with miralax and docusate. We will also monitor her I's and O's. From our standpoint, the patient can be transferred discharged to continue abx per ID. Case management is working on group home facility placement. We will continue to monitor the patient's progress response to management. Further orders per attending and hospital course. NEURO: Minimize central acting medications as possible. Maintain fall precautions, adequate lighting during the day PULMONARY: Supplemental 02 as needed. Maintain aspiration precautions at all times CARDIOVASCULAR: Follow hemodynamics. Vital signs per facility protocol GI & NUTRITION: Continue with nutritional support. Continue stool softeners and laxatives as needed. KIDNEYS & ELECTROLYTES: Strict monitoring of intake, output and overall fluid balance. Avoid nephrotoxic medications to the extent possible. Medications to be dosed according to renal function. Monitor electrolytes and replace as needed ENDOCRINE: Maintain blood glucose between 100-180 at all times. Hypoglycemia protocol in place INFECTIOUS DISEASE: Trend temperature, WBC and procalcitonin level Follow cultures, deescalate antibiotics as soon as possible. Panculture if new onset fever ONCOLOGY/HEMATOLOGY/COAGULATION: Monitor for s/s of bleeding Monitor hemoglobin, coagulation studies as needed SKIN: Pressure ulcer prevention per facility protocol Specialty mattress ORTHO/REHAB: Continue PT/OT Prophylaxis: Continue GI and DVT prophylaxis Code Status: Full Resuscitation Disposition: TBD Other: Patient was seen, case was discussed with supervising MD and agreed upon. RODRIGUEZ HAINES May 30, 2024 05:45
== END 2024-05-29 18:45 | DRG 871 ==
LOC: EDH 09:06 → EDHIP 12:10 → 2CV 17:13 → 2CH 05-24 15:11 → 3DH 05-27 15:20
PROVIDERS: ADMIT Internal Medicine; ATTEND Internal Medicine
PROC: 05HY33Z Insertion of Infusion Device into Upper Vein, Percutaneous Approach (ICD-10-PCS; principal; 2024-05-23)
PROC: B54MZZA Ultrasonography of Right Upper Extremity Veins, Guidance (ICD-10-PCS; 2024-05-23)
PROC: 0D9670Z Drainage of Stomach with Drainage Device, Via Natural or Artificial Opening (ICD-10-PCS; 2024-05-23)
DX: A41.9 Sepsis, unspecified organism (principal); J18.9 Pneumonia, unspecified organism; R65.21 Severe sepsis with septic shock; J96.01 Acute respiratory failure with hypoxia; N17.9 Acute kidney failure, unspecified; N30.01 Acute cystitis with hematuria; K56.600 Partial intestinal obstruction, unspecified as to cause; E87.1 Hypo-osmolality and hyponatremia; K56.7 Ileus, unspecified; J90 Pleural effusion, not elsewhere classified; J98.11 Atelectasis; N18.9 Chronic kidney disease, unspecified; Z20.822 Contact with and (suspected) exposure to COVID-19; E11.22 Type 2 diabetes mellitus with diabetic chronic kidney disease; I12.9 Hypertensive chronic kidney disease with stage 1 through stage 4 chronic kidney disease, or unspecified chronic kidney disease; D64.9 Anemia, unspecified; E03.9 Hypothyroidism, unspecified; G89.29 Other chronic pain; Z90.710 Acquired absence of both cervix and uterus; Z96.643 Presence of artificial hip joint, bilateral; M25.552 Pain in left hip; E78.5 Hyperlipidemia, unspecified; E66.9 Obesity, unspecified; E86.0 Dehydration; E87.8 Other disorders of electrolyte and fluid balance, not elsewhere classified; F32.A Depression, unspecified; R54 Age-related physical debility; T40.605A Adverse effect of unspecified narcotics, initial encounter; M79.7 Fibromyalgia; Z66 Do not resuscitate; Z79.891 Long term (current) use of opiate analgesic; Z85.41 Personal history of malignant neoplasm of cervix uteri; Z88.0 Allergy status to penicillin; Z88.1 Allergy status to other antibiotic agents; Z91.199 Patient's noncompliance with other medical treatment and regimen due to unspecified reason; Z79.899 Other long term (current) drug therapy; Y92.89 Other specified places as the place of occurrence of the external cause
CPT/HCPCS: 36415; 71045; 71250; 74018; 74176; 80048; 80053; 81001; 82010; 82140; 82550; 82948; 83540; 83550; 83605; 83735; 83880; 84100; 84145; 84484; 85025; 85027; 85384; 85610; 85730; 87040; 87086; 87635; 87804; 93005; 96361; 96374; 99291; G0378; J1171; J1644; J1720; J1885; J1940; J2020; J2060; J2185; J2212; J2470; J3475; J3480; J3490

== ENCOUNTER 2024-06-22 17:04 | Inpatient (IN) | payer OTHER ==
[~2024-06-22] VITALS: Ht 162.6 cm; Wt 89.8 kg
[~2024-06-22 17:04] MED LIST changes: +BALS60OI TP; -CEFP200T14 PO; +HONE44PA TP; -HYDR4 PO; -LOPE2TAB26 PO; -TIZA-194 PO
--- NOTE | 2024-06-22 17:49 | NUR ---
NEEDLE MAKER INFORMED OF NEED FOR STAT PICC LINE. ORDER PROVIDED
[2024-06-22 17:52] LABS: BASOPHILS # (AUTO) 0.19 K/uL (0.00-0.20); BASOPHILS % (AUTO) 0.7 % (0.0-5.0); EOSINOPHILS # (AUTO) 0.04 K/uL (0.00-0.70); EOSINOPHILS % (AUTO) 0.2 % (0.0-8.0); HEMATOCRIT 36.6 % (36-48); IMMATURE GRANULOCYTE ABSOLUTE 0.47 K/uL (0-1); LYMPHOCYTES # (AUTO) 1.2 K/uL (1.0-4.8); LYMPHOCYTES % (AUTO) 4.4 % (21.0-51.0); MEAN CORPUSCULAR HEMOGLOBIN 29.7 pg (27.0-33.0); MEAN CORPUSCULAR HGB CONC 33.1 g/dL (32.0-36.0); MEAN CORPUSCULAR VOLUME 89.7 fL (79-99); MONOCYTES # (AUTO) 0.2 K/uL (0.1-1.0); MONOCYTES % (AUTO) 0.9 % (3.0-13.0); NEUTROPHILS # (AUTO) 24.2 K/uL (1.8-7.7); PLATELET COUNT (AUTO) 534 K/uL (130-400); RED BLOOD CELL COUNT(AUTO) 4.08 MIL/uL (4.00-5.50); RED CELL DISTRIBUTION WIDTH 15.5 % (11.0-15.5); WHITE BLOOD COUNT (AUTO) 26.3 K/uL (4.8-10.8)
[2024-06-22 18:07] LABS: CREATININE 1.6 mg/dL (0.5-1.0); POTASSIUM 3.6 mmol/L (3.5-5.1)
[2024-06-22 18:10] LABS: B-TYPE NATRIURETIC PEPTIDE 119 pg/mL (0-100)
--- NOTE | 2024-06-22 18:11 | HMCIMG ---
INDICATION: LETHARGY TECHNIQUE: CHEST 1VW COMPARISON: 06/11/2024 FINDINGS AND IMPRESSION: Prominent bilateral interstitial markings which may represent bronchitis or vascular congestion in the proper clinical setting. Cardiac silhouette is within normal limits. Mild degenerative changes of the spine. Thoracic spine stimulator leads are seen.
[2024-06-22] MEDS: PANTOPrazole 40 MG/VIAL IVP ONE (18:12)
[2024-06-22] MEDS: cefTRIAXone 1G VIAL IVPB ONE (18:12)
--- NOTE | 2024-06-22 18:13 | NUR ---
PT JUST PLACED IN FLAT POSITION/SUPINE D/T SBP IN THE 60-80'S
[2024-06-22] MEDS: hydroMORPHone 0.5 MG SYG (0.5MG/0.5ML) ONE (18:25)
[2024-06-22] MEDS: hydroMORPHone 0.5 MG SYG (0.5MG/0.5ML) IVP ONE (18:25)
[2024-06-22 18:51] LABS: BAND NEUTROPHILS % (MANUAL) 73 % (0-2); LYMPHOCYTES % (MANUAL) 3 % (22-44); MAN.DIFF COMMENT-IMPRESSION MANUAL DIFFERENTIAL; SEGMENTED NEUTROPHILS % 24 % (40-70); TOTAL CELLS COUNTED 100
--- NOTE | 2024-06-22 19:06 | NUR ---
PICC LINE: RG [facility] NURSE HERE TO PLACE PICC LINE
--- NOTE | 2024-06-22 19:18 | ERN ---
General Chief Complaint: Gi Problem Stated Complaint: LETHARGY, WEAKNESS AND UGI BLEED Time Seen by MD: 17:08 History of Present Illness Initial Comments 73-year-old female who was transferred by EMS from [facility] for altered mentation and lethargy. Patient also had an episode of coffee-ground emesis. Patient has a history of anemia. Patient was very poor nutrition he is swollen in the legs. Toxic in appearance. Medical history: Fibromyalgia, diabetes type 2, anemia, dysphagia, hypertension, wasting and atrophy Allergies: Coded Allergies: butorphanol (Unverified Allergy, Intermediate, 04/06/24) Penicillins (Verified Allergy, Unknown, 07/17/16) levofloxacin (Unverified Allergy, Unknown, 04/08/24) pregabalin (Unverified Allergy, Unknown, 07/17/16) vancomycin (Verified Allergy, Unknown, 07/17/16) Uncoded Allergies: PCN (Allergy, Mild, 11/22/11) VANCO (Allergy, Unknown, 07/17/16) Home Meds Active Scripts Honey (Dynamic [employer]ney) 100 % Paste..ml., 1 APPL TP DAILY for 30 Days, #30 - Prov:SERGE FORD MD 06/18/24 Balsam [place] Oil (Venelex Ointment) 60 Gm Oint...g., 60 GM TP TID for 30 Days, #30 - 1 Refill Prov:SERGE FORD MD 06/18/24 Fentanyl (Fentanyl) 75 Mcg/Hour Patch.td72, 1 PATCH TP Q3D for 3 Days, #3 PATCH 0 Refills Prov:MARTIN GALINDO MD 05/07/24 Lorazepam (Ativan) 2 Mg Tablet, 1 TAB PO HSPRN PRN for sleep for 30 Days, #30 TAB 0 Refills Prov:MARTIN GALINDO MD 05/07/24 Hydromorphone HCl (Hydromorphone HCl) 2 Mg Tablet, 1 TAB PO TID for pain for 30 Days, #90 TAB 0 Refills Prov:MARTIN GALINDO MD 05/07/24 Diphenoxylate HCl/Atropine (Lomotil Tablet) 2.5 Mg-0.025 Mg Tablet, 1 TAB PO QID for 30 Days, #30 TAB 2 Refills Prov:MARTIN GALINDO MD 05/07/24 Reported Medications Amlodipine Besylate (Amlodipine Besylate) 5 Mg Tablet, 1 TAB PO DAILY for 30 Days, #30 TAB 0 Refills 05/07/24 Nitroglycerin (Nitroglycerin) 0.4 Mg Tab.subl, 1 TAB SL AD for chest pain, #25 TAB 0 Refills 1st sign of attack; may repeat every 5 mins; if pain persists after 3 in 15 min, medical attention is recommended 04/06/24 Tizanidine HCl (Tizanidine HCl) 2 Mg Capsule, 3 CAP PO BID for 30 Days, #60 CAP 0 Refills 04/06/24 Simethicone (Simethicone) 80 Mg Tab.chew, 1 TAB PO TID for gas for 6 Days, #20 TAB 0 Refills 04/06/24 Ondansetron HCl (Ondansetron HCl) 4 Mg Tablet, 1 TAB PO Q6HPRN PRN for nausea/vomiting, #10 TAB 0 Refills 04/06/24 Lactulose (Lactulose) 20 Gram/30 Ml Solution, 30 ML PO Q6HPRN PRN for CONSTIPATION for 30 Days, #900 ML 0 Refills 04/06/24 Hydroxyzine HCl (Hydroxyzine HCl) 25 Mg Tablet, 1 TAB PO TID for anxiety for 30 Days, #90 TAB 0 Refills 04/06/24 Hydromorphone HCl (Hydromorphone HCl) 8 Mg Tablet, 1 TAB PO Q6HPRN PRN for pain for 30 Days, #120 TAB 0 Refills 04/06/24 Docusate Sodium (Docusate Sodium) 100 Mg Capsule, 1 CAP PO DAILY for constipation for 30 Days, #30 CAP 0 Refills 04/06/24 Clonidine HCl (Clonidine HCl) 0.1 Mg Tablet, 1 TAB PO TIDP PRN for IF SBP GREATER THAN 160 for 30 Days, #30 TAB 0 Refills 04/06/24 Albuterol Sulfate (Albuterol Sulfate) 2.5 Mg/0.5 Ml Vial.neb, 1 VIAL NEB Q4H for shortness of breath for 10 Days, #30 ML 0 Refills 04/06/24 Acetaminophen (Acetaminophen) 325 Mg Tablet, 2 TAB PO Q4HPRN PRN for pain or fever for 30 Days, #30 TAB 0 Refills 04/06/24 Melatonin (Melatonin) 3 Mg Tablet, 2 TAB PO HS for sleep for 30 Days, #30 TAB 0 Refills 04/06/24 Trazodone HCl (Trazodone HCl) 150 Mg Tablet, 1 TAB PO HS for 30 Days, #30 TAB 0 Refills 04/06/24 Ascorbic Acid (Vitamin C) 500 Mg Tablet, 1 TAB PO DAILY for 30 Days, #30 TAB 0 Refills 04/06/24 Pantoprazole Sodium (Pantoprazole Sodium) 40 Mg Tablet.dr, 1 TAB PO BID for 30 Days, #30 TAB 0 Refills 04/06/24 Multivitamin W/Iron, Minerals (Multivitamins with Iron) 1 Each Tab.chew, 1 TAB PO DAILY for 30 Days, #30 TAB 0 Refills 04/06/24 Buspirone HCl (Buspirone HCl) 7.5 Mg Tablet, 1 TAB PO BID for 30 Days, #60 TAB 0 Refills 04/06/24 Sucralfate (Sucralfate) 1 Gram/10 Ml Oral.susp, 10 ML PO BID for 30 Days, #600 ML 0 Refills 04/06/24 Thyroid,Pork ([place] Thyroid) 180 Mg Tablet, 1 TAB PO DAILY for 30 Days, #30 TAB 0 Refills 04/06/24 Gabapentin (Gabapentin) 600 Mg Tablet, 600 MG PO TID, TAB 07/11/23 Metoprolol Tartrate (Metoprolol Tartrate) 100 Mg Tablet, 100 MG PO BID, TAB 07/11/23 [Thyroid] No Conflict Check, 3 GR PO ACBKFST 07/11/23 Valsartan/Hydrochlorothiazide (Valsartan-Hctz 320-25 mg Tab) 320 Mg-25 Mg Tablet, 1 TAB PO DAILY, TAB 07/11/23 Fentanyl (Fentanyl) 100 Mcg/Hour Patch.td72, 1 EACH TD Q72 HRS 07/11/23 Discontinued Reported Medications Loperamide HCl (Loperamide) 2 Mg Tablet, 1 TAB PO DAILY for loose stool for 30 Days, #180 TAB 0 Refills 04/06/24 Loperamide HCl (Loperamide) 2 Mg Tablet, 1 TAB PO DAILY for loose stool for 30 Days, #180 TAB 0 Refills 04/06/24 Cefpodoxime Proxetil (Cefpodoxime Proxetil) 200 Mg Tablet, 1 TAB PO BID for 10 Days, #20 TAB 0 Refills 04/06/24 Tizanidine HCl (Tizanidine HCl) 2 Mg Tablet, 6 MG PO BID, TAB 07/11/23 Past Medical History Past Medical History: Anemia, Anxiety, Diabetes-Type II, Fibromyalgia, GERD, GI Bleed, High Cholesterol Medical History Other: THYROID PROBLEMS, GI BLEED, BLOOD Tx, HYPOXIA, DYSPHAGIA, HEMATURIA Past Surgical History: Unknown Surgical History Other: HIP FX'S W/REPAIRS X 3 Family History Family History: Negative Social History Social History: Smokers Female( History) History: Not Applicable ROS Dictation CONSTITUTIONAL: Generalized weakness and fatigue HEAD/FACE: No signs of trauma. EENT: No eye pain, no blurred vision, no tearing, no double vision, no ear pain, no ear discharge, no nose pain, no nasal congestion, no throat pain, no th roat swelling, no mouth pain. RESPIRATORY: No cough, no orthopnea, no SOB, no stridor, no wheezing. CARDIOVASCULAR: No chest pain, no edema, no palpitations, no syncope. GASTROINTESTINAL/ABDOMINAL: Dark vomit GENITOURINARY: No abnormal discharge, no dysuria, no frequent urination, no hematuria. No complaints of pain in the genitals. MUSCULOSKELETAL: No back pain, no gout, no joint pain, no joint swelling, no muscle pain, no muscle stiffness, no neck pain. INTEGUMENTARY: No change in color, no change in hair/nails, no dryness, no lesion, no lumps, no rash. NEUROLOGICAL/PSYCH: No anxiety, not depressed, no emotional problem, no headache, no numbness, no pre-existing deficit, no history of seizures, no tremors, no weakness. HEMATOLOGIC/LYMPHATIC: Not anemic, no history of blood clots, no apparent bleeding, no bruising, glands not swollen. All Systems Negative, Except as Noted. Physical Exam Physical Exam Dictation VITAL SIGNS: Reviewed. GENERAL APPEARANCE: Lethargic HEAD AND FACE: Non-traumatic. EYES: PERRL, pink conjunctivas, eyelid no trauma, anterior chamber clear. EARS: Pinnas intact and no signs of trauma or erythema. Ear canals clear and no discharge. TMs no erythema. NOSE: No discharge, no bleeding. OROPHARYNX: Mouth normal, teeth no caries, tongue pink. Pharynx clear, no erythema. Tonsils no exudates, no abscesses noted. Mucous membrane moist. NECK: Supple, non-tender, no thyromegaly, no masses, no JVD, no bruits. BREAST: Deferred. CHEST: No tenderness, no crepitus, no paradoxical movement, no retractions. LUNGS: Clear, well-ventilated, symmetric, no rales, no wheezing, no rhonchi, no stridor, good breath sounds bilaterally. HEART: Regular rate, regular rhythm, no murmur, no gallops. VASCULAR: No peripheral edema. ABDOMEN: Soft, positive bowel sounds, nondistended, no guarding, nontender, no rebound, no masses no hepatomegaly, no splenomegaly, no Pimentel's sign, no hernias. RECTAL: Deferred. GENITAL: Deferred. NEUROLOGICAL: Normal speech, gross motor function intact, gross sensory function intact. MUSCULOSKELETAL: Swollen legs EXTREMITIES: Nontender, full range of motion. SKIN: Pale. LYMPHATICS: Deferred. Results Laboratory and Microbiology Lab and Micro Result Laboratory Tests Test 06/22/24 17:36 White Blood Count 26.3 K/uL (4.8-10.8) H Red Blood Count 4.08 MIL/uL (4.00-5.50) Hemoglobin 12.1 g/dL (12.0-16.0) Hematocrit 36.6 % (36-48) Mean Corpuscular Volume 89.7 fL (79-99) Mean Corpuscular Hemoglobin 29.7 pg (27.0-33.0) Mean Corpuscular Hemoglobin Concent 33.1 g/dL (32.0-36.0) Red Cell Distribution Width 15.5 % (11.0-15.5) Platelet Count 534 K/uL (130-400) H Mean Platelet Volume 8.5 fL (7.5-10.5) Immature Granulocyte % (Auto) 1.8 % (0-1) H Neutrophils (%) (Auto) 92.0 % (40.0-77.0) H Lymphocytes (%) (Auto) 4.4 % (21.0-51.0) L Monocytes (%) (Auto) 0.9 % (3.0-13.0) L Eosinophils (%) (Auto) 0.2 % (0.0-8.0) Basophils (%) (Auto) 0.7 % (0.0-5.0) Neutrophils # (Auto) 24.2 K/uL (1.8-7.7) H Lymphocytes # (Auto) 1.2 K/uL (1.0-4.8) Monocytes # (Auto) 0.2 K/uL (0.1-1.0) Eosinophils # (Auto) 0.04 K/uL (0.00-0.70) Basophils # (Auto) 0.19 K/uL (0.00-0.20) Absolute Immature Granulocyte (auto 0.47 K/uL (0-1) Segmented Neutrophils % 24 % (40-70) L Band Neutrophils % 73 % (0-2) H Lymphocytes % (Manual) 3 % (22-44) L Nucleated Red Blood Cells 0.0 % (0.0-0.19) Differential Comment MANUAL DIFFERENTIAL White Cell Morphology Comment Platelet Morphology Comment Red Blood Cell Morphology See comments Sodium Level 135 mmol/L (136-145) L Potassium Level 3.6 mmol/L (3.5-5.1) Chloride Level 101 mmol/L (101-111) Carbon Dioxide Level 21 mmol/L (21-32) Blood Urea Nitrogen 22 mg/dL (7-18) H Creatinine 1.6 mg/dL (0.5-1.0) H Glomerular Filtration Rate Calc 34 mL/min (>90) Random Glucose 69 mg/dL (70-105) L Lactic Acid Level 6.7 mmol/L (0.8-2.5) H Total Calcium 9.0 mg/dL (8.5-10.1) Total Creatine Kinase 43 U/L (21-232) # Troponin I High Sensitivity 5 ng/L (4-50) B-Type Natriuretic Peptide 119 pg/mL (0-100) H MDM CC: Lethargy possible GI bleed Historian: Patient Comorbidities: Advanced age, anemia, anxiety, diabetes type 2, GERD, history of GI bleed, dyslipidemia, dysphagia Limitations by social determinants of health: None Initially patient was in extremities. Blood pressure 62/50. Pulse of 116. IO established since IV access was difficult. See the procedure note. Fluids started. Blood pressure responded. Initial concern for sepsis initial concern for sepsis differential diagnosis: Sepsis, dehydration, GI bleed, other. Appears to be in shock on exam. Labs (independently interpreted by me): Leukocytosis 26k. Left shift 92% neutrophils , 73% bands. No anemia. metabolic panel shows creatinine 1.6 BUN 22. Lactic acid 6.7. CXR (independently interpreted by me ): no focal infiltrates cardiomegaly or obvious source of infection. Unremarkable. Treatment in ED: 2 L lactated Ringer's, Rocephin, Protonix, IV Dilaudid for pain control. Sepsis focused reassessment: On sepsis focused re-evaluation after the fluid bolus and antibiotics, patient is still remains a bit hypotensive, blood pressure in the 80s. Septic shock. Starting norepinephrine. We will send of the ICU. Consultation: Hospitalist for admission, ICU team for consultation. ED Course Orders Procedure Category Date Status Time Iv Insertion CPOE 06/22/24 Transmitted 17:12 Pulse Ox(Continuous) RT 06/22/24 Transmitted 17:12 Vital Signs Per CPOE 06/22/24 Transmitted Routine 17:12 12 Lead Ekg Tracing- EKG 06/22/24 Logged Technical 17:12 Cbc With Differential LAB 06/22/24 Complete 17:12 Blood Cult RICARDO 06/22/24 In Process 17:12 Urinalysis Profile LAB 06/22/24 Logged 17:12 Culture Urine RICARDO 06/22/24 Logged 17:12 Creatine Kinase, Total LAB 06/22/24 Complete 17:12 Troponin I High LAB 06/22/24 Complete Sensitivity 17:12 Lactic Acid LAB 06/22/24 Complete 17:12 Basic Metabolic Panel LAB 06/22/24 Complete 17:12 B-Type Natriuretic LAB 06/22/24 Complete Peptide 17:12 Chest 1vw RAD 06/22/24 Resulted 17:12 Rbc-Active Bleeding BBK 06/22/24 In Process 17:12 Type And Screen BBK 06/22/24 In Process 17:12 Pantoprazole 40mg Inj PHA 06/22/24 Complete (Protonix 40mg Inj 17:30 Ceftriaxone 1g Vial PHA 06/22/24 Complete (Rocephine 1g Inj) 17:30 Place Picc Line CPOE 06/22/24 Transmitted 17:34 Hydromorphone 0.5mg PHA 06/22/24 Complete Syg (Dilaudid 0.5mg 18:30 Manual Differential LAB 06/22/24 Complete 17:36 Hydromorphone 0.5mg PHA 06/22/24 Complete Syg (Dilaudid 0.5mg 18:12 Urinalysis LAB 06/22/24 Logged W/Microscopic 19:21 Ct Abdomen/Pelvis W/O CT 06/22/24 Logged Contrast 19:21 Lactated Ringers PHA 06/22/24 In Process 1000ml (Lactated 19:30 Norepinephrin 4mg/Ns PHA 06/22/24 In Process 250ml (Levophed 4mg 19:30 Chest 1vw RAD 06/22/24 Logged 19:28 Current Medications Medications (Trade) Dose Ordered Sig/Dionisio Route PRN Reason Start Time Stop Time Status Last Admin Dose Admin Ceftriaxone Sodium (ROCEphine 1G INJ) 1 gm ONCE ONCE IVPB 06/22/24 17:30 06/22/24 17:31 DC 06/22/24 18:12 Hydromorphone HCl (DiLAUDid 0.5MG INJ) 0.5 mg ONCE ONCE IVP 06/22/24 18:30 06/22/24 18:31 DC 06/22/24 18:25 Hydromorphone HCl (DiLAUDid 0.5MG INJ) 0.5 mg STK-MED ONCE .ROUTE 06/22/24 18:12 06/22/24 18:12 DC Lactated Ringer's 2,000 ml @ 0 mls/hr ONCE ONCE IV 06/22/24 19:30 06/22/24 19:31 Norepinephrine 250 ml @ 0 mls/hr PROTOCOL IV 06/22/24 19:30 07/22/24 19:29 Pantoprazole Sodium (PROTonix 40MG INJ) 80 mg ONCE ONCE IVP 06/22/24 17:30 06/22/24 17:31 DC 06/22/24 18:12 Vital Signs Date Time Temp Pulse Resp B/P (MAP) Pulse Ox O2 Delivery O2 Flow Rate FiO2 06/22/24 18:59 97.7 103 16 84/50 96 Nasal Cannula* 4 36 06/22/24 18:30 97.7 113 16 65/41 92 Nasal Cannula* 4 36 06/22/24 17:05 94.5 116 14 62/50 98 Nasal Cannula 2.0 DX & DISP Disposition: Inpatient Departure Impression: Primary Impression: Septic shock Additional Impression: GI bleed Critical Time: 30 minutes (Critical Care Procedure NoteAuthorized and Performed by: meTotal critical care time: Approximately 36 minutesDue to a high pro bability of clinically significant, life threatening deterioration, the patient required my highest level of preparedness to intervene emergently and I personally spent this critical care time directly and personally managing the patient. This critical care time included obtaining a history; examining the patient; pulse oximetry; ordering and review of studies; arranging urgent sofia atment with development of a management plan; evaluation of patient's response to treatment; frequent reassessment; and, discussions with other providers.This critical care time was performed to assess and manage the high probability of imminent, life-threatening deterioration that could result in multi-organ failure. It was exclusive of separately billable procedures and treating other patients and teaching time.Please see MDM section and the rest of the note for further information on patient assessment and treatment.) Condition: Stable Referrals: MAMIE RODRIGUEZ MD (PCP) BRAYDON ANDRE DO Jun 22, 2024 19:18
--- NOTE | 2024-06-22 19:25 | NUR ---
second bolus lr running at this time
--- NOTE | 2024-06-22 19:43 | NUR ---
per picc ok to use at this time
--- NOTE | 2024-06-22 19:44 | NUR ---
icu consult to be completed by dr currie
--- NOTE | 2024-06-22 19:58 | HP ---
History of Present Illness Reason for Visit: weakness Referring MD: Dr. Gutierrez History of Present Illness Ms. Chandler is a 73-year-old female that was seen and examined today on 06/22/2024. Patient is a good historian of personal health Patient states that she came to the emergency department with a chief complaint of abdominal pain. Onset was two days ago. Location is to left lower quadrant. Character is described as sharp. Patient reports associated nausea and vomiting. There was no alleviating factors. There was no aggravating factors. Today assisted facility sent patient to the hospital thought she was acting confused. Patient arrived hypotensive. Patient's mentation improved once her blood pressure improves with Levophed. Today in the emergency department WBCs 26.3, left shift 92.0%, creatinine 1.6, BUN 22, lactic acid 6.7, no urinalysis has been collected or sent to lab, chest x-ray shows prominent interstitial markings, BNP is 119. Additionally patient presented with a blood pressure of 62/50 together with heart rate of 116, lactic acid of 6.7 and leukocytosis patient met clinical sepsis criteria for septic shock Past Medical History Patient History: Cancer MOTHER, Family history: Cardiovascular disease FATHER ADDITIONAL PAST MEDICAL HISTORY: [Hypertension, hypothyroidism, Diabetes mellitius type2, chronic left hip pain, anemia, cervical CA, fibromyalgia] SOCIAL HISTORY: [Negative for smoking, alcohol use, drug use patient lives at a local [facility]] SURGICAL HISTORY: [Hysterectomy, bilateral hip surgery] Review of Systems General: No Fever, No Chills, No Night Sweats, No Fatigue, No Malaise, No Appetite, No Other HEENT: No Head Aches, No Visual Changes, No Eye Pain, No Ear Pain, No Dyspha aneesh, No Sinus Congestion, No Post Nasal Drip, No Sore Throat, No Other Pulmonary: No Dyspnea, No Cough, No Pleuritic Chest Pain, No Other Cardiovascular: No: Chest Pain, Palpitations, Orthopnea, Paroxysmal Noc. D yspnea, Edema, Lt Headedness, Other Gastrointestinal: Nausea, Vomiting, Abdominal Pain; No: Diarrhea, Constipation, Melena, Hematochezia, Other Genitourinary: No Dysuria, No Frequency, No Incontinence, No Hematuria, No Retention, No Other Musculoskeletal: No: other, neck pain, shoulder pain, arm pain, back pain, hand pain, leg pain, foot pain Skin: No Urticaria, No Rash, No Other Neurological: No: Weakness, Numbness, Incoordination, Change in speech, Confusion, Seizures, Other Allergies: Coded Allergies: butorphanol (Unverified Allergy, Intermediate, 04/06/24) Penicillins (Verified Allergy, Unknown, 07/17/16) levofloxacin (Unverified Allergy, Unknown, 04/08/24) pregabalin (Unverified Allergy, Unknown, 07/17/16) vancomycin (Verified Allergy, Unknown, 07/17/16) Uncoded Allergies: PCN (Allergy, Mild, 11/22/11) VANCO (Allergy, Unknown, 07/17/16) Scheduled Albuterol Sulfate (Albuterol Sulfate), 1 VIAL NEB Q4H, (Reported) Amlodipine Besylate (Amlodipine Besylate), 1 TAB PO DAILY, (Reported) Ascorbic Acid (Vitamin C), 1 TAB PO DAILY, (Reported) Balsam [place] Oil (Venelex Ointment), 60 GM TP TID Buspirone HCl (Buspirone HCl), 1 TAB PO BID, (Reported) Diphenoxylate HCl/Atropine (Lomotil Tablet), 1 TAB PO QID Docusate Sodium (Docusate Sodium), 1 CAP PO DAILY, (Reported) Fentanyl (Fentanyl), 1 EACH TD Q72 HRS, (Reported) Fentanyl (Fentanyl), 1 PATCH TP Q3D Gabapentin (Gabapentin), 600 MG PO TID, (Reported) Honey (Medihoney), 1 APPL TP DAILY Hydromorphone HCl (Hydromorphone HCl), 1 TAB PO TID Hydroxyzine HCl (Hydroxyzine HCl), 1 TAB PO TID, (Reported) Melatonin (Melatonin), 2 TAB PO HS, (Reported) Metoprolol Tartrate (Metoprolol Tartrate), 100 MG PO BID, (Reported) Multivitamin W/Iron, Minerals (Multivitamins with Iron), 1 TAB PO DAILY, (Reported) Nitroglycerin (Nitroglycerin), 1 TAB SL AD, (Reported) Pantoprazole Sodium (Pantoprazole Sodium), 1 TAB PO BID, (Reported) Simethicone (Simethicone), 1 TAB PO TID, (Reported) Sucralfate (Sucralfate), 10 ML PO BID, (Reported) Thyroid,Pork ([place] Thyroid), 1 TAB PO DAILY, (Reported) Tizanidine HCl (Tizanidine HCl), 3 CAP PO BID, (Reported) Trazodone HCl (Trazodone HCl), 1 TAB PO HS, (Reported) Valsartan/Hydrochlorothiazide (Valsartan-Hctz 320-25 mg Tab), 1 TAB PO DAILY, (Reported) [Thyroid], 3 GR PO ACBKFST, (Reported) Scheduled PRN Acetaminophen (Acetaminophen), 2 TAB PO Q4HPRN PRN for pain or fever, (Reported) Clonidine HCl (Clonidine HCl), 1 TAB PO TIDP PRN for IF SBP GREATER THAN 160, (Reported) Hydromorphone HCl (Hydromorphone HCl), 1 TAB PO Q6HPRN PRN for pain, (Reported) Lactulose (Lactulose), 30 ML PO Q6HPRN PRN for CONSTIPATION, (Reported) Lorazepam (Ativan), 1 TAB PO HSPRN PRN for sleep Ondansetron HCl (Ondansetron HCl), 1 TAB PO Q6HPRN PRN for nausea/vomiting, (Reported) Discontinued Medications Cefpodoxime Proxetil (Cefpodoxime Proxetil), 1 TAB PO BID, (Reported) Loperamide HCl (Loperamide), 1 TAB PO DAILY, (Reported) Loperamide HCl (Loperamide), 1 TAB PO DAILY, (Reported) Tizanidine HCl (Tizanidine HCl), 6 MG PO BID, (Reported) Exam Vital Signs Vital Signs Date Time Temp Pulse Resp B/P (MAP) Pulse Ox O2 Delivery O2 Flow Rate FiO2 06/22/24 18:59 97.7 103 16 84/50 96 Nasal Cannula* 4 36 General Appearance: Alert, Oriented X3, Cooperative, severe distress HEENT: Atraumatic, EOMI Respiratory: Clear to auscultation, Normal air movement, NL respiratory effort Cardiovascular: Regular rate, Regular rhythm, Normal S1, Normal S2 Abdominal: Normal bowel sounds, Other (Positive tenderness) Extremities: No edema Skin: No significant lesion Neuro: Normal speech, Cranial nerves 3-12 NL Psych/Mental Status: Mental status NL, Mood NL, Thoughts/Content NL Assessment/Plan ASSESSMENT: [ Septic shock, POA, unknown origin Hypotension secondary to above, POA Leukocytosis , POA Lactic acidosis, POA Diabetes mellitius type2 Hypertension Hypothyroidism Fibromyalgia Chronic hip pain Abdominal pain, POA PLAN: [ Admit patient to intensive care unit as inpatient status. Place patient on telemetry monitoring. Patient will be followed by critical care service. As-needed vasopressor support with Levophed per hospital protocol Further vasopressor support recommendations from critical Care team Consult infectious disease service stat for antimicrobial stewardship and recommendations given patient's sepsis and multiple antibiotic allergies Empiric antibiotic therapy per Infectious Disease Service recommendation Fluid resuscitation with lactated Ringer's 30 mL/kg Repeat lactic acid in a.m. Follow up with the procalcitonin Check blood culture, follow up with the results Patient is still pending urinalysis says to be collected and sent to lab Obtain respiratory culture, follow up with the results Check hemoglobin A1c in a.m. Glucometer checks a.c. and HS Humulin R sliding scale IV fluid maintenance therapy lactated Ringer's 75 mL/HR Check TSH in a.m. Consider resuming home medications once they are reconciled Avoid patient's high blood pressure medications at this time due to current hypotension At time of admission CT of abdomen and pelvis has been ordered, however is still pending to be performed and resulted. Follow up with results from CT abdomen and pelvis, consult General surgery Service if needed. GI prophylaxis, Protonix DVT prophylaxis, heparin ADVANCED CARE PLANNING 1. Which of the following were discussed? Hospice Care - Yes Therapeutic options - Yes Advance Directives - Yes -patient states he does not have any advance directives in place at this time however has been Edward can make decisions for her if she becomes unable. Other discussions - patient wishes to remain a full code at this time 2. Discussed with who? Patient 3. Voluntary nature of this service was explained to the patient? Yes 4. Amount of time spent - ____ 16 minutes ___ 5. Reviewed by Physician? (if this service was performed by NPP) Yes Critical Care Time: I spent ___ 51 ___ minutes of critical care time with the patient. I r eviewed lab work, change the patient's medication, and coordinated protocol in the event of tachycardia or desaturation. The patient status remains unchanged This document was generated in part using voice recognition software, occasional wrong word or sound alike substitutions may have occurred due to the inherent limitations of voice recognition software. Read the chart carefully and recognize using context, where the substitutions have occurred. Although every effort was made to edit the content, hard metals hand engraver and typing errors may occur ATTESTATION BY PHYSICIAN I have seen and examined the patient. I reviewed the documentation, medical decision making, and treatment plan as noted by the mid-level provider above. I agree with the findings and plan of care. JAMES ARANDA [facility] Jun 22, 2024 19:58
--- NOTE | 2024-06-22 20:00 | CONS ---
[facility] CONSULTATION NOTE Date Patient Seen: Jun 22, 2024 Time of Visit: 19:55 Supervising Physician: Dr. Kolby Marte Reason for Consultation: Septic shock Consulting Physician: Liliana Kauffman Outpatient Specialists: [ ] Inpatient Consults: [ ] PROBLEM LIST: Acute hypoxic Respiratory failure POA Acute encephalopathy, in the setting of severe sepsis POA Acute bowel perforation, POA Shock etiology sepsis versus hemorrhagic POA Urinary tract infection, POA Acute kidney injury, POA Lactic acidosis, POA Chronic debility, POA DM type 2, POA GERD, POA History small-bowel obstruction History of fibromyalgia History of hypertension, now hypotensive in the setting of septic shock versus hemorrhagic shock PLAN: Continue ICU care Complete bedrest for now Intubation watch Start Protonix H&H q.6 Obtain COVID and flu test 500 cc of LR bolus now Continue Levophed drip Keep map above 65 mmHg Insert Hearn catheter Strict I&O General surgery consulted Blood transfusion if hemoglobin drops below seven or becomes unstable Continue O2 therapy Keep O2 saturation above 90% Continue cefepime IV scheduled Follow up culture results Trend lactic acid level Aspiration precautions Keep patient NPO for now GI consult in a.m. Avoid nephrotoxic agents Renally dose all medications Bilateral SCDs Hold anticoagulation in the setting of possible GI bleed CBC, CMP, magnesium level daily Rest of plan care of primary HPI: 73-year-old female with past medical history of fibromyalgia, DM type 2, chronic anemia, GERD, hypertension, debility, recent admission last month with septic shock, multifocal pneumonia, GI bleed, and possible SBO presented from [facility] here for alteration in mental status and increasing lethargy and found to have septic shock, UTI, possible GI bleed, urinary tract infection, and severe lactic acidosis. Initial evaluation in ED patient was found to have low systolic blood pressure in the 80s, with heart rate in the 1 10. Patient was also found to be hypoxemic requiring O2 therapy. In ED patient was initiated on 2 L of IV fluids, without significant improvement in her blood pressure. Patient was subsequently started on Levophed drip and consulted critical Care for evaluation and septic shock management. Patient was seen and examined in ED with no relatives present at bedside. Unable to complete ROS due to lethargy. At present patient is currently sinus tach on the monitor, currently getting2 L of IV bolus, on O2 therapy with O2 saturation at 95%. Patient looks very lethargic, wakes up on vigorous stimulation. [place] [address], hemoglobin of 12.1, and hematocrit of 31.6. Her chemistry is significant for creatinine level of 1.6, lactic acid lev el of 6.7, her ABG consistent with mild toxemia with mild metabolic acidosis, UA showed leuko esterase. Chest x-ray did not reveal any acute infiltrates, CT of the abdomen and pelvis is currently pending at this time. All information were obtained from prior medical record, and ER staff report PAST MEDICAL HX: see above PAST SURGICAL HX: noncontributory SOCIAL HISTORY: No tobacco, ETOH, or illicit drug use Coded Allergies: butorphanol (Unverified Allergy, Intermediate, 04/06/24) Penicillins (Verified Allergy, Unknown, 07/17/16) levofloxacin (Unverified Allergy, Unknown, 04/08/24) pregabalin (Unverified Allergy, Unknown, 07/17/16) vancomycin (Verified Allergy, Unknown, 07/17/16) Uncoded Allergies: PCN (Allergy, Mild, 11/22/11) VANCO (Allergy, Unknown, 07/17/16) REVIEW OF SYSTEMS: Unable to obtain due to alteration in mental status PHYSICAL EXAM: GENERAL: Encephalopathic, looks pale HEENT: EOMI, Sclera non icteric, moist mucosa NECK: Supple, no JVD, trachea midline LUNGS: Diminished bibasilar air. No wheezes HEART: Sinus tach on the monitor. Normal S1 and S2, without murmurs ABD: Abdomen is distended and tender to palpate. Bowel sounds present EXT: No clubbing cyanosis or edema NEURO: Encephalopathic Vital Signs (last 8hr) Date Time Temp Pulse Resp B/P (MAP) Pulse Ox O2 Delivery O2 Flow Rate FiO2 06/22/24 18:59 97.7 103 16 84/50 96 Nasal Cannula* 4 36 06/22/24 18:30 97.7 113 16 65/41 92 Nasal Cannula* 4 36 06/22/24 17:05 94.5 116 14 62/50 98 Nasal Cannula 2.0 LABS: Hematology Labs: Test 06/22/24 17:36 Range/Units White Blood Count 26.3 H 4.8-10.8 K/uL Red Blood Count 4.08 4.00-5.50 MIL/uL Hemoglobin 12.1 12.0-16.0 g/dL Hematocrit 36.6 36-48 % Mean Corpuscular Volume 89.7 79-99 fL Mean Corpuscular Hemoglobin 29.7 27.0-33.0 pg Mean Corpuscular Hemoglobin Concent 33.1 32.0-36.0 g/dL Red Cell Distribution Width 15.5 11.0-15.5 % Platelet Count 534 H 130-400 K/uL Mean Platelet Volume 8.5 7.5-10.5 fL Immature Granulocyte % (Auto) 1.8 H 0-1 % Neutrophils (%) (Auto) 92.0 H 40.0-77.0 % Lymphocytes (%) (Auto) 4.4 L 21.0-51.0 % Monocytes (%) (Auto) 0.9 L 3.0-13.0 % Eosinophils (%) (Auto) 0.2 0.0-8.0 % Basophils (%) (Auto) 0.7 0.0-5.0 % Neutrophils # (Auto) 24.2 H 1.8-7.7 K/uL Lymphocytes # (Auto) 1.2 1.0-4.8 K/uL Monocytes # (Auto) 0.2 0.1-1.0 K/uL Eosinophils # (Auto) 0.04 0.00-0.70 K/uL Basophils # (Auto) 0.19 0.00-0.20 K/uL Absolute Immature Granulocyte (auto 0.47 0-1 K/uL Segmented Neutrophils % 24 L 40-70 % Band Neutrophils % 73 H 0-2 % Lymphocytes % (Manual) 3 L 22-44 % Nucleated Red Blood Cells 0.0 0.0-0.19 % Differential Comment MANUAL DIFFERENTIAL White Cell Morphology Comment Platelet Morphology Comment Red Blood Cell Morphology See comments Chemistry Labs: Test 06/22/24 17:36 Range/Units Sodium Level 135 L 136-145 mmol/L Potassium Level 3.6 3.5-5.1 mmol/L Chloride Level 101 101-111 mmol/L Carbon Dioxide Level 21 21-32 mmol/L Blood Urea Nitrogen 22 H 7-18 mg/dL Creatinine 1.6 H 0.5-1.0 mg/dL Glomerular Filtration Rate Calc 34 >90 mL/min Random Glucose 69 L 70-105 mg/dL Lactic Acid Level 6.7 H 0.8-2.5 mmol/L Total Calcium 9.0 8.5-10.1 mg/dL Total Creatine Kinase 43 # 21-232 U/L Troponin I High Sensitivity 5 4-50 ng/L B-Type Natriuretic Peptide 119 H 0-100 pg/mL DIAGNOSTICS / RADIOLOGY RESULTS: INDICATION: pICC line placement TECHNIQUE: CHEST 1VW COMPARISON: 06/22/2024 FINDINGS AND IMPRESSION: Right PICC line terminating in the SVC. The remainder of the study is stable. Mild degenerative changes of the spine. The visualized upper abdomen appears unremarkable. PLAN NEURO: Minimize central acting medications as possible. Fall Precautions. Well lighted room through the day and minimize interruptions through the night to prevent acute delirium. PULMONARY: Supplemental 02 as needed Titrate Fio2 to keep Spo2 > or = 90% DuoNebs and CPT as needed IS hourly while awake for pulmonary hygiene CARDIOVASCULAR: Follow hemodynamics. Titrate vasopressor to keep MAP >65 or systolic blood pressure >95mmHg DIPS: Levophed, Protonix LINES: Right upper arm PICC line GI & NUTRITION: NPO Aspirations precautions Prokinetic agents and laxatives as needed KIDNEYS & ELECTROLYTES: Strict monitoring of intake and output Daily weights Avoid nephrotoxic agents Monitor electrolytes and replace as needed Goal urine output of 30mL/hr or 0.5mL/kg/hr ENDOCRINE: Maintain blood glucose between 100-180 at all times. Insulin sliding scale for blood glucose management INFECTIOUS DISEASE: Trend temperature. Clarke-culture if febrile. Micro: [ ] Antibiotics: Cefepime HEMATOLOGY & COAGULATION: Monitor H&H. Keep Hgb > 7 Transfuse 1 unit of PRBC for Hgb < 7 Transfuse 1 pack of platelets of platelets < 20, 000 Watch for any signs and symptoms of bleeding SKIN: Pressure ulcer prevention per facility protocol Rehab: PT/OT Prophylaxis: GI: PPI drip DVT: Bilateral SCDs Code Status: Full Resuscitation Disposition: ICU Other: Total patient care time exceeds 35 minutes excluding all procedures. Supervising physician: VANI Aguilar APRN Jun 22, 2024 20:00
--- NOTE | 2024-06-22 20:00 | NUR ---
CRITICAL CARE CONSULT DONE AT THIS TIME; KISS MACHINE OPERATOR VISHNUOG VANI NOTIFIED OF PATIENT CONDITION
--- NOTE | 2024-06-22 20:07 | HMCIMG ---
INDICATION: pICC line placement TECHNIQUE: CHEST 1VW COMPARISON: 06/22/2024 FINDINGS AND IMPRESSION: Right PICC line terminating in the SVC. The remainder of the study is stable. Mild degenerative changes of the spine. The visualized upper abdomen appears unremarkable.
[2024-06-22] MEDS: NOREPINEPHRIN 4MG/NS 250ML 250 ML IV SCH (20:15)
[2024-06-22 20:16] LABS: ABG BASE EXCESS -5.5 mmol/L (-2.0-3.0); ABG HCO3 18.7 mmol/L (21.0-28.0); ABG OXYGEN SATURATION 98.5 % (94.0-98.0); ABG PCO2 33 mmHg (32-45); ABG PH 7.377 (7.350-7.450); CARBON MONOXIDE 0.3 % (0.5-1.5); DEVICE COMMENT LR JOSERN; HHb 1.5; PO2, ARTERIAL BG 135.4 mmHg (83.0-108.0); VENT MODE, BG 4LGNC (ROOM AIR)
[2024-06-22] MEDS: LACTATED RINGERS 1000ML 2,000 ML IV ONE (20:16)
[2024-06-22 20:20] LABS: APPEARANCE,URINE CLOUDY (CLEAR); BILIRUBIN,URINE NEGATIVE (NEGATIVE); COLOR,URINE YELLOW (YELLOW); GLUCOSE, URINE (UA) NEGATIVE (NEGATIVE); KETONES,URINE NEGATIVE (NEGATIVE); LEUKOCYTE ESTERASE ,URINE 25 Leu/uL (NEGATIVE); NITRATE,URINE 1+ (NEGATIVE); OCCULT BLOOD,URINE NEGATIVE (NEGATIVE); PROTEIN,URINE 20 mg/dL (NEGATIVE); UROBILINOGEN,URINE 0.2 mg/dL (0.2-1.0)
[2024-06-22 20:21] LABS: BACTERIA,URINE RARE /HPF (None Seen); MUCUS,URINE FEW LPF (None Seen); OTHER CASTS, URINE 2 /LPF (None Seen); SQUAMOUS EPITHELIAL CELL,UR RARE /HPF (0-2)
[2024-06-22] MEDS ORDERED: ondanSETRON 4MG INJ IV PRN (20:30)
[2024-06-22] MEDS ORDERED: morPHINE 2 MG SYG IVP PRN (20:30)
[2024-06-22] MEDS ORDERED: acetaMINOPHEN 650 MG SUPPOSITORY RC PRN (20:30)
[2024-06-22] MEDS: LACTATED RINGERS IV ONE (20:46)
[2024-06-22] MEDS ORDERED: HEParin 5,000 UNIT VIAL SQ SCH (21:00)
[2024-06-22] MEDS: INSULIN humuLIN R 100 UNIT/ML 3ML SQ SCH (21:00)
[2024-06-22] MEDS: PoTASSium chloRIDE 20MEQ/100ML 100 ML IV ONE (21:06)
[2024-06-22] MEDS: VASOpressin 20 UNITS/ML 1ML VIAL ONE (21:19)
[2024-06-22] MEDS: VASOpressin 20 UNITS/ML 1ML Vi 20 UNITS in 0.9%NACL 100ML 100 ML IV SCH (21:22)
--- NOTE | 2024-06-22 21:54 | HMCIMG ---
CT ABDOMEN/PELVIS W/O CONTRAST INDICATION: vomiting TECHNIQUE: CT ABDOMEN/PELVIS W/O CONTRAST. Oral contrast was not given. Coronal and sagittal reformats were performed. CT was performed with one or more of the following dose reduction techniques: Automated exposure control, adjustment of the mA and/or kV according to the patient's size, or use of the iterative reconstruction technique. Comparison: 06/09/2024 FINDINGS: The noncontrast nature this study limits evaluation of abdominal viscera. Small right pleural effusion is seen with bilateral lower lobe atelectasis versus early infection. Trace of left effusion is noted. There is hepatic steatosis. Cholecystectomy changes are noted. Stable appearance of the spleen, pancreas and adrenal glands. There is no hydronephrosis. Evaluation of the pelvis is markedly degraded due to streak artifact from the bilateral hip prosthesis. Large amount of free abdominal air is seen concerning for bowel perforation. Surgical consultation is recommended. Prominent fluid-filled loops of small bowel are noted which may represent ileus versus obstruction. Transition point is not definitely identified. There is mild constipation. Vascular calcifications are noted. Appendix is not clearly visualized limiting evaluation. Correlate clinically. Atherosclerotic changes of the aorta with calcified plaques. Degenerative changes of the spine are seen. Postop changes of posterior fusion seen at L4-L5. There is diffuse soft tissue anasarca. IMPRESSION: 1. Large amount of free abdominal air is seen concerning for bowel perforation. Surgical consultation is recommended. 2. Prominent fluid-filled loops of small bowel are noted which may represent ileus versus obstruction. Transition point is not definitely identified. 3. There is mild constipation. Additional findings as described above.
[2024-06-22] MEDS: LACTATED RINGERS 1000ML 1,000 ML IV SCH (22:01)
[2024-06-22] MEDS: LACTATED RINGERS 1000ML IV ONE (22:01)
[2024-06-22] MEDS: ceFEPime HCL 2 GM VIAL IVPB SCH (22:03)
--- NOTE | 2024-06-22 22:24 | NUR ---
ETTREME EXCORIATION AND ULCERATION TO SACRAL REGION
[2024-06-22 22:50] LABS: SARS-CoV-2, RNA, NAAT NEGATIVE SARS CoV-2 (NEGATIVE)
--- NOTE | 2024-06-22 22:53 | NUR ---
PERMISSIOIN GIVEN BY PT TO CALL AND NOTIFY OF SURGICAL PROCEEDURE
--- NOTE | 2024-06-22 22:54 | NUR ---
STAT GENERAL SX CONSULT DONE AT THIS TIME. PER DR RAYA, PATIENT TO GO TO SX.
[2024-06-22 22:56] LABS: INFLUENZA TYPE A Negative For Type A (NEGATIVE); INFLUENZA TYPE B Negative For Type B (NEGATIVE)
--- NOTE | 2024-06-22 22:57 | NUR ---
NOTIFIED ELIO ENGEL OF PEND SURGICAL INTERVENTION AND ADVISED WILL BE CHECKING ON HER IN THE MORNING
[2024-06-22] MEDS: SODIUM CHLORIDE 3% FOR INHALATION 4 ML/AMP VIAL.NEB IH ONE (22:59)
[2024-06-22] MEDS: SODIUM BICARB 50MEQ 50ML VIAL IV ONE (23:00)
--- NOTE | 2024-06-22 23:39 | NUR ---
DR RAYA AT BEDSIDE TO EVALUATE PATIENT
--- NOTE | 2024-06-22 23:49 | NUR ---
OR HERE FOR PATIENT.
[2024-06-22] MEDS ORDERED: ketaMINE 50MG/ML SYRINGE 50 MG/ML DISP.SYRIN ONE (23:59)
[2024-06-23] VITALS (75 sets, daily range): BP systolic 1–176; BP diastolic 0–168; PULSE 95–164; RESP 14–35; TEMP 94.4–98.4; O2SAT 96–100
[2024-06-23] MEDS: ALBUMIN (HUMAN) 25% 100 ML IV SCH
[2024-06-23] MEDS: ceFAZolin SODIUM 1 GM VIAL ONE
[2024-06-23] MEDS ORDERED: LIDOCAINE PF 100MG/5ML (2%) SYRINGE 5ML ONE (00:01)
[2024-06-23] MEDS ORDERED: FENTanyl CITRate PF 50 MCG/1 ML 2ML VIAL ONE (00:02)
[2024-06-23] MEDS ORDERED: rocuRONium bROMide 10MG/1ML 5ML VL ONE (00:02)
[2024-06-23] MEDS ORDERED: MIDAZOLAM HCL 1 MG/ML 2ML VIAL ONE (00:03)
--- NOTE | 2024-06-23 00:03 | NUR ---
REPORT GIVEN TO CCU; INGE NOTIFIED OF PATIENT GOING TO OR
--- NOTE | 2024-06-23 00:03 | CONS ---
GENERAL SURGERY CONSULTATION NOTE DATE OF CONSULTATION: Jun 23, 2024 TIME OF CONSULTATION: 00:00 CONSULTING SERVICE: Elsa Soria MD REQUESTING PHYSICAIN: [ ] REASON FOR CONSULTATION: [ ] 73-year-old lady who presented with abdominal pain Patient is well known to me she has been in and out of the hospital with abdominal pain and partial bowel obstruction At some point over had surgery for exploration and she declined she has been doing fairly okay until she started having abdominal pain two days ago associated with distention nausea and vomiting She denied any diarrhea or constipation No bloody bowel Past Past History Past Medical History Past Medical History: Anemia, Anxiety, Diabetes-Type II, Fibromyalgia, GERD, GI Bleed, High Cholesterol Medical History Other: THYROID PROBLEMS, GI BLEED, BLOOD Tx, HYPOXIA, DYSPHAGIA, HEMATURIA Past Surgical History: Unknown Surgical History Other: HIP FX'S W/REPAIRS X 3 medical history Medications See list Allergies See list HISTORY OF PRESENT ILLNESS: [ ] PAST MEDICAL HISTORY: [ ] PAST SURGICAL HISTORY: [ ] FAMILY HISTORY: [ ] SOCIAL HISTORY: [ ] Current Medications Medications (Trade) Dose Ordered Sig/Dionisio Route Start Time Stop Time Status Last Admin Dose Admin Albumin Human 100 ml @ 0 mls/hr Q6H6 IV 06/23/24 00:00 06/23/24 18:01 Cefepime HCl (MAXipime 2 gm vial) 2 gm Q12H IVPB 06/22/24 21:00 07/02/24 20:59 06/22/24 22:03 2 GM Heparin Sodium (Porcine) (HEParin 5,000 UNIT VIAL) 5,000 unit BID SQ 06/22/24 21:00 06/22/24 20:48 DC Insulin Human Regular (humuLIN R 100 UNIT/ML 3ML) INSULIN SLIDING SCAL... ACHS SQ 06/22/24 21:00 07/22/24 20:59 Lactated Ringer's 1,000 ml @ 125 mls/hr Q8H IV 06/22/24 20:30 07/22/24 20:29 06/22/24 22:01 125 MLS/HR Norepinephrine 250 ml @ 0 mls/hr PROTOCOL IV 06/22/24 19:30 07/22/24 19:29 06/22/24 20:15 45 MLS/HR Pantoprazole Sodium (PROTonix 40MG INJ) 40 mg DAILY IV 06/23/24 09:00 07/23/24 08:59 Vasopressin 20 units/Sodium Chloride 100 ml @ 0 mls/hr PROTOCOL IV 06/22/24 20:30 07/22/24 20:29 06/22/24 21:22 9 MLS/HR Allergies: Coded Allergies: butorphanol (Unverified Allergy, Intermediate, 04/06/24) Penicillins (Verified Allergy, Unknown, 07/17/16) levofloxacin (Unverified Allergy, Unknown, 04/08/24) pregabalin (Unverified Allergy, Unknown, 07/17/16) vancomycin (Verified Allergy, Unknown, 07/17/16) Uncoded Allergies: PCN (Allergy, Mild, 11/22/11) VANCO (Allergy, Unknown, 07/17/16) REVIEW OF SYSTEMS: AIR BRAKE RIGGER: [Denies headaches or blurring of vision.] RESP: [No cough, chest pain or SOB.] CVS: [No palpitaions.] GI: [abdominal pain with nausea and vomiting, no diarrhea or constipation.] QUINTIN: [No dysuria or hematuria.] Musculoskeletal: [No swelling or joint pain.] BACK: [No pain or swelling.] All other systems are reviewed and essentially negative pertinent positives in HPI. PHYSICAL EXAMINATION: GENERAL: [Patient is lying comfortably in bed, not in any obvious distress.] HEAD: [Normal with no signs of head trauma.] EYES: [Not pale not jaundiced afebrile to touch.] ENT: [ Normal.] NECK: [Supple,no tenderness,no lymphadenopathy,no masses,no thyromegaly ,no bruits, no JVD.] LUNGS: [Clear breath sounds bilaterally. No wheezes, rales, or rhonchi.] HEART: [Regular rate and rhythm. Normal S1 and S2, without murmurs, rub or gallop.] VASC: [No edema. Peripheral pulses normal and equal in all extremities.] ABD: [Bowel sounds present, distended generalized tenderness guarding rebound tenderness, no masses, no organomegaly.] : [Normal, no suprapubic tenderness.] LYMPH: [No lymphadenopathy noted.] EXT: [ Warm soft, non tender.] SKIN: [ No rashes or lesions.] NEURO: [ Awake Alert and oriented x3.] Vital Signs (last 8hr) Date Time Temp Pulse Resp B/P (MAP) Pulse Ox O2 Delivery O2 Flow Rate FiO2 06/22/24 23:10 101 18 112/48 96 Nasal Cannula* 4 36 06/22/24 22:28 93 14 100/51 98 Nasal Cannula* 4 36 06/22/24 22:13 98.2 82 18 105/64 98 Nasal Cannula* 4 36 06/22/24 22:00 98 20 88/52 99 Nasal Cannula* 4 36 06/22/24 21:30 101 20 94/48 98 Nasal Cannula* 4 36 06/22/24 20:40 97.9 96 15 89/44 99 Nasal Cannula* 4 36 06/22/24 18:59 97.7 103 16 84/50 96 Nasal Cannula* 4 36 06/22/24 18:30 97.7 113 16 65/41 92 Nasal Cannula* 4 36 06/22/24 17:05 94.5 116 14 62/50 98 Nasal Cannula 2.0 LABORATORY: [ ] Hematology Labs: Test 06/22/24 17:36 Range/Units White Blood Count 26.3 H 4.8-10.8 K/uL Red Blood Count 4.08 4.00-5.50 MIL/uL Hemoglobin 12.1 12.0-16.0 g/dL Hematocrit 36.6 36-48 % Mean Corpuscular Volume 89.7 79-99 fL Mean Corpuscular Hemoglobin 29.7 27.0-33.0 pg Mean Corpuscular Hemoglobin Concent 33.1 32.0-36.0 g/dL Red Cell Distribution Width 15.5 11.0-15.5 % Platelet Count 534 H 130-400 K/uL Mean Platelet Volume 8.5 7.5-10.5 fL Immature Granulocyte % (Auto) 1.8 H 0-1 % Neutrophils (%) (Auto) 92.0 H 40.0-77.0 % Lymphocytes (%) (Auto) 4.4 L 21.0-51.0 % Monocytes (%) (Auto) 0.9 L 3.0-13.0 % Eosinophils (%) (Auto) 0.2 0.0-8.0 % Basophils (%) (Auto) 0.7 0.0-5.0 % Neutrophils # (Auto) 24.2 H 1.8-7.7 K/uL Lymphocytes # (Auto) 1.2 1.0-4.8 K/uL Monocytes # (Auto) 0.2 0.1-1.0 K/uL Eosinophils # (Auto) 0.04 0.00-0.70 K/uL Basophils # (Auto) 0.19 0.00-0.20 K/uL Absolute Immature Granulocyte (auto 0.47 0-1 K/uL Segmented Neutrophils % 24 L 40-70 % Band Neutrophils % 73 H 0-2 % Lymphocytes % (Manual) 3 L 22-44 % Nucleated Red Blood Cells 0.0 0.0-0.19 % Differential Comment MANUAL DIFFERENTIAL White Cell Morphology Comment Platelet Morphology Comment Red Blood Cell Morphology See comments Chemistry Labs: Test 06/22/24 21:21 06/22/24 17:36 Range/Units Lactic Acid Level 7.7 H 0.8-2.5 mmol/L Sodium Level 135 L 136-145 mmol/L Potassium Level 3.6 3.5-5.1 mmol/L Chloride Level 101 101-111 mmol/L Carbon Dioxide Level 21 21-32 mmol/L Blood Urea Nitrogen 22 H 7-18 mg/dL Creatinine 1.6 H 0.5-1.0 mg/dL Glomerular Filtration Rate Calc 34 >90 mL/min Random Glucose 69 L 70-105 mg/dL Total Calcium 9.0 8.5-10.1 mg/dL Total Creatine Kinase 43 # 21-232 U/L Troponin I High Sensitivity 5 4-50 ng/L B-Type Natriuretic Peptide 119 H 0-100 pg/mL Procalcitonin 6.63 H 0.05-0.5 ng/mL DIAGNOSTICS / RADIOLOGY: [Copy/Paste Echos/Imaging Report here] ASSESSMENT: [] Acute abdomen Perforated bowel Recurrent SBO Multiple abdominal surgeries Umbilical/incisional hernia PLAN: [] NPO/IVF/IV ANTIOBIOTICS Schedule for OR We talked about various treatment options including but not limited to surgery. We talked about risks and benefits of surgery, patient verbalized understanding has agreed to proceed [ ]. We will schedule [ exploratory laparotomy possible bowel resection possible ostomy and any indicated procedures.]. ELSA SORIA MD Jun 23, 2024 00:03
[2024-06-23] MEDS ORDERED: phenylEPHRINE HCL 10 MG/ML 1ML VIAL IV ONE (00:25)
[2024-06-23] MEDS ORDERED: ceFAZolin SODIUM 1 GM VIAL ONE (01:32)
[2024-06-23 03:30] LABS: ABG BASE EXCESS -7.1 mmol/L (-2.0-3.0); ABG HCO3 17.1 mmol/L (21.0-28.0); ABG OXYGEN SATURATION 98.8 % (94.0-98.0); ABG PCO2 30 mmHg (32-45); CARBON MONOXIDE 0.3 % (0.5-1.5); HHb 1.2; PO2, ARTERIAL BG 222.1 mmHg (83.0-108.0); VENT MODE, BG AC VC (ROOM AIR)
[2024-06-23] MEDS ORDERED: ondanSETRON 4MG INJ IVP PRN (03:30)
[2024-06-23] MEDS ORDERED: 0.9%NACL 50ML IV SCH (03:30)
[2024-06-23] MEDS ORDERED: hydroMORPHone 1 MG INJ IVP PRN (03:30)
[2024-06-23] MEDS ORDERED: ZOSYN 3.375GM +NS 50ML IVPB SCH (03:30)
[2024-06-23] MEDS ORDERED: ketOROlac 15MG/ML VIAL (15MG/ML) IV PRN (03:30)
[2024-06-23] MEDS ORDERED: acetaMINOPHEN 325 MG TAB PO PRN (03:30)
[2024-06-23 03:54] LABS: BASOPHILS # (AUTO) 0.03 K/uL (0.00-0.20); BASOPHILS % (AUTO) 0.1 % (0.0-5.0); EOSINOPHILS # (AUTO) 0.03 K/uL (0.00-0.70); EOSINOPHILS % (AUTO) 0.1 % (0.0-8.0); HEMATOCRIT 29.6 % (36-48); IMMATURE GRANULOCYTE ABSOLUTE 1.89 K/uL (0-1); LYMPHOCYTES # (AUTO) 1.8 K/uL (1.0-4.8); LYMPHOCYTES % (AUTO) 4.8 % (21.0-51.0); MEAN CORPUSCULAR HEMOGLOBIN 29.8 pg (27.0-33.0); MEAN CORPUSCULAR HGB CONC 34.1 g/dL (32.0-36.0); MEAN CORPUSCULAR VOLUME 87.3 fL (79-99); MONOCYTES # (AUTO) 0.4 K/uL (0.1-1.0); MONOCYTES % (AUTO) 0.9 % (3.0-13.0); NEUTROPHILS # (AUTO) 33.3 K/uL (1.8-7.7); NUCLEATED RED BLOOD CELLS 0.1 % (0.0-0.19); PLATELET COUNT (AUTO) 575 K/uL (130-400); RED BLOOD CELL COUNT(AUTO) 3.39 MIL/uL (4.00-5.50); RED CELL DISTRIBUTION WIDTH 15.4 % (11.0-15.5)
[2024-06-23 03:56] LABS: WHITE BLOOD COUNT (AUTO) 37.4 K/uL (4.8-10.8)
[2024-06-23] MEDS: DEXTROSE 50%-WATER 50 ML DISP.SYRIN IV ONE ×3 (04:03→12:31)
[2024-06-23] MEDS: proPOFol 1000 MG/100 ML IV PRN (04:06)
[2024-06-23 04:14] LABS: HEMOGLOBIN A1C 5.3 % (4.0-6.0)
[2024-06-23] MEDS: fluCONazole 200 MG/NS 100 ML IVPB SCH (04:17)
[2024-06-23 04:18] LABS: ALBUMIN 1.1 g/dL (3.5-5.0); BILIRUBIN,TOTAL 0.2 mg/dL (0.2-1.0); CREATININE 1.7 mg/dL (0.5-1.0); PHOSPHORUS 2.1 mg/dL (2.5-4.9); POTASSIUM 3.1 mmol/L (3.5-5.1); THYROID STIMULATING HORMONE 16.61 uIU/mL (0.36-3.74); TOTAL PROTEIN, SERUM 3.3 g/dL (6.0-8.3)
[2024-06-23 04:24] LABS: MAGNESIUM 0.9 mg/dL (1.80-2.40)
[2024-06-23] MEDS: MAGNESIUM 2GM PREMIX 50ML 50 ML IV SCH (04:33)
[2024-06-23] MEDS: PoTASSium chloRIDE 20MEQ/100ML 100 ML IV ONE ×2 (04:55→07:24)
[2024-06-23] MEDS ORDERED: LACTATED RINGERS 1000ML IV SCH (05:30)
[2024-06-23] MEDS ORDERED: MAGNESIUM 4GM PREMIX 100ML IV SCH (05:30)
--- NOTE | 2024-06-23 06:36 | EKG ---
[facility] Test Date: 2024-06-22 Test Time: 17:31:25 Pat Name: JOSÉ MIGUEL OSORIO Department: [facility] Room: 218 1 Gender: F Senior Data Analyst: [id number] : 1950 Requested By: BRAYDON ANDRE Order Number: [id number] Reading MD: Buck Christensen Measurements Intervals [place] Rate: 111 P: 26 NM: 138 QRS: 22 QRSD: 76 T: 160 QT: 274 QTc: 373 Interpretive Statements Sinus tachycardia Nonspecific T abnrm, anterolateral leads Compared to ECG 05/23/2024 09:07:30 T-wave abnormality no longer present Electronically Signed On 06-24-2024 12:44:19 WELCOME WAGON HOST/HOSTESS by Buck Christensen Please click the below link to view image of tracing.
[2024-06-23] MEDS: NOREPINEPHRINE BITARTRATE 32 MG in 0.9% NACL 250ML 250 ML IV STA (07:22)
[2024-06-23] MEDS: SODIUM BICARB 50MEQ 50ML VIAL IV ONE ×3 (07:23→11:05)
--- NOTE | 2024-06-23 07:37 | NUR ---
DR INIGUEZ MADE AWARE OF CONSULT AND TJ ALSO MADE AWARE OF ADMISSION.
--- NOTE | 2024-06-23 07:48 | NUR ---
TJ IN TO SEE PT UNABLE TO GET AN ARTERIAL LINE IN. CN MADE AWARE. AND ASKED ANESTHESIOLOGIST TO PLACE ARTERIAL LINE.
--- NOTE | 2024-06-23 08:15 | NUR ---
TJ GARCIA NP, SPOKE TO ELIO OSORIO AND UPDATED ON STATUS. AGREES TO DNR. PHONE CONSENT OBTAIN BY ME AND JOSE MATOS
[2024-06-23] MEDS: MIDAZOLAM 100MG-0.9% NS 100ML 100ML BAG IV ONE (08:46)
[2024-06-23] MEDS: FENTanyl 1000MCG+NS 100ML 100 ML IV SCH (08:48)
[2024-06-23] MEDS ORDERED: MIDAZOLAM 100MG-0.9% NS 100ML 100ML BAG IV ONE (09:00)
[2024-06-23] MEDS ORDERED: PANTOPrazole 40 MG/VIAL IV SCH (09:00)
--- NOTE | 2024-06-23 09:27 | EKG ---
[facility] Test Date: 2024-06-23 Test Time: 08:51:33 Pat Name: JOSÉ MIGUEL OSORIO Department: [facility] Room: 218 1 Gender: F Film Producer: NURSE : 1950 Requested By: JOSE SPENCER Order Number: [id number] Reading MD: Buck Christensen Measurements Intervals [place] Rate: 160 P: 73 NC: 118 QRS: 53 QRSD: 70 T: 78 QT: 238 QTc: 388 Interpretive Statements Sinus tachycardia Nonspecific T wave abnormality Compared to ECG 06/22/2024 17:31:25 T-wave abnormality now present Electronically Signed On 06-24-2024 12:47:02 CAR RENTAL SERVICE ATTENDANT by Buck Christensen Please click the below link to view image of tracing.
[2024-06-23 10:22] LABS: ABG BASE EXCESS -16.1 mmol/L (-2.0-3.0); ABG HCO3 9.5 mmol/L (21.0-28.0); ABG OXYGEN SATURATION 98.4 % (94.0-98.0); ABG PCO2 23 mmHg (32-45); ABG PH 7.244 (7.350-7.450); CARBON MONOXIDE 0.3 % (0.5-1.5); HHb 1.6; PO2, ARTERIAL BG 169.3 mmHg (83.0-108.0); VENT MODE, BG AC (ROOM AIR)
--- NOTE | 2024-06-23 10:34 | PN ---
GENERAL SURGERY PROGRESS NOTE DATE OF SERVICE: Jun 23, 2024 TIME OF SERVICE: 10:32 Intubated Started PROBLEM LISTS: [ ] Perforated bowel SBO INTERVAL HISTORY: [ ] PHYSICAL EXAMINATION: GENERAL: [Patient is lying in bed, intubated and sedated HEAD: [Normal with no signs of head trauma.] EYES: [Not pale not jaundiced afebrile to touch.] ENT: [ Normal.] NECK: [Supple,no tenderness,no lymphadenopathy,no masses,no thyromegaly ,no bruits, no JVD.] LUNGS: [Clear breath sounds bilaterally. No wheezes, rales, or rhonchi.] HEART: [Regular rate and rhythm. Normal S1 and S2, without murmurs, rub or gallop.] ABD: [Wound VAC in place : [Normal, no suprapubic tenderness.] LYMPH: [No lymphadenopathy noted.] EXT: [ Swollen extremities SKIN: [ No rashes or lesions.] NEURO: Intubated and sedated LABORATORY: [ ] Hematology Labs: Test 06/23/24 03:30 06/22/24 17:36 Range/Units White Blood Count 37.4 #*H 4.8-10.8 K/uL Red Blood Count 3.39 L 4.00-5.50 MIL/uL Hemoglobin 10.1 L 12.0-16.0 g/dL Hematocrit 29.6 L 36-48 % Mean Corpuscular Volume 87.3 79-99 fL Mean Corpuscular Hemoglobin 29.8 27.0-33.0 pg Mean Corpuscular Hemoglobin Concent 34.1 32.0-36.0 g/dL Red Cell Distribution Width 15.4 11.0-15.5 % Platelet Count 575 H 130-400 K/uL Mean Platelet Volume 8.6 7.5-10.5 fL Immature Granulocyte % (Auto) 5.1 H 0-1 % Neutrophils (%) (Auto) 89.0 H 40.0-77.0 % Lymphocytes (%) (Auto) 4.8 L 21.0-51.0 % Monocytes (%) (Auto) 0.9 L 3.0-13.0 % Eosinophils (%) (Auto) 0.1 0.0-8.0 % Basophils (%) (Auto) 0.1 0.0-5.0 % Neutrophils # (Auto) 33.3 H 1.8-7.7 K/uL Lymphocytes # (Auto) 1.8 1.0-4.8 K/uL Monocytes # (Auto) 0.4 0.1-1.0 K/uL Eosinophils # (Auto) 0.03 0.00-0.70 K/uL Basophils # (Auto) 0.03 0.00-0.20 K/uL Absolute Immature Granulocyte (auto 1.89 H 0-1 K/uL Nucleated Red Blood Cells 0.1 0.0-0.19 % White Cell Morphology Comment See comments Segmented Neutrophils % 24 L 40-70 % Band Neutrophils % 73 H 0-2 % Lymphocytes % (Manual) 3 L 22-44 % Differential Comment MANUAL DIFFERENTIAL Platelet Morphology Comment Red Blood Cell Morphology See comments Chemistry Labs: Test 06/23/24 10:17 06/23/24 03:40 06/23/24 03:30 06/22/24 17:36 Range/Units Lactic Acid Level 8.6 H 0.8-2.5 mmol/L Whole Blood Glucose 153 #H 70-110 MG/DL Sodium Level 135 L 136-145 mmol/L Potassium Level 3.1 L 3.5-5.1 mmol/L Chloride Level 105 101-111 mmol/L Carbon Dioxide Level 18 L 21-32 mmol/L Blood Urea Nitrogen 23 H 7-18 mg/dL Creatinine 1.7 H 0.5-1.0 mg/dL Glomerular Filtration Rate Calc 31 >90 mL/min Random Glucose 223 #H 70-105 mg/dL Hemoglobin A1c 5.3 4.0-6.0 % Estimated Average Glucose (eAG) 105 70-126 mg/dL Total Calcium 8.3 L 8.5-10.1 mg/dL Phosphorus Level 2.1 L 2.5-4.9 mg/dL Magnesium Level 0.90 *L 1.80-2.40 mg/dL Total Bilirubin 0.2 0.2-1.0 mg/dL Aspartate Amino Transf (AST/SGOT) 21 10-37 U/L Alanine Aminotransferase (ALT/SGPT) 9 L 12-78 U/L Alkaline Phosphatase 99 50-136 U/L Total Protein 3.3 L 6.0-8.3 g/dL Albumin 1.1 L 3.5-5.0 g/dL Thyroid Stimulating Hormone (TSH) 16.61 #H 0.36-3.74 uIU/mL Total Creatine Kinase 43 # 21-232 U/L Troponin I High Sensitivity 5 4-50 ng/L B-Type Natriuretic Peptide 119 H 0-100 pg/mL Procalcitonin 6.63 H 0.05-0.5 ng/mL DIAGNOSTICS / RADIOLOGY: [Copy/Paste Echos/Imaging Report here] ASSESSMENT: [] Acute abdomen Perforated bowel Recurrent SBO Multiple abdominal surgeries Umbilical/incisional hernia S/p exploratory laparotomy PLAN: [] Aggressive resuscitation NPO/IVF/IV ANTIOBIOTICS Labs in ELSA Tamez MD Jun 23, 2024 10:34
[2024-06-23 10:47] LABS: CREATININE 1.9 mg/dL (0.5-1.0); MAGNESIUM 1.5 mg/dL (1.80-2.40); POTASSIUM 3.9 mmol/L (3.5-5.1)
--- NOTE | 2024-06-23 10:56 | NUR ---
DCP Attempted interview. Patient is intubated and sedated. TUBERCULOSIS SPECIALIST was placing an A-Line at bedside. Per TRUDI Womack states Michael Saldaña, Spouse [phone] was called in the morning and consented for patient to be DNR. Patient coded in the morning. Surgeon Dr. Oswald assessed patient. No family at bedside at this time. Notified social media analyst and CM. Addendum: 06/23/24 at 1104 by JAKI ALBERT RN CM Amended: Links added.
[2024-06-23] MEDS: hydroCORTisone SOD SUCCINATE 100 MG/2 ML VIAL IV SCH (11:21)
[2024-06-23] MEDS: PANTOPrazole 40 MG/VIAL IVP SCH (11:21)
[2024-06-23] MEDS: ENOXAPARIN SODIUM 30 MG/0.3 ML SQ SCH (11:22)
[2024-06-23] MEDS: ALBUMIN (HUMAN) 5% 250 ML IV SCH (11:36)
[2024-06-23] MEDS: furoSEMIDE 100MG VIAL 100 MG in 0.9%NACL 100ML 100 ML IV SCH (11:37)
--- NOTE | 2024-06-23 11:39 | PN ---
[facility] PROGRESS NOTE Date Patient Seen: Jun 23, 2024 Time of Visit: 11:39 Supervising Physician: Dr. Dias Consulting Physician: [facility] Outpatient Specialists: [ ] Inpatient Consults: [ ] PROBLEM LIST: Acute hypoxic Respiratory failure POA Acute encephalopathy, in the setting of severe sepsis POA Acute bowel perforation with subsequent peritonitis s/p exploratory laparotomy 06/23/24 Dr. Valenzuela POA Shock etiology sepsis POA Urinary tract infection, POA Acute kidney injury, POA Lactic acidosis, POA Chronic debility, POA DM type 2, POA GERD, POA History small-bowel obstruction History of fibromyalgia History of hypertension, now hypotensive in the setting of septic shock versus hemorrhagic shock INTERVAL HISTORY: 06/24/2023: At the time of my evaluation the patient was lying in bed. She was recently on exploratory laparotomy by Dr. Valenzuela and is critically ill appearing. The patient remains sedated on Diprivan, RASS score of -4. intubated and on mechanical ventilator support for respiratory management. Patient is currently on ACVC mode with FiO2 40%, total volume of 450, peep of 5 and rate of 14 Initially, on the monitor was unable to obtain a blood pressure reading. The patient was tachycardic in the 160. Chemistry panel showed a sodium of 140, potassium of 3.9, chloride 107, CO2 of 13, BUN 22, creatinine of 1.9, blood glucose of 52, Mag one 0.50 a lactic acid of 8.6. Patient has a cumulative balance of positive 269. CBC showed a WBC of 37.4, H&H 10.1/29.6 and a platelet count of 575. Patient currently on cefepime and fluconazole for antibiotic coverage. No other complaint. REVIEW OF SYSTEMS: Unable to obtain due to alteration in mental status PHYSICAL EXAM: GENERAL: Encephalopathic, looks pale HEENT: EOMI, Sclera non icteric, moist mucosa NECK: Supple, no JVD, trachea midline LUNGS: Diminished bibasilar air. No wheezes HEART: Sinus tach on the monitor. Normal S1 and S2, without murmurs ABD: Abdomen is distended and tender to palpate. Bowel sounds present EXT: No clubbing cyanosis or edema NEURO: Encephalopathic Vital Signs (last 8hr) Date Time Temp Pulse Resp B/P (MAP) Pulse Ox O2 Delivery O2 Flow Rate FiO2 06/23/24 10:26 30 06/23/24 09:30 146 40 06/23/24 07:22 107/82 06/23/24 07:15 94.6 142 19 136/88 (104) 06/23/24 07:01 135 19 107/82 (90) 06/23/24 07:00 135 20 06/23/24 06:32 118 40 06/23/24 05:27 100 Ventilator+ 40 LABS: Hematology Labs: Test 06/23/24 03:30 06/22/24 17:36 Range/Units White Blood Count 37.4 #*H 4.8-10.8 K/uL Red Blood Count 3.39 L 4.00-5.50 MIL/uL Hemoglobin 10.1 L 12.0-16.0 g/dL Hematocrit 29.6 L 36-48 % Mean Corpuscular Volume 87.3 79-99 fL Mean Corpuscular Hemoglobin 29.8 27.0-33.0 pg Mean Corpuscular Hemoglobin Concent 34.1 32.0-36.0 g/dL Red Cell Distribution Width 15.4 11.0-15.5 % Platelet Count 575 H 130-400 K/uL Mean Platelet Volume 8.6 7.5-10.5 fL Immature Granulocyte % (Auto) 5.1 H 0-1 % Neutrophils (%) (Auto) 89.0 H 40.0-77.0 % Lymphocytes (%) (Auto) 4.8 L 21.0-51.0 % Monocytes (%) (Auto) 0.9 L 3.0-13.0 % Eosinophils (%) (Auto) 0.1 0.0-8.0 % Basophils (%) (Auto) 0.1 0.0-5.0 % Neutrophils # (Auto) 33.3 H 1.8-7.7 K/uL Lymphocytes # (Auto) 1.8 1.0-4.8 K/uL Monocytes # (Auto) 0.4 0.1-1.0 K/uL Eosinophils # (Auto) 0.03 0.00-0.70 K/uL Basophils # (Auto) 0.03 0.00-0.20 K/uL Absolute Immature Granulocyte (auto 1.89 H 0-1 K/uL Nucleated Red Blood Cells 0.1 0.0-0.19 % White Cell Morphology Comment See comments Segmented Neutrophils % 24 L 40-70 % Band Neutrophils % 73 H 0-2 % Lymphocytes % (Manual) 3 L 22-44 % Differential Comment MANUAL DIFFERENTIAL Platelet Morphology Comment Red Blood Cell Morphology See comments Chemistry Labs: Test 06/23/24 10:17 06/23/24 03:40 06/23/24 03:30 06/22/24 17:36 Range/Units Sodium Level 140 136-145 mmol/L Potassium Level 3.9 3.5-5.1 mmol/L Chloride Level 107 101-111 mmol/L Carbon Dioxide Level 13 L 21-32 mmol/L Blood Urea Nitrogen 22 H 7-18 mg/dL Creatinine 1.9 H 0.5-1.0 mg/dL Glomerular Filtration Rate Calc 28 >90 mL/min Random Glucose 52 #L 70-105 mg/dL Lactic Acid Level 8.6 H 0.8-2.5 mmol/L Total Calcium 7.7 L 8.5-10.1 mg/dL Magnesium Level 1.50 L 1.80-2.40 mg/dL Whole Blood Glucose 153 #H 70-110 MG/DL Hemoglobin A1c 5.3 4.0-6.0 % Estimated Average Glucose (eAG) 105 70-126 mg/dL Phosphorus Level 2.1 L 2.5-4.9 mg/dL Total Bilirubin 0.2 0.2-1.0 mg/dL Aspartate Amino Transf (AST/SGOT) 21 10-37 U/L Alanine Aminotransferase (ALT/SGPT) 9 L 12-78 U/L Alkaline Phosphatase 99 50-136 U/L Total Protein 3.3 L 6.0-8.3 g/dL Albumin 1.1 L 3.5-5.0 g/dL Thyroid Stimulating Hormone (TSH) 16.61 #H 0.36-3.74 uIU/mL Total Creatine Kinase 43 # 21-232 U/L Troponin I High Sensitivity 5 4-50 ng/L B-Type Natriuretic Peptide 119 H 0-100 pg/mL Procalcitonin 6.63 H 0.05-0.5 ng/mL DIAGNOSTICS / RADIOLOGY RESULTS: [ ] PLAN 06/24/2023: I am going to attempts arterial for better hemodynamic monitoring, if unsuccessful we will request the assistance of anesthesia who attempted the A-line the OR this a.m. but was unsuccessful. Will order IV fluid bolus with IV LR, we will order bicarb pushes X 6 amps. then drip at 125 mL per hour, we will start the patient on hydrocortisone 50 mg IV q.6 hours we will adjust antibiotic therapy with ceftazidime, Zyvox, fluconazole. We will replace magnesium deficit. We will continue to monitor the lactic acid trend. We will any nephrotoxic agents. We will repeat labs, chest x-ray and ABG in the a.m. and once her condition is stabilized we will attempt to wean off the vent. We will monitor the patient's progress and response to management. We will continue to provide general supportive care, GI and DVT prophylaxis. Further orders per attending MD and hospital course. NEURO: Minimize central acting medications as possible. Fall Precautions. Well lighted room through the day and minimize interruptions through the night to prevent acute delirium. PULMONARY: Supplemental 02 as needed Titrate Fio2 to keep Spo2 > or = 90% DuoNebs and CPT as needed IS hourly while awake for pulmonary hygiene CARDIOVASCULAR: Follow hemodynamics. Titrate vasopressor to keep MAP >65 or systolic blood pressure >95mmHg DIPS: Levophed, Protonix LINES: Right upper arm PICC line GI & NUTRITION: NPO Aspirations precautions Prokinetic agents and laxatives as needed KIDNEYS & ELECTROLYTES: Strict monitoring of intake and output Daily weights Avoid nephrotoxic agents Monitor electrolytes and replace as needed Goal urine output of 30mL/hr or 0.5mL/kg/hr ENDOCRINE: Maintain blood glucose between 100-180 at all times. Insulin sliding scale for blood glucose management INFECTIOUS DISEASE: Trend temperature. Clarke-culture if febrile. Micro: [ ] Antibiotics: Cefepime HEMATOLOGY & COAGULATION: Monitor H&H. Keep Hgb > 7 Transfuse 1 unit of PRBC for Hgb < 7 Transfuse 1 pack of platelets of platelets < 20, 000 Watch for any signs and symptoms of bleeding SKIN: Pressure ulcer prevention per facility protocol Rehab: PT/OT Prophylaxis: GI: PPI drip DVT: Bilateral SCDs Code Status: Full Resuscitation Disposition: ICU Other: Total patient care time exceeds 35 minutes excluding all procedures. JOSE SPENCER NP Jun 23, 2024 11:39
[2024-06-23 12:25] LABS: ABG BASE EXCESS -3.7 mmol/L (-2.0-3.0); ABG HCO3 19.9 mmol/L (21.0-28.0); ABG OXYGEN SATURATION 97.8 % (94.0-98.0); ABG PCO2 31 mmHg (32-45); CARBON MONOXIDE 0.3 % (0.5-1.5); HHb 2.2; VENT MODE, BG AC (ROOM AIR)
[2024-06-23] MEDS: phenylEPHRINE HCL 100 MG in 0.9% NACL 250ML 250 ML IV SCH (13:00)
[2024-06-23] MEDS: SODIUM BICARB 8.4% 50ML SYRING 150 MEQ in DEXTROSE 5%-WATER 1,000 ML IVP SCH (13:13)
[2024-06-23] MEDS ORDERED: PHARMACY COMMUNICATION MISC SCH (14:00)
--- NOTE | 2024-06-23 14:10 | NUR ---
SECOND PICC LINE PLACED TO LEFT UPPER ARM, TRIPLE LUMEN.
[2024-06-23] MEDS ORDERED: COMPOUND IV REFRIGERATED 1 EACH IVSOLN MISC PRN (15:00)
--- NOTE | 2024-06-23 15:01 | NUR ---
[facility] Consult: Unable to assess at this time due to patient hemodynamically unstable at this time. Wound vac to abdomen in place and intact. Addendum: 06/23/24 at 1502 by FOX BATEMAN RN RN/CORONA Amended: Links added.
[2024-06-23] MEDS: metRONIDazole 500MG/100ML BAG 100 ML IVPB SCH (15:03)
[2024-06-23] MEDS: LINEZOLID 600 MG/ISO-OSM 300 ML IV SCH (15:07)
[2024-06-23] MEDS: M.V.I. IV [ADULT] 10 ML in CLINIMIX-E4.25%AA/D5+LYT2000ML 2,000 ML IV ONE (15:20)
--- NOTE | 2024-06-23 15:42 | HMCIMG ---
FRONTAL CHEST RADIOGRAPH INDICATION: PICC LINE PLACEMENT TO LEFT UPPER ARM COMPARISON: 06/22/2024 FINDINGS/IMPRESSION: clinical research monitor leads overlie the field of view. Tip of endotracheal tube located 3.0 cm above the amy and tip of NG tube within the stomach. Tip of left PICC within the SVC, and stable right PICC. Remainder of the study is unchanged.
[2024-06-23] MEDS: 0.9%NACL 1000ML 1,000 ML IV SCH (15:43)
--- NOTE | 2024-06-23 17:29 | PN ---
[facility] PROGRESS NOTE Date of Service: Jun 23, 2024 Time of Service: 17:16 SUBJECTIVE: Ms. Chandler is a 73-year-old female, with a past medical history of hypertension, hypothyroidism, DM, anemia, fibromyalgia, recurrent SpO2 is, chronic left hip pain, cervical CA presented to the ER with the complaints of sharp CBC left lower quadrant abdominal pain with nausea and vomiting since 2 days. Initial vitals blood pressure 62/50 which improved on Levophed. Initial labs WBCs 26.3, lactic acid 6.7. CT abdomen/pelvis resulted in Large amount of free abdominal air is seen concerning for bowel perforation. Surgery consult was obtained. 06/23/2024 postop patient is seen and examined at the bedside. She is sedated on Diprivan and intubated. She underwent exploratory laparotomy 06/23/24 Dr. Valenzuela for perforated small bowel and subsequent peritonitis this morning. Vitals blood pressure 104/58, heart rate 146 on phenylephrine and vasopressin. Labs WBC 37.4, BUN 2 , creatinine 1.7, magnesium 0.90, TSH 16.6. Lactic acid improved from 7.7- 5. Urinalysis positive for leukocyte esterase. Chest x-ray revealed prominent bilateral interstitial markings. REVIEW OF SYSTEMS: Not able to get a proper history as the patient is sedated CONSTITUTIONAL: Denies fevers, chills, or night sweats. No unintentional weight loss reported. NEUROLOGICAL: Denies headache, amaurosis fugax, motor weakness, sensory deficit, vertigo/spinning sensation, gait abnormalities, or tremors. ENT: No hearing loss, otalgia, otorrhea, rhinitis, rhinorrhea, hoarseness, or sore throat. CARDIOVASCULAR: Denies any exertional angina, dyspnea on exertion, orthopnea, paroxysmal nocturnal dyspnea, palpitations, life-threatening arrhythmias, claudication. PULMONARY: Denies any shortness of breath, cough, phlegm/sputum, hemoptysis, pleuritic chest pain. SLEEP: Denies morning headaches, daytime somnolence or napping. Denies difficulty falling asleep, staying asleep, waking from sleep. Denies knowledge of snoring. GASTROINTESTINAL: Denies any type of dysphagia to either liquids or solids. Denies nausea, vomiting, pyrosis, early satiety, abdominal pain, diarrhea, constipation, or changes in stool consistency or caliber. Denies coffee-ground emesis, hematemesis, hematochezia, or melanotic stools. GENITOURINARY: Denies frequency, urgency, nocturia, hematuria or incontinence (Storage/Irritative symptoms.) Low urinary stream, straining to void, urinary intermittency or hesitancy, splitting of the voiding stream, terminal dribbling. ENDOCRINOLOGIC: Denies polyuria, polydipsia, polyphagia or heat/cold intolerances. HEMATOLOGIC: Denies thrombophilia/previous clots, or coagulopathy/bleeding disorders. ONCOLOGIC: Denies personal history of malignancy. DERMATOLOGIC: Denies rashes or pruritus. PSYCHIATRIC: Denies any suicidal or homicidal ideation. Denies hallucinations. PHYSICAL EXAM GENERAL APPEARANCE: The patient is sedated NEUROLOGICAL: Cranial nerves II-XII grossly intact. Motor is 5/5 in bilateral upper and lower extremities proximal to distal. No sensory deficits. HEENT: Face is symmetric. Pupils are equal and reactive. Extraocular movements are intact. NECK: Supple. No JVD. No thyromegaly. No submental, submandibular, pre- /postauricular, occipital or supraclavicular lymphadenopathy. CHEST: Normal chest expansion. No Telemetry. LUNGS: Absence of any rales, rhonchi or any wheezing. CARDIOVASCULAR: Regular. S1 and S2 normal. No appreciable rubs, murmurs or gallops. ABDOMEN: Soft, nontender, and nondistended. There is no rebound, voluntary guarding, or rigidity. : Deferred. No Hearn. EXTREMITIES: Non-edematous and not cyanotic. No clubbing. Good capillary refill. SKIN: No skin breakdown. Vital Signs (last 8hr) Date Time Temp Pulse Resp B/P (MAP) Pulse Ox O2 Delivery O2 Flow Rate FiO2 06/23/24 15:15 94.5 108 14 137/74 (95) 06/23/24 15:00 108 14 135/73 (93) 06/23/24 14:45 110 14 132/71 (91) 06/23/24 14:30 110 14 131/70 (90) 06/23/24 14:15 111 14 132/70 (90) 06/23/24 14:00 110 14 128/68 (88) 06/23/24 13:45 110 14 176/168 (171) 06/23/24 13:30 110 15 126/63 (84) 06/23/24 13:15 111 16 124/63 (83) 06/23/24 13:00 110 15 124/63 (83) 06/23/24 12:45 109 15 122/61 (81) 06/23/24 12:30 109 15 120/58 (78) 97 06/23/24 12:15 114 15 114/57 (76) 06/23/24 12:00 113 14 114/56 (75) 06/23/24 12:00 97 Ventilator+ 2 30 06/23/24 12:00 110 30 06/23/24 11:45 115 14 113/55 (74) 06/23/24 11:30 115 14 113/54 (73) 100 06/23/24 11:15 114 14 111/52 (71) 06/23/24 11:00 97.3 121 14 110/51 (70) 06/23/24 10:45 147 18 129/61 (83) 90 06/23/24 10:30 147 21 96/54 (68) 06/23/24 10:26 30 06/23/24 10:15 146 20 106/58 (74) 06/23/24 10:00 146 21 124/63 (83) 06/23/24 09:45 149 22 118/63 (81) 06/23/24 09:30 146 40 06/23/24 09:30 152 20 LABS: Laboratory: Test 06/23/24 14:01 06/23/24 14:00 06/23/24 12:24 06/23/24 10:17 Range/Units Whole Blood Glucose 170 #H 70-110 MG/DL Activated Partial Thromboplast Time 128.2 *H 26.3-35.5 SEC Lactic Acid Level 9.6 H 0.8-2.5 mmol/L Blood Gas Specimen Type Arterial Arterial Blood pH 7.430 7.350-7.450 Arterial Blood Partial Pressure CO2 31 L 32-45 mmHg Arterial Blood Partial Pressure O2 122.0 H 83.0-108.0 mmHg Arterial Blood HCO3 19.9 L 21.0-28.0 mmol/L Arterial Blood Oxygen Saturation 97.8 94.0-98.0 % Arterial Blood Base Excess -3.7 L -2.0-3.0 mmol/L Hemoglobin (Blood Gas) 8.8 L 12.0-16.0 g/dL Sodium (Blood Gas) 141 136-145 MMOL/L Bedside Potassium (Blood Gas) 3.3 L 3.4-4.5 MMOL/L Bedside Chloride (Blood Gas) 107 98-107 MMOL/L Bedside Glucose (Blood Gas) 96 H 65-95 MG/DL Bedside Ionized Calcium (Blood Gas) 1.07 L 1.15-1.33 MMOL/L Bedside Lactic Acid (Blood Gas) 9.60 *H 0.36-0.75 MMOL/L Blood Gas Temperature 37.0 35.5-37.0 CELSIUS Blood Gas Respiration Rate 14.0 min. Blood Gas Vent Mode AC ROOM AIR FiO2 30.0 % Blood Gas Tidal Volume 450 ml Blood Gas PEEP 5 cm H2O Blood Gas Specimen Comment RR, DARRIUS,RN Sodium Level 140 136-145 mmol/L Potassium Level 3.9 3.5-5.1 mmol/L Chloride Level 107 101-111 mmol/L Carbon Dioxide Level 13 L 21-32 mmol/L Blood Urea Nitrogen 22 H 7-18 mg/dL Creatinine 1.9 H 0.5-1.0 mg/dL Glomerular Filtration Rate Calc 28 >90 mL/min Random Glucose 52 #L 70-105 mg/dL Total Calcium 7.7 L 8.5-10.1 mg/dL Magnesium Level 1.50 L 1.80-2.40 mg/dL Test 06/23/24 03:30 06/22/24 22:22 06/22/24 20:15 06/22/24 20:11 Range/Units White Blood Count 37.4 #*H 4.8-10.8 K/uL Red Blood Count 3.39 L 4.00-5.50 MIL/uL Hemoglobin 10.1 L 12.0-16.0 g/dL Hematocrit 29.6 L 36-48 % Mean Corpuscular Volume 87.3 79-99 fL Mean Corpuscular Hemoglobin 29.8 27.0-33.0 pg Mean Corpuscular Hemoglobin Concent 34.1 32.0-36.0 g/dL Red Cell Distribution Width 15.4 11.0-15.5 % Platelet Count 575 H 130-400 K/uL Mean Platelet Volume 8.6 7.5-10.5 fL Immature Granulocyte % (Auto) 5.1 H 0-1 % Neutrophils (%) (Auto) 89.0 H 40.0-77.0 % Lymphocytes (%) (Auto) 4.8 L 21.0-51.0 % Monocytes (%) (Auto) 0.9 L 3.0-13.0 % Eosinophils (%) (Auto) 0.1 0.0-8.0 % Basophils (%) (Auto) 0.1 0.0-5.0 % Neutrophils # (Auto) 33.3 H 1.8-7.7 K/uL Lymphocytes # (Auto) 1.8 1.0-4.8 K/uL Monocytes # (Auto) 0.4 0.1-1.0 K/uL Eosinophils # (Auto) 0.03 0.00-0.70 K/uL Basophils # (Auto) 0.03 0.00-0.20 K/uL Absolute Immature Granulocyte (auto 1.89 H 0-1 K/uL Nucleated Red Blood Cells 0.1 0.0-0.19 % White Cell Morphology Comment See comments Hemoglobin A1c 5.3 4.0-6.0 % Estimated Average Glucose (eAG) 105 70-126 mg/dL Phosphorus Level 2.1 L 2.5-4.9 mg/dL Total Bilirubin 0.2 0.2-1.0 mg/dL Aspartate Amino Transf (AST/SGOT) 21 10-37 U/L Alanine Aminotransferase (ALT/SGPT) 9 L 12-78 U/L Alkaline Phosphatase 99 50-136 U/L Total Protein 3.3 L 6.0-8.3 g/dL Albumin 1.1 L 3.5-5.0 g/dL Thyroid Stimulating Hormone (TSH) 16.61 #H 0.36-3.74 uIU/mL Influenza Type A Antigen Negative For Type A NEGATIVE Influenza Type B Antigen Negative For Type B NEGATIVE SARS-CoV-2, RNA, NAAT NEGATIVE SARS CoV-2 NEGATIVE Blood Gas Flow-by 4.00 0.00-15.00 L/min Urine Color YELLOW YELLOW Urine Appearance CLOUDY H CLEAR Urine pH 5.0 5.0-8.0 Urine Specific Turney 1.016 1.001-1.031 Urine Protein 20 H NEGATIVE mg/dL Urine Glucose (UA) NEGATIVE NEGATIVE mg/dL Urine Ketones NEGATIVE NEGATIVE mg/dL Urine Occult Blood NEGATIVE NEGATIVE Urine Nitrate 1+ H NEGATIVE Urine Bilirubin NEGATIVE NEGATIVE mg/dL Urine Urobilinogen 0.2 0.2-1.0 mg/dL Urine Leukocyte Esterase 25 H NEGATIVE Marley/uL Urine RBC 2-5 H 0-1 /HPF Urine WBC 11-25 H 0-1 /HPF Urine Squamous Epithelial Cells RARE 0-2 /HPF Urine Bacteria RARE None Seen /HPF Urine Other Casts 2 None Seen /LPF Test 06/22/24 17:36 Range/Units Segmented Neutrophils % 24 L 40-70 % Band Neutrophils % 73 H 0-2 % Lymphocytes % (Manual) 3 L 22-44 % Differential Comment MANUAL DIFFERENTIAL Platelet Morphology Comment Red Blood Cell Morphology See comments Total Creatine Kinase 43 # 21-232 U/L Troponin I High Sensitivity 5 4-50 ng/L B-Type Natriuretic Peptide 119 H 0-100 pg/mL Procalcitonin 6.63 H 0.05-0.5 ng/mL Current Medications Medications (Trade) Dose Ordered Sig/Dionisio Route PRN Reason Start Time Stop Time Status Last Admin Dose Admin Acetaminophen (TYLenol 325MG TAB) 650 mg Q4H PRN PO TEMPERATURE GREATER THAN 101.5 06/23/24 03:30 07/23/24 03:29 Acetaminophen (TYLenol 650MG SUPPOSITORY) 650 mg Q6H PRN RC MILD PAIN (1-3) 06/22/24 20:30 07/22/24 20:29 Albumin Human 100 ml @ 0 mls/hr Q6H6 IV 06/23/24 00:00 06/23/24 12:52 DC Albumin Human 250 ml @ 0 mls/hr AD IV 06/23/24 11:30 06/24/24 11:29 06/23/24 11:36 100 MLS/HR Cefepime HCl (MAXipime 2 gm vial) 2 gm Q12H IVPB 06/22/24 21:00 06/23/24 03:25 DC 06/22/24 22:03 2 GM Cefepime HCl (MAXipime 2 gm vial) 2 gm Q24H IVPB 06/23/24 21:00 07/03/24 20:59 Enoxaparin Sodium (Lovenox) 30 mg DAILY SQ 06/23/24 09:00 07/23/24 08:59 06/23/24 11:22 30 MG Fat Emulsion Intravenous 250 ml @ 42 mls/hr DAILY10 IV 06/24/24 10:00 07/24/24 09:59 Fentanyl Citrate 100 ml @ 2.5 mls/hr PROTOCOL IV 06/23/24 09:00 06/30/24 08:59 06/23/24 15:25 2.5 MLS/HR Fluconazole/ Sodium Chloride (DiFLUCan 200 MG/ NS 100 ML) 200 mg Q24H IVPB 06/23/24 03:30 07/23/24 03:29 06/23/24 04:17 200 MG Furosemide 100 mg/ Sodium Chloride 100 ml @ 0 mls/hr PROTOCOL IV 06/23/24 12:00 06/23/24 12:44 DC 06/23/24 11:37 5 MLS/HR Heparin Sodium (Porcine) (HEParin 5,000 UNIT VIAL) 5,000 unit BID SQ 06/22/24 21:00 06/22/24 20:48 DC Hydrocortisone Sodium Succinate (Solu-corTEF 100MG) 50 mg Q6H6 IV 06/23/24 09:00 07/23/24 08:59 06/23/24 11:21 50 MG Hydromorphone HCl (DiLAUDid 1MG INJ) 1 mg Q3H3 PRN IVP SEVERE PAIN (7-10) 06/23/24 03:30 06/28/24 03:29 Insulin Human Regular (humuLIN R 100 UNIT/ML 3ML) INSULIN SLIDING SCAL... ACHS SQ 06/22/24 21:00 07/22/24 20:59 Ketorolac Tromethamine (toRADol) 15 mg Q6H PRN IV MODERATE PAIN (4-6) 06/23/24 03:30 06/28/24 03:29 Lactated Ringer's 1,000 ml @ 125 mls/hr Q8H IV 06/22/24 20:30 06/23/24 12:44 DC 06/23/24 11:23 125 MLS/HR Lactated Ringer's (Lactated Ringers 1000ml) 500 ml BOLUS IV 06/23/24 05:30 07/23/24 05:29 Linezolid 300 ml @ 150 mls/hr Q12H IV 06/23/24 15:00 07/03/24 14:59 06/23/24 15:07 150 MLS/HR Magnesium Sulfate 50 ml @ 0 mls/hr PROTOCOL IV 06/23/24 04:30 4/3/25 04:29 06/23/24 11:46 25 MLS/HR Magnesium Sulfate (Magnesium 4gm Premix 100ml) 4 gm AD IV 06/23/24 05:30 06/23/24 05:59 DC Metronidazole/ Sodium Chloride 100 ml @ 100 mls/hr Q8H6 IVPB 06/23/24 14:00 07/03/24 13:59 06/23/24 15:03 100 MLS/HR Morphine Sulfate (morPHINE 2MG SYG) 2 mg Q4H PRN IVP SEVERE PAIN (7-10) 06/22/24 20:30 06/23/24 03:21 DC Norepinephrine 250 ml @ 0 mls/hr PROTOCOL IV 06/22/24 19:30 06/23/24 03:51 DC 06/22/24 20:15 45 MLS/HR Norepinephrine Bitartrate 32 mg/ Sodium Chloride 250 ml @ 0 mls/hr Q0M STAT IV 06/23/24 03:47 06/23/24 03:52 DC 06/23/24 07:22 32.8 MLS/HR Ondansetron HCl (zoFRAN 4MG INJ) 4 mg Q6H PRN IV NAUSEA/VOMITING 06/22/24 20:30 07/22/24 20:29 Ondansetron HCl (zoFRAN 4MG INJ) 4 mg Q6H PRN IVP NAUSEA/VOMITING 06/23/24 03:30 06/23/24 03:18 DC Pantoprazole Sodium (PROTonix 40MG INJ) 40 mg BID IVP 06/23/24 09:00 07/23/24 08:59 06/23/24 11:21 40 MG Pantoprazole Sodium (PROTonix 40MG INJ) 40 mg DAILY IV 06/23/24 09:00 06/23/24 03:19 DC Pharmacy Profile Note (Pharmacy Communication) 1 each ONCE MISC 06/23/24 14:00 06/23/24 13:46 DC Phenylephrine HCl 100 mg/Sodium Chloride 250 ml @ 0 mls/hr PROTOCOL IV 06/23/24 08:30 07/23/24 08:29 06/23/24 13:00 32.67 MLS/HR Piperacillin Sod/ Tazobactam Sod (Zosyn 3.375gm+NS 50ml) 3.375 gm Q8H IVPB 06/23/24 03:30 06/23/24 04:34 DC Potassium Chloride 100 ml @ 50 mls/hr AD PRN IV POTASSIUM PROTOCOL 06/23/24 05:30 07/23/24 05:29 Propofol (DIPRivan 1000MG/ 100ML) 1,000 mg PROTOCOL PRN IV SEDATION 06/23/24 03:30 07/23/24 03:29 06/23/24 04:06 1,000 MG Sodium Bicarbonate 150 meq/Dextrose 1,150 ml @ 125 mls/hr Q9H12M IVP 06/23/24 13:00 07/23/24 12:59 06/23/24 13:13 125 MLS/HR Sodium Chloride 1,000 ml @ 0 mls/hr Q0M IV 06/23/24 12:00 07/23/24 11:59 06/23/24 15:43 1,000 MLS/HR Sodium Chloride (NS 50ml) 50 ml AD IV 06/23/24 03:30 06/23/24 03:26 DC Vasopressin 20 units/Sodium Chloride 100 ml @ 0 mls/hr PROTOCOL IV 06/22/24 20:30 07/22/24 20:29 06/22/24 21:22 9 MLS/HR DIAGNOSTICS / RADIOLOGY: PROCEDURE: ABD PEL WO - CT ABDOMEN/PELVIS W/O CONTRAST CT ABDOMEN/PELVIS W/O CONTRAST INDICATION: vomiting TECHNIQUE: CT ABDOMEN/PELVIS W/O CONTRAST. Oral contrast was not given. Coronal and sagittal reformats were performed. CT was performed with one or more of the following dose reduction techniques: Automated exposure control, adjustment of the mA and/or kV according to the patient's size, or use of the iterative reconstruction technique. Comparison: 06/09/2024 FINDINGS: The noncontrast nature this study limits evaluation of abdominal viscera. Small right pleural effusion is seen with bilateral lower lobe atelectasis versus early infection. Trace of left effusion is noted. There is hepatic steatosis. Cholecystectomy changes are noted. Stable appearance of the spleen, pancreas and adrenal glands. There is no hydronephrosis. Evaluation of the pelvis is markedly degraded due to streak artifact from the bilateral hip prosthesis. Large amount of free abdominal air is seen concerning for bowel perforation. Surgical consultation is recommended. Prominent fluid-filled loops of small bowel are noted which may represent ileus versus obstruction. Transition point is not definitely identified. There is mild constipation. Vascular calcifications are noted. Appendix is not clearly visualized limiting evaluation. Correlate clinically. Atherosclerotic changes of the aorta with calcified plaques. Degenerative changes of the spine are seen. Postop changes of posterior fusion seen at L4-L5. There is diffuse soft tissue anasarca. PROCEDURE: CXR1VW - CHEST 1VW INDICATION: LETHARGY TECHNIQUE: CHEST 1VW COMPARISON: 06/11/2024 FINDINGS AND IMPRESSION: Prominent bilateral interstitial markings which may represent bronchitis or vascular congestion in the proper clinical setting. Cardiac silhouette is within normal limits. Mild degenerative changes of the spine. Thoracic spine stimulator leads are seen. IMPRESSION: 1. Large amount of free abdominal air is seen concerning for bowel perforation. Surgical consultation is recommended. 2. Prominent fluid-filled loops of small bowel are noted which may represent ileus versus obstruction. Transition point is not definitely identified. 3. There is mild constipation. Additional findings as described above. ASSESSMENT: Suspected septic shock, POA Acute hypoxic Respiratory failure POA Acute encephalopathy, in the setting of severe sepsis POA Acute bowel perforation, with subsequent peritonitis s/p exploratory laparotomy 06/23/2024 Dr. Valenzuela POA Urinary tract infection, POA, Gram-negative rods Acute kidney injury, POA Lactic acidosis, POA, improving Chronic debility, POA DM type 2, POA GERD, POA History small-bowel obstruction History of fibromyalgia History of hypertension, now hypotensive in the setting of septic shock Sacral ulcer, POA PLAN: Suspected septic shock, POA Continue IV antibiotic cefepime2 g Q 24 H, metronidazole, linezolid q.12h, fluconazole as per ID recommendations Continue IV fluids Acute hypoxic Respiratory failure POA Intubated [PEEP 5, TV 450]and sedated [ on Diprivan] Continue ICU care Complete bedrest and Intubation watch Monitor O2 levels and keep saturation above 92% Continue Solu-Medrol 50 mg q.6 H as per critical Care consult Follow up on respiratory culture results Acute encephalopathy, in the setting of severe sepsis POA Continue IV fluids and antibiotics Monitor lactic acid, electrolyte levels Replace electrolytes as per the protocol, if needed Urinary tract infection, POA, Gram-negative rods Preliminary urinalysis resulted in Gram-negative rods Follow up on urine culture results Continue IV antibiotics as per ID recommendation Acute kidney injury, POA BUN 23, creatinine 1.7 I&Os Daily weights Avoid NSAIDS, Nephrotoxic drugs and contrast Adjust the medication dose to renal dosing Continue IV fluids DM type 2, POA, GERD, POA Continue Insulin sliding scale Continue Protonix IV Glucometer checks Hypotension, in view of septic shock Continue vasopressin and phenylephrine IV as per critical care consult recommendation Sacral ulcer, POA Wound care consult is not able to assess the patient currently NPO as per General surgery consult recommendation ATTESTATION BY PHYSICIAN I have seen and examined the patient. I reviewed the documentation, medical decision making, and treatment plan as noted by the resident above. I agree with the findings and plan of care. Catarino Cornejo MD, PRIYANKA MD Jun 23, 2024 17:28
[2024-06-23 17:38] LABS: CREATININE 1.9 mg/dL (0.5-1.0); MAGNESIUM 2.2 mg/dL (1.80-2.40); POTASSIUM 3.4 mmol/L (3.5-5.1)
--- NOTE | 2024-06-23 17:55 | NUR ---
TJ WESLEY, UPDATED ON PATIENTS LABD, V/S, DRIPS. ORDERS RECEIVED.
[2024-06-23] MEDS: LACTATED RINGERS 1000ML IV ONE (18:40)
[2024-06-23] MEDS: PoTASSium chloRIDE 20MEQ/100ML 100 ML IV PRN (18:43)
--- NOTE | 2024-06-23 19:29 | NUR ---
DR HUNTER UPDATED ON PATIENT, V/S, DRIPS, LACTIC ACID OF 10.1, ORDERS RECEIVED.
[2024-06-23] MEDS: ceFEPime HCL 2 GM VIAL IVPB SCH (21:15)
[2024-06-23 21:27] LABS: BASOPHILS # (AUTO) 0.03 K/uL (0.00-0.20); BASOPHILS % (AUTO) 0.1 % (0.0-5.0); EOSINOPHILS # (AUTO) 0.01 K/uL (0.00-0.70); HEMATOCRIT 26.4 % (36-48); IMMATURE GRANULOCYTE ABSOLUTE 4.47 K/uL (0-1); LYMPHOCYTES # (AUTO) 3.1 K/uL (1.0-4.8); LYMPHOCYTES % (AUTO) 9.7 % (21.0-51.0); MEAN CORPUSCULAR HEMOGLOBIN 29.4 pg (27.0-33.0); MEAN CORPUSCULAR HGB CONC 33.3 g/dL (32.0-36.0); MEAN CORPUSCULAR VOLUME 88.3 fL (79-99); MONOCYTES # (AUTO) 0.4 K/uL (0.1-1.0); MONOCYTES % (AUTO) 1.4 % (3.0-13.0); NEUTROPHILS # (AUTO) 23.5 K/uL (1.8-7.7); NEUTROPHILS % (AUTO) 74.6 % (40.0-77.0); NUCLEATED RED BLOOD CELLS 0.1 % (0.0-0.19); PLATELET COUNT (AUTO) 343 K/uL (130-400); RED BLOOD CELL COUNT(AUTO) 2.99 MIL/uL (4.00-5.50); RED CELL DISTRIBUTION WIDTH 15.8 % (11.0-15.5)
[2024-06-23 21:32] LABS: WHITE BLOOD COUNT (AUTO) 31.5 K/uL (4.8-10.8)
[2024-06-23] MEDS: MIDAZOLAM 100MG-0.9% NS 100ML 100 ML IV PRN (23:09)
[2024-06-24] VITALS (114 sets, daily range): BP systolic 86–146; BP diastolic 51–83; PULSE 73–109; RESP 14–15; TEMP 97.1–98.6; O2SAT 96–100
[2024-06-24] MEDS: [UNRECOGNIZED DRUG - OTHER] IVPB SCH (02:00)
--- NOTE | 2024-06-24 02:53 | CONS ---
INFECTIOUS DISEASE CONSULTATION DATE OF SERVICE: 06/23/2024 REFERRING PHYSICIAN: Luis Carlos Andrews NP REASON FOR CONSULTATION: Septic shock and antibiotic management. HISTORY OF PRESENT ILLNESS: The patient is a 73-year-old female with history of diabetes mellitus, osteoarthritis, and hypertension, who presented to the Emergency Room, with abdominal pain. It has been going on for 2-3 days. The patient also complained of fever, chills, nausea and vomiting. The patient in the ER was found with low blood pressure. CT of the abdomen was done, which shows large amount of free intraperitoneal air. General Surgery was consulted and the patient was taken for exploratory laparotomy, which revealed pneumoperitoneum with intestinal perforation. Bowel resection was done. The patient was admitted to ICU. The patient is on multiple vasopressors, has been started on antibiotic. No family at the bedside. PAST MEDICAL HISTORY: * Osteoarthritis. * Hypertension. * Hypothyroidism. * Diabetes mellitus. * Obesity. * Fibromyalgia. * Left hip prosthetic dislocation. PAST SURGICAL HISTORY: * Hysterectomy. * Bilateral total hip arthroplasty. * Multiple left hip revision arthroplasty. ALLERGIES: * PENICILLIN, but tolerating carbapenem and cephalosporin. * VANCOMYCIN. * LYRICA. CURRENT MEDICATIONS: Reviewed. SOCIAL HISTORY: . No alcohol, tobacco or illicit drug use. FAMILY HISTORY: Positive for diabetes mellitus. REVIEW OF SYSTEMS: The patient is intubated and sedated. Available history obtained from medical record. PHYSICAL EXAMINATION: GENERAL: Elderly female, intubated, sedated, ill looking. VITAL SIGNS: Temperature 94.6, pulse 146, respiratory rate 19, BP 136/88. EYES: No icterus. Pupils equal and reactive. HENT: Orally intubated, ventilatory support. NG tube in place. NECK: Supple, no JVD or thyromegaly. LUNGS: Good air entry. No rales, no rhonchi. CARDIOVASCULAR: S1, S2 regular, tachycardic. No murmur heard. ABDOMEN: Open abdominal surgical incision, which is sealed with wound vacuum. CENTRAL NERVOUS SYSTEM: The patient is sedated. No withdrawal to tactile stimuli. SKIN: No rashes, no itchiness. MUSCULOSKELETAL: Chronic dislocation and swelling involving the left hip, no signs of infection. GENITOURINARY: Hearn catheter in place and hematuria. LABORATORY DATA: Sodium 140, potassium 3.9, BUN 22, creatinine 1.9. WBC 37.4, hemoglobin 10.1, platelets 575. Urine culture growing gram-negative yamilet. Peritoneal fluid culture pending. RADIOLOGY: CT of the abdomen results reviewed. ASSESSMENT: A 73-year-old female admitted with abdominal pain, nausea and vomiting. CURRENT PROBLEMS: Include: * Septic shock. * Nontraumatic intestinal perforation, status post exploratory laparotomy. * Generalized peritonitis. * Respiratory failure status post intubation. * Respiratory failure, status post intubation. * Leukocytosis. * Renal failure. PLAN: * Continue cefepime. * Continue fluconazole. * Start the patient on Flagyl. * Start the patient on linezolid. * Continue critical care support. * Continue vasopressor. * Continue ventilatory support. * Monitor electrolytes. * Monitor hemoglobin and hematocrit. Thank you for allowing me to participate in the care of this patient. TID: [id number] RECEIPT: [id number] MTDD
[2024-06-24 03:25] LABS: BASOPHILS # (AUTO) 0.02 K/uL (0.00-0.20); BASOPHILS % (AUTO) 0.1 % (0.0-5.0); EOSINOPHILS # (AUTO) 0.01 K/uL (0.00-0.70); HEMATOCRIT 32.4 % (36-48); IMMATURE GRANULOCYTE ABSOLUTE 4.07 K/uL (0-1); LYMPHOCYTES # (AUTO) 2.4 K/uL (1.0-4.8); LYMPHOCYTES % (AUTO) 8.9 % (21.0-51.0); MEAN CORPUSCULAR HEMOGLOBIN 30.1 pg (27.0-33.0); MEAN CORPUSCULAR HGB CONC 34.6 g/dL (32.0-36.0); MEAN CORPUSCULAR VOLUME 87.1 fL (79-99); MONOCYTES # (AUTO) 0.6 K/uL (0.1-1.0); MONOCYTES % (AUTO) 2.3 % (3.0-13.0); NEUTROPHILS # (AUTO) 19.6 K/uL (1.8-7.7); NEUTROPHILS % (AUTO) 73.4 % (40.0-77.0); NUCLEATED RED BLOOD CELLS 0.1 % (0.0-0.19); PLATELET COUNT (AUTO) 312 K/uL (130-400); RED BLOOD CELL COUNT(AUTO) 3.72 MIL/uL (4.00-5.50); RED CELL DISTRIBUTION WIDTH 15.9 % (11.0-15.5); WHITE BLOOD COUNT (AUTO) 26.7 K/uL (4.8-10.8)
[2024-06-24 03:41] LABS: MAGNESIUM 1.8 mg/dL (1.80-2.40); POTASSIUM 3.6 mmol/L (3.5-5.1)
[2024-06-24 04:46] LABS: LYMPHOCYTES % (MANUAL) 4 % (22-44); METAMYELOCYTES % 3 % (0-0); MONOCYTES % (MANUAL) 9 % (2-9); REACTIVE LYMPHOCYTES 1 % (0-0); SEGMENTED NEUTROPHILS % 82 % (40-70); TOTAL CELLS COUNTED 100
[2024-06-24 04:47] LABS: MAN.DIFF COMMENT-IMPRESSION MANUAL DIFFERENTIAL; MYELOCYTES % 1 % (0-0)
[2024-06-24 04:48] LABS: PLATELET MORPHOLOGY COMMENT ADEQUATE; WBC MORPHOLOGY IMMATURE GRAN 1+
[2024-06-24] MEDS: FAT EMULSIONS 20% 250ML 250 ML IV SCH (10:07)
--- NOTE | 2024-06-24 11:45 | HMCIMG ---
FRONTAL CHEST RADIOGRAPH INDICATION: Endotracheal intubation COMPARISON: 06/23/2024 FINDINGS/IMPRESSION: satellite project site monitor leads overlie the field of view. Tip of endotracheal tube located 4.9 cm above the amy. Remainder of the study is unchanged.
--- NOTE | 2024-06-24 11:56 | PN ---
[facility] PROGRESS NOTE Date of Service: Jun 24, 2024 Time of Service: 11:49 SUBJECTIVE: Ms. Chandler is a 73-year-old female, with a past medical history of hypertension, hypothyroidism, DM, anemia, fibromyalgia, recurrent SpO2 is, chronic left hip pain, cervical CA presented to the ER with the complaints of sharp CBC left lower quadrant abdominal pain with nausea and vomiting since 2 days. Initial vitals blood pressure 62/50 which improved on Levophed. Initial labs WBCs 26.3, lactic acid 6.7. CT abdomen/pelvis resulted in Large amount of free abdominal air is seen concerning for bowel perforation. Surgery consult was obtained. 06/23/2024 postop patient is seen and examined at the bedside. She is sedated on Diprivan and intubated. She underwent exploratory laparotomy 06/23/24 Dr. Valenzuela for perforated small bowel and subsequent peritonitis this morning. Vitals blood pressure 104/58, heart rate 146 on phenylephrine and vasopressin. Labs WBC 37.4, BUN 2 , creatinine 1.7, magnesium 0.90, TSH 16.6. Lactic acid improved from 7.7- 5. Urinalysis positive for leukocyte esterase. Chest x-ray revealed prominent bilateral interstitial markings. 06/24/2024 Patient is seen at the bedside. She is currently sedated on fentanyl and propofol. Vitals blood pressure 131/72 on vasopressin and phenylephrine. Currently intubated with VT 450, peep 5 and respiratory rate 14. Labs WBC improved from 31.5-26.7, hemoglobin 11.2, BUN 25 , creatinine 2 , lactic acid 10.3. Urine culture resulted in E coli. REVIEW OF SYSTEMS: Not able to get a proper history as the patient is sedated CONSTITUTIONAL: Denies fevers, chills, or night sweats. No unintentional weight loss reported. NEUROLOGICAL: Denies headache, amaurosis fugax, motor weakness, sensory deficit, vertigo/spinning sensation, gait abnormalities, or tremors. ENT: No hearing loss, otalgia, otorrhea, rhinitis, rhinorrhea, hoarseness, or sore throat. CARDIOVASCULAR: Denies any exertional angina, dyspnea on exertion, orthopnea, paroxysmal nocturnal dyspnea, palpitations, life-threatening arrhythmias, claudication. PULMONARY: Denies any shortness of breath, cough, phlegm/sputum, hemoptysis, pleuritic chest pain. SLEEP: Denies morning headaches, daytime somnolence or napping. Denies difficulty falling asleep, staying asleep, waking from sleep. Denies knowledge of snoring. GASTROINTESTINAL: Denies any type of dysphagia to either liquids or solids. Denies nausea, vomiting, pyrosis, early satiety, abdominal pain, diarrhea, constipation, or changes in stool consistency or caliber. Denies coffee-ground emesis, hematemesis, hematochezia, or melanotic stools. GENITOURINARY: Denies frequency, urgency, nocturia, hematuria or incontinence (Storage/Irritative symptoms.) Low urinary stream, straining to void, urinary intermittency or hesitancy, splitting of the voiding stream, terminal dribbling. ENDOCRINOLOGIC: Denies polyuria, polydipsia, polyphagia or heat/cold intolerances. HEMATOLOGIC: Denies thrombophilia/previous clots, or coagulopathy/bleeding disorders. ONCOLOGIC: Denies personal history of malignancy. DERMATOLOGIC: Denies rashes or pruritus. PSYCHIATRIC: Denies any suicidal or homicidal ideation. Denies hallucinations. PHYSICAL EXAM GENERAL APPEARANCE: The patient is sedated NEUROLOGICAL: Cranial nerves II-XII grossly intact. Motor is 5/5 in bilateral upper and lower extremities proximal to distal. No sensory deficits. HEENT: Face is symmetric. Pupils are equal and reactive. Extraocular movements are intact. NECK: Supple. No JVD. No thyromegaly. No submental, submandibular, pre- /postauricular, occipital or supraclavicular lymphadenopathy. CHEST: Normal chest expansion. No Telemetry. LUNGS: Absence of any rales, rhonchi or any wheezing. CARDIOVASCULAR: Regular. S1 and S2 normal. No appreciable rubs, murmurs or gallops. ABDOMEN: Soft, nontender, and nondistended. There is no rebound, voluntary guarding, or rigidity. : Deferred. No [place]. EXTREMITIES: Non-edematous and not cyanotic. No clubbing. Good capillary refill. SKIN: No skin breakdown. Vital Signs (last 8hr) Date Time Temp Pulse Resp B/P (MAP) Pulse Ox O2 Delivery O2 Flow Rate FiO2 06/24/24 10:33 97 14 97 30 121/66 (84) 06/24/24 10:18 97 14 97 30 121/66 (84) 06/24/24 10:03 98 14 98 30 123/67 (85) 06/24/24 09:48 98 14 98 30 129/71 (90) 06/24/24 09:33 98 14 100 30 144/80 (101) 06/24/24 09:18 95 14 98 30 123/68 (86) 06/24/24 09:06 96 30 06/24/24 09:02 95 14 98 30 127/71 (89) 06/24/24 08:47 96 14 98 30 131/73 (92) 06/24/24 08:31 95 14 98 30 132/74 (93) 06/24/24 08:30 93 14 130/73 98 Ventilator 30 06/24/24 08:16 93 14 98 30 131/74 (93) 06/24/24 08:15 94 14 132/75 98 Ventilator 30 06/24/24 08:01 93 14 98 30 132/76 (94) 06/24/24 08:00 93 14 132/76 98 Ventilator 30 06/24/24 08:00 98 Ventilator+ 30 06/24/24 07:46 93 14 98 30 136/79 (98) 06/24/24 07:45 93 14 136/79 98 Ventilator 30 06/24/24 07:31 92 14 98 30 135/79 (97) 06/24/24 07:30 92 14 136/79 98 Ventilator 30 06/24/24 07:16 92 14 98 30 138/80 (99) 06/24/24 07:15 93 14 137/80 98 Ventilator 30 06/24/24 07:01 97.2 92 14 98 30 139/81 (100) 06/24/24 07:00 97.2 93 14 140/82 98 Ventilator 30 06/24/24 06:46 92 14 99 30 139/81 (100) 06/24/24 06:45 93 14 140/82 98 Ventilator 30 06/24/24 06:31 94 15 99 30 140/83 (102) 06/24/24 06:23 96 30 06/24/24 06:15 95 14 99 139/82 (101) 06/24/24 06:00 97 14 99 138/81 (100) 06/24/24 05:45 98 14 100 139/81 (100) 06/24/24 05:30 99 14 99 140/81 (100) 06/24/24 05:15 100 14 98 143/83 (103) 06/24/24 05:00 96 14 99 144/83 (103) 06/24/24 04:45 97 14 100 139/80 (99) 06/24/24 04:30 98 14 98 143/82 (102) 06/24/24 04:15 98 14 98 142/81 (101) 06/24/24 04:03 98.6 06/24/24 04:00 101 14 98 145/82 (103) 06/24/24 04:00 98 Ventilator+ 30 LABS: Laboratory: Test 06/24/24 09:51 06/24/24 03:12 06/23/24 20:43 06/23/24 14:00 Range/Units Lactic Acid Level 7.0 H 0.8-2.5 mmol/L White Blood Count 26.7 H 4.8-10.8 K/uL Red Blood Count 3.72 #L 4.00-5.50 MIL/uL Hemoglobin 11.2 #L 12.0-16.0 g/dL Hematocrit 32.4 #L 36-48 % Mean Corpuscular Volume 87.1 79-99 fL Mean Corpuscular Hemoglobin 30.1 27.0-33.0 pg Mean Corpuscular Hemoglobin Concent 34.6 32.0-36.0 g/dL Red Cell Distribution Width 15.9 H 11.0-15.5 % Platelet Count 312 130-400 K/uL Mean Platelet Volume 8.9 7.5-10.5 fL Immature Granulocyte % (Auto) 15.3 H 0-1 % Neutrophils (%) (Auto) 73.4 40.0-77.0 % Lymphocytes (%) (Auto) 8.9 L 21.0-51.0 % Monocytes (%) (Auto) 2.3 L 3.0-13.0 % Eosinophils (%) (Auto) 0.0 0.0-8.0 % Basophils (%) (Auto) 0.1 0.0-5.0 % Neutrophils # (Auto) 19.6 H 1.8-7.7 K/uL Lymphocytes # (Auto) 2.4 1.0-4.8 K/uL Monocytes # (Auto) 0.6 0.1-1.0 K/uL Eosinophils # (Auto) 0.01 0.00-0.70 K/uL Basophils # (Auto) 0.02 0.00-0.20 K/uL Absolute Immature Granulocyte (auto 4.07 H 0-1 K/uL Segmented Neutrophils % 82 H 40-70 % Lymphocytes % (Manual) 4 L 22-44 % Monocytes % (Manual) 9 2-9 % Metamyelocytes % 3 H 0-0 % Myelocytes % 1 H 0-0 % Nucleated Red Blood Cells 0.1 0.0-0.19 % Differential Comment MANUAL DIFFERENTIAL Reactive Lymphocytes 1 H 0-0 % White Cell Morphology Comment IMMATURE GRAN 1+ Platelet Morphology Comment ADEQUATE Red Blood Cell Morphology See comments Sodium Level 138 136-145 mmol/L Potassium Level 3.6 3.5-5.1 mmol/L Chloride Level 103 101-111 mmol/L Carbon Dioxide Level 25 21-32 mmol/L Blood Urea Nitrogen 25 H 7-18 mg/dL Creatinine 2.0 H 0.5-1.0 mg/dL Glomerular Filtration Rate Calc 26 >90 mL/min Random Glucose 294 H 70-105 mg/dL Total Calcium 7.2 L 8.5-10.1 mg/dL Magnesium Level 1.80 1.80-2.40 mg/dL Whole Blood Glucose 203 H 70-110 MG/DL Activated Partial Thromboplast Time 128.2 *H 26.3-35.5 SEC Test 06/23/24 12:24 06/23/24 03:30 06/22/24 22:22 06/22/24 20:15 Range/Units Blood Gas Specimen Type Arterial Arterial Blood pH 7.430 7.350-7.450 Arterial Blood Partial Pressure CO2 31 L 32-45 mmHg Arterial Blood Partial Pressure O2 122.0 H 83.0-108.0 mmHg Arterial Blood HCO3 19.9 L 21.0-28.0 mmol/L Arterial Blood Oxygen Saturation 97.8 94.0-98.0 % Arterial Blood Base Excess -3.7 L -2.0-3.0 mmol/L Hemoglobin (Blood Gas) 8.8 L 12.0-16.0 g/dL Sodium (Blood Gas) 141 136-145 MMOL/L Bedside Potassium (Blood Gas) 3.3 L 3.4-4.5 MMOL/L Bedside Chloride (Blood Gas) 107 98-107 MMOL/L Bedside Glucose (Blood Gas) 96 H 65-95 MG/DL Bedside Ionized Calcium (Blood Gas) 1.07 L 1.15-1.33 MMOL/L Bedside Lactic Acid (Blood Gas) 9.60 *H 0.36-0.75 MMOL/L Blood Gas Temperature 37.0 35.5-37.0 CELSIUS Blood Gas Respiration Rate 14.0 min. Blood Gas Vent Mode AC ROOM AIR FiO2 30.0 % Blood Gas Tidal Volume 450 ml Blood Gas PEEP 5 cm H2O Blood Gas Specimen Comment RR, DARRIUS,RN Hemoglobin A1c 5.3 4.0-6.0 % Estimated Average Glucose (eAG) 105 70-126 mg/dL Phosphorus Level 2.1 L 2.5-4.9 mg/dL Total Bilirubin 0.2 0.2-1.0 mg/dL Aspartate Amino Transf (AST/SGOT) 21 10-37 U/L Alanine Aminotransferase (ALT/SGPT) 9 L 12-78 U/L Alkaline Phosphatase 99 50-136 U/L Total Protein 3.3 L 6.0-8.3 g/dL Albumin 1.1 L 3.5-5.0 g/dL Thyroid Stimulating Hormone (TSH) 16.61 #H 0.36-3.74 uIU/mL Influenza Type A Antigen Negative For Type A NEGATIVE Influenza Type B Antigen Negative For Type B NEGATIVE SARS-CoV-2, RNA, NAAT NEGATIVE SARS CoV-2 NEGATIVE Blood Gas Flow-by 4.00 0.00-15.00 L/min Test 06/22/24 20:11 06/22/24 17:36 Range/Units Urine Color YELLOW YELLOW Urine Appearance CLOUDY H CLEAR Urine pH 5.0 5.0-8.0 Urine Specific [place] 1.016 1.001-1.031 Urine Protein 20 H NEGATIVE mg/dL Urine Glucose (UA) NEGATIVE NEGATIVE mg/dL Urine Ketones NEGATIVE NEGATIVE mg/dL Urine Occult Blood NEGATIVE NEGATIVE Urine Nitrate 1+ H NEGATIVE Urine Bilirubin NEGATIVE NEGATIVE mg/dL Urine Urobilinogen 0.2 0.2-1.0 mg/dL Urine Leukocyte Esterase 25 H NEGATIVE [place]ley/uL Urine RBC 2-5 H 0-1 /HPF Urine WBC 11-25 H 0-1 /HPF Urine Squamous Epithelial Cells RARE 0-2 /HPF Urine Bacteria RARE None Seen /HPF Urine Other Casts 2 None Seen /LPF Band Neutrophils % 73 H 0-2 % Total Creatine Kinase 43 # 21-232 U/L Troponin I High Sensitivity 5 4-50 ng/L B-Type Natriuretic Peptide 119 H 0-100 pg/mL Procalcitonin 6.63 H 0.05-0.5 ng/mL Current Medications Medications (Trade) Dose Ordered Sig/Dionisio Route PRN Reason Start Time Stop Time Status Last Admin Dose Admin Acetaminophen (TYLenol 325MG TAB) 650 mg Q4H PRN PO TEMPERATURE GREATER THAN 101.5 06/23/24 03:30 07/23/24 03:29 Acetaminophen (TYLenol 650MG SUPPOSITORY) 650 mg Q6H PRN RC MILD PAIN (1-3) 06/22/24 20:30 07/22/24 20:29 Albumin Human 100 ml @ 0 mls/hr Q6H6 IV 06/23/24 00:00 06/23/24 12:52 DC Albumin Human 250 ml @ 0 mls/hr AD IV 06/23/24 11:30 06/24/24 11:29 DC 06/23/24 11:36 100 MLS/HR Cefepime HCl (MAXipime 2 gm vial) 2 gm Q12H IVPB 06/22/24 21:00 06/23/24 03:25 DC 06/22/24 22:03 2 GM Cefepime HCl (MAXipime 2 gm vial) 2 gm Q24H IVPB 06/23/24 21:00 06/23/24 21:47 DC 06/23/24 21:15 2 GM Ceftazidime (ForTAZ/TAZidime) 1 gm Q24H IVPB 06/24/24 01:30 07/04/24 01:29 06/24/24 02:00 1 GM Enoxaparin Sodium (Lovenox) 30 mg DAILY SQ 06/23/24 09:00 07/23/24 08:59 06/24/24 08:00 30 MG Fat Emulsion Intravenous 250 ml @ 42 mls/hr DAILY10 IV 06/24/24 10:00 07/24/24 09:59 06/24/24 10:07 42 MLS/HR Fentanyl Citrate 100 ml @ 2.5 mls/hr PROTOCOL IV 06/23/24 09:00 06/30/24 08:59 06/24/24 11:19 2.5 MLS/HR Fluconazole/ Sodium Chloride (DiFLUCan 200 MG/ NS 100 ML) 200 mg Q24H IVPB 06/23/24 03:30 07/23/24 03:29 06/24/24 03:32 200 MG Furosemide 100 mg/ Sodium Chloride 100 ml @ 0 mls/hr PROTOCOL IV 06/23/24 12:00 06/23/24 12:44 DC 06/23/24 11:37 5 MLS/HR Heparin Sodium (Porcine) (HEParin 5,000 UNIT VIAL) 5,000 unit BID SQ 06/22/24 21:00 06/22/24 20:48 DC Hydrocortisone Sodium Succinate (Solu-corTEF 100MG) 50 mg Q6H6 IV 06/23/24 09:00 07/23/24 08:59 06/24/24 11:18 50 MG Hydromorphone HCl (DiLAUDid 1MG INJ) 1 mg Q3H3 PRN IVP SEVERE PAIN (7-10) 06/23/24 03:30 06/28/24 03:29 Insulin Human Regular (humuLIN R 100 UNIT/ML 3ML) INSULIN SLIDING SCAL... ACHS SQ 06/22/24 21:00 07/22/24 20:59 06/24/24 10:09 6 UNIT Ketorolac Tromethamine (toRADol) 15 mg Q6H PRN IV MODERATE PAIN (4-6) 06/23/24 03:30 06/28/24 03:29 Lactated Ringer's 1,000 ml @ 125 mls/hr Q8H IV 06/22/24 20:30 06/23/24 12:44 DC 06/23/24 11:23 125 MLS/HR Lactated Ringer's (Lactated Ringers 1000ml) 500 ml BOLUS IV 06/23/24 05:30 07/23/24 05:29 Linezolid 300 ml @ 150 mls/hr Q12H IV 06/23/24 15:00 07/03/24 14:59 06/24/24 02:00 150 MLS/HR Magnesium Sulfate 50 ml @ 0 mls/hr PROTOCOL IV 06/23/24 04:30 07/23/24 04:29 06/24/24 05:07 25 MLS/HR Magnesium Sulfate (Magnesium 4gm Premix 100ml) 4 gm AD IV 06/23/24 05:30 06/23/24 05:59 DC Metronidazole/ Sodium Chloride 100 ml @ 100 mls/hr Q8H6 IVPB 06/23/24 14:00 07/03/24 13:59 06/24/24 05:07 100 MLS/HR Midazolam HCl 100 ml @ 0 mls/hr AD PRN IV TITRATE 06/23/24 22:00 07/23/24 21:59 06/23/24 23:09 6 MLS/HR Morphine Sulfate (morPHINE 2MG SYG) 2 mg Q4H PRN IVP SEVERE PAIN (7-10) 06/22/24 20:30 06/23/24 03:21 DC Norepinephrine 250 ml @ 0 mls/hr PROTOCOL IV 06/22/24 19:30 06/23/24 03:51 DC 06/22/24 20:15 45 MLS/HR Norepinephrine Bitartrate 32 mg/ Sodium Chloride 250 ml @ 0 mls/hr Q0M STAT IV 06/23/24 03:47 06/23/24 03:52 DC 06/23/24 07:22 32.8 MLS/HR Ondansetron HCl (zoFRAN 4MG INJ) 4 mg Q6H PRN IV NAUSEA/VOMITING 06/22/24 20:30 07/22/24 20:29 Ondansetron HCl (zoFRAN 4MG INJ) 4 mg Q6H PRN IVP NAUSEA/VOMITING 06/23/24 03:30 06/23/24 03:18 DC Pantoprazole Sodium (PROTonix 40MG INJ) 40 mg BID IVP 06/23/24 09:00 07/23/24 08:59 06/24/24 07:59 40 MG Pantoprazole Sodium (PROTonix 40MG INJ) 40 mg DAILY IV 06/23/24 09:00 06/23/24 03:19 DC Pharmacy Profile Note (Pharmacy Communication) 1 each ONCE MISC 06/23/24 14:00 06/23/24 13:46 DC Phenylephrine HCl 100 mg/Sodium Chloride 250 ml @ 0 mls/hr PROTOCOL IV 06/23/24 08:30 07/23/24 08:29 06/23/24 13:00 32.67 MLS/HR Piperacillin Sod/ Tazobactam Sod (Zosyn 3.375gm+NS 50ml) 3.375 gm Q8H IVPB 06/23/24 03:30 06/23/24 04:34 DC Potassium Chloride 100 ml @ 50 mls/hr AD PRN IV POTASSIUM PROTOCOL 06/23/24 05:30 07/23/24 05:29 06/24/24 10:11 50 MLS/HR Propofol (DIPRivan 1000MG/ 100ML) 1,000 mg PROTOCOL PRN IV SEDATION 06/23/24 03:30 07/23/24 03:29 06/23/24 04:06 1,000 MG Sodium Bicarbonate 150 meq/Dextrose 1,150 ml @ 125 mls/hr Q9H12M IVP 06/23/24 13:00 07/23/24 12:59 06/24/24 06:36 125 MLS/HR Sodium Chloride 1,000 ml @ 0 mls/hr Q0M IV 06/23/24 12:00 07/23/24 11:59 06/23/24 15:43 1,000 MLS/HR Sodium Chloride (NS 50ml) 50 ml AD IV 06/23/24 03:30 06/23/24 03:26 DC Vasopressin 20 units/Sodium Chloride 100 ml @ 0 mls/hr PROTOCOL IV 06/22/24 20:30 07/22/24 20:29 06/24/24 08:43 6 MLS/HR DIAGNOSTICS / RADIOLOGY: [ ] ASSESSMENT: Suspected septic shock, POA Acute hypoxic Respiratory failure POA Acute encephalopathy, in the setting of severe sepsis POA Acute bowel perforation, with subsequent peritonitis s/p exploratory laparotomy 06/23/2024 Dr. Valenzuela POA Urinary tract infection, POA, E coli Acute kidney injury, POA Lactic acidosis, POA, improving Chronic debility, POA DM type 2, POA GERD, POA History small-bowel obstruction History of fibromyalgia History of hypertension, now hypotensive in the setting of septic shock Sacral ulcer, POA PLAN: Suspected septic shock, POA Continue IV antibiotic ceftazidime , metronidazole, linezolid q.12h, fluconazole as per ID recommendations Continue IV fluids Acute hypoxic Respiratory failure POA Intubated [PEEP 5, TV 450]and sedated [ on fentanyl and propofol] Continue ICU care Complete bedrest and Intubation watch Monitor O2 levels and keep saturation above 92% Continue Solu-Medrol 50 mg q.6 H as per critical Care consult Preliminary respiratory culture resulted in Gram-negative rods and Gram-positive cocci Acute encephalopathy, in the setting of severe sepsis POA Continue IV fluids and antibiotics Monitor lactic acid, electrolyte levels Replace electrolytes as per the protocol, if needed Urinary tract infection, POA, Gram-negative rods Preliminary urinalysis resulted in Gram-negative rods Urine culture resulted in E coli Continue IV antibiotics as per ID recommendation Acute kidney injury, POA BUN 25, creatinine 2 Will order 1L LR @50mls/hr for now I&Os Daily weights Avoid NSAIDS, Nephrotoxic drugs and contrast Adjust the medication dose to renal dosing Continue IV fluids DM type 2, POA, GERD, POA Continue Insulin sliding scale Continue Protonix IV Glucometer checks Hypotension, in view of septic shock Continue vasopressin and phenylephrine IV as per critical care consult recommendation Sacral ulcer, POA Wound care consult is not able to assess the patient currently Currently on total parenteral nutrition ATTESTATION BY PHYSICIAN I have seen and examined the patient. I reviewed the documentation, medical decision making, and treatment plan as noted by the resident above. I agree with the findings and plan of care. Catarino Cornejo MD, PRIYANKA MD Jun 24, 2024 11:56
[2024-06-24] MEDS ORDERED: ALBUMIN (HUMAN) 5% 250 ML IV SCH (12:00)
[2024-06-24] MEDS ORDERED: PHARMACY COMMUNICATION 1 EACH EACH MISC SCH (14:00)
[2024-06-24] MEDS: LACTATED RINGERS 1000ML 1,000 ML IV ONE (15:14)
--- NOTE | 2024-06-24 16:36 | PN ---
[facility] PROGRESS NOTE Date Patient Seen: Jun 24, 2024 Time of Visit: 16:34 Supervising Physician: Dr. Dias Consulting Physician: [facility] Outpatient Specialists: [ ] Inpatient Consults: [ ] PROBLEM LIST: Acute hypoxic Respiratory failure POA Acute encephalopathy, in the setting of severe sepsis POA Acute bowel perforation with subsequent peritonitis s/p exploratory laparotomy 06/23/24 Dr. Valenzuela POA Shock etiology sepsis POA Urinary tract infection, POA E-coli multisensitive Acute kidney injury, POA Lactic acidosis, POA Chronic debility, POA DM type 2, POA GERD, POA History small-bowel obstruction History of fibromyalgia History of hypertension, now hypotensive in the setting of septic shock versus hemorrhagic shock INTERVAL HISTORY: 06/24/2023: At the time of my evaluation the patient was lying in bed. She was recently on exploratory laparotomy by Dr. Valenzuela and is critically ill [facility]. The patient remains sedated on Diprivan, RASS score of -4. intubated and on mechanical ventilator support for respiratory management. Patient is currently on ACVC mode with FiO2 40%, total volume of 450, peep of 5 and rate of 14 Initially, on the monitor was unable to obtain a blood pressure reading. The patient was tachycardic in the 160. Chemistry panel showed a sodium of 140, potassium of 3.9, chloride 107, CO2 of 13, BUN 22, creatinine of 1.9, blood glucose of 52, Mag one 0.50 a lactic acid of 8.6. Patient has a cumulative balance of positive 269. CBC showed a WBC of 37.4, H&H 10.1/29.6 and a platelet count of 575. Patient currently on cefepime and fluconazole for antibiotic coverage. No other complaint. 06/24/2024: At the time of my evaluation, the patient was lying in bed. She remains sedated with Versed and fentanyl, RASS scale of -5. The patient remains intubated and mechanically vented. On labs, WBC count improved from 31.5-26.7, H&H 11.2/32.4 and a platelet count of 312. Chemistry panel was notable for a BUN of 25, creatinine of 2.0 and a GFR of 26. Lactic acid is improving, today 7.0 and magnesium count of 1.80. Microbiology data showed positive E coli in urine multi sensitive. Anaerobic culture of peritoneal fluid showing no anaerobes and respiratory culture Gram stain showing Gram-negative rods. Patient is currently on antibiotic therapy with ceftazidime, linezolid and fluconazole. No other complaint. REVIEW OF SYSTEMS: Unable to obtain due to alteration in mental status PHYSICAL EXAM: GENERAL: Encephalopathic, looks pale HEENT: EOMI, Sclera non icteric, moist mucosa NECK: Supple, no JVD, trachea midline LUNGS: Diminished bibasilar air. No wheezes HEART: Sinus tach on the monitor. Normal S1 and S2, without murmurs ABD: Abdomen is distended and tender to palpate. Bowel sounds present EXT: No clubbing cyanosis or edema NEURO: Encephalopathic Vital Signs (last 8hr) Date Time Temp Pulse Resp B/P (MAP) Pulse Ox O2 Delivery O2 Flow Rate FiO2 06/24/24 16:00 97 Ventilator+ 30 06/24/24 15:23 102 30 06/24/24 15:05 105 14 97 100/54 (69) 06/24/24 14:50 104 14 97 103/55 (71) 06/24/24 14:35 102 14 97 106/56 (73) 06/24/24 14:20 99 14 97 106/56 (73) 06/24/24 14:05 98 14 97 112/60 (77) 06/24/24 13:50 96 14 96 115/61 (79) 06/24/24 13:35 97 14 97 129/69 (89) 06/24/24 13:20 96 14 91 112/61 (78) 06/24/24 13:05 96 14 97 115/63 (80) 06/24/24 12:50 95 14 114/63 (80) 06/24/24 12:35 95 14 97 115/63 (80) 06/24/24 12:20 96 14 97 116/63 (80) 06/24/24 12:04 98.1 96 14 97 117/64 (81) 06/24/24 12:04 96 30 06/24/24 12:00 97 Ventilator+ 30 06/24/24 11:49 96 14 97 116/63 (80) 06/24/24 11:34 96 14 97 116/63 (80) 06/24/24 11:19 96 14 97 119/65 (83) 06/24/24 11:04 96 14 97 119/65 (83) 06/24/24 10:49 97 14 97 119/65 (83) 06/24/24 10:33 97 14 97 30 121/66 (84) 06/24/24 10:18 97 14 97 30 121/66 (84) 06/24/24 10:03 98 14 98 30 123/67 (85) 06/24/24 09:48 98 14 98 30 129/71 (90) 06/24/24 09:33 98 14 100 30 144/80 (101) 06/24/24 09:18 95 14 98 30 123/68 (86) 06/24/24 09:06 96 30 06/24/24 09:02 95 14 98 30 127/71 (89) 06/24/24 08:47 96 14 98 30 131/73 (92) LABS: Hematology Labs: Test 06/24/24 03:12 06/22/24 17:36 Range/Units White Blood Count 26.7 H 4.8-10.8 K/uL Red Blood Count 3.72 #L 4.00-5.50 MIL/uL Hemoglobin 11.2 #L 12.0-16.0 g/dL Hematocrit 32.4 #L 36-48 % Mean Corpuscular Volume 87.1 79-99 fL Mean Corpuscular Hemoglobin 30.1 27.0-33.0 pg Mean Corpuscular Hemoglobin Concent 34.6 32.0-36.0 g/dL Red Cell Distribution Width 15.9 H 11.0-15.5 % Platelet Count 312 130-400 K/uL Mean Platelet Volume 8.9 7.5-10.5 fL Immature Granulocyte % (Auto) 15.3 H 0-1 % Neutrophils (%) (Auto) 73.4 40.0-77.0 % Lymphocytes (%) (Auto) 8.9 L 21.0-51.0 % Monocytes (%) (Auto) 2.3 L 3.0-13.0 % Eosinophils (%) (Auto) 0.0 0.0-8.0 % Basophils (%) (Auto) 0.1 0.0-5.0 % Neutrophils # (Auto) 19.6 H 1.8-7.7 K/uL Lymphocytes # (Auto) 2.4 1.0-4.8 K/uL Monocytes # (Auto) 0.6 0.1-1.0 K/uL Eosinophils # (Auto) 0.01 0.00-0.70 K/uL Basophils # (Auto) 0.02 0.00-0.20 K/uL Absolute Immature Granulocyte (auto 4.07 H 0-1 K/uL Segmented Neutrophils % 82 H 40-70 % Lymphocytes % (Manual) 4 L 22-44 % Monocytes % (Manual) 9 2-9 % Metamyelocytes % 3 H 0-0 % Myelocytes % 1 H 0-0 % Nucleated Red Blood Cells 0.1 0.0-0.19 % Differential Comment MANUAL DIFFERENTIAL Reactive Lymphocytes 1 H 0-0 % White Cell Morphology Comment IMMATURE GRAN 1+ Platelet Morphology Comment ADEQUATE Red Blood Cell Morphology See comments Band Neutrophils % 73 H 0-2 % Chemistry Labs: Test 06/24/24 15:50 06/24/24 03:12 06/23/24 20:43 06/23/24 03:30 Range/Units Lactic Acid Level 6.4 H 0.8-2.5 mmol/L Sodium Level 138 136-145 mmol/L Potassium Level 3.6 3.5-5.1 mmol/L Chloride Level 103 101-111 mmol/L Carbon Dioxide Level 25 21-32 mmol/L Blood Urea Nitrogen 25 H 7-18 mg/dL Creatinine 2.0 H 0.5-1.0 mg/dL Glomerular Filtration Rate Calc 26 >90 mL/min Random Glucose 294 H 70-105 mg/dL Total Calcium 7.2 L 8.5-10.1 mg/dL Magnesium Level 1.80 1.80-2.40 mg/dL Whole Blood Glucose 203 H 70-110 MG/DL Hemoglobin A1c 5.3 4.0-6.0 % Estimated Average Glucose (eAG) 105 70-126 mg/dL Phosphorus Level 2.1 L 2.5-4.9 mg/dL Total Bilirubin 0.2 0.2-1.0 mg/dL Aspartate Amino Transf (AST/SGOT) 21 10-37 U/L Alanine Aminotransferase (ALT/SGPT) 9 L 12-78 U/L Alkaline Phosphatase 99 50-136 U/L Total Protein 3.3 L 6.0-8.3 g/dL Albumin 1.1 L 3.5-5.0 g/dL Thyroid Stimulating Hormone (TSH) 16.61 #H 0.36-3.74 uIU/mL Test 06/22/24 17:36 Range/Units Total Creatine Kinase 43 # 21-232 U/L Troponin I High Sensitivity 5 4-50 ng/L B-Type Natriuretic Peptide 119 H 0-100 pg/mL Procalcitonin 6.63 H 0.05-0.5 ng/mL Coagulation Labs: Test 06/23/24 14:00 Range/Units Activated Partial Thromboplast Time 128.2 *H 26.3-35.5 SEC DIAGNOSTICS / RADIOLOGY RESULTS: [ ] PLAN 06/24/2023: I am going to attempts arterial for better hemodynamic monitoring, if unsuccessful we will request the assistance of anesthesia who attempted the A-line the OR this a.m. but was unsuccessful. Will order IV fluid bolus with IV LR, we will order bicarb pushes X 6 amps. then drip at 125 mL per hour, we will start the patient on hydrocortisone 50 mg IV q.6 hours we will adjust antibiotic therapy with ceftazidime, Zyvox, fluconazole. We will replace magnesium deficit. We will continue to monitor the lactic acid trend. We will any nephrotoxic agents. We will repeat labs, chest x-ray and ABG in the a.m. and once her condition is stabilized we will attempt to wean off the vent. We will monitor the patient's progress and response to management. We will continue to provide general supportive care, GI and DVT prophylaxis. Further orders per attending MD and hospital course. 06/24/2024: For now, going to continue current management for the patient. She will remain sedated and mechanically vented. We are going to continue with bicarb drip, we will decrease the rate to 50 cc/hour in efforts of avoiding fluid volume overload. The patient will continue on antibiotic course with ceftazidime, linezolid and fluconazole. We will follow the recommendation of the Infectious Disease specialist. For nutrition support, the patient remains on TPN and we will run at 83 cc/hour this with added lipids Q other day. Per the general surgeon, the plan is for repeat surgical intervention this coming for abdominal wound closure and removal of the wound VAC. We will monitor the patient's progress and response to management. We will repeat covarrubias rveillance labs in the morning. We will continue to provide general supportive care, GI and DVT prophylaxis. Further orders per attending MD and hospital course. NEURO: Minimize central acting medications as possible. Fall Precautions. Well lighted room through the day and minimize interruptions through the night to prevent acute delirium. PULMONARY: Supplemental 02 as needed Titrate Fio2 to keep Spo2 > or = 90% DuoNebs and CPT as needed IS hourly while awake for pulmonary hygiene CARDIOVASCULAR: Follow hemodynamics. Titrate vasopressor to keep MAP >65 or systolic blood pressure >95mmHg DIPS: Levophed, Protonix LINES: Right upper arm PICC line GI & NUTRITION: NPO Aspirations precautions Prokinetic agents and laxatives as needed KIDNEYS & ELECTROLYTES: Strict monitoring of intake and output Daily weights Avoid nephrotoxic agents Monitor electrolytes and replace as needed Goal urine output of 30mL/hr or 0.5mL/kg/hr ENDOCRINE: Maintain blood glucose between 100-180 at all times. Insulin sliding scale for blood glucose management INFECTIOUS DISEASE: Trend temperature. Clarke-culture if febrile. Micro: [ ] Antibiotics: Cefepime HEMATOLOGY & COAGULATION: Monitor H&H. Keep Hgb > 7 Transfuse 1 unit of PRBC for Hgb < 7 Transfuse 1 pack of platelets of platelets < 20, 000 Watch for any signs and symptoms of bleeding SKIN: Pressure ulcer prevention per facility protocol Rehab: PT/OT Prophylaxis: GI: PPI drip DVT: Bilateral SCDs Code Status: Full Resuscitation Disposition: ICU Other: Total critical care time: 35 min JOSE SPENCER NP Jun 24, 2024 16:36 SERA PAL MD Jun 25, 2024 07:12
[2024-06-24 16:39] LABS: MAGNESIUM 2.1 mg/dL (1.80-2.40)
[2024-06-24] MEDS: INSULIN humuLIN R 100 UNIT/ML 3ML SQ SCH (17:26)
--- NOTE | 2024-06-24 18:04 | PN ---
INFECTIOUS DISEASE PROGRESS NOTE Date of Service: Jun 24, 2024 SUBJECTIVE: This is a 73-year-old female patient who was seen and examined at bedside in the ICU room 218. Patient is status post open exploratory laparotomy and is currently intubated and sedated. Patient is currently on two vasopressors. The final urine culture results came back positive for E coli and the abdominal wound cultures growing Gram-negative rods. Continues on ceftazidime, linezolid, fluconazole and metronidazole IV. No fever this morning, temperature is 98.1 and the WBC has trended down to 26.7 from 31.5 yesterday. Patient's was visiting at bedside and aware of Infectious Disease plan. We will continue to follow patient's care. PHYSICAL EXAM EYES: Anicteric. Pupils equal and reactive. HENT: No oral thrush seen, moist Oral mucosa. NECK: Supple, no JVD or thyromegaly. LUNGS: Good air entry. No rales, no rhonchi. Mechanical ventilation. CARDIOVASCULAR: S1, S2 regular. No murmur heard. ABDOMEN: Soft, non tender, bowel sounds present, no organomegaly. Open surgical incision with a wound VAC. CENTRAL NERVOUS SYSTEM: Intubated and sedated. SKIN: No rashes, no swelling. LYMPHATICS: No peripheral lymphadenopathy. MUSCULOSKELETAL: No joint swelling, erythema or tenderness. EXTREMITIES: No cyanosis or clubbing. BACK: No deformity, no pressure ulcer. GENITOURINARY: No dysuria or hematuria. Hearn catheter. Vital Sign (Last 12 Hours) 06/24/24 06/24/24 06/24/24 06/24/24 06:00 06:15 06:23 06:31 Pulse 97 95 96 94 Resp 14 14 15 B/P (MAP) 138/81 (100) 139/82 (101) 140/83 (102) Pulse Ox 99 99 99 FiO2 30 30 06/24/24 06/24/24 06/24/24 06/24/24 06:45 06:46 07:00 07:01 Temp 97.2 97.2 Pulse 93 92 93 92 Resp 14 14 14 14 B/P (MAP) 140/82 140/82 139/81 (100) 139/81 (100) Pulse Ox 98 99 98 98 O2 Delivery Ventilator Ventilator FiO2 30 30 30 30 06/24/24 06/24/24 06/24/24 06/24/24 07:15 07:16 07:30 07:31 Pulse 93 92 92 92 Resp 14 14 14 14 B/P (MAP) 137/80 136/79 138/80 (99) 135/79 (97) Pulse Ox 98 98 98 98 O2 Delivery Ventilator Ventilator FiO2 30 30 30 30 06/24/24 06/24/24 06/24/24 06/24/24 07:45 07:46 08:00 08:00 Pulse 93 93 93 Resp 14 14 14 B/P (MAP) 136/79 132/76 136/79 (98) Pulse Ox 98 98 98 98 O2 Delivery Ventilator Ventilator+ Ventilator FiO2 30 30 30 30 06/24/24 06/24/24 06/24/24 06/24/24 08:01 08:15 08:16 08:30 Pulse 93 94 93 93 Resp 14 14 14 14 B/P (MAP) 132/75 130/73 132/76 (94) 131/74 (93) Pulse Ox 98 98 98 98 O2 Delivery Ventilator Ventilator FiO2 30 30 30 30 06/24/24 06/24/24 06/24/24 06/24/24 08:31 08:47 09:02 09:06 Pulse 95 96 95 96 Resp 14 14 14 B/P (MAP) 132/74 (93) 131/73 (92) 127/71 (89) Pulse Ox 98 98 98 FiO2 30 30 30 30 06/24/24 06/24/24 06/24/24 06/24/24 09:18 09:33 09:48 10:03 Pulse 95 98 98 98 Resp 14 14 14 14 B/P (MAP) 123/68 (86) 144/80 (101) 129/71 (90) 123/67 (85) Pulse Ox 98 100 98 98 FiO2 30 30 30 30 06/24/24 06/24/24 06/24/24 06/24/24 10:18 10:33 10:49 11:04 Pulse 97 97 97 96 Resp 14 14 14 14 B/P (MAP) 121/66 (84) 121/66 (84) 119/65 (83) 119/65 (83) Pulse Ox 97 97 97 97 FiO2 30 30 06/24/24 06/24/24 06/24/24 06/24/24 11:19 11:34 11:49 12:00 Pulse 96 96 96 Resp 14 14 14 B/P (MAP) 119/65 (83) 116/63 (80) 116/63 (80) Pulse Ox 97 97 97 97 O2 Delivery Ventilator+ FiO2 30 06/24/24 06/24/24 06/24/24 06/24/24 12:04 12:04 12:20 12:35 Temp 98.1 Pulse 96 96 96 95 Resp 14 14 14 B/P (MAP) 117/64 (81) 116/63 (80) 115/63 (80) Pulse Ox 97 97 97 FiO2 30 06/24/24 06/24/24 06/24/24 06/24/24 12:50 13:05 13:20 13:35 Pulse 95 96 96 97 Resp 14 14 14 14 B/P (MAP) 114/63 (80) 115/63 (80) 112/61 (78) 129/69 (89) Pulse Ox 97 91 97 06/24/24 06/24/24 06/24/24 06/24/24 13:50 14:05 14:20 14:35 Pulse 96 98 99 102 Resp 14 14 14 14 B/P (MAP) 115/61 (79) 112/60 (77) 106/56 (73) 106/56 (73) Pulse Ox 96 97 97 97 06/24/24 06/24/24 06/24/24 06/24/24 14:50 15:05 15:21 15:23 Pulse 104 105 105 102 Resp 14 14 14 B/P (MAP) 103/55 (71) 100/54 (69) 101/55 (70) Pulse Ox 97 97 97 FiO2 30 06/24/24 06/24/24 06/24/24 06/24/24 15:36 15:51 16:00 16:06 Pulse 104 100 97 Resp 14 14 14 B/P (MAP) 96/53 (67) 86/51 (63) 91/52 (65) Pulse Ox 97 96 97 96 O2 Delivery Ventilator+ FiO2 30 06/24/24 16:21 Pulse 93 Resp 14 B/P (MAP) 99/57 (71) Pulse Ox 96 Intake & Output (last 24hrs) 06/23/24 06/23/24 06/24/24 15:00 23:00 07:00 Intake Total 3279.5 ml 3687.9 ml 1956.6 ml Output Total 40 ml 625 ml Balance 3239.5 ml 3062.9 ml 1956.6 ml LABS: Laboratory: Test 06/24/24 17:18 06/24/24 15:50 06/24/24 03:12 06/23/24 14:00 Range/Units Whole Blood Glucose 280 H 70-110 MG/DL Potassium Level 5.0 3.5-5.1 mmol/L Lactic Acid Level 6.4 H 0.8-2.5 mmol/L Magnesium Level 2.10 1.80-2.40 mg/dL White Blood Count 26.7 H 4.8-10.8 K/uL Red Blood Count 3.72 #L 4.00-5.50 MIL/uL Hemoglobin 11.2 #L 12.0-16.0 g/dL Hematocrit 32.4 #L 36-48 % Mean Corpuscular Volume 87.1 79-99 fL Mean Corpuscular Hemoglobin 30.1 27.0-33.0 pg Mean Corpuscular Hemoglobin Concent 34.6 32.0-36.0 g/dL Red Cell Distribution Width 15.9 H 11.0-15.5 % Platelet Count 312 130-400 K/uL Mean Platelet Volume 8.9 7.5-10.5 fL Immature Granulocyte % (Auto) 15.3 H 0-1 % Neutrophils (%) (Auto) 73.4 40.0-77.0 % Lymphocytes (%) (Auto) 8.9 L 21.0-51.0 % Monocytes (%) (Auto) 2.3 L 3.0-13.0 % Eosinophils (%) (Auto) 0.0 0.0-8.0 % Basophils (%) (Auto) 0.1 0.0-5.0 % Neutrophils # (Auto) 19.6 H 1.8-7.7 K/uL Lymphocytes # (Auto) 2.4 1.0-4.8 K/uL Monocytes # (Auto) 0.6 0.1-1.0 K/uL Eosinophils # (Auto) 0.01 0.00-0.70 K/uL Basophils # (Auto) 0.02 0.00-0.20 K/uL Absolute Immature Granulocyte (auto 4.07 H 0-1 K/uL Segmented Neutrophils % 82 H 40-70 % Lymphocytes % (Manual) 4 L 22-44 % Monocytes % (Manual) 9 2-9 % Metamyelocytes % 3 H 0-0 % Myelocytes % 1 H 0-0 % Nucleated Red Blood Cells 0.1 0.0-0.19 % Differential Comment MANUAL DIFFERENTIAL Reactive Lymphocytes 1 H 0-0 % White Cell Morphology Comment IMMATURE GRAN 1+ Platelet Morphology Comment ADEQUATE Red Blood Cell Morphology See comments Sodium Level 138 136-145 mmol/L Chloride Level 103 101-111 mmol/L Carbon Dioxide Level 25 21-32 mmol/L Blood Urea Nitrogen 25 H 7-18 mg/dL Creatinine 2.0 H 0.5-1.0 mg/dL Glomerular Filtration Rate Calc 26 >90 mL/min Random Glucose 294 H 70-105 mg/dL Total Calcium 7.2 L 8.5-10.1 mg/dL Activated Partial Thromboplast Time 128.2 *H 26.3-35.5 SEC Test 06/23/24 12:24 06/23/24 03:30 06/22/24 22:22 06/22/24 20:15 Range/Units Blood Gas Specimen Type Arterial Arterial Blood pH 7.430 7.350-7.450 Arterial Blood Partial Pressure CO2 31 L 32-45 mmHg Arterial Blood Partial Pressure O2 122.0 H 83.0-108.0 mmHg Arterial Blood HCO3 19.9 L 21.0-28.0 mmol/L Arterial Blood Oxygen Saturation 97.8 94.0-98.0 % Arterial Blood Base Excess -3.7 L -2.0-3.0 mmol/L Hemoglobin (Blood Gas) 8.8 L 12.0-16.0 g/dL Sodium (Blood Gas) 141 136-145 MMOL/L Bedside Potassium (Blood Gas) 3.3 L 3.4-4.5 MMOL/L Bedside Chloride (Blood Gas) 107 98-107 MMOL/L Bedside Glucose (Blood Gas) 96 H 65-95 MG/DL Bedside Ionized Calcium (Blood Gas) 1.07 L 1.15-1.33 MMOL/L Bedside Lactic Acid (Blood Gas) 9.60 *H 0.36-0.75 MMOL/L Blood Gas Temperature 37.0 35.5-37.0 CELSIUS Blood Gas Respiration Rate 14.0 min. Blood Gas Vent Mode AC ROOM AIR FiO2 30.0 % Blood Gas Tidal Volume 450 ml Blood Gas PEEP 5 cm H2O Blood Gas Specimen Comment TORI, DARRIUS,TRUDI Hemoglobin A1c 5.3 4.0-6.0 % Estimated Average Glucose (eAG) 105 70-126 mg/dL Phosphorus Level 2.1 L 2.5-4.9 mg/dL Total Bilirubin 0.2 0.2-1.0 mg/dL Aspartate Amino Transf (AST/SGOT) 21 10-37 U/L Alanine Aminotransferase (ALT/SGPT) 9 L 12-78 U/L Alkaline Phosphatase 99 50-136 U/L Total Protein 3.3 L 6.0-8.3 g/dL Albumin 1.1 L 3.5-5.0 g/dL Thyroid Stimulating Hormone (TSH) 16.61 #H 0.36-3.74 uIU/mL Influenza Type A Antigen Negative For Type A NEGATIVE Influenza Type B Antigen Negative For Type B NEGATIVE SARS-CoV-2, RNA, NAAT NEGATIVE SARS CoV-2 NEGATIVE Blood Gas Flow-by 4.00 0.00-15.00 L/min Test 06/22/24 20:11 Range/Units Urine Color YELLOW YELLOW Urine Appearance CLOUDY H CLEAR Urine pH 5.0 5.0-8.0 Urine Specific [place] 1.016 1.001-1.031 Urine Protein 20 H NEGATIVE mg/dL Urine Glucose (UA) NEGATIVE NEGATIVE mg/dL Urine Ketones NEGATIVE NEGATIVE mg/dL Urine Occult Blood NEGATIVE NEGATIVE Urine Nitrate 1+ H NEGATIVE Urine Bilirubin NEGATIVE NEGATIVE mg/dL Urine Urobilinogen 0.2 0.2-1.0 mg/dL Urine Leukocyte Esterase 25 H NEGATIVE Marley/uL Urine RBC 2-5 H 0-1 /HPF Urine WBC 11-25 H 0-1 /HPF Urine Squamous Epithelial Cells RARE 0-2 /HPF Urine Bacteria RARE None Seen /HPF Urine Other Casts 2 None Seen /LPF DIAGNOSTICS / RADIOLOGY: PATIENT: JOSÉ MIGUEL OSORIO ACCT: [id number] LOC: [facility] U: [id number] AGE/SX: 73/F ROOM: 218 RE06/22/[address]: MARCO JOLYL MD : 1950 BED: 1 DIS: STATUS: ADM IN TLOC: SPEC: [id number] SKYLA: 06/22/24 STATUS: COMP REQ: [id number] RECD: 06/23/[address]: BRAYDON ANDRE DO SOURCE: URINE CATH ENTR: 06/23/[address] [facility] [address]: MAMIE RODRIGUEZ MD [facility]: CATHERIZED ORDERED: AERO ID & SENS Procedure Result Ann Date-Time AEROBIC ID & SENSITIVITIES Final 06/24/24-32 MRL COLONY DESCRIPTION: DAY 1: COLONY COUNT: >100,000 CFU/ML GRAM NEGATIVE RODS IDENTIFICATION AND SENSITIVITY TO FOLLOW ESCHERICHIA COLI E COLI M.I.C. RX --------- ---- AMPICILLIN >16 R AZTREONAM <=4 S CEFAZOLIN 8 R CEFTAZIDIME <=1 S CEFTAZIDIME/AVIBACTAM <=8 S CEFTRIAXONE 2 I GENTAMICIN <=2 S LEVOFLOXACIN <=0.5 S NITROFURANTOIN <=32 S MEROPENEM <=1 S PIPERACILLIN/TAZOBACTAM <=8 S TRIMETHOPRIM/SUFLAMETHOXAZOLE <=2/38 S ASSESSMENT: Nontraumatic intestinal perforation, status post exploratory laparotomy. Generalized peritonitis. Septic shock. Leukocytosis. Urinary tract infection with E coli. Acute on chronic renal failure PLAN: Continues on ceftazidime. Continue on linezolid. Continue on fluconazole. Continue on metronidazole IV. Continue GI prophylaxis. Continue critical care support. Continue vasopressor support. Continue mechanical ventilation. Follow up on the final culture results. Will avoid nephrotoxic medications. This case was reviewed and discussed with my supervising physician and the above assessment and plan was formulated and agreed upon. ATTESTATION BY PHYSICIAN I have seen and examined the patient. I reviewed the documentation, medical decision making, and treatment plan as noted by the mid-level provider above. I agree with the findings and plan of care. GOSIA INIGUEZ MD, MIRTA L [facility] Jun 24, 2024 18:04
--- NOTE | 2024-06-24 19:22 | NUR ---
per Dr. Bianca radford to give AM lovenox on 06/25/24
[2024-06-24] MEDS: M.V.I. IV [ADULT] 10 ML in CLINIMIX-E 5%AA /D15%W 2000ML 2,000 ML IV ONE (19:34)
[2024-06-24] MEDS: ARTIFICAL TEARS SOL 15 ML OU SCH (21:58)
[2024-06-25] VITALS (95 sets, daily range): BP systolic 97–152; BP diastolic 57–135; PULSE 69–82; RESP 14; TEMP 97.7–99; O2SAT 97–98
[2024-06-25 04:26] LABS: BASOPHILS # (AUTO) 0.01 K/uL (0.00-0.20); BASOPHILS % (AUTO) 0.1 % (0.0-5.0); HEMATOCRIT 28.5 % (36-48); IMMATURE GRANULOCYTE ABSOLUTE 0.17 K/uL (0-1); LYMPHOCYTES # (AUTO) 0.7 K/uL (1.0-4.8); LYMPHOCYTES % (AUTO) 6.6 % (21.0-51.0); MEAN CORPUSCULAR HGB CONC 36.1 g/dL (32.0-36.0); MEAN CORPUSCULAR VOLUME 85.8 fL (79-99); MONOCYTES # (AUTO) 0.2 K/uL (0.1-1.0); MONOCYTES % (AUTO) 1.9 % (3.0-13.0); NEUTROPHILS # (AUTO) 10.1 K/uL (1.8-7.7); NEUTROPHILS % (AUTO) 89.9 % (40.0-77.0); NUCLEATED RED BLOOD CELLS 0.3 % (0.0-0.19); PLATELET COUNT (AUTO) 130 K/uL (130-400); RED BLOOD CELL COUNT(AUTO) 3.32 MIL/uL (4.00-5.50); RED CELL DISTRIBUTION WIDTH 15.4 % (11.0-15.5); WHITE BLOOD COUNT (AUTO) 11.2 K/uL (4.8-10.8)
[2024-06-25 04:50] LABS: CREATININE 1.5 mg/dL (0.5-1.0); POTASSIUM 3.6 mmol/L (3.5-5.1)
[2024-06-25] MEDS: INSULIN REGULAR, HUMAN 3ML 100 UNIT in 0.9%NACL 100ML 99 ML IV SCH (06:37)
[2024-06-25 08:27] LABS: ABG BASE EXCESS 2.5 mmol/L (-2.0-3.0); ABG HCO3 26.9 mmol/L (21.0-28.0); ABG OXYGEN SATURATION 96.4 % (94.0-98.0); ABG PCO2 41 mmHg (32-45); ABG PH 7.436 (7.350-7.450); CARBON MONOXIDE 0.3 % (0.5-1.5); DEVICE COMMENT ALINE; HHb 3.6; VENT MODE, BG AC RK RN (ROOM AIR)
--- NOTE | 2024-06-25 12:13 | PN ---
INFECTIOUS DISEASE PROGRESS NOTE Date of Service: Jun 25, 2024 SUBJECTIVE: This is a 73-year-old female patient who was seen and examined at bedside in the ICU room 218. Today patient remains intubated and sedated. Patient is status post open exploratory laparotomy and is currently intubated and sedated and still on vasopressor support. The WBC continues trending down and is 11.2 today. No fever, temperature is 98.1. The peritoneal fluid culture results and the sputum culture results came back positive for E coli. Will continue on ceftazidime, linezolid, fluconazole and metronidazole IV. We will continue to follow patient's care. PHYSICAL EXAM EYES: Anicteric. Pupils equal and reactive. HENT: No oral thrush seen, moist Oral mucosa. NECK: Supple, no JVD or thyromegaly. LUNGS: Good air entry. No rales, no rhonchi. Mechanical ventilation. CARDIOVASCULAR: S1, S2 regular. No murmur heard. ABDOMEN: Soft, non tender, bowel sounds present, no organomegaly. Open surgical incision with a wound VAC. CENTRAL NERVOUS SYSTEM: Intubated and sedated. SKIN: No rashes, no swelling. LYMPHATICS: No peripheral lymphadenopathy. MUSCULOSKELETAL: No joint swelling, erythema or tenderness. EXTREMITIES: No cyanosis or clubbing. BACK: No deformity, no pressure ulcer. GENITOURINARY: No dysuria or hematuria. Hearn catheter. Vital Sign (Last 12 Hours) 06/25/24 06/25/24 06/25/24 06/25/24 00:15 00:30 00:33 00:45 Pulse 72 72 72 71 Resp 14 14 14 B/P (MAP) 138/78 (98) 137/77 (97) 140/79 (99) Pulse Ox 98 98 98 FiO2 30 06/25/24 06/25/24 06/25/24 06/25/24 01:00 01:15 01:30 01:45 Pulse 72 71 71 71 Resp 14 14 14 14 B/P (MAP) 132/76 (94) 121/70 (87) 115/67 (83) 130/74 (92) Pulse Ox 98 97 97 98 06/25/24 06/25/24 06/25/24 06/25/24 02:00 02:15 02:30 02:45 Pulse 70 71 70 69 Resp 14 14 14 14 B/P (MAP) 132/74 (93) 137/77 (97) 139/78 (98) 141/79 (99) Pulse Ox 98 98 98 98 06/25/24 06/25/24 06/25/24 06/25/24 03:00 03:15 03:30 03:41 Pulse 71 70 72 74 Resp 14 14 14 B/P (MAP) 142/79 (100) 141/79 (99) 129/73 (91) Pulse Ox 98 98 97 FiO2 30 06/25/24 06/25/24 06/25/24 06/25/24 03:45 03:46 04:00 04:15 Temp 97.7 Pulse 71 72 71 Resp 14 14 14 B/P (MAP) 123/70 (87) 152/135 (141) 124/71 (88) Pulse Ox 97 98 97 97 O2 Delivery Ventilator+ FiO2 30 06/25/24 06/25/24 06/25/24 06/25/24 04:30 04:45 05:00 05:15 Pulse 73 72 73 71 Resp 14 14 14 14 B/P (MAP) 129/74 (92) 132/75 (94) 137/78 (97) 136/77 (96) Pulse Ox 98 97 98 98 06/25/24 06/25/24 06/25/24 06/25/24 05:30 05:45 06:00 06:15 Pulse 71 72 71 73 Resp 14 14 14 14 B/P (MAP) 133/76 (95) 132/76 (94) 132/75 (94) 130/74 (92) Pulse Ox 98 98 98 98 06/25/24 06/25/24 06/25/24 06/25/24 06:29 06:30 06:45 07:00 Pulse 71 71 72 73 Resp 14 14 14 B/P (MAP) 128/73 (91) 124/70 (88) 118/66 (83) Pulse Ox 98 98 98 FiO2 30 06/25/24 06/25/24 06/25/24 06/25/24 07:15 07:30 07:30 07:45 Pulse 75 76 77 Resp 14 14 14 B/P (MAP) 111/63 (79) 100/57 (71) 103/59 (74) Pulse Ox 98 97 97 97 O2 Delivery Ventilator+ FiO2 30 06/25/24 06/25/24 06/25/246/25 08:00 08:15 08:30 08:45 Pulse 76 76 76 76 Resp 14 14 14 14 B/P (MAP) 104/59 (74) 104/59 (74) 103/59 (74) 104/59 (74) Pulse Ox 98 98 98 98 06/25/24 06/25/24 06/25/24 06/25/24 09:00 09:10 09:15 09:30 Pulse 75 79 75 75 Resp 14 14 14 B/P (MAP) 102/58 (73) 102/58 (73) 103/59 (74) Pulse Ox 98 97 97 FiO2 30 06/25/24 06/25/24 06/25/24 06/25/24 09:45 10:00 10:23 11:30 Temp 98.1 Pulse 75 75 Resp 14 14 B/P (MAP) 101/58 (72) 103/59 (74) Pulse Ox 98 98 98 O2 Delivery Ventilator+ FiO2 30 Intake & Output (last 24hrs) 06/24/24 06/24/24 06/25/24 15:00 23:00 07:00 Intake Total 2849.8 ml 1804.6 ml 2143.5 ml Output Total 1350 ml 1750 ml Balance 2849.8 ml 454.6 ml 393.5 ml LABS: Laboratory: Test 06/25/24 11:11 06/25/24 08:25 06/25/24 08:07 06/25/24 04:16 Range/Units Whole Blood Glucose 320 H 70-110 MG/DL Bedside Glucose Comment Notified Nurse Blood Gas Specimen Type Arterial Arterial Blood pH 7.436 7.350-7.450 Arterial Blood Partial Pressure CO2 41 32-45 mmHg Arterial Blood Partial Pressure O2 91.0 83.0-108.0 mmHg Arterial Blood HCO3 26.9 21.0-28.0 mmol/L Arterial Blood Oxygen Saturation 96.4 94.0-98.0 % Arterial Blood Base Excess 2.5 -2.0-3.0 mmol/L Hemoglobin (Blood Gas) 10.3 L 12.0-16.0 g/dL Sodium (Blood Gas) 131 L 136-145 MMOL/L Bedside Potassium (Blood Gas) 3.0 *L 3.4-4.5 MMOL/L Bedside Chloride (Blood Gas) 97 L 98-107 MMOL/L Bedside Glucose (Blood Gas) 385 H 65-95 MG/DL Bedside Ionized Calcium (Blood Gas) 1.04 L 1.15-1.33 MMOL/L Bedside Lactic Acid (Blood Gas) 3.30 *H 0.36-0.75 MMOL/L Blood Gas Temperature 37.0 35.5-37.0 CELSIUS Blood Gas Respiration Rate 14.0 min. Blood Gas Vent Mode AC RK RN ROOM AIR FiO2 30.0 % Blood Gas Tidal Volume 450 ml Blood Gas PEEP 5 cm H2O Blood Gas Specimen Comment KADE Lactic Acid Level 3.8 H 0.8-2.5 mmol/L White Blood Count 11.2 H 4.8-10.8 K/uL Red Blood Count 3.32 L 4.00-5.50 MIL/uL Hemoglobin 10.3 L 12.0-16.0 g/dL Hematocrit 28.5 L 36-48 % Mean Corpuscular Volume 85.8 79-99 fL Mean Corpuscular Hemoglobin 31.0 27.0-33.0 pg Mean Corpuscular Hemoglobin Concent 36.1 H 32.0-36.0 g/dL Red Cell Distribution Width 15.4 11.0-15.5 % Platelet Count 130 # 130-400 K/uL Mean Platelet Volume 9.0 7.5-10.5 fL Immature Granulocyte % (Auto) 1.5 H 0-1 % Neutrophils (%) (Auto) 89.9 H 40.0-77.0 % Lymphocytes (%) (Auto) 6.6 L 21.0-51.0 % Monocytes (%) (Auto) 1.9 L 3.0-13.0 % Eosinophils (%) (Auto) 0.0 0.0-8.0 % Basophils (%) (Auto) 0.1 0.0-5.0 % Neutrophils # (Auto) 10.1 H 1.8-7.7 K/uL Lymphocytes # (Auto) 0.7 L 1.0-4.8 K/uL Monocytes # (Auto) 0.2 0.1-1.0 K/uL Eosinophils # (Auto) 0.00 0.00-0.70 K/uL Basophils # (Auto) 0.01 0.00-0.20 K/uL Absolute Immature Granulocyte (auto 0.17 0-1 K/uL Nucleated Red Blood Cells 0.3 H 0.0-0.19 % Sodium Level 135 L 136-145 mmol/L Potassium Level 3.6 3.5-5.1 mmol/L Chloride Level 98 L 101-111 mmol/L Carbon Dioxide Level 31 21-32 mmol/L Blood Urea Nitrogen 26 H 7-18 mg/dL Creatinine 1.5 H 0.5-1.0 mg/dL Glomerular Filtration Rate Calc 37 >90 mL/min Random Glucose 443 *H 70-105 mg/dL Total Calcium 6.6 L 8.5-10.1 mg/dL Test 06/24/24 15:50 06/24/24 03:12 06/23/24 14:00 Range/Units Magnesium Level 2.10 1.80-2.40 mg/dL Segmented Neutrophils % 82 H 40-70 % Lymphocytes % (Manual) 4 L 22-44 % Monocytes % (Manual) 9 2-9 % Metamyelocytes % 3 H 0-0 % Myelocytes % 1 H 0-0 % Differential Comment MANUAL DIFFERENTIAL Reactive Lymphocytes 1 H 0-0 % White Cell Morphology Comment IMMATURE GRAN 1+ Platelet Morphology Comment ADEQUATE Red Blood Cell Morphology See comments Activated Partial Thromboplast Time 128.2 *H 26.3-35.5 [facility] / RADIOLOGY: PATIENT: JOSÉ MIGUEL OSORIO ACCT: [id number] LOC: [facility] U: [id number] AGE/SX: 73/F ROOM: [facility] RE06/22/[address]: MARCO JOLLY MD : 1950 BED: 1 DIS: STATUS: ADM IN TLOC: SPEC: [id number] SKYLA: 06/22/24 STATUS: COMP REQ: [id number] RECD: 06/23/[address] [facility] [address]: BRAYDON ANDRE DO SOURCE: URINE CATH ENTR: 06/23/24 [facility] DR: MAMIE RODRIGUEZ MD [facility]: CATHERIZED ORDERED: AERO ID & SENS Procedure Result Ann Date-Time AEROBIC ID & SENSITIVITIES Final 06/24/24-731 MRL COLONY DESCRIPTION: DAY 1: COLONY COUNT: >100,000 CFU/ML GRAM NEGATIVE RODS IDENTIFICATION AND SENSITIVITY TO FOLLOW ESCHERICHIA COLI E COLI M.I.C. RX --------- ---- AMPICILLIN >16 R AZTREONAM <=4 S CEFAZOLIN 8 R CEFTAZIDIME <=1 S CEFTAZIDIME/AVIBACTAM <=8 S CEFTRIAXONE 2 I GENTAMICIN <=2 S LEVOFLOXACIN <=0.5 S NITROFURANTOIN <=32 S MEROPENEM <=1 S PIPERACILLIN/TAZOBACTAM <=8 S TRIMETHOPRIM/SUFLAMETHOXAZOLE <=2/38 S ASSESSMENT: Nontraumatic intestinal perforation, status post exploratory laparotomy. Generalized peritonitis with E coli. Septic shock. Leukocytosis. Urinary tract infection with E coli. Acute on chronic renal failure PLAN: Continues on ceftazidime. Continue on linezolid. Continue on fluconazole. Continue on metronidazole IV. Continue GI prophylaxis. Continue critical care support. Continue vasopressor support. Continue mechanical ventilation. Follow up on the final culture results. Avoid nephrotoxic medications. This case was reviewed and discussed with my supervising physician and the above assessment and plan was formulated and agreed upon. ATTESTATION BY PHYSICIAN I have seen and examined the patient. I reviewed the documentation, medical decision making, and treatment plan as noted by the mid-level provider above. I agree with the findings and plan of care. GOSIA INIGUEZ MD, [facility]TA [facility] Jun 25, 2024 12:12
--- NOTE | 2024-06-25 12:47 | NUR ---
[facility] Follow-up: Patient re-assessed by wound healing team. See wound assessment. Assessment and recommendations provided to primary nurse. Education provided. Wound care done changed to jl, primary nurse Miquel vick. Addendum: 06/25/24 at 1411 by TRUDI MACDONALD Amended: Links added. Addendum: 06/25/24 at 1439 by FOX BATEMAN RN RN/CORONA Abdominal wound open with foam dressing with surgical drape over foam and wound. Surgical drape dressing left in place, black foam placed on top and secured with wound vac drape.
--- NOTE | 2024-06-25 13:56 | NUR ---
[facility] Follow-up: Unable to assess sacral wound at this time due to patient hemodynamically unstable at this time. Addendum: 06/25/24 at 1357 by FOX BATEMAN RN RN/CORONA Amended: Links added.
[2024-06-25] MEDS: furoSEMIDE 20MG VIAL IV STA (16:11)
--- NOTE | 2024-06-25 17:09 | HMCIMG ---
FRONTAL CHEST RADIOGRAPH INDICATION: Endotracheal intubation COMPARISON: 06/24/2024 FINDINGS/IMPRESSION: feed research aide leads overlie the field of view. Stable right PICC, endotracheal tube, and NG tube. Stable normal heart size without pulmonary vascular congestion. Unchanged bibasilar lung atelectasis, without pneumothorax.
[2024-06-25] MEDS: PHARMACY COMMUNICATION MISC STA (17:11)
--- NOTE | 2024-06-25 17:15 | NUR ---
Md Valenzuela at bedside/rounding. New orders received by MD at bedside. patient to have wound closure tomorrow, obtain consent. Lasix 20mg q8h x8 doses.
--- NOTE | 2024-06-25 17:30 | PN ---
[facility] PROGRESS NOTE Date of Service: Jun 25, 2024 Time of Service: 17:06 SUBJECTIVE: Ms. Chandler is a 73-year-old female, with a past medical history of hypertension, hypothyroidism, DM, anemia, fibromyalgia, recurrent SpO2 is, chronic left hip pain, cervical CA presented to the ER with the complaints of sharp CBC left lower quadrant abdominal pain with nausea and vomiting since 2 days. Initial vitals blood pressure 62/50 which improved on Levophed. Initial labs WBCs 26.3, lactic acid 6.7. CT abdomen/pelvis resulted in Large amount of free abdominal air is seen concerning for bowel perforation. Surgery consult was obtained. 06/23/2024 postop patient is seen and examined at the bedside. She is sedated on Diprivan and intubated. She underwent exploratory laparotomy 06/23/24 Dr. Valenzuela for perforated small bowel and subsequent peritonitis this morning. Vitals blood pressure 104/58, heart rate 146 on Phenylephrine and vasopressin. Labs WBC 37.4, BUN 2 , creatinine 1.7, magnesium 0.90, TSH 16.6. Lactic acid improved from 7.7- 5. Urinalysis positive for leukocyte esterase. Chest x-ray revealed prominent bilateral interstitial markings. 06/24/2024 Patient is seen at the bedside. She is currently sedated on fentanyl and midazolam. Vitals blood pressure 131/72 on vasopressin. Currently intubated with VT 450, peep 5 and respiratory rate 14. Labs WBC improved from 31.5-26.7, hemoglobin 11.2, BUN 25 , creatinine 2 , lactic acid 10.3. Urine culture resulted in E coli. 06/25/2024 Patient is seen at the bedside. She remains intubated and sedated on fentanyl and midazolam. Vitals blood pressure in 110s/60s. Labs WBC improved from 26.7-11.2, hemoglobin 10.3, BUN 26, creatinine improved from 2-1.5, lactic acid improved from 4.5-3.5. Urine culture, respiratory culture and abdominal site culture resulted in E coli organism. REVIEW OF SYSTEMS: Not able to get a proper history as the patient is sedated CONSTITUTIONAL: Denies fevers, chills, or night sweats. No unintentional weight loss reported. NEUROLOGICAL: Denies headache, amaurosis fugax, motor weakness, sensory deficit, vertigo/spinning sensation, gait abnormalities, or tremors. ENT: No hearing loss, otalgia, otorrhea, rhinitis, rhinorrhea, hoarseness, or sore throat. CARDIOVASCULAR: Denies any exertional angina, dyspnea on exertion, orthopnea, paroxysmal nocturnal dyspnea, palpitations, life-threatening arrhythmias, claudication. PULMONARY: Denies any shortness of breath, cough, phlegm/sputum, hemoptysis, pleuritic chest pain. SLEEP: Denies morning headaches, daytime somnolence or napping. Denies difficulty falling asleep, staying asleep, waking from sleep. Denies knowledge of snoring. GASTROINTESTINAL: Denies any type of dysphagia to either liquids or solids. Denies nausea, vomiting, pyrosis, early satiety, abdominal pain, diarrhea, constipation, or changes in stool consistency or caliber. Denies coffee-ground emesis, hematemesis, hematochezia, or melanotic stools. GENITOURINARY: Denies frequency, urgency, nocturia, hematuria or incontinence (Storage/Irritative symptoms.) Low urinary stream, straining to void, urinary intermittency or hesitancy, splitting of the voiding stream, terminal dribbling. ENDOCRINOLOGIC: Denies polyuria, polydipsia, polyphagia or heat/cold intolerances. HEMATOLOGIC: Denies thrombophilia/previous clots, or coagulopathy/bleeding disorders. ONCOLOGIC: Denies personal history of malignancy. DERMATOLOGIC: Denies rashes or pruritus. PSYCHIATRIC: Denies any suicidal or homicidal ideation. Denies hallucinations. PHYSICAL EXAM GENERAL APPEARANCE: The patient is sedated NEUROLOGICAL: Cranial nerves II-XII grossly intact. Motor is 5/5 in bilateral upper and lower extremities proximal to distal. No sensory deficits. HEENT: Face is symmetric. Pupils are equal and reactive. Extraocular movements are intact. NECK: Supple. No JVD. No thyromegaly. No submental, submandibular, pre- /postauricular, occipital or supraclavicular lymphadenopathy. CHEST: Normal chest expansion. No Telemetry. LUNGS: Absence of any rales, rhonchi or any wheezing. CARDIOVASCULAR: Regular. S1 and S2 normal. No appreciable rubs, murmurs or gallops. ABDOMEN: Soft, nontender, and nondistended. There is no rebound, voluntary guarding, or rigidity. : Deferred. No Hearn. EXTREMITIES: Non-edematous and not cyanotic. No clubbing. Good capillary refill. SKIN: No skin breakdown. Vital Signs (last 8hr) Date Time Temp Pulse Resp B/P (MAP) Pulse Ox O2 Delivery O2 Flow Rate FiO2 06/25/24 16:20 98.1 06/25/24 16:15 98 Ventilator+ 30 06/25/24 16:00 77 14 98 30 118/65 (82) 06/25/24 15:45 76 14 98 30 115/64 (81) 06/25/24 15:30 77 14 98 30 112/63 (79) 06/25/24 15:29 79 30 06/25/24 15:15 75 14 98 30 103/59 (74) 06/25/24 15:00 77 14 98 101/58 (72) 06/25/24 14:30 77 14 97 103/59 (74) 06/25/24 14:00 77 14 97 103/58 (73) 06/25/24 13:30 77 14 97 104/59 (74) 06/25/24 13:00 75 14 98 119/66 (83) 06/25/24 12:30 81 14 98 97/70 (79) 06/25/24 12:09 82 30 06/25/24 12:00 82 14 98 107/60 (76) 06/25/24 11:30 75 14 97 102/58 (73) 06/25/24 11:30 98 Ventilator+ 30 06/25/24 11:00 75 14 98 102/58 (73) 06/25/24 10:23 98.1 06/25/24 10:00 75 14 98 103/59 (74) 06/25/24 09:45 75 14 98 101/58 (72) 06/25/24 09:30 75 14 97 103/59 (74) 06/25/24 09:15 75 14 97 102/58 (73) 06/25/24 09:10 79 30 LABS: Laboratory: Test 06/25/24 16:04 06/25/24 11:11 06/25/24 08:25 06/25/24 08:07 Range/Units Whole Blood Glucose 248 H 70-110 MG/DL Bedside Glucose Comment Notified Nurse Blood Gas Specimen Type Arterial Arterial Blood pH 7.436 7.350-7.450 Arterial Blood Partial Pressure CO2 41 32-45 mmHg Arterial Blood Partial Pressure O2 91.0 83.0-108.0 mmHg Arterial Blood HCO3 26.9 21.0-28.0 mmol/L Arterial Blood Oxygen Saturation 96.4 94.0-98.0 % Arterial Blood Base Excess 2.5 -2.0-3.0 mmol/L Hemoglobin (Blood Gas) 10.3 L 12.0-16.0 g/dL Sodium (Blood Gas) 131 L 136-145 MMOL/L Bedside Potassium (Blood Gas) 3.0 *L 3.4-4.5 MMOL/L Bedside Chloride (Blood Gas) 97 L 98-107 MMOL/L Bedside Glucose (Blood Gas) 385 H 65-95 MG/DL Bedside Ionized Calcium (Blood Gas) 1.04 L 1.15-1.33 MMOL/L Bedside Lactic Acid (Blood Gas) 3.30 *H 0.36-0.75 MMOL/L Blood Gas Temperature 37.0 35.5-37.0 CELSIUS Blood Gas Respiration Rate 14.0 min. Blood Gas Vent Mode AC RK RN ROOM AIR FiO2 30.0 % Blood Gas Tidal Volume 450 ml Blood Gas PEEP 5 cm H2O Blood Gas Specimen Comment KADE Lactic Acid Level 3.8 H 0.8-2.5 mmol/L Test 06/25/24 04:16 06/24/24 15:50 06/24/24 03:12 Range/Units White Blood Count 11.2 H 4.8-10.8 K/uL Red Blood Count 3.32 L 4.00-5.50 MIL/uL Hemoglobin 10.3 L 12.0-16.0 g/dL Hematocrit 28.5 L 36-48 % Mean Corpuscular Volume 85.8 79-99 fL Mean Corpuscular Hemoglobin 31.0 27.0-33.0 pg Mean Corpuscular Hemoglobin Concent 36.1 H 32.0-36.0 g/dL Red Cell Distribution Width 15.4 11.0-15.5 % Platelet Count 130 # 130-400 K/uL Mean Platelet Volume 9.0 7.5-10.5 fL Immature Granulocyte % (Auto) 1.5 H 0-1 % Neutrophils (%) (Auto) 89.9 H 40.0-77.0 % Lymphocytes (%) (Auto) 6.6 L 21.0-51.0 % Monocytes (%) (Auto) 1.9 L 3.0-13.0 % Eosinophils (%) (Auto) 0.0 0.0-8.0 % Basophils (%) (Auto) 0.1 0.0-5.0 % Neutrophils # (Auto) 10.1 H 1.8-7.7 K/uL Lymphocytes # (Auto) 0.7 L 1.0-4.8 K/uL Monocytes # (Auto) 0.2 0.1-1.0 K/uL Eosinophils # (Auto) 0.00 0.00-0.70 K/uL Basophils # (Auto) 0.01 0.00-0.20 K/uL Absolute Immature Granulocyte (auto 0.17 0-1 K/uL Nucleated Red Blood Cells 0.3 H 0.0-0.19 % Sodium Level 135 L 136-145 mmol/L Potassium Level 3.6 3.5-5.1 mmol/L Chloride Level 98 L 101-111 mmol/L Carbon Dioxide Level 31 21-32 mmol/L Blood Urea Nitrogen 26 H 7-18 mg/dL Creatinine 1.5 H 0.5-1.0 mg/dL Glomerular Filtration Rate Calc 37 >90 mL/min Random Glucose 443 *H 70-105 mg/dL Total Calcium 6.6 L 8.5-10.1 mg/dL Magnesium Level 2.10 1.80-2.40 mg/dL Segmented Neutrophils % 82 H 40-70 % Lymphocytes % (Manual) 4 L 22-44 % Monocytes % (Manual) 9 2-9 % Metamyelocytes % 3 H 0-0 % Myelocytes % 1 H 0-0 % Differential Comment MANUAL DIFFERENTIAL Reactive Lymphocytes 1 H 0-0 % White Cell Morphology Comment IMMATURE GRAN 1+ Platelet Morphology Comment ADEQUATE Red Blood Cell Morphology See comments Current Medications Medications (Trade) Dose Ordered Sig/Dionisio Route PRN Reason Start Time Stop Time Status Last Admin Dose Admin Acetaminophen (TYLenol 325MG TAB) 650 mg Q4H PRN PO TEMPERATURE GREATER THAN 101.5 06/23/24 03:30 07/23/24 03:29 Acetaminophen (TYLenol 650MG SUPPOSITORY) 650 mg Q6H PRN RC MILD PAIN (1-3) 06/22/24 20:30 07/22/24 20:29 Albumin Human 100 ml @ 0 mls/hr Q6H6 IV 06/23/24 00:00 06/23/24 12:52 DC Albumin Human 250 ml @ 0 mls/hr AD IV 06/23/24 11:30 06/24/24 11:29 DC 06/24/24 13:26 400 MLS/HR Albumin Human 250 ml @ 0 mls/hr AD IV 06/24/24 12:00 06/24/24 13:21 DC Artificial Tears (Artificial Tears) 1 DROP BID OU 06/24/24 21:00 07/24/24 20:59 06/25/24 10:05 1 DROP Cefepime HCl (MAXipime 2 gm vial) 2 gm Q12H IVPB 06/22/24 21:00 06/23/24 03:25 DC 06/22/24 22:03 2 GM Cefepime HCl (MAXipime 2 gm vial) 2 gm Q24H IVPB 06/23/24 21:00 06/23/24 21:47 DC 06/23/24 21:15 2 GM Ceftazidime (ForTAZ/TAZidime) 1 gm Q24H IVPB 06/24/24 01:30 07/04/24 01:29 06/24/24 23:57 1 GM Enoxaparin Sodium (Lovenox) 30 mg DAILY SQ 06/23/24 09:00 07/23/24 08:59 06/25/24 07:35 30 MG Fat Emulsion Intravenous 250 ml @ 42 mls/hr DAILY10 IV 06/24/24 10:00 06/24/24 13:22 DC 06/24/24 10:07 42 MLS/HR Fat Emulsion Intravenous 250 ml @ 42 mls/hr QMOWEFR@1000 IV 06/26/24 10:00 07/24/24 09:59 Fentanyl Citrate 100 ml @ 2.5 mls/hr PROTOCOL IV 06/23/24 09:00 06/30/24 08:59 06/25/24 15:36 2.5 MLS/HR Fluconazole/ Sodium Chloride (DiFLUCan 200 MG/ NS 100 ML) 200 mg Q24H IVPB 06/23/24 03:30 07/23/24 03:29 06/25/24 04:04 200 MG Furosemide (LASix 20MG VIAL) 20 mg ONCE STAT IV 06/25/24 15:49 06/25/24 15:50 DC 06/25/24 16:11 20 MG Furosemide 100 mg/ Sodium Chloride 100 ml @ 0 mls/hr PROTOCOL IV 06/23/24 12:00 06/23/24 12:44 DC 06/23/24 11:37 5 MLS/HR Heparin Sodium (Porcine) (HEParin 5,000 UNIT VIAL) 5,000 unit BID SQ 06/22/24 21:00 06/22/24 20:48 DC Hydrocortisone Sodium Succinate (Solu-corTEF 100MG) 50 mg Q6H6 IV 06/23/24 09:00 07/23/24 08:59 06/25/24 11:21 50 MG Hydromorphone HCl (DiLAUDid 1MG INJ) 1 mg Q3H3 PRN IVP SEVERE PAIN (7-10) 06/23/24 03:30 06/28/24 03:29 Insulin Human Regular (humuLIN R 100 UNIT/ML 3ML) INSULIN SLIDING SCAL... ACHS SQ 06/22/24 21:00 06/24/24 15:37 DC 06/24/24 10:09 6 UNIT Insulin Human Regular (humuLIN R 100 UNIT/ML 3ML) INSULIN SLIDING SCAL... Q6H6 SQ 06/24/24 18:00 06/25/24 06:25 DC 06/24/24 23:32 7 UNIT Insulin Human Regular 100 unit/ Sodium Chloride 100 ml @ 0 mls/hr AD IV 06/25/24 06:30 07/02/24 06:29 06/25/24 06:37 12 MLS/HR Ketorolac Tromethamine (toRADol) 15 mg Q6H PRN IV MODERATE PAIN (4-6) 06/23/24 03:30 06/28/24 03:29 Lactated Ringer's 1,000 ml @ 125 mls/hr Q8H IV 06/22/24 20:30 06/23/24 12:44 DC 06/23/24 11:23 125 MLS/HR Lactated Ringer's (Lactated Ringers 1000ml) 500 ml BOLUS IV 06/23/24 05:30 06/24/24 13:22 DC Linezolid 300 ml @ 150 mls/hr Q12H IV 06/23/24 15:00 07/03/24 14:59 06/25/24 15:25 150 MLS/HR Magnesium Sulfate 50 ml @ 0 mls/hr PROTOCOL IV 06/23/24 04:30 07/23/24 04:29 06/24/24 05:07 25 MLS/HR Magnesium Sulfate (Magnesium 4gm Premix 100ml) 4 gm AD IV 06/23/24 05:30 06/23/24 05:59 DC Metronidazole/ Sodium Chloride 100 ml @ 100 mls/hr Q8H6 IVPB 06/23/24 14:00 07/03/24 13:59 06/25/24 15:21 100 MLS/HR Midazolam HCl 100 ml @ 0 mls/hr AD PRN IV TITRATE 06/23/24 22:00 07/23/24 21:59 06/25/24 07:36 6 MLS/HR Morphine Sulfate (morPHINE 2MG SYG) 2 mg Q4H PRN IVP SEVERE PAIN (7-10) 06/22/24 20:30 06/23/24 03:21 DC Norepinephrine 250 ml @ 0 mls/hr PROTOCOL IV 06/22/24 19:30 06/23/24 03:51 DC 06/22/24 20:15 45 MLS/HR Norepinephrine Bitartrate 32 mg/ Sodium Chloride 250 ml @ 0 mls/hr Q0M STAT IV 06/23/24 03:47 06/23/24 03:52 DC 06/23/24 07:22 32.8 MLS/HR Ondansetron HCl (zoFRAN 4MG INJ) 4 mg Q6H PRN IV NAUSEA/VOMITING 06/22/24 20:30 07/22/24 20:29 Ondansetron HCl (zoFRAN 4MG INJ) 4 mg Q6H PRN IVP NAUSEA/VOMITING 06/23/24 03:30 06/23/24 03:18 DC Pantoprazole Sodium (PROTonix 40MG INJ) 40 mg BID IVP 06/23/24 09:00 07/23/24 08:59 06/25/24 07:34 40 MG Pantoprazole Sodium (PROTonix 40MG INJ) 40 mg DAILY IV 06/23/24 09:00 06/23/24 03:19 DC Pharmacy Profile Note (Lace Assessment) 1 each AD MISC 06/24/24 14:00 06/24/24 13:53 DC Pharmacy Profile Note (Pharmacy Communication) 1 each ONCE MISC 06/23/24 14:00 06/23/24 13:46 DC Phenylephrine HCl 100 mg/Sodium Chloride 250 ml @ 0 mls/hr PROTOCOL IV 06/23/24 08:30 07/23/24 08:29 06/23/24 13:00 32.67 MLS/HR Piperacillin Sod/ Tazobactam Sod (Zosyn 3.375gm+NS 50ml) 3.375 gm Q8H IVPB 06/23/24 03:30 06/23/24 04:34 DC Potassium Chloride 100 ml @ 50 mls/hr AD PRN IV POTASSIUM PROTOCOL 06/23/24 05:30 07/23/24 05:29 06/24/24 13:27 50 MLS/HR Propofol (DIPRivan 1000MG/ 100ML) 1,000 mg PROTOCOL PRN IV SEDATION 06/23/24 03:30 07/23/24 03:29 06/23/24 04:06 1,000 MG Sodium Bicarbonate 150 meq/Dextrose 1,150 ml @ 50 mls/hr Q23H IVP 06/23/24 13:00 07/23/24 12:59 06/24/24 19:34 50 MLS/HR Sodium Chloride 1,000 ml @ 0 mls/hr Q0M IV 06/23/24 12:00 07/23/24 11:59 06/23/24 15:43 1,000 MLS/HR Sodium Chloride (NS 50ml) 50 ml AD IV 06/23/24 03:30 06/23/24 03:26 DC Vasopressin 20 units/Sodium Chloride 100 ml @ 0 mls/hr PROTOCOL IV 06/22/24 20:30 07/22/24 20:29 06/24/24 08:43 6 MLS/HR DIAGNOSTICS / RADIOLOGY: [ ] ASSESSMENT: Septic shock, POA Acute hypoxic Respiratory failure POA Acute encephalopathy, in the setting of severe sepsis POA Acute bowel perforation, with subsequent peritonitis s/p exploratory laparotomy 06/23/2024 Dr. Valenzuela POA Urinary tract infection, POA, E coli Acute kidney injury, POA Lactic acidosis, POA, improving Chronic debility, POA DM type 2, POA GERD, POA History small-bowel obstruction History of fibromyalgia Hypertension, now hypotensive in the setting of septic shock Sacral ulcer, POA PLAN: Suspected septic shock, POA Continue IV antibiotic ceftazidime , metronidazole, linezolid q.12h, fluconazole as per ID recommendations Continue IV fluids Acute hypoxic Respiratory failure POA Intubated [PEEP 5, TV 450]and sedated [ on fentanyl and midazolam] Continue ICU care Complete bedrest and Intubation watch Monitor O2 levels and keep saturation above 92% Continue hydrocortisone 50 mg q.6 H Sputum Culture resulted in E coli Acute bowel perforation, with subsequent peritonitis Underwent exploratory laparotomy on 06/23/2024 by The abdominal wound was left open, covered with foam and a surgical drape. A black foam dressing was applied on top and secured with a wound VAC by the wound care today Scheduled for wound closure today by surgery consult. Acute encephalopathy, in the setting of severe sepsis POA Continue IV fluids and antibiotics Monitor lactic acid, electrolyte levels Replace electrolytes as per the protocol, if needed Urinary tract infection, POA, Gram-negative rods Urine culture resulted in E coli Continue IV antibiotics as per ID recommendation Acute kidney injury, POA BUN 26, creatinine 1.5 Continue IV fluids I&Os Daily weights Avoid NSAIDS, Nephrotoxic drugs and contrast Adjust the medication dose to renal dosing DM type 2, POA, GERD, POA Continue Insulin sliding scale Continue Protonix IV Glucometer checks Hypotension, in view of septic shock Blood pressure is ranging in 110s/60s Sacral ulcer, POA Follow up on wound care consult recommendations Patient is currently on a bicarb drip at the rate 50 mL/hour Q 23H in view of lactic acidosis by critical care consult ATTESTATION BY PHYSICIAN I have seen and examined the patient. I reviewed the documentation, medical decision making, and treatment plan as noted by the resident above. I agree with the findings and plan of care. Catarino Cornejo MD, PRIYANKA MD Jun 25, 2024 17:30
[2024-06-25] MEDS: furoSEMIDE 20MG VIAL IV SCH (17:41)
[2024-06-25] MEDS: SODIUM BICARB 8.4% 50ML SYRING 150 MEQ in 0.9%NACL 1000ML 1,000 ML IVP SCH (17:42)
[2024-06-25] MEDS: WATER IVP SCH (18:18)
[2024-06-25] MEDS: SYRING IVP SCH (18:18)
[2024-06-25] MEDS: SODIUM BICARB 8.4% IVP SCH (18:18)
--- NOTE | 2024-06-25 19:13 | PN ---
[facility] PROGRESS NOTE Date Patient Seen: Jun 25, 2024 Time of Visit: 19:11 Supervising Physician: Consulting Physician: [facility] Outpatient Specialists: [ ] Inpatient Consults: [ ] PROBLEM LIST: Acute hypoxic Respiratory failure POA Acute encephalopathy, in the setting of severe sepsis POA Acute bowel perforation with subsequent peritonitis s/p exploratory laparotomy 06/23/24 Dr. Valenzuela POA Shock etiology sepsis POA Urinary tract infection, POA E-coli multisensitive Acute kidney injury, POA Lactic acidosis, POA Chronic debility, POA DM type 2, POA GERD, POA History small-bowel obstruction History of fibromyalgia History of hypertension, now hypotensive in the setting of septic shock versus hemorrhagic shock INTERVAL HISTORY: 06/24/2023: At the time of my evaluation the patient was lying in bed. She was recently on exploratory laparotomy by Dr. Valenzuela and is critically ill [facility]. The patient remains sedated on Diprivan, RASS score of -4. intubated and on mechanical ventilator support for respiratory management. Patient is currently on ACVC mode with FiO2 40%, total volume of 450, peep of 5 and rate of 14 Initially, on the monitor was unable to obtain a blood pressure reading. The patient was tachycardic in the 160. Chemistry panel showed a sodium of 140, potassium of 3.9, chloride 107, CO2 of 13, BUN 22, creatinine of 1.9, blood glucose of 52, Mag one 0.50 a lactic acid of 8.6. Patient has a cumulative balance of positive 269. CBC showed a WBC of 37.4, H&H 10.1/29.6 and a platelet count of 575. Patient currently on cefepime and fluconazole for antibiotic coverage. No other complaint. 06/24/2024: At the time of my evaluation, the patient was lying in bed. She remains sedated with Versed and fentanyl, RASS scale of -5. The patient remains intubated and mechanically vented. On labs, WBC count improved from 31.5-26.7, H&H 11.2/32.4 and a platelet count of 312. Chemistry panel was notable for a BUN of 25, creatinine of 2.0 and a GFR of 26. Lactic acid is improving, today 7.0 and magnesium count of 1.80. Microbiology data showed positive E coli in urine multi sensitive. Anaerobic culture of peritoneal fluid showing no anaerobes and respiratory culture Gram stain showing Gram-negative rods. Patient is currently on antibiotic therapy with ceftazidime, linezolid and fluconazole. No other complaint. 06/25/2024: At the time of my evaluation, the patient is lying in bed. She remains sedated on mechanically vented. ABG this a.m. showed a pH of 7.436, pCO2 41, PO2 91.0, HC03 26.9, SpO2 96.4 and a base excess of 2.5 On the monitor, the patient is hemodynamically stable. Laboratory data today was notable for a significantly improved WBC count down to 11.2 from 09/10 0.7 yesterday. H&H and platelet count remains stable. Chemistry panel was notable for a BUN of 26, creatinine of 1.5 and a GFR of 37. Blood glucose this a.m. was in the 400s. This may be secondary to the dextrose diluent for the bicarb drip. The TPN for nutritional support may also be a contributing factor to the hyperglycemia. The patient remains on broad-spectrum antibiotic coverage with ceftazidime, linezolid , fluconazole and Flagyl. Lactic acid level has significantly improved, today 3.5. Chest x-ray today showed vascular congestion and bibasilar atelectasis. No other complaint. REVIEW OF SYSTEMS: Unable to obtain due to alteration in mental status PHYSICAL EXAM: GENERAL: Encephalopathic, looks pale HEENT: EOMI, Sclera non icteric, moist mucosa NECK: Supple, no JVD, trachea midline LUNGS: Diminished bibasilar air. No wheezes HEART: Sinus tach on the monitor. Normal S1 and S2, without murmurs ABD: Abdomen is distended and tender to palpate. Bowel sounds present EXT: No clubbing cyanosis or edema NEURO: Encephalopathic Vital Signs (last 8hr) Date Time Temp Pulse Resp B/P (MAP) Pulse Ox O2 Delivery O2 Flow Rate FiO2 06/25/24 18:39 30 06/25/24 18:32 77 30 06/25/24 18:30 76 14 98 105/61 (76) 06/25/24 18:15 76 14 98 104/61 (75) 06/25/24 18:00 30 06/25/24 18:00 79 14 97 106/63 (77) 06/25/24 17:45 76 14 99 108/62 (77) 06/25/24 17:30 77 14 98 113/64 (80) 06/25/24 17:15 75 14 98 119/65 (83) 06/25/24 17:00 76 14 98 117/65 (82) 06/25/24 16:45 76 14 98 118/65 (82) 06/25/24 16:30 76 14 98 115/64 (81) 06/25/24 16:20 98.1 06/25/24 16:15 98 Ventilator+ 30 06/25/24 16:15 76 14 98 115/64 (81) 06/25/24 16:00 77 14 98 30 118/65 (82) 06/25/24 15:45 76 14 98 30 115/64 (81) 06/25/24 15:30 77 14 98 30 112/63 (79) 06/25/24 15:29 79 30 06/25/24 15:15 75 14 98 30 103/59 (74) 06/25/24 15:00 77 14 98 101/58 (72) 06/25/24 14:30 77 14 97 103/59 (74) 06/25/24 14:00 77 14 97 103/58 (73) 06/25/24 13:30 77 14 97 104/59 (74) 06/25/24 13:00 75 14 98 119/66 (83) 06/25/24 12:30 81 14 98 97/70 (79) 06/25/24 12:09 82 30 06/25/24 12:00 82 14 98 107/60 (76) 06/25/24 11:30 75 14 97 102/58 (73) 06/25/24 11:30 98 Ventilator+ 30 LABS: Hematology Labs: Test 06/25/24 04:16 06/24/24 03:12 Range/Units White Blood Count 11.2 H 4.8-10.8 K/uL Red Blood Count 3.32 L 4.00-5.50 MIL/uL Hemoglobin 10.3 L 12.0-16.0 g/dL Hematocrit 28.5 L 36-48 % Mean Corpuscular Volume 85.8 79-99 fL Mean Corpuscular Hemoglobin 31.0 27.0-33.0 pg Mean Corpuscular Hemoglobin Concent 36.1 H 32.0-36.0 g/dL Red Cell Distribution Width 15.4 11.0-15.5 % Platelet Count 130 # 130-400 K/uL Mean Platelet Volume 9.0 7.5-10.5 fL Immature Granulocyte % (Auto) 1.5 H 0-1 % Neutrophils (%) (Auto) 89.9 H 40.0-77.0 % Lymphocytes (%) (Auto) 6.6 L 21.0-51.0 % Monocytes (%) (Auto) 1.9 L 3.0-13.0 % Eosinophils (%) (Auto) 0.0 0.0-8.0 % Basophils (%) (Auto) 0.1 0.0-5.0 % Neutrophils # (Auto) 10.1 H 1.8-7.7 K/uL Lymphocytes # (Auto) 0.7 L 1.0-4.8 K/uL Monocytes # (Auto) 0.2 0.1-1.0 K/uL Eosinophils # (Auto) 0.00 0.00-0.70 K/uL Basophils # (Auto) 0.01 0.00-0.20 K/uL Absolute Immature Granulocyte (auto 0.17 0-1 K/uL Nucleated Red Blood Cells 0.3 H 0.0-0.19 % Segmented Neutrophils % 82 H 40-70 % Lymphocytes % (Manual) 4 L 22-44 % Monocytes % (Manual) 9 2-9 % Metamyelocytes % 3 H 0-0 % Myelocytes % 1 H 0-0 % Differential Comment MANUAL DIFFERENTIAL Reactive Lymphocytes 1 H 0-0 % White Cell Morphology Comment IMMATURE GRAN 1+ Platelet Morphology Comment ADEQUATE Red Blood Cell Morphology See comments Chemistry Labs: Test 06/25/24 18:07 06/25/24 11:11 06/25/24 08:07 06/25/24 04:16 Range/Units Whole Blood Glucose 230 H 70-110 MG/DL Bedside Glucose Comment Notified Nurse Lactic Acid Level 3.8 H 0.8-2.5 mmol/L Sodium Level 135 L 136-145 mmol/L Potassium Level 3.6 3.5-5.1 mmol/L Chloride Level 98 L 101-111 mmol/L Carbon Dioxide Level 31 21-32 mmol/L Blood Urea Nitrogen 26 H 7-18 mg/dL Creatinine 1.5 H 0.5-1.0 mg/dL Glomerular Filtration Rate Calc 37 >90 mL/min Random Glucose 443 *H 70-105 mg/dL Total Calcium 6.6 L 8.5-10.1 mg/dL Test 06/24/24 15:50 Range/Units Magnesium Level 2.10 1.80-2.40 mg/dL DIAGNOSTICS / RADIOLOGY RESULTS: [ ] PLAN 06/24/2023: I am going to attempts arterial for better hemodynamic monitoring, if unsuccessful we will request the assistance of anesthesia who attempted the A-line the OR this a.m. but was unsuccessful. Will order IV fluid bolus with IV LR, we will order bicarb pushes X 6 amps. then drip at 125 mL per hour, we will start the patient on hydrocortisone 50 mg IV q.6 hours we will adjust antibiotic therapy with ceftazidime, Zyvox, fluconazole. We will replace magnesium deficit. We will continue to monitor the lactic acid trend. We will any nephrotoxic agents. We will repeat labs, chest x-ray and ABG in the a.m. and once her condition is stabilized we will attempt to wean off the vent. We will monitor the patient's progress and response to management. We will continue to provide general supportive care, GI and DVT prophylaxis. Further orders per attending MD and hospital course. 06/24/2024: For now, going to continue current management for the patient. She will remain sedated and mechanically vented. We are going to continue with bicarb drip, we will decrease the rate to 50 cc/hour in efforts of avoiding fluid volume overload. The patient will continue on antibiotic course with ceftazidime, linezolid and fluconazole. We will follow the recommendation of the Infectious Disease specialist. For nutrition support, the patient remains on TPN and we will run at 83 cc/hour this with added lipids Q other day. Per the general surgeon, the plan is for repeat surgical intervention this coming for abdominal wound closure and removal of the wound VAC. We will monitor the patient's progress and response to management. We will repeat surveillance labs in the morning. We will continue to provide general supportive care, GI and DVT prophylaxis. Further orders per attending MD and hospital course. 06/25/2024: For now, going to continue current management for patient. We will continue sedation and mechanical ventilator support. We will monitor the respiratory status. The patient will continue on nutritional support with TPN. Because of the hyperglycemia, I am going to change the bicarb diluent to sterile water. We will monitor the blood glucose trend and treat accordingly. The patient will remain on broad-spectrum antibiotic therapy and we will follow the input of the Infectious Disease specialist. Per the staff nurse, the plan is for surgical intervention today with Dr. Oswald. We will repeat surveillance labs in the morning. We will monitor the patient's progress and response to management. We will continue to provide general supportive care, GI and DVT prophylaxis. Further orders per attending MD and hospital course. NEURO: Minimize central acting medications as possible. Fall Precautions. Well lighted room through the day and minimize interruptions through the night to prevent acute delirium. PULMONARY: Supplemental 02 as needed Titrate Fio2 to keep Spo2 > or = 90% DuoNebs and CPT as needed IS hourly while awake for pulmonary hygiene CARDIOVASCULAR: Follow hemodynamics. Titrate vasopressor to keep MAP >65 or systolic blood pressure >95mmHg DIPS: Levophed, Protonix LINES: Right upper arm PICC line GI & NUTRITION: NPO Aspirations precautions Prokinetic agents and laxatives as needed KIDNEYS & ELECTROLYTES: Strict monitoring of intake and output Daily weights Avoid nephrotoxic agents Monitor electrolytes and replace as needed Goal urine output of 30mL/hr or 0.5mL/kg/hr ENDOCRINE: Maintain blood glucose between 100-180 at all times. Insulin sliding scale for blood glucose management INFECTIOUS DISEASE: Trend temperature. Clarke-culture if febrile. Micro: [ ] Antibiotics: Cefepime HEMATOLOGY & COAGULATION: Monitor H&H. Keep Hgb > 7 Transfuse 1 unit of PRBC for Hgb < 7 Transfuse 1 pack of platelets of platelets < 20, 000 Watch for any signs and symptoms of bleeding SKIN: Pressure ulcer prevention per facility protocol Rehab: PT/OT Prophylaxis: GI: PPI drip DVT: Bilateral SCDs Code Status: Full Resuscitation Disposition: ICU Other: Total critical care time: 35 min JOSE SPENCER NP Jun 25, 2024 19:13
--- NOTE | 2024-06-25 19:21 | NUR ---
Report given to TRUDI Levine. Shift report completed.
--- NOTE | 2024-06-25 19:54 | PN ---
GENERAL SURGERY PROGRESS NOTE DATE OF SERVICE: Jun 25, 2024 TIME OF SERVICE: 19:54 PROBLEM LISTS: [ ] Perforated bowel SBO INTERVAL HISTORY: [ ] PHYSICAL EXAMINATION: GENERAL: [Patient is lying in bed, intubated and sedated HEAD: [Normal with no signs of head trauma.] EYES: [Not pale not jaundiced afebrile to touch.] ENT: [ Normal.] NECK: [Supple,no tenderness,no lymphadenopathy,no masses,no thyromegaly ,no bruits, no JVD.] LUNGS: [Clear breath sounds bilaterally. No wheezes, rales, or rhonchi.] HEART: [Regular rate and rhythm. Normal S1 and S2, without murmurs, rub or gallop.] ABD: [Wound VAC in place : [Normal, no suprapubic tenderness.] LYMPH: [No lymphadenopathy noted.] EXT: [ Swollen extremities SKIN: [ No rashes or lesions.] NEURO: Intubated and sedated LABORATORY: [ ] Hematology Labs: Test 06/25/24 04:16 06/24/24 03:12 Range/Units White Blood Count 11.2 H 4.8-10.8 K/uL Red Blood Count 3.32 L 4.00-5.50 MIL/uL Hemoglobin 10.3 L 12.0-16.0 g/dL Hematocrit 28.5 L 36-48 % Mean Corpuscular Volume 85.8 79-99 fL Mean Corpuscular Hemoglobin 31.0 27.0-33.0 pg Mean Corpuscular Hemoglobin Concent 36.1 H 32.0-36.0 g/dL Red Cell Distribution Width 15.4 11.0-15.5 % Platelet Count 130 # 130-400 K/uL Mean Platelet Volume 9.0 7.5-10.5 fL Immature Granulocyte % (Auto) 1.5 H 0-1 % Neutrophils (%) (Auto) 89.9 H 40.0-77.0 % Lymphocytes (%) (Auto) 6.6 L 21.0-51.0 % Monocytes (%) (Auto) 1.9 L 3.0-13.0 % Eosinophils (%) (Auto) 0.0 0.0-8.0 % Basophils (%) (Auto) 0.1 0.0-5.0 % Neutrophils # (Auto) 10.1 H 1.8-7.7 K/uL Lymphocytes # (Auto) 0.7 L 1.0-4.8 K/uL Monocytes # (Auto) 0.2 0.1-1.0 K/uL Eosinophils # (Auto) 0.00 0.00-0.70 K/uL Basophils # (Auto) 0.01 0.00-0.20 K/uL Absolute Immature Granulocyte (auto 0.17 0-1 K/uL Nucleated Red Blood Cells 0.3 H 0.0-0.19 % Segmented Neutrophils % 82 H 40-70 % Lymphocytes % (Manual) 4 L 22-44 % Monocytes % (Manual) 9 2-9 % Metamyelocytes % 3 H 0-0 % Myelocytes % 1 H 0-0 % Differential Comment MANUAL DIFFERENTIAL Reactive Lymphocytes 1 H 0-0 % White Cell Morphology Comment IMMATURE GRAN 1+ Platelet Morphology Comment ADEQUATE Red Blood Cell Morphology See comments Chemistry Labs: Test 06/25/24 19:09 06/25/24 11:11 06/25/24 08:07 06/25/24 04:16 Range/Units Whole Blood Glucose 231 H 70-110 MG/DL Bedside Glucose Comment Notified Nurse Lactic Acid Level 3.8 H 0.8-2.5 mmol/L Sodium Level 135 L 136-145 mmol/L Potassium Level 3.6 3.5-5.1 mmol/L Chloride Level 98 L 101-111 mmol/L Carbon Dioxide Level 31 21-32 mmol/L Blood Urea Nitrogen 26 H 7-18 mg/dL Creatinine 1.5 H 0.5-1.0 mg/dL Glomerular Filtration Rate Calc 37 >90 mL/min Random Glucose 443 *H 70-105 mg/dL Total Calcium 6.6 L 8.5-10.1 mg/dL Test 06/24/24 15:50 Range/Units Magnesium Level 2.10 1.80-2.40 mg/dL DIAGNOSTICS / RADIOLOGY: [Copy/Paste Echos/Imaging Report here] ASSESSMENT: [] Acute abdomen Perforated bowel Recurrent SBO Multiple abdominal surgeries Umbilical/incisional hernia S/p exploratory laparotomy PLAN: [] Aggressive resuscitation NPO/IVF/IV ANTIOBIOTICS Labs in preetih ELSA DA SILVA MD Jun 25, 2024 19:54
[2024-06-25] MEDS: M.V.I. IV [ADULT] 10 ML in CLINIMIX-E 5%AA /D15%W 2000ML 2,000 ML IV ONE (21:21)
[2024-06-26] VITALS (89 sets, daily range): BP systolic 73–159; BP diastolic 5–90; PULSE 72–143; RESP 10–15; TEMP 93.7–97.1; O2SAT 95–100
[2024-06-26] MEDS: ceFAZolin SODIUM 1 GM VIAL ONE
[2024-06-26 05:18] LABS: MEAN CORPUSCULAR HEMOGLOBIN 29.5 pg (27.0-33.0); MEAN CORPUSCULAR HGB CONC 35.8 g/dL (32.0-36.0); MEAN CORPUSCULAR VOLUME 82.5 fL (79-99); NUCLEATED RED BLOOD CELLS 0.6 % (0.0-0.19); RED BLOOD CELL COUNT(AUTO) 3.15 MIL/uL (4.00-5.50); RED CELL DISTRIBUTION WIDTH 14.9 % (11.0-15.5); WHITE BLOOD COUNT (AUTO) 6.9 K/uL (4.8-10.8)
[2024-06-26 05:26] LABS: CREATININE 1.4 mg/dL (0.5-1.0)
[2024-06-26 05:27] LABS: POTASSIUM 2.9 mmol/L (3.5-5.1)
--- NOTE | 2024-06-26 07:58 | NUR ---
Dr. Oswald notified of ABG. JULIO was acknowledge. No new orders. Addendum: 06/26/24 at 2017 by JUAN MANUEL KNIGHT RN RN correction, Dr. Oswald was notified abbwing KIM at 19:58hrs
[2024-06-26] MEDS: FAT EMULSIONS 20% 250ML 250 ML IV SCH (08:41)
--- NOTE | 2024-06-26 09:24 | HMCIMG ---
FRONTAL CHEST RADIOGRAPH INDICATION: Endotracheal intubation COMPARISON: None FINDINGS/IMPRESSION: traffic monitor specialist leads overlie the field of view. Stable endotracheal tube 3 cm above the amy. Remainder of the study is unchanged.
--- NOTE | 2024-06-26 09:31 | PN ---
[facility] PROGRESS NOTE Date Patient Seen: Jun 26, 2024 Time of Visit: 09:31 Supervising Physician: Dr. Alarcon Consulting Physician: [facility] Outpatient Specialists: [ ] Inpatient Consults: [ ] PROBLEM LIST: Acute hypoxic Respiratory failure POA Acute encephalopathy, in the setting of severe sepsis POA Acute bowel perforation with subsequent peritonitis s/p exploratory laparotomy 06/23/24 Dr. Valenzuela POA Culture + E-coli Shock etiology sepsis POA Urinary tract infection, POA E-coli multisensitive Pneumonitis, culture + for E-coli Acute kidney injury, POA Lactic acidosis, POA Chronic debility, POA DM type 2, POA GERD, POA History small-bowel obstruction History of fibromyalgia History of hypertension, now hypotensive in the setting of septic shock versus hemorrhagic shock INTERVAL HISTORY: 06/24/2023: At the time of my evaluation the patient was lying in bed. She was recently on exploratory laparotomy by Dr. Valenzuela and is critically ill appearing. The patient remains sedated on Diprivan, RASS score of -4. intubated and on mechanical ventilator support for respiratory management. Patient is currently on ACVC mode with FiO2 40%, total volume of 450, peep of 5 and rate of 14 Initially, on the monitor was unable to obtain a blood pressure reading. The patient was tachycardic in the 160. Chemistry panel showed a sodium of 140, potassium of 3.9, chloride 107, CO2 of 13, BUN 22, creatinine of 1.9, blood glucose of 52, Mag one 0.50 a lactic acid of 8.6. Patient has a cumulative balance of positive 269. CBC showed a WBC of 37.4, H&H 10.1/29.6 and a platelet count of 575. Patient currently on cefepime and fluconazole for antibiotic coverage. No other complaint. 06/24/2024: At the time of my evaluation, the patient was lying in bed. She remains sedated with Versed and fentanyl, RASS scale of -5. The patient remains intubated and mechanically vented. On labs, WBC count improved from 31.5-26.7, H&H 11.2/32.4 and a platelet count of 312. Chemistry panel was notable for a BUN of 25, creatinine of 2.0 and a GFR of 26. Lactic acid is improving, today 7.0 and magnesium count of 1.80. Microbiology data showed positive E coli in urine multi sensitive. Anaerobic culture of peritoneal fluid showing no anaerobes and respiratory culture Gram stain showing Gram-negative rods. Patient is currently on antibiotic therapy with ceftazidime, linezolid and fluconazole. No other complaint. 06/25/2024: At the time of my evaluation, the patient is lying in bed. She remains sedated on mechanically vented. ABG this a.m. showed a pH of 7.436, pCO2 41, PO2 91.0, HC03 26.9, SpO2 96.4 and a base excess of 2.5 On the monitor, the patient is hemodynamically stable. Laboratory data today was notable for a significantly improved WBC count down to 11.2 from 09/10 0.7 yesterday. H&H and platelet count remains stable. Chemistry panel was notable for a BUN of 26, creatinine of 1.5 and a GFR of 37. Blood glucose this a.m. was in the 400s. This may be secondary to the dextrose diluent for the bicarb drip. The TPN for nutritional support may also be a contributing factor to the hyperglycemia. The patient remains on broad-spectrum antibiotic coverage with ceftazidime, l inezolid , fluconazole and Flagyl. Lactic acid level has significantly improved, today 3.5. Chest x-ray today showed vascular congestion and bibasilar atelectasis. No other complaint. 06/26/2024: At the time of my evaluation, the patient was lying in bed. She remains on fentanyl/Versed sedation, RASS score -5. She remains endotracheally intubated and on a mechanical ventilator support. On the monitor, the patient is hemodynamically stable on Ajay-Synephrine drip on labs today, there was notation of a improved WBC count 6.9 today, H&H 9.3/26.0 and a platelet count of 70 which necessitates a drop from 130 yesterday. On chemistry, findings were significant for low sodium of 134 and a severely low potassium of 2.9 with a chloride of 98. Renal parameters showed improving creatinine with a BUN of 28, creatinine of 1.4 and a GFR of 40. Total calcium of 6.8. Microbiology data showing E coli growth in urine, peritoneal fluid and sputum. There was also bacteroides uniformis growth in the peritoneal fluid. The patient continues on antibiotic coverage with ceftazidime, fluconazole, metronidazole and linezolid. Per the staff nurse, the plan is for surgical intervention today by Dr. Oswald. No other complaint. REVIEW OF SYSTEMS: Unable to obtain due to alteration in mental status PHYSICAL EXAM: GENERAL: Encephalopathic, looks pale HEENT: EOMI, Sclera non icteric, moist mucosa NECK: Supple, no JVD, trachea midline LUNGS: Diminished bibasilar air. No wheezes HEART: Sinus tach on the monitor. Normal S1 and S2, without murmurs ABD: Abdomen is distended and tender to palpate. Bowel sounds present EXT: No clubbing cyanosis or edema NEURO: Encephalopathic Vital Signs (last 8hr) Date Time Temp Pulse Resp B/P (MAP) Pulse Ox O2 Delivery O2 Flow Rate FiO2 06/26/24 06:45 80 14 98 107/63 (78) 06/26/24 06:30 78 30 06/26/24 06:30 30 06/26/24 06:30 81 14 98 113/65 (81) 06/26/24 06:15 78 14 98 100/59 (73) 06/26/24 06:00 79 14 98 101/59 (73) 06/26/24 05:45 78 14 98 103/61 (75) 06/26/24 05:30 76 14 98 104/61 (75) 06/26/24 05:15 80 14 98 103/59 (74) 06/26/24 05:00 77 14 99 107/62 (77) 06/26/24 04:45 76 14 99 73/5 (27) 06/26/24 04:38 77 30 06/26/24 04:30 76 14 99 117/65 (82) 06/26/24 04:15 73 14 99 114/64 (81) 06/26/24 04:00 98 Ventilator+ 30 06/26/24 04:00 97.2 06/26/24 04:00 73 14 99 122/68 (86) 06/26/24 03:45 73 14 99 136/73 (94) 06/26/24 03:30 72 14 99 121/67 (85) 06/26/24 03:15 73 14 99 120/67 (84) 06/26/24 03:00 74 14 99 121/68 (85) 06/26/24 02:45 76 14 99 119/68 (85) 06/26/24 02:30 75 14 99 122/68 (86) 06/26/24 02:15 76 14 99 122/68 (86) 06/26/24 02:00 30 06/26/24 02:00 76 14 99 121/67 (85) 06/26/24 01:45 79 14 98 122/68 (86) LABS: Hematology Labs: Test 06/26/24 05:02 06/25/24 04:16 Range/Units White Blood Count 6.9 4.8-10.8 K/uL Red Blood Count 3.15 L 4.00-5.50 MIL/uL Hemoglobin 9.3 L 12.0-16.0 g/dL Hematocrit 26.0 L 36-48 % Mean Corpuscular Volume 82.5 79-99 fL Mean Corpuscular Hemoglobin 29.5 27.0-33.0 pg Mean Corpuscular Hemoglobin Concent 35.8 32.0-36.0 g/dL Red Cell Distribution Width 14.9 11.0-15.5 % Platelet Count 70 #L 130-400 K/uL Mean Platelet Volume 9.1 7.5-10.5 fL Nucleated Red Blood Cells 0.6 H 0.0-0.19 % Immature Granulocyte % (Auto) 1.5 H 0-1 % Neutrophils (%) (Auto) 89.9 H 40.0-77.0 % Lymphocytes (%) (Auto) 6.6 L 21.0-51.0 % Monocytes (%) (Auto) 1.9 L 3.0-13.0 % Eosinophils (%) (Auto) 0.0 0.0-8.0 % Basophils (%) (Auto) 0.1 0.0-5.0 % Neutrophils # (Auto) 10.1 H 1.8-7.7 K/uL Lymphocytes # (Auto) 0.7 L 1.0-4.8 K/uL Monocytes # (Auto) 0.2 0.1-1.0 K/uL Eosinophils # (Auto) 0.00 0.00-0.70 K/uL Basophils # (Auto) 0.01 0.00-0.20 K/uL Absolute Immature Granulocyte (auto 0.17 0-1 K/uL Chemistry Labs: Test 06/26/24 09:29 06/26/24 05:02 06/25/24 11:11 06/25/24 08:07 Range/Units Whole Blood Glucose 156 H 70-110 MG/DL Sodium Level 134 L 136-145 mmol/L Potassium Level 2.9 *L 3.5-5.1 mmol/L Chloride Level 98 L 101-111 mmol/L Carbon Dioxide Level 32 21-32 mmol/L Blood Urea Nitrogen 28 H 7-18 mg/dL Creatinine 1.4 H 0.5-1.0 mg/dL Glomerular Filtration Rate Calc 40 >90 mL/min Random Glucose 214 H 70-105 mg/dL Total Calcium 6.8 L 8.5-10.1 mg/dL Bedside Glucose Comment Notified Nurse Lactic Acid Level 3.8 H 0.8-2.5 mmol/L Test 06/24/24 15:50 Range/Units Magnesium Level 2.10 1.80-2.40 mg/dL DIAGNOSTICS / RADIOLOGY RESULTS: [ ] PLAN 06/24/2023: I am going to attempts arterial for better hemodynamic monitoring, if unsuccessful we will request the assistance of anesthesia who attempted the A-line the OR this a.m. but was unsuccessful. Will order IV fluid bolus with IV LR, we will order bicarb pushes X 6 amps. then drip at 125 mL per hour, we will start the patient on hydrocortisone 50 mg IV q.6 hours we will adjust antibiotic therapy with ceftazidime, Zyvox, fluconazole. We will replace magnesium deficit. We will continue to monitor the lactic acid trend. We will any nephrotoxic agents. We will repeat labs, chest x-ray and ABG in the a.m. and once her condition is stabilized we will attempt to wean off the vent. We will monitor the patient's progress and response to management. We will continue to provide general supportive care, GI and DVT prophylaxis. Further orders per attending MD and hospital course. 06/24/2024: For now, going to continue current management for the patient. She will remain sedated and mechanically vented. We are going to continue with bicarb drip, we will decrease the rate to 50 cc/hour in efforts of avoiding fluid volume overload. The patient will continue on antibiotic course with ceftazidime, linezolid and fluconazole. We will follow the recommendation of the Infectious Disease specialist. For nutrition support, the patient remains on TPN and we will run at 83 cc/hour this with added lipids Q other day. Per the general surgeon, the plan is for repeat surgical intervention this coming for abdominal wound closure and removal of the wound VAC. We will monitor the patient's progress and response to management. We will repeat surveillance labs in the morning. We will continue to provide general supportive care, GI and DVT prophylaxis. Further orders per attending MD and hospital course. 06/25/2024: For now, going to continue current management for patient. We will continue sedation and mechanical ventilator support. We will monitor the respiratory status. The patient will continue on nutritional support with TPN. Because of the hyperglycemia, I am going to change the bicarb diluent to sterile water. We will monitor the blood glucose trend and treat accordingly. The patient will remain on broad-spectrum antibiotic therapy and we will follow the input of the Infectious Disease specialist. Per the staff nurse, the plan is for surgical intervention today with Dr. Oswald. We will repeat surveillance labs in the morning. We will monitor the patient's progress and response to management. We will continue to provide general supportive care, GI and DVT prophylaxis. Further orders per attending MD and hospital course. 06/26/2024: For now, going to continue current management for the patient. She will continue on mechanical ventilator support, while awaiting surgical intervention. The patient will remain on sedation as well as pressor therapy. Because of the antibiogram , the patient will continue on antibiotic regimen guided by the Infectious Disease specialist. The linezolid will likely need to be discontinued due to the low platelet count. We will replace electrolyte deficit per the protocol as necessary and follow the trend. Currently the patient is on TPN for nutritional supplementation. We will follow the recommendation of the treating specialist. We will continue to monitor the renal parameters. We will continue to provide general supportive care, GI and DVT prophylaxis. Further orders per attending MD and hospital course. NEURO: Minimize central acting medications as possible. Fall Precautions. Well lighted room through the day and minimize interruptions through the night to prevent acute delirium. PULMONARY: Supplemental 02 as needed Titrate Fio2 to keep Spo2 > or = 90% DuoNebs and CPT as needed IS hourly while awake for pulmonary hygiene CARDIOVASCULAR: Follow hemodynamics. Titrate vasopressor to keep MAP >65 or systolic blood pressure >95mmHg DIPS: Ajay Versed and fentanyl LINES: Right upper arm PICC line Right groin A-line GI & NUTRITION: NPO Aspirations precautions Prokinetic agents and laxatives as needed KIDNEYS & ELECTROLYTES: Strict monitoring of intake and output Daily weights Avoid nephrotoxic agents Monitor electrolytes and replace as needed Goal urine output of 30mL/hr or 0.5mL/kg/hr ENDOCRINE: Maintain blood glucose between 100-180 at all times. Insulin sliding scale for blood glucose management INFECTIOUS DISEASE: Trend temperature. Clarke-culture if febrile. Micro: [ ] Antibiotics: Cefepime HEMATOLOGY & COAGULATION: Monitor H&H. Keep Hgb > 7 Transfuse 1 unit of PRBC for Hgb < 7 Transfuse 1 pack of platelets of platelets < 20, 000 Watch for any signs and symptoms of bleeding SKIN: Pressure ulcer prevention per facility protocol Rehab: PT/OT Prophylaxis: GI: PPI drip DVT: Bilateral SCDs Code Status: Full Resuscitation Disposition: ICU Other: Total critical care time: 35 min JOSE SPENCER NP Jun 26, 2024 09:31
--- NOTE | 2024-06-26 09:58 | NUR ---
Dr. Eduardo notified of low platelets. Orders to D/C Zyvox were placed and executed
[2024-06-26 10:05] LABS: ABG BASE EXCESS 3.2 mmol/L (-2.0-3.0); ABG HCO3 27.2 mmol/L (21.0-28.0); ABG OXYGEN SATURATION 97.2 % (94.0-98.0); ABG PCO2 39 mmHg (32-45); ABG PH 7.464 (7.350-7.450); CARBON MONOXIDE 0.3 % (0.5-1.5); DEVICE COMMENT A-LINE; HHb 2.8; PO2, ARTERIAL BG 103.8 mmHg (83.0-108.0); VENT MODE, BG AC-VC (ROOM AIR)
--- NOTE | 2024-06-26 10:10 | NUR ---
patient roberto transported to OR at this time
[2024-06-26] MEDS ORDERED: rocuRONium bROMide 10MG/1ML 5ML VL ONE ×3 (10:26→13:08)
[2024-06-26] MEDS ORDERED: FENTanyl CITRate PF 50 MCG/1 ML 5ML AMP IV ONE (10:49)
[2024-06-26] MEDS ORDERED: ALBUTEROL INHALER 90MCG/INH IH ONE (11:06)
[2024-06-26] MEDS ORDERED: phenylEPHRINE HCL 10 MG/ML 1ML VIAL IV ONE (11:33)
[2024-06-26] MEDS ORDERED: ALBUMIN (HUMAN) 5% 500 ML IV ONE (12:12)
--- NOTE | 2024-06-26 13:43 | PN ---
[facility] PROGRESS NOTE Date of Service: Jun 26, 2024 Time of Service: 13:41 SUBJECTIVE: Ms. Chandler is a 73-year-old female, with a past medical history of hypertension, hypothyroidism, DM, anemia, fibromyalgia, recurrent SpO2 is, chronic left hip pain, cervical CA presented to the ER with the complaints of sharp CBC left lower quadrant abdominal pain with nausea and vomiting since 2 days. Initial vitals blood pressure 62/50 which improved on Levophed. Initial labs WBCs 26.3, lactic acid 6.7. CT abdomen/pelvis resulted in Large amount of free abdominal air is seen concerning for bowel perforation. Surgery consult was obtained. 06/23/2024 postop patient is seen and examined at the bedside. She is sedated on Diprivan and intubated. She underwent exploratory laparotomy 06/23/24 Dr. Valenzuela for perforated small bowel and subsequent peritonitis this morning. Vitals blood pressure 104/58, heart rate 146 on Phenylephrine and vasopressin. Labs WBC 37.4, BUN 2 , creatinine 1.7, magnesium 0.90, TSH 16.6. Lactic acid improved from 7.7- 5. Urinalysis positive for leukocyte esterase. Chest x-ray revealed prominent bilateral interstitial markings. 06/24/2024 Patient is seen at the bedside. She is currently sedated on fentanyl and midazolam. Vitals blood pressure 131/72 on vasopressin. Currently intubated with VT 450, peep 5 and respiratory rate 14. Labs WBC improved from 31.5-26.7, hemoglobin 11.2, BUN 25 , creatinine 2 , lactic acid 10.3. Urine culture resulted in E coli. 06/25/2024 Patient is seen at the bedside. She remains intubated and sedated on fentanyl and midazolam. Vitals blood pressure in 110s/60s. Labs WBC improved from 26.7-11.2, hemoglobin 10.3, BUN 26, creatinine improved from 2-1.5, lactic acid improved from 4.5-3.5. Urine culture, respiratory culture and abdominal site culture resulted in E coli organism. 06/26/24 patient remains sedated and intubated. She has gone down to OR for extensive abdominal surgery REVIEW OF SYSTEMS: Not able to get a proper history as the patient is sedated CONSTITUTIONAL: Denies fevers, chills, or night sweats. No unintentional weight loss reported. NEUROLOGICAL: Denies headache, amaurosis fugax, motor weakness, sensory deficit, vertigo/spinning sensation, gait abnormalities, or tremors. ENT: No hearing loss, otalgia, otorrhea, rhinitis, rhinorrhea, hoarseness, or sore throat. CARDIOVASCULAR: Denies any exertional angina, dyspnea on exertion, orthopnea, paroxysmal nocturnal dyspnea, palpitations, life-threatening arrhythmias, claudication. PULMONARY: Denies any shortness of breath, cough, phlegm/sputum, hemoptysis, pleuritic chest pain. SLEEP: Denies morning headaches, daytime somnolence or napping. Denies difficu lty falling asleep, staying asleep, waking from sleep. Denies knowledge of snoring. GASTROINTESTINAL: Denies any type of dysphagia to either liquids or solids. Denies nausea, vomiting, pyrosis, early satiety, abdominal pain, diarrhea, constipation, or changes in stool consistency or caliber. Denies coffee-ground emesis, hematemesis, hematochezia, or melanotic stools. GENITOURINARY: Denies frequency, urgency, nocturia, hematuria or incontinence (Storage/Irritative symptoms.) Low urinary stream, straining to void, urinary intermittency or hesitancy, splitting of the voiding stream, terminal dribbling. ENDOCRINOLOGIC: Denies polyuria, polydipsia, polyphagia or heat/cold intol erances. HEMATOLOGIC: Denies thrombophilia/previous clots, or coagulopathy/bleeding disorders. ONCOLOGIC: Denies personal history of malignancy. DERMATOLOGIC: Denies rashes or pruritus. PSYCHIATRIC: Denies any suicidal or homicidal ideation. Denies hallucinations. PHYSICAL EXAM GENERAL APPEARANCE: The patient is sedated NEUROLOGICAL: Cranial nerves II-XII grossly intact. Motor is 5/5 in bilateral upper and lower extremities proximal to distal. No sensory deficits. HEENT: Face is symmetric. Pupils are equal and reactive. Extraocular movements are intact. NECK: Supple. No JVD. No thyromegaly. No submental, submandibular, pre- /postauricular, occipital or supraclavicular lymphadenopathy. CHEST: Normal chest expansion. No Telemetry. LUNGS: Absence of any rales, rhonchi or any wheezing. CARDIOVASCULAR: Regular. S1 and S2 normal. No appreciable rubs, murmurs or ga llops. ABDOMEN: Soft, nontender, and nondistended. There is no rebound, voluntary guarding, or rigidity. : Deferred. No Hearn. EXTREMITIES: Non-edematous and not cyanotic. No clubbing. Good capillary refill. SKIN: No skin breakdown. Vital Signs (last 8hr) Date Time Temp Pulse Resp B/P (MAP) Pulse Ox O2 Delivery O2 Flow Rate FiO2 06/26/24 10:35 30 06/26/24 09:55 74 30 06/26/24 09:45 76 14 98 91/55 (67) 06/26/24 09:30 76 14 98 91/55 (67) 06/26/24 09:15 76 14 98 91/54 (66) 06/26/24 09:00 75 14 98 90/54 (66) 06/26/24 08:45 77 14 98 91/55 (67) 06/26/24 08:30 79 14 98 98/58 (71) 06/26/24 08:15 78 14 98 94/56 (69) 06/26/24 08:00 98 Ventilator+ 30 06/26/24 08:00 97.0 06/26/24 08:00 97.0 80 14 98 96/58 (71) 06/26/24 07:45 80 14 98 97/57 (70) 06/26/24 07:30 80 14 98 101/60 (74) 06/26/24 07:15 78 14 98 100/59 (73) 06/26/24 07:00 79 14 98 103/61 (75) 06/26/24 06:45 80 14 98 107/63 (78) 06/26/24 06:30 78 30 06/26/24 06:30 30 06/26/24 06:30 81 14 98 113/65 (81) 06/26/24 06:15 78 14 98 100/59 (73) 06/26/24 06:00 79 14 98 101/59 (73) 06/26/24 05:45 78 14 98 103/61 (75) LABS: Laboratory: Test 06/26/24 10:04 06/26/24 09:29 06/26/24 05:02 06/25/24 11:11 Range/Units Blood Gas Specimen Type Arterial Arterial Blood pH 7.464 H 7.350-7.450 Arterial Blood Partial Pressure CO2 39 32-45 mmHg Arterial Blood Partial Pressure O2 103.8 83.0-108.0 mmHg Arterial Blood HCO3 27.2 21.0-28.0 mmol/L Arterial Blood Oxygen Saturation 97.2 94.0-98.0 % Arterial Blood Base Excess 3.2 H -2.0-3.0 mmol/L Hemoglobin (Blood Gas) 9.4 L 12.0-16.0 g/dL Sodium (Blood Gas) 129 L 136-145 MMOL/L Bedside Potassium (Blood Gas) 3.1 L 3.4-4.5 MMOL/L Bedside Chloride (Blood Gas) 97 L 98-107 MMOL/L Bedside Glucose (Blood Gas) 160 H 65-95 MG/DL Bedside Ionized Calcium (Blood Gas) 1.00 L 1.15-1.33 MMOL/L Bedside Lactic Acid (Blood Gas) 2.32 H 0.36-0.75 MMOL/L Blood Gas Temperature 37.0 35.5-37.0 CELSIUS Blood Gas Respiration Rate 14.0 min. Blood Gas Vent Mode AC-VC ROOM AIR FiO2 30.0 % Blood Gas Tidal Volume 450 ml Blood Gas PEEP 5 cm H2O Blood Gas Specimen Comment A-LINE Whole Blood Glucose 156 H 70-110 MG/DL White Blood Count 6.9 4.8-10.8 K/uL Red Blood Count 3.15 L 4.00-5.50 MIL/uL Hemoglobin 9.3 L 12.0-16.0 g/dL Hematocrit 26.0 L 36-48 % Mean Corpuscular Volume 82.5 79-99 fL Mean Corpuscular Hemoglobin 29.5 27.0-33.0 pg Mean Corpuscular Hemoglobin Concent 35.8 32.0-36.0 g/dL Red Cell Distribution Width 14.9 11.0-15.5 % Platelet Count 70 #L 130-400 K/uL Mean Platelet Volume 9.1 7.5-10.5 fL Nucleated Red Blood Cells 0.6 H 0.0-0.19 % Sodium Level 134 L 136-145 mmol/L Potassium Level 2.9 *L 3.5-5.1 mmol/L Chloride Level 98 L 101-111 mmol/L Carbon Dioxide Level 32 21-32 mmol/L Blood Urea Nitrogen 28 H 7-18 mg/dL Creatinine 1.4 H 0.5-1.0 mg/dL Glomerular Filtration Rate Calc 40 >90 mL/min Random Glucose 214 H 70-105 mg/dL Total Calcium 6.8 L 8.5-10.1 mg/dL Bedside Glucose Comment Notified Nurse Test 06/25/24 08:07 06/25/24 04:16 06/24/24 15:50 Range/Units Lactic Acid Level 3.8 H 0.8-2.5 mmol/L Immature Granulocyte % (Auto) 1.5 H 0-1 % Neutrophils (%) (Auto) 89.9 H 40.0-77.0 % Lymphocytes (%) (Auto) 6.6 L 21.0-51.0 % Monocytes (%) (Auto) 1.9 L 3.0-13.0 % Eosinophils (%) (Auto) 0.0 0.0-8.0 % Basophils (%) (Auto) 0.1 0.0-5.0 % Neutrophils # (Auto) 10.1 H 1.8-7.7 K/uL Lymphocytes # (Auto) 0.7 L 1.0-4.8 K/uL Monocytes # (Auto) 0.2 0.1-1.0 K/uL Eosinophils # (Auto) 0.00 0.00-0.70 K/uL Basophils # (Auto) 0.01 0.00-0.20 K/uL Absolute Immature Granulocyte (auto 0.17 0-1 K/uL Magnesium Level 2.10 1.80-2.40 mg/dL Current Medications Medications (Trade) Dose Ordered Sig/Dionisio Route PRN Reason Start Time Stop Time Status Last Admin Dose Admin Acetaminophen (TYLenol 325MG TAB) 650 mg Q4H PRN PO TEMPERATURE GREATER THAN 101.5 06/23/24 03:30 07/23/24 03:29 Acetaminophen (TYLenol 650MG SUPPOSITORY) 650 mg Q6H PRN RC MILD PAIN (1-3) 06/22/24 20:30 07/22/24 20:29 Albumin Human 100 ml @ 0 mls/hr Q6H6 IV 06/23/24 00:00 06/23/24 12:52 DC Albumin Human 250 ml @ 0 mls/hr AD IV 06/23/24 11:30 06/24/24 11:29 DC 06/24/24 13:26 400 MLS/HR Albumin Human 250 ml @ 0 mls/hr AD IV 06/24/24 12:00 06/24/24 13:21 DC Artificial Tears (Artificial Tears) 1 DROP BID OU 06/24/24 21:00 07/24/24 20:59 06/26/24 08:44 1 DROP Cefepime HCl (MAXipime 2 gm vial) 2 gm Q12H IVPB 06/22/24 21:00 06/23/24 03:25 DC 06/22/24 22:03 2 GM Cefepime HCl (MAXipime 2 gm vial) 2 gm Q24H IVPB 06/23/24 21:00 06/23/24 21:47 DC 06/23/24 21:15 2 GM Ceftazidime (ForTAZ/TAZidime) 1 gm Q24H IVPB 06/24/24 01:30 07/04/24 01:29 06/26/24 01:04 1 GM Enoxaparin Sodium (Lovenox) 30 mg DAILY SQ 06/23/24 09:00 07/23/24 08:59 06/25/24 07:35 30 MG Fat Emulsion Intravenous 250 ml @ 42 mls/hr DAILY10 IV 06/24/24 10:00 06/24/24 13:22 DC 06/24/24 10:07 42 MLS/HR Fat Emulsion Intravenous 250 ml @ 42 mls/hr QMOWEFR@1000 IV 06/26/24 10:00 07/24/24 09:59 06/26/24 08:41 42 MLS/HR Fentanyl Citrate 100 ml @ 2.5 mls/hr PROTOCOL IV 06/23/24 09:00 06/30/24 08:59 06/26/24 08:43 2.5 MLS/HR Fluconazole/ Sodium Chloride (DiFLUCan 200 MG/ NS 100 ML) 200 mg Q24H IVPB 06/23/24 03:30 07/23/24 03:29 06/26/24 03:24 200 MG Furosemide (LASix 20MG VIAL) 20 mg ONCE STAT IV 06/25/24 15:49 06/25/24 15:50 DC 06/25/24 16:11 20 MG Furosemide (LASix 20MG VIAL) 20 mg Q8H IV 06/25/24 17:30 06/27/24 17:29 06/26/24 08:41 20 MG Furosemide 100 mg/ Sodium Chloride 100 ml @ 0 mls/hr PROTOCOL IV 06/23/24 12:00 06/23/24 12:44 DC 06/23/24 11:37 5 MLS/HR Heparin Sodium (Porcine) (HEParin 5,000 UNIT VIAL) 5,000 unit BID SQ 06/22/24 21:00 06/22/24 20:48 DC Hydrocortisone Sodium Succinate (Solu-corTEF 100MG) 50 mg Q6H6 IV 06/23/24 09:00 07/23/24 08:59 06/26/24 05:33 50 MG Hydromorphone HCl (DiLAUDid 1MG INJ) 1 mg Q3H3 PRN IVP SEVERE PAIN (7-10) 06/23/24 03:30 06/28/24 03:29 Insulin Human Regular (humuLIN R 100 UNIT/ML 3ML) INSULIN SLIDING SCAL... ACHS SQ 06/22/24 21:00 06/24/24 15:37 DC 06/24/24 10:09 6 UNIT Insulin Human Regular (humuLIN R 100 UNIT/ML 3ML) INSULIN SLIDING SCAL... Q6H6 SQ 06/24/24 18:00 06/25/24 06:25 DC 06/24/24 23:32 7 UNIT Insulin Human Regular 100 unit/ Sodium Chloride 100 ml @ 0 mls/hr AD IV 06/25/24 06:30 07/02/24 06:29 06/26/24 07:24 4 MLS/HR Ketorolac Tromethamine (toRADol) 15 mg Q6H PRN IV MODERATE PAIN (4-6) 06/23/24 03:30 06/28/24 03:29 Lactated Ringer's 1,000 ml @ 125 mls/hr Q8H IV 06/22/24 20:30 06/23/24 12:44 DC 06/23/24 11:23 125 MLS/HR Lactated Ringer's (Lactated Ringers 1000ml) 500 ml BOLUS IV 06/23/24 05:30 06/24/24 13:22 DC Linezolid 300 ml @ 150 mls/hr Q12H IV 06/23/24 15:00 06/26/24 10:34 DC 06/26/24 03:27 150 MLS/HR Magnesium Sulfate 50 ml @ 0 mls/hr PROTOCOL IV 06/23/24 04:30 07/23/24 04:29 06/24/24 05:07 25 MLS/HR Magnesium Sulfate (Magnesium 4gm Premix 100ml) 4 gm AD IV 06/23/24 05:30 06/23/24 05:59 DC Metronidazole/ Sodium Chloride 100 ml @ 100 mls/hr Q8H6 IVPB 06/23/24 14:00 07/03/24 13:59 06/26/24 05:33 100 MLS/HR Midazolam HCl 100 ml @ 0 mls/hr AD PRN IV TITRATE 06/23/24 22:00 07/23/24 21:59 06/26/24 01:07 6 MLS/HR Morphine Sulfate (morPHINE 2MG SYG) 2 mg Q4H PRN IVP SEVERE PAIN (7-10) 06/22/24 20:30 06/23/24 03:21 DC Norepinephrine 250 ml @ 0 mls/hr PROTOCOL IV 06/22/24 19:30 06/23/24 03:51 DC 06/22/24 20:15 45 MLS/HR Norepinephrine Bitartrate 32 mg/ Sodium Chloride 250 ml @ 0 mls/hr Q0M STAT IV 06/23/24 03:47 06/23/24 03:52 DC 06/23/24 07:22 32.8 MLS/HR Ondansetron HCl (zoFRAN 4MG INJ) 4 mg Q6H PRN IV NAUSEA/VOMITING 06/22/24 20:30 07/22/24 20:29 Ondansetron HCl (zoFRAN 4MG INJ) 4 mg Q6H PRN IVP NAUSEA/VOMITING 06/23/24 03:30 06/23/24 03:18 DC Pantoprazole Sodium (PROTonix 40MG INJ) 40 mg BID IVP 06/23/24 09:00 07/23/24 08:59 06/26/24 08:40 40 MG Pantoprazole Sodium (PROTonix 40MG INJ) 40 mg DAILY IV 06/23/24 09:00 06/23/24 03:19 DC Pharmacy Profile Note (Lace Assessment) 1 each AD MISC 06/24/24 14:00 06/24/24 13:53 DC Pharmacy Profile Note (Pharmacy Communication) 1 each ONCE MISC 06/23/24 14:00 3/4/25 13:46 DC Pharmacy Profile Note (Pharmacy Communication) 1 each ONCE STAT MISC 06/25/24 17:11 06/25/24 17:24 DC Phenylephrine HCl 100 mg/Sodium Chloride 250 ml @ 0 mls/hr PROTOCOL IV 06/23/24 08:30 07/23/24 08:29 06/23/24 13:00 32.67 MLS/HR Piperacillin Sod/ Tazobactam Sod (Zosyn 3.375gm+NS 50ml) 3.375 gm Q8H IVPB 06/23/24 03:30 06/23/24 04:34 DC Potassium Chloride 100 ml @ 50 mls/hr AD PRN IV POTASSIUM PROTOCOL 06/23/24 05:30 07/23/24 05:29 06/26/24 08:41 50 MLS/HR Propofol (DIPRivan 1000MG/ 100ML) 1,000 mg PROTOCOL PRN IV SEDATION 06/23/24 03:30 07/23/24 03:29 06/23/24 04:06 1,000 MG Sodium Bicarbonate 150 meq/Dextrose 1,150 ml @ 50 mls/hr Q23H IVP 06/23/24 13:00 06/25/24 17:25 DC 06/24/24 19:34 50 MLS/HR Sodium Bicarbonate 150 meq/Sodium Chloride 1,150 ml @ 50 mls/hr Q23H IVP 06/25/24 17:30 06/25/24 17:52 DC 06/25/24 17:42 50 MLS/HR Sodium Bicarbonate 150 meq/Sterile Water 1,150 ml @ 50 mls/hr Q23H IVP 06/25/24 18:00 07/25/24 17:59 06/25/24 18:18 50 MLS/HR Sodium Chloride 1,000 ml @ 0 mls/hr Q0M IV 06/23/24 12:00 07/23/24 11:59 06/23/24 15:43 1,000 MLS/HR Sodium Chloride (NS 50ml) 50 ml AD IV 06/23/24 03:30 06/23/24 03:26 DC Vasopressin 20 units/Sodium Chloride 100 ml @ 0 mls/hr PROTOCOL IV 06/22/24 20:30 07/22/24 20:29 06/24/24 08:43 6 MLS/HR DIAGNOSTICS / RADIOLOGY: [ ] ASSESSMENT: Septic shock, POA Acute hypoxic Respiratory failure POA Acute encephalopathy, in the setting of severe sepsis POA Acute bowel perforation, with subsequent peritonitis s/p exploratory laparotomy 06/23/2024 Dr. Valenzuela POA Urinary tract infection, POA, E coli Acute kidney injury, POA Lactic acidosis, POA, improving Chronic debility, POA DM type 2, POA GERD, POA History small-bowel obstruction History of fibromyalgia Hypertension, now hypotensive in the setting of septic shock Sacral ulcer, POA PLAN: Suspected septic shock, POA Continue IV antibiotic ceftazidime , metronidazole, linezolid q.12h, fluconazole as per ID recommendations Continue IV fluids Acute hypoxic Respiratory failure POA Intubated [PEEP 5, TV 450]and sedated [ on fentanyl and midazolam] Continue ICU care Complete bedrest and Intubation watch Monitor O2 levels and keep saturation above 92% Continue hydrocortisone 50 mg q.6 H Sputum Culture resulted in E coli Acute bowel perforation, with subsequent peritonitis Underwent exploratory laparotomy on 06/23/2024 by The abdominal wound was left open, covered with foam and a surgical drape. A black foam dressing was applied on top and secured with a wound VAC by the wound care today Scheduled for wound closure today by surgery consult. Acute encephalopathy, in the setting of severe sepsis POA Continue IV fluids and antibiotics Monitor lactic acid, electrolyte levels Replace electrolytes as per the protocol, if needed Urinary tract infection, POA, Gram-negative rods Urine culture resulted in E coli Continue IV antibiotics as per ID recommendation Acute kidney injury, POA BUN 26, creatinine 1.5 Continue IV fluids I&Os Daily weights Avoid NSAIDS, Nephrotoxic drugs and contrast Adjust the medication dose to renal dosing DM type 2, POA, GERD, POA Continue Insulin sliding scale Continue Protonix IV Glucometer checks Hypotension, in view of septic shock Blood pressure is ranging in 110s/60s Sacral ulcer, POA Follow up on wound care consult recommendations Patient is currently on a bicarb drip at the rate 50 mL/hour Q 23H in view of lactic acidosis by critical care consult LEI LEPE MD Jun 26, 2024 13:43
[2024-06-26] MEDS: hydroCORTisone SOD SUCCINATE 100 MG/2 ML VIAL IV SCH (14:33)
--- NOTE | 2024-06-26 14:40 | PN ---
INFECTIOUS DISEASE PROGRESS NOTE Date of Service: Jun 26, 2024 SUBJECTIVE: This is a 73-year-old female patient who was seen and examined at bedside in the ICU room 218. Patient is intubated and sedated. Patient underwent a right transverse colon resection with anastomosis and wound VAC placement as well as right colostomy and left urostomy this morning. The WBC has trended down to a normal level of 6.9. No fever, temperature is 97.0. The platelets level dropped to 70 and we will discontinue linezolid. Patient continues on ceftazidime, metronidazole and fluconazole. We will continue to follow patient's care. PHYSICAL EXAM EYES: Anicteric. Pupils equal and reactive. HENT: No oral thrush seen, moist Oral mucosa. NECK: Supple, no JVD or thyromegaly. LUNGS: Good air entry. No rales, no rhonchi. Mechanical ventilation. CARDIOVASCULAR: S1, S2 regular. No murmur heard. ABDOMEN: Soft, non tender, bowel sounds present, no organomegaly. Open surgical incision with a wound VAC. Right colostomy. Left Urostomy. CENTRAL NERVOUS SYSTEM: Intubated and sedated. SKIN: No rashes, no swelling. LYMPHATICS: No peripheral lymphadenopathy. MUSCULOSKELETAL: No joint swelling, erythema or tenderness. EXTREMITIES: No cyanosis or clubbing. BACK: No deformity, no pressure ulcer. GENITOURINARY: No dysuria or hematuria. Hearn catheter. Vital Sign (Last 12 Hours) 06/26/24 06/26/24 06/26/24 06/26/24 02:45 03:00 03:15 03:30 Pulse 76 74 73 72 Resp 14 14 14 14 B/P (MAP) 119/68 (85) 121/68 (85) 120/67 (84) 121/67 (85) Pulse Ox 99 99 99 99 06/26/24 06/26/24 06/26/24 06/26/24 03:45 04:00 04:00 04:00 Temp 97.2 Pulse 73 73 Resp 14 14 B/P (MAP) 136/73 (94) 122/68 (86) Pulse Ox 99 99 98 O2 Delivery Ventilator+ FiO2 30 06/26/24 06/26/24 06/26/24 06/26/24 04:15 04:30 04:38 04:45 Pulse 73 76 77 76 Resp 14 14 14 B/P (MAP) 114/64 (81) 117/65 (82) 73/5 (27) Pulse Ox 99 99 99 FiO2 30 06/26/24 06/26/24 06/26/24 06/26/24 05:00 05:15 05:30 05:45 Pulse 77 80 76 78 Resp 14 14 14 14 B/P (MAP) 107/62 (77) 103/59 (74) 104/61 (75) 103/61 (75) Pulse Ox 99 98 98 98 06/26/24 06/26/24 06/26/24 06/26/24 06:00 06:15 06:30 06:30 Pulse 79 78 81 Resp 14 14 14 B/P (MAP) 101/59 (73) 100/59 (73) 113/65 (81) Pulse Ox 98 98 98 FiO2 30 06/26/24 06/26/24 06/26/24 06/26/24 06:30 06:45 07:00 07:15 Pulse 78 80 79 78 Resp 14 14 14 B/P (MAP) 107/63 (78) 103/61 (75) 100/59 (73) Pulse Ox 98 98 98 FiO2 30 06/26/24 06/26/24 06/26/24 06/26/24 07:30 07:45 08:00 08:00 Temp 97.0 97.0 Pulse 80 80 80 Resp 14 14 14 B/P (MAP) 101/60 (74) 97/57 (70) 96/58 (71) Pulse Ox 98 98 98 06/26/24 06/26/24 06/26/24 06/26/24 08:00 08:15 08:30 08:45 Pulse 78 79 77 Resp 14 14 14 B/P (MAP) 94/56 (69) 98/58 (71) 91/55 (67) Pulse Ox 98 98 98 98 O2 Delivery Ventilator+ FiO2 30 06/26/24 06/26/24 06/26/24 06/26/24 09:00 09:15 09:30 09:45 Pulse 75 76 76 76 Resp 14 14 14 14 B/P (MAP) 90/54 (66) 91/54 (66) 91/55 (67) 91/55 (67) Pulse Ox 98 98 98 98 06/26/24 06/26/24 06/26/24 09:55 10:35 13:17 Pulse 74 123 FiO2 30 30 30 Intake & Output (last 24hrs) 06/25/24 06/25/24 06/26/24 15:00 23:00 07:00 Intake Total 1942.0 ml 1993.0 ml 2267.0 ml Output Total 1450 ml 2500 ml Balance 1942.0 ml 543.0 ml -233.0 ml LABS: Laboratory: Test 06/26/24 13:40 06/26/24 10:04 06/26/24 05:02 06/25/24 11:11 Range/Units Whole Blood Glucose 143 H 70-110 MG/DL Blood Gas Specimen Type Arterial Arterial Blood pH 7.464 H 7.350-7.450 Arterial Blood Partial Pressure CO2 39 32-45 mmHg Arterial Blood Partial Pressure O2 103.8 83.0-108.0 mmHg Arterial Blood HCO3 27.2 21.0-28.0 mmol/L Arterial Blood Oxygen Saturation 97.2 94.0-98.0 % Arterial Blood Base Excess 3.2 H -2.0-3.0 mmol/L Hemoglobin (Blood Gas) 9.4 L 12.0-16.0 g/dL Sodium (Blood Gas) 129 L 136-145 MMOL/L Bedside Potassium (Blood Gas) 3.1 L 3.4-4.5 MMOL/L Bedside Chloride (Blood Gas) 97 L 98-107 MMOL/L Bedside Glucose (Blood Gas) 160 H 65-95 MG/DL Bedside Ionized Calcium (Blood Gas) 1.00 L 1.15-1.33 MMOL/L Bedside Lactic Acid (Blood Gas) 2.32 H 0.36-0.75 MMOL/L Blood Gas Temperature 37.0 35.5-37.0 CELSIUS Blood Gas Respiration Rate 14.0 min. Blood Gas Vent Mode AC-VC ROOM AIR FiO2 30.0 % Blood Gas Tidal Volume 450 ml Blood Gas PEEP 5 cm H2O Blood Gas Specimen Comment A-LINE White Blood Count 6.9 4.8-10.8 K/uL Red Blood Count 3.15 L 4.00-5.50 MIL/uL Hemoglobin 9.3 L 12.0-16.0 g/dL Hematocrit 26.0 L 36-48 % Mean Corpuscular Volume 82.5 79-99 fL Mean Corpuscular Hemoglobin 29.5 27.0-33.0 pg Mean Corpuscular Hemoglobin Concent 35.8 32.0-36.0 g/dL Red Cell Distribution Width 14.9 11.0-15.5 % Platelet Count 70 #L 130-400 K/uL Mean Platelet Volume 9.1 7.5-10.5 fL Nucleated Red Blood Cells 0.6 H 0.0-0.19 % Sodium Level 134 L 136-145 mmol/L Potassium Level 2.9 *L 3.5-5.1 mmol/L Chloride Level 98 L 101-111 mmol/L Carbon Dioxide Level 32 21-32 mmol/L Blood Urea Nitrogen 28 H 7-18 mg/dL Creatinine 1.4 H 0.5-1.0 mg/dL Glomerular Filtration Rate Calc 40 >90 mL/min Random Glucose 214 H 70-105 mg/dL Total Calcium 6.8 L 8.5-10.1 mg/dL Bedside Glucose Comment Notified Nurse Test 06/25/24 08:07 06/25/24 04:16 06/24/24 15:50 Range/Units Lactic Acid Level 3.8 H 0.8-2.5 mmol/L Immature Granulocyte % (Auto) 1.5 H 0-1 % Neutrophils (%) (Auto) 89.9 H 40.0-77.0 % Lymphocytes (%) (Auto) 6.6 L 21.0-51.0 % Monocytes (%) (Auto) 1.9 L 3.0-13.0 % Eosinophils (%) (Auto) 0.0 0.0-8.0 % Basophils (%) (Auto) 0.1 0.0-5.0 % Neutrophils # (Auto) 10.1 H 1.8-7.7 K/uL Lymphocytes # (Auto) 0.7 L 1.0-4.8 K/uL Monocytes # (Auto) 0.2 0.1-1.0 K/uL Eosinophils # (Auto) 0.00 0.00-0.70 K/uL Basophils # (Auto) 0.01 0.00-0.20 K/uL Absolute Immature Granulocyte (auto 0.17 0-1 K/uL Magnesium Level 2.10 1.80-2.40 mg/dL ASSESSMENT: Nontraumatic intestinal perforation, s/p exploratory laparotomy on 06/22/2024 and right transverse colon resection with anastomosis and wound VAC application as well as right colostomy and left urostomy today. Generalized peritonitis with E coli. Septic shock. Leukocytosis, resolving. Urinary tract infection with E coli. Acute on chronic renal failure. Thrombocytopenia. PLAN: Discontinue linezolid. Continues on ceftazidime. Continue on fluconazole. Continue on metronidazole IV. Continue GI prophylaxis. Continue critical care support. Continue vasopressor support. Continue mechanical ventilation. Avoid nephrotoxic medications. This case was reviewed and discussed with my supervising physician and the above assessment and plan was formulated and agreed upon. ATTESTATION BY PHYSICIAN I have seen and examined the patient. I reviewed the documentation, medical decision making, and treatment plan as noted by the mid-level provider above. I agree with the findings and plan of care. GOSIA INIGUEZ MD, [facility] Jun 26, 2024 14:40
--- NOTE | 2024-06-26 14:52 | NUR ---
patient with tachycardia after coming back from OR. LUPILLO Wolf made aware. Orders for 500ml LR bolus IV once and serial H&H labs placed and executed
[2024-06-26 15:12] LABS: HEMATOCRIT 22.6 % (36-48)
[2024-06-26] MEDS: LACTATED RINGERS 500 ML 500 ML IV ONE (15:43)
--- NOTE | 2024-06-26 16:02 | EKG ---
[facility] Test Date: 2024-06-26 Test Time: 16:01:58 Pat Name: JOSÉ MIGUEL OSORIO Department: [facility] Room: 218 1 Gender: F Hospital Secretary: JUAN MANUEL : 1950 Requested By: GERALD LAWRENCE Order Number: [id number] Reading MD: Teja Marte Measurements Intervals [place] Rate: 136 P: 24 AK: 128 QRS: 46 QRSD: 76 T: 224 QT: 294 QTc: 442 Interpretive Statements Sinus tachycardia Low voltage QRS Cannot rule out Anterior infarct , age undetermined Compared to ECG 06/23/2024 08:51:33 Low QRS voltage now present Myocardial infarct finding now present T-wave abnormality no longer present Electronically Signed On 06-27-2024 12:02:05 [employer] by Teja Marte Please click the below link to view image of tracing.
[2024-06-26 16:17] LABS: MAGNESIUM 1.5 mg/dL (1.80-2.40); POTASSIUM 3.7 mmol/L (3.5-5.1)
[2024-06-26] MEDS: CALCIUM GLUC 1GM 1 GM in 0.9%NACL 100ML 100 ML IV SCH (16:57)
[2024-06-26] MEDS: CALCIUM GLUC 1GM/10ML VIAL ONE (17:00)
[2024-06-26] MEDS: metoPROLOL tartRATE 1 MG/ML 5ML VIAL IV SCH (17:28)
[2024-06-26] MEDS: metoPROLOL tartRATE 1 MG/ML 5ML VIAL IV ONE (17:28)
[2024-06-26] MEDS ORDERED: ALBUMIN (HUMAN) 25% 50 ML IV SCH (17:30)
[2024-06-26] MEDS: ALBUMIN (HUMAN) 5% 250 ML IV ONE (17:32)
[2024-06-26] MEDS: ALBUMIN (HUMAN) 5% 250 ML IV SCH (17:36)
[2024-06-26 19:09] LABS: HEMATOCRIT 19.1 % (36-48)
--- NOTE | 2024-06-26 19:52 | NUR ---
Dr. Oswald and Luciano, ST[employer] MECH[employer]IC notified of H&H decreasing and that patient is in oliguria. Two units of PRBCs, LR 75 ml/hr, coagulation studies, and CBC labs were placed and executed.
[2024-06-26 19:54] LABS: ABG HCO3 24.3 mmol/L (21.0-28.0); ABG OXYGEN SATURATION 94.3 % (94.0-98.0); ABG PCO2 51 mmHg (32-45); ABG PH 7.298 (7.350-7.450); CARBON MONOXIDE 0.3 % (0.5-1.5); DEVICE COMMENT AL,RNJAMES; HHb 5.6; PO2, ARTERIAL BG 77.4 mmHg (83.0-108.0); VENT MODE, BG AC R14 450 30 (ROOM AIR)
[2024-06-26 19:59] LABS: MEAN CORPUSCULAR HEMOGLOBIN 30.6 pg (27.0-33.0); MEAN CORPUSCULAR VOLUME 87.6 fL (79-99); NUCLEATED RED BLOOD CELLS 0.7 % (0.0-0.19); RED BLOOD CELL COUNT(AUTO) 2.09 MIL/uL (4.00-5.50); RED CELL DISTRIBUTION WIDTH 16.2 % (11.0-15.5); WHITE BLOOD COUNT (AUTO) 7.2 K/uL (4.8-10.8)
[2024-06-26 20:01] LABS: HEMATOCRIT 18.3 % (36-48)
[2024-06-26 20:12] LABS: INR 1.31 (0.85-1.15); PROTHROMBIN TIME 13.5 SEC (9.6-11.6)
[2024-06-26 20:14] LABS: PARTIAL THROMBOPLASTIN TIME 67.5 SEC (26.3-35.5)
[2024-06-26] MEDS: FENTanyl 2500MCG+NS 250ML 250 ML IV ONE (20:23)
[2024-06-26 20:29] LABS: ALBUMIN 1.6 g/dL (3.5-5.0); BILIRUBIN,TOTAL 0.6 mg/dL (0.2-1.0); CREATININE 1.4 mg/dL (0.5-1.0); POTASSIUM 3.9 mmol/L (3.5-5.1); TOTAL PROTEIN, SERUM 3.2 g/dL (6.0-8.3)
[2024-06-26] MEDS ORDERED: FENTanyl CITRate PF 0.05 MG/ML 2,500 MCG in 0.9% NACL 250ML 200 ML IV PRN (20:30)
[2024-06-26] MEDS: LACTATED RINGERS 1000ML 1,000 ML IV SCH (20:30)
--- NOTE | 2024-06-26 20:45 | NUR ---
Spoke to Blood bank previous type and screen is . When type and screen is complete laundry technician will contact this nurse to rock picker PRBC to be transfused.
--- NOTE | 2024-06-26 21:50 | NUR ---
Spoke to Kye SANDERSON from [facility]. Informed him of patients most recent ABG results, Lactic Acid, H&H, and pending blood transfusion due to type and screen being run. Informed of patients condition. Provider informed that the Na bicarb drip has been discontinued. Provider ordered for na bicarb drip to continue at current rate 50 ml/hr. ABG + to be done once transfusion of two units is complete.
[2024-06-26] MEDS: M.V.I. IV [ADULT] 10 ML in CLINIMIX-E 5%AA /D15%W 2000ML 2,000 ML IV NR (21:58)
[2024-06-26] MEDS ORDERED: SODIUM BICARB 8.4% 50ML SYRING 150 MEQ in DEXTROSE 5%-WATER 1,000 ML IV SCH (23:00)
[2024-06-27] VITALS (90 sets, daily range): BP systolic 89–148; BP diastolic 48–108; PULSE 81–131; RESP 5–62; TEMP 96.7–98.6; O2SAT 95–100
[2024-06-27] MEDS: SODIUM BICARB 8.4% 50ML SYRING 150 MEQ in DEXTROSE 5%-WATER 1,000 ML IVP SCH (00:56)
--- NOTE | 2024-06-27 01:05 | NUR ---
As per VANI WESLEY from critical care, change respiratory rate on the ventilator to 18. Addendum: 06/27/24 at 0108 by VEL ROTHMAN RN RN RT informed of frannie order
[2024-06-27 03:35] LABS: ABG BASE EXCESS 2.3 mmol/L (-2.0-3.0); ABG HCO3 26.1 mmol/L (21.0-28.0); ABG OXYGEN SATURATION 96.9 % (94.0-98.0); ABG PCO2 37 mmHg (32-45); ABG PH 7.465 (7.350-7.450); CARBON MONOXIDE 0.3 % (0.5-1.5); DEVICE COMMENT AL,RNJAMES; HHb 3.1; PO2, ARTERIAL BG 92.8 mmHg (83.0-108.0); VENT MODE, BG AC (ROOM AIR)
[2024-06-27 04:57] LABS: HEMATOCRIT 25.2 % (36-48)
[2024-06-27 05:22] LABS: CREATININE 1.3 mg/dL (0.5-1.0); MAGNESIUM 1.8 mg/dL (1.80-2.40); POTASSIUM 3.7 mmol/L (3.5-5.1)
[2024-06-27 06:44] LABS: HEMATOCRIT 24.6 % (36-48); MEAN CORPUSCULAR HEMOGLOBIN 29.1 pg (27.0-33.0); MEAN CORPUSCULAR HGB CONC 34.6 g/dL (32.0-36.0); MEAN CORPUSCULAR VOLUME 84.2 fL (79-99); RED BLOOD CELL COUNT(AUTO) 2.92 MIL/uL (4.00-5.50); RED CELL DISTRIBUTION WIDTH 15.5 % (11.0-15.5); WHITE BLOOD COUNT (AUTO) 6.1 K/uL (4.8-10.8)
[2024-06-27] MEDS: FENTanyl 2500MCG+NS 250ML 250 ML IV SCH (07:23)
--- NOTE | 2024-06-27 08:59 | HMCIMG ---
CHEST 1VW HISTORY: Intubation COMPARISON: 06/26/2024 FINDINGS: A frontal projection of the chest was obtained. There are bilateral pulmonary infiltrates suggestive of pulmonary vascular congestion with possible superimposed pneumonitis. Endotracheal tube is seen with distal tip at 4.5 cm above amy. Heart is borderline enlarged. All the lines and tubes are again seen in place. No evidence of aortic calcification is seen. IMPRESSION: 1. Bilateral pulmonary infiltrates are seen suggestive of pulmonary vascular congestion with possible superimposed pneumonitis.
--- NOTE | 2024-06-27 11:58 | PN ---
INFECTIOUS DISEASE PROGRESS NOTE Date of Service: Jun 27, 2024 SUBJECTIVE: This is a 73-year-old female patient who was seen and examined at bedside in the ICU room 218. Patient is mechanical ventilated and remains sedated. Patient is off pressors at this time. Patient is status post exploratory laparotomy on 06/22/2024 and right transverse colon resection with anastomosis and wound VAC placement as well as right colostomy and left urostomy day # 1. Patient is afebrile this morning, temperature is 98.2 and the WBC is 6.1. Patient has received 2 units of PRBC throughout the night and this morning for hemoglobin of 6.4 and will receive 1 unit of platelets for platelet level of 34. The linezolid was discontinued yesterday. Patient continues on ceftazidime, metronidazole and fluconazole. We will continue to follow patient's care. PHYSICAL EXAM EYES: Anicteric. Pupils equal and reactive. HENT: No oral thrush seen, moist Oral mucosa. NECK: Supple, no JVD or thyromegaly. LUNGS: Good air entry. No rales, no rhonchi. Mechanical ventilation. CARDIOVASCULAR: S1, S2 regular. No murmur heard. ABDOMEN: Soft, non tender, bowel sounds present, no organomegaly. Open surgical incision with a wound VAC. Right colostomy. Left Urostomy. CENTRAL NERVOUS SYSTEM: Intubated and sedated. SKIN: No rashes, no swelling. LYMPHATICS: No peripheral lymphadenopathy. MUSCULOSKELETAL: No joint swelling, erythema or tenderness. EXTREMITIES: No cyanosis or clubbing. BACK: No deformity, no pressure ulcer. GENITOURINARY: No dysuria or hematuria. Hearn catheter. Vital Sign (Last 12 Hours) 06/27/24 06/27/24 06/27/24 06/27/24 00:00 00:00 00:05 00:15 Pulse 82 96 81 Resp 49 B/P (MAP) 147/77 (100) 133/76 (95) 127/66 (86) 125/66 (85) Pulse Ox 95 100 100 O2 Delivery Ventilator+ FiO2 30 30 06/27/24 06/27/24 06/27/24 06/27/24 00:18 00:30 00:45 01:00 Pulse 81 83 84 Resp 5 14 B/P (MAP) 148/76 (100) 134/74 (94) 140/75 (96) 125/65 (85) 122/64 (83) 120/63 (82) Pulse Ox 100 100 100 FiO2 30 06/27/24 06/27/24 06/27/24 06/27/24 01:15 01:30 01:45 02:00 Pulse 83 83 83 85 Resp 18 18 19 18 B/P (MAP) 134/73 (93) 144/72 (96) 131/72 (91) 139/76 (97) 117/62 (80) 119/63 (81) 113/60 (77) 117/62 (80) Pulse Ox 100 100 100 99 06/27/24 06/27/24 06/27/24 06/27/24 02:15 02:30 02:45 03:00 Pulse 85 85 87 87 Resp 18 18 18 18 B/P (MAP) 132/71 (91) 134/70 (91) 136/71 (92) 131/70 (90) 112/60 (77) 111/59 (76) 113/61 (78) 110/59 (76) Pulse Ox 99 99 99 99 06/27/24 06/27/24 06/27/24 06/27/24 03:15 03:29 03:30 03:39 Pulse 89 89 92 Resp 18 18 B/P (MAP) 136/70 (92) 129/71 (90) 110/59 (76) 109/58 (75) Pulse Ox 99 99 FiO2 30 30 06/27/24 06/27/24 06/27/24 06/27/24 03:45 04:00 04:00 04:15 Temp 96.6 Pulse 90 89 88 Resp 18 18 18 B/P (MAP) 136/70 (92) 126/70 (88) 131/69 (89) 108/58 (75) 105/57 (73) 109/59 (76) Pulse Ox 99 99 99 99 O2 Delivery Ventilator+ FiO2 30 06/27/24 06/27/24 06/27/24 06/27/24 04:30 05:00 05:15 05:30 Pulse 89 89 89 94 Resp 18 18 18 18 B/P (MAP) 129/66 (87) 109/56 (73) 127/65 (85) 117/61 (79) 106/57 (73) Pulse Ox 99 99 99 99 06/27/24 06/27/24 06/27/248/25 05:33 05:45 06:00 06:15 Pulse 94 93 94 91 Resp 18 21 36 23 B/P (MAP) 131/75 (93) 132/75 (94) 132/76 (94) 131/73 (92) 116/61 (79) 116/61 (79) 110/59 (76) 108/56 (73) Pulse Ox 98 99 98 06/27/24 06/27/24 06/27/24 06/27/24 06:29 06:43 06:45 07:00 Pulse 90 90 91 Resp 35 18 B/P (MAP) 131/74 (93) 132/76 (94) 109/57 (74) 118/62 (80) Pulse Ox 95 FiO2 30 30 06/27/24 06/27/24 06/27/24 06/27/24 07:15 07:30 07:35 07:45 Temp 98.2 Pulse 89 91 89 Resp 18 42 40 B/P (MAP) 136/79 (98) 138/79 (98) 133/78 (96) 124/64 (84) 123/64 (83) 118/62 (80) Pulse Ox 100 100 100 06/27/24 06/27/24 06/27/24 06/27/24 08:00 08:15 08:15 08:30 Pulse 90 96 96 Resp 22 21 17 B/P (MAP) 130/70 (90) 130/70 (90) 117/65 (82) Pulse Ox 100 100 100 100 O2 Delivery Ventilator+ FiO2 30 06/27/24 06/27/24 06/27/24 06/27/24 08:45 09:00 09:15 10:00 Pulse 100 99 102 Resp 19 16 23 B/P (MAP) 128/72 (90) 115/65 (82) 109/62 (78) 119/66 (83) Pulse Ox 100 100 100 FiO2 30 06/27/24 10:32 Pulse 101 FiO2 30 Intake & Output (last 24hrs) 06/26/24 06/26/24 06/27/24 15:00 23:00 07:00 Intake Total 1535.8 ml 2965.2 ml 2778.0 ml Output Total 950 ml 1430 ml Balance 1535.8 ml 2015.2 ml 1348.0 ml LABS: Laboratory: Test 06/27/24 10:47 06/27/24 06:34 06/27/24 04:43 06/27/24 04:42 Range/Units Whole Blood Glucose 133 H 70-110 MG/DL White Blood Count 6.1 4.8-10.8 K/uL Red Blood Count 2.92 #L 4.00-5.50 MIL/uL Hemoglobin 8.5 L 12.0-16.0 g/dL Hematocrit 24.6 L 36-48 % Mean Corpuscular Volume 84.2 79-99 fL Mean Corpuscular Hemoglobin 29.1 27.0-33.0 pg Mean Corpuscular Hemoglobin Concent 34.6 32.0-36.0 g/dL Red Cell Distribution Width 15.5 11.0-15.5 % Platelet Count 34 #L 130-400 K/uL Mean Platelet Volume 11.0 H 7.5-10.5 fL Nucleated Red Blood Cells 0.0 0.0-0.19 % Sodium Level 132 L 136-145 mmol/L Potassium Level 3.7 3.5-5.1 mmol/L Chloride Level 98 L 101-111 mmol/L Carbon Dioxide Level 29 21-32 mmol/L Blood Urea Nitrogen 30 H 7-18 mg/dL Creatinine 1.3 H 0.5-1.0 mg/dL Glomerular Filtration Rate Calc 43 >90 mL/min Random Glucose 174 H 70-105 mg/dL Total Calcium 6.8 L 8.5-10.1 mg/dL Magnesium Level 1.80 1.80-2.40 mg/dL Lactic Acid Level 2.7 H 0.8-2.5 mmol/L Test 06/27/24 03:32 06/26/24 19:45 Range/Units Blood Gas Specimen Type Arterial Arterial Blood pH 7.465 H 7.350-7.450 Arterial Blood Partial Pressure CO2 37 32-45 mmHg Arterial Blood Partial Pressure O2 92.8 83.0-108.0 mmHg Arterial Blood HCO3 26.1 21.0-28.0 mmol/L Arterial Blood Oxygen Saturation 96.9 94.0-98.0 % Arterial Blood Base Excess 2.3 -2.0-3.0 mmol/L Hemoglobin (Blood Gas) 9.1 L 12.0-16.0 g/dL Sodium (Blood Gas) 127 L 136-145 MMOL/L Bedside Potassium (Blood Gas) 3.5 3.4-4.5 MMOL/L Bedside Chloride (Blood Gas) 96 L 98-107 MMOL/L Bedside Glucose (Blood Gas) 158 H 65-95 MG/DL Bedside Ionized Calcium (Blood Gas) 1.00 L 1.15-1.33 MMOL/L Bedside Lactic Acid (Blood Gas) 2.88 H 0.36-0.75 MMOL/L Blood Gas Temperature 37.0 35.5-37.0 CELSIUS Blood Gas Respiration Rate 18.0 min. 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 Generalized peritonitis with E coli. Septic shock. Leukocytosis, resolving. Urinary tract infection with E coli. Thrombocytopenia, requiring platelet transfusion. Postoperative anemia requiring blood transfusion. Acute on chronic renal failure, resolving. PLAN: Continues on ceftazidime. Continue on fluconazole. Continue on metronidazole IV. Continue GI prophylaxis. Continue critical care support. Continue vasopressor support. Continue mechanical ventilation. PRBCs and platelets being transfused. Avoid nephrotoxic medications. This case was reviewed and discussed with my supervising physician and the above assessment and plan was formulated and agreed upon. ATTESTATION BY PHYSICIAN I have seen and examined the patient. I reviewed the documentation, medical decision making, and treatment plan as noted by the mid-level provider above. I agree with the findings and plan of care. GOSIA INIGUEZ MD, [facility] Jun 27, 2024 11:58
--- NOTE | 2024-06-27 16:01 | PN ---
[facility] PROGRESS NOTE Date of Service: Jun 27, 2024 Time of Service: 16:01 SUBJECTIVE: Ms. Chandler is a 73-year-old female, with a past medical history of hypertension, hypothyroidism, DM, anemia, fibromyalgia, recurrent SpO2 is, chronic left hip pain, cervical CA presented to the ER with the complaints of sharp CBC left lower quadrant abdominal pain with nausea and vomiting since 2 days. Initial vitals blood pressure 62/50 which improved on Levophed. Initial labs WBCs 26.3, lactic acid 6.7. CT abdomen/pelvis resulted in Large amount of free abdominal air is seen concerning for bowel perforation. Surgery consult was obtained. 06/23/2024 postop patient is seen and examined at the bedside. She is sedated on Diprivan and intubated. She underwent exploratory laparotomy 06/23/24 Dr. Valenzuela for perforated small bowel and subsequent peritonitis this morning. Vitals blood pressure 104/58, heart rate 146 on Phenylephrine and vasopressin. Labs WBC 37.4, BUN 2 , creatinine 1.7, magnesium 0.90, TSH 16.6. Lactic acid improved from 7.7- 5. Urinalysis positive for leukocyte esterase. Chest x-ray revealed prominent bilateral interstitial markings. 06/24/2024 Patient is seen at the bedside. She is currently sedated on fentanyl and midazolam. Vitals blood pressure 131/72 on vasopressin. Currently intubated with VT 450, peep 5 and respiratory rate 14. Labs WBC improved from 31.5-26.7, hemoglobin 11.2, BUN 25 , creatinine 2 , lactic acid 10.3. Urine culture resulted in E coli. 06/25/2024 Patient is seen at the bedside. She remains intubated and sedated on fentanyl and midazolam. Vitals blood pressure in 110s/60s. Labs WBC improved from 26.7-11.2, hemoglobin 10.3, BUN 26, creatinine improved from 2-1.5, lactic acid improved from 4.5-3.5. Urine culture, respiratory culture and abdominal site culture resulted in E coli organism. 06/26/24 patient remains sedated and intubated. She has gone down to OR for extensive abdominal surgery 06/27/24 Patient is mechanical ventilated and remains sedated. Patient is off pressors at this time. Patient is status post exploratory laparotomy on 06/22/2024 and right transverse colon resection with anastomosis and wound VAC placement as well as right colostomy and left urostomy day # 1. Patient is afebrile this morning, temperature is 98.2 and the WBC is 6.1. Patient has received 2 units of PRBC throughout the night and this morning for hemoglobin of 6.4 and will receive 1 unit of platelets for platelet level of 34. The linezolid was discontinued yesterday. Patient continues on ceftazidime, metronidazole and fluconazole REVIEW OF SYSTEMS: Not able to get a proper history as the patient is sedated CONSTITUTIONAL: Denies fevers, chills, or night sweats. No unintentional weight loss reported. NEUROLOGICAL: Denies headache, amaurosis fugax, motor weakness, sensory deficit, vertigo/spinning sensation, gait abnormalities, or tremors. ENT: No hearing loss, otalgia, otorrhea, rhinitis, rhinorrhea, hoarseness, or sore throat. CARDIOVASCULAR: Denies any exertional angina, dyspnea on exertion, orthopnea, paroxysmal nocturnal dyspnea, palpitations, life-threatening arrhythmias, claudication. PULMONARY: Denies any shortness of breath, cough, phlegm/sputum, hemoptysis, pleuritic chest pain. SLEEP: Denies morning headaches, daytime somnolence or napping. Denies difficulty falling asleep, staying asleep, waking from sleep. Denies knowledge of snoring. GASTROINTESTINAL: Denies any type of dysphagia to either liquids or solids. Denies nausea, vomiting, pyrosis, early satiety, abdominal pain, diarrhea, constipation, or changes in stool consistency or caliber. Denies coffee-ground emesis, hematemesis, hematochezia, or melanotic stools. GENITOURINARY: Denies frequency, urgency, nocturia, hematuria or incontinence (Storage/Irritative symptoms.) Low urinary stream, straining to void, urinary intermittency or hesitancy, splitting of the voiding stream, terminal dribbling. ENDOCRINOLOGIC: Denies polyuria, polydipsia, polyphagia or heat/cold intolerances. HEMATOLOGIC: Denies thrombophilia/previous clots, or coagulopathy/bleeding disorders. ONCOLOGIC: Denies personal history of malignancy. DERMATOLOGIC: Denies rashes or pruritus. PSYCHIATRIC: Denies any suicidal or homicidal ideation. Denies hallucinations. PHYSICAL EXAM GENERAL APPEARANCE: The patient is sedated NEUROLOGICAL: Cranial nerves II-XII grossly intact. Motor is 5/5 in bilateral upper and lower extremities proximal to distal. No sensory deficits. HEENT: Face is symmetric. Pupils are equal and reactive. Extraocular movements are intact. NECK: Supple. No JVD. No thyromegaly. No submental, submandibular, pre- /postauricular, occipital or supraclavicular lymphadenopathy. CHEST: Normal chest expansion. No Telemetry. LUNGS: Absence of any rales, rhonchi or any wheezing. CARDIOVASCULAR: Regular. S1 and S2 normal. No appreciable rubs, murmurs or gallops. ABDOMEN: Soft, nontender, and nondistended. There is no rebound, voluntary guarding, or rigidity. : Deferred. No Hearn. EXTREMITIES: Non-edematous and not cyanotic. No clubbing. Good capillary refill. SKIN: No skin breakdown. Vital Signs (last 8hr) Date Time Temp Pulse Resp B/P (MAP) Pulse Ox O2 Delivery O2 Flow Rate FiO2 06/27/24 15:08 128 30 06/27/24 15:00 30 06/27/24 12:15 100 Ventilator+ 30 06/27/24 12:00 120 27 100 125/77 (93) 06/27/24 12:00 98.2 06/27/24 11:45 116 42 139/85 (103) 100 129/78 (95) 06/27/24 11:45 111 30 06/27/24 11:30 112 28 100 125/75 (92) 06/27/24 11:00 108 25 100 129/73 (91) 06/27/24 10:45 105 16 134/77 (96) 100 120/69 (86) 06/27/24 10:32 101 30 06/27/24 10:30 101 23 100 128/70 (89) 06/27/24 10:00 30 06/27/24 10:00 102 17 100 127/71 (89) 06/27/24 09:45 100 21 141/78 (99) 100 131/72 (91) 06/27/24 09:30 99 20 100 120/66 (84) 06/27/24 09:15 102 23 100 119/66 (83) 06/27/24 09:00 99 16 100 109/62 (78) 06/27/24 08:45 100 19 128/72 (90) 100 115/65 (82) 06/27/24 08:30 96 17 100 117/65 (82) 06/27/24 08:15 96 21 100 130/70 (90) 06/27/24 08:15 100 Ventilator+ 30 LABS: Laboratory: Test 06/27/24 11:45 06/27/24 10:47 06/27/24 06:34 06/27/24 04:43 Range/Units Hemoglobin 7.1 L 12.0-16.0 g/dL Whole Blood Glucose 133 H 70-110 MG/DL White Blood Count 6.1 4.8-10.8 K/uL Red Blood Count 2.92 #L 4.00-5.50 MIL/uL Hematocrit 24.6 L 36-48 % Mean Corpuscular Volume 84.2 79-99 fL Mean Corpuscular Hemoglobin 29.1 27.0-33.0 pg Mean Corpuscular Hemoglobin Concent 34.6 32.0-36.0 g/dL Red Cell Distribution Width 15.5 11.0-15.5 % Platelet Count 34 #L 130-400 K/uL Mean Platelet Volume 11.0 H 7.5-10.5 fL Nucleated Red Blood Cells 0.0 0.0-0.19 % Sodium Level 132 L 136-145 mmol/L Potassium Level 3.7 3.5-5.1 mmol/L Chloride Level 98 L 101-111 mmol/L Carbon Dioxide Level 29 21-32 mmol/L Blood Urea Nitrogen 30 H 7-18 mg/dL Creatinine 1.3 H 0.5-1.0 mg/dL Glomerular Filtration Rate Calc 43 >90 mL/min Random Glucose 174 H 70-105 mg/dL Total Calcium 6.8 L 8.5-10.1 mg/dL Magnesium Level 1.80 1.80-2.40 mg/dL Test 06/27/24 04:42 06/27/24 03:32 06/26/24 19:45 Range/Units Lactic Acid Level 2.7 H 0.8-2.5 mmol/L Blood Gas Specimen Type Arterial Arterial Blood pH 7.465 H 7.350-7.450 Arterial Blood Partial Pressure CO2 37 32-45 mmHg Arterial Blood Partial Pressure O2 92.8 83.0-108.0 mmHg Arterial Blood HCO3 26.1 21.0-28.0 mmol/L Arterial Blood Oxygen Saturation 96.9 94.0-98.0 % Arterial Blood Base Excess 2.3 -2.0-3.0 mmol/L Hemoglobin (Blood Gas) 9.1 L 12.0-16.0 g/dL Sodium (Blood Gas) 127 L 136-145 MMOL/L Bedside Potassium (Blood Gas) 3.5 3.4-4.5 MMOL/L Bedside Chloride (Blood Gas) 96 L 98-107 MMOL/L Bedside Glucose (Blood Gas) 158 H 65-95 MG/DL Bedside Ionized Calcium (Blood Gas) 1.00 L 1.15-1.33 MMOL/L Bedside Lactic Acid (Blood Gas) 2.88 H 0.36-0.75 MMOL/L Blood Gas Temperature 37.0 35.5-37.0 CELSIUS Blood Gas Respiration Rate 18.0 min. Blood Gas Vent Mode AC ROOM AIR FiO2 30.0 % Blood Gas Tidal Volume 450 ml Blood Gas PEEP 5 cm H2O Blood Gas Specimen Comment AL,RNJAMES Prothrombin Time 13.5 H 9.6-11.6 SEC Prothromb Time International Ratio 1.31 H 0.85-1.15 Activated Partial Thromboplast Time 67.5 H 26.3-35.5 SEC Fibrinogen 235 180-350 mg/dL Total Bilirubin 0.6 0.2-1.0 mg/dL Aspartate Amino Transf (AST/SGOT) 19 10-37 U/L Alanine Aminotransferase (ALT/SGPT) 19 12-78 U/L Alkaline Phosphatase 107 50-136 U/L Total Protein 3.2 L 6.0-8.3 g/dL Albumin 1.6 L 3.5-5.0 g/dL Current Medications Medications (Trade) Dose Ordered Sig/Dionisio Route PRN Reason Start Time Stop Time Status Last Admin Dose Admin Acetaminophen (TYLenol 325MG TAB) 650 mg Q4H PRN PO TEMPERATURE GREATER THAN 101.5 06/23/24 03:30 07/23/24 03:29 Acetaminophen (TYLenol 650MG SUPPOSITORY) 650 mg Q6H PRN RC MILD PAIN (1-3) 06/22/24 20:30 07/22/24 20:29 Albumin Human 50 ml @ 0 mls/hr AD IV 06/26/24 17:30 06/26/24 17:32 DC Albumin Human 100 ml @ 0 mls/hr Q6H6 IV 06/23/24 00:00 06/23/24 12:52 DC Albumin Human 250 ml @ 400 mls/hr AD IV 06/26/24 17:30 07/06/24 17:29 06/26/24 17:36 400 MLS/HR Albumin Human 250 ml @ 0 mls/hr AD IV 06/23/24 11:30 06/24/24 11:29 DC 06/24/24 13:26 400 MLS/HR Albumin Human 250 ml @ 0 mls/hr AD IV 06/24/24 12:00 06/24/24 13:21 DC Artificial Tears (Artificial Tears) 1 DROP BID OU 06/24/24 21:00 07/24/24 20:59 06/27/24 09:49 1 DROP Calcium Gluconate 1 gm/Sodium Chloride 100 ml @ 0 mls/hr PROTOCOL IV 06/26/24 16:00 07/26/24 15:59 06/26/24 16:57 400 MLS/HR Cefepime HCl (MAXipime 2 gm vial) 2 gm Q12H IVPB 06/22/24 21:00 06/23/24 03:25 DC 06/22/24 22:03 2 GM Cefepime HCl (MAXipime 2 gm vial) 2 gm Q24H IVPB 06/23/24 21:00 06/23/24 21:47 DC 06/23/24 21:15 2 GM Ceftazidime (ForTAZ/TAZidime) 1 gm Q24H IVPB 06/24/24 01:30 07/04/24 01:29 06/27/24 00:56 1 GM Enoxaparin Sodium (Lovenox) 30 mg DAILY SQ 06/23/24 09:00 07/23/24 08:59 06/25/24 07:35 30 MG Fat Emulsion Intravenous 250 ml @ 42 mls/hr DAILY10 IV 06/24/24 10:00 06/24/24 13:22 DC 06/24/24 10:07 42 MLS/HR Fat Emulsion Intravenous 250 ml @ 42 mls/hr MoWeFr IV 06/29/24 20:18 07/29/24 20:17 Cancel Fat Emulsion Intravenous 250 ml @ 42 mls/hr [id number]@1000 IV 06/26/24 10:00 4/4/25 09:59 06/26/24 08:41 42 MLS/HR Fentanyl Citrate 100 ml @ 2.5 mls/hr PROTOCOL IV 06/23/24 09:00 06/26/24 20:27 DC 06/26/24 17:13 2.5 MLS/HR Fentanyl Citrate 2500 mcg/Sodium Chloride 250 ml @ 0 mls/hr AD PRN IV TITRATE 06/26/24 20:30 06/26/24 20:41 DC Fentanyl/Sodium Chloride 250 ml @ 0 mls/hr PROTOCOL IV 06/26/24 21:00 07/01/24 20:59 06/27/24 07:23 21 MLS/HR Fluconazole/ Sodium Chloride (DiFLUCan 200 MG/ NS 100 ML) 200 mg Q24H IVPB 06/23/24 03:30 07/23/24 03:29 06/27/24 03:30 200 MG Furosemide (LASix 20MG VIAL) 20 mg ONCE STAT IV 06/25/24 15:49 06/25/24 15:50 DC 06/25/24 16:11 20 MG Furosemide (LASix 20MG VIAL) 20 mg Q8H IV 06/25/24 17:30 06/27/24 17:29 06/27/24 10:01 20 MG Furosemide 100 mg/ Sodium Chloride 100 ml @ 0 mls/hr PROTOCOL IV 06/23/24 12:00 06/23/24 12:44 DC 06/23/24 11:37 5 MLS/HR Heparin Sodium (Porcine) (HEParin 5,000 UNIT VIAL) 5,000 unit BID SQ 06/22/24 21:00 06/22/24 20:48 DC Hydrocortisone Sodium Succinate (Solu-corTEF 100MG) 25 mg Q12H IV 06/26/24 14:00 07/23/24 08:59 06/27/24 14:35 25 MG Hydrocortisone Sodium Succinate (Solu-corTEF 100MG) 50 mg Q6H6 IV 06/23/24 09:00 06/26/24 13:48 DC 06/26/24 05:33 50 MG Hydromorphone HCl (DiLAUDid 1MG INJ) 1 mg Q3H3 PRN IVP SEVERE PAIN (7-10) 06/23/24 03:30 06/28/24 03:29 Insulin Human Regular (humuLIN R 100 UNIT/ML 3ML) INSULIN SLIDING SCAL... ACHS SQ 06/22/24 21:00 06/24/24 15:37 DC 06/24/24 10:09 6 UNIT Insulin Human Regular (humuLIN R 100 UNIT/ML 3ML) INSULIN SLIDING SCAL... Q6H6 SQ 06/24/24 18:00 06/25/24 06:25 DC 06/24/24 23:32 7 UNIT Insulin Human Regular 100 unit/ Sodium Chloride 100 ml @ 0 mls/hr AD IV 06/25/24 06:30 07/02/24 06:29 06/26/24 07:24 4 MLS/HR Ketorolac Tromethamine (toRADol) 15 mg Q6H PRN IV MODERATE PAIN (4-6) 06/23/24 03:30 06/28/24 03:29 Lactated Ringer's 1,000 ml @ 75 mls/hr [id number] IV 06/26/24 20:30 07/26/24 20:29 06/27/24 10:02 75 MLS/HR Lactated Ringer's 1,000 ml @ 125 mls/hr Q8H IV 06/22/24 20:30 06/23/24 12:44 DC 06/23/24 11:23 125 MLS/HR Lactated Ringer's (Lactated Ringers 1000ml) 500 ml BOLUS IV 06/23/24 05:30 06/24/24 13:22 DC Linezolid 300 ml @ 150 mls/hr Q12H IV 06/23/24 15:00 06/26/24 10:34 DC 06/26/24 03:27 150 MLS/HR Magnesium Sulfate 50 ml @ 0 mls/hr PROTOCOL IV 06/23/24 04:30 07/23/24 04:29 06/27/24 06:31 25 MLS/HR Magnesium Sulfate (Magnesium 4gm Premix 100ml) 4 gm AD IV 06/23/24 05:30 06/23/24 05:59 DC Metoprolol Tartrate (loprESSOR) 5 mg ONCE IV 06/26/24 17:00 06/26/24 21:30 DC 06/26/24 17:28 5 MG Metronidazole/ Sodium Chloride 100 ml @ 100 mls/hr Q8H6 IVPB 06/23/24 14:00 07/03/24 13:59 06/27/24 14:35 100 MLS/HR Midazolam HCl 100 ml @ 0 mls/hr AD PRN IV TITRATE 06/23/24 22:00 07/23/24 21:59 06/26/24 22:58 5 MLS/HR Morphine Sulfate (morPHINE 2MG SYG) 2 mg Q4H PRN IVP SEVERE PAIN (7-10) 06/22/24 20:30 06/23/24 03:21 DC Multivitamins/ Minerals 10 ml/ Amino Acids/ Electrolytes/ Dextrose 2,000 ml @ 83 mls/hr AD IV 06/26/24 20:30 07/26/24 20:29 06/26/24 21:58 83 MLS/HR Norepinephrine 250 ml @ 0 mls/hr PROTOCOL IV 06/22/24 19:30 06/23/24 03:51 DC 06/22/24 20:15 45 MLS/HR Norepinephrine Bitartrate 32 mg/ Sodium Chloride 250 ml @ 0 mls/hr Q0M STAT IV 06/23/24 03:47 06/23/24 03:52 DC 06/23/24 07:22 32.8 MLS/HR Ondansetron HCl (zoFRAN 4MG INJ) 4 mg Q6H PRN IV NAUSEA/VOMITING 06/22/24 20:30 07/22/24 20:29 Ondansetron HCl (zoFRAN 4MG INJ) 4 mg Q6H PRN IVP NAUSEA/VOMITING 06/23/24 03:30 06/23/24 03:18 DC Pantoprazole Sodium (PROTonix 40MG INJ) 40 mg BID IVP 06/23/24 09:00 07/23/24 08:59 06/27/24 10:01 40 MG Pantoprazole Sodium (PROTonix 40MG INJ) 40 mg DAILY IV 06/23/24 09:00 06/23/24 03:19 DC Pharmacy Profile Note (Lace Assessment) 1 each AD MISC 06/24/24 14:00 06/24/24 13:53 DC Pharmacy Profile Note (Pharmacy Communication) 1 each ONCE MISC 06/23/24 14:00 06/23/24 13:46 DC Pharmacy Profile Note (Pharmacy Communication) 1 each ONCE STAT MISC 06/25/24 17:11 06/26/24 15:42 DC Phenylephrine HCl 100 mg/Sodium Chloride 250 ml @ 0 mls/hr PROTOCOL IV 06/23/24 08:30 07/23/24 08:29 06/23/24 13:00 32.67 MLS/HR Piperacillin Sod/ Tazobactam Sod (Zosyn 3.375gm+NS 50ml) 3.375 gm Q8H IVPB 06/23/24 03:30 06/23/24 04:34 DC Potassium Chloride 100 ml @ 50 mls/hr AD PRN IV POTASSIUM PROTOCOL 06/23/24 05:30 07/23/24 05:29 06/27/24 06:32 50 MLS/HR Propofol (DIPRivan 1000MG/ 100ML) 1,000 mg PROTOCOL PRN IV SEDATION 06/23/24 03:30 07/23/24 03:29 06/23/24 04:06 1,000 MG Sodium Bicarbonate 150 meq/Dextrose 1,150 ml @ 50 mls/hr Q23H IV 06/26/24 23:00 06/26/24 22:55 DC Sodium Bicarbonate 150 meq/Dextrose 1,150 ml @ 50 mls/hr Q23H IVP 06/23/24 13:00 06/25/24 17:25 DC 06/24/24 19:34 50 MLS/HR Sodium Bicarbonate 150 meq/Dextrose 1,150 ml @ 50 mls/hr Q23H IVP 06/26/24 23:00 07/26/24 22:59 06/27/24 00:56 50 MLS/HR Sodium Bicarbonate 150 meq/Sodium Chloride 1,150 ml @ 50 mls/hr Q23H IVP 06/25/24 17:30 06/25/24 17:52 DC 06/25/24 17:42 50 MLS/HR Sodium Bicarbonate 150 meq/Sterile Water 1,150 ml @ 50 mls/hr Q23H IVP 06/25/24 18:00 06/26/24 14:36 DC 06/25/24 18:18 50 MLS/HR Sodium Chloride 1,000 ml @ 0 mls/hr Q0M IV 06/23/24 12:00 07/23/24 11:59 06/23/24 15:43 1,000 MLS/HR Sodium Chloride (NS 50ml) 50 ml AD IV 06/23/24 03:30 06/23/24 03:26 DC Vasopressin 20 units/Sodium Chloride 100 ml @ 0 mls/hr PROTOCOL IV 06/22/24 20:30 07/22/24 20:29 06/24/24 08:43 6 MLS/HR DIAGNOSTICS / RADIOLOGY: [ ] ASSESSMENT: Septic shock, POA Acute hypoxic Respiratory failure POA Acute encephalopathy, in the setting of severe sepsis POA Acute bowel perforation, with subsequent peritonitis s/p exploratory laparotomy 06/23/2024 Dr. Valenzuela POA Urinary tract infection, POA, E coli Acute kidney injury, POA Lactic acidosis, POA, improving Chronic debility, POA DM type 2, POA GERD, POA History small-bowel obstruction History of fibromyalgia Hypertension, now hypotensive in the setting of septic shock Sacral ulcer, POA PLAN: Suspected septic shock, POA Continue IV antibiotic ceftazidime , metronidazole, linezolid q.12h, fluconazole as per ID recommendations Continue IV fluids Acute hypoxic Respiratory failure POA Intubated [PEEP 5, TV 450]and sedated [ on fentanyl and midazolam] Continue ICU care Complete bedrest and Intubation watch Monitor O2 levels and keep saturation above 92% Continue hydrocortisone 50 mg q.6 H Sputum Culture resulted in E coli Acute bowel perforation, with subsequent peritonitis Underwent exploratory laparotomy on 06/23/2024 by The abdominal wound was left open, covered with foam and a surgical drape. A den ck foam dressing was applied on top and secured with a wound VAC by the wound care today Scheduled for wound closure today by surgery consult. Acute encephalopathy, in the setting of severe sepsis POA Continue IV fluids and antibiotics Monitor lactic acid, electrolyte levels Replace electrolytes as per the protocol, if needed Urinary tract infection, POA, Gram-negative rods Urine culture resulted in E coli Continue IV antibiotics as per ID recommendation Acute kidney injury, POA BUN 26, creatinine 1.5 Continue IV fluids I&Os Daily weights Avoid NSAIDS, Nephrotoxic drugs and contrast Adjust the medication dose to renal dosing DM type 2, POA, GERD, POA Continue Insulin sliding scale Continue Protonix IV Glucometer checks Hypotension, in view of septic shock Blood pressure is ranging in 110s/60s Sacral ulcer, POA Follow up on wound care consult recommendations Patient is currently on a bicarb drip at the rate 50 mL/hour Q 23H in view of lactic acidosis by critical care consult LEI LEPE MD Jun 27, 2024 16:01
--- NOTE | 2024-06-27 17:25 | PN ---
[facility] PROGRESS NOTE Date Patient Seen: Jun 27, 2024 Time of Visit: 17:22 Supervising Physician: Dr. Castillo Consulting Physician: [facility] Outpatient Specialists: [ ] Inpatient Consults: [ ] PROBLEM LIST: Acute hypoxic Respiratory failure POA Acute encephalopathy, in the setting of severe sepsis POA Acute bowel perforation with subsequent peritonitis s/p exploratory laparotomy 06/23/24 Dr. Valenzuela POA Culture + E-coli Shock etiology sepsis POA Suspected intraabdominal hemorrhage Urinary tract infection, POA E-coli multisensitive Pneumonitis, culture + for E-coli Acute kidney injury, POA Lactic acidosis, POA Chronic debility, POA DM type 2, POA GERD, POA History small-bowel obstruction History of fibromyalgia History of hypertension, now hypotensive in the setting of septic shock versus hemorrhagic shock INTERVAL HISTORY: 06/24/2023: At the time of my evaluation the patient was lying in bed. She was recently on exploratory laparotomy by Dr. Valenzuela and is critically ill appearing. The patient remains sedated on Diprivan, RASS score of -4. intubated and on mechanical ventilator support for respiratory management. Patient is currently on ACVC mode with FiO2 40%, total volume of 450, peep of 5 and rate of 14 Initially, on the monitor was unable to obtain a blood pressure reading. The patient was tachycardic in the 160. Chemistry panel showed a sodium of 140, potassium of 3.9, chloride 107, CO2 of 13, BUN 22, creatinine of 1.9, blood glucose of 52, Mag one 0.50 a lactic acid of 8.6. Patient has a cumulative balance of positive 269. CBC showed a WBC of 37.4, H&H 10.1/29.6 and a platelet count of 575. Patient currently on cefepime and fluconazole for antibiotic coverage. No other complaint. 06/24/2024: At the time of my evaluation, the patient was lying in bed. She remains sedated with Versed and fentanyl, RASS scale of -5. The patient remains intubated and mechanically vented. On labs, WBC count improved from 31.5-26.7, H&H 11.2/32.4 and a platelet count of 312. Chemistry panel was notable for a BUN of 25, creatinine of 2.0 and a GFR of 26. Lactic acid is improving, today 7.0 and magnesium count of 1.80. Microbiology data showed positive E coli in urine multi sensitive. Anaerobic culture of peritoneal fluid showing no anaerobes and respiratory culture Gram stain showing Gram-negative rods. Patient is currently on antibiotic therapy with ceftazidime, linezolid and fluconazole. No other complaint. 06/25/2024: At the time of my evaluation, the patient is lying in bed. She remains sedated on mechanically vented. ABG this a.m. showed a pH of 7.436, pCO2 41, PO2 91.0, HC03 26.9, SpO2 96.4 and a base excess of 2.5 On the monitor, the patient is hemodynamically stable. Laboratory data today was notable for a significantly improved WBC count down to 11.2 from 09/10 0.7 yesterday. H&H and platelet count remains stable. Chemistry panel was notable for a BUN of 26, creatinine of 1.5 and a GFR of 37. Blood glucose this a.m. was in the 400s. This may be secondary to the dextrose diluent for the bicarb drip. The TPN for nutritional support may also be a contributing factor to the hyperglycemia. The patient remains on broad-spectrum antibiotic coverage with ceftazidime, linezolid , fluconazole and Flagyl. Lactic acid level has significantly improved, today 3.5. Chest x-ray today showed vascular congestion and bibasilar atelectasis. No other complaint. 06/26/2024: At the time of my evaluation, the patient was lying in bed. She remains on fentanyl/Versed sedation, RASS score -5. She remains endotracheally intubated and on a mechanical ventilator support. On the monitor, the patient is hemodynamically stable on Ajay-Synephrine drip on labs today, there was notation of a improved WBC count 6.9 today, H&H 9.3/26.0 and a platelet count of 70 which necessitates a drop from 130 yesterday. On chemistry, findings were significant for low sodium of 134 and a severely low potassium of 2.9 with a ch loride of 98. Renal parameters showed improving creatinine with a BUN of 28, creatinine of 1.4 and a GFR of 40. Total calcium of 6.8. Microbiology data showing E coli growth in urine, peritoneal fluid and sputum. There was also bacteroides uniformis growth in the peritoneal fluid. The patient continues on antibiotic coverage with ceftazidime, fluconazole, metronidazole and linezolid. Per the staff nurse, the plan is for surgical intervention today by Dr. Oswald. No other complaint. 06/27/2024: At the time of my evaluation, the patient was lying in bed. She remains on fentanyl/Versed sedation, RASS score -5. She remains endotracheally intubated and on a mechanical ventilator support. ABG this a.m. showed a pH of 7.46, pCO2 37, PO2 of 92.8, HC03 of 26.1 and a base excess of 2.3. On the monitor, the patient is tachycardic in the 120s and blood pressure stable systolic in the 120s currently off pressor therapy. Laboratory data today was notable for again downward trend of H&H with a hemoglobin of 7.1. Chemistry panel showed improving renal parameters. Total calcium of 6.8 when corrected for albumin is within normal range and a Mag of 1.80. Chest x-ray obtained today showed persisting pulmonary vascular congestion and bilateral infiltrates. The patient is on sodium bicarb at 50 mL/hour and is on LR at 75 cc/hour. She also remains on TPN for nutritional support. She continues on antibiotic therapy by the Infectious Disease specialist currently recommending ceftazidime, fluconazole and metronidazole. No other complaint. REVIEW OF SYSTEMS: Unable to obtain due to alteration in mental status PHYSICAL EXAM: GENERAL: Encephalopathic, looks pale HEENT: EOMI, Sclera non icteric, moist mucosa NECK: Supple, no JVD, trachea midline LUNGS: Diminished bibasilar air. No wheezes HEART: Sinus tach on the monitor. Normal S1 and S2, without murmurs ABD: Abdomen is distended and tender to palpate. Bowel sounds present EXT: No clubbing cyanosis or edema NEURO: Encephalopathic Vital Signs (last 8hr) Date Time Temp Pulse Resp B/P (MAP) Pulse Ox O2 Delivery O2 Flow Rate FiO2 06/27/24 16:00 98.6 06/27/24 16:00 100 Ventilator+ 30 06/27/24 15:08 128 30 06/27/24 15:00 30 06/27/24 12:15 100 Ventilator+ 30 06/27/24 12:00 120 27 100 125/77 (93) 06/27/24 12:00 98.2 06/27/24 11:45 116 42 139/85 (103) 100 129/78 (95) 06/27/24 11:45 111 30 06/27/24 11:30 112 28 100 125/75 (92) 06/27/24 11:00 108 25 100 129/73 (91) 06/27/24 10:45 105 16 134/77 (96) 100 120/69 (86) 06/27/24 10:32 101 30 06/27/24 10:30 101 23 100 128/70 (89) 06/27/24 10:00 30 06/27/24 10:00 102 17 100 127/71 (89) 06/27/24 09:45 100 21 141/78 (99) 100 131/72 (91) 06/27/24 09:30 99 20 100 120/66 (84) LABS: Hematology Labs: Test 06/27/24 11:45 06/27/24 06:34 Range/Units Hemoglobin 7.1 L 12.0-16.0 g/dL White Blood Count 6.1 4.8-10.8 K/uL Red Blood Count 2.92 #L 4.00-5.50 MIL/uL Hematocrit 24.6 L 36-48 % Mean Corpuscular Volume 84.2 79-99 fL Mean Corpuscular Hemoglobin 29.1 27.0-33.0 pg Mean Corpuscular Hemoglobin Concent 34.6 32.0-36.0 g/dL Red Cell Distribution Width 15.5 11.0-15.5 % Platelet Count 34 #L 130-400 K/uL Mean Platelet Volume 11.0 H 7.5-10.5 fL Nucleated Red Blood Cells 0.0 0.0-0.19 % Chemistry Labs: Test 06/27/24 10:47 06/27/24 04:43 06/27/24 04:42 06/26/24 19:45 Range/Units Whole Blood Glucose 133 H 70-110 MG/DL Sodium Level 132 L 136-145 mmol/L Potassium Level 3.7 3.5-5.1 mmol/L Chloride Level 98 L 101-111 mmol/L Carbon Dioxide Level 29 21-32 mmol/L Blood Urea Nitrogen 30 H 7-18 mg/dL Creatinine 1.3 H 0.5-1.0 mg/dL Glomerular Filtration Rate Calc 43 >90 mL/min Random Glucose 174 H 70-105 mg/dL Total Calcium 6.8 L 8.5-10.1 mg/dL Magnesium Level 1.80 1.80-2.40 mg/dL Lactic Acid Level 2.7 H 0.8-2.5 mmol/L Total Bilirubin 0.6 0.2-1.0 mg/dL Aspartate Amino Transf (AST/SGOT) 19 10-37 U/L Alanine Aminotransferase (ALT/SGPT) 19 12-78 U/L Alkaline Phosphatase 107 50-136 U/L Total Protein 3.2 L 6.0-8.3 g/dL Albumin 1.6 L 3.5-5.0 g/dL Coagulation Labs: Test 06/26/24 19:45 Range/Units Prothrombin Time 13.5 H 9.6-11.6 SEC Prothromb Time International Ratio 1.31 H 0.85-1.15 Activated Partial Thromboplast Time 67.5 H 26.3-35.5 SEC Fibrinogen 235 180-350 mg/dL DIAGNOSTICS / RADIOLOGY RESULTS: [ ] PLAN 06/24/2023: I am going to attempts arterial for better hemodynamic monitoring, if unsuccessful we will request the assistance of anesthesia who attempted the A-line the OR this a.m. but was unsuccessful. Will order IV fluid bolus with IV LR, we will order bicarb pushes X 6 amps. then drip at 125 mL per hour, we will start the patient on hydrocortisone 50 mg IV q.6 hours we will adjust antibiotic therapy with ceftazidime, Zyvox, fluconazole. We will replace magnesium deficit. We will continue to monitor the lactic acid trend. We will any nephrotoxic agents. We will repeat labs, chest x-ray and ABG in the a.m. and once her condition is stabilized we will attempt to wean off the vent. We will monitor the patient's progress and response to management. We will continue to provide general supportive care, GI and DVT prophylaxis. Further orders per attending MD and hospital course. 06/24/2024: For now, going to continue current management for the patient. She will remain sedated and mechanically vented. We are going to continue with bicarb drip, we will decrease the rate to 50 cc/hour in efforts of avoiding fluid volume overload. The patient will continue on antibiotic course with ceftazidime, linezolid and fluconazole. We will follow the recommendation of the Infectious Disease specialist. For nutrition support, the patient remains on TPN and we will run at 83 cc/hour this with added lipids Q other day. Per the general surgeon, the plan is for repeat surgical intervention this coming for abdominal wound closure and removal of the wound VAC. We will monitor the patient's progress and response to management. We will repeat surveillance labs in the morning. We will continue to provide general supportive care, GI and DVT prophylaxis. Further orders per attending MD and hospital course. 06/25/2024: For now, going to continue current management for patient. We will continue sedation and mechanical ventilator support. We will monitor the respiratory status. The patient will continue on nutritional support with TPN. Because of the hyperglycemia, I am going to change the bicarb diluent to sterile water. We will monitor the blood glucose trend and treat accordingly. The patient will remain on broad-spectrum antibiotic therapy and we will follow the input of the Infectious Disease specialist. Per the staff nurse, the plan is for surgical intervention today with Dr. Oswald. We will repeat surveillance labs in the morning. We will monitor the patient's progress and response to management. We will continue to provide general supportive care, GI and DVT prophylaxis. Further orders per attending MD and hospital course. 06/26/2024: For now, going to continue current management for the patient. She will continue on mechanical ventilator support, while awaiting surgical intervention. The patient will remain on sedation as well as pressor therapy. Because of the antibiogram , the patient will continue on antibiotic regimen guided by the Infectious Disease specialist. The linezolid will likely need to be discontinued due to the low platelet count. We will replace electrolyte deficit per the protocol as necessary and follow the trend. Currently the patient is on TPN for nutritional supplementation. We will follow the recommendation of the treating specialist. We will continue to monitor the renal parameters. We will continue to provide general supportive care, GI and DVT prophylaxis. Further orders per attending MD and hospital course. 06/27/2024: For now, going to continue current management for the patient. She will continue on mechanical ventilator support. The patient will remain on sedation and we will continue to monitor off pressor therapy. The patient will continue on antibiotic regimen guided by the Infectious Disease specialist. She underwent repeat exploratory laparotomy on 06/26/2024 with small bowel anastomosis, right colon and transverse colon resection, colostomy creation, ileostomy tube placement and wound VAC placement. The patient has noticeable amount of blood in the wound VAC canister, the colostomy reservoir and orally. For this, I am going to order a coagulation panel and a hit panel. Patient might require tranexamic acid and DDAVP to eight in coagulation. We will replace electrolyte deficit per the protocol as necessary and follow the trend. I am going to stop the bicarb drip and we will continue on the IV LR. Currently the patient is on TPN for nutritional supplementation. We will follow the recommendation of the treating specialist. We will continue to monitor the renal parameters. We will continue to provide general supportive care, GI and DVT prophylaxis. Further orders per attending MD and hospital course. 1830: At approximately 1700, I was called back to the bedside due to patient bleeding from the colostomy site as well as blood in the wound VAC canister. Patient recently completed transfusion of PRBCs x2 units and hemoglobin came up to 10.5. Also, patient had a low platelet count for which I will request transfusion of platelets x4 units. We will order a dose of tranexamic acid, DDAVP and aminocaproic acid. We will continue monitoring the H and H q.4 hours. The case was discussed with attending MD Dr. Castillo and the surgeon was also notified regarding the acute change in condition. We will continue to monitor her response to management. I personally spent approximately 60 minutes of added critical care time to the previously spent during rounds in treatment of this patient, for a total of approximately 100 minutes. This includes time at bedside, time reviewing tests, labs, appropriate images and studies, documentation, and patient care coordination. This time excludes separately billable procedures. NEURO: Minimize central acting medications as possible. Fall Precautions. Well lighted room through the day and minimize interruptions through the night to prevent acute delirium. PULMONARY: Supplemental 02 as needed Titrate Fio2 to keep Spo2 > or = 90% DuoNebs and CPT as needed IS hourly while awake for pulmonary hygiene CARDIOVASCULAR: Follow hemodynamics. Titrate vasopressor to keep MAP >65 or systolic blood pressure >95mmHg DIPS: Ajay Versed and fentanyl LINES: Right upper arm PICC line Right groin A-line GI & NUTRITION: NPO Aspirations precautions Prokinetic agents and laxatives as needed KIDNEYS & ELECTROLYTES: Strict monitoring of intake and output Daily weights Avoid nephrotoxic agents Monitor electrolytes and replace as needed Goal urine output of 30mL/hr or 0.5mL/kg/hr ENDOCRINE: Maintain blood glucose between 100-180 at all times. Insulin sliding scale for blood glucose management INFECTIOUS DISEASE: Trend temperature. Clarke-culture if febrile. Micro: [ ] Antibiotics: Cefepime HEMATOLOGY & COAGULATION: Monitor H&H. Keep Hgb > 7 Transfuse 1 unit of PRBC for Hgb < 7 Transfuse 1 pack of platelets of platelets < 20, 000 Watch for any signs and symptoms of bleeding SKIN: Pressure ulcer prevention per facility protocol Rehab: PT/OT Prophylaxis: GI: PPI drip DVT: Bilateral SCDs Code Status: Full Resuscitation Disposition: ICU Other: I personally spent 40 minutes of critical care time in treatment of this patient. This includes patient management, time at bedside, time reviewing tests, labs, appropriate images and studies, documentation, and patient care coordination. This time excludes separately billable procedures. JOSE SPENCER NP Jun 27, 2024 17:25
[2024-06-27 17:36] LABS: INR 1.28 (0.85-1.15); PROTHROMBIN TIME 13.2 SEC (9.6-11.6)
[2024-06-27 17:37] LABS: PARTIAL THROMBOPLASTIN TIME 47.9 SEC (26.3-35.5)
[2024-06-27] MEDS ORDERED: TRANEXAMIC ACID 1000MG/10ML IV ONE (18:00)
[2024-06-27] MEDS: TRANEXAMIC ACID 1,000 MG in 0.9%NACL 100ML 100 ML IV ONE (18:08)
[2024-06-27] MEDS ORDERED: aminoCAProic ACID 5,000MG VIAL IV ONE (18:30)
[2024-06-27] MEDS ORDERED: PHARMACY COMMUNICATION MISC SCH (19:00)
[2024-06-27] MEDS: AMINOCAPROIC ACID IV ONE (19:54)
[2024-06-27] MEDS: NACL 0.9% IV ONE (19:54)
[2024-06-27] MEDS: CALCIUM GLUC 1GM/10ML VIAL IV ONE (20:00)
[2024-06-27 20:59] LABS: ALBUMIN 1.4 g/dL (3.5-5.0); BILIRUBIN,TOTAL 0.7 mg/dL (0.2-1.0); CREATININE 1.3 mg/dL (0.5-1.0); TOTAL PROTEIN, SERUM 3.3 g/dL (6.0-8.3)
[2024-06-27 23:26] LABS: HEMATOCRIT 23.7 % (36-48)
[2024-06-27] MEDS: M.V.I. IV [ADULT] 10 ML in CLINIMIX-E 5%AA /D15%W 2000ML 2,000 ML IV ONE (23:59)
[2024-06-28] VITALS (90 sets, daily range): BP systolic 100–176; BP diastolic 57–101; PULSE 77–111; RESP 10–57; TEMP 98.8–99.5; O2SAT 97–100
[2024-06-28] MEDS: CALCIUM GLUC 1GM 2 GM in 0.9%NACL 100ML 100 ML IV PRN (01:06)
[2024-06-28 03:31] LABS: BASOPHILS # (AUTO) 0.03 K/uL (0.00-0.20); BASOPHILS % (AUTO) 0.5 % (0.0-5.0); EOSINOPHILS # (AUTO) 0.03 K/uL (0.00-0.70); EOSINOPHILS % (AUTO) 0.5 % (0.0-8.0); HEMATOCRIT 22.2 % (36-48); IMMATURE GRANULOCYTE ABSOLUTE 0.27 K/uL (0-1); LYMPHOCYTES # (AUTO) 0.9 K/uL (1.0-4.8); LYMPHOCYTES % (AUTO) 13.3 % (21.0-51.0); MEAN CORPUSCULAR HGB CONC 35.1 g/dL (32.0-36.0); MEAN CORPUSCULAR VOLUME 82.5 fL (79-99); MONOCYTES # (AUTO) 0.2 K/uL (0.1-1.0); MONOCYTES % (AUTO) 2.5 % (3.0-13.0); NEUTROPHILS # (AUTO) 5.1 K/uL (1.8-7.7); NUCLEATED RED BLOOD CELLS 0.8 % (0.0-0.19); PLATELET COUNT (AUTO) 48 K/uL (130-400); RED BLOOD CELL COUNT(AUTO) 2.69 MIL/uL (4.00-5.50); RED CELL DISTRIBUTION WIDTH 15.3 % (11.0-15.5); WHITE BLOOD COUNT (AUTO) 6.4 K/uL (4.8-10.8)
[2024-06-28 03:42] LABS: ALBUMIN 1.2 g/dL (3.5-5.0); BILIRUBIN,TOTAL 0.6 mg/dL (0.2-1.0); CREATININE 1.3 mg/dL (0.5-1.0); POTASSIUM 4.1 mmol/L (3.5-5.1); TOTAL PROTEIN, SERUM 3.2 g/dL (6.0-8.3)
[2024-06-28 07:37] LABS: HEMATOCRIT 21.4 % (36-48)
[2024-06-28 07:44] LABS: ABG BASE EXCESS 3.1 mmol/L (-2.0-3.0); ABG HCO3 25.7 mmol/L (21.0-28.0); ABG OXYGEN SATURATION 95.5 % (94.0-98.0); ABG PCO2 33 mmHg (32-45); ABG PH 7.506 (7.350-7.450); VENT MODE, BG AC (ROOM AIR)
--- NOTE | 2024-06-28 08:36 | HMCIMG ---
INDICATION: Endotracheal intubation TECHNIQUE: CHEST 1VW COMPARISON: 06/27/2024 FINDINGS AND IMPRESSION: Continued bilateral airspace consolidations Tubes and lines are seen place. Cardiac silhouette is within normal limits. Mild degenerative changes of the spine. The visualized upper abdomen appears unremarkable.
--- NOTE | 2024-06-28 09:41 | PN ---
[facility] PROGRESS NOTE Date Patient Seen: Jun 28, 2024 Time of Visit: 09:41 Supervising Physician: Dr. Castillo Consulting Physician: [facility] Specialists: [ ] Inpatient Consults: [ ] PROBLEM LIST: Acute hypoxic Respiratory failure POA Acute encephalopathy, in the setting of severe sepsis POA Acute bowel perforation with subsequent peritonitis s/p exploratory laparotomy 06/23/24 Dr. Valenzuela POA Culture + E-coli Shock etiology sepsis POA Suspected intraabdominal hemorrhage Urinary tract infection, POA E-coli multisensitive Pneumonitis, culture + for E-coli Acute kidney injury, POA Lactic acidosis, POA Chronic debility, POA DM type 2, POA GERD, POA History small-bowel obstruction History of fibromyalgia History of hypertension, now hypotensive in the setting of septic shock versus hemorrhagic shock INTERVAL HISTORY: 06/24/2023: At the time of my evaluation the patient was lying in bed. She was recently on exploratory laparotomy by Dr. Valenzuela and is critically ill appearing. The patient remains sedated on Diprivan, RASS score of -4. intubated and on mechanical ventilator support for respiratory management. Patient is currently on ACVC mode with FiO2 40%, total volume of 450, peep of 5 and rate of 14 Initially, on the monitor was unable to obtain a blood pressure reading. The patient was tachycardic in the 160. Chemistry panel showed a sodium of 140, potassium of 3.9, chloride 107, CO2 of 13, BUN 22, creatinine of 1.9, blood glucose of 52, Mag one 0.50 a lactic acid of 8.6. Patient has a cumulative balance of positive 269. CBC showed a WBC of 37.4, H&H 10.1/29.6 and a platelet count of 575. Patient currently on cefepime and fluconazole for antibiotic coverage. No other complaint. 06/24/2024: At the time of my evaluation, the patient was lying in bed. She remains sedated with Versed and fentanyl, RASS scale of -5. The patient remains intubated and mechanically vented. On labs, WBC count improved from 31.5-26.7, H&H 11.2/32.4 and a platelet count of 312. Chemistry panel was notable for a BUN of 25, creatinine of 2.0 and a GFR of 26. Lactic acid is improving, today 7.0 and magnesium count of 1.80. Microbiology data showed positive E coli in urine multi sensitive. Anaerobic culture of peritoneal fluid showing no anaerobes and respiratory culture Gram stain showing Gram-negative rods. Patient is currently on antibiotic therapy with ceftazidime, linezolid and fluconazole. No other complaint. 06/25/2024: At the time of my evaluation, the patient is lying in bed. She remains sedated on mechanically vented. ABG this a.m. showed a pH of 7.436, pCO2 41, PO2 91.0, HC03 26.9, SpO2 96.4 and a base excess of 2.5 On the monitor, the patient is hemodynamically stable. Laboratory data today was notable for a significantly improved WBC count down to 11.2 from 09/10 0.7 yesterday. H&H and platelet count remains stable. Chemistry panel was notable for a BUN of 26, creatinine of 1.5 and a GFR of 37. Blood glucose this a.m. was in the 400s. This may be secondary to the dextrose diluent for the bicarb drip. The TPN for nutritional support may also be a contributing factor to the hyperglycemia. The patient remains on broad-spectrum antibiotic coverage with ceftazidime, linezolid , fluconazole and Flagyl. Lactic acid level has significantly improved, today 3.5. Chest x-ray today showed vascular congestion and bibasilar atelectasis. No other complaint. 06/26/2024: At the time of my evaluation, the patient was lying in bed. She remains on fentanyl/Versed sedation, RASS score -5. She remains endotracheally intubated and on a mechanical ventilator support. On the monitor, the patient is hemodynamically stable on Ajay-Synephrine drip on labs today, there was notation of a improved WBC count 6.9 today, H&H 9.3/26.0 and a platelet count of 70 which necessitates a drop from 130 yesterday. On chemistry, findings were significant for low sodium of 134 and a severely low potassium of 2.9 with a ch loride of 98. Renal parameters showed improving creatinine with a BUN of 28, creatinine of 1.4 and a GFR of 40. Total calcium of 6.8. Microbiology data showing E coli growth in urine, peritoneal fluid and sputum. There was also bacteroides uniformis growth in the peritoneal fluid. The patient continues on antibiotic coverage with ceftazidime, fluconazole, metronidazole and linezolid. Per the staff nurse, the plan is for surgical intervention today by Dr. Oswald. No other complaint. 06/27/2024: At the time of my evaluation, the patient was lying in bed. She remains on fentanyl/Versed sedation, RASS score -5. She remains endotracheally intubated and on a mechanical ventilator support. ABG this a.m. showed a pH of 7.46, pCO2 37, PO2 of 92.8, HC03 of 26.1 and a base excess of 2.3. On the monitor, the patient is tachycardic in the 120s and blood pressure stable systolic in the 120s currently off pressor therapy. Laboratory data today was notable for again downward trend of H&H with a hemoglobin of 7.1. Chemistry panel showed improving renal parameters. Total calcium of 6.8 when corrected for albumin is within normal range and a Mag of 1.80. Chest x-ray obtained today showed persisting pulmonary vascular congestion and bilateral infiltrates. The patient is on sodium bicarb at 50 mL/hour and is on LR at 75 cc/hour. She also remains on TPN for nutritional support. She continues on antibiotic therapy by the Infectious Disease specialist currently recommending ceftazidime, fluconazole and metronidazole. No other complaint. 06/28/2024: At the time of my evaluation, the patient was lying in bed. She remains on fentanyl/Versed sedation, RASS score -5. She remains endotracheally intubated and on a mechanical ventilator support. On the monitor, the patient is hemodynamically stable. Late afternoon yesterday, there was concern for bleeding through the oral route, two with a colostomy and into the wound VAC canister. H&H was trending down as well as platelet count for this, the patient has received multiple doses of PRBCs, plasmapheresis and also Amicar, TXA and DDAVP was infused. Today, there was slight improvement on hematology p arameters. Chemistry panel was notable for a sodium of 130, potassium 4.1, chloride is 96, BUN is 37, creatinine of 1.3, calcium of 7.4, patient did receive calcium gluconate post PRBC transfusion. Imaging of the chest shows persisting is paced consolidation. No other complaint. REVIEW OF SYSTEMS: Unable to obtain due to alteration in mental status PHYSICAL EXAM: GENERAL: Sedated and intubated. HEENT: EOMI, Sclera non icteric, moist mucosa NECK: Supple, no JVD, trachea midline LUNGS: Diminished bibasilar air. No wheezes HEART: Sinus tach on the monitor. Normal S1 and S2, without murmurs ABD: Abdomen is distended and tender to palpate. Bowel sounds present EXT: No clubbing cyanosis or edema NEURO: Sedated. Vital Signs (last 8hr) Date Time Temp Pulse Resp B/P (MAP) Pulse Ox O2 Delivery O2 Flow Rate FiO2 06/28/24 09:06 99.5 06/28/24 07:30 99 30 06/28/24 07:00 30 06/28/24 06:00 106 30 100 122/67 (85) 06/28/24 05:58 106 28 146/83 (104) 99 126/70 (88) 06/28/24 05:46 110 17 176/98 (124) 98 152/80 (104) 06/28/24 05:45 107 31 99 153/83 (106) 06/28/24 05:30 102 33 100 113/63 (80) 06/28/24 05:15 102 57 100 117/65 (82) 06/28/24 05:00 102 26 100 113/63 (80) 06/28/24 04:45 99.1 103 16 122/78 (93) 99 117/65 (82) 06/28/24 04:30 102 22 100 111/62 (78) 06/28/24 04:15 103 37 100 111/63 (79) 06/28/24 04:00 101 22 100 112/63 (79) 06/28/24 03:45 102 26 135/71 (92) 100 114/64 (81) 06/28/24 03:41 100 Ventilator+ 30 06/28/24 03:39 30 06/28/24 03:30 102 21 98 121/66 (84) 06/28/24 03:15 102 14 100 111/63 (79) 06/28/24 03:00 104 20 100 127/71 (89) 06/28/24 02:23 103 30 06/28/24 01:45 101 23 128/76 (93) 99 124/68 (86) LABS: Hematology Labs: Test 06/28/24 07:24 06/28/24 03:18 Range/Units Hemoglobin 7.4 L 12.0-16.0 g/dL Hematocrit 21.4 L 36-48 % White Blood Count 6.4 4.8-10.8 K/uL Red Blood Count 2.69 L 4.00-5.50 MIL/uL Mean Corpuscular Volume 82.5 79-99 fL Mean Corpuscular Hemoglobin 29.0 27.0-33.0 pg Mean Corpuscular Hemoglobin Concent 35.1 32.0-36.0 g/dL Red Cell Distribution Width 15.3 11.0-15.5 % Platelet Count 48 L 130-400 K/uL Mean Platelet Volume 10.1 7.5-10.5 fL Immature Granulocyte % (Auto) 4.2 H 0-1 % Neutrophils (%) (Auto) 79.0 H 40.0-77.0 % Lymphocytes (%) (Auto) 13.3 L 21.0-51.0 % Monocytes (%) (Auto) 2.5 L 3.0-13.0 % Eosinophils (%) (Auto) 0.5 0.0-8.0 % Basophils (%) (Auto) 0.5 0.0-5.0 % Neutrophils # (Auto) 5.1 1.8-7.7 K/uL Lymphocytes # (Auto) 0.9 L 1.0-4.8 K/uL Monocytes # (Auto) 0.2 0.1-1.0 K/uL Eosinophils # (Auto) 0.03 0.00-0.70 K/uL Basophils # (Auto) 0.03 0.00-0.20 K/uL Absolute Immature Granulocyte (auto 0.27 0-1 K/uL Nucleated Red Blood Cells 0.8 H 0.0-0.19 % Chemistry Labs: Test 06/28/24 06:35 06/28/24 03:18 06/27/24 20:15 06/27/24 04:42 Range/Units Whole Blood Glucose 111 H 70-110 MG/DL Sodium Level 130 L 136-145 mmol/L Potassium Level 4.1 3.5-5.1 mmol/L Chloride Level 96 L 101-111 mmol/L Carbon Dioxide Level 32 21-32 mmol/L Blood Urea Nitrogen 37 H 7-18 mg/dL Creatinine 1.3 H 0.5-1.0 mg/dL Glomerular Filtration Rate Calc 43 >90 mL/min Random Glucose 122 H 70-105 mg/dL Total Calcium 7.4 L 8.5-10.1 mg/dL Total Bilirubin 0.6 0.2-1.0 mg/dL Aspartate Amino Transf (AST/SGOT) 13 10-37 U/L Alanine Aminotransferase (ALT/SGPT) 14 12-78 U/L Alkaline Phosphatase 150 #H 50-136 U/L Total Protein 3.2 L 6.0-8.3 g/dL Albumin 1.2 L 3.5-5.0 g/dL Magnesium Level 2.00 1.80-2.40 mg/dL Lactic Acid Level 2.7 H 0.8-2.5 mmol/L Coagulation Labs: Test 06/27/24 17:15 Range/Units Prothrombin Time 13.2 H 9.6-11.6 SEC Prothromb Time International Ratio 1.28 H 0.85-1.15 Activated Partial Thromboplast Time 47.9 #H 26.3-35.5 SEC Fibrinogen 301 180-350 mg/dL DIAGNOSTICS / RADIOLOGY RESULTS: [ ] PLAN 06/24/2023: I am going to attempts arterial for better hemodynamic monitoring, if unsuccessful we will request the assistance of anesthesia who attempted the A-line the OR this a.m. but was unsuccessful. Will order IV fluid bolus with IV LR, we will order bicarb pushes X 6 amps. then drip at 125 mL per hour, we will start the patient on hydrocortisone 50 mg IV q.6 hours we will adjust antibiotic therapy with ceftazidime, Zyvox, fluconazole. We will replace magnesium deficit. We will continue to monitor the lactic acid trend. We will any nephrotoxic agents. We will repeat labs, chest x-ray and ABG in the a.m. and once her condition is stabilized we will attempt to wean off the vent. We will monitor the patient's progress and response to management. We will continue to provide general supportive care, GI and DVT prophylaxis. Further orders per attending MD and hospital course. 06/24/2024: For now, going to continue current management for the patient. She will remain sedated and mechanically vented. We are going to continue with bicarb drip, we will decrease the rate to 50 cc/hour in efforts of avoiding fluid volume overload. The patient will continue on antibiotic course with ceftazidime, linezolid and fluconazole. We will follow the recommendation of the Infectious Disease specialist. For nutrition support, the patient remains on TPN and we will run at 83 cc/hour this with added lipids Q other day. Per the general surgeon, the plan is for repeat surgical intervention this coming for abdominal wound closure and removal of the wound VAC. We will mo nitor the patient's progress and response to management. We will repeat surveillance labs in the morning. We will continue to provide general supportive care, GI and DVT prophylaxis. Further orders per attending MD and hospital course. 06/25/2024: For now, going to continue current management for patient. We will continue sedation and mechanical ventilator support. We will monitor the respiratory status. The patient will continue on nutritional support with TPN. Because of the hyperglycemia, I am going to change the bicarb diluent to sterile water. We will monitor the blood glucose trend and treat accordingly. The patient will remain on broad-spectrum antibiotic therapy and we will follow the input of the Infectious Disease specialist. Per the staff nurse, the plan is for surgical intervention today with Dr. Oswald. We will repeat surveillance labs in the morning. We will monitor the patient's progress and response to management. We will continue to provide general supportive care, GI and DVT pr ophylaxis. Further orders per attending MD and hospital course. 06/26/2024: For now, going to continue current management for the patient. She will continue on mechanical ventilator support, while awaiting surgical intervention. The patient will remain on sedation as well as pressor therapy. Because of the antibiogram , the patient will continue on antibiotic regimen guided by the Infectious Disease specialist. The linezolid will likely need to be discontinued due to the low platelet count. We will replace electrolyte deficit per the protocol as necessary and follow the trend. Currently the patient is on TPN for nutritional supplementation. We will follow the recommendation of the treating specialist. We will continue to monitor the renal parameters. We will continue to provide general supportive care, GI and DVT prophylaxis. Further orders per attending MD and hospital course. 06/27/2024: For now, going to continue current management for the patient. She will continue on mechanical ventilator support. The patient will remain on sedation and we will continue to monitor off pressor therapy. The patient will continue on antibiotic regimen guided by the Infectious Disease specialist. She underwent repeat exploratory laparotomy on 06/26/2024 with small bowel anastomosis, right colon and transverse colon resection, colostomy creation, ileostomy tube placement and wound VAC placement. The patient has noticeable amount of blood in the wound VAC canister, the colostomy reservoir and orally. For this, I am going to order a coagulation panel and a hit panel. Patient might require tranexamic acid and DDAVP to eight in coagulation. We will replace electrolyte deficit per the protocol as necessary and follow the trend. I am going to stop the bicarb drip and we will continue on the IV LR. Currently the patient is on TPN for nutritional supplementation. We will follow the davis mmendation of the treating specialist. We will continue to monitor the renal parameters. We will continue to provide general supportive care, GI and DVT prophylaxis. Further orders per attending MD and hospital course. 1830: At approximately 1700, I was called back to the bedside due to patient bleeding from the colostomy site as well as blood in the wound VAC canister. Patient recently completed transfusion of PRBCs x2 units and hemoglobin came up to 10.5. Also, patient had a low platelet count for which I will request transfusion of platelets x4 units. We will order a dose of tranexamic acid, DDAVP and aminocaproic acid. We will continue monitoring the H and H q.4 hours. The case was discussed with attending MD Dr. Castillo and the surgeon was also noti fied regarding the acute change in condition. We will continue to monitor her response to management. I personally spent approximately 60 minutes of added critical care time to the previously spent during rounds in treatment of this patient, for a total of approximately 100 minutes. This includes time at bedside, time reviewing tests, labs, appropriate images and studies, documentation, and patient care coordination. This time excludes separately billable procedures. 06/28/2024: For now, we are going to continue current management for patient. We will follow the H&H and platelet count parameters. Heparin induced platelet antibody was requested and is pending. Fibrinogen level was within normal range. We will continue to monitor the trend. We will continue mechanical ventilator support. The patient may require hematology consultation going to repeat surveillance labs in the morning. The case was discussed with the general surgeon who made mentioned that if the patient's platelet counts remain stable he would plan to take the patient back to surgery tomorrow. We will continue antibiotic course guided by the Infectious Disease specialist. Currently offering ceftazidime, Flagyl and fluconazole. We will continue nutritional support via TPN. Family members were present at the bedside visiting today and were updated on the patient's current condition, they voiced understanding. We will monitor the patient's progress and response to management. We will continue to provide general supportive care, GI and DVT prophylaxis. Further orders per attending MD and hospital course. NEURO: Minimize central acting medications as possible. Fall Precautions. Well lighted room through the day and minimize interruptions through the night to prevent acute delirium. PULMONARY: Supplemental 02 as needed Titrate Fio2 to keep Spo2 > or = 90% DuoNebs and CPT as needed IS hourly while awake for pulmonary hygiene CARDIOVASCULAR: Follow hemodynamics. Titrate vasopressor to keep MAP >65 or systolic blood pressure >95mmHg DIPS: Ajay Versed and fentanyl LINES: Right upper arm PICC line Right groin A-line GI & NUTRITION: NPO Aspirations precautions Prokinetic agents and laxatives as needed KIDNEYS & ELECTROLYTES: Strict monitoring of intake and output Daily weights Avoid nephrotoxic agents Monitor electrolytes and replace as needed Goal urine output of 30mL/hr or 0.5mL/kg/hr ENDOCRINE: Maintain blood glucose between 100-180 at all times. Insulin sliding scale for blood glucose management INFECTIOUS DISEASE: Trend temperature. Clarke-culture if febrile. Micro: 06/24/2024: E coli in the urine. 06/25/2024: Peritoneal fluid positive for bacteroides uniformis and E coli. 06/25/2024: E coli of the sputum Antibiotics: Ceftazidime, Flagyl and fluconazole. HEMATOLOGY & COAGULATION: Monitor H&H. Keep Hgb > 7 Transfuse 1 unit of PRBC for Hgb < 7 Transfuse 1 pack of platelets of platelets < 20, 000 Watch for any signs and symptoms of bleeding SKIN: Pressure ulcer prevention per facility protocol Rehab: PT/OT Prophylaxis: GI: Protonix IV DVT: Bilateral SCDs Code Status: Full Resuscitation Disposition: ICU Other: I personally spent 40 minutes of critical care time in treatment of this patient. This includes patient management, time at bedside, time reviewing tests, labs, appropriate images and studies, documentation, and patient care coordination. This time excludes separately billable procedures. JOSE SPENCER NP Jun 28, 2024 09:41
[2024-06-28] MEDS: CALCIUM GLUC 1GM 1 GM in 0.9%NACL 100ML 100 ML IV ONE (10:26)
[2024-06-28] MEDS: furoSEMIDE 20MG VIAL IV ONE (13:26)
--- NOTE | 2024-06-28 14:00 | NUR ---
DR. DELUNA FACE TIME FAMILY ( DAUGHTER AND ED) FACE TIME APPROX 10-15MIN. ALL QUESTIONS ANSWERED.
--- NOTE | 2024-06-28 15:07 | PN ---
[facility] PROGRESS NOTE Date of Service: Jun 28, 2024 Time of Service: 15:06 SUBJECTIVE: Ms. Chandler is a 73-year-old female, with a past medical history of hypertension, hypothyroidism, DM, anemia, fibromyalgia, recurrent SpO2 is, chronic left hip pain, cervical CA presented to the ER with the complaints of sharp CBC left lower quadrant abdominal pain with nausea and vomiting since 2 days. Initial vitals blood pressure 62/50 which improved on Levophed. Initial labs WBCs 26.3, lactic acid 6.7. CT abdomen/pelvis resulted in Large amount of free abdominal air is seen concerning for bowel perforation. Surgery consult was obtained. 06/23/2024 postop patient is seen and examined at the bedside. She is sedated on Diprivan and intubated. She underwent exploratory laparotomy 06/23/24 Dr. Valenzuela for perforated small bowel and subsequent peritonitis this morning. Vitals blood pressure 104/58, heart rate 146 on Phenylephrine and vasopressin. Labs WBC 37.4, BUN 2 , creatinine 1.7, magnesium 0.90, TSH 16.6. Lactic acid improved from 7.7- 5. Urinalysis positive for leukocyte esterase. Chest x-ray revealed prominent bilateral interstitial markings. 06/24/2024 Patient is seen at the bedside. She is currently sedated on fentanyl and midazolam. Vitals blood pressure 131/72 on vasopressin. Currently intubated with VT 450, peep 5 and respiratory rate 14. Labs WBC improved from 31.5-26.7, hemoglobin 11.2, BUN 25 , creatinine 2 , lactic acid 10.3. Urine culture resulted in E coli. 06/25/2024 Patient is seen at the bedside. She remains intubated and sedated on fentanyl and midazolam. Vitals blood pressure in 110s/60s. Labs WBC improved from 26.7-11.2, hemoglobin 10.3, BUN 26, creatinine improved from 2-1.5, lactic acid improved from 4.5-3.5. Urine culture, respiratory culture and abdominal site culture resulted in E coli organism. 06/26/24 patient remains sedated and intubated. She has gone down to OR for extensive abdominal surgery 06/27/24 Patient is mechanical ventilated and remains sedated. Patient is off pressors at this time. Patient is status post exploratory laparotomy on 06/22/2024 and right transverse colon resection with anastomosis and wound VAC placement as well as right colostomy and left urostomy day # 1. Patient is afebrile this morning, temperature is 98.2 and the WBC is 6.1. Patient has received 2 units of PRBC throughout the night and this morning for hemoglobin of 6.4 and will receive 1 unit of platelets for platelet level of 34. The linezolid was discontinued yesterday. Patient continues on ceftazidime, metronidazole and fluconazole 06/28/24 patient was seen and examined she remains on mechanical ventilation and sedated. Patient was requiring multiple transfusion products including both platelets and PRBCs. DIC? Who we will consult Hematology REVIEW OF SYSTEMS: Not able to get a proper history as the patient is sedated CONSTITUTIONAL: Denies fevers, chills, or night sweats. No unintentional weight loss reported. NEUROLOGICAL: Denies headache, amaurosis fugax, motor weakness, sensory de ficit, vertigo/spinning sensation, gait abnormalities, or tremors. ENT: No hearing loss, otalgia, otorrhea, rhinitis, rhinorrhea, hoarseness, or sore throat. CARDIOVASCULAR: Denies any exertional angina, dyspnea on exertion, orthopnea, paroxysmal nocturnal dyspnea, palpitations, life-threatening arrhythmias, claudication. PULMONARY: Denies any shortness of breath, cough, phlegm/sputum, hemoptysis, pleuritic chest pain. SLEEP: Denies morning headaches, daytime somnolence or napping. Denies difficulty falling asleep, staying asleep, waking from sleep. Denies knowledge of snoring. GASTROINTESTINAL: Denies any type of dysphagia to either liquids or solids. Denies nausea, vomiting, pyrosis, early satiety, abdominal pain, diarrhea, constipation, or changes in stool consistency or caliber. Denies coffee-ground emesis, hematemesis, hematochezia, or melanotic stools. GENITOURINARY: Denies frequency, urgency, nocturia, hematuria or incontinence (Storage/Irritative symptoms.) Low urinary stream, straining to void, urinary intermittency or hesitancy, splitting of the voiding stream, terminal dribbling. ENDOCRINOLOGIC: Denies polyuria, polydipsia, polyphagia or heat/cold intolerances. HEMATOLOGIC: Denies thrombophilia/previous clots, or coagulopathy/bleeding disorders. ONCOLOGIC: Denies personal history of malignancy. DERMATOLOGIC: Denies rashes or pruritus. PSYCHIATRIC: Denies any suicidal or homicidal ideation. Denies hallucinations. PHYSICAL EXAM GENERAL APPEARANCE: The patient is sedated NEUROLOGICAL: Cranial nerves II-XII grossly intact. Motor is 5/5 in bilateral upper and lower extremities proximal to distal. No sensory deficits. HEENT: Face is symmetric. Pupils are equal and reactive. Extraocular movements are intact. NECK: Supple. No JVD. No thyromegaly. No submental, submandibular, pre-/postauricular, occipital or supraclavicular lymphadenopathy. CHEST: Normal chest expansion. No Telemetry. LUNGS: Absence of any rales, rhonchi or any wheezing. CARDIOVASCULAR: Regular. S1 and S2 normal. No appreciable rubs, murmurs or gallops. ABDOMEN: Soft, nontender, and nondistended. There is no rebound, voluntary guarding, or rigidity. : Deferred. No Hearn. EXTREMITIES: Non-edematous and not cyanotic. No clubbing. Good capillary refill. SKIN: No skin breakdown. Vital Signs (last 8hr) Date Time Temp Pulse Resp B/P (MAP) Pulse Ox O2 Delivery O2 Flow Rate FiO2 06/28/24 14:35 30 06/28/24 14:00 91 34 100 137/71 (93) 06/28/24 13:45 93 29 156/89 (111) 100 138/72 (94) 06/28/24 13:30 92 21 100 135/70 (91) 06/28/24 13:00 94 33 100 134/70 (91) 06/28/24 12:57 100 30 06/28/24 12:45 95 24 151/89 (109) 99 132/71 (91) 06/28/24 12:30 99 20 99 139/73 (95) 06/28/24 12:15 100 Ventilator+ 30 06/28/24 12:00 99.1 06/28/24 12:00 98 20 127/66 (86) 97 06/28/24 11:45 99 11 140/81 (100) 97 127/66 (86) 06/28/24 11:30 99 22 123/65 (84) 99 06/28/24 11:00 101 23 125/67 (86) 100 30 06/28/24 11:00 30 06/28/24 10:45 108 21 144/98 (113) 100 30 173/98 (123) 06/28/24 10:30 101 23 121/65 (83) 100 30 06/28/24 10:00 104 31 99 30 122/66 (84) 06/28/24 10:00 102 30 06/28/24 09:45 106 13 130/80 (97) 100 30 120/66 (84) 06/28/24 09:30 109 17 99 113/63 (80) 06/28/24 09:06 99.5 06/28/24 09:00 110 26 99 110/62 (78) 06/28/24 08:45 110 25 133/71 (91) 99 111/62 (78) 06/28/24 08:30 110 15 99 113/64 (80) 06/28/24 08:00 100 Ventilator+ 30 06/28/24 08:00 111 33 100 118/65 (82) 06/28/24 07:45 110 22 145/83 (103) 100 124/70 (88) 06/28/24 07:30 99 30 06/28/24 07:30 108 15 96 138/76 (96) LABS: Laboratory: Test 06/28/24 11:29 06/28/24 07:42 06/28/24 07:24 06/28/24 03:18 Range/Units Whole Blood Glucose 105 70-110 MG/DL Blood Gas Specimen Type Arterial Arterial Blood pH 7.506 H 7.350-7.450 Arterial Blood Partial Pressure CO2 33 32-45 mmHg Arterial Blood Partial Pressure O2 70.0 L 83.0-108.0 mmHg Arterial Blood HCO3 25.7 21.0-28.0 mmol/L Arterial Blood Oxygen Saturation 95.5 94.0-98.0 % Arterial Blood Base Excess 3.1 H -2.0-3.0 mmol/L Blood Gas Temperature 37.0 35.5-37.0 CELSIUS Blood Gas Respiration Rate 18.0 min. Blood Gas Vent Mode AC ROOM AIR FiO2 30.0 % Blood Gas Tidal Volume 450 ml Blood Gas PEEP 5 cm H2O Blood Gas Specimen Comment ALINEARACELY Hemoglobin 7.4 L 12.0-16.0 g/dL Hematocrit 21.4 L 36-48 % White Blood Count 6.4 4.8-10.8 K/uL Red Blood Count 2.69 L 4.00-5.50 MIL/uL Mean Corpuscular Volume 82.5 79-99 fL Mean Corpuscular Hemoglobin 29.0 27.0-33.0 pg Mean Corpuscular Hemoglobin Concent 35.1 32.0-36.0 g/dL Red Cell Distribution Width 15.3 11.0-15.5 % Platelet Count 48 L 130-400 K/uL Mean Platelet Volume 10.1 7.5-10.5 fL Immature Granulocyte % (Auto) 4.2 H 0-1 % Neutrophils (%) (Auto) 79.0 H 40.0-77.0 % Lymphocytes (%) (Auto) 13.3 L 21.0-51.0 % Monocytes (%) (Auto) 2.5 L 3.0-13.0 % Eosinophils (%) (Auto) 0.5 0.0-8.0 % Basophils (%) (Auto) 0.5 0.0-5.0 % Neutrophils # (Auto) 5.1 1.8-7.7 K/uL Lymphocytes # (Auto) 0.9 L 1.0-4.8 K/uL Monocytes # (Auto) 0.2 0.1-1.0 K/uL Eosinophils # (Auto) 0.03 0.00-0.70 K/uL Basophils # (Auto) 0.03 0.00-0.20 K/uL Absolute Immature Granulocyte (auto 0.27 0-1 K/uL Nucleated Red Blood Cells 0.8 H 0.0-0.19 % Sodium Level 130 L 136-145 mmol/L Potassium Level 4.1 3.5-5.1 mmol/L Chloride Level 96 L 101-111 mmol/L Carbon Dioxide Level 32 21-32 mmol/L Blood Urea Nitrogen 37 H 7-18 mg/dL Creatinine 1.3 H 0.5-1.0 mg/dL Glomerular Filtration Rate Calc 43 >90 mL/min Random Glucose 122 H 70-105 mg/dL Total Calcium 7.4 L 8.5-10.1 mg/dL Total Bilirubin 0.6 0.2-1.0 mg/dL Aspartate Amino Transf (AST/SGOT) 13 10-37 U/L Alanine Aminotransferase (ALT/SGPT) 14 12-78 U/L Alkaline Phosphatase 150 #H 50-136 U/L Total Protein 3.2 L 6.0-8.3 g/dL Albumin 1.2 L 3.5-5.0 g/dL Test 06/27/24 20:15 06/27/24 17:15 06/27/24 04:42 06/27/24 03:32 Range/Units Magnesium Level 2.00 1.80-2.40 mg/dL Prothrombin Time 13.2 H 9.6-11.6 SEC Prothromb Time International Ratio 1.28 H 0.85-1.15 Activated Partial Thromboplast Time 47.9 #H 26.3-35.5 SEC Fibrinogen 301 180-350 mg/dL Lactic Acid Level 2.7 H 0.8-2.5 mmol/L Hemoglobin (Blood Gas) 9.1 L 12.0-16.0 g/dL Sodium (Blood Gas) 127 L 136-145 MMOL/L Bedside Potassium (Blood Gas) 3.5 3.4-4.5 MMOL/L Bedside Chloride (Blood Gas) 96 L 98-107 MMOL/L Bedside Glucose (Blood Gas) 158 H 65-95 MG/DL Bedside Ionized Calcium (Blood Gas) 1.00 L 1.15-1.33 MMOL/L Bedside Lactic Acid (Blood Gas) 2.88 H 0.36-0.75 MMOL/L Current Medications Medications (Trade) Dose Ordered Sig/Dionisio Route PRN Reason Start Time Stop Time Status Last Admin Dose Admin Acetaminophen (TYLenol 325MG TAB) 650 mg Q4H PRN PO TEMPERATURE GREATER THAN 101.5 06/23/24 03:30 07/23/24 03:29 Acetaminophen (TYLenol 650MG SUPPOSITORY) 650 mg Q6H PRN RC MILD PAIN (1-3) 06/22/24 20:30 07/22/24 20:29 Albumin Human 50 ml @ 0 mls/hr AD IV 06/26/24 17:30 06/26/24 17:32 DC Albumin Human 100 ml @ 0 mls/hr Q6H6 IV 06/23/24 00:00 06/23/24 12:52 DC Albumin Human 250 ml @ 400 mls/hr AD IV 06/26/24 17:30 06/27/24 18:03 DC 06/26/24 17:36 400 MLS/HR Albumin Human 250 ml @ 0 mls/hr AD IV 06/23/24 11:30 06/24/24 11:29 DC 06/24/24 13:26 400 MLS/HR Albumin Human 250 ml @ 0 mls/hr AD IV 06/24/24 12:00 06/24/24 13:21 DC Aminocaproic Acid 98642 mg/Sodium Chloride 500 ml @ 0 mls/hr AD IV 06/27/24 19:30 06/27/24 18:37 DC Artificial Tears (Artificial Tears) 1 DROP BID OU 06/24/24 21:00 07/24/24 20:59 06/28/24 09:08 1 DROP Calcium Gluconate 1 gm/Sodium Chloride 100 ml @ 0 mls/hr PROTOCOL IV 06/26/24 16:00 07/26/24 15:59 06/26/24 16:57 400 MLS/HR Calcium Gluconate 2 gm/Sodium Chloride 120 ml @ 120 mls/hr PROTOCOL PRN IV WHEN 2G DOSE IS NEEDED 06/28/24 00:30 07/28/24 00:29 06/28/24 01:06 120 MLS/HR Cefepime HCl (MAXipime 2 gm vial) 2 gm Q12H IVPB 06/22/24 21:00 06/23/24 03:25 DC 06/22/24 22:03 2 GM Cefepime HCl (MAXipime 2 gm vial) 2 gm Q24H IVPB 06/23/24 21:00 06/23/24 21:47 DC 06/23/24 21:15 2 GM Ceftazidime (ForTAZ/TAZidime) 1 gm Q24H IVPB 06/24/24 01:30 07/04/24 01:29 06/28/24 01:06 1 GM Enoxaparin Sodium (Lovenox) 30 mg DAILY SQ 06/23/24 09:00 07/23/24 08:59 06/25/24 07:35 30 MG Fat Emulsion Intravenous 250 ml @ 42 mls/hr DAILY10 IV 06/24/24 10:00 06/24/24 13:22 DC 06/24/24 10:07 42 MLS/HR Fat Emulsion Intravenous 250 ml @ 42 mls/hr MoWeFr IV 06/29/24 20:18 07/29/24 20:17 Cancel Fat Emulsion Intravenous 250 ml @ 42 mls/hr QMOWEFR@1000 IV 06/26/24 10:00 07/24/24 09:59 06/26/24 08:41 42 MLS/HR Fentanyl Citrate 100 ml @ 2.5 mls/hr PROTOCOL IV 06/23/24 09:00 06/26/24 20:27 DC 06/26/24 17:13 2.5 MLS/HR Fentanyl Citrate 2500 mcg/Sodium Chloride 250 ml @ 0 mls/hr AD PRN IV TITRATE 06/26/24 20:30 06/26/24 20:41 DC Fentanyl/Sodium Chloride 250 ml @ 0 mls/hr PROTOCOL IV 06/26/24 21:00 07/01/24 20:59 06/28/24 10:33 21 MLS/HR Fluconazole/ Sodium Chloride (DiFLUCan 200 MG/ NS 100 ML) 200 mg Q24H IVPB 06/23/24 03:30 07/23/24 03:29 06/28/24 03:23 200 MG Furosemide (LASix 20MG VIAL) 20 mg ONCE STAT IV 06/25/24 15:49 06/25/24 15:50 DC 06/25/24 16:11 20 MG Furosemide (LASix 20MG VIAL) 20 mg Q8H IV 06/25/24 17:30 06/27/24 17:29 DC 06/27/24 10:01 20 MG Furosemide (LASix 20MG VIAL) 20 mg Q8H IV 06/28/24 20:00 07/28/24 19:59 Furosemide 100 mg/ Sodium Chloride 100 ml @ 0 mls/hr PROTOCOL IV 06/23/24 12:00 06/23/24 12:44 DC 06/23/24 11:37 5 MLS/HR Heparin Sodium (Porcine) (HEParin 5,000 UNIT VIAL) 5,000 unit BID SQ 06/22/24 21:00 06/22/24 20:48 DC Hydrocortisone Sodium Succinate (Solu-corTEF 100MG) 25 mg Q12H IV 06/26/24 14:00 07/23/24 08:59 06/28/24 13:26 25 MG Hydrocortisone Sodium Succinate (Solu-corTEF 100MG) 50 mg Q6H6 IV 06/23/24 09:00 06/26/24 13:48 DC 06/26/24 05:33 50 MG Hydromorphone HCl (DiLAUDid 1MG INJ) 1 mg Q3H3 PRN IVP SEVERE PAIN (7-10) 06/23/24 03:30 06/28/24 03:29 DC Insulin Human Regular (humuLIN R 100 UNIT/ML 3ML) INSULIN SLIDING SCAL... ACHS SQ 06/22/24 21:00 06/24/24 15:37 DC 06/24/24 10:09 6 UNIT Insulin Human Regular (humuLIN R 100 UNIT/ML 3ML) INSULIN SLIDING SCAL... Q6H6 SQ 06/24/24 18:00 06/25/24 06:25 DC 06/24/24 23:32 7 UNIT Insulin Human Regular 100 unit/ Sodium Chloride 100 ml @ 0 mls/hr AD IV 06/25/24 06:30 07/02/24 06:29 06/28/24 01:08 3 MLS/HR Ketorolac Tromethamine (toRADol) 15 mg Q6H PRN IV MODERATE PAIN (4-6) 06/23/24 03:30 06/27/24 18:23 DC Lactated Ringer's 1,000 ml @ 40 mls/hr Q24H IV 06/26/24 20:30 07/26/24 20:29 06/28/24 00:00 75 MLS/HR Lactated Ringer's 1,000 ml @ 125 mls/hr Q8H IV 06/22/24 20:30 06/23/24 12:44 DC 06/23/24 11:23 125 MLS/HR Lactated Ringer's (Lactated Ringers 1000ml) 500 ml BOLUS IV 06/23/24 05:30 06/24/24 13:22 DC Linezolid 300 ml @ 150 mls/hr Q12H IV 06/23/24 15:00 06/26/24 10:34 DC 06/26/24 03:27 150 MLS/HR Magnesium Sulfate 50 ml @ 0 mls/hr PROTOCOL IV 06/23/24 04:30 07/23/24 04:29 06/27/24 06:31 25 MLS/HR Magnesium Sulfate (Magnesium 4gm Premix 100ml) 4 gm AD IV 06/23/24 05:30 06/23/24 05:59 DC Metoprolol Tartrate (loprESSOR) 5 mg ONCE IV 06/26/24 17:00 06/26/24 21:30 DC 06/26/24 17:28 5 MG Metronidazole/ Sodium Chloride 100 ml @ 100 mls/hr Q8H6 IVPB 06/23/24 14:00 07/03/24 13:59 06/28/24 13:26 100 MLS/HR Midazolam HCl 100 ml @ 0 mls/hr AD PRN IV TITRATE 06/23/24 22:00 07/23/24 21:59 06/28/24 10:33 6 MLS/HR Morphine Sulfate (morPHINE 2MG SYG) 2 mg Q4H PRN IVP SEVERE PAIN (7-10) 06/22/24 20:30 06/23/24 03:21 DC Multivitamins/ Minerals 10 ml/ Amino Acids/ Electrolytes/ Dextrose 2,000 ml @ 83 mls/hr AD IV 06/26/24 20:30 06/27/24 18:02 DC 06/26/24 21:58 83 MLS/HR Norepinephrine 250 ml @ 0 mls/hr PROTOCOL IV 06/22/24 19:30 06/23/24 03:51 DC 06/22/24 20:15 45 MLS/HR Norepinephrine Bitartrate 32 mg/ Sodium Chloride 250 ml @ 0 mls/hr Q0M STAT IV 06/23/24 03:47 06/23/24 03:52 DC 06/23/24 07:22 32.8 MLS/HR Ondansetron HCl (zoFRAN 4MG INJ) 4 mg Q6H PRN IV NAUSEA/VOMITING 06/22/24 20:30 07/22/24 20:29 Ondansetron HCl (zoFRAN 4MG INJ) 4 mg Q6H PRN IVP NAUSEA/VOMITING 06/23/24 03:30 06/23/24 03:18 DC Pantoprazole Sodium (PROTonix 40MG INJ) 40 mg BID IVP 06/23/24 09:00 07/23/24 08:59 06/28/24 09:10 40 MG Pantoprazole Sodium (PROTonix 40MG INJ) 40 mg DAILY IV 06/23/24 09:00 06/23/24 03:19 DC Pharmacy Profile Note (Lace Assessment) 1 each AD MISC 06/24/24 14:00 06/24/24 13:53 DC Pharmacy Profile Note (Pharmacy Communication) 1 each ONCE MISC 06/23/24 14:00 06/23/24 13:46 DC Pharmacy Profile Note (Pharmacy Communication) 1 each ONCE MISC 06/27/24 19:00 06/27/24 18:50 DC Pharmacy Profile Note (Pharmacy Communication) 1 each ONCE STAT MISC 06/25/24 17:11 06/26/24 15:42 DC Phenylephrine HCl 100 mg/Sodium Chloride 250 ml @ 0 mls/hr PROTOCOL IV 06/23/24 08:30 07/23/24 08:29 06/23/24 13:00 32.67 MLS/HR Piperacillin Sod/ Tazobactam Sod (Zosyn 3.375gm+NS 50ml) 3.375 gm Q8H IVPB 06/23/24 03:30 06/23/24 04:34 DC Potassium Chloride 100 ml @ 50 mls/hr AD PRN IV POTASSIUM PROTOCOL 06/23/24 05:30 07/23/24 05:29 06/27/24 06:32 50 MLS/HR Propofol (DIPRivan 1000MG/ 100ML) 1,000 mg PROTOCOL PRN IV SEDATION 06/23/24 03:30 07/23/24 03:29 06/23/24 04:06 1,000 MG Sodium Bicarbonate 150 meq/Dextrose 1,150 ml @ 50 mls/hr Q23H IV 06/26/24 23:00 06/26/24 22:55 DC Sodium Bicarbonate 150 meq/Dextrose 1,150 ml @ 50 mls/hr Q23H IVP 06/23/24 13:00 06/25/24 17:25 DC 06/24/24 19:34 50 MLS/HR Sodium Bicarbonate 150 meq/Dextrose 1,150 ml @ 50 mls/hr Q23H IVP 06/26/24 23:00 06/27/24 17:57 DC 06/27/24 00:56 50 MLS/HR Sodium Bicarbonate 150 meq/Sodium Chloride 1,150 ml @ 50 mls/hr Q23H IVP 06/25/24 17:30 06/25/24 17:52 DC 06/25/24 17:42 50 MLS/HR Sodium Bicarbonate 150 meq/Sterile Water 1,150 ml @ 50 mls/hr Q23H IVP 06/25/24 18:00 06/26/24 14:36 DC 06/25/24 18:18 50 MLS/HR Sodium Chloride 1,000 ml @ 0 mls/hr Q0M IV 06/23/24 12:00 07/23/24 11:59 06/23/24 15:43 1,000 MLS/HR Sodium Chloride (NS 50ml) 50 ml AD IV 06/23/24 03:30 06/23/24 03:26 DC Vasopressin 20 units/Sodium Chloride 100 ml @ 0 mls/hr PROTOCOL IV 06/22/24 20:30 07/22/24 20:29 06/24/24 08:43 6 MLS/HR DIAGNOSTICS / RADIOLOGY: [ ] ASSESSMENT: Septic shock, POA Acute hypoxic Respiratory failure POA Acute encephalopathy, in the setting of severe sepsis POA Acute bowel perforation, with subsequent peritonitis s/p exploratory laparotomy 06/23/2024 Dr. Valenzuela POSusu Urinary tract infection, POA, E coli Acute kidney injury, POA Lactic acidosis, POA, improving Chronic debility, POA DM type 2, POA GERD, POA History small-bowel obstruction History of fibromyalgia Hypertension, now hypotensive in the setting of septic shock Sacral ulcer, POA PLAN: Suspected septic shock, POA Continue IV antibiotic ceftazidime , metronidazole, linezolid q.12h, fluconazole as per ID recommendations Continue IV fluids Acute hypoxic Respiratory failure POA Intubated [PEEP 5, TV 450]and sedated [ on fentanyl and midazolam] Continue ICU care Complete bedrest and Intubation watch Monitor O2 levels and keep saturation above 92% Continue hydrocortisone 50 mg q.6 H Sputum Culture resulted in E coli Acute bowel perforation, with subsequent peritonitis Underwent exploratory laparotomy on 06/23/2024 by The abdominal wound was left open, covered with foam and a surgical drape. A black foam dressing was applied on top and secured with a wound VAC by the wound care today Scheduled for wound closure today by surgery consult. Acute encephalopathy, in the setting of severe sepsis POA Continue IV fluids and antibiotics Monitor lactic acid, electrolyte levels Replace electrolytes as per the protocol, if needed Urinary tract infection, POA, Gram-negative rods Urine culture resulted in E coli Continue IV antibiotics as per ID recommendation Acute kidney injury, POA BUN 26, creatinine 1.5 Continue IV fluids I&Os Daily weights Avoid NSAIDS, Nephrotoxic drugs and contrast Adjust the medication dose to renal dosing DM type 2, POA, GERD, POA Continue Insulin sliding scale Continue Protonix IV Glucometer checks Hypotension, in view of septic shock Blood pressure is ranging in 110s/60s Sacral ulcer, POA Follow up on wound care consult recommendations Patient is currently on a bicarb drip at the rate 50 mL/hour Q 23H in view of lactic acidosis by critical care consult LEI LEPE MD Jun 28, 2024 15:07
[2024-06-28 17:55] LABS: HEMATOCRIT 29.2 % (36-48); MEAN CORPUSCULAR HEMOGLOBIN 29.2 pg (27.0-33.0); MEAN CORPUSCULAR HGB CONC 34.9 g/dL (32.0-36.0); MEAN CORPUSCULAR VOLUME 83.7 fL (79-99); NUCLEATED RED BLOOD CELLS 0.4 % (0.0-0.19); RED BLOOD CELL COUNT(AUTO) 3.49 MIL/uL (4.00-5.50); RED CELL DISTRIBUTION WIDTH 15.1 % (11.0-15.5); WHITE BLOOD COUNT (AUTO) 9.4 K/uL (4.8-10.8)
[2024-06-28 18:09] LABS: CREATININE 1.3 mg/dL (0.5-1.0); POTASSIUM 3.9 mmol/L (3.5-5.1)
--- NOTE | 2024-06-28 18:24 | NUR ---
MD HUNTER UPDATED BY REJI Rider RN REGARDING PATIENTS STATUS FOR END OF DAY. HGH 10.2, PLT 167 AFTER 4 UNITS OF PLATELETS AND 2 UNITS OF PRBC'S.
[2024-06-28] MEDS: furoSEMIDE 20MG VIAL IV SCH (20:08)
--- NOTE | 2024-06-28 21:55 | PN ---
INFECTIOUS DISEASE FOLLOWUP NOTE DATE OF SERVICE: 06/28/2024 SUBJECTIVE: The patient is seen and examined at bedside. The patient has no fever, no chills. The patient remained intubated and sedated on ventilatory support. No rashes. The patient's hemoglobin continued to be transfused. No family at the bedside at this time. PHYSICAL EXAMINATION: VITAL SIGNS: Temperature ____. EYES: No icterus. Pupils equal and reactive. HENT: No oral thrush seen. Orally intubated, on ventilatory support. LUNGS: Crackles bilaterally, no rhonchi. CARDIOVASCULAR: S1, S2 regular. No murmur, gallop. ABDOMEN: Obese, ____ midline abdominal surgical wound sealed with wound vacuum. Jejunostomy tube in place. Ileostomy on the right side functioning well. CENTRAL NERVOUS SYSTEM: The patient has CVA tenderness. SKIN: No rashes, no itchiness. MUSCULOSKELETAL: Edema of upper and lower extremities. GENITOURINARY: Hearn catheter in place. No hematuria. LABORATORY DATA: Sputum culture positive for E. coli. Intraabdominal fluid culture grew E. coli. Proteus species. ASSESSMENT: A 73-year-old female with abdominal pain. Current problems include: * Septic shock. * Intraabdominal abscess, status post evacuation. * Generalized peritonitis. * Intestinal perforation, status post surgery. * Obesity. * Anemia, status post transfusion. PLAN: * Continue critical support. * Continue ventilatory support. * Continue ileostomy care. * Continue pain management. * Monitor blood glucose. * Monitor hemoglobin and hematocrit. * Continue GI prophylaxis. * The patient will be followed up closely. * Continue cefepime. * Continue Flagyl. * Continue fluconazole. TID: [id number] RECEIPT: [id number]
[2024-06-29] VITALS (96 sets, daily range): BP systolic 133–162; BP diastolic 67–87; PULSE 64–85; RESP 5–23; TEMP 97.5–99.9; O2SAT 97–100
[2024-06-29] MEDS: M.V.I. IV [ADULT] 10 ML in CLINIMIX 5%AA/D15W 2000ML 2,000 ML IV ONE (04:28)
[2024-06-29 04:46] LABS: BASOPHILS # (AUTO) 0.06 K/uL (0.00-0.20); BASOPHILS % (AUTO) 0.6 % (0.0-5.0); EOSINOPHILS # (AUTO) 0.03 K/uL (0.00-0.70); EOSINOPHILS % (AUTO) 0.3 % (0.0-8.0); HEMATOCRIT 31.3 % (36-48); IMMATURE GRANULOCYTE ABSOLUTE 0.29 K/uL (0-1); LYMPHOCYTES # (AUTO) 0.7 K/uL (1.0-4.8); LYMPHOCYTES % (AUTO) 6.9 % (21.0-51.0); MEAN CORPUSCULAR HEMOGLOBIN 29.4 pg (27.0-33.0); MEAN CORPUSCULAR HGB CONC 35.5 g/dL (32.0-36.0); MONOCYTES # (AUTO) 0.3 K/uL (0.1-1.0); MONOCYTES % (AUTO) 2.8 % (3.0-13.0); NEUTROPHILS # (AUTO) 8.4 K/uL (1.8-7.7); NEUTROPHILS % (AUTO) 86.4 % (40.0-77.0); NUCLEATED RED BLOOD CELLS 0.2 % (0.0-0.19); PLATELET COUNT (AUTO) 131 K/uL (130-400); RED BLOOD CELL COUNT(AUTO) 3.77 MIL/uL (4.00-5.50); RED CELL DISTRIBUTION WIDTH 15.5 % (11.0-15.5); WHITE BLOOD COUNT (AUTO) 9.7 K/uL (4.8-10.8)
[2024-06-29 04:57] LABS: ALBUMIN 1.4 g/dL (3.5-5.0); BILIRUBIN,TOTAL 0.8 mg/dL (0.2-1.0); CREATININE 1.3 mg/dL (0.5-1.0); MAGNESIUM 1.9 mg/dL (1.80-2.40); POTASSIUM 3.6 mmol/L (3.5-5.1); TOTAL PROTEIN, SERUM 3.9 g/dL (6.0-8.3)
[2024-06-29 05:01] LABS: INR 1.35 (0.85-1.15); PROTHROMBIN TIME 13.9 SEC (9.6-11.6)
[2024-06-29] MEDS ORDERED: CALCIUM GLUC 1GM 1 GM in 0.9%NACL 100ML 100 ML IV SCH (08:30)
--- NOTE | 2024-06-29 09:45 | HMCIMG ---
Exam Type: CHEST 1VW Clinical Information: PNA Comparison: June 28, 2024 Findings: Pulmonary pattern is as before. No worrisome interval changes have taken place. Impression: Stable exam.
[2024-06-29] MEDS: furoSEMIDE 100MG VIAL 100 MG in 0.9%NACL 100ML 100 ML IV SCH (10:30)
--- NOTE | 2024-06-29 11:25 | PN ---
GENERAL SURGERY PROGRESS NOTE DATE OF SERVICE: Jun 29, 2024 TIME OF SERVICE: 11:25 PROBLEM LISTS: [ ] Perforated bowel SBO INTERVAL HISTORY: [ ] PHYSICAL EXAMINATION: GENERAL: [Patient is lying in bed, intubated and sedated HEAD: [Normal with no signs of head trauma.] EYES: [Not pale not jaundiced afebrile to touch.] ENT: [ Normal.] NECK: [Supple,no tenderness,no lymphadenopathy,no masses,no thyromegaly ,no bruits, no JVD.] LUNGS: [Clear breath sounds bilaterally. No wheezes, rales, or rhonchi.] HEART: [Regular rate and rhythm. Normal S1 and S2, without murmurs, rub or gallop.] ABD: [Wound VAC in place : [Normal, no suprapubic tenderness.] LYMPH: [No lymphadenopathy noted.] EXT: [ Swollen extremities SKIN: [ No rashes or lesions.] NEURO: Intubated and sedated LABORATORY: [ ] Hematology Labs: Test 06/29/24 04:36 Range/Units White Blood Count 9.7 4.8-10.8 K/uL Red Blood Count 3.77 L 4.00-5.50 MIL/uL Hemoglobin 11.1 L 12.0-16.0 g/dL Hematocrit 31.3 L 36-48 % Mean Corpuscular Volume 83.0 79-99 fL Mean Corpuscular Hemoglobin 29.4 27.0-33.0 pg Mean Corpuscular Hemoglobin Concent 35.5 32.0-36.0 g/dL Red Cell Distribution Width 15.5 11.0-15.5 % Platelet Count 131 130-400 K/uL Mean Platelet Volume 10.3 7.5-10.5 fL Immature Granulocyte % (Auto) 3.0 H 0-1 % Neutrophils (%) (Auto) 86.4 H 40.0-77.0 % Lymphocytes (%) (Auto) 6.9 L 21.0-51.0 % Monocytes (%) (Auto) 2.8 L 3.0-13.0 % Eosinophils (%) (Auto) 0.3 0.0-8.0 % Basophils (%) (Auto) 0.6 0.0-5.0 % Neutrophils # (Auto) 8.4 H 1.8-7.7 K/uL Lymphocytes # (Auto) 0.7 L 1.0-4.8 K/uL Monocytes # (Auto) 0.3 0.1-1.0 K/uL Eosinophils # (Auto) 0.03 0.00-0.70 K/uL Basophils # (Auto) 0.06 0.00-0.20 K/uL Absolute Immature Granulocyte (auto 0.29 0-1 K/uL Nucleated Red Blood Cells 0.2 H 0.0-0.19 % Chemistry Labs: Test 06/29/24 04:36 06/28/24 11:29 Range/Units Sodium Level 130 L 136-145 mmol/L Potassium Level 3.6 3.5-5.1 mmol/L Chloride Level 96 L 101-111 mmol/L Carbon Dioxide Level 27 21-32 mmol/L Blood Urea Nitrogen 45 H 7-18 mg/dL Creatinine 1.3 H 0.5-1.0 mg/dL Glomerular Filtration Rate Calc 43 >90 mL/min Random Glucose 146 #H 70-105 mg/dL Total Calcium 7.4 L 8.5-10.1 mg/dL Magnesium Level 1.90 1.80-2.40 mg/dL Total Bilirubin 0.8 0.2-1.0 mg/dL Aspartate Amino Transf (AST/SGOT) 17 10-37 U/L Alanine Aminotransferase (ALT/SGPT) 12 12-78 U/L Alkaline Phosphatase 234 H 50-136 U/L B-Type Natriuretic Peptide 1430 H 0-100 pg/mL Total Protein 3.9 L 6.0-8.3 g/dL Albumin 1.4 L 3.5-5.0 g/dL Whole Blood Glucose 105 70-110 MG/DL Coagulation Labs: Test 06/29/24 04:36 Range/Units Prothrombin Time 13.9 H 9.6-11.6 SEC Prothromb Time International Ratio 1.35 H 0.85-1.15 Activated Partial Thromboplast Time 35.0 26.3-35.5 SEC Fibrinogen 486 H 180-350 mg/dL DIAGNOSTICS / RADIOLOGY: [Copy/Paste Echos/Imaging Report here] ASSESSMENT: [] Acute abdomen Perforated bowel Recurrent SBO Multiple abdominal surgeries Umbilical/incisional hernia S/p exploratory laparotomy PLAN: [] Aggressive resuscitation NPO/IVF/IV ANTIOBIOTICS Labs in ELSA Tamez MD Jun 29, 2024 11:25
--- NOTE | 2024-06-29 12:24 | PN ---
[facility] PROGRESS NOTE Date Patient Seen: Jun 29, 2024 Time of Visit: 12:23 Supervising Physician: Dr. Castillo Consulting Physician: [facility] Outpatient Specialists: [ ] Inpatient Consults: [ ] PROBLEM LIST: Acute hypoxic Respiratory failure POA Acute encephalopathy, in the setting of severe sepsis POA Acute bowel perforation with subsequent peritonitis s/p exploratory laparotomy 06/23/24 Dr. Valenzuela POA Culture + E-coli. Repeat exploratory laparotomy on 06/26/2024 with small bowel anastomosis, right colon and transverse colon resection, colostomy creation, ileostomy tube placement and wound VAC placement. Shock etiology sepsis POA Suspected intraabdominal hemorrhage Urinary tract infection, POA E-coli multisensitive Pneumonitis, culture + for E-coli Acute kidney injury, POA Lactic acidosis, POA Acute blood loss anemia Thrombocytopenia Chronic debility, POA DM type 2, POA GERD, POA History small-bowel obstruction History of fibromyalgia History of hypertension, now hypotensive in the setting of septic shock versus hemorrhagic shock INTERVAL HISTORY: 06/24/2023: At the time of my evaluation the patient was lying in bed. She was recently on exploratory laparotomy by Dr. Valenzuela and is critically ill appearing. The patient remains sedated on Diprivan, RASS score of -4. intubated and on mechanical ventilator support for respiratory management. Patient is currently on ACVC mode with FiO2 40%, total volume of 450, peep of 5 and rate of 14 Initially, on the monitor was unable to obtain a blood pressure reading. The patient was tachycardic in the 160. Chemistry panel showed a sodium of 140, potassium of 3.9, chloride 107, CO2 of 13, BUN 22, creatinine of 1.9, blood glucose of 52, Mag one 0.50 a lactic acid of 8.6. Patient has a cumulative balance of positive 269. CBC showed a WBC of 37.4, H&H 10.1/29.6 and a platelet count of 575. Patient currently on cefepime and fluconazole for antibiotic coverage. No other complaint. 06/24/2024: At the time of my evaluation, the patient was lying in bed. She remains sedated with Versed and fentanyl, RASS scale of -5. The patient remains intubated and mechanically vented. On labs, WBC count improved from 31.5-26.7, H&H 11.2/32.4 and a platelet count of 312. Chemistry panel was notable for a BUN of 25, creatinine of 2.0 and a GFR of 26. Lactic acid is improving, today 7.0 and magnesium count of 1.80. Microbiology data showed positive E coli in urine multi sensitive. Anaerobic culture of peritoneal fluid showing no anaerobes and respiratory culture Gram stain showing Gram-negative rods. Patient is currently on antibiotic therapy with ceftazidime, linezolid and fluconazole. No other complaint. 06/25/2024: At the time of my evaluation, the patient is lying in bed. She remains sedated on mechanically vented. ABG this a.m. showed a pH of 7.436, pCO2 41, PO2 91.0, HC03 26.9, SpO2 96.4 and a base excess of 2.5 On the monitor, the patient is hemodynamically stable. Laboratory data today was notable for a significantly improved WBC count down to 11.2 from 20/6 0.7 yesterday. H&H and platelet count remains stable. Chemistry panel was notable for a BUN of 26, creatinine of 1.5 and a GFR of 37. Blood glucose this a.m. was in the 400s. This may be secondary to the dextrose diluent for the bicarb drip. The TPN for nutritional support may also be a contributing factor to the hyperglycemia. The patient remains on broad-spectrum antibiotic coverage with ceftazidime, linezolid , fluconazole and Flagyl. Lactic acid level has significantly improved, today 3.5. Chest x-ray today showed vascular congestion and bibasilar atelectasis. No other complaint. 06/26/2024: At the time of my evaluation, the patient was lying in bed. She remains on fentanyl/Versed sedation, RASS score -5. She remains endotracheally intubated and on a mechanical ventilator support. On the monitor, the patient is hemodynamically stable on Ajay-Synephrine drip on labs today, there was notation of a improved WBC count 6.9 today, H&H 9.3/26.0 and a platelet count of 70 which necessitates a drop from 130 yesterday. On chemistry, findings were significant for low sodium of 134 and a severely low potassium of 2.9 with a chloride of 98. Renal parameters showed improving creatinine with a BUN of 28, creatinine of 1.4 and a GFR of 40. Total calcium of 6.8. Microbiology data showing E coli growth in urine, peritoneal fluid and sputum. There was also bacteroides uniformis growth in the peritoneal fluid. The patient continues on antibiotic coverage with ceftazidime, fluconazole, metronidazole and linezolid. Per the staff nurse, the plan is for surgical intervention today by Dr. Oswald. No other complaint. 06/27/2024: At the time of my evaluation, the patient was lying in bed. She remains on fentanyl/Versed sedation, RASS score -5. She remains endotracheally intubated and on a mechanical ventilator support. ABG this a.m. showed a pH of 7.46, pCO2 37, PO2 of 92.8, HC03 of 26.1 and a base excess of 2.3. On the monitor, the patient is tachycardic in the 120s and blood pressure stable systolic in the 120s currently off pressor therapy. Laboratory data today was notable for again downward trend of H&H with a hemoglobin of 7.1. Chemistry panel showed improving renal parameters. Total calcium of 6.8 when corrected for albumin is within normal range and a Mag of 1.80. Chest x-ray obtained today showed persisting pulmonary vascular congestion and bilateral infiltrates. The patient is on sodium bicarb at 50 mL/hour and is on LR at 75 cc/hour. She also remains on TPN for nutritional support. She continues on antibiotic therapy by the Infectious Disease specialist currently recommending ceftazidime, fluconazole and metronidazole. No other complaint. 06/28/2024: At the time of my evaluation, the patient was lying in bed. She remains on fentanyl/Versed sedation, RASS score -5. She remains endotracheally intubated and on a mechanical ventilator support. On the monitor, the patient is hemodynamically stable. Late afternoon yesterday, there was concern for bleeding through the oral route, two with a colostomy and into the wound VAC canister. H&H was trending down as well as platelet count for this, the patient has received multiple doses of PRBCs, plasmapheresis and also Amicar, TXA and DDAVP was infused. Today, there was slight improvement on hematology parameters. Chemistry panel was notable for a sodium of 130, potassium 4.1, chloride is 96, BUN is 37, creatinine of 1.3, calcium of 7.4, patient did receive calcium gluconate post PRBC transfusion. Imaging of the chest shows persisting is paced consolidation. No other complaint. 06/29/2024: At the time of my evaluation, the patient was lying in bed. She remains intubated and mechanically vented. On the monitor, the patient remains hemodynamically stable. Laboratory data was notable for a downward trending H&H of 7.4 and recovered platelet count 131, after receiving PRBCs and platelet transfusion yesterday. Chemistry panel was notable for a sodium of 130, chloride 96, BUN of 45, creatinine of 1.3 GFR of 43 and a BNP of 1430. Coagulation panel showed a PT of 13.9, INR 1.35, PTT of 35.0 and a fibrinogen of 486. She continues on antibiotic therapy as ordered by the Infectious Disease specialist. Imaging of the chest today shows vascular congestion. Per the staff nurse, there is minimal bloody output to the wound VAC and colostomy bag. Oral bleeding has subsided. No other complaint. REVIEW OF SYSTEMS: Unable to obtain due to alteration in mental status PHYSICAL EXAM: GENERAL: Sedated and intubated. HEENT: EOMI, Sclera non icteric, moist mucosa NECK: Supple, no JVD, trachea midline LUNGS: Diminished bibasilar air. No wheezes HEART: Sinus tach on the monitor. Normal S1 and S2, without murmurs ABD: Abdomen is distended and tender to palpate. Bowel sounds present EXT: No clubbing cyanosis or edema NEURO: Sedated. Vital Signs (last 8hr) Date Time Temp Pulse Resp B/P (MAP) Pulse Ox O2 Delivery O2 Flow Rate FiO2 06/29/24 12:00 99.3 Ventilator 30 06/29/24 11:15 67 18 100 30 141/71 (94) 06/29/24 11:00 67 18 100 142/72 (95) 06/29/24 10:45 68 18 100 141/73 (95) 06/29/24 10:35 30 06/29/24 10:30 68 18 100 143/73 (96) 06/29/24 10:15 69 18 100 139/72 (94) 06/29/24 10:00 70 18 100 140/72 (94) 06/29/24 09:48 78 30 06/29/24 09:45 69 18 100 139/72 (94) 06/29/24 09:30 70 18 100 139/72 (94) 06/29/24 09:15 69 18 100 138/71 (93) 06/29/24 09:00 72 18 100 142/73 (96) 06/29/24 08:45 71 18 100 141/72 (95) 06/29/24 08:30 73 18 100 145/75 (98) 06/29/24 08:15 78 18 100 147/76 (99) 06/29/24 08:00 99.9 Ventilator 30 06/29/24 08:00 77 18 100 149/74 (99) 06/29/24 07:45 74 18 149/80 (103) 100 139/71 (93) 06/29/24 07:30 71 18 100 137/68 (91) 06/29/24 07:15 72 18 100 140/69 (92) 06/29/24 07:00 73 18 100 140/69 (92) 06/29/24 06:35 30 06/29/24 06:30 76 18 100 144/71 (95) 06/29/24 06:22 76 30 06/29/24 06:15 75 18 100 147/72 (97) 06/29/24 06:00 73 18 100 139/68 (91) 06/29/24 05:45 78 18 151/82 (105) 100 145/72 (96) 06/29/24 05:30 75 18 100 142/70 (94) 06/29/24 05:15 76 18 100 144/71 (95) 06/29/24 05:00 83 18 100 148/73 (98) 06/29/24 04:45 80 18 155/87 (109) 100 151/75 (100) 06/29/24 04:30 75 19 100 150/73 (98) LABS: Hematology Labs: Test 06/29/24 04:36 Range/Units White Blood Count 9.7 4.8-10.8 K/uL Red Blood Count 3.77 L 4.00-5.50 MIL/uL Hemoglobin 11.1 L 12.0-16.0 g/dL Hematocrit 31.3 L 36-48 % Mean Corpuscular Volume 83.0 79-99 fL Mean Corpuscular Hemoglobin 29.4 27.0-33.0 pg Mean Corpuscular Hemoglobin Concent 35.5 32.0-36.0 g/dL Red Cell Distribution Width 15.5 11.0-15.5 % Platelet Count 131 130-400 K/uL Mean Platelet Volume 10.3 7.5-10.5 fL Immature Granulocyte % (Auto) 3.0 H 0-1 % Neutrophils (%) (Auto) 86.4 H 40.0-77.0 % Lymphocytes (%) (Auto) 6.9 L 21.0-51.0 % Monocytes (%) (Auto) 2.8 L 3.0-13.0 % Eosinophils (%) (Auto) 0.3 0.0-8.0 % Basophils (%) (Auto) 0.6 0.0-5.0 % Neutrophils # (Auto) 8.4 H 1.8-7.7 K/uL Lymphocytes # (Auto) 0.7 L 1.0-4.8 K/uL Monocytes # (Auto) 0.3 0.1-1.0 K/uL Eosinophils # (Auto) 0.03 0.00-0.70 K/uL Basophils # (Auto) 0.06 0.00-0.20 K/uL Absolute Immature Granulocyte (auto 0.29 0-1 K/uL Nucleated Red Blood Cells 0.2 H 0.0-0.19 % Chemistry Labs: Test 06/29/24 04:36 06/28/24 11:29 Range/Units Sodium Level 130 L 136-145 mmol/L Potassium Level 3.6 3.5-5.1 mmol/L Chloride Level 96 L 101-111 mmol/L Carbon Dioxide Level 27 21-32 mmol/L Blood Urea Nitrogen 45 H 7-18 mg/dL Creatinine 1.3 H 0.5-1.0 mg/dL Glomerular Filtration Rate Calc 43 >90 mL/min Random Glucose 146 #H 70-105 mg/dL Total Calcium 7.4 L 8.5-10.1 mg/dL Magnesium Level 1.90 1.80-2.40 mg/dL Total Bilirubin 0.8 0.2-1.0 mg/dL Aspartate Amino Transf (AST/SGOT) 17 10-37 U/L Alanine Aminotransferase (ALT/SGPT) 12 12-78 U/L Alkaline Phosphatase 234 H 50-136 U/L B-Type Natriuretic Peptide 1430 H 0-100 pg/mL Total Protein 3.9 L 6.0-8.3 g/dL Albumin 1.4 L 3.5-5.0 g/dL Whole Blood Glucose 105 70-110 MG/DL Coagulation Labs: Test 06/29/24 04:36 Range/Units Prothrombin Time 13.9 H 9.6-11.6 SEC Prothromb Time International Ratio 1.35 H 0.85-1.15 Activated Partial Thromboplast Time 35.0 26.3-35.5 SEC Fibrinogen 486 H 180-350 mg/dL DIAGNOSTICS / RADIOLOGY RESULTS: [ ] PLAN 06/24/2023: I am going to attempts arterial for better hemodynamic monitoring, if unsuccessful we will request the assistance of anesthesia who attempted the A-line the OR this a.m. but was unsuccessful. Will order IV fluid bolus with IV LR, we will order bicarb pushes X 6 amps. then drip at 125 mL per hour, we will start the patient on hydrocortisone 50 mg IV q.6 hours we will adjust antibiotic therapy with ceftazidime, Zyvox, fluconazole. We will replace magnesium deficit. We will continue to monitor the lactic acid trend. We will any nephrotoxic agents. We will repeat labs, chest x-ray and ABG in the a.m. and once her condition is stabilized we will attempt to wean off the vent. We will monitor the patient's progress and response to management. We will continue to provide general supportive care, GI and DVT prophylaxis. Further orders per attending MD and hospital course. 06/24/2024: For now, going to continue current management for the patient. She will remain sedated and mechanically vented. We are going to continue with bicarb drip, we will decrease the rate to 50 cc/hour in efforts of avoiding fluid volume overload. The patient will continue on antibiotic course with ceftazidime, linezolid and fluconazole. We will follow the recommendation of the Infectious Disease specialist. For nutrition support, the patient remains on TPN and we will run at 83 cc/hour this with added lipids Q other day. Per the general surgeon, the plan is for repeat surgical intervention this coming for abdominal wound closure and removal of the wound VAC. We will monitor the patient's progress and response to management. We will repeat surveillance labs in the morning. We will continue to provide general supportive care, GI and DVT prophylaxis. Further orders per attending MD and hospital course. 06/25/2024: For now, going to continue current management for patient. We will continue sedation and mechanical ventilator support. We will monitor the respiratory status. The patient will continue on nutritional support with TPN. Because of the hyperglycemia, I am going to change the bicarb diluent to sterile water. We will monitor the blood glucose trend and treat accordingly. The patient will remain on broad-spectrum antibiotic therapy and we will follow the input of the Infectious Disease specialist. Per the staff nurse, the plan is for surgical intervention today with Dr. Oswald. We will repeat surveillance labs in the morning. We will monitor the patient's progress and response to management. We will continue to provide general supportive care, GI and DVT prophylaxis. Further orders per attending MD and hospital course. 06/26/2024: For now, going to continue current management for the patient. She will continue on mechanical ventilator support, while awaiting surgical intervention. The patient will remain on sedation as well as pressor therapy. Because of the antibiogram , the patient will continue on antibiotic regimen guided by the Infectious Disease specialist. The linezolid will likely need to be discontinued due to the low platelet count. We will replace electrolyte deficit per the protocol as necessary and follow the trend. Currently the patient is on TPN for nutritional supplementation. We will follow the recommendation of the treating specialist. We will continue to monitor the renal parameters. We will continue to provide general supportive care, GI and DVT prophylaxis. Further orders per attending MD and hospital course. 06/27/2024: For now, going to continue current management for the patient. She will continue on mechanical ventilator support. The patient will remain on sedation and we will continue to monitor off pressor therapy. The patient will continue on antibiotic regimen guided by the Infectious Disease specialist. She underwent repeat exploratory laparotomy on 06/26/2024 with small bowel anastomosis, right colon and transverse colon resection, colostomy creation, ileostomy tube placement and wound VAC placement. The patient has noticeable amount of blood in the wound VAC canister, the colostomy reservoir and orally. For this, I am going to order a coagulation panel and a hit panel. Patient might require tranexamic acid and DDAVP to eight in coagulation. We will replace electrolyte deficit per the protocol as necessary and follow the trend. I am going to stop the bicarb drip and we will continue on the IV LR. Currently the patient is on TPN for nutritional supplementation. We will follow the recommendation of the treating specialist. We will continue to monitor the renal parameters. We will continue to provide general supportive care, GI and DVT prophylaxis. Further orders per attending MD and hospital course. 1830: At approximately 1700, I was called back to the bedside due to patient bleeding from the colostomy site as well as blood in the wound VAC canister. Patient recently completed transfusion of PRBCs x2 units and hemoglobin came up to 10.5. Also, patient had a low platelet count for which I will request transfusion of platelets x4 units. We will order a dose of tranexamic acid, DDAVP and aminocaproic acid. We will continue monitoring the H and H q.4 hours. The case was discussed with attending MD Dr. Castillo and the surgeon was also notified regarding the acute change in condition. We will continue to monitor her response to management. I personally spent approximately 60 minutes of added critical care time to the previously spent during rounds in treatment of this patient, for a total of approximately 100 minutes. This includes time at bedside, time reviewing tests, labs, appropriate images and studies, documentation, and patient care co ordination. This time excludes separately billable procedures. 06/28/2024: For now, we are going to continue current management for patient. We will follow the H&H and platelet count parameters. Heparin induced platelet antibody was requested and is pending. Fibrinogen level was within normal range. We will continue to monitor the trend. We will continue mechanical ventilator support. The patient may require hematology consultation going to repeat surveillance labs in the morning. The case was discussed with the general surgeon who made mentioned that if the patient's platelet counts remain stable he would plan to take the patient back to surgery tomorrow. We will continue antibiotic course guided by the Infectious Disease specialist. Currently offering ceftazidime, Flagyl and fluconazole. We will continue nutritional support via TPN. Family members were present at the bedside visiting today and were updated on the patient's current condition, they voiced understanding. We will monitor the patient's progress and response to management. We will continue to provide general supportive care, GI and DVT prophylaxis. Further orders per attending MD and hospital course. 06/29/2024: For now, we will continue current management for the patient. She will remain intubated and sedated as the general surgeon is pending to take the patient back to the operating room for abdominal wound closure. She remains with a wound VAC therapy and colostomy bag in place. Because of the downward trending platelets and H&H the permit agent was consulted and we will follow his recommendations for management. The patient is going to continue on antibiotic therapy per the Infectious Disease specialist , is currently on ceftazidime, fluconazole and metronidazole. Because of diffuse edema and volume overload with a elevated BNP, the patient will be started on a Lasix drip and we will monitor the urinary output. Going to repeat surveillance labs in the morning as well as chest x-ray. We will monitor the patient's progress and response to management. Appreciate the input of the treating specialist. Further orders per attending MD and hospital course. NEURO: Minimize central acting medications as possible. Fall Precautions. Well lighted room through the day and minimize interruptions through the night to prevent acute delirium. PULMONARY: Supplemental 02 as needed Titrate Fio2 to keep Spo2 > or = 90% DuoNebs and CPT as needed IS hourly while awake for pulmonary hygiene CARDIOVASCULAR: Follow hemodynamics. Titrate vasopressor to keep MAP >65 or systolic blood pressure >95mmHg DIPS: Ajay Versed and fentanyl LINES: Right upper arm PICC line Right groin A-line GI & NUTRITION: NPO Aspirations precautions Prokinetic agents and laxatives as needed KIDNEYS & ELECTROLYTES: Strict monitoring of intake and output Daily weights Avoid nephrotoxic agents Monitor electrolytes and replace as needed Goal urine output of 30mL/hr or 0.5mL/kg/hr ENDOCRINE: Maintain blood glucose between 100-180 at all times. Insulin sliding scale for blood glucose management INFECTIOUS DISEASE: Trend temperature. Clarke-culture if febrile. Micro: 06/24/2024: E coli in the urine. 06/25/2024: Peritoneal fluid positive for bacteroides uniformis and E coli. 06/25/2024: E coli of the sputum Antibiotics: Ceftazidime, Flagyl and fluconazole. HEMATOLOGY & COAGULATION: Monitor H&H. Keep Hgb > 7 Transfuse 1 unit of PRBC for Hgb < 7 Transfuse 1 pack of platelets of platelets < 20, 000 Watch for any signs and symptoms of bleeding SKIN: Pressure ulcer prevention per facility protocol Rehab: PT/OT Prophylaxis: GI: Protonix IV DVT: Bilateral SCDs Code Status: Full Resuscitation Disposition: ICU Other: I personally spent 40 minutes of critical care time in treatment of this patien t. This includes patient management, time at bedside, time reviewing tests, labs, appropriate images and studies, documentation, and patient care coordination. This time excludes separately billable procedures. JOSE SPENCER NP Jun 29, 2024 12:24
--- NOTE | 2024-06-29 12:35 | PN ---
[facility] PROGRESS NOTE Date of Service: Jun 29, 2024 Time of Service: 12:07 SUBJECTIVE: Ms. Chandler is a 73-year-old female, with a past medical history of hypertension, hypothyroidism, DM, anemia, fibromyalgia, recurrent SpO2 is, chronic left hip pain, cervical CA presented to the ER with the complaints of sharp CBC left lower quadrant abdominal pain with nausea and vomiting since 2 days. Initial vitals blood pressure 62/50 which improved on Levophed. Initial labs WBCs 26.3, lactic acid 6.7. CT abdomen/pelvis resulted in Large amount of free abdominal air is seen concerning for bowel perforation. Surgery consult was obtained. 06/23/2024 postop patient is seen and examined at the bedside. She is sedated on Diprivan and intubated. She underwent exploratory laparotomy 06/23/24 Dr. Valenzuela for perforated small bowel and subsequent peritonitis this morning. Vitals blood pressure 104/58, heart rate 146 on Phenylephrine and vasopressin. Labs WBC 37.4, BUN 2 , creatinine 1.7, magnesium 0.90, TSH 16.6. Lactic acid improved from 7.7- 5. Urinalysis positive for leukocyte esterase. Chest x-ray revealed prominent bilateral interstitial markings. 06/24/2024 Patient is seen at the bedside. She is currently sedated on fentanyl and midazolam. Vitals blood pressure 131/72 on vasopressin. Currently intubated with VT 450, peep 5 and respiratory rate 14. Labs WBC improved from 31.5-26.7, hemoglobin 11.2, BUN 25 , creatinine 2 , lactic acid 10.3. Urine culture resulted in E coli. 06/25/2024 Patient is seen at the bedside. She remains intubated and sedated on fentanyl and midazolam. Vitals blood pressure in 110s/60s. Labs WBC improved from 26.7-11.2, hemoglobin 10.3, BUN 26, creatinine improved from 2-1.5, lactic acid improved from 4.5-3.5. Urine culture, respiratory culture and abdominal site culture resulted in E coli organism. 06/26/24 patient remains sedated and intubated. She has gone down to OR for extensive abdominal surgery 06/27/24 Patient is mechanical ventilated and remains sedated. Patient is off pressors at this time. Patient is status post exploratory laparotomy on 06/22/2024 and right transverse colon resection with anastomosis and wound VAC placement as well as right colostomy and left urostomy day # 1. Patient is afebrile this morning, temperature is 98.2 and the WBC is 6.1. Patient has received 2 units of PRBC throughout the night and this morning for hemoglobin of 6.4 and will receive 1 unit of platelets for platelet level of 34. The linezolid was discontinued yesterday. Patient continues on ceftazidime, metronidazole and fluconazole 06/28/24 patient was seen and examined she remains on mechanical ventilation and sedated. Patient was requiring multiple transfusion products including both platelets and PRBCs. DIC? Who we will consult Hematology 06/29/2024 Patient is seen at the bedside. She remains sedated on fentanyl and midazolam and intubated, NG tube in place. Her blood pressure is ranging in between 130/70s to 140/70s. She is currently not on any vasopressors. Labs hemoglobin 11.1, platelets 134 post 2 unit PRBC and 4 platelet transfusions yesterday. Sodium 130, chloride 96, BUN 45, creatinine 1.3, BNP of 1430. Urinary output is 2.4 L. She is currently on Lasix drip at the rate of 5 mL/hour. Plan for wound closure by surgery consult tomorrow. REVIEW OF SYSTEMS: Not able to get a proper history as the patient is sedated CONSTITUTIONAL: Denies fevers, chills, or night sweats. No unintentional weight loss reported. NEUROLOGICAL: Denies headache, amaurosis fugax, motor weakness, sensory deficit, vertigo/spinning sensation, gait abnormalities, or tremors. ENT: No hearing loss, otalgia, otorrhea, rhinitis, rhinorrhea, hoarseness, or sore throat. CARDIOVASCULAR: Denies any exertional angina, dyspnea on exertion, orthopnea, paroxysmal nocturnal dyspnea, palpitations, life-threatening arrhythmias, claudication. PULMONARY: Denies any shortness of breath, cough, phlegm/sputum, hemoptysis, pleuritic chest pain. SLEEP: Denies morning headaches, daytime somnolence or napping. Denies difficulty falling asleep, staying asleep, waking from sleep. Denies knowledge of snoring. GASTROINTESTINAL: Denies any type of dysphagia to either liquids or solids. Denies nausea, vomiting, pyrosis, early satiety, abdominal pain, diarrhea, constipation, or changes in stool consistency or caliber. Denies coffee-ground emesis, hematemesis, hematochezia, or melanotic stools. GENITOURINARY: Denies frequency, urgency, nocturia, hematuria or incontinence (Storage/Irritative symptoms.) Low urinary stream, straining to void, urinary intermittency or hesitancy, splitting of the voiding stream, terminal dribbling. ENDOCRINOLOGIC: Denies polyuria, polydipsia, polyphagia or heat/cold intoleran jose de jesus. HEMATOLOGIC: Denies thrombophilia/previous clots, or coagulopathy/bleeding disorders. ONCOLOGIC: Denies personal history of malignancy. DERMATOLOGIC: Denies rashes or pruritus. PSYCHIATRIC: Denies any suicidal or homicidal ideation. Denies hallucinations. PHYSICAL EXAM GENERAL APPEARANCE: The patient is sedated, intubated NEUROLOGICAL: Cranial nerves II-XII grossly intact. Motor is 5/5 in bilateral upper and lower extremities proximal to distal. No sensory deficits. HEENT: Face is symmetric. Pupils are equal and reactive. Extraocular movements are intact. NECK: Supple. No JVD. No thyromegaly. No submental, submandibular, pre- /postauricular, occipital or supraclavicular lymphadenopathy. CHEST: Normal chest expansion. No Telemetry. LUNGS: Absence of any rales, rhonchi or any wheezing. CARDIOVASCULAR: Regular. S1 and S2 normal. No appreciable rubs, murmurs or gallops. ABDOMEN: Soft, nontender, and nondistended. There is no rebound, voluntary guarding, or rigidity. : Deferred. No Hearn. EXTREMITIES: No clubbing. Bilateral lower extremity edema Good capillary refill. SKIN: Sacral ulcer, No skin breakdown. Vital Signs (last 8hr) Date Time Temp Pulse Resp B/P (MAP) Pulse Ox O2 Delivery O2 Flow Rate FiO2 06/29/24 11:15 67 18 100 30 141/71 (94) 06/29/24 11:00 67 18 100 142/72 (95) 06/29/24 10:45 68 18 100 141/73 (95) 06/29/24 10:35 30 06/29/24 10:30 68 18 100 143/73 (96) 06/29/24 10:15 69 18 100 139/72 (94) 06/29/24 10:00 70 18 100 140/72 (94) 06/29/24 09:48 78 30 06/29/24 09:45 69 18 100 139/72 (94) 06/29/24 09:30 70 18 100 139/72 (94) 06/29/24 09:15 69 18 100 138/71 (93) 06/29/24 09:00 72 18 100 142/73 (96) 06/29/24 08:45 71 18 100 141/72 (95) 06/29/24 08:30 73 18 100 145/75 (98) 06/29/24 08:15 78 18 100 147/76 (99) 06/29/24 08:00 99.9 Ventilator 30 06/29/24 08:00 77 18 100 149/74 (99) 06/29/24 07:45 74 18 149/80 (103) 100 139/71 (93) 06/29/24 07:30 71 18 100 137/68 (91) 06/29/24 07:15 72 18 100 140/69 (92) 06/29/24 07:00 73 18 100 140/69 (92) 06/29/24 06:35 30 06/29/24 06:30 76 18 100 144/71 (95) 06/29/24 06:22 76 30 06/29/24 06:15 75 18 100 147/72 (97) 06/29/24 06:00 73 18 100 139/68 (91) 06/29/24 05:45 78 18 151/82 (105) 100 145/72 (96) 06/29/24 05:30 75 18 100 142/70 (94) 06/29/24 05:15 76 18 100 144/71 (95) 06/29/24 05:00 83 18 100 148/73 (98) 06/29/24 04:45 80 18 155/87 (109) 100 151/75 (100) 06/29/24 04:30 75 19 100 150/73 (98) 06/29/24 04:15 75 23 99 160/82 (108) LABS: Laboratory: Test 06/29/24 04:36 06/28/24 11:29 06/28/24 07:42 Range/Units White Blood Count 9.7 4.8-10.8 K/uL Red Blood Count 3.77 L 4.00-5.50 MIL/uL Hemoglobin 11.1 L 12.0-16.0 g/dL Hematocrit 31.3 L 36-48 % Mean Corpuscular Volume 83.0 79-99 fL Mean Corpuscular Hemoglobin 29.4 27.0-33.0 pg Mean Corpuscular Hemoglobin Concent 35.5 32.0-36.0 g/dL Red Cell Distribution Width 15.5 11.0-15.5 % Platelet Count 131 130-400 K/uL Mean Platelet Volume 10.3 7.5-10.5 fL Immature Granulocyte % (Auto) 3.0 H 0-1 % Neutrophils (%) (Auto) 86.4 H 40.0-77.0 % Lymphocytes (%) (Auto) 6.9 L 21.0-51.0 % Monocytes (%) (Auto) 2.8 L 3.0-13.0 % Eosinophils (%) (Auto) 0.3 0.0-8.0 % Basophils (%) (Auto) 0.6 0.0-5.0 % Neutrophils # (Auto) 8.4 H 1.8-7.7 K/uL Lymphocytes # (Auto) 0.7 L 1.0-4.8 K/uL Monocytes # (Auto) 0.3 0.1-1.0 K/uL Eosinophils # (Auto) 0.03 0.00-0.70 K/uL Basophils # (Auto) 0.06 0.00-0.20 K/uL Absolute Immature Granulocyte (auto 0.29 0-1 K/uL Nucleated Red Blood Cells 0.2 H 0.0-0.19 % Prothrombin Time 13.9 H 9.6-11.6 SEC Prothromb Time International Ratio 1.35 H 0.85-1.15 Activated Partial Thromboplast Time 35.0 26.3-35.5 SEC Fibrinogen 486 H 180-350 mg/dL Sodium Level 130 L 136-145 mmol/L Potassium Level 3.6 3.5-5.1 mmol/L Chloride Level 96 L 101-111 mmol/L Carbon Dioxide Level 27 21-32 mmol/L Blood Urea Nitrogen 45 H 7-18 mg/dL Creatinine 1.3 H 0.5-1.0 mg/dL Glomerular Filtration Rate Calc 43 >90 mL/min Random Glucose 146 #H 70-105 mg/dL Total Calcium 7.4 L 8.5-10.1 mg/dL Magnesium Level 1.90 1.80-2.40 mg/dL Total Bilirubin 0.8 0.2-1.0 mg/dL Aspartate Amino Transf (AST/SGOT) 17 10-37 U/L Alanine Aminotransferase (ALT/SGPT) 12 12-78 U/L Alkaline Phosphatase 234 H 50-136 U/L B-Type Natriuretic Peptide 1430 H 0-100 pg/mL Total Protein 3.9 L 6.0-8.3 g/dL Albumin 1.4 L 3.5-5.0 g/dL Whole Blood Glucose 105 70-110 MG/DL Blood Gas Specimen Type Arterial Arterial Blood pH 7.506 H 7.350-7.450 Arterial Blood Partial Pressure CO2 33 32-45 mmHg Arterial Blood Partial Pressure O2 70.0 L 83.0-108.0 mmHg Arterial Blood HCO3 25.7 21.0-28.0 mmol/L Arterial Blood Oxygen Saturation 95.5 94.0-98.0 % Arterial Blood Base Excess 3.1 H -2.0-3.0 mmol/L Blood Gas Temperature 37.0 35.5-37.0 CELSIUS Blood Gas Respiration Rate 18.0 min. Blood Gas Vent Mode AC ROOM AIR FiO2 30.0 % Blood Gas Tidal Volume 450 ml Blood Gas PEEP 5 cm H2O Blood Gas Specimen Comment ALINEARACELY Current Medications Medications (Trade) Dose Ordered Sig/Dionisio Route PRN Reason Start Time Stop Time Status Last Admin Dose Admin Acetaminophen (TYLenol 325MG TAB) 650 mg Q4H PRN PO TEMPERATURE GREATER THAN 101.5 06/23/24 03:30 07/23/24 03:29 Acetaminophen (TYLenol 650MG SUPPOSITORY) 650 mg Q6H PRN RC MILD PAIN (1-3) 06/22/24 20:30 07/22/24 20:29 Albumin Human 50 ml @ 0 mls/hr AD IV 06/26/24 17:30 06/26/24 17:32 DC Albumin Human 100 ml @ 0 mls/hr Q6H6 IV 06/23/24 00:00 06/23/24 12:52 DC Albumin Human 250 ml @ 400 mls/hr AD IV 06/26/24 17:30 06/27/24 18:03 DC 06/26/24 17:36 400 MLS/HR Albumin Human 250 ml @ 0 mls/hr AD IV 06/23/24 11:30 06/24/24 11:29 DC 06/24/24 13:26 400 MLS/HR Albumin Human 250 ml @ 0 mls/hr AD IV 06/24/24 12:00 06/24/24 13:21 DC Aminocaproic Acid 64261 mg/Sodium Chloride 500 ml @ 0 mls/hr AD IV 06/27/24 19:30 06/27/24 18:37 DC Artificial Tears (Artificial Tears) 1 DROP BID OU 06/24/24 21:00 07/24/24 20:59 06/29/24 09:06 1 DROP Calcium Gluconate 1 gm/Sodium Chloride 100 ml @ 0 mls/hr PROTOCOL IV 06/29/24 08:30 07/29/24 08:29 Calcium Gluconate 1 gm/Sodium Chloride 100 ml @ 0 mls/hr PROTOCOL IV 06/26/24 16:00 06/29/24 08:10 DC 06/26/24 16:57 400 MLS/HR Calcium Gluconate 2 gm/Sodium Chloride 120 ml @ 120 mls/hr PROTOCOL PRN IV WHEN 2G DOSE IS NEEDED 06/28/24 00:30 07/28/24 00:29 06/28/24 01:06 120 MLS/HR Cefepime HCl (MAXipime 2 gm vial) 2 gm Q12H IVPB 06/22/24 21:00 06/23/24 03:25 DC 06/22/24 22:03 2 GM Cefepime HCl (MAXipime 2 gm vial) 2 gm Q24H IVPB 06/23/24 21:00 06/23/24 21:47 DC 06/23/24 21:15 2 GM Ceftazidime (ForTAZ/TAZidime) 1 gm Q24H IVPB 06/24/24 01:30 07/04/24 01:29 06/29/24 00:46 1 GM Enoxaparin Sodium (Lovenox) 30 mg DAILY SQ 06/23/24 09:00 07/23/24 08:59 06/25/24 07:35 30 MG Fat Emulsion Intravenous 250 ml @ 42 mls/hr DAILY10 IV 06/24/24 10:00 06/24/24 13:22 DC 06/24/24 10:07 42 MLS/HR Fat Emulsion Intravenous 250 ml @ 42 mls/hr MoWeFr IV 06/29/24 20:18 07/29/24 20:17 Cancel Fat Emulsion Intravenous 250 ml @ 42 mls/hr QMOWEFR@1000 IV 06/26/24 10:00 07/24/24 09:59 06/29/24 10:50 42 MLS/HR Fentanyl Citrate 100 ml @ 2.5 mls/hr PROTOCOL IV 06/23/24 09:00 06/26/24 20:27 DC 06/26/24 17:13 2.5 MLS/HR Fentanyl Citrate 2500 mcg/Sodium Chloride 250 ml @ 0 mls/hr AD PRN IV TITRATE 06/26/24 20:30 06/26/24 20:41 DC Fentanyl/Sodium Chloride 250 ml @ 0 mls/hr PROTOCOL IV 06/26/24 21:00 07/01/24 20:59 06/29/24 06:40 28.5 MLS/HR Fluconazole/ Sodium Chloride (DiFLUCan 200 MG/ NS 100 ML) 200 mg Q24H IVPB 06/23/24 03:30 07/23/24 03:29 06/29/24 03:03 200 MG Furosemide (LASix 20MG VIAL) 20 mg ONCE STAT IV 06/25/24 15:49 06/25/24 15:50 DC 06/25/24 16:11 20 MG Furosemide (LASix 20MG VIAL) 20 mg Q8H IV 06/25/24 17:30 06/27/24 17:29 DC 06/27/24 10:01 20 MG Furosemide (LASix 20MG VIAL) 20 mg Q8H IV 06/28/24 20:00 06/29/24 10:14 DC 06/29/24 03:04 20 MG Furosemide 100 mg/ Sodium Chloride 100 ml @ 0 mls/hr PROTOCOL IV 06/29/24 10:30 07/29/24 10:29 06/29/24 10:30 10 MLS/HR Furosemide 100 mg/ Sodium Chloride 100 ml @ 0 mls/hr PROTOCOL IV 06/23/24 12:00 06/23/24 12:44 DC 06/23/24 11:37 5 MLS/HR Heparin Sodium (Porcine) (HEParin 5,000 UNIT VIAL) 5,000 unit BID SQ 06/22/24 21:00 06/22/24 20:48 DC Hydrocortisone Sodium Succinate (Solu-corTEF 100MG) 25 mg Q12H IV 06/26/24 14:00 07/23/24 08:59 06/29/24 01:06 25 MG Hydrocortisone Sodium Succinate (Solu-corTEF 100MG) 50 mg Q6H6 IV 06/23/24 09:00 06/26/24 13:48 DC 06/26/24 05:33 50 MG Hydromorphone HCl (DiLAUDid 1MG INJ) 1 mg Q3H3 PRN IVP SEVERE PAIN (7-10) 06/23/24 03:30 06/28/24 03:29 DC Insulin Human Regular (humuLIN R 100 UNIT/ML 3ML) INSULIN SLIDING SCAL... ACHS SQ 06/22/24 21:00 06/24/24 15:37 DC 06/24/24 10:09 6 UNIT Insulin Human Regular (humuLIN R 100 UNIT/ML 3ML) INSULIN SLIDING SCAL... Q6H6 SQ 06/24/24 18:00 06/25/24 06:25 DC 06/24/24 23:32 7 UNIT Insulin Human Regular 100 unit/ Sodium Chloride 100 ml @ 0 mls/hr AD IV 06/25/24 06:30 07/02/24 06:29 06/28/24 01:08 3 MLS/HR Ketorolac Tromethamine (toRADol) 15 mg Q6H PRN IV MODERATE PAIN (4-6) 06/23/24 03:30 06/27/24 18:23 DC Lactated Ringer's 1,000 ml @ 40 mls/hr Q24H IV 06/26/24 20:30 07/26/24 20:29 06/28/24 17:42 40 MLS/HR Lactated Ringer's 1,000 ml @ 125 mls/hr Q8H IV 06/22/24 20:30 06/23/24 12:44 DC 06/23/24 11:23 125 MLS/HR Lactated Ringer's (Lactated Ringers 1000ml) 500 ml BOLUS IV 06/23/24 05:30 06/24/24 13:22 DC Linezolid 300 ml @ 150 mls/hr Q12H IV 06/23/24 15:00 06/26/24 10:34 DC 06/26/24 03:27 150 MLS/HR Magnesium Sulfate 50 ml @ 0 mls/hr PROTOCOL IV 06/23/24 04:30 07/23/24 04:29 06/27/24 06:31 25 MLS/HR Magnesium Sulfate (Magnesium 4gm Premix 100ml) 4 gm AD IV 06/23/24 05:30 06/23/24 05:59 DC Metoprolol Tartrate (loprESSOR) 5 mg ONCE IV 06/26/24 17:00 06/26/24 21:30 DC 06/26/24 17:28 5 MG Metronidazole/ Sodium Chloride 100 ml @ 100 mls/hr Q8H6 IVPB 06/23/24 14:00 07/03/24 13:59 06/29/24 05:19 100 MLS/HR Midazolam HCl 100 ml @ 0 mls/hr AD PRN IV TITRATE 06/23/24 22:00 07/23/24 21:59 06/29/24 02:35 6 MLS/HR Morphine Sulfate (morPHINE 2MG SYG) 2 mg Q4H PRN IVP SEVERE PAIN (7-10) 06/22/24 20:30 06/23/24 03:21 DC Multivitamins/ Minerals 10 ml/ Amino Acids/ Electrolytes/ Dextrose 2,000 ml @ 83 mls/hr AD IV 06/26/24 20:30 06/27/24 18:02 DC 06/26/24 21:58 83 MLS/HR Norepinephrine 250 ml @ 0 mls/hr PROTOCOL IV 06/22/24 19:30 06/23/24 03:51 DC 06/22/24 20:15 45 MLS/HR Norepinephrine Bitartrate 32 mg/ Sodium Chloride 250 ml @ 0 mls/hr Q0M STAT IV 06/23/24 03:47 06/23/24 03:52 DC 06/23/24 07:22 32.8 MLS/HR Ondansetron HCl (zoFRAN 4MG INJ) 4 mg Q6H PRN IV NAUSEA/VOMITING 06/22/24 20:30 07/22/24 20:29 Ondansetron HCl (zoFRAN 4MG INJ) 4 mg Q6H PRN IVP NAUSEA/VOMITING 06/23/24 03:30 06/23/24 03:18 DC Pantoprazole Sodium (PROTonix 40MG INJ) 40 mg BID IVP 06/23/24 09:00 07/23/24 08:59 06/29/24 09:05 40 MG Pantoprazole Sodium (PROTonix 40MG INJ) 40 mg DAILY IV 06/23/24 09:00 06/23/24 03:19 DC Pharmacy Profile Note (Lace Assessment) 1 each AD MISC 06/24/24 14:00 06/24/24 13:53 DC Pharmacy Profile Note (Pharmacy Communication) 1 each ONCE MISC 06/23/24 14:00 06/23/24 13:46 DC Pharmacy Profile Note (Pharmacy Communication) 1 each ONCE MISC 06/27/24 19:00 06/27/24 18:50 DC Pharmacy Profile Note (Pharmacy Communication) 1 each ONCE STAT MISC 06/25/24 17:11 06/26/24 15:42 DC Phenylephrine HCl 100 mg/Sodium Chloride 250 ml @ 0 mls/hr PROTOCOL IV 06/23/24 08:30 07/23/24 08:29 06/23/24 13:00 32.67 MLS/HR Piperacillin Sod/ Tazobactam Sod (Zosyn 3.375gm+NS 50ml) 3.375 gm Q8H IVPB 06/23/24 03:30 06/23/24 04:34 DC Potassium Chloride 100 ml @ 50 mls/hr AD PRN IV POTASSIUM PROTOCOL 06/23/24 05:30 07/23/24 05:29 06/29/24 06:38 50 MLS/HR Propofol (DIPRivan 1000MG/ 100ML) 1,000 mg PROTOCOL PRN IV SEDATION 06/23/24 03:30 07/23/24 03:29 06/23/24 04:06 1,000 MG Sodium Bicarbonate 150 meq/Dextrose 1,150 ml @ 50 mls/hr Q23H IV 06/26/24 23:00 06/26/24 22:55 DC Sodium Bicarbonate 150 meq/Dextrose 1,150 ml @ 50 mls/hr Q23H IVP 06/23/24 13:00 06/25/24 17:25 DC 06/24/24 19:34 50 MLS/HR Sodium Bicarbonate 150 meq/Dextrose 1,150 ml @ 50 mls/hr Q23H IVP 06/26/24 23:00 06/27/24 17:57 DC 06/27/24 00:56 50 MLS/HR Sodium Bicarbonate 150 meq/Sodium Chloride 1,150 ml @ 50 mls/hr Q23H IVP 06/25/24 17:30 06/25/24 17:52 DC 06/25/24 17:42 50 MLS/HR Sodium Bicarbonate 150 meq/Sterile Water 1,150 ml @ 50 mls/hr Q23H IVP 06/25/24 18:00 06/26/24 14:36 DC 06/25/24 18:18 50 MLS/HR Sodium Chloride 1,000 ml @ 0 mls/hr Q0M IV 06/23/24 12:00 07/23/24 11:59 06/23/24 15:43 1,000 MLS/HR Sodium Chloride (NS 50ml) 50 ml AD IV 06/23/24 03:30 06/23/24 03:26 DC Vasopressin 20 units/Sodium Chloride 100 ml @ 0 mls/hr PROTOCOL IV 06/22/24 20:30 07/22/24 20:29 06/24/24 08:43 6 MLS/HR DIAGNOSTICS / RADIOLOGY: PROCEDURE: CXR1VW - CHEST 1VW Exam Type: CHEST 1VW Clinical Information: PNA Comparison: June 28, 2024 Findings: Pulmonary pattern is as before. No worrisome interval changes have taken place. Impression: Stable exam. ASSESSMENT: Septic shock, POA Acute hypoxic Respiratory failure POA [culture resulted in E coli] Acute encephalopathy, in the setting of severe sepsis POA Acute bowel perforation, with subsequent peritonitis s/p exploratory laparotomy 06/23/2024, repeat exploratory laparotomy on 06/26/2024 with small bowel anastomosis, right colon and transverse colon resection, colostomy creation, ileostomy tube placement and wound VAC placement. Urinary tract infection, POA, E coli Acute kidney injury, POA, improving Lactic acidosis, POA, improving Chronic debility, POA DM type 2, POA GERD, POA History small-bowel obstruction History of fibromyalgia Hypertension, now hypotensive in the setting of septic shock Sacral ulcer, POA PLAN: Suspected septic shock, POA Continue IV antibiotic ceftazidime , metronidazole, fluconazole as per ID recommendations Continue IV fluids LR Q 24 H Acute hypoxic Respiratory failure POA Intubated [PEEP 5, TV 450 respiratory rate 18]and sedated [ on fentanyl and midazolam] Continue ICU care Complete bedrest and Intubation watch Monitor O2 levels and keep saturation above 92% Continue hydrocortisone 25 mg q.12h Sputum Culture resulted in E coli Acute bowel perforation, with subsequent peritonitis Underwent exploratory laparotomy on 06/23/2024 by Repeat exploratory laparotomy on 06/26/2024 with small bowel anastomosis, right colon and transverse colon resection, colostomy creation, ileostomy tube placement and wound VAC placement. Abdominal cultures resulted in E coli and Bacteroides uniformis Scheduled for wound closure tomorrow by surgery consult. Acute metabolic encephalopathy, in the setting of severe sepsis POA Continue IV fluids and antibiotics Monitor lactic acid, electrolyte levels Replace electrolytes as per the protocol, if needed Urinary tract infection, POA, Gram-negative rods Urine culture resulted in E coli Continue IV antibiotics as per ID recommendation Acute kidney injury, POA BUN 45, creatinine 1.3 Continue IV fluids I&Os Daily weights Avoid NSAIDS, Nephrotoxic drugs and contrast Adjust the medication dose to renal dosing DM type 2, POA, GERD, POA Continue Insulin sliding scale Continue Protonix IV Glucometer checks Hypotension, in view of septic shock Resolved Blood pressure is ranging in 140/70s Currently not on any vasopressors Sacral ulcer, POA Follow up on wound care consult recommendations Follow up on Heme-Onc consult recommendations secondary to Low platelets status post transfusion and Elevated PTT. ATTESTATION BY PHYSICIAN I have seen and examined the patient. I reviewed the documentation, medical decision making, and treatment plan as noted by the resident above. I agree with the findings and plan of care. Catarino Cornejo MD, PRIYANKA MD Jun 29, 2024 12:34
--- NOTE | 2024-06-29 13:50 | NUR ---
SPEECH TRIGGER COMPLETED (INTUBATION) Pt IS A 73 Y.O. FEMALE ADMITTED SECONDARY TO SEPTIC SHOCK AND HYPOTENSION. Pt HAS A PAST MEDICAL HISTORY SIGNIFICANT FOR HYPERTENSION, HYPOTHYROIDISM, DM TYPE 2, CHRONIC LEFT HIP PAIN, ANEMIA, CERVICAL CA, AND FIBROMYALGIA. Pt CURRENTLY INTUBATED AND ON NPO. PLEASE REQUEST SPEECH THERAPY SERVICES FOR SKILLED BEDSIDE SWALLOW EVALUATION 24 HOURS POST EXTUBATION IF ANY S/S OF ASPIRATION ARISE WITH ORAL INTAKE. RN NEW GRAD COORDINATED WITH NURSE CHAMBERLAIN. ALL QUESTIONS ANSWERED AT THIS TIME. Addendum: 06/29/[address] [facility] Amended: Links added.
--- NOTE | 2024-06-29 14:06 | CONS ---
CONSULT NOTE: The patient is a 73-year-old female with history of diabetes mellitus, osteoarthritis, and hypertension, who presented to the Emergency Room, with abdominal pain. It has been going on for 2-3 days. The patient also complained of fever, chills, nausea and vomiting. The patient in the ER was found with low blood pressure. CT of the abdomen was done, which shows large amount of free intraperitoneal air. General Surgery was consulted and the patient was taken for exploratory laparotomy, which revealed pneumoperitoneum with intestinal perforation. Bowel resection was done. The patient was admitted to ICU. Patient is intubated sedated. The patient is on multiple vasopressors, has been started on antibiotic. No family at the bedside. Patient is DNR. I was consulted because there is suspicious for DIC. Patient received multiple platelet transfusion. There is no obvious bleeding. PAST MEDICAL HISTORY: * Osteoarthritis. * Hypertension. * Hypothyroidism. * Diabetes mellitus. * Obesity. * Fibromyalgia. * Left hip prosthetic dislocation. PAST SURGICAL HISTORY: * Hysterectomy. * Bilateral total hip arthroplasty. * Multiple left hip revision arthroplasty. ALLERGIES: * PENICILLIN, but tolerating carbapenem and cephalosporin. * VANCOMYCIN. * LYRICA. CURRENT MEDICATIONS: Reviewed. SOCIAL HISTORY: . No alcohol, tobacco or illicit drug use. FAMILY HISTORY: Positive for diabetes mellitus. REVIEW OF SYSTEMS: The patient is intubated and sedated. Available history obtained from medical record. PHYSICAL EXAMINATION: GENERAL: Elderly female, intubated, sedated, ill looking. VITAL SIGNS: Temperature 94.6, pulse 146, respiratory rate 19, BP 136/88. EYES: No icterus. Pupils equal and reactive. HENT: Orally intubated, ventilatory support. NG tube in place. NECK: Supple, no JVD or thyromegaly. LUNGS: Good air entry. No rales, no rhonchi. CARDIOVASCULAR: S1, S2 regular, tachycardic. No murmur heard. ABDOMEN: Open abdominal surgical incision, which is sealed with wound vacuum. CENTRAL NERVOUS SYSTEM: The patient is sedated. No withdrawal to tactile stimuli. SKIN: No rashes, no itchiness. MUSCULOSKELETAL: Chronic dislocation and swelling involving the left hip, no signs of infection. GENITOURINARY: Hearn catheter in place and hematuria. Assessment 1. Low platelets status post transfusion 2. Elevated PTT. 3. Respiratory failure with the patient is intubated sedated 4. Intestinal perforation status post exploratory laparotomy 5. Leukocytosis 6. Renal failure 7. Sepsis Plan 1. Peripheral blood smear showed red blood cells to be normocytic normochromic. There was no fragment cell or schistocyte. There is no teardrop cell. There is no rouleaux phenomena. There is no pelger-Huet cell. White blood cell with no blasts. Platelet was normal in morphology and count. 2. There was hypersegmented neutrophils. This patient to be started on folic acid 1 mg p.o. daily and vitamin B12 1000 mcg p.o. daily. 3. There is no fragment cell or schistocytes. This is rule DIC from my point review especially with the fibrinogen level was 486 and now 235. The number is too high for DIC usually should be below 100 or even below 150. 4. This patient with PTT prolongation. Even though there is no anticoagulation about according to nurse. We will ask for mixing study to be done. 5. This patient have multiple failure so this patient is good candidate for comfort care even though the patient is DNR LAB RESULTS 06/29/24 04:36: White Blood Count 9.7, Red Blood Count 3.77L, Hemoglobin 11.1L, Hematocrit 31.3L, Mean Corpuscular Volume 83.0, Mean Corpuscular Hemoglobin 29.4, Mean Corpuscular Hemoglobin Concent 35.5, Red Cell Distribution Width 15.5, Platelet Count 131, Mean Platelet Volume 10.3, Immature Granulocyte % (Auto) 3.0H, Neutrophils (%) (Auto) 86.4H, Lymphocytes (%) (Auto) 6.9L, Monocytes (%) (Auto) 2.8L, Eosinophils (%) (Auto) 0.3, Basophils (%) (Auto) 0.6, Neutrophils # (Auto) 8.4H, Lymphocytes # (Auto) 0.7L, Monocytes # (Auto) 0.3, Eosinophils # (Auto) 0.03, Basophils # (Auto) 0.06, Absolute Immature Granulocyte (auto 0.29, Nucleated Red Blood Cells 0.2H, Prothrombin Time 13.9H, Prothromb Time International Ratio 1.35H, Activated Partial Thromboplast Time 35.0, Fibrinogen 486H, Sodium Level 130L, Potassium Level 3.6, Chloride Level 96L, Carbon Dioxide Level 27, Blood Urea Nitrogen 45H, Creatinine 1.3H, Glomerular Filtration Rate Calc 43, Random Glucose 146#H, Total Calcium 7.4L, Magnesium Level 1.90, Total Bilirubin 0.8, Aspartate Amino Transf (AST/SGOT) 17, Alanine Aminotransferase (ALT/SGPT) 12, Alkaline Phosphatase 234H, B-Type Natriuretic Peptide 1430H, Total Protein 3.9L, Albumin 1.4L 06/28/24 11:29: Whole Blood Glucose 105 06/28/24 07:42: Blood Gas Specimen Type Arterial, Arterial Blood pH 7.506H, Arterial Blood Parti al Pressure CO2 33, Arterial Blood Partial Pressure O2 70.0L, Arterial Blood HCO3 25.7, Arterial Blood Oxygen Saturation 95.5, Arterial Blood Base Excess 3.1H, Blood Gas Temperature 37.0, Blood Gas Respiration Rate 18.0, Blood Gas Vent Mode AC, FiO2 30.0, Blood Gas Tidal Volume 450, Blood Gas PEEP 5, Blood Gas Specimen Comment ALINEARACELY Laboratory Tests Test 06/28/24 17:38 06/28/24 23:00 06/29/24 04:36 White Blood Count 9.4 K/uL (4.8-10.8) # 9.7 K/uL (4.8-10.8) Red Blood Count 3.49 MIL/uL (4.00-5.50) #L 3.77 MIL/uL (4.00-5.50) L Hemoglobin 10.2 g/dL (12.0-16.0) #L 10.3 g/dL (12.0-16.0) L 11.1 g/dL (12.0-16.0) L Hematocrit 29.2 % (36-48) #L 29.0 % (36-48) L 31.3 % (36-48) L Mean Corpuscular Volume 83.7 fL (79-99) 83.0 fL (79-99) Mean Corpuscular Hemoglobin 29.2 pg (27.0-33.0) 29.4 pg (27.0-33.0) Mean Corpuscular Hemoglobin Concent 34.9 g/dL (32.0-36.0) 35.5 g/dL (32.0-36.0) Red Cell Distribution Width 15.1 % (11.0-15.5) 15.5 % (11.0-15.5) Platelet Count 167 K/uL (130-400) # 131 K/uL (130-400) Mean Platelet Volume 10.5 fL (7.5-10.5) 10.3 fL (7.5-10.5) Nucleated Red Blood Cells 0.4 % (0.0-0.19) H 0.2 % (0.0-0.19) H Sodium Level 130 mmol/L (136-145) L 130 mmol/L (136-145) L Potassium Level 3.9 mmol/L (3.5-5.1) 3.6 mmol/L (3.5-5.1) Chloride Level 96 mmol/L (101-111) L 96 mmol/L (101-111) L Carbon Dioxide Level 30 mmol/L (21-32) 27 mmol/L (21-32) Blood Urea Nitrogen 39 mg/dL (7-18) H 45 mg/dL (7-18) H Creatinine 1.3 mg/dL (0.5-1.0) H 1.3 mg/dL (0.5-1.0) H Glomerular Filtration Rate Calc 43 mL/min (>90) 43 mL/min (>90) Random Glucose 81 mg/dL (70-105) 146 mg/dL (70-105) #H Total Calcium 7.9 mg/dL (8.5-10.1) L 7.4 mg/dL (8.5-10.1) L B-Type Natriuretic Peptide 615 pg/mL (0-100) H 1430 pg/mL (0-100) H Immature Granulocyte % (Auto) 3.0 % (0-1) H Neutrophils (%) (Auto) 86.4 % (40.0-77.0) H Lymphocytes (%) (Auto) 6.9 % (21.0-51.0) L Monocytes (%) (Auto) 2.8 % (3.0-13.0) L Eosinophils (%) (Auto) 0.3 % (0.0-8.0) Basophils (%) (Auto) 0.6 % (0.0-5.0) Neutrophils # (Auto) 8.4 K/uL (1.8-7.7) H Lymphocytes # (Auto) 0.7 K/uL (1.0-4.8) L Monocytes # (Auto) 0.3 K/uL (0.1-1.0) Eosinophils # (Auto) 0.03 K/uL (0.00-0.70) Basophils # (Auto) 0.06 K/uL (0.00-0.20) Absolute Immature Granulocyte (auto 0.29 K/uL (0-1) Prothrombin Time 13.9 SEC (9.6-11.6) H Prothromb Time International Ratio 1.35 (0.85-1.15) H Activated Partial Thromboplast Time 35.0 SEC (26.3-35.5) Fibrinogen 486 mg/dL (180-350) H Magnesium Level 1.90 mg/dL (1.80-2.40) Total Bilirubin 0.8 mg/dL (0.2-1.0) Aspartate Amino Transf (AST/SGOT) 17 U/L (10-37) Alanine Aminotransferase (ALT/SGPT) 12 U/L (12-78) Alkaline Phosphatase 234 U/L (50-136) H Total Protein 3.9 g/dL (6.0-8.3) L Albumin 1.4 g/dL (3.5-5.0) L ENE HELLER MD Jun 29, 2024 14:06
[2024-06-29 14:07] LABS: % IRON SATURATION 87.2 % (22-44)
--- NOTE | 2024-06-29 15:12 | NUR ---
Nutritional Note: Pt is currently NPO with TPN support clinimix 5/5% @83ml/hr (Provides 1420kcal, 100gm pro and 300gm dextrose) due to mech ventilation, sepsis, and multiple abdominal surgeries. NGT to suction. Pt +wound vac. Recommend: -Continue TPN consider CLinimix 5/15% via central line at a rate of 83ml/hr, Include 10ml adult MVI and 3ml trace elements. -Lipid emulsion x 3 weekly M, W, F to prevent essential fatty acid deficiency -Check folate, iron, vit b12, and Vit D levels to rule out deficiencies. Per research low vitamin D may contribute to insulin resistance + vit. D deficiency may impair wound healing. -Check fasting Lipid Panel to evaluate cholesterol levels -Adjust TPN regimen as needed based on labs, tolerance and wound healing. -Transition to enteral feeding as soon as gut function allows -Correct electrolytes -Zinc Sulfate 220mg BID, Vit C 500mg BID, and MVI -Monitor and supplement Ca if necessary, Ca 7.4, alb 1.4 - Electrolyte replacements per protocol -Monitor feeding tolerance, %, wt, and labs -Nephrovite MVI combination of B vitamins may be used to treat or prevent vitamin deficiency due to poor diet. -If No BM >3days consider bowel stimulant. - Notify RD if additional nutrition concerns arise. SEE RD Nutritional Assessment for additional assessment information. Addendum: 06/29/24 at [address] Amended: Links added.
--- NOTE | 2024-06-29 17:11 | PN ---
INFECTIOUS DISEASE PROGRESS NOTE Date of Service: Jun 29, 2024 SUBJECTIVE: This is a 73-year-old female patient who was seen and examined at bedside in the ICU room 218. Patient continues mechanical ventilated with a FiO2 of 30%. Patient is status post exploratory laparotomy on 06/22/2024 and right transverse colon resection with anastomosis and wound VAC placement as well as right colostomy and left u rostomy on 06/26/2024. WBC is 9.7 and patient had a low grade fever of 99.9 this morning. Patient with generalized edema and is currently on furosemide drip. Patient continues on ceftazidime, metronidazole and fluconazole. The wound VAC was changed by nursing today. We will continue to follow patient's care. PHYSICAL EXAM EYES: Anicteric. Pupils equal and reactive. HENT: No oral thrush seen, moist Oral mucosa. NECK: Supple, no JVD or thyromegaly. LUNGS: Good air entry. No rales, no rhonchi. Mechanical ventilation. CARDIOVASCULAR: S1, S2 regular. No murmur heard. ABDOMEN: Soft, non tender, bowel sounds present, no organomegaly. Open surgical incision with a wound VAC. Right colostomy. Left Urostomy. CENTRAL NERVOUS SYSTEM: Intubated and sedated. SKIN: No rashes, no swelling. LYMPHATICS: No peripheral lymphadenopathy. MUSCULOSKELETAL: No joint swelling, erythema or tenderness. EXTREMITIES: No cyanosis or clubbing. BACK: No deformity, no pressure ulcer. GENITOURINARY: No dysuria or hematuria. Hearn catheter. Vital Sign (Last 12 Hours) 06/29/24 06/29/24 06/29/24 06/29/24 05:15 05:30 05:45 06:00 Pulse 76 75 78 73 Resp 18 18 18 18 B/P (MAP) 151/82 (105) 144/71 (95) 142/70 (94) 145/72 (96) 139/68 (91) Pulse Ox 100 100 100 100 06/29/24 06/29/24 06/29/24 06/29/24 06:15 06:22 06:30 06:35 Pulse 75 76 76 Resp 18 18 B/P (MAP) 147/72 (97) 144/71 (95) Pulse Ox 100 100 FiO2 30 30 06/29/24 06/29/24 06/29/24 06/29/24 07:00 07:15 07:30 07:45 Pulse 73 72 71 74 Resp 18 18 18 18 B/P (MAP) 149/80 (103) 140/69 (92) 140/69 (92) 137/68 (91) 139/71 (93) Pulse Ox 100 100 100 100 06/29/24 06/29/24 06/29/24 06/29/24 08:00 08:00 08:15 08:30 Temp 99.9 Pulse 77 78 73 Resp 18 18 18 B/P (MAP) 149/74 (99) 147/76 (99) 145/75 (98) Pulse Ox 100 100 100 O2 Delivery Ventilator FiO2 30 06/29/24 06/29/24 06/29/24 06/29/24 08:45 09:00 09:15 09:30 Pulse 71 72 69 70 Resp 18 18 18 18 B/P (MAP) 141/72 (95) 142/73 (96) 138/71 (93) 139/72 (94) Pulse Ox 100 100 100 100 06/29/24 06/29/24 06/29/24 06/29/24 09:45 09:48 10:00 10:15 Pulse 69 78 70 69 Resp 18 18 18 B/P (MAP) 139/72 (94) 140/72 (94) 139/72 (94) Pulse Ox 100 100 100 FiO2 30 06/29/24 06/29/24 06/29/24 06/29/24 10:30 10:35 10:45 11:00 Pulse 68 68 67 Resp 18 18 18 B/P (MAP) 143/73 (96) 141/73 (95) 142/72 (95) Pulse Ox 100 100 100 FiO2 30 06/29/24 06/29/24 06/29/24 06/29/24 11:15 11:30 11:45 12:00 Pulse 67 68 68 68 Resp 18 18 18 18 B/P (MAP) 141/71 (94) 141/71 (94) 139/70 (93) 140/71 (94) Pulse Ox 100 100 100 100 FiO2 30 06/29/24 06/29/24 06/29/24 06/29/24 12:00 12:15 12:26 12:30 Temp 99.3 Pulse 67 69 68 Resp 19 18 B/P (MAP) 139/70 (93) 137/69 (91) Pulse Ox 100 100 O2 Delivery Ventilator FiO2 30 30 06/29/24 06/29/24 06/29/24 06/29/24 12:45 13:00 13:15 13:30 Pulse 70 70 71 71 Resp 18 18 18 18 B/P (MAP) 139/70 (93) 139/70 (93) 139/71 (93) 136/69 (91) Pulse Ox 100 100 100 100 06/29/24 06/29/24 06/29/24 06/29/24 13:45 14:00 14:15 14:30 Pulse 69 69 71 70 Resp 18 19 18 19 B/P (MAP) 136/69 (91) 134/68 (90) 135/69 (91) 135/69 (91) Pulse Ox 100 100 100 100 06/29/24 06/29/24 06/29/24 06/29/24 14:35 14:45 15:08 16:00 Temp 99.1 Pulse 70 79 Resp 18 B/P (MAP) 136/69 (91) Pulse Ox 100 O2 Delivery Ventilator FiO2 30 30 30 Intake & Output (last 24hrs) 06/28/24 06/28/24 06/29/24 15:00 23:00 07:00 Intake Total 3349.0 ml 1543.0 ml 1092.5 ml Output Total 2050 ml 375 ml Balance 3349.0 ml -507.0 ml 717.5 ml LABS: Laboratory: Test 06/29/24 12:30 06/29/24 04:36 06/28/24 11:29 06/28/24 07:42 Range/Units Iron Level 109 # 50-170 mcg/dL Total Iron Binding Capacity 125 L 250-450 mcg/dL Percent Iron Saturation 87.2 H 22-44 % White Blood Count 9.7 4.8-10.8 K/uL Red Blood Count 3.77 L 4.00-5.50 MIL/uL Hemoglobin 11.1 L 12.0-16.0 g/dL Hematocrit 31.3 L 36-48 % Mean Corpuscular Volume 83.0 79-99 fL Mean Corpuscular Hemoglobin 29.4 27.0-33.0 pg Mean Corpuscular Hemoglobin Concent 35.5 32.0-36.0 g/dL Red Cell Distribution Width 15.5 11.0-15.5 % Platelet Count 131 130-400 K/uL Mean Platelet Volume 10.3 7.5-10.5 fL Immature Granulocyte % (Auto) 3.0 H 0-1 % Neutrophils (%) (Auto) 86.4 H 40.0-77.0 % Lymphocytes (%) (Auto) 6.9 L 21.0-51.0 % Monocytes (%) (Auto) 2.8 L 3.0-13.0 % Eosinophils (%) (Auto) 0.3 0.0-8.0 % Basophils (%) (Auto) 0.6 0.0-5.0 % Neutrophils # (Auto) 8.4 H 1.8-7.7 K/uL Lymphocytes # (Auto) 0.7 L 1.0-4.8 K/uL Monocytes # (Auto) 0.3 0.1-1.0 K/uL Eosinophils # (Auto) 0.03 0.00-0.70 K/uL Basophils # (Auto) 0.06 0.00-0.20 K/uL Absolute Immature Granulocyte (auto 0.29 0-1 K/uL Nucleated Red Blood Cells 0.2 H 0.0-0.19 % Prothrombin Time 13.9 H 9.6-11.6 SEC Prothromb Time International Ratio 1.35 H 0.85-1.15 Activated Partial Thromboplast Time 35.0 26.3-35.5 SEC Fibrinogen 486 H 180-350 mg/dL Sodium Level 130 L 136-145 mmol/L Potassium Level 3.6 3.5-5.1 mmol/L Chloride Level 96 L 101-111 mmol/L Carbon Dioxide Level 27 21-32 mmol/L Blood Urea Nitrogen 45 H 7-18 mg/dL Creatinine 1.3 H 0.5-1.0 mg/dL Glomerular Filtration Rate Calc 43 >90 mL/min Random Glucose 146 #H 70-105 mg/dL Total Calcium 7.4 L 8.5-10.1 mg/dL Magnesium Level 1.90 1.80-2.40 mg/dL Total Bilirubin 0.8 0.2-1.0 mg/dL Aspartate Amino Transf (AST/SGOT) 17 10-37 U/L Alanine Aminotransferase (ALT/SGPT) 12 12-78 U/L Alkaline Phosphatase 234 H 50-136 U/L B-Type Natriuretic Peptide 1430 H 0-100 pg/mL Total Protein 3.9 L 6.0-8.3 g/dL Albumin 1.4 L 3.5-5.0 g/dL Whole Blood Glucose 105 70-110 MG/DL Blood Gas Specimen Type Arterial Arterial Blood pH 7.506 H 7.350-7.450 Arterial Blood Partial Pressure CO2 33 32-45 mmHg Arterial Blood Partial Pressure O2 70.0 L 83.0-108.0 mmHg Arterial Blood HCO3 25.7 21.0-28.0 mmol/L Arterial Blood Oxygen Saturation 95.5 94.0-98.0 % Arterial Blood Base Excess 3.1 H -2.0-3.0 mmol/L Blood Gas Temperature 37.0 35.5-37.0 CELSIUS Blood Gas Respiration Rate 18.0 min. Blood Gas Vent Mode AC ROOM AIR FiO2 30.0 % Blood Gas Tidal Volume 450 ml Blood Gas PEEP 5 cm H2O Blood Gas Specimen Comment ALINEARACELY ASSESSMENT: Nontraumatic intestinal perforation, 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 Generalized peritonitis with E coli. Septic shock. Leukocytosis, resolving. Urinary tract infection with E coli. Thrombocytopenia, requiring platelet transfusion. Postoperative anemia requiring blood transfusion. Acute on chronic renal failure, resolving. Generalized edema. PLAN: Continues on ceftazidime. Continue on fluconazole. Continue on metronidazole IV. Continue GI prophylaxis. Continue critical care support. Continue vasopressor support. Continue mechanical ventilation. Hemoglobin and hematocrit are being monitor. Avoid nephrotoxic medications. Patient is currently on furosemide drip. This case was reviewed and discussed with my supervising physician and the above assessment and plan was formulated and agreed upon. ATTESTATION BY PHYSICIAN I have seen and examined the patient. I reviewed the documentation, medical decision making, and treatment plan as noted by the mid-level provider above. I agree with the findings and plan of care. GOSIA INIGUEZ MD, MIRTA L VIDEO [employer] EDITOR Jun 29, 2024 17:11
[2024-06-29] MEDS: ALBUMIN (HUMAN) 25% 50 ML IV ONE (17:23)
[2024-06-29] MEDS ORDERED: FAT EMULSIONS 20% 250ML 250 ML IV SCH (20:18)
[2024-06-29] MEDS: INSULIN humuLIN R 100 UNIT/ML 3ML SQ SCH (21:00)
--- NOTE | 2024-06-29 21:54 | PN ---
[facility] PROGRESS NOTE Date Patient Seen: Jun 29, 2024 Time of Visit: 21:48 Supervising Physician: Dr. Castillo Consulting Physician: [facility] Specialists: [ ] Inpatient Consults: [ ] PROBLEM LIST: Acute hypoxic Respiratory failure POA Acute encephalopathy, in the setting of severe sepsis POA Acute bowel perforation with subsequent peritonitis s/p exploratory laparotomy 06/23/24 Dr. Valenzuela POA Culture + E-coli. Repeat exploratory laparotomy on 06/26/2024 with small bowel anastomosis, right colon and transverse colon resection, colostomy creation, ileostomy tube placement and wound VAC placement. Shock etiology sepsis POA Suspected intraabdominal hemorrhage Urinary tract infection, POA E-coli multisensitive Pneumonitis, culture + for E-coli Acute kidney injury, POA Lactic acidosis, POA Acute blood loss anemia Thrombocytopenia Chronic debility, POA DM type 2, POA GERD, POA History small-bowel obstruction History of fibromyalgia History of hypertension, now hypotensive in the setting of septic shock versus hemorrhagic shock INTERVAL HISTORY: 06/24/2023: At the time of my evaluation the patient was lying in bed. She was recently on exploratory laparotomy by Dr. Valenzuela and is critically ill appearing. The patient remains sedated on Diprivan, RASS score of -4. in tubated and on mechanical ventilator support for respiratory management. Patient is currently on ACVC mode with FiO2 40%, total volume of 450, peep of 5 and rate of 14 Initially, on the monitor was unable to obtain a blood pressure reading. The patient was tachycardic in the 160. Chemistry panel showed a sodium of 140, potassium of 3.9, chloride 107, CO2 of 13, BUN 22, creatinine of 1.9, blood glucose of 52, Mag one 0.50 a lactic acid of 8.6. Patient has a cumulative balance of positive 269. CBC showed a WBC of 37.4, H&H 10.1/29.6 and a platelet count of 575. Patient currently on cefepime and fluconazole for antibiotic coverage. No other complaint. 06/24/2024: At the time of my evaluation, the patient was lying in bed. She remains sedated with Versed and fentanyl, RASS scale of -5. The patient remains intubated and mechanically vented. On labs, WBC count improved from 31.5-26.7, H&H 11.2/32.4 and a platelet count of 312. Chemistry panel was notable for a BUN of 25, creatinine of 2.0 and a GFR of 26. Lactic acid is improving, today 7.0 and magnesium count of 1.80. Microbiology data showed positive E coli in urine multi sensitive. Anaerobic culture of peritoneal fluid showing no anaerobes and respiratory culture Gram stain showing Gram-negative rods. Patient is currently on antibiotic therapy with ceftazidime, linezolid and fluconazole. No other complaint. 06/25/2024: At the time of my evaluation, the patient is lying in bed. She remains sedated on mechanically vented. ABG this a.m. showed a pH of 7.436, pCO2 41, PO2 91.0, HC03 26.9, SpO2 96.4 and a base excess of 2.5 On the monitor, the patient is hemodynamically stable. Laboratory data today was notable for a significantly improved WBC count down to 11.2 from 20/6 0.7 yesterday. H&H and platelet count remains stable. Chemistry panel was notable for a BUN of 26, creatinine of 1.5 and a GFR of 37. Blood glucose this a.m. was in the 400s. This may be secondary to the dextrose diluent for the bicarb drip. The TPN for nutritional support may also be a contributing factor to the hyperglycemia. The patient remains on broad-spectrum antibiotic coverage with ceftazidime, linezolid , fluconazole and Flagyl. Lactic acid level has significantly improved, today 3.5. Chest x-ray today showed vascular congestion and bibasilar atelectasis. No other complaint. 06/26/2024: At the time of my evaluation, the patient was lying in bed. She remains on fentanyl/Versed sedation, RASS score -5. She remains endotracheally intubated and on a mechanical ventilator support. On the monitor, the patient is hemodynamically stable on Jaay-Synephrine drip on labs today, there was notati on of a improved WBC count 6.9 today, H&H 9.3/26.0 and a platelet count of 70 which necessitates a drop from 130 yesterday. On chemistry, findings were significant for low sodium of 134 and a severely low potassium of 2.9 with a chloride of 98. Renal parameters showed improving creatinine with a BUN of 28, creatinine of 1.4 and a GFR of 40. Total calcium of 6.8. Microbiology data showing E coli growth in urine, peritoneal fluid and sputum. There was also bacteroides uniformis growth in the peritoneal fluid. The patient continues on antibiotic coverage with ceftazidime, fluconazole, metronidazole and linezolid. Per the staff nurse, the plan is for surgical intervention today by Dr. Oswald. No other complaint. 06/27/2024: At the time of my evaluation, the patient was lying in bed. She remains on fentanyl/Versed sedation, RASS score -5. She remains endotracheally intubated and on a mechanical ventilator support. ABG this a.m. showed a pH of 7.46, pCO2 37, PO2 of 92.8, HC03 of 26.1 and a base excess of 2.3. On the monitor, the patient is tachycardic in the 120s and blood pressure stable systolic in the 120s currently off pressor therapy. Laboratory data today was notable for again downward trend of H&H with a hemoglobin of 7.1. Chemistry panel showed improving renal parameters. Total calcium of 6.8 when corrected for albumin is within normal range and a Mag of 1.80. Chest x-ray obtained today showed persisting pulmonary vascular congestion and bilateral infiltrates. The patient is on sodium bicarb at 50 mL/hour and is on LR at 75 cc/hour. She also remains on TPN for nutritional support. She continues on antibiotic therapy by the Infectious Disease specialist currently recommending ceftazidime, fluconazole and metronidazole. No other complaint. 06/28/2024: At the time of my evaluation, the patient was lying in bed. She remains on fentanyl/Versed sedation, RASS score -5. She remains endotracheally intubated and on a mechanical ventilator support. On the monitor, the patient is hemodynamically stable. Late afternoon yesterday, there was concern for bleeding through the oral route, two with a colostomy and into the wound VAC canister. H&H was trending down as well as platelet count for this, the patient has received multiple doses of PRBCs, plasmapheresis and also Amicar, TXA and DDAVP was infused. Today, there was slight improvement on hematology parameters. Chemistry panel was notable for a sodium of 130, potassium 4.1, chloride is 96, BUN is 37, creatinine of 1.3, calcium of 7.4, patient did re ceive calcium gluconate post PRBC transfusion. Imaging of the chest shows persisting is paced consolidation. No other complaint. 06/29/2024: At the time of my evaluation, the patient was lying in bed. She remains intubated and mechanically vented. On the monitor, the patient remains hemodynamically stable. Laboratory data was notable for a downward trending H&H of 7.4 and recovered platelet count 131, after receiving PRBCs and platelet transfusion yesterday. Chemistry panel was notable for a sodium of 130, chloride 96, BUN of 45, creatinine of 1.3 GFR of 43 and a BNP of 1430. Coagulation panel showed a PT of 13.9, INR 1.35, PTT of 35.0 and a fibrinogen of 486. She continues on antibiotic therapy as ordered by the Infectious Disease specialist. Imaging of the chest today shows vascular congestion. Per the staff nurse, there is minimal bloody output to the wound VAC and colostomy bag. Oral bleeding has subsided. No other complaint. REVIEW OF SYSTEMS: Unable to obtain due to alteration in mental status PHYSICAL EXAM: GENERAL: Sedated and intubated. HEENT: EOMI, Sclera non icteric, moist mucosa NECK: Supple, no JVD, trachea midline LUNGS: Diminished bibasilar air. No wheezes HEART: Sinus tach on the monitor. Normal S1 and S2, without murmurs ABD: Abdomen is distended and tender to palpate. Bowel sounds present EXT: No clubbing cyanosis or edema NEURO: Sedated. Vital Signs (last 8hr) Date Time Temp Pulse Resp B/P (MAP) Pulse Ox O2 Delivery O2 Flow Rate FiO2 06/29/24 20:00 97.5 06/29/24 20:00 100 Ventilator+ 30 06/29/24 18:39 79 30 06/29/24 18:35 30 06/29/24 18:30 72 18 100 154/79 (104) 06/29/24 18:15 75 18 99 152/76 (101) 06/29/24 18:00 81 18 99 153/75 (101) 06/29/24 17:45 85 18 99 148/73 (98) 06/29/24 17:30 72 18 100 160/80 (106) 06/29/24 17:15 70 18 100 148/74 (98) 06/29/24 17:00 67 18 100 141/71 (94) 06/29/24 16:45 69 19 100 140/70 (93) 06/29/24 16:30 72 19 100 141/71 (94) 06/29/24 16:15 71 18 100 30 136/68 (90) 06/29/24 16:00 99.1 Ventilator 30 06/29/24 16:00 72 18 100 133/68 (89) 06/29/24 16:00 100 Ventilator+ 30 06/29/24 15:45 72 18 100 133/67 (89) 06/29/24 15:30 74 18 100 134/67 (89) 06/29/24 15:15 76 18 100 140/70 (93) 06/29/24 15:08 79 30 06/29/24 15:00 76 18 100 146/73 (97) 06/29/24 14:45 70 18 100 136/69 (91) 06/29/24 14:35 30 06/29/24 14:30 70 19 100 135/69 (91) 06/29/24 14:15 71 18 100 135/69 (91) 06/29/24 14:00 69 19 100 134/68 (90) LABS: Hematology Labs: Test 06/29/24 04:36 Range/Units White Blood Count 9.7 4.8-10.8 K/uL Red Blood Count 3.77 L 4.00-5.50 MIL/uL Hemoglobin 11.1 L 12.0-16.0 g/dL Hematocrit 31.3 L 36-48 % Mean Corpuscular Volume 83.0 79-99 fL Mean Corpuscular Hemoglobin 29.4 27.0-33.0 pg Mean Corpuscular Hemoglobin Concent 35.5 32.0-36.0 g/dL Red Cell Distribution Width 15.5 11.0-15.5 % Platelet Count 131 130-400 K/uL Mean Platelet Volume 10.3 7.5-10.5 fL Immature Granulocyte % (Auto) 3.0 H 0-1 % Neutrophils (%) (Auto) 86.4 H 40.0-77.0 % Lymphocytes (%) (Auto) 6.9 L 21.0-51.0 % Monocytes (%) (Auto) 2.8 L 3.0-13.0 % Eosinophils (%) (Auto) 0.3 0.0-8.0 % Basophils (%) (Auto) 0.6 0.0-5.0 % Neutrophils # (Auto) 8.4 H 1.8-7.7 K/uL Lymphocytes # (Auto) 0.7 L 1.0-4.8 K/uL Monocytes # (Auto) 0.3 0.1-1.0 K/uL Eosinophils # (Auto) 0.03 0.00-0.70 K/uL Basophils # (Auto) 0.06 0.00-0.20 K/uL Absolute Immature Granulocyte (auto 0.29 0-1 K/uL Nucleated Red Blood Cells 0.2 H 0.0-0.19 % Chemistry Labs: Test 06/29/24 17:48 06/29/24 12:30 06/29/24 04:36 06/28/24 11:29 Range/Units Potassium Level 4.5 3.5-5.1 mmol/L Iron Level 109 # 50-170 mcg/dL Total Iron Binding Capacity 125 L 250-450 mcg/dL Percent Iron Saturation 87.2 H 22-44 % Sodium Level 130 L 136-145 mmol/L Chloride Level 96 L 101-111 mmol/L Carbon Dioxide Level 27 21-32 mmol/L Blood Urea Nitrogen 45 H 7-18 mg/dL Creatinine 1.3 H 0.5-1.0 mg/dL Glomerular Filtration Rate Calc 43 >90 mL/min Random Glucose 146 #H 70-105 mg/dL Total Calcium 7.4 L 8.5-10.1 mg/dL Magnesium Level 1.90 1.80-2.40 mg/dL Total Bilirubin 0.8 0.2-1.0 mg/dL Aspartate Amino Transf (AST/SGOT) 17 10-37 U/L Alanine Aminotransferase (ALT/SGPT) 12 12-78 U/L Alkaline Phosphatase 234 H 50-136 U/L B-Type Natriuretic Peptide 1430 H 0-100 pg/mL Total Protein 3.9 L 6.0-8.3 g/dL Albumin 1.4 L 3.5-5.0 g/dL Whole Blood Glucose 105 70-110 MG/DL Coagulation Labs: Test 06/29/24 04:36 Range/Units Prothrombin Time 13.9 H 9.6-11.6 SEC Prothromb Time International Ratio 1.35 H 0.85-1.15 Activated Partial Thromboplast Time 35.0 26.3-35.5 SEC Fibrinogen 486 H 180-350 mg/dL DIAGNOSTICS / RADIOLOGY RESULTS: [ ] PLAN 06/24/2023: I am going to attempts arterial for better hemodynamic monitoring, if unsuccessful we will request the assistance of anesthesia who attempted the A-line the OR this a.m. but was unsuccessful. Will order IV fluid bolus with IV LR, we will order bicarb pushes X 6 amps. then drip at 125 mL per hour, we will start the patient on hydrocortisone 50 mg IV q.6 hours we will adjust antibiotic therapy with ceftazidime, Zyvox, fluconazole. We will replace magnesium deficit. We will continue to monitor the lactic acid trend. We will any nephrotoxic agents. We will repeat labs, chest x-ray and ABG in the a.m. and once her condition is stabilized we will attempt to wean off the vent. We will monitor the patient's progress and response to management. We will continue to provide general supportive care, GI and DVT prophylaxis. Further orders per attending MD and hospital course. 06/24/2024: For now, going to continue current management for the patient. She will remain sedated and mechanically vented. We are going to continue with bicarb drip, we will decrease the rate to 50 cc/hour in efforts of avoiding fluid volume overload. The patient will continue on antibiotic course with ceftazidime, linezolid and fluconazole. We will follow the recommendation of the Infectious Disease specialist. For nutrition support, the patient remains on TPN and we will run at 83 cc/hour this with added lipids Q other day. Per the general surgeon, the plan is for repeat surgical intervention this coming for abdominal wound closure and removal of the wound VAC. We will monitor the patient's progress and response to management. We will repeat surveillance labs in the morning. We will continue to provide general supportive care, GI and DVT prophylaxis. Further orders per attending MD and hospital course. 06/25/2024: For now, going to continue current management for patient. We will continue sedation and mechanical ventilator support. We will monitor the respiratory status. The patient will continue on nutritional support with TPN. Because of the hyperglycemia, I am going to change the bicarb diluent to sterile water. We will monitor the blood glucose trend and treat accordingly. The patient will remain on broad-spectrum antibiotic therapy and we will follow the input of the Infectious Disease specialist. Per the staff nurse, the plan is for surgical intervention today with Dr. Oswald. We will repeat surveillance labs in the morning. We will monitor the patient's progress and response to man agement. We will continue to provide general supportive care, GI and DVT prophylaxis. Further orders per attending MD and hospital course. 06/26/2024: For now, going to continue current management for the patient. She will continue on mechanical ventilator support, while awaiting surgical intervention. The patient will remain on sedation as well as pressor therapy. Because of the antibiogram , the patient will continue on antibiotic regimen guided by the Infectious Disease specialist. The linezolid will likely need to be discontinued due to the low platelet count. We will replace electrolyte deficit per the protocol as necessary and follow the trend. Currently the patient is on TPN for nutritional supplementation. We will follow the recommendation of the treating specialist. We will continue to monitor the renal parameters. We will continue to provide general supportive care, GI and DVT prophylaxis. Further orders per attending MD and hospital course. 06/27/2024: For now, going to continue current management for the patient. She will continue on mechanical ventilator support. The patient will remain on sedation and we will continue to monitor off pressor therapy. The patient will continue on antibiotic regimen guided by the Infectious Disease specialist. She underwent repeat exploratory laparotomy on 06/26/2024 with small bowel anastomosis, right colon and transverse colon resection, colostomy creation, ileostomy tube placement and wound VAC placement. The patient has noticeable amount of blood in the wound VAC canister, the colostomy reservoir and orally. For this, I am going to order a coagulation panel and a hit panel. Patient might require tranexamic acid and DDAVP to eight in coagulation. We will replace electrolyte deficit per the protocol as necessary and follow the trend. I am going to stop the bicarb drip and we will continue on the IV LR. Currently the patient is on TPN for nutritional supplementation. We will follow the recommendation of the treating specialist. We will continue to monitor the renal parameters. We will continue to provide general supportive care, GI and DVT prophylaxis. Further orders per attending MD and hospital course. 1830: At approximately 1700, I was called back to the bedside due to patient bleeding from the colostomy site as well as blood in the wound VAC canister. Patient recently completed transfusion of PRBCs x2 units and hemoglobin came up to 10.5. Also, patient had a low platelet count for which I will request transfusion of platelets x4 units. We will order a dose of tranexamic acid, DDAVP and aminocaproic acid. We will continue monitoring the H and H q.4 hours. The case was discussed with attending MD Dr. Castillo and the surgeon was also notified regarding the acute change in condition. We will continue to monitor her response to management. I personally spent approximately 60 minutes of added critical care time to the previously spent during rounds in treatment of this patient, for a total of approximately 100 minutes. This includes time at bedside, time reviewing tests, labs, appropriate images and studies, documentation, and patient care coordination. This time excludes separately billable procedures. 06/28/2024: For now, we are going to continue current management for patient. We will follow the H&H and platelet count parameters. Heparin induced platelet antibody was requested and is pending. Fibrinogen level was within normal range. We will continue to monitor the trend. We will continue mechanical ventilator support. The patient may require hematology consultation going to repeat surveillance labs in the morning. The case was discussed with the general surgeon who made mentioned that if the patient's platelet counts remain stable he would plan to take the patient back to surgery tomorrow. We will continue antibiotic course guided by the Infectious Disease specialist. Currently offering ceftazidime, Flagyl and fluconazole. We will continue nutritional support via TPN. Family members were present at the bedside visiting today and were updated on the patient's current condition, they voiced understanding. We will monitor the patient's progress and response to management. We will continue to provide general supportive care, GI and DVT prophylaxis. Further orders per attending MD and hospital course. 06/29/2024: For now, we will continue current management for the patient. She will remain intubated and sedated as the general surgeon is pending to take the patient back to the operating room for abdominal wound closure. She remains with a wound VAC therapy and colostomy bag in place. Because of the downward trending platelets and H&H the bandmill operator was consulted and we will follow his recommendations for management. The patient is going to continue on antibiotic therapy per the Infectious Disease specialist , is currently on ceftazidime, fluconazole and metronidazole. Because of diffuse edema and volume overload with a elevated BNP, the patient will be started on a Lasix drip and we will monitor the urinary output. Going to repeat surveillance labs in the morning as well as chest x-ray. We will monitor the patient's progress and response to management. Appreciate the input of the treating specialist. Further orders per attending MD and hospital course. NEURO: Minimize central acting medications as possible. Fall Precautions. Well lighted room through the day and minimize interruptions through the night to prevent acute delirium. PULMONARY: Supplemental 02 as needed Titrate Fio2 to keep Spo2 > or = 90% DuoNebs and CPT as needed IS hourly while awake for pulmonary hygiene CARDIOVASCULAR: Follow hemodynamics. Titrate vasopressor to keep MAP >65 or systolic blood pressure >95mmHg DIPS: Ajay Versed and fentanyl LINES: Right upper arm PICC line Right groin A-line GI & NUTRITION: NPO Aspirations precautions Prokinetic agents and laxatives as needed KIDNEYS & ELECTROLYTES: Strict monitoring of intake and output Daily weights Avoid nephrotoxic agents Monitor electrolytes and replace as needed Goal urine output of 30mL/hr or 0.5mL/kg/hr ENDOCRINE: Maintain blood glucose between 100-180 at all times. Insulin sliding scale for blood glucose management INFECTIOUS DISEASE: Trend temperature. Clarke-culture if febrile. Micro: 06/24/2024: E coli in the urine. 06/25/2024: Peritoneal fluid positive for bacteroides uniformis and E coli. 06/25/2024: E coli of the sputum Antibiotics: Ceftazidime, Flagyl and fluconazole. HEMATOLOGY & COAGULATION: Monitor H&H. Keep Hgb > 7 Transfuse 1 unit of PRBC for Hgb < 7 Transfuse 1 pack of platelets of platelets < 20, 000 Watch for any signs and symptoms of bleeding SKIN: Pressure ulcer prevention per facility protocol Rehab: PT/OT Prophylaxis: GI: Protonix IV DVT: Bilateral SCDs Code Status: Full Resuscitation Disposition: ICU Other: I personally spent 40 minutes of critical care time in treatment of this patient. This includes patient management, time at bedside, time reviewing tests, labs, appropriate images and studies, documentation, and patient care coordination. This time excludes separately billable procedures. JOSE SPENCER NP Jun 29, 2024 21:54
[2024-06-30] VITALS (71 sets, daily range): BP systolic 107–170; BP diastolic 56–87; PULSE 57–75; RESP 18–23; TEMP 94.5–99.2; O2SAT 100
[2024-06-30] MEDS: M.V.I. IV [ADULT] 10 ML in CLINIMIX 5%AA/D15W 2000ML 2,000 ML IV ONE (03:40)
[2024-06-30 05:01] LABS: BASOPHILS # (AUTO) 0.05 K/uL (0.00-0.20); BASOPHILS % (AUTO) 0.4 % (0.0-5.0); EOSINOPHILS # (AUTO) 0.02 K/uL (0.00-0.70); EOSINOPHILS % (AUTO) 0.2 % (0.0-8.0); HEMATOCRIT 29.9 % (36-48); IMMATURE GRANULOCYTE ABSOLUTE 0.47 K/uL (0-1); LYMPHOCYTES # (AUTO) 0.6 K/uL (1.0-4.8); LYMPHOCYTES % (AUTO) 4.4 % (21.0-51.0); MEAN CORPUSCULAR HEMOGLOBIN 29.2 pg (27.0-33.0); MEAN CORPUSCULAR HGB CONC 34.4 g/dL (32.0-36.0); MEAN CORPUSCULAR VOLUME 84.7 fL (79-99); MONOCYTES # (AUTO) 0.5 K/uL (0.1-1.0); MONOCYTES % (AUTO) 3.5 % (3.0-13.0); NEUTROPHILS # (AUTO) 11.3 K/uL (1.8-7.7); NEUTROPHILS % (AUTO) 87.8 % (40.0-77.0); PLATELET COUNT (AUTO) 85 K/uL (130-400); RED BLOOD CELL COUNT(AUTO) 3.53 MIL/uL (4.00-5.50); WHITE BLOOD COUNT (AUTO) 12.8 K/uL (4.8-10.8)
[2024-06-30 05:19] LABS: ALBUMIN 1.4 g/dL (3.5-5.0); BILIRUBIN,TOTAL 0.6 mg/dL (0.2-1.0); CREATININE 1.2 mg/dL (0.5-1.0); POTASSIUM 3.6 mmol/L (3.5-5.1); TOTAL PROTEIN, SERUM 4.1 g/dL (6.0-8.3)
[2024-06-30] MEDS ORDERED: ondanSETRON 4MG INJ ONE (07:39)
[2024-06-30] MEDS ORDERED: LIDOCAINE PF 100MG/5ML (2%) SYRINGE 5ML ONE (07:39)
[2024-06-30] MEDS ORDERED: proPOFol 10 MG/ML 20ML VIAL IV ONE (07:40)
[2024-06-30] MEDS ORDERED: SUCCINYLCHOLINE CHLORIDE 20 MG/ML 10 ML VIAL ONE (07:40)
[2024-06-30] MEDS ORDERED: NEOSTIGMINE METHYLSULFATE 1MG/ML IV ONE (07:40)
[2024-06-30] MEDS ORDERED: GLYCOPYRROLATE 0.2 MG/ML 5 ML VIAL ONE (07:40)
[2024-06-30] MEDS ORDERED: dexaMETHasone SOD PHOSPHATE 10MG/ML 1ML VIAL ONE (07:40)
[2024-06-30] MEDS ORDERED: MIDAZOLAM HCL 1 MG/ML 2ML VIAL ONE (07:41)
[2024-06-30] MEDS ORDERED: rocuRONium bROMide 10MG/1ML 5ML VL ONE ×2 (07:41→09:42)
[2024-06-30] MEDS ORDERED: FENTanyl CITRate PF 50 MCG/1 ML 2ML VIAL ONE (07:41)
[2024-06-30] MEDS ORDERED: ALBUMIN (HUMAN) 5% 500 ML IV ONE (07:49)
[2024-06-30] MEDS ORDERED: ketaMINE 50MG/ML SYRINGE 50 MG/ML DISP.SYRIN ONE (07:49)
--- NOTE | 2024-06-30 09:12 | PN ---
[facility] PROGRESS NOTE Date Patient Seen: Jun 30, 2024 Time of Visit: 08:54 Supervising Physician: Dave Sol MD Consulting Physician: [facility] Outpatient Specialists: [ ] Inpatient Consults: [ ] PROBLEM LIST: Acute hypoxic Respiratory failure POA Acute encephalopathy, in the setting of severe sepsis POA Acute bowel perforation with subsequent peritonitis s/p exploratory laparotomy 06/23/24 Dr. Valenzuela POA Culture + E-coli. Repeat exploratory laparotomy on 06/26/2024 with small bowel anastomosis, right colon and transverse colon resection, colostomy creation, ileostomy tube placement and wound VAC placement. Shock etiology sepsis POA Suspected intraabdominal hemorrhage Urinary tract infection, POA E-coli multisensitive Pneumonitis, culture + for E-coli Acute kidney injury, POA Lactic acidosis, POA Acute blood loss anemia Thrombocytopenia Chronic debility, POA DM type 2, POA GERD, POA History small-bowel obstruction History of fibromyalgia History of hypertension, now hypotensive in the setting of septic shock versus hemorrhagic shock INTERVAL HISTORY: 06/29/24-patient continues on mechanical ventilation with settings of assist control volume control tidal volume of 450 respiratory rate of 18 FiO2 of 30% and PEEP of 5. Currently sedated with Versed at 10 milligrams/hour and fentanyl at 100 micrograms/hour. She is off pressors hemodynamically stable with blood pressure 150/75 heart rate in the 60s respiratory rate of 18 on the vent afebrile saturating 100%. Urine output of 1.2 L, left upper lateral abdomen ostomy drained 900 mL right lateral abdomen Eric 30 mL in the last24 hours. WBCs of 12.8 H&H is 10.3/29.9 platelet count of 85 K. decreased from yesterday. Sodium of 1chloride of 94 BUN57 creatinine 1.2 and GFR of glucose of 196 mg/dL liver enzymes mildly elevated. He was with the IV antibiotics with ceftazidime and fluconazole.Chest XR with right side pulmonary vascular congestion infiltrates and atelectasis to right upper lobes. Left side decreased vascular congestion. No pneumothorax, ET tube 3.9 cm above the amy. Plan is for patient to go back to the OR today for closure by Dr. Valenzuela. REVIEW OF SYSTEMS: Unable to obtain due to alteration in mental status PHYSICAL EXAM: GENERAL: Sedated and intubated. HEENT: EOMI, Sclera non icteric, moist mucosa NECK: Supple, no JVD, trachea midline LUNGS: Diminished bibasilar air. No wheezes HEART: Normal S1 and S2, without murmurs ABD: Abdomen is distended and tender to palpate. Bowel sounds present, Colostomy and ileostomy EXT: No clubbing cyanosis BLE edema +3 NEURO: Sedated. Vital Signs (last 8hr) Date Time Temp Pulse Resp B/P (MAP) Pulse Ox O2 Delivery O2 Flow Rate FiO2 06/30/24 07:30 61 18 150/75 (100) 100 06/30/24 07:15 59 18 148/75 (99) 100 06/30/24 07:14 60 30 06/30/24 07:00 64 18 159/81 (107) 100 06/30/24 06:45 60 19 151/78 (102) 100 06/30/24 06:30 58 18 145/75 (98) 100 06/30/24 06:15 58 18 146/75 (98) 100 06/30/24 06:00 60 18 149/75 (99) 100 06/30/24 05:45 63 18 154/77 (102) 100 06/30/24 05:30 70 19 166/87 (113) 100 06/30/24 05:15 61 18 152/78 (102) 100 06/30/24 05:00 97.0 63 18 156/80 (105) 100 06/30/24 04:00 61 18 152/79 (103) 100 06/30/24 04:00 100 Ventilator+ 30 06/30/24 04:00 30 06/30/24 03:45 60 18 151/78 (102) 100 06/30/24 03:30 63 18 153/78 (103) 100 06/30/24 03:15 67 18 159/82 (107) 100 06/30/24 03:07 66 30 06/30/24 03:00 63 18 151/78 (102) 100 06/30/24 02:45 68 18 158/82 (107) 100 06/30/24 02:30 67 18 153/78 (103) 100 06/30/24 02:15 67 18 152/77 (102) 100 06/30/24 02:00 71 18 154/78 (103) 100 06/30/24 01:45 73 19 154/78 (103) 99 06/30/24 01:30 75 18 156/78 (104) 99 06/30/24 01:15 73 18 153/77 (102) 99 06/30/24 01:00 74 19 154/77 (102) 98 LABS: Hematology Labs: Test 06/30/24 04:44 Range/Units White Blood Count 12.8 H 4.8-10.8 K/uL Red Blood Count 3.53 L 4.00-5.50 MIL/uL Hemoglobin 10.3 L 12.0-16.0 g/dL Hematocrit 29.9 L 36-48 % Mean Corpuscular Volume 84.7 79-99 fL Mean Corpuscular Hemoglobin 29.2 27.0-33.0 pg Mean Corpuscular Hemoglobin Concent 34.4 32.0-36.0 g/dL Red Cell Distribution Width 16.0 H 11.0-15.5 % Platelet Count 85 #L 130-400 K/uL Mean Platelet Volume 10.7 H 7.5-10.5 fL Immature Granulocyte % (Auto) 3.7 H 0-1 % Neutrophils (%) (Auto) 87.8 H 40.0-77.0 % Lymphocytes (%) (Auto) 4.4 L 21.0-51.0 % Monocytes (%) (Auto) 3.5 3.0-13.0 % Eosinophils (%) (Auto) 0.2 0.0-8.0 % Basophils (%) (Auto) 0.4 0.0-5.0 % Neutrophils # (Auto) 11.3 H 1.8-7.7 K/uL Lymphocytes # (Auto) 0.6 L 1.0-4.8 K/uL Monocytes # (Auto) 0.5 0.1-1.0 K/uL Eosinophils # (Auto) 0.02 0.00-0.70 K/uL Basophils # (Auto) 0.05 0.00-0.20 K/uL Absolute Immature Granulocyte (auto 0.47 0-1 K/uL Nucleated Red Blood Cells 0.0 0.0-0.19 % Chemistry Labs: Test 06/30/24 04:44 06/29/24 21:43 06/29/24 12:30 06/29/24 04:36 Range/Units Sodium Level 127 L 136-145 mmol/L Potassium Level 3.6 3.5-5.1 mmol/L Chloride Level 94 L 101-111 mmol/L Carbon Dioxide Level 28 21-32 mmol/L Blood Urea Nitrogen 57 H 7-18 mg/dL Creatinine 1.2 H 0.5-1.0 mg/dL Glomerular Filtration Rate Calc 48 >90 mL/min Random Glucose 196 H 70-105 mg/dL Total Calcium 7.5 L 8.5-10.1 mg/dL Total Bilirubin 0.6 0.2-1.0 mg/dL Aspartate Amino Transf (AST/SGOT) 14 10-37 U/L Alanine Aminotransferase (ALT/SGPT) 8 L 12-78 U/L Alkaline Phosphatase 248 H 50-136 U/L Total Protein 4.1 L 6.0-8.3 g/dL Albumin 1.4 L 3.5-5.0 g/dL Whole Blood Glucose 152 H 70-110 MG/DL Iron Level 109 # 50-170 mcg/dL Total Iron Binding Capacity 125 L 250-450 mcg/dL Percent Iron Saturation 87.2 H 22-44 % Magnesium Level 1.90 1.80-2.40 mg/dL B-Type Natriuretic Peptide 1430 H 0-100 pg/mL Coagulation Labs: Test 06/29/24 04:36 Range/Units Prothrombin Time 13.9 H 9.6-11.6 SEC Prothromb Time International Ratio 1.35 H 0.85-1.15 Activated Partial Thromboplast Time 35.0 26.3-35.5 SEC Fibrinogen 486 H 180-350 mg/dL DIAGNOSTICS / RADIOLOGY RESULTS: [ ] PLAN Plan to go back to OR for closure. NEURO: Minimize central acting medications as possible. Fall Precautions. Well lighted room through the day and minimize interruptions through the night to prevent acute delirium. PULMONARY: Supplemental 02 as needed Titrate Fio2 to keep Spo2 > or = 90% DuoNebs and CPT as needed IS hourly while awake for pulmonary hygiene Manage vent per abg ABG CARDIOVASCULAR: Follow hemodynamics. Titrate vasopressor to keep MAP >65 or systolic blood pressure >95mmHg Cardiac monitoring DIPS: Versed Fentanyl Lasix LINES: Right upper arm PICC line Right groin A-line LUE PICC Line GI & NUTRITION: NPO Aspirations precautions Prokinetic agents and laxatives as needed TPN KIDNEYS & ELECTROLYTES: Strict monitoring of intake and output Daily weights Avoid nephrotoxic agents Monitor electrolytes and replace as needed Goal urine output of 30mL/hr or 0.5mL/kg/hr ENDOCRINE: Maintain blood glucose between 100-180 at all times. Insulin sliding scale for blood glucose management INFECTIOUS DISEASE: Trend temperature. Clarke-culture if febrile. Micro: 06/24/2024: E coli in the urine. 06/25/2024: Peritoneal fluid positive for bacteroides uniformis and E coli. 06/25/2024: E coli of the sputum Antibiotics: Ceftazidime, Flagyl and fluconazole. HEMATOLOGY & COAGULATION: Monitor H&H. Keep Hgb > 7 Transfuse 1 unit of PRBC for Hgb < 7 Transfuse 1 pack of platelets of platelets < 20, 000 Watch for any signs and symptoms of bleeding SKIN: Pressure ulcer prevention per facility protocol Rehab: PT/OT Prophylaxis: GI: Protonix IV DVT: Bilateral SCDs Code Status: Full Resuscitation Disposition: ICU Other: I personally spent 40 minutes of critical care time in treatment of this patient. This includes patient management, time at bedside, time reviewing tests, labs, appropriate images and studies, documentation, and patient care coordination. This time excludes separately billable procedures. DEJAN STOREY Jun 30, 2024 09:12
[2024-06-30] MEDS ORDERED: phenylEPHRINE HCL 10 MG/ML 1ML VIAL IV ONE (09:43)
[2024-06-30] MEDS: ceFAZolin SODIUM 1 GM VIAL ONE (10:04)
--- NOTE | 2024-06-30 10:23 | HMCIMG ---
Exam Type: CHEST 1VW Clinical Information: PNA Comparison: None Findings: Pulmonary pattern is as before. No worrisome interval changes have taken place. Impression: Stable exam.
[2024-06-30 11:59] LABS: ABG BASE EXCESS 2.3 mmol/L (-2.0-3.0); ABG HCO3 25.4 mmol/L (21.0-28.0); ABG OXYGEN SATURATION 94.6 % (94.0-98.0); ABG PCO2 34 mmHg (32-45); ABG PH 7.492 (7.350-7.450); CARBON MONOXIDE 0.3 % (0.5-1.5); DEVICE COMMENT ALINE; HHb 5.4; PO2, ARTERIAL BG 72.2 mmHg (83.0-108.0)
--- NOTE | 2024-06-30 13:26 | PN ---
[facility] PROGRESS NOTE Date of Service: Jun 30, 2024 Time of Service: 13:22 SUBJECTIVE: Ms. Chandler is a 73-year-old female, with a past medical history of hypertension, hypothyroidism, DM, anemia, fibromyalgia, recurrent SpO2 is, chronic left hip pain, cervical CA presented to the ER with the complaints of sharp CBC left lower quadrant abdominal pain with nausea and vomiting since 2 days. Initial vitals blood pressure 62/50 which improved on Levophed. Initial labs WBCs 26.3, lactic acid 6.7. CT abdomen/pelvis resulted in Large amount of free abdominal air is seen concerning for bowel perforation. Surgery consult was obtained. 06/23/2024 postop patient is seen and examined at the bedside. She is sedated on Diprivan and intubated. She underwent exploratory laparotomy 06/23/24 Dr. Valenzuela for perforated small bowel and subsequent peritonitis this morning. Vitals blood pressure 104/58, heart rate 146 on Phenylephrine and vasopressin. Labs WBC 37.4, BUN 2 , creatinine 1.7, magnesium 0.90, TSH 16.6. Lactic acid improved from 7.7- 5. Urinalysis positive for leukocyte esterase. Chest x-ray revealed prominent bilateral interstitial markings. 06/24/2024 Patient is seen at the bedside. She is currently sedated on fentanyl and midazolam. Vitals blood pressure 131/72 on vasopressin. Currently intubated with VT 450, peep 5 and respiratory rate 14. Labs WBC improved from 31.5-26.7, hemoglobin 11.2, BUN 25 , creatinine 2 , lactic acid 10.3. Urine culture resulted in E coli. 06/25/2024 Patient is seen at the bedside. She remains intubated and sedated on fentanyl and midazolam. Vitals blood pressure in 110s/60s. Labs WBC improved from 26.7-11.2, hemoglobin 10.3, BUN 26, creatinine improved from 2-1.5, lactic acid improved from 4.5-3.5. Urine culture, respiratory culture and abdominal site culture resulted in E coli organism. 06/26/24 patient remains sedated and intubated. She has gone down to OR for extensive abdominal surgery 06/27/24 Patient is mechanical ventilated and remains sedated. Patient is off pressors at this time. Patient is status post exploratory laparotomy on 06/22/2024 and right transverse colon resection with anastomosis and wound VAC placement as well as right colostomy and left urostomy day # 1. Patient is afebrile this morning, temperature is 98.2 and the WBC is 6.1. Patient has received 2 units of PRBC throughout the night and this morning for hemoglobin of 6.4 and will receive 1 unit of platelets for platelet level of 34. The linezolid was discontinued yesterday. Patient continues on ceftazidime, metronidazole and fluconazole 06/28/24 patient was seen and examined she remains on mechanical ventilation and sedated. Patient was requiring multiple transfusion products including both platelets and PRBCs. DIC? Who we will consult Hematology 06/29/2024 Patient is seen at the bedside. She remains sedated on fentanyl and midazolam and intubated, NG tube in place. Her blood pressure is ranging in between 130/70s to 140/70s. She is currently not on any vasopressors. Labs hemoglobin 11.1, platelets 134 post 2 unit PRBC and 4 platelet transfusions yesterday. Sodium 130, chloride 96, BUN 45, creatinine 1.3, BNP of 1430. Urinary output is 550m L. She is currently on Lasix drip at the rate of 5 mL/hour. Plan for wound closure by surgery consult tomorrow. 06/30/2024 Patient is seen at the bedside. She remains sedated on Versed and fentanyl. Intubated with VT 450, RR 18, FiO2 30%. Blood pressure ranging in 150s/70s, not on any vasopressors. Urine output of 1.2 L, on Lasix drip. WBC increased from 9.7-12.8, hemoglobin 10.3, platelet 85, BUN 57, creatinine improved from 1.3-1.2, phosphatase 248, albumin 1.4. Patient had undergone wound closure by surgery consult today. Chest x-ray revealed stable pulmonary pattern with no worrisome interval changes. REVIEW OF SYSTEMS: Not able to get a proper history as the patient is sedated CONSTITUTIONAL: Denies fevers, chills, or night sweats. No unintentional weight loss reported. NEUROLOGICAL: Denies headache, amaurosis fugax, motor weakness, sensory deficit, vertigo/spinning sensation, gait abnormalities, or tremors. ENT: No hearing loss, otalgia, otorrhea, rhinitis, rhinorrhea, hoarseness, or sore throat. CARDIOVASCULAR: Denies any exertional angina, dyspnea on exertion, orthopnea, paroxysmal nocturnal dyspnea, palpitations, life-threatening arrhythmias, claudication. PULMONARY: Denies any shortness of breath, cough, phlegm/sputum, hemoptysis, pleuritic chest pain. SLEEP: Denies morning headaches, daytime somnolence or napping. Denies difficulty falling asleep, staying asleep, waking from sleep. Denies knowledge of snoring. GASTROINTESTINAL: Denies any type of dysphagia to either liquids or solids. Denies nausea, vomiting, pyrosis, early satiety, abdominal pain, diarrhea, constipation, or changes in stool consistency or caliber. Denies coffee-ground emesis, hematemesis, hematochezia, or melanotic stools. GENITOURINARY: Denies frequency, urgency, nocturia, hematuria or incontinence (Storage/Irritative symptoms.) Low urinary stream, straining to void, urinary intermittency or hesitancy, splitting of the voiding stream, terminal dribbling. ENDOCRINOLOGIC: Denies polyuria, polydipsia, polyphagia or heat/cold intolerances. HEMATOLOGIC: Denies thrombophilia/previous clots, or coagulopathy/bleeding diso rders. ONCOLOGIC: Denies personal history of malignancy. DERMATOLOGIC: Denies rashes or pruritus. PSYCHIATRIC: Denies any suicidal or homicidal ideation. Denies hallucinations. PHYSICAL EXAM GENERAL APPEARANCE: The patient is sedated, intubated NEUROLOGICAL: Cranial nerves II-XII grossly intact. Motor is 5/5 in bilateral upper and lower extremities proximal to distal. No sensory deficits. HEENT: Face is symmetric. Pupils are equal and reactive. Extraocular movements are intact. NECK: Supple. No JVD. No thyromegaly. No submental, submandibular, pre- /postauricular, occipital or supraclavicular lymphadenopathy. CHEST: Normal chest expansion. No Telemetry. LUNGS: Absence of any rales, rhonchi or any wheezing. CARDIOVASCULAR: Regular. S1 and S2 normal. No appreciable rubs, murmurs or gallops. ABDOMEN: Soft, nontender, and nondistended. There is no rebound, voluntary guarding, or rigidity. : Deferred. No Hearn. EXTREMITIES: No clubbing. Bilateral lower extremity edema Good capillary refill. SKIN: Sacral ulcer, No skin breakdown. Vital Signs (last 8hr) Date Time Temp Pulse Resp B/P (MAP) Pulse Ox O2 Delivery O2 Flow Rate FiO2 06/30/24 12:00 30 06/30/24 12:00 100 Ventilator+ 30 06/30/24 11:45 64 18 139/78 (98) 100 06/30/24 11:36 68 30 06/30/24 11:30 95.0 68 18 134/74 (94) 100 06/30/24 08:30 60 18 146/74 (98) 100 06/30/24 08:15 62 18 150/76 (100) 100 06/30/24 08:00 100 Ventilator+ 30 06/30/24 08:00 96.4 66 18 155/79 (104) 100 06/30/24 08:00 30 06/30/24 07:30 61 18 150/75 (100) 100 06/30/24 07:15 59 18 148/75 (99) 100 06/30/24 07:14 60 30 06/30/24 07:00 64 18 159/81 (107) 100 06/30/24 06:45 60 19 151/78 (102) 100 06/30/24 06:30 58 18 145/75 (98) 100 06/30/24 06:15 58 18 146/75 (98) 100 06/30/24 06:00 60 18 149/75 (99) 100 06/30/24 05:45 63 18 154/77 (102) 100 06/30/24 05:30 70 19 166/87 (113) 100 LABS: Laboratory: Test 06/30/24 11:57 06/30/24 04:44 06/29/24 21:43 06/29/24 12:30 Range/Units Blood Gas Specimen Type Arterial Arterial Blood pH 7.492 H 7.350-7.450 Arterial Blood Partial Pressure CO2 34 32-45 mmHg Arterial Blood Partial Pressure O2 72.2 L 83.0-108.0 mmHg Arterial Blood HCO3 25.4 21.0-28.0 mmol/L Arterial Blood Oxygen Saturation 94.6 94.0-98.0 % Arterial Blood Base Excess 2.3 -2.0-3.0 mmol/L Hemoglobin (Blood Gas) 10.4 L 12.0-16.0 g/dL Sodium (Blood Gas) 127 L 136-145 MMOL/L Bedside Potassium (Blood Gas) 3.3 L 3.4-4.5 MMOL/L Bedside Chloride (Blood Gas) 94 L 98-107 MMOL/L Bedside Glucose (Blood Gas) 117 H 65-95 MG/DL Bedside Ionized Calcium (Blood Gas) 1.00 L 1.15-1.33 MMOL/L Bedside Lactic Acid (Blood Gas) 1.22 H 0.36-0.75 MMOL/L Blood Gas Temperature 37.0 35.5-37.0 CELSIUS Blood Gas Respiration Rate 18.0 min. Blood Gas Vent Mode AC TOÑO, TRUDI ROOM AIR FiO2 30.0 % Blood Gas Tidal Volume 450 ml Blood Gas PEEP 5 cm H2O Blood Gas Specimen Comment KADE White Blood Count 12.8 H 4.8-10.8 K/uL Red Blood Count 3.53 L 4.00-5.50 MIL/uL Hemoglobin 10.3 L 12.0-16.0 g/dL Hematocrit 29.9 L 36-48 % Mean Corpuscular Volume 84.7 79-99 fL Mean Corpuscular Hemoglobin 29.2 27.0-33.0 pg Mean Corpuscular Hemoglobin Concent 34.4 32.0-36.0 g/dL Red Cell Distribution Width 16.0 H 11.0-15.5 % Platelet Count 85 #L 130-400 K/uL Mean Platelet Volume 10.7 H 7.5-10.5 fL Immature Granulocyte % (Auto) 3.7 H 0-1 % Neutrophils (%) (Auto) 87.8 H 40.0-77.0 % Lymphocytes (%) (Auto) 4.4 L 21.0-51.0 % Monocytes (%) (Auto) 3.5 3.0-13.0 % Eosinophils (%) (Auto) 0.2 0.0-8.0 % Basophils (%) (Auto) 0.4 0.0-5.0 % Neutrophils # (Auto) 11.3 H 1.8-7.7 K/uL Lymphocytes # (Auto) 0.6 L 1.0-4.8 K/uL Monocytes # (Auto) 0.5 0.1-1.0 K/uL Eosinophils # (Auto) 0.02 0.00-0.70 K/uL Basophils # (Auto) 0.05 0.00-0.20 K/uL Absolute Immature Granulocyte (auto 0.47 0-1 K/uL Nucleated Red Blood Cells 0.0 0.0-0.19 % Sodium Level 127 L 136-145 mmol/L Potassium Level 3.6 3.5-5.1 mmol/L Chloride Level 94 L 101-111 mmol/L Carbon Dioxide Level 28 21-32 mmol/L Blood Urea Nitrogen 57 H 7-18 mg/dL Creatinine 1.2 H 0.5-1.0 mg/dL Glomerular Filtration Rate Calc 48 >90 mL/min Random Glucose 196 H 70-105 mg/dL Total Calcium 7.5 L 8.5-10.1 mg/dL Total Bilirubin 0.6 0.2-1.0 mg/dL Aspartate Amino Transf (AST/SGOT) 14 10-37 U/L Alanine Aminotransferase (ALT/SGPT) 8 L 12-78 U/L Alkaline Phosphatase 248 H 50-136 U/L Total Protein 4.1 L 6.0-8.3 g/dL Albumin 1.4 L 3.5-5.0 g/dL Whole Blood Glucose 152 H 70-110 MG/DL Iron Level 109 # 50-170 mcg/dL Total Iron Binding Capacity 125 L 250-450 mcg/dL Percent Iron Saturation 87.2 H 22-44 % Test 06/29/24 04:36 Range/Units Prothrombin Time 13.9 H 9.6-11.6 SEC Prothromb Time International Ratio 1.35 H 0.85-1.15 Activated Partial Thromboplast Time 35.0 26.3-35.5 SEC Fibrinogen 486 H 180-350 mg/dL Magnesium Level 1.90 1.80-2.40 mg/dL B-Type Natriuretic Peptide 1430 H 0-100 pg/mL Current Medications Medications (Trade) Dose Ordered Sig/Dionisio Route PRN Reason Start Time Stop Time Status Last Admin Dose Admin Acetaminophen (TYLenol 325MG TAB) 650 mg Q4H PRN PO TEMPERATURE GREATER THAN 101.5 06/23/24 03:30 07/23/24 03:29 Acetaminophen (TYLenol 650MG SUPPOSITORY) 650 mg Q6H PRN RC MILD PAIN (1-3) 06/22/24 20:30 07/22/24 20:29 Albumin Human 50 ml @ 0 mls/hr AD IV 06/26/24 17:30 06/26/24 17:32 DC Albumin Human 100 ml @ 0 mls/hr Q6H6 IV 06/23/24 00:00 06/23/24 12:52 DC Albumin Human 250 ml @ 400 mls/hr AD IV 06/26/24 17:30 06/27/24 18:03 DC 06/26/24 17:36 400 MLS/HR Albumin Human 250 ml @ 0 mls/hr AD IV 06/23/24 11:30 06/24/24 11:29 DC 06/24/24 13:26 400 MLS/HR Albumin Human 250 ml @ 0 mls/hr AD IV 06/24/24 12:00 06/24/24 13:21 DC Aminocaproic Acid 02236 mg/Sodium Chloride 500 ml @ 0 mls/hr AD IV 06/27/24 19:30 06/27/24 18:37 DC Artificial Tears (Artificial Tears) 1 DROP BID OU 06/24/24 21:00 07/24/24 20:59 06/30/24 09:12 1 DROP Calcium Gluconate 1 gm/Sodium Chloride 100 ml @ 0 mls/hr PROTOCOL IV 06/29/24 08:30 07/29/24 08:29 Calcium Gluconate 1 gm/Sodium Chloride 100 ml @ 0 mls/hr PROTOCOL IV 06/26/24 16:00 06/29/24 08:10 DC 06/26/24 16:57 400 MLS/HR Calcium Gluconate 2 gm/Sodium Chloride 120 ml @ 120 mls/hr PROTOCOL PRN IV WHEN 2G DOSE IS NEEDED 06/28/24 00:30 07/28/24 00:29 06/28/24 01:06 120 MLS/HR Cefepime HCl (MAXipime 2 gm vial) 2 gm Q12H IVPB 06/22/24 21:00 06/23/24 03:25 DC 06/22/24 22:03 2 GM Cefepime HCl (MAXipime 2 gm vial) 2 gm Q24H IVPB 06/23/24 21:00 06/23/24 21:47 DC 06/23/24 21:15 2 GM Ceftazidime (ForTAZ/TAZidime) 1 gm Q24H IVPB 06/24/24 01:30 07/04/24 01:29 06/30/24 01:01 1 GM Enoxaparin Sodium (Lovenox) 30 mg DAILY SQ 06/23/24 09:00 06/30/24 09:13 DC 06/25/24 07:35 30 MG Fat Emulsion Intravenous 250 ml @ 42 mls/hr DAILY10 IV 06/24/24 10:00 06/24/24 13:22 DC 06/24/24 10:07 42 MLS/HR Fat Emulsion Intravenous 250 ml @ 42 mls/hr MoWeFr IV 06/29/24 20:18 07/29/24 20:17 Cancel Fat Emulsion Intravenous 250 ml @ 42 mls/hr QMOWEFR@1000 IV 06/26/24 10:00 07/24/24 09:59 06/29/24 10:50 42 MLS/HR Fentanyl Citrate 100 ml @ 2.5 mls/hr PROTOCOL IV 06/23/24 09:00 06/26/24 20:27 DC 06/26/24 17:13 2.5 MLS/HR Fentanyl Citrate 2500 mcg/Sodium Chloride 250 ml @ 0 mls/hr AD PRN IV TITRATE 06/26/24 20:30 06/26/24 20:41 DC Fentanyl/Sodium Chloride 250 ml @ 0 mls/hr PROTOCOL IV 06/26/24 21:00 07/01/24 20:59 06/30/24 09:06 27.5 MLS/HR Fluconazole/ Sodium Chloride (DiFLUCan 200 MG/ NS 100 ML) 200 mg Q24H IVPB 06/23/24 03:30 07/23/24 03:29 06/30/24 03:27 200 MG Furosemide (LASix 20MG VIAL) 20 mg ONCE STAT IV 06/25/24 15:49 06/25/24 15:50 DC 06/25/24 16:11 20 MG Furosemide (LASix 20MG VIAL) 20 mg Q8H IV 06/25/24 17:30 06/27/24 17:29 DC 06/27/24 10:01 20 MG Furosemide (LASix 20MG VIAL) 20 mg Q8H IV 06/28/24 20:00 06/29/24 10:14 DC 06/29/24 03:04 20 MG Furosemide 100 mg/ Sodium Chloride 100 ml @ 0 mls/hr PROTOCOL IV 06/29/24 10:30 07/29/24 10:29 06/30/24 01:30 10 MLS/HR Furosemide 100 mg/ Sodium Chloride 100 ml @ 0 mls/hr PROTOCOL IV 06/23/24 12:00 06/23/24 12:44 DC 06/23/24 11:37 5 MLS/HR Heparin Sodium (Porcine) (HEParin 5,000 UNIT VIAL) 5,000 unit BID SQ 06/22/24 21:00 06/22/24 20:48 DC Hydrocortisone Sodium Succinate (Solu-corTEF 100MG) 25 mg Q12H IV 06/26/24 14:00 07/23/24 08:59 06/30/24 01:05 25 MG Hydrocortisone Sodium Succinate (Solu-corTEF 100MG) 50 mg Q6H6 IV 06/23/24 09:00 06/26/24 13:48 DC 06/26/24 05:33 50 MG Hydromorphone HCl (DiLAUDid 1MG INJ) 1 mg Q3H3 PRN IVP SEVERE PAIN (7-10) 06/23/24 03:30 06/28/24 03:29 DC Insulin Human Regular (humuLIN R 100 UNIT/ML 3ML) INSULIN SLIDING SCAL... ACHS SQ 06/29/24 21:00 07/29/24 20:59 Insulin Human Regular (humuLIN R 100 UNIT/ML 3ML) INSULIN SLIDING SCAL... ACHS SQ 06/22/24 21:00 06/24/24 15:37 DC 06/24/24 10:09 6 UNIT Insulin Human Regular (humuLIN R 100 UNIT/ML 3ML) INSULIN SLIDING SCAL... Q6H6 SQ 06/24/24 18:00 06/25/24 06:25 DC 06/24/24 23:32 7 UNIT Insulin Human Regular 100 unit/ Sodium Chloride 100 ml @ 0 mls/hr AD IV 06/25/24 06:30 07/02/24 06:29 06/28/24 01:08 3 MLS/HR Ketorolac Tromethamine (toRADol) 15 mg Q6H PRN IV MODERATE PAIN (4-6) 06/23/24 03:30 06/27/24 18:23 DC Lactated Ringer's 1,000 ml @ 40 mls/hr Q24H IV 06/26/24 20:30 07/26/24 20:29 06/29/24 15:18 40 MLS/HR Lactated Ringer's 1,000 ml @ 125 mls/hr Q8H IV 06/22/24 20:30 06/23/24 12:44 DC 06/23/24 11:23 125 MLS/HR Lactated Ringer's (Lactated Ringers 1000ml) 500 ml BOLUS IV 06/23/24 05:30 06/24/24 13:22 DC Linezolid 300 ml @ 150 mls/hr Q12H IV 06/23/24 15:00 06/26/24 10:34 DC 06/26/24 03:27 150 MLS/HR Magnesium Sulfate 50 ml @ 0 mls/hr PROTOCOL IV 06/23/24 04:30 07/23/24 04:29 06/27/24 06:31 25 MLS/HR Magnesium Sulfate (Magnesium 4gm Premix 100ml) 4 gm AD IV 06/23/24 05:30 06/23/24 05:59 DC Metoprolol Tartrate (loprESSOR) 5 mg ONCE IV 06/26/24 17:00 06/26/24 21:30 DC 06/26/24 17:28 5 MG Metronidazole/ Sodium Chloride 100 ml @ 100 mls/hr Q8H6 IVPB 06/23/24 14:00 07/03/24 13:59 06/30/24 05:14 100 MLS/HR Midazolam HCl 100 ml @ 0 mls/hr AD PRN IV TITRATE 06/23/24 22:00 07/23/24 21:59 06/30/24 03:32 7 MLS/HR Morphine Sulfate (morPHINE 2MG SYG) 2 mg Q4H PRN IVP SEVERE PAIN (7-10) 06/22/24 20:30 06/23/24 03:21 DC Multivitamins/ Minerals 10 ml/ Amino Acids/ Electrolytes/ Dextrose 2,000 ml @ 83 mls/hr AD IV 06/26/24 20:30 06/27/24 18:02 DC 06/26/24 21:58 83 MLS/HR Norepinephrine 250 ml @ 0 mls/hr PROTOCOL IV 06/22/24 19:30 06/23/24 03:51 DC 06/22/24 20:15 45 MLS/HR Norepinephrine Bitartrate 32 mg/ Sodium Chloride 250 ml @ 0 mls/hr Q0M STAT IV 06/23/24 03:47 06/23/24 03:52 DC 06/23/24 07:22 32.8 MLS/HR Ondansetron HCl (zoFRAN 4MG INJ) 4 mg Q6H PRN IV NAUSEA/VOMITING 06/22/24 20:30 07/22/24 20:29 Ondansetron HCl (zoFRAN 4MG INJ) 4 mg Q6H PRN IVP NAUSEA/VOMITING 06/23/24 03:30 06/23/24 03:18 DC Pantoprazole Sodium (PROTonix 40MG INJ) 40 mg BID IVP 06/23/24 09:00 07/23/24 08:59 06/30/24 09:09 40 MG Pantoprazole Sodium (PROTonix 40MG INJ) 40 mg DAILY IV 06/23/24 09:00 06/23/24 03:19 DC Pharmacy Profile Note (Lace Assessment) 1 each AD MISC 06/24/24 14:00 06/24/24 13:53 DC Pharmacy Profile Note (Pharmacy Communication) 1 each ONCE MISC 06/23/24 14:00 06/23/24 13:46 DC Pharmacy Profile Note (Pharmacy Communication) 1 each ONCE MISC 06/27/24 19:00 06/27/24 18:50 DC Pharmacy Profile Note (Pharmacy Communication) 1 each ONCE STAT MISC 06/25/24 17:11 06/26/24 15:42 DC Phenylephrine HCl 100 mg/Sodium Chloride 250 ml @ 0 mls/hr PROTOCOL IV 06/23/24 08:30 07/23/24 08:29 06/23/24 13:00 32.67 MLS/HR Piperacillin Sod/ Tazobactam Sod (Zosyn 3.375gm+NS 50ml) 3.375 gm Q8H IVPB 06/23/24 03:30 06/23/24 04:34 DC Potassium Chloride 100 ml @ 50 mls/hr AD PRN IV POTASSIUM PROTOCOL 06/23/24 05:30 07/23/24 05:29 06/29/24 06:38 50 MLS/HR Propofol (DIPRivan 1000MG/ 100ML) 1,000 mg PROTOCOL PRN IV SEDATION 06/23/24 03:30 07/23/24 03:29 06/23/24 04:06 1,000 MG Sodium Bicarbonate 150 meq/Dextrose 1,150 ml @ 50 mls/hr Q23H IV 06/26/24 23:00 06/26/24 22:55 DC Sodium Bicarbonate 150 meq/Dextrose 1,150 ml @ 50 mls/hr Q23H IVP 06/23/24 13:00 06/25/24 17:25 DC 06/24/24 19:34 50 MLS/HR Sodium Bicarbonate 150 meq/Dextrose 1,150 ml @ 50 mls/hr Q23H IVP 06/26/24 23:00 06/27/24 17:57 DC 06/27/24 00:56 50 MLS/HR Sodium Bicarbonate 150 meq/Sodium Chloride 1,150 ml @ 50 mls/hr Q23H IVP 06/25/24 17:30 06/25/24 17:52 DC 06/25/24 17:42 50 MLS/HR Sodium Bicarbonate 150 meq/Sterile Water 1,150 ml @ 50 mls/hr Q23H IVP 06/25/24 18:00 06/26/24 14:36 DC 06/25/24 18:18 50 MLS/HR Sodium Chloride 1,000 ml @ 0 mls/hr Q0M IV 06/23/24 12:00 07/23/24 11:59 06/23/24 15:43 1,000 MLS/HR Sodium Chloride (NS 50ml) 50 ml AD IV 06/23/24 03:30 06/23/24 03:26 DC Vasopressin 20 units/Sodium Chloride 100 ml @ 0 mls/hr PROTOCOL IV 06/22/24 20:30 07/22/24 20:29 06/24/24 08:43 6 MLS/HR DIAGNOSTICS / RADIOLOGY: PROCEDURE: CXR1VW - CHEST 1VW Exam Type: CHEST 1VW Clinical Information: PNA Comparison: None Findings: Pulmonary pattern is as before. No worrisome interval changes have taken place. Impression: Stable exam. ASSESSMENT: Septic shock, POA Acute hypoxic Respiratory failure POA [culture resulted in E coli] Acute encephalopathy, in the setting of severe sepsis POA Acute bowel perforation, with subsequent peritonitis s/p exploratory laparotomy 06/23/2024, repeat exploratory laparotomy on 06/26/2024 with small bowel anastomosis, right colon and transverse colon resection, colostomy creation, ileostomy tube placement and wound VAC placement. Urinary tract infection, POA, E coli Acute kidney injury, POA, improving Lactic acidosis, POA, improving Chronic debility, POA DM type 2, POA GERD, POA History small-bowel obstruction History of fibromyalgia Hypertension, now hypotensive in the setting of septic shock Sacral ulcer, POA PLAN: Suspected septic shock, POA Continue IV antibiotic ceftazidime , metronidazole, fluconazole as per ID recommendations Continue IV fluids LR Q 24 H Acute hypoxic Respiratory failure POA Intubated [PEEP 5, TV 450 respiratory rate 18]and sedated [ on fentanyl and midazolam] Continue ICU care Complete bedrest and Intubation watch Monitor O2 levels and keep saturation above 92% Continue hydrocortisone 25 mg q.12h Sputum Culture resulted in E coli Acute bowel perforation, with subsequent peritonitis Underwent exploratory laparotomy on 06/23/2024 by Repeat exploratory laparotomy on 06/26/2024 with small bowel anastomosis, right colon and transverse colon resection, colostomy creation, ileostomy tube placement and wound VAC placement. Had undergone wound closure on 06/30/2024 Abdominal cultures resulted in E coli and Bacteroides uniformis Acute metabolic encephalopathy, in the setting of severe sepsis POA Continue IV fluids and antibiotics Monitor lactic acid, electrolyte levels Replace electrolytes as per the protocol, if needed Urinary tract infection, POA, Gram-negative rods Urine culture resulted in E coli Continue IV antibiotics as per ID recommendation Acute kidney injury, POA BUN 45, creatinine 1.3 Continue IV fluids I&Os Daily weights Avoid NSAIDS, Nephrotoxic drugs and contrast Adjust the medication dose to renal dosing DM type 2, POA, GERD, POA Continue Insulin sliding scale Continue Protonix IV Glucometer checks Hypotension, in view of septic shock Resolved Blood pressure is ranging in 120s/60s and 130/70s Currently not on any vasopressors Sacral ulcer, POA Follow up on wound care consult recommendations Follow up on Heme-Onc consult recommendations secondary to Low platelets status post transfusion and Elevated PTT. ATTESTATION BY PHYSICIAN I have seen and examined the patient. I reviewed the documentation, medical decision making, and treatment plan as noted by the resident above. I agree with the findings and plan of care. Catarino Cornejo MD, PRIYANKA MD Jun 30, 2024 13:26
--- NOTE | 2024-06-30 14:27 | PN ---
INFECTIOUS DISEASE PROGRESS NOTE Date of Service: Jun 30, 2024 SUBJECTIVE: This is a 73-year-old female patient who was seen and examined at bedside in the ICU room 218. Patient is on mechanical ventilation. Patient is status post abdominal wound closure today. Small open area with a wound VAC in place. Two ZAIDA drains intact. Warm blanket device in place due to low temperature of 95.0. Patient is also status post exploratory laparotomy on 06/22/2024 and right transverse colon resection with anastomosis, right colostomy, left urostomy and wound VAC placement on 06/26/2024. Continues with generalized edema and remains on furosemide drip. WBC is slightly elevated to 12.8. Patient continues on ceftazidime, metronidazole and fluconazole. We will continue to follow patient's care. PHYSICAL EXAM EYES: Anicteric. Pupils equal and reactive. HENT: No oral thrush seen, moist Oral mucosa. NECK: Supple, no JVD or thyromegaly. LUNGS: Good air entry. No rales, no rhonchi. Mechanical ventilation. CARDIOVASCULAR: S1, S2 regular. No murmur heard. ABDOMEN: Soft, non tender, bowel sounds present, no organomegaly. Open surgical incision with a wound VAC. Right colostomy. Left Urostomy. ZAIDA drains. CENTRAL NERVOUS SYSTEM: Intubated and sedated. SKIN: No rashes, no swelling. LYMPHATICS: No peripheral lymphadenopathy. MUSCULOSKELETAL: No joint swelling, erythema or tenderness. EXTREMITIES: No cyanosis or clubbing. BACK: No deformity, no pressure ulcer. GENITOURINARY: No dysuria or hematuria. Hearn catheter. Vital Sign (Last 12 Hours) 06/30/24 06/30/24 06/30/24 06/30/24 02:30 02:45 03:00 03:07 Pulse 67 68 63 66 Resp 18 18 18 B/P (MAP) 153/78 (103) 158/82 (107) 151/78 (102) Pulse Ox 100 100 100 FiO2 30 06/30/24 06/30/24 06/30/24 06/30/24 03:15 03:30 03:45 04:00 Pulse 67 63 60 Resp 18 18 18 B/P (MAP) 159/82 (107) 153/78 (103) 151/78 (102) Pulse Ox 100 100 100 FiO2 30 06/30/24 06/30/24 06/30/24/11/25 04:00 04:00 05:00 05:15 Temp 97.0 Pulse 61 63 61 Resp 18 18 18 B/P (MAP) 152/79 (103) 156/80 (105) 152/78 (102) Pulse Ox 100 100 100 100 O2 Delivery Ventilator+ FiO2 30 06/30/24 06/30/24 06/30/24 06/30/24 05:30 05:45 06:00 06:15 Pulse 70 63 60 58 Resp 19 18 18 18 B/P (MAP) 166/87 (113) 154/77 (102) 149/75 (99) 146/75 (98) Pulse Ox 100 100 100 100 06/30/24 06/30/24 06/30/24 06/30/24 06:30 06:45 07:00 07:14 Pulse 58 60 64 60 Resp 18 19 18 B/P (MAP) 145/75 (98) 151/78 (102) 159/81 (107) Pulse Ox 100 100 100 FiO2 30 06/30/24 06/30/24 06/30/24 06/30/24 07:15 07:30 08:00 08:00 Temp 96.4 Pulse 59 61 66 Resp 18 18 18 B/P (MAP) 148/75 (99) 150/75 (100) 155/79 (104) Pulse Ox 100 100 100 FiO2 30 06/30/24 06/30/24 06/30/24 06/30/24 08:00 08:15 08:30 11:30 Temp 95.0 Pulse 62 60 68 Resp 18 18 18 B/P (MAP) 150/76 (100) 146/74 (98) 134/74 (94) Pulse Ox 100 100 100 100 O2 Delivery Ventilator+ FiO2 30 06/30/24 06/30/24 06/30/24 06/30/24 11:36 11:45 12:00 12:00 Pulse 68 64 Resp 18 B/P (MAP) 139/78 (98) Pulse Ox 100 100 O2 Delivery Ventilator+ FiO2 30 30 30 Intake & Output (last 24hrs) 06/29/24 06/29/24 06/30/24 15:00 23:00 07:00 Intake Total 1440.0 ml 1675.5 ml 1438.0 ml Output Total 880 ml 1800 ml Balance 1440.0 ml 795.5 ml -362.0 ml LABS: Laboratory: Test 06/30/24 11:57 06/30/24 04:44 06/29/24 21:43 06/29/24 12:30 Range/Units Blood Gas Specimen Type Arterial Arterial Blood pH 7.492 H 7.350-7.450 Arterial Blood Partial Pressure CO2 34 32-45 mmHg Arterial Blood Partial Pressure O2 72.2 L 83.0-108.0 mmHg Arterial Blood HCO3 25.4 21.0-28.0 mmol/L Arterial Blood Oxygen Saturation 94.6 94.0-98.0 % Arterial Blood Base Excess 2.3 -2.0-3.0 mmol/L Hemoglobin (Blood Gas) 10.4 L 12.0-16.0 g/dL Sodium (Blood Gas) 127 L 136-145 MMOL/L Bedside Potassium (Blood Gas) 3.3 L 3.4-4.5 MMOL/L Bedside Chloride (Blood Gas) 94 L 98-107 MMOL/L Bedside Glucose (Blood Gas) 117 H 65-95 MG/DL Bedside Ionized Calcium (Blood Gas) 1.00 L 1.15-1.33 MMOL/L Bedside Lactic Acid (Blood Gas) 1.22 H 0.36-0.75 MMOL/L Blood Gas Temperature 37.0 35.5-37.0 CELSIUS Blood Gas Respiration Rate 18.0 min. Blood Gas Vent Mode AC TOÑO, TRUDI ROOM AIR FiO2 30.0 % Blood Gas Tidal Volume 450 ml Blood Gas PEEP 5 cm H2O Blood Gas Specimen Comment KADE White Blood Count 12.8 H 4.8-10.8 K/uL Red Blood Count 3.53 L 4.00-5.50 MIL/uL Hemoglobin 10.3 L 12.0-16.0 g/dL Hematocrit 29.9 L 36-48 % Mean Corpuscular Volume 84.7 79-99 fL Mean Corpuscular Hemoglobin 29.2 27.0-33.0 pg Mean Corpuscular Hemoglobin Concent 34.4 32.0-36.0 g/dL Red Cell Distribution Width 16.0 H 11.0-15.5 % Platelet Count 85 #L 130-400 K/uL Mean Platelet Volume 10.7 H 7.5-10.5 fL Immature Granulocyte % (Auto) 3.7 H 0-1 % Neutrophils (%) (Auto) 87.8 H 40.0-77.0 % Lymphocytes (%) (Auto) 4.4 L 21.0-51.0 % Monocytes (%) (Auto) 3.5 3.0-13.0 % Eosinophils (%) (Auto) 0.2 0.0-8.0 % Basophils (%) (Auto) 0.4 0.0-5.0 % Neutrophils # (Auto) 11.3 H 1.8-7.7 K/uL Lymphocytes # (Auto) 0.6 L 1.0-4.8 K/uL Monocytes # (Auto) 0.5 0.1-1.0 K/uL Eosinophils # (Auto) 0.02 0.00-0.70 K/uL Basophils # (Auto) 0.05 0.00-0.20 K/uL Absolute Immature Granulocyte (auto 0.47 0-1 K/uL Nucleated Red Blood Cells 0.0 0.0-0.19 % Sodium Level 127 L 136-145 mmol/L Potassium Level 3.6 3.5-5.1 mmol/L Chloride Level 94 L 101-111 mmol/L Carbon Dioxide Level 28 21-32 mmol/L Blood Urea Nitrogen 57 H 7-18 mg/dL Creatinine 1.2 H 0.5-1.0 mg/dL Glomerular Filtration Rate Calc 48 >90 mL/min Random Glucose 196 H 70-105 mg/dL Total Calcium 7.5 L 8.5-10.1 mg/dL Total Bilirubin 0.6 0.2-1.0 mg/dL Aspartate Amino Transf (AST/SGOT) 14 10-37 U/L Alanine Aminotransferase (ALT/SGPT) 8 L 12-78 U/L Alkaline Phosphatase 248 H 50-136 U/L Total Protein 4.1 L 6.0-8.3 g/dL Albumin 1.4 L 3.5-5.0 g/dL Whole Blood Glucose 152 H 70-110 MG/DL Iron Level 109 # 50-170 mcg/dL Total Iron Binding Capacity 125 L 250-450 mcg/dL Percent Iron Saturation 87.2 H 22-44 % Test 06/29/24 04:36 Range/Units Prothrombin Time 13.9 H 9.6-11.6 SEC Prothromb Time International Ratio 1.35 H 0.85-1.15 Activated Partial Thromboplast Time 35.0 26.3-35.5 SEC Fibrinogen 486 H 180-350 mg/dL Magnesium Level 1.90 1.80-2.40 mg/dL B-Type Natriuretic Peptide 1430 H 0-100 pg/mL ASSESSMENT: Nontraumatic intestinal perforation, 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 Generalized peritonitis with E coli. Septic shock. Leukocytosis, resolving. Urinary tract infection with E coli. Thrombocytopenia, requiring platelet transfusion. Postoperative anemia requiring blood transfusion. Acute on chronic renal failure, resolving. Generalized edema. PLAN: Continues on ceftazidime. Continue on fluconazole. Continue on metronidazole IV. Continue GI prophylaxis. Continue critical care support. Continue vasopressor support. Continue mechanical ventilation. Hemoglobin and hematocrit are being monitor. Avoid nephrotoxic medications. Patient is currently on furosemide drip. This case was reviewed and discussed with my supervising physician and the above assessment and plan was formulated and agreed upon. ATTESTATION BY PHYSICIAN I have seen and examined the patient. I reviewed the documentation, medical decision making, and treatment plan as noted by the mid-level provider above. I agree with the findings and plan of care. GOSIA INIGUEZ MD, [facility] Jun 30, 2024 14:27
--- NOTE | 2024-06-30 19:16 | NUR ---
HAND OFF REPORT GIVEN TO GUERITA RN
--- NOTE | 2024-06-30 23:24 | PN ---
The patient is a 73-year-old female with history of diabetes mellitus, osteoarthritis, and hypertension, who presented to the Emergency Room, with abdominal pain. It has been going on for 2-3 days. The patient also complained of fever, chills, nausea and vomiting. The patient in the ER was found with low blood pressure. CT of the abdomen was done, which shows large amount of free intraperitoneal air. General Surgery was consulted and the patient was taken for exploratory laparotomy, which revealed pneumoperitoneum with intestinal perforation. Bowel resection was done. The patient was admitted to ICU. Patient is intubated sedated. The patient is on multiple vasopressors, has been started on antibiotic. No family at the bedside. Patient is DNR. I was consulted because there is suspicious for DIC. Patient received multiple platelet transfusion. There is no obvious bleeding. Patient is off pressor. There is plan to extubate tomorrow PHYSICAL EXAMINATION: GENERAL: Elderly female, intubated, sedated, ill looking. VITAL SIGNS: Temperature 94.6, pulse 146, respiratory rate 19, BP 136/88. EYES: No icterus. Pupils equal and reactive. HENT: Orally intubated, ventilatory support. NG tube in place. NECK: Supple, no JVD or thyromegaly. LUNGS: Good air entry. No rales, no rhonchi. CARDIOVASCULAR: S1, S2 regular, tachycardic. No murmur heard. ABDOMEN: Open abdominal surgical incision, which is sealed with wound vacuum. CENTRAL NERVOUS SYSTEM: The patient is sedated. No withdrawal to tactile stimuli. SKIN: No rashes, no itchiness. MUSCULOSKELETAL: Chronic dislocation and swelling involving the left hip, no signs of infection. GENITOURINARY: Hearn catheter in place and hematuria. Assessment 1. Low platelets status post transfusion 2. Elevated PTT. 3. Respiratory failure with the patient is intubated sedated 4. Intestinal perforation status post exploratory laparotomy 5. Leukocytosis 6. Renal failure 7. Sepsis Plan 1. Peripheral blood smear showed red blood cells to be normocytic normochromic. There was no fragment cell or schistocyte. There is no teardrop cell. There is no rouleaux phenomena. There is no pelger-Huet cell. White blood cell with no blasts. Platelet was normal in morphology and count. 2. continue on folic acid 1 mg p.o. daily and vitamin B12 1000 mcg p.o. daily. 3. There is no fragment cell or schistocytes. This is rule DIC from my point review especially with the fibrinogen level was 486 and now 235. The number is too high for DIC usually should be below 100 or even below 150. 4. This patient with PTT prolongation. Even though there is no anticoagulation about according to nurse. We will ask for mixing study to be done. We will follow-up with the result 5. The patient is off pressor. There is plan for possible extubation tomorrow Vitals/Labs Vital Signs Date Time Temp Pulse Resp B/P (MAP) Pulse Ox O2 Delivery O2 Flow Rate FiO2 06/30/24 22:30 63 18 110/58 (75) 100 30 06/30/24 19:00 Ventilator+ 06/30/24 19:00 99.1 Laboratory Tests 06/30/24 04:44 Medications Current Medications Pantoprazole Sodium 80 mg ONCE ONCE IVP Last administered on 06/22/24 18:12; Start 06/22/24 at 17:30; Stop 06/22/24 at 17:31; Status DC Ceftriaxone Sodium 1 gm ONCE ONCE IVPB Last administered on 06/22/24 18:12; Start 06/22/24 at 17:30; Stop 06/22/24 at 17:31; Status DC Hydromorphone HCl 0.5 mg ONCE ONCE IVP Last administered on 06/22/24 18:25; Start 06/22/24 at 18:30; Stop 06/22/24 at 18:31; Status DC Hydromorphone HCl 0.5 mg STK-MED ONCE .ROUTE; Start 06/22/24 at 18:12; Stop 06/22/24 at 18:12; Status DC Lactated Ringer's 2,000 ml @ 0 mls/hr ONCE ONCE IV Last administered on 06/22/24at 20:16; Start 06/22/24 at 19:30; Stop 06/22/24 at 19:31; Status DC Norepinephrine 250 ml @ 0 mls/hr PROTOCOL IV Last administered on 06/22/24at 20:15; Start 06/22/24 at 19:30; Stop 06/23/24 at 03:51; Status DC Vasopressin 20 units/Sodium Chloride 100 ml @ 0 mls/hr PROTOCOL IV Last administered on 06/24/24at 08:43; Start 06/22/24 at 20:30; Stop 07/22/24 at 20:29 Lactated Ringer's 2,178 ml @ 726 mls/hr ONCE ONCE IV Last administered on 06/22/24at 20:46; Start 06/22/24 at 20:30; Stop 06/22/24 at 23:29; Status DC Acetaminophen 650 mg Q6H PRN RC; Start 06/22/24 at 20:30; Stop 07/22/24 at 20:29 Pantoprazole Sodium 40 mg DAILY IV; Start 06/23/24 at 09:00; Stop 06/23/24 at 03:19; Status DC Ondansetron HCl 4 mg Q6H PRN IV; Start 06/22/24 at 20:30; Stop 07/22/24 at 20:29 Morphine Sulfate 2 mg Q4H PRN IVP; Start 06/22/24 at 20:30; Stop 06/23/24 at 03:21; Status DC Lactated Ringer's 1,000 ml @ 125 mls/hr Q8H IV Last administered on 06/23/24at 11:23; Start 06/22/24 at 20:30; Stop 06/23/24 at 12:44; Status DC Heparin Sodium (Porcine) 5,000 unit BID SQ; Start 06/22/24 at 21:00; Stop 06/22/24 at 20:48; Status DC Insulin Human Regular INSULIN SLIDING SCAL... ACHS SQ Last administered on 06/24/24at 10:09; Start 06/22/24 at 21:00; Stop 06/24/24 at 15:37; Status DC Potassium Chloride 100 ml @ 50 mls/hr ONCE ONCE IV Last administered on 06/22/24at 21:06; Start 06/22/24 at 21:00; Stop 06/22/24 at 22:59; Status DC Cefepime HCl 2 gm Q12H IVPB Last administered on 06/22/24at 22:03; Start 06/22/24 at 21:00; Stop 06/23/24 at 03:25; Status DC Lactated Ringer's 500 ml BOLUS ONCE IV Last administered on 06/22/24at 22:01; Start 06/22/24 at 21:00; Stop 06/22/24 at 21:01; Status DC Albumin Human 100 ml @ 0 mls/hr Q6H6 IV; Start 06/23/24 at 00:00; Stop 06/23/24 at 12:52; Status DC Vasopressin 20 units STK-MED ONCE .ROUTE; Start 06/22/24 at 21:05; Stop 06/22/24 at 21:06; Status DC Sodium Chloride 4 ml STK-MED ONCE IH Last administered on 06/22/24at 22:59; Start 06/22/24 at 22:08; Stop 06/22/24 at 22:08; Status DC Sodium Bicarbonate 50 meq ONCE ONCE IV; Start 06/22/24 at 23:00; Stop 06/22/24 at 23:01; Status DC Ketamine HCl 50 mg STK-MED ONCE .ROUTE; Start 06/22/24 at 23:59; Stop 06/23/24 at 00:00; Status DC Lidocaine HCl 100 mg STK-MED ONCE .ROUTE; Start 06/23/24 at 00:01; Stop 06/23/24 at 00:02; Status DC Rocuronium [place] 50 mg STK-MED ONCE .ROUTE; Start 06/23/24 at 00:02; Stop 06/23/24 at 00:03; Status DC Fentanyl Citrate 100 mcg STK-MED ONCE .ROUTE; Start 06/23/24 at 00:02; Stop 06/23/24 at 00:03; Status DC Midazolam HCl 2 mg STK-MED ONCE .ROUTE; Start 06/23/24 at 00:03; Stop 06/23/24 at 00:03; Status DC Phenylephrine HCl 10 mg STK-MED ONCE IV; Start 06/23/24 at 00:25; Stop 06/23/24 at 00:25; Status DC Cefazolin Sodium 1 gm STK-MED ONCE .ROUTE Last administered on 06/23/24at 00:00; Start 06/23/24 at 00:40; Stop 06/23/24 at 00:43; Status DC Cefazolin Sodium 1 gm STK-MED ONCE .ROUTE; Start 06/23/24 at 01:32; Stop 06/23/24 at 01:32; Status DC Dextrose 50 ml STK-MED ONCE IV Last administered on 06/23/24at 04:03; Start 06/23/24 at 03:09; Stop 06/23/24 at 03:14; Status DC Hydromorphone HCl 1 mg Q3H3 PRN IVP; Start 06/23/24 at 03:30; Stop 06/28/24 at 03:29; Status DC Ketorolac Tromethamine 15 mg Q6H PRN IV; Start 06/23/24 at 03:30; Stop 06/27/24 at 18:23; Status DC Pantoprazole Sodium 40 mg BID IVP Last administered on 06/30/24at 20:33; Start 06/23/24 at 09:00; Stop 07/23/24 at 08:59 Piperacillin Sod/ Tazobactam Sod 3.375 gm Q8H IVPB; Start 06/23/24 at 03:30; Stop 06/23/24 at 04:34; Status DC Sodium Chloride 50 ml AD IV; Start 06/23/24 at 03:30; Stop 06/23/24 at 03:26; Status DC Fluconazole/ Sodium Chloride 200 mg Q24H IVPB Last administered on 06/30/24at 03:27; Start 06/23/24 at 03:30; Stop 07/23/24 at 03:29 Enoxaparin Sodium 30 mg DAILY SQ Last administered on 06/25/24at 07:35; Start 06/23/24 at 09:00; Stop 06/30/24 at 09:13; Status DC Acetaminophen 650 mg Q4H PRN PO; Start 06/23/24 at 03:30; Stop 07/23/24 at 03:29 Ondansetron HCl 4 mg Q6H PRN IVP; Start 06/23/24 at 03:30; Stop 06/23/24 at 03:18; Status DC Propofol 1,000 mg PROTOCOL PRN IV Last administered on 06/23/24at 04:06; Start 06/23/24 at 03:30; Stop 07/23/24 at 03:29 Norepinephrine Bitartrate 32 mg/ Sodium Chloride 250 ml @ 0 mls/hr Q0M STAT IV Last administered on 06/23/24at 07:22; Start 06/23/24 at 03:47; Stop 06/23/24 at 03:52; Status DC Magnesium Sulfate 50 ml @ 0 mls/hr PROTOCOL IV Last administered on 06/27/24at 06:31; Start 06/23/24 at 04:30; Stop 07/23/24 at 04:29 Cefepime HCl 2 gm Q24H IVPB Last administered on 06/23/24at 21:15; Start 06/23/24 at 21:00; Stop 06/23/24 at 21:47; Status DC Potassium Chloride 100 ml @ As Directed STK-MED ONCE IV; Start 06/23/24 at 04:55; Stop 06/23/24 at 04:55; Status DC Magnesium Sulfate 4 gm AD IV; Start 06/23/24 at 05:30; Stop 06/23/24 at 05:59; Status DC Sodium Bicarbonate 100 meq ONCE ONCE IV Last administered on 06/23/24at 07:23; Start 06/23/24 at 05:30; Stop 06/23/24 at 05:31; Status DC Lactated Ringer's 500 ml BOLUS IV; Start 06/23/24 at 05:30; Stop 06/24/24 at 13:22; Status DC Potassium Chloride 100 ml @ 50 mls/hr ONCE ONCE IV Last administered on 06/23/24at 07:24; Start 06/23/24 at 05:30; Stop 06/23/24 at 07:29; Status DC Potassium Chloride 100 ml @ 50 mls/hr AD PRN IV Last administered on 06/30/24at 13:50; Start 06/23/24 at 05:30; Stop 07/23/24 at 05:29 Phenylephrine HCl 100 mg/Sodium Chloride 250 ml @ 0 mls/hr PROTOCOL IV Last administered on 06/23/24at 13:00; Start 06/23/24 at 08:30; Stop 07/23/24 at 08:29 Midazolam HCl 100 ml ONCE ONCE IV Last administered on 06/23/24at 08:46; Start 06/23/24 at 09:00; Stop 06/23/24 at 09:01; Status DC Midazolam HCl 100 ml ONCE ONCE IV; Start 06/23/24 at 09:00; Stop 06/23/24 at 08:44; Status DC Fentanyl Citrate 100 ml @ 2.5 mls/hr PROTOCOL IV Last administered on 06/26/24at 17:13; Start 06/23/24 at 09:00; Stop 06/26/24 at 20:27; Status DC Hydrocortisone Sodium Succinate 50 mg Q6H6 IV Last administered on 06/26/24at 05:33; Start 06/23/24 at 09:00; Stop 06/26/24 at 13:48; Status DC Sodium Bicarbonate 200 meq ONCE ONCE IV Last administered on 06/23/24 10:57; Start 06/23/24 at 11:00; Stop 06/23/24 at 11:01; Status DC Sodium Bicarbonate 100 meq ONCE ONCE IV Last administered on 06/23/24 11:05; Start 06/23/24 at 11:00; Stop 06/23/24 at 11:01; Status DC Dextrose 50 ml STK-MED ONCE IV Last administered on 06/23/24 11:22; Start 06/23/24 at 11:11; Stop 06/23/24 at 11:11; Status DC Albumin Human 250 ml @ 0 mls/hr AD IV Last administered on 06/24/24 13:26; Start 06/23/24 at 11:30; Stop 06/24/24 at 11:29; Status DC Furosemide 100 mg/ Sodium Chloride 100 ml @ 0 mls/hr PROTOCOL IV Last administered on 06/23/24 11:37; Start 06/23/24 at 12:00; Stop 06/23/24 at 12:44; Status DC Sodium Chloride 1,000 ml @ 0 mls/hr Q0M IV Last administered on 06/23/24 15:43; Start 06/23/24 at 12:00; Stop 07/23/24 at 11:59 Dextrose 50 ml STK-MED ONCE IV Last administered on 06/23/24 12:31; Start 06/23/24 at 12:28; Stop 06/23/24 at 12:28; Status DC Sodium Bicarbonate 150 meq/Dextrose 1,150 ml @ 50 mls/hr Q23H IVP Last administered on 06/24/24 19:34; Start 06/23/24 at 13:00; Stop 06/25/24 at 17:25; Status DC Multivitamins/ Minerals 10 ml/ Amino Acids/ Electrolytes/ Dextrose 2,000 ml @ 83 mls/hr ONCE ONCE IV Last administered on 06/23/24 15:20; Start 06/23/24 at 13:00; Stop 06/24/24 at 13:05; Status DC Fat Emulsion Intravenous 250 ml @ 42 mls/hr DAILY10 IV Last administered on 3/5/25at 10:07; Start 06/24/24 at 10:00; Stop 06/24/24 at 13:22; Status DC Metronidazole/ Sodium Chloride 100 ml @ 100 mls/hr Q8H6 IVPB Last administered on 06/30/24at 21:29; Start 06/23/24 at 14:00; Stop 07/03/24 at 13:59 Pharmacy Profile Note 1 each ONCE MISC; Start 06/23/24 at 14:00; Stop 06/23/24 at 13:46; Status DC Linezolid 300 ml @ 150 mls/hr Q12H IV Last administered on 06/26/24at 03:27; Start 06/23/24 at 15:00; Stop 06/26/24 at 10:34; Status DC Lactated Ringer's 1,000 ml BOLUS ONCE IV Last administered on 06/23/24at 18:40; Start 06/23/24 at 17:30; Stop 06/23/24 at 17:31; Status DC Ceftazidime 1 gm Q24H IVPB Last administered on 06/30/24at 01:01; Start 06/24/24 at 01:30; Stop 07/04/24 at 01:29 Midazolam HCl 100 ml @ 0 mls/hr AD PRN IV Last administered on 06/30/24at 19:17; Start 06/23/24 at 22:00; Stop 07/23/24 at 21:59 Albumin Human 250 ml @ 0 mls/hr AD IV; Start 06/24/24 at 12:00; Stop 06/24/24 at 13:21; Status DC Fat Emulsion Intravenous 250 ml @ 42 mls/hr [id number]@1000 IV Last administered on 06/29/24at 10:50; Start 06/26/24 at 10:00; Stop 07/24/24 at 09:59 Multivitamins/ Minerals 10 ml/ Amino Acids/ Electrolytes/ Dextrose 2,000 ml @ 83 mls/hr ONCE ONCE IV Last administered on 06/24/24at 19:34; Start 06/24/24 at 13:30; Stop 06/25/24 at 13:35; Status DC Pharmacy Profile Note 1 each AD MISC; Start 06/24/24 at 14:00; Stop 06/24/24 at 13:53; Status DC Lactated Ringer's 1,000 ml @ 50 mls/hr Q20H ONCE IV Last administered on 06/24/24at 15:14; Start 06/24/24 at 14:30; Stop 06/25/24 at 10:29; Status DC Artificial Tears 1 DROP BID OU Last administered on 06/30/24at 20:33; Start 06/24/24 at 21:00; Stop 07/24/24 at 20:59 Insulin Human Regular INSULIN SLIDING SCAL... Q6H6 SQ Last administered on 06/24/24at 23:32; Start 06/24/24 at 18:00; Stop 06/25/24 at 06:25; Status DC Insulin Human Regular 100 unit/ Sodium Chloride 100 ml @ 0 mls/hr AD IV Last administered on 06/28/24at 01:08; Start 06/25/24 at 06:30; Stop 07/02/24 at 06:29 Furosemide 20 mg ONCE STAT IV Last administered on 06/25/24at 16:11; Start 06/25/24 at 15:49; Stop 06/25/24 at 15:50; Status DC Pharmacy Profile Note 1 each ONCE STAT MISC; Start 06/25/24 at 17:11; Stop 06/26/24 at 15:42; Status DC Furosemide 20 mg Q8H IV Last administered on 06/27/24at 10:01; Start 06/25/24 at 17:30; Stop 06/27/24 at 17:29; Status DC Sodium Bicarbonate 150 meq/Sodium Chloride 1,150 ml @ 50 mls/hr Q23H IVP Last administered on 06/25/24at 17:42; Start 06/25/24 at 17:30; Stop 06/25/24 at 17:52; Status DC Sodium Bicarbonate 150 meq/Sterile Water 1,150 ml @ 50 mls/hr Q23H IVP Last administered on 06/25/24at 18:18; Start 06/25/24 at 18:00; Stop 06/26/24 at 14:36; Status DC Multivitamins/ Minerals 10 ml/ Amino Acids/ Electrolytes/ Dextrose 2,000 ml @ 83 mls/hr ONCE ONCE IV Last administered on 06/25/24at 21:21; Start 06/25/24 at 21:00; Stop 06/26/24 at 21:05; Status DC Rocuronium [place] 50 mg STK-MED ONCE .ROUTE; Start 06/26/24 at 10:26; Stop 06/26/24 at 10:26; Status DC Cefazolin Sodium 1 gm STK-MED ONCE .ROUTE Last administered on 06/26/24at 00:00; Start 06/26/24 at 10:35; Stop 06/26/24 at 10:36; Status DC Fentanyl Citrate 250 mcg STK-MED ONCE IV; Start 06/26/24 at 10:49; Stop 06/26/24 at 10:50; Status DC Rocuronium [place] 50 mg STK-MED ONCE .ROUTE; Start 06/26/24 at 10:53; Stop 06/26/24 at 10:53; Status DC Albuterol Sulfate 1 inh STK-MED ONCE IH; Start 06/26/24 at 11:06; Stop 06/26/24 at 11:06; Status DC Phenylephrine HCl 10 mg STK-MED ONCE IV; Start 06/26/24 at 11:33; Stop 06/26/24 at 11:33; Status DC Albumin Human 500 ml @ As Directed STK-MED ONCE IV; Start 06/26/24 at 12:12; Stop 06/26/24 at 12:12; Status DC Rocuronium [place] 50 mg STK-MED ONCE .ROUTE; Start 06/26/24 at 13:08; Stop 06/26/24 at 13:08; Status DC Hydrocortisone Sodium Succinate 25 mg Q12H IV Last administered on 06/30/24at 13:49; Start 06/26/24 at 14:00; Stop 07/23/24 at 08:59 Lactated Ringer's 500 ml @ 0 mls/hr Q0M ONCE IV Last administered on 06/26/24at 15:43; Start 06/26/24 at 15:00; Stop 06/26/24 at 15:01; Status DC Calcium Gluconate 1 gm/Sodium Chloride 100 ml @ 0 mls/hr PROTOCOL IV Last administered on 06/26/24at 16:57; Start 06/26/24 at 16:00; Stop 06/29/24 at 08:10; Status DC Albumin Human 250 ml @ As Directed STK-MED ONCE IV; Start 06/26/24 at 16:27; Stop 06/26/24 at 16:27; Status DC Calcium Gluconate 1 gm STK-MED ONCE .ROUTE; Start 06/26/24 at 16:27; Stop 06/26/24 at 16:27; Status DC Metoprolol Tartrate 5 mg ONCE IV Last administered on 06/26/24at 17:28; Start 06/26/24 at 17:00; Stop 06/26/24 at 21:30; Status DC Albumin Human 50 ml @ 0 mls/hr AD IV; Start 06/26/24 at 17:30; Stop 06/26/24 at 17:32; Status DC Metoprolol Tartrate 5 mg STK-MED ONCE IV; Start 06/26/24 at 17:04; Stop 06/26/24 at 17:05; Status DC Albumin Human 250 ml @ 400 mls/hr AD IV Last administered on 06/26/24at 17:36; Start 06/26/24 at 17:30; Stop 06/27/24 at 18:03; Status DC Lactated Ringer's 1,000 ml @ 40 mls/hr Q24H IV Last administered on 06/30/24at 17:48; Start 06/26/24 at 20:30; Stop 07/26/24 at 20:29 Multivitamins/ Minerals 10 ml/ Amino Acids/ Electrolytes/ Dextrose 2,000 ml @ 83 mls/hr AD IV Last administered on 06/26/24at 21:58; Start 06/26/24 at 20:30; Stop 06/27/24 at 18:02; Status DC Fentanyl/Sodium Chloride 250 ml @ As Directed STK-MED ONCE IV Last administered on 06/26/24at 20:23; Start 06/26/24 at 20:15; Stop 06/26/24 at 20:15; Status DC Fat Emulsion Intravenous 250 ml @ 42 mls/hr MoWeFr IV; Start 06/29/24 at 20:18; Stop 07/29/24 at 20:17; Status Cancel Fentanyl Citrate 2500 mcg/Sodium Chloride 250 ml @ 0 mls/hr AD PRN IV; Start 06/26/24 at 20:30; Stop 06/26/24 at 20:41; Status DC Fentanyl/Sodium Chloride 250 ml @ 0 mls/hr PROTOCOL IV Last administered on 06/30/24at 20:29; Start 06/26/24 at 21:00; Stop 07/01/24 at 20:59 Sodium Bicarbonate 150 meq/Dextrose 1,150 ml @ 50 mls/hr Q23H IV; Start 06/26/24 at 23:00; Stop 06/26/24 at 22:55; Status DC Sodium Bicarbonate 150 meq/Dextrose 1,150 ml @ 50 mls/hr Q23H IVP Last administered on 06/27/24at 00:56; Start 06/26/24 at 23:00; Stop 06/27/24 at 17:57; Status DC Tranexamic Acid 1,000 mg ONCE ONCE IV; Start 06/27/24 at 18:00; Stop 06/27/24 at 18:02; Status DC Desmopressin Acetate 25 mcg/ Sodium Chloride 50 ml @ 100 mls/hr ONCE ONCE IJ Last administered on 06/27/24at 18:07; Start 06/27/24 at 18:00; Stop 06/27/24 at 18:29; Status DC Tranexamic Acid 1000 mg/Sodium Chloride 100 ml @ 0 mls/hr ONCE ONCE IV Last administered on 06/27/24at 18:08; Start 06/27/24 at 18:30; Stop 06/27/24 at 18:31; Status DC Aminocaproic Acid NEED DOSE AND IV FLUID ONCE ONCE IV; Start 06/27/24 at 18:30; Stop 06/27/24 at 18:34; Status DC Aminocaproic Acid 28036 mg/Sodium Chloride 500 ml @ 0 mls/hr AD IV; Start 06/27/24 at 19:30; Stop 06/27/24 at 18:37; Status DC Pharmacy Profile Note 1 each ONCE MISC; Start 06/27/24 at 19:00; Stop 06/27/24 at 18:50; Status DC Aminocaproic Acid 5000 mg/Sodium Chloride 250 ml @ 0 mls/hr ONCE ONCE IV Last administered on 06/27/24at 19:54; Start 06/27/24 at 19:00; Stop 06/27/24 at 19:01; Status DC Aminocaproic Acid 1000 mg/Sodium Chloride 50 ml @ 50 mls/hr ONCE ONCE IV Last administered on 06/27/24at 20:00; Start 06/27/24 at 20:00; Stop 06/27/24 at 20:59; Status DC Multivitamins/ Minerals 10 ml/ Amino Acids/ Electrolytes/ Dextrose 2,000 ml @ 83 mls/hr ONCE ONCE IV Last administered on 06/27/24at 23:59; Start 06/27/24 at 20:00; Stop 06/28/24 at 20:05; Status DC Calcium Gluconate 1 gm ONCE ONCE IV; Start 06/27/24 at 20:00; Stop 06/27/24 at 20:06; Status DC Calcium Gluconate 2 gm/Sodium Chloride 120 ml @ 120 mls/hr PROTOCOL PRN IV Last administered on 06/28/24at 01:06; Start 06/28/24 at 00:30; Stop 07/28/24 at 00:29 Calcium Gluconate 1 gm/Sodium Chloride 100 ml @ 100 mls/hr ONCE ONCE IV Last administered on 06/28/24at 10:26; Start 06/28/24 at 10:30; Stop 06/28/24 at 11:29; Status DC Furosemide 20 mg ONCE ONCE IV Last administered on 06/28/24at 13:26; Start 06/28/24 at 13:30; Stop 06/28/24 at 13:31; Status DC Furosemide 20 mg Q8H IV Last administered on 06/29/24at 03:04; Start 06/28/24 at 20:00; Stop 06/29/24 at 10:14; Status DC Multivitamins/ Minerals 10 ml/ Amino Acids/ Dextrose 2,000 ml @ 83.333 mls/ hr ONCE ONCE IV Last administered on 06/29/24at 04:28; Start 06/29/24 at 04:30; Stop 06/30/24 at 03:12; Status DC Calcium Gluconate 1 gm/Sodium Chloride 100 ml @ 0 mls/hr PROTOCOL IV; Start 06/29/24 at 08:30; Stop 07/29/24 at 08:29 Furosemide 100 mg/ Sodium Chloride 100 ml @ 0 mls/hr PROTOCOL IV Last administered on 06/30/24at 15:41; Start 06/29/24 at 10:30; Stop 07/29/24 at 10:29 Albumin Human 50 ml @ 0 mls/hr AD ONCE IV Last administered on 06/29/24at 17:23; Start 06/29/24 at 15:30; Stop 06/29/24 at 15:31; Status DC Insulin Human Regular INSULIN SLIDING SCAL... ACHS SQ Last administered on 06/30/24at 20:54; Start 06/29/24 at 21:00; Stop 07/29/24 at 20:59 Multivitamins/ Minerals 10 ml/ Amino Acids/ Dextrose 2,000 ml @ 83.333 mls/ hr ONCE ONCE IV Last administered on 06/30/24at 03:40; Start 06/30/24 at 04:00; Stop 06/30/24 at 18:16; Status DC Lidocaine HCl 100 mg STK-MED ONCE .ROUTE; Start 06/30/24 at 07:39; Stop 06/30/24 at 07:39; Status DC Ondansetron HCl 4 mg STK-MED ONCE .ROUTE; Start 06/30/24 at 07:39; Stop 06/30/24 at 07:39; Status DC Succinylcholine Chloride 200 mg STK-MED ONCE .ROUTE; Start 06/30/24 at 07:40; Stop 06/30/24 at 07:40; Status DC Dexamethasone Sodium Phosphate 10 mg STK-MED ONCE .ROUTE; Start 06/30/24 at 07:40; Stop 06/30/24 at 07:40; Status DC Glycopyrrolate 1 mg STK-MED ONCE .ROUTE; Start 06/30/24 at 07:40; Stop 06/30/24 at 07:41; Status DC Propofol 200 mg STK-MED ONCE IV; Start 06/30/24 at 07:40; Stop 06/30/24 at 07:41; Status DC Neostigmine Methylsulfate 10 mg STK-MED ONCE IV; Start 06/30/24 at 07:40; Stop 06/30/24 at 07:41; Status DC Rocuronium [place] 50 mg STK-MED ONCE .ROUTE; Start 06/30/24 at 07:41; Stop 06/30/24 at 07:41; Status DC Fentanyl Citrate 100 mcg STK-MED ONCE .ROUTE; Start 06/30/24 at 07:41; Stop 06/30/24 at 07:41; Status DC Midazolam HCl 2 mg STK-MED ONCE .ROUTE; Start 06/30/24 at 07:41; Stop 06/30/24 at 07:42; Status DC Albumin Human 500 ml @ As Directed STK-MED ONCE IV; Start 06/30/24 at 07:49; Stop 06/30/24 at 07:49; Status DC Ketamine HCl 50 mg STK-MED ONCE .ROUTE; Start 06/30/24 at 07:49; Stop 06/30/24 at 07:50; Status DC Rocuronium [place] 50 mg STK-MED ONCE .ROUTE; Start 06/30/24 at 09:42; Stop 06/30/24 at 09:43; Status DC Phenylephrine HCl 10 mg STK-MED ONCE IV; Start 06/30/24 at 09:43; Stop 06/30/24 at 09:44; Status DC Cefazolin Sodium 1 gm STK-MED ONCE .ROUTE Last administered on 06/30/24at 10:04; Start 06/30/24 at 09:54; Stop 06/30/24 at 09:55; Status DC Multivitamins/ Minerals 10 ml/ Amino Acids/ Electrolytes/ Dextrose 2,000 ml @ 83 mls/hr ONCE ONCE IV; Start 07/01/24 at 04:00; Stop 07/02/24 at 04:05 ENE HELLER MD Jun 30, 2024 23:24
[2024-07-01] VITALS (83 sets, daily range): BP systolic 21–154; BP diastolic 19–108; PULSE 59–133; RESP 10–30; TEMP 96.5–99.3; O2SAT 96–100
[2024-07-01 05:10] LABS: ALBUMIN 1.6 g/dL (3.5-5.0); BILIRUBIN,TOTAL 0.6 mg/dL (0.2-1.0); CREATININE 1.2 mg/dL (0.5-1.0); MAGNESIUM 1.7 mg/dL (1.80-2.40); POTASSIUM 3.5 mmol/L (3.5-5.1); TOTAL PROTEIN, SERUM 3.9 g/dL (6.0-8.3)
[2024-07-01] MEDS: M.V.I. IV [ADULT] 10 ML in CLINIMIX-E 5%AA /D15%W 2000ML 2,000 ML IV ONE (05:11)
[2024-07-01 05:21] LABS: BASOPHILS # (AUTO) 0.03 K/uL (0.00-0.20); BASOPHILS % (AUTO) 0.2 % (0.0-5.0); EOSINOPHILS # (AUTO) 0.01 K/uL (0.00-0.70); EOSINOPHILS % (AUTO) 0.1 % (0.0-8.0); HEMATOCRIT 27.1 % (36-48); IMMATURE GRANULOCYTE ABSOLUTE 0.53 K/uL (0-1); LYMPHOCYTES # (AUTO) 0.6 K/uL (1.0-4.8); LYMPHOCYTES % (AUTO) 3.3 % (21.0-51.0); MEAN CORPUSCULAR HEMOGLOBIN 29.3 pg (27.0-33.0); MEAN CORPUSCULAR HGB CONC 33.6 g/dL (32.0-36.0); MEAN CORPUSCULAR VOLUME 87.1 fL (79-99); MONOCYTES # (AUTO) 0.6 K/uL (0.1-1.0); MONOCYTES % (AUTO) 3.4 % (3.0-13.0); NEUTROPHILS # (AUTO) 16.1 K/uL (1.8-7.7); PLATELET COUNT (AUTO) 68 K/uL (130-400); RED BLOOD CELL COUNT(AUTO) 3.11 MIL/uL (4.00-5.50); RED CELL DISTRIBUTION WIDTH 16.2 % (11.0-15.5); WHITE BLOOD COUNT (AUTO) 17.9 K/uL (4.8-10.8)
--- NOTE | 2024-07-01 10:48 | NUR ---
LEFT GROIN A-LINE IS NON FUNCTIONAL- NO WAVEFORM. SALVAGE WAS ATTEMPTED. FLUSHES EASILY BUT WAVEFORM DAMPENS AFTER. NEW PRESSURE LINE AND BAG CHANGE DONE AND STILL NO WAVEFORM, UNABLE TO DRAW BACK BLOOD. WILL INFORM MDS. I WILL VFOLLOW NIBP FOR NOW. I HAVE BEGUN SEDATION VACATION THIS AM. PT WILL WINCE AND COUGH TO NOXIOUS STIMULI. LARGE DEEP PRESSURE ULCER TO COCCYX. TURNED PRN. VS STABLE
--- NOTE | 2024-07-01 11:48 | PN ---
[facility] PROGRESS NOTE Date Patient Seen: Jul 01, 2024 Time of Visit: 11:48 Supervising Physician: Roly Monson MD Consulting Physician: [facility] Outpatient Specialists: [ ] Inpatient Consults: [ ] PROBLEM LIST: Acute hypoxic Respiratory failure POA Acute encephalopathy, in the setting of severe sepsis POA Acute bowel perforation with subsequent peritonitis s/p exploratory laparotomy 06/23/24 Dr. Valenzuela POA Culture + E-coli. Repeat exploratory laparotomy on 06/26/2024 with small bowel anastomosis, right colon and transverse colon resection, colostomy creation, ileostomy tube placement and wound VAC placement. S/P wound closure and 2 ZAIDA to abdomen on 06/30/24 Shock etiology sepsis POA Suspected intraabdominal hemorrhage Urinary tract infection, POA E-coli multisensitive Pneumonitis, culture + for E-coli Acute kidney injury, POA Lactic acidosis, POA Acute blood loss anemia Thrombocytopenia Chronic debility, POA DM type 2, POA GERD, POA History small-bowel obstruction History of fibromyalgia History of hypertension, now hypotensive in the setting of septic shock versus hemorrhagic shock INTERVAL HISTORY: The Patient is status post abdominal wound closure day # 1. Wound VAC in place. Two ZAIDA drains intact. Pt is off sedation and trying to open her eys.Still on mechanical ventilator. ACVC tv 450, rr 18, fio2 of 30% and peep 5. She is currenlty on lasix drip at 10mg/hr. Pt tachycardic and tachypnic unable to perform SBT's today. Will try again tomorrow. She may be kept comfortable with precedex and fentanyl pushes we will continue daily sedation vacation and SBT's. She is off pressor hemodynamically stable and saturating 98% with a FiO2 of 30% and afebrile. Urine output 1.7 L in the last 24 hours. Left abdomen with 90 ml output from Gastrostomy tube to gravity drain. Medial abdomen wound vac drained 150ml, rt abdomen 40ml and rt lateral drained 20ml. Balance is still Positive of 2L. WBCs trended up 17.9 H&H is 9.1/27.1 platelet count of 68 K. on chemistries sodium is 129 potassium 3.5 corrected per protocol chloride 95 BUN 65 creatinine 1.2 and GFR of 48 consistent to yesterday. Magnesium 1.7 covered per protocol. Albumin of 1.6. Patient continues on TPN we will decreased to 75 mL/hour. Daughter and has been at the bedside updated on clinical findings. Answered all their questions agree with panel care. REVIEW OF SYSTEMS: Unable to obtain due to alteration in mental status PHYSICAL EXAM: GENERAL: Sedated and intubated. HEENT: EOMI, Sclera non icteric, moist mucosa NECK: Supple, no JVD, trachea midline LUNGS: Diminished bibasilar air. No wheezes HEART: Normal S1 and S2, without murmurs ABD: Abdomen is distended and tender to palpate. Bowel sounds present, Colostomy and ileostomy EXT: No clubbing cyanosis BLE edema +3 NEURO: Sedated. Vital Signs (last 8hr) Date Time Temp Pulse Resp B/P (MAP) Pulse Ox O2 Delivery O2 Flow Rate FiO2 07/01/24 10:30 111 20 140/80 (100) 98 30 07/01/24 10:15 107 18 122/77 (92) 97 30 07/01/24 10:00 109 18 122/79 (93) 97 30 21/19 (20) 07/01/24 09:51 108 30 07/01/24 09:45 111 10 120/79 (93) 95 30 24/20 (21) 07/01/24 09:30 107 16 127/75 (92) 97 30 31/22 (25) 07/01/24 09:15 106 131/75 (93) 98 30 73/56 (62) 07/01/24 09:00 103 13 137/84 (101) 97 30 113/87 (96) 07/01/24 08:30 80 18 129/67 (87) 99 07/01/24 08:15 97.7 75 18 127/66 99 Ventilator 30 07/01/24 08:15 75 18 127/66 (86) 99 07/01/24 08:00 30 07/01/24 08:00 97.7 75 18 128/67 (87) 100 07/01/24 08:00 100 Ventilator+ 30 07/01/24 07:45 74 18 120/65 (83) 99 07/01/24 07:30 59 18 105/55 (72) 99 07/01/24 07:15 62 18 108/57 (74) 98 07/01/24 07:00 73 18 124/65 (84) 99 30 07/01/24 06:52 76 30 07/01/24 06:45 72 18 125/64 (84) 99 30 07/01/24 06:30 68 18 120/62 (81) 100 30 07/01/24 06:15 70 18 124/65 (84) 100 30 07/01/24 06:00 67 18 120/63 (82) 100 30 07/01/24 05:45 59 18 109/57 (74) 100 30 07/01/24 05:30 65 18 114/60 (78) 100 30 07/01/24 05:15 68 18 116/61 (79) 99 30 07/01/24 05:00 66 18 115/60 (78) 99 30 07/01/24 04:45 69 18 117/61 (79) 98 30 07/01/24 04:30 68 18 114/60 (78) 97 30 07/01/24 04:15 67 18 114/59 (77) 98 30 07/01/24 04:00 30 07/01/24 04:00 71 18 117/61 (79) 97 30 LABS: Hematology Labs: Test 07/01/24 04:32 Range/Units White Blood Count 17.9 #H 4.8-10.8 K/uL Red Blood Count 3.11 L 4.00-5.50 MIL/uL Hemoglobin 9.1 L 12.0-16.0 g/dL Hematocrit 27.1 L 36-48 % Mean Corpuscular Volume 87.1 79-99 fL Mean Corpuscular Hemoglobin 29.3 27.0-33.0 pg Mean Corpuscular Hemoglobin Concent 33.6 32.0-36.0 g/dL Red Cell Distribution Width 16.2 H 11.0-15.5 % Platelet Count 68 L 130-400 K/uL Mean Platelet Volume 10.7 H 7.5-10.5 fL Immature Granulocyte % (Auto) 3.0 H 0-1 % Neutrophils (%) (Auto) 90.0 H 40.0-77.0 % Lymphocytes (%) (Auto) 3.3 L 21.0-51.0 % Monocytes (%) (Auto) 3.4 3.0-13.0 % Eosinophils (%) (Auto) 0.1 0.0-8.0 % Basophils (%) (Auto) 0.2 0.0-5.0 % Neutrophils # (Auto) 16.1 H 1.8-7.7 K/uL Lymphocytes # (Auto) 0.6 L 1.0-4.8 K/uL Monocytes # (Auto) 0.6 0.1-1.0 K/uL Eosinophils # (Auto) 0.01 0.00-0.70 K/uL Basophils # (Auto) 0.03 0.00-0.20 K/uL Absolute Immature Granulocyte (auto 0.53 0-1 K/uL Nucleated Red Blood Cells 0.0 0.0-0.19 % White Cell Morphology Comment See comments Platelet Morphology Comment See comments Chemistry Labs: Test 07/01/24 11:35 07/01/24 04:32 06/29/24 12:30 Range/Units Whole Blood Glucose 149 H 70-110 MG/DL Sodium Level 129 L 136-145 mmol/L Potassium Level 3.5 3.5-5.1 mmol/L Chloride Level 95 L 101-111 mmol/L Carbon Dioxide Level 31 21-32 mmol/L Blood Urea Nitrogen 65 H 7-18 mg/dL Creatinine 1.2 H 0.5-1.0 mg/dL Glomerular Filtration Rate Calc 48 >90 mL/min Random Glucose 169 H 70-105 mg/dL Total Calcium 7.0 L 8.5-10.1 mg/dL Magnesium Level 1.70 L 1.80-2.40 mg/dL Total Bilirubin 0.6 0.2-1.0 mg/dL Aspartate Amino Transf (AST/SGOT) 9 L 10-37 U/L Alanine Aminotransferase (ALT/SGPT) 8 L 12-78 U/L Alkaline Phosphatase 206 H 50-136 U/L Total Protein 3.9 L 6.0-8.3 g/dL Albumin 1.6 L 3.5-5.0 g/dL Iron Level 109 # 50-170 mcg/dL Total Iron Binding Capacity 125 L 250-450 mcg/dL Percent Iron Saturation 87.2 H 22-44 % DIAGNOSTICS / RADIOLOGY RESULTS: [ ] IMAGING REPORT Signed PATIENT: JOSÉ MIGUEL OSORIO MR#: [id number] : 1950 SEX: F AGE: 73 LOCATION: [facility] ORDER 99 STATUS: ADM IN REPORT#: [id number] SERVICE [id number] REASON: PNA ORDERING PHYSICIAN: JOSE SPENCER NP PROCEDURE: CXR1VW - CHEST 1VW Exam Type: CHEST 1VW Clinical Information: PNA Comparison: None Findings: Pulmonary pattern is as before. No worrisome interval changes have taken place. Impression: Stable exam. DICTATED BY: NGOC ELIZABETH MD DATE: 06/30/241019 ELECTRONICALLY SIGNED BY: NGOC ELIZABETH MD DATE: 06/30/24 102 PLAN Plan to go back to OR for closure. NEURO: Minimize central acting medications as possible. Fall Precautions. Well lighted room through the day and minimize interruptions through the night to prevent acute delirium. PULMONARY: Supplemental 02 as needed Titrate Fio2 to keep Spo2 > or = 90% DuoNebs and CPT as needed IS hourly while awake for pulmonary hygiene Manage vent per abg ABG CARDIOVASCULAR: Follow hemodynamics. Titrate vasopressor to keep MAP >65 or systolic blood pressure >95mmHg Cardiac monitoring DIPS: Versed Fentanyl Lasix LINES: Right upper arm PICC line Right groin A-line LUE PICC Line GI & NUTRITION: NPO Aspirations precautions Prokinetic agents and laxatives as needed TPN KIDNEYS & ELECTROLYTES: Strict monitoring of intake and output Daily weights Avoid nephrotoxic agents Monitor electrolytes and replace as needed Goal urine output of 30mL/hr or 0.5mL/kg/hr ENDOCRINE: Maintain blood glucose between 100-180 at all times. Insulin sliding scale for blood glucose management INFECTIOUS DISEASE: Trend temperature. Clarke-culture if febrile. Micro: 06/24/2024: E coli in the urine. 06/25/2024: Peritoneal fluid positive for bacteroides uniformis and E coli. 06/25/2024: E coli of the sputum Antibiotics: Ceftazidime, Flagyl and fluconazole. HEMATOLOGY & COAGULATION: Monitor H&H. Keep Hgb > 7 Transfuse 1 unit of PRBC for Hgb < 7 Transfuse 1 pack of platelets of platelets < 20, 000 Watch for any signs and symptoms of bleeding SKIN: Pressure ulcer prevention per facility protocol Rehab: PT/OT Prophylaxis: GI: Protonix IV DVT: Bilateral SCDs Code Status: Full Resuscitation Disposition: ICU Other: I personally spent 40 minutes of critical care time in treatment of this patient. This includes patient management, time at bedside, time reviewing tests, labs, appropriate images and studies, documentation, and patient care coordination. This time excludes separately billable procedures. 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
--- NOTE | 2024-07-01 12:08 | PN ---
[facility] PROGRESS NOTE Date of Service: Jul 01, 2024 Time of Service: 12:08 SUBJECTIVE: Ms. Chandler is a 73-year-old female, with a past medical history of hypertension, hypothyroidism, DM, anemia, fibromyalgia, recurrent SpO2 is, chronic left hip pain, cervical CA presented to the ER with the complaints of sharp CBC left lower quadrant abdominal pain with nausea and vomiting since 2 days. Initial vitals blood pressure 62/50 which improved on Levophed. Initial labs WBCs 26.3, lactic acid 6.7. CT abdomen/pelvis resulted in Large amount of free abdominal air is seen concerning for bowel perforation. Surgery consult was obtained. 06/23/2024 postop patient is seen and examined at the bedside. She is sedated on Diprivan and intubated. She underwent exploratory laparotomy 06/23/24 Dr. Valenzuela for perforated small bowel and subsequent peritonitis this morning. Vitals blood pressure 104/58, heart rate 146 on Phenylephrine and vasopressin. Labs WBC 37.4, BUN 2 , creatinine 1.7, magnesium 0.90, TSH 16.6. Lactic acid improved from 7.7- 5. Urinalysis positive for leukocyte esterase. Chest x-ray revealed prominent bilateral interstitial markings. 06/24/2024 Patient is seen at the bedside. She is currently sedated on fentanyl and midazolam. Vitals blood pressure 131/72 on vasopressin. Currently intubated with VT 450, peep 5 and respiratory rate 14. Labs WBC improved from 31.5-26.7, hemoglobin 11.2, BUN 25 , creatinine 2 , lactic acid 10.3. Urine culture resulted in E coli. 06/25/2024 Patient is seen at the bedside. She remains intubated and sedated on fentanyl and midazolam. Vitals blood pressure in 110s/60s. Labs WBC improved from 26.7-11.2, hemoglobin 10.3, BUN 26, creatinine improved from 2-1.5, lactic acid improved from 4.5-3.5. Urine culture, respiratory culture and abdominal site culture resulted in E coli organism. 06/26/24 patient remains sedated and intubated. She has gone down to OR for extensive abdominal surgery 06/27/24 Patient is mechanical ventilated and remains sedated. Patient is off pressors at this time. Patient is status post exploratory laparotomy on 06/22/2024 and right transverse colon resection with anastomosis and wound VAC placement as well as right colostomy and left urostomy day # 1. Patient is afebrile this morning, temperature is 98.2 and the WBC is 6.1. Patient has received 2 units of PRBC throughout the night and this morning for hemoglobin of 6.4 and will receive 1 unit of platelets for platelet level of 34. The linezolid was discontinued yesterday. Patient continues on ceftazidime, metronidazole and fluconazole 06/28/24 patient was seen and examined she remains on mechanical ventilation and sedated. Patient was requiring multiple transfusion products including both platelets and PRBCs. DIC? Who we will consult Hematology 06/29/2024 Patient is seen at the bedside. She remains sedated on fentanyl and midazolam and intubated, NG tube in place. Her blood pressure is ranging in between 130/70s to 140/70s. She is currently not on any vasopressors. Labs hemoglobin 11.1, platelets 134 post 2 unit PRBC and 4 platelet transfusions yesterday. Sodium 130, chloride 96, BUN 45, creatinine 1.3, BNP of 1430. Urinary output is 550m L. She is currently on Lasix drip at the rate of 5 mL/hour. Plan for wound closure by surgery consult tomorrow. 06/30/2024 Patient is seen at the bedside. She remains sedated on Versed and fentanyl. Intubated with VT 450, RR 18, FiO2 30%. Blood pressure ranging in 150s/70s, not on any vasopressors. Urine output of 1.2 L, on Lasix drip. WBC increased from 9.7-12.8, hemoglobin 10.3, platelet 85, BUN 57, creatinine improved from 1.3-1.2, phosphatase 248, albumin 1.4. Patient had undergone wound closure by surgery consult today. Chest x-ray revealed stable pulmonary pattern with no worrisome interval changes. 07/01 patient is seen and examined at bedside, remains in the ICU, patient with a acute bowel perforation with subsequent peritonitis, status post exploratory laparotomy 06/23/2024 by General surgery with a culture positive for E coli. Patient is status post repeat exploratory laparotomy 06/26/2024 with small bowel anastomosis, right colon and transfer colon resection, colostomy creation, ileostomy tube placement and wound VAC placement. Patient is status post wound closure and 2nd ZAIDA to abdomen on 06/30/2024. During my visit patient is off sedation, minimal withdrawal to painful stimulation, eyes open, remains intubated, on mechanical ventilation. Remains on Lasix drip. Getting broad- spectrum IV antibiotics. On low-dose Precedex. REVIEW OF SYSTEMS: Not able to get a proper history as the patient is sedated CONSTITUTIONAL: Denies fevers, chills, or night sweats. No unintentional weight loss reported. NEUROLOGICAL: Denies headache, amaurosis fugax, motor weakness, sensory deficit, vertigo/spinning sensation, gait abnormalities, or tremors. ENT: No hearing loss, otalgia, otorrhea, rhinitis, rhinorrhea, hoarseness, or sore throat. CARDIOVASCULAR: Denies any exertional angina, dyspnea on exertion, orthopnea, paroxysmal nocturnal dyspnea, palpitations, life-threatening arrhythmias, claudication. PULMONARY: Denies any shortness of breath, cough, phlegm/sputum, hemoptysis, pleuritic chest pain. SLEEP: Denies morning headaches, daytime somnolence or napping. Denies difficulty falling asleep, staying asleep, waking from sleep. Denies knowledge of snoring. GASTROINTESTINAL: Denies any type of dysphagia to either liquids or solids. Denies nausea, vomiting, pyrosis, early satiety, abdominal pain, diarrhea, constipation, or changes in stool consistency or caliber. Denies coffee-ground emesis, hematemesis, hematochezia, or melanotic stools. GENITOURINARY: Denies frequency, urgency, nocturia, hematuria or incontinence (Storage/Irritative symptoms.) Low urinary stream, straining to void, urinary intermittency or hesitancy, splitting of the voiding stream, terminal dribbling. ENDOCRINOLOGIC: Denies polyuria, polydipsia, polyphagia or heat/cold intolerances. HEMATOLOGIC: Denies thrombophilia/previous clots, or coagulopathy/bleeding disorders. ONCOLOGIC: Denies personal history of malignancy. DERMATOLOGIC: Denies rashes or pruritus. PSYCHIATRIC: Denies any suicidal or homicidal ideation. Denies hallucinations. PHYSICAL EXAM GENERAL APPEARANCE: The patient is sedated, intubated NEUROLOGICAL: Cranial nerves II-XII grossly intact. Motor is 5/5 in bilateral upper and lower extremities proximal to distal. No sensory deficits. HEENT: Face is symmetric. Pupils are equal and reactive. Extraocular movements are intact. NECK: Supple. No JVD. No thyromegaly. No submental, submandibular, pre- /postauricular, occipital or supraclavicular lymphadenopathy. CHEST: Normal chest expansion. No Telemetry. LUNGS: Absence of any rales, rhonchi or any wheezing. CARDIOVASCULAR: Regular. S1 and S2 normal. No appreciable rubs, murmurs or gallops. ABDOMEN: Soft, nontender, and nondistended. There is no rebound, voluntary g uarding, or rigidity. : Deferred. No Hearn. EXTREMITIES: No clubbing. Bilateral lower extremity edema Good capillary refill. SKIN: Sacral ulcer, No skin breakdown. Vital Signs (last 8hr) Date Time Temp Pulse Resp B/P (MAP) Pulse Ox O2 Delivery O2 Flow Rate FiO2 07/01/24 10:30 111 20 140/80 (100) 98 30 07/01/24 10:15 107 18 122/77 (92) 97 30 07/01/24 10:00 109 18 122/79 (93) 97 30 21/19 (20) 07/01/24 09:51 108 30 07/01/24 09:45 111 10 120/79 (93) 95 30 24/20 (21) 07/01/24 09:30 107 16 127/75 (92) 97 30 31/22 (25) 07/01/24 09:15 106 131/75 (93) 98 30 73/56 (62) 07/01/24 09:00 103 13 137/84 (101) 97 30 113/87 (96) 07/01/24 08:30 80 18 129/67 (87) 99 07/01/24 08:15 97.7 75 18 127/66 99 Ventilator 30 07/01/24 08:15 75 18 127/66 (86) 99 07/01/24 08:00 30 07/01/24 08:00 97.7 75 18 128/67 (87) 100 07/01/24 08:00 100 Ventilator+ 30 07/01/24 07:45 74 18 120/65 (83) 99 07/01/24 07:30 59 18 105/55 (72) 99 07/01/24 07:15 62 18 108/57 (74) 98 07/01/24 07:00 73 18 124/65 (84) 99 30 07/01/24 06:52 76 30 07/01/24 06:45 72 18 125/64 (84) 99 30 07/01/24 06:30 68 18 120/62 (81) 100 30 07/01/24 06:15 70 18 124/65 (84) 100 30 07/01/24 06:00 67 18 120/63 (82) 100 30 07/01/24 05:45 59 18 109/57 (74) 100 30 07/01/24 05:30 65 18 114/60 (78) 100 30 07/01/24 05:15 68 18 116/61 (79) 99 30 07/01/24 05:00 66 18 115/60 (78) 99 30 07/01/24 04:45 69 18 117/61 (79) 98 30 07/01/24 04:30 68 18 114/60 (78) 97 30 07/01/24 04:15 67 18 114/59 (77) 98 30 LABS: Laboratory: Test 07/01/24 11:35 07/01/24 04:32 06/30/24 11:57 06/29/24 12:30 Range/Units Whole Blood Glucose 149 H 70-110 MG/DL White Blood Count 17.9 #H 4.8-10.8 K/uL Red Blood Count 3.11 L 4.00-5.50 MIL/uL Hemoglobin 9.1 L 12.0-16.0 g/dL Hematocrit 27.1 L 36-48 % Mean Corpuscular Volume 87.1 79-99 fL Mean Corpuscular Hemoglobin 29.3 27.0-33.0 pg Mean Corpuscular Hemoglobin Concent 33.6 32.0-36.0 g/dL Red Cell Distribution Width 16.2 H 11.0-15.5 % Platelet Count 68 L 130-400 K/uL Mean Platelet Volume 10.7 H 7.5-10.5 fL Immature Granulocyte % (Auto) 3.0 H 0-1 % Neutrophils (%) (Auto) 90.0 H 40.0-77.0 % Lymphocytes (%) (Auto) 3.3 L 21.0-51.0 % Monocytes (%) (Auto) 3.4 3.0-13.0 % Eosinophils (%) (Auto) 0.1 0.0-8.0 % Basophils (%) (Auto) 0.2 0.0-5.0 % Neutrophils # (Auto) 16.1 H 1.8-7.7 K/uL Lymphocytes # (Auto) 0.6 L 1.0-4.8 K/uL Monocytes # (Auto) 0.6 0.1-1.0 K/uL Eosinophils # (Auto) 0.01 0.00-0.70 K/uL Basophils # (Auto) 0.03 0.00-0.20 K/uL Absolute Immature Granulocyte (auto 0.53 0-1 K/uL Nucleated Red Blood Cells 0.0 0.0-0.19 % White Cell Morphology Comment See comments Platelet Morphology Comment See comments Sodium Level 129 L 136-145 mmol/L Potassium Level 3.5 3.5-5.1 mmol/L Chloride Level 95 L 101-111 mmol/L Carbon Dioxide Level 31 21-32 mmol/L Blood Urea Nitrogen 65 H 7-18 mg/dL Creatinine 1.2 H 0.5-1.0 mg/dL Glomerular Filtration Rate Calc 48 >90 mL/min Random Glucose 169 H 70-105 mg/dL Total Calcium 7.0 L 8.5-10.1 mg/dL Magnesium Level 1.70 L 1.80-2.40 mg/dL Total Bilirubin 0.6 0.2-1.0 mg/dL Aspartate Amino Transf (AST/SGOT) 9 L 10-37 U/L Alanine Aminotransferase (ALT/SGPT) 8 L 12-78 U/L Alkaline Phosphatase 206 H 50-136 U/L Total Protein 3.9 L 6.0-8.3 g/dL Albumin 1.6 L 3.5-5.0 g/dL Blood Gas Specimen Type Arterial Arterial Blood pH 7.492 H 7.350-7.450 Arterial Blood Partial Pressure CO2 34 32-45 mmHg Arterial Blood Partial Pressure O2 72.2 L 83.0-108.0 mmHg Arterial Blood HCO3 25.4 21.0-28.0 mmol/L Arterial Blood Oxygen Saturation 94.6 94.0-98.0 % Arterial Blood Base Excess 2.3 -2.0-3.0 mmol/L Hemoglobin (Blood Gas) 10.4 L 12.0-16.0 g/dL Sodium (Blood Gas) 127 L 136-145 MMOL/L Bedside Potassium (Blood Gas) 3.3 L 3.4-4.5 MMOL/L Bedside Chloride (Blood Gas) 94 L 98-107 MMOL/L Bedside Glucose (Blood Gas) 117 H 65-95 MG/DL Bedside Ionized Calcium (Blood Gas) 1.00 L 1.15-1.33 MMOL/L Bedside Lactic Acid (Blood Gas) 1.22 H 0.36-0.75 MMOL/L Blood Gas Temperature 37.0 35.5-37.0 CELSIUS Blood Gas Respiration Rate 18.0 min. Blood Gas Vent Mode SAYRA LUNDBERG RN ROOM AIR FiO2 30.0 % Blood Gas Tidal Volume 450 ml Blood Gas PEEP 5 cm H2O Blood Gas Specimen Comment KADE Iron Level 109 # 50-170 mcg/dL Total Iron Binding Capacity 125 L 250-450 mcg/dL Percent Iron Saturation 87.2 H 22-44 % Current Medications Medications (Trade) Dose Ordered Sig/Dionisio Route PRN Reason Start Time Stop Time Status Last Admin Dose Admin Acetaminophen (TYLenol 325MG TAB) 650 mg Q4H PRN PO TEMPERATURE GREATER THAN 101.5 06/23/24 03:30 07/23/24 03:29 Acetaminophen (TYLenol 650MG SUPPOSITORY) 650 mg Q6H PRN RC MILD PAIN (1-3) 06/22/24 20:30 07/22/24 20:29 Albumin Human 50 ml @ 0 mls/hr AD IV 06/26/24 17:30 06/26/24 17:32 DC Albumin Human 100 ml @ 0 mls/hr Q6H IV 07/01/24 12:00 07/03/24 11:59 Albumin Human 100 ml @ 0 mls/hr Q6H6 IV 06/23/24 00:00 06/23/24 12:52 DC Albumin Human 250 ml @ 400 mls/hr AD IV 06/26/24 17:30 06/27/24 18:03 DC 06/26/24 17:36 400 MLS/HR Albumin Human 250 ml @ 0 mls/hr AD IV 06/23/24 11:30 06/24/24 11:29 DC 06/24/24 13:26 400 MLS/HR Albumin Human 250 ml @ 0 mls/hr AD IV 06/24/24 12:00 06/24/24 13:21 DC Aminocaproic Acid 47898 mg/Sodium Chloride 500 ml @ 0 mls/hr AD IV 06/27/24 19:30 06/27/24 18:37 DC Artificial Tears (Artificial Tears) 1 DROP BID OU 06/24/24 21:00 07/24/24 20:59 07/01/24 10:17 1 DROP Calcium Gluconate 1 gm/Sodium Chloride 100 ml @ 0 mls/hr PROTOCOL IV 06/29/24 08:30 07/29/24 08:29 Calcium Gluconate 1 gm/Sodium Chloride 100 ml @ 0 mls/hr PROTOCOL IV 06/26/24 16:00 06/29/24 08:10 DC 06/26/24 16:57 400 MLS/HR Calcium Gluconate 2 gm/Sodium Chloride 120 ml @ 120 mls/hr PROTOCOL PRN IV WHEN 2G DOSE IS NEEDED 06/28/24 00:30 07/28/24 00:29 06/28/24 01:06 120 MLS/HR Cefepime HCl (MAXipime 2 gm vial) 2 gm Q12H IVPB 06/22/24 21:00 06/23/24 03:25 DC 06/22/24 22:03 2 GM Cefepime HCl (MAXipime 2 gm vial) 2 gm Q24H IVPB 06/23/24 21:00 06/23/24 21:47 DC 06/23/24 21:15 2 GM Ceftazidime (ForTAZ/TAZidime) 1 gm Q24H IVPB 06/24/24 01:30 07/04/24 01:29 07/01/24 01:30 1 GM Dexmedetomidine/ Sodium Chloride (PRECEdex 200MCG/ 50ML-NS) 200 mcg PROTOCOL IV 07/01/24 12:00 07/31/24 11:59 Enoxaparin Sodium (Lovenox) 30 mg DAILY SQ 06/23/24 09:00 06/30/24 09:13 DC 06/25/24 07:35 30 MG Fat Emulsion Intravenous 250 ml @ 42 mls/hr DAILY10 IV 06/24/24 10:00 06/24/24 13:22 DC 06/24/24 10:07 42 MLS/HR Fat Emulsion Intravenous 250 ml @ 42 mls/hr MoWeFr IV 06/29/24 20:18 07/29/24 20:17 Cancel Fat Emulsion Intravenous 250 ml @ 42 mls/hr QMOWEFR@1000 IV 06/26/24 10:00 07/24/24 09:59 07/01/24 10:17 42 MLS/HR Fentanyl Citrate 100 ml @ 2.5 mls/hr PROTOCOL IV 06/23/24 09:00 06/26/24 20:27 DC 06/26/24 17:13 2.5 MLS/HR Fentanyl Citrate (FENTanyl CITRate PF 50 MCG/ 1 ML 2ML VIAL) 50 mcg Q4H PRN IVP MODERATE PAIN (4-6) 07/01/24 12:00 07/31/24 11:59 Fentanyl Citrate 2500 mcg/Sodium Chloride 250 ml @ 0 mls/hr AD PRN IV TITRATE 06/26/24 20:30 06/26/24 20:41 DC Fentanyl/Sodium Chloride 250 ml @ 0 mls/hr PROTOCOL IV 06/26/24 21:00 07/01/24 20:59 07/01/24 04:55 27.5 MLS/HR Fluconazole/ Sodium Chloride (DiFLUCan 200 MG/ NS 100 ML) 200 mg Q24H IVPB 06/23/24 03:30 07/23/24 03:29 07/01/24 03:15 200 MG Furosemide (LASix 20MG VIAL) 20 mg ONCE STAT IV 06/25/24 15:49 06/25/24 15:50 DC 06/25/24 16:11 20 MG Furosemide (LASix 20MG VIAL) 20 mg Q8H IV 06/25/24 17:30 06/27/24 17:29 DC 06/27/24 10:01 20 MG Furosemide (LASix 20MG VIAL) 20 mg Q8H IV 06/28/24 20:00 06/29/24 10:14 DC 06/29/24 03:04 20 MG Furosemide 100 mg/ Sodium Chloride 100 ml @ 0 mls/hr PROTOCOL IV 06/29/24 10:30 07/29/24 10:29 07/01/24 03:13 10 MLS/HR Furosemide 100 mg/ Sodium Chloride 100 ml @ 0 mls/hr PROTOCOL IV 06/23/24 12:00 06/23/24 12:44 DC 06/23/24 11:37 5 MLS/HR Heparin Sodium (Porcine) (HEParin 5,000 UNIT VIAL) 5,000 unit BID SQ 06/22/24 21:00 06/22/24 20:48 DC Hydrocortisone Sodium Succinate (Solu-corTEF 100MG) 25 mg Q12H IV 06/26/24 14:00 07/23/24 08:59 07/01/24 01:31 25 MG Hydrocortisone Sodium Succinate (Solu-corTEF 100MG) 50 mg Q6H6 IV 06/23/24 09:00 06/26/24 13:48 DC 06/26/24 05:33 50 MG Hydromorphone HCl (DiLAUDid 1MG INJ) 1 mg Q3H3 PRN IVP SEVERE PAIN (7-10) 06/23/24 03:30 06/28/24 03:29 DC Insulin Human Regular (humuLIN R 100 UNIT/ML 3ML) INSULIN SLIDING SCAL... ACHS SQ 06/29/24 21:00 07/29/24 20:59 06/30/24 20:54 2 UNIT Insulin Human Regular (humuLIN R 100 UNIT/ML 3ML) INSULIN SLIDING SCAL... ACHS SQ 06/22/24 21:00 06/24/24 15:37 DC 06/24/24 10:09 6 UNIT Insulin Human Regular (humuLIN R 100 UNIT/ML 3ML) INSULIN SLIDING SCAL... Q6H6 SQ 06/24/24 18:00 06/25/24 06:25 DC 06/24/24 23:32 7 UNIT Insulin Human Regular 100 unit/ Sodium Chloride 100 ml @ 0 mls/hr AD IV 06/25/24 06:30 07/02/24 06:29 06/28/24 01:08 3 MLS/HR Ketorolac Tromethamine (toRADol) 15 mg Q6H PRN IV MODERATE PAIN (4-6) 06/23/24 03:30 06/27/24 18:23 DC Lactated Ringer's 1,000 ml @ 40 mls/hr Q24H IV 06/26/24 20:30 07/26/24 20:29 06/30/24 17:48 40 MLS/HR Lactated Ringer's 1,000 ml @ 125 mls/hr Q8H IV 06/22/24 20:30 06/23/24 12:44 DC 06/23/24 11:23 125 MLS/HR Lactated Ringer's (Lactated Ringers 1000ml) 500 ml BOLUS IV 06/23/24 05:30 06/24/24 13:22 DC Linezolid 300 ml @ 150 mls/hr Q12H IV 06/23/24 15:00 06/26/24 10:34 DC 06/26/24 03:27 150 MLS/HR Magnesium Sulfate 50 ml @ 0 mls/hr PROTOCOL IV 06/23/24 04:30 07/23/24 04:29 06/27/24 06:31 25 MLS/HR Magnesium Sulfate (Magnesium 4gm Premix 100ml) 4 gm AD IV 06/23/24 05:30 06/23/24 05:59 DC Metoprolol Tartrate (loprESSOR) 5 mg ONCE IV 06/26/24 17:00 06/26/24 21:30 DC 06/26/24 17:28 5 MG Metronidazole/ Sodium Chloride 100 ml @ 100 mls/hr Q8H6 IVPB 06/23/24 14:00 07/03/24 13:59 07/01/24 05:33 100 MLS/HR Midazolam HCl 100 ml @ 0 mls/hr AD PRN IV TITRATE 06/23/24 22:00 07/23/24 21:59 06/30/24 19:17 7 MLS/HR Morphine Sulfate (morPHINE 2MG SYG) 2 mg Q4H PRN IVP SEVERE PAIN (7-10) 06/22/24 20:30 06/23/24 03:21 DC Multivitamins/ Minerals 10 ml/ Amino Acids/ Electrolytes/ Dextrose 2,000 ml @ 83 mls/hr AD IV 06/26/24 20:30 06/27/24 18:02 DC 06/26/24 21:58 83 MLS/HR Norepinephrine 250 ml @ 0 mls/hr PROTOCOL IV 06/22/24 19:30 06/23/24 03:51 DC 06/22/24 20:15 45 MLS/HR Norepinephrine Bitartrate 32 mg/ Sodium Chloride 250 ml @ 0 mls/hr Q0M STAT IV 06/23/24 03:47 06/23/24 03:52 DC 06/23/24 07:22 32.8 MLS/HR Ondansetron HCl (zoFRAN 4MG INJ) 4 mg Q6H PRN IV NAUSEA/VOMITING 06/22/24 20:30 07/22/24 20:29 Ondansetron HCl (zoFRAN 4MG INJ) 4 mg Q6H PRN IVP NAUSEA/VOMITING 06/23/24 03:30 06/23/24 03:18 DC Pantoprazole Sodium (PROTonix 40MG INJ) 40 mg BID IVP 06/23/24 09:00 07/23/24 08:59 07/01/24 10:16 40 MG Pantoprazole Sodium (PROTonix 40MG INJ) 40 mg DAILY IV 06/23/24 09:00 06/23/24 03:19 DC Pharmacy Profile Note (Lace Assessment) 1 each AD MISC 06/24/24 14:00 06/24/24 13:53 DC Pharmacy Profile Note (Pharmacy Communication) 1 each ONCE MISC 06/23/24 14:00 06/23/24 13:46 DC Pharmacy Profile Note (Pharmacy Communication) 1 each ONCE MISC 06/27/24 19:00 06/27/24 18:50 DC Pharmacy Profile Note (Pharmacy Communication) 1 each ONCE STAT MISC 06/25/24 17:11 06/26/24 15:42 DC Phenylephrine HCl 100 mg/Sodium Chloride 250 ml @ 0 mls/hr PROTOCOL IV 06/23/24 08:30 07/23/24 08:29 06/23/24 13:00 32.67 MLS/HR Piperacillin Sod/ Tazobactam Sod (Zosyn 3.375gm+NS 50ml) 3.375 gm Q8H IVPB 06/23/24 03:30 06/23/24 04:34 DC Potassium Chloride 100 ml @ 50 mls/hr AD PRN IV POTASSIUM PROTOCOL 06/23/24 05:30 07/23/24 05:29 06/30/24 13:50 50 MLS/HR Propofol (DIPRivan 1000MG/ 100ML) 1,000 mg PROTOCOL PRN IV SEDATION 06/23/24 03:30 07/23/24 03:29 06/23/24 04:06 1,000 MG Sodium Bicarbonate 150 meq/Dextrose 1,150 ml @ 50 mls/hr Q23H IV 06/26/24 23:00 06/26/24 22:55 DC Sodium Bicarbonate 150 meq/Dextrose 1,150 ml @ 50 mls/hr Q23H IVP 06/23/24 13:00 06/25/24 17:25 DC 06/24/24 19:34 50 MLS/HR Sodium Bicarbonate 150 meq/Dextrose 1,150 ml @ 50 mls/hr Q23H IVP 06/26/24 23:00 06/27/24 17:57 DC 06/27/24 00:56 50 MLS/HR Sodium Bicarbonate 150 meq/Sodium Chloride 1,150 ml @ 50 mls/hr Q23H IVP 06/25/24 17:30 06/25/24 17:52 DC 06/25/24 17:42 50 MLS/HR Sodium Bicarbonate 150 meq/Sterile Water 1,150 ml @ 50 mls/hr Q23H IVP 06/25/24 18:00 06/26/24 14:36 DC 06/25/24 18:18 50 MLS/HR Sodium Chloride 1,000 ml @ 0 mls/hr Q0M IV 06/23/24 12:00 07/23/24 11:59 06/23/24 15:43 1,000 MLS/HR Sodium Chloride (NS 50ml) 50 ml AD IV 06/23/24 03:30 06/23/24 03:26 DC Vasopressin 20 units/Sodium Chloride 100 ml @ 0 mls/hr PROTOCOL IV 06/22/24 20:30 07/22/24 20:29 06/24/24 08:43 6 MLS/HR DIAGNOSTICS / RADIOLOGY: [ ] ASSESSMENT: PLAN: Acute hypoxic Respiratory failure POA Acute encephalopathy, in the setting of severe sepsis POA Acute bowel perforation with subsequent peritonitis s/p exploratory laparotomy 06/23/24 Dr. Valenzuela POA Culture + E-coli. Repeat exploratory laparotomy on 10/2024 with small bowel anastomosis, right colon and transverse colon resection, colostomy creation, ileostomy tube placement and wound VAC placement. S/P wound closure and 2 ZAIDA to abdomen on 06/30/24 Shock etiology sepsis POA Suspected intraabdominal hemorrhage Urinary tract infection, POA E-coli multisensitive Pneumonitis, culture + for E-coli Acute kidney injury, POA Lactic acidosis, POA Acute blood loss anemia Thrombocytopenia Chronic debility, POA DM type 2, POA GERD, POA History small-bowel obstruction History of fibromyalgia History of hypertension, now hypotensive in the setting of septic shock versus hemorrhagic shock PLAN: Patient remains admitted to the ICU Patient with a Acute bowel perforation with subsequent peritonitis s/p exploratory laparotomy 06/23/24 Dr. Bianca PRAKASH Culture + E-coli. Repeat exploratory laparotomy on 06/26/2024 with small bowel anastomosis, right colon and transverse colon resection, colostomy creation, ileostomy tube placement and wound VAC placement. S/P wound closure and 2 ZAIDA to abdomen on 06/30/24 Remains intubated, on mechanical ventilation. Wean as tolerated Continue Lasix drip Continue broad-spectrum IV antibiotics Continue to follow surgical input and recommendations Continue to follow critical care input recommendations NEURO: Minimize central acting medications as possible. Fall Precautions. Well lighted room through the day and minimize interruptions through the night to prevent acute delirium. PULMONARY: Supplemental 02 as needed BiPAP as necessary, for respiratory distress Titrate Fio2 to keep Spo2 > or = 90% DuoNebs and CPT as needed IS hourly while awake for pulmonary hygiene prn Out of bed to chair as tolerated Maintain aspiration precautions at all times CARDIOVASCULAR: Follow hemodynamics. Vital signs per facility protocol GI & NUTRITION: Continue nutritional support Aspirations precautions Prokinetic agents and laxatives as needed KIDNEYS & ELECTROLYTES: Strict monitoring of intake and output Daily weights Avoid nephrotoxic agents Monitor electrolytes and replace as needed Goal urine output of 30mL/hr or 0.5mL/kg/hr Medications to be dosed according to renal function. Avoid contrast if possible ENDOCRINE: Maintain blood glucose between 100-180 at all times. Insulin sliding scale for blood glucose management Hypoglycemia and hyperglycemia protocol in place INFECTIOUS DISEASE: Trend temperature, WBC and procalcitonin level Follow cultures, deescalate antibiotics as soon as possible. Panculture if new onset fever HEMATOLOGY & COAGULATION: Monitor H&H. Keep Hgb > 7 Transfuse 1 unit of PRBC for Hgb < 7 Transfuse 1 pack of platelets of platelets < 20, 000 Watch for any signs and symptoms of bleeding SKIN: Pressure ulcer prevention per facility protocol Specialty mattress as needed ORTHO/REHAB Continue PT/OT PRN: MEDICATIONS Tylenol 650 mg po every 4 hrs for fever zofran 4 mg IV every 6 hrs for n/v Hydralazine 5 mg IV every 4 hrs systolic pressure > 160 bowel regiment: lactulose 20 gm PO BID PRN constipation Supportive measures: Continue GI and DVT prophylaxis Disposition: Pending improvement in clinical condition. All questions answered time spent: > 35 min MARTIN GALINDO MD Jul 01, 2024 12:08
[2024-07-01] MEDS: ALBUMIN HUMAN 25% 100 ML IV SCH (12:17)
[2024-07-01 12:23] LABS: INR 1.23 (0.85-1.15); PROTHROMBIN TIME 12.8 SEC (9.6-11.6)
[2024-07-01 12:24] LABS: PARTIAL THROMBOPLASTIN TIME 29.2 SEC (26.3-35.5)
[2024-07-01] MEDS: FENTanyl CITRate PF 50 MCG/1 ML 2ML VIAL IVP PRN (13:02)
[2024-07-01] MEDS: dexmedeTOMIDINE 200MCG/NS 50ML IV SCH (13:29)
--- NOTE | 2024-07-01 13:31 | NUR ---
NOT TOLERATING SIMV MODE- TACHYCARDIA,LOW VOLUME INSPIRATIONS, GASPING PATTERN, HTN. PLACED BACK ON AC SETTINGS. ICU KNIFEMAN AWARE
--- NOTE | 2024-07-01 16:26 | PN ---
INFECTIOUS DISEASE PROGRESS NOTE Date of Service: Jul 01, 2024 SUBJECTIVE: This is a 73-year-old female patient who was seen and examined at bedside in the ICU room 218. Patient is on mechanical ventilation. Patient is status post abdominal wound closure day # 1. Wound VAC in place. Two ZAIDA drains intact. Patient's WBC went up to 17.9 this morning but no reports of fever, temperature is 97.7. Patient is also status post exploratory laparotomy on 06/22/2024 and right transverse colon resection with anastomosis, right colostomy and left urostomy placement on 06/26/2024. Patient continues on ceftazidime, metronidazole and fluconazole. We will continue to follow patient's care. PHYSICAL EXAM EYES: Anicteric. Pupils equal and reactive. HENT: No oral thrush seen, moist Oral mucosa. NECK: Supple, no JVD or thyromegaly. LUNGS: Good air entry. No rales, no rhonchi. Mechanical ventilation. CARDIOVASCULAR: S1, S2 regular. No murmur heard. ABDOMEN: Soft, non tender, bowel sounds present, no organomegaly. Open surgical incision with a wound VAC. Right colostomy. Left Urostomy. ZAIDA drains. CENTRAL NERVOUS SYSTEM: Intubated and sedated. SKIN: No rashes, no swelling. LYMPHATICS: No peripheral lymphadenopathy. MUSCULOSKELETAL: No joint swelling, erythema or tenderness. EXTREMITIES: No cyanosis or clubbing. BACK: No deformity, no pressure ulcer. GENITOURINARY: No dysuria or hematuria. Hearn catheter. Vital Sign (Last 12 Hours) 07/01/24 07/01/24 07/01/24 07/01/24 04:30 04:45 05:00 05:15 Pulse 68 69 66 68 Resp 18 18 18 B/P (MAP) 114/60 (78) 117/61 (79) 115/60 (78) 116/61 (79) Pulse Ox 97 98 99 99 FiO2 30 30 30 30 07/01/24 07/01/24 07/01/24 07/01/24 05:30 05:45 06:00 06:15 Pulse 65 59 67 70 Resp 18 18 18 18 B/P (MAP) 114/60 (78) 109/57 (74) 120/63 (82) 124/65 (84) Pulse Ox 100 100 100 100 FiO2 30 30 30 30 07/01/24 07/01/24 07/01/24 07/01/24 06:30 06:45 06:52 07:00 Pulse 68 72 76 73 Resp 18 18 18 B/P (MAP) 120/62 (81) 125/64 (84) 124/65 (84) Pulse Ox 100 99 99 FiO2 30 30 30 30 07/01/24 07/01/24 07/01/24 07/01/24 07:15 07:30 07:45 08:00 Pulse 62 59 74 Resp 18 18 18 B/P (MAP) 108/57 (74) 105/55 (72) 120/65 (83) Pulse Ox 98 99 99 100 O2 Delivery Ventilator+ FiO2 30 07/01/24 07/01/24 07/01/24 07/01/24 08:00 08:00 08:15 08:15 Temp 97.7 97.7 Pulse 75 75 75 Resp 18 18 18 B/P (MAP) 128/67 (87) 127/66 (86) 127/66 Pulse Ox 100 99 99 O2 Delivery Ventilator FiO2 30 30 07/01/24 07/01/24 07/01/24 07/01/24 08:30 09:00 09:15 09:30 Pulse 80 103 106 107 Resp 18 13 16 B/P (MAP) 129/67 (87) 137/84 (101) 131/75 (93) 127/75 (92) 113/87 (96) 73/56 (62) 31/22 (25) Pulse Ox 99 97 98 97 FiO2 30 30 30 07/01/24 07/01/24 07/01/24 07/01/24 09:45 09:51 10:00 10:15 Pulse 111 108 109 107 Resp 10 18 18 B/P (MAP) 120/79 (93) 122/79 (93) 122/77 (92) 24/20 (21) 21/19 (20) Pulse Ox 95 97 97 FiO2 30 30 30 30 07/01/24 07/01/24 07/01/24 10:30 12:12 14:37 Pulse 111 119 114 Resp 20 B/P (MAP) 140/80 (100) Pulse Ox 98 FiO2 30 30 30 Intake & Output (last 24hrs) 06/30/24 06/30/24 07/01/24 15:00 23:00 07:00 Intake Total 1015.5 ml 1488.0 ml 1497.5 ml Output Total 150 ml 1040 ml 830 ml Balance 865.5 ml 448.0 ml 667.5 ml LABS: Laboratory: Test 07/01/24 11:56 07/01/24 11:35 07/01/24 04:32 06/30/24 11:57 Range/Units Prothrombin Time 12.8 H 9.6-11.6 SEC Prothromb Time International Ratio 1.23 H 0.85-1.15 Activated Partial Thromboplast Time 29.2 26.3-35.5 SEC Fibrinogen 583 *H 180-350 mg/dL Whole Blood Glucose 149 H 70-110 MG/DL White Blood Count 17.9 #H 4.8-10.8 K/uL Red Blood Count 3.11 L 4.00-5.50 MIL/uL Hemoglobin 9.1 L 12.0-16.0 g/dL Hematocrit 27.1 L 36-48 % Mean Corpuscular Volume 87.1 79-99 fL Mean Corpuscular Hemoglobin 29.3 27.0-33.0 pg Mean Corpuscular Hemoglobin Concent 33.6 32.0-36.0 g/dL Red Cell Distribution Width 16.2 H 11.0-15.5 % Platelet Count 68 L 130-400 K/uL Mean Platelet Volume 10.7 H 7.5-10.5 fL Immature Granulocyte % (Auto) 3.0 H 0-1 % Neutrophils (%) (Auto) 90.0 H 40.0-77.0 % Lymphocytes (%) (Auto) 3.3 L 21.0-51.0 % Monocytes (%) (Auto) 3.4 3.0-13.0 % Eosinophils (%) (Auto) 0.1 0.0-8.0 % Basophils (%) (Auto) 0.2 0.0-5.0 % Neutrophils # (Auto) 16.1 H 1.8-7.7 K/uL Lymphocytes # (Auto) 0.6 L 1.0-4.8 K/uL Monocytes # (Auto) 0.6 0.1-1.0 K/uL Eosinophils # (Auto) 0.01 0.00-0.70 K/uL Basophils # (Auto) 0.03 0.00-0.20 K/uL Absolute Immature Granulocyte (auto 0.53 0-1 K/uL Nucleated Red Blood Cells 0.0 0.0-0.19 % White Cell Morphology Comment See comments Platelet Morphology Comment See comments Sodium Level 129 L 136-145 mmol/L Potassium Level 3.5 3.5-5.1 mmol/L Chloride Level 95 L 101-111 mmol/L Carbon Dioxide Level 31 21-32 mmol/L Blood Urea Nitrogen 65 H 7-18 mg/dL Creatinine 1.2 H 0.5-1.0 mg/dL Glomerular Filtration Rate Calc 48 >90 mL/min Random Glucose 169 H 70-105 mg/dL Total Calcium 7.0 L 8.5-10.1 mg/dL Magnesium Level 1.70 L 1.80-2.40 mg/dL Total Bilirubin 0.6 0.2-1.0 mg/dL Aspartate Amino Transf (AST/SGOT) 9 L 10-37 U/L Alanine Aminotransferase (ALT/SGPT) 8 L 12-78 U/L Alkaline Phosphatase 206 H 50-136 U/L Total Protein 3.9 L 6.0-8.3 g/dL Albumin 1.6 L 3.5-5.0 g/dL Blood Gas Specimen Type Arterial Arterial Blood pH 7.492 H 7.350-7.450 Arterial Blood Partial Pressure CO2 34 32-45 mmHg Arterial Blood Partial Pressure O2 72.2 L 83.0-108.0 mmHg Arterial Blood HCO3 25.4 21.0-28.0 mmol/L Arterial Blood Oxygen Saturation 94.6 94.0-98.0 % Arterial Blood Base Excess 2.3 -2.0-3.0 mmol/L Hemoglobin (Blood Gas) 10.4 L 12.0-16.0 g/dL Sodium (Blood Gas) 127 L 136-145 MMOL/L Bedside Potassium (Blood Gas) 3.3 L 3.4-4.5 MMOL/L Bedside Chloride (Blood Gas) 94 L 98-107 MMOL/L Bedside Glucose (Blood Gas) 117 H 65-95 MG/DL Bedside Ionized Calcium (Blood Gas) 1.00 L 1.15-1.33 MMOL/L Bedside Lactic Acid (Blood Gas) 1.22 H 0.36-0.75 MMOL/L Blood Gas Temperature 37.0 35.5-37.0 CELSIUS Blood Gas Respiration Rate 18.0 min. Blood Gas Vent Mode SAYRA LUNDBERG RN ROOM AIR FiO2 30.0 % Blood Gas Tidal Volume 450 ml Blood Gas PEEP 5 cm H2O Blood Gas Specimen Comment KADE ASSESSMENT: Nontraumatic intestinal perforation, s/p exploratory laparotomy on 06/22/2024, right transverse colon resection with anastomosis right colostomy and left urostomy on 06/26/2024 and s/p abdominal wound closure on 06/30/2024. Generalized peritonitis with E coli. Septic shock. Leukocytosis, resolving. Urinary tract infection with E coli. Thrombocytopenia, requiring platelet transfusion. Postoperative anemia requiring blood transfusion. Acute on chronic renal failure, resolving. Generalized edema. PLAN: Continues on ceftazidime. Continue on fluconazole. Continue on metronidazole IV. Continue GI prophylaxis. Continue critical care support. Continue vasopressor support. Continue mechanical ventilation. Avoid nephrotoxic medications. Continues on furosemide drip. Continue colostomy and urostomy care. This case was reviewed and discussed with my supervising physician and the above assessment and plan was formulated and agreed upon. ATTESTATION BY PHYSICIAN I have seen and examined the patient. I reviewed the documentation, medical decision making, and treatment plan as noted by the mid-level provider above. I agree with the findings and plan of care. GOSIA INIGUEZ MD, MIRTA L ASE CERTIFIED TECHNICIAN Jul 01, 2024 16:26
--- NOTE | 2024-07-01 17:19 | NUR ---
Nutritional f/u Note: Chart, meds, and labs Reviewed. Patient continues on mechanical ventilation. Patient is status post abdominal wound closure day # 1. Wound VAC in place, as per MD. Abnormal nutrition related labs: na 129, cl 95, bun 65, crea 1.2, mg 1.70, alk phos 206, alb 1.6 Recommend: -Continue TPN consider CLinimix 5/15% via central line at a rate of 83ml/hr, Include 10ml adult MVI and 3ml trace elements. -Lipid emulsion x 3 weekly M, W, F to prevent essential fatty acid deficiency -Check folate, iron, vit b12, and Vit D levels to rule out deficiencies. Per research low vitamin D may contribute to insulin resistance + vit. D deficiency may impair wound healing. -Check fasting Lipid Panel to evaluate cholesterol levels -Adjust TPN regimen as needed based on labs, tolerance and wound healing. -Transition to enteral feeding as soon as gut function allows -Correct electrolytes -Zinc Sulfate 220mg BID, Vit C 500mg BID, and MVI -RD to provide further recommendations based on clinical progress. -Monitor feeding tolerance, %, wt, and labs -If No BM >3days consider bowel stimulant. - Please notify RD if additional nutrition concerns arise. Addendum: 07/01/24 at [address] Amended: Links added.
--- NOTE | 2024-07-01 19:30 | NUR ---
HAND OFF REPORT GIVEN TO INGE BRUSH
[2024-07-01 22:38] LABS: HEMATOCRIT 40.9 % (36-48)
[2024-07-02] VITALS (53 sets, daily range): BP systolic 107–180; BP diastolic 53–87; PULSE 88–140; RESP 13–27; TEMP 97–99.3; O2SAT 96–100
[2024-07-02 05:47] LABS: HEMATOCRIT 27.2 % (36-48)
[2024-07-02 10:21] LABS: HEMATOCRIT 24.8 % (36-48)
--- NOTE | 2024-07-02 10:40 | PN ---
GENERAL SURGERY PROGRESS NOTE DATE OF SERVICE: Jul 02, 2024 TIME OF SERVICE: 10:39 PROBLEM LISTS: [ ] Perforated bowel SBO INTERVAL HISTORY: [ ] PHYSICAL EXAMINATION: GENERAL: [Patient is lying in bed, intubated and sedated HEAD: [Normal with no signs of head trauma.] EYES: [Not pale not jaundiced afebrile to touch.] ENT: [ Normal.] NECK: [Supple,no tenderness,no lymphadenopathy,no masses,no thyromegaly ,no bruits, no JVD.] LUNGS: [Clear breath sounds bilaterally. No wheezes, rales, or rhonchi.] HEART: [Regular rate and rhythm. Normal S1 and S2, without murmurs, rub or gallop.] ABD: [Wound VAC in place : [Normal, no suprapubic tenderness.] LYMPH: [No lymphadenopathy noted.] EXT: [ Swollen extremities SKIN: [ No rashes or lesions.] NEURO: Intubated and sedated LABORATORY: [ ] Hematology Labs: Test 07/02/24 10:15 07/01/24 04:32 Range/Units Hemoglobin 8.5 L 12.0-16.0 g/dL Hematocrit 24.8 L 36-48 % White Blood Count 17.9 #H 4.8-10.8 K/uL Red Blood Count 3.11 L 4.00-5.50 MIL/uL Mean Corpuscular Volume 87.1 79-99 fL Mean Corpuscular Hemoglobin 29.3 27.0-33.0 pg Mean Corpuscular Hemoglobin Concent 33.6 32.0-36.0 g/dL Red Cell Distribution Width 16.2 H 11.0-15.5 % Platelet Count 68 L 130-400 K/uL Mean Platelet Volume 10.7 H 7.5-10.5 fL Immature Granulocyte % (Auto) 3.0 H 0-1 % Neutrophils (%) (Auto) 90.0 H 40.0-77.0 % Lymphocytes (%) (Auto) 3.3 L 21.0-51.0 % Monocytes (%) (Auto) 3.4 3.0-13.0 % Eosinophils (%) (Auto) 0.1 0.0-8.0 % Basophils (%) (Auto) 0.2 0.0-5.0 % Neutrophils # (Auto) 16.1 H 1.8-7.7 K/uL Lymphocytes # (Auto) 0.6 L 1.0-4.8 K/uL Monocytes # (Auto) 0.6 0.1-1.0 K/uL Eosinophils # (Auto) 0.01 0.00-0.70 K/uL Basophils # (Auto) 0.03 0.00-0.20 K/uL Absolute Immature Granulocyte (auto 0.53 0-1 K/uL Nucleated Red Blood Cells 0.0 0.0-0.19 % White Cell Morphology Comment See comments Platelet Morphology Comment See comments Chemistry Labs: Test 07/01/24 17:45 07/01/24 04:32 Range/Units Whole Blood Glucose 168 H 70-110 MG/DL Sodium Level 129 L 136-145 mmol/L Potassium Level 3.5 3.5-5.1 mmol/L Chloride Level 95 L 101-111 mmol/L Carbon Dioxide Level 31 21-32 mmol/L Blood Urea Nitrogen 65 H 7-18 mg/dL Creatinine 1.2 H 0.5-1.0 mg/dL Glomerular Filtration Rate Calc 48 >90 mL/min Random Glucose 169 H 70-105 mg/dL Total Calcium 7.0 L 8.5-10.1 mg/dL Magnesium Level 1.70 L 1.80-2.40 mg/dL Total Bilirubin 0.6 0.2-1.0 mg/dL Aspartate Amino Transf (AST/SGOT) 9 L 10-37 U/L Alanine Aminotransferase (ALT/SGPT) 8 L 12-78 U/L Alkaline Phosphatase 206 H 50-136 U/L Total Protein 3.9 L 6.0-8.3 g/dL Albumin 1.6 L 3.5-5.0 g/dL Coagulation Labs: Test 07/01/24 11:56 Range/Units Prothrombin Time 12.8 H 9.6-11.6 SEC Prothromb Time International Ratio 1.23 H 0.85-1.15 Activated Partial Thromboplast Time 29.2 26.3-35.5 SEC Fibrinogen 583 *H 180-350 mg/dL DIAGNOSTICS / RADIOLOGY: [Copy/Paste Echos/Imaging Report here] ASSESSMENT: [] Acute abdomen Perforated bowel Recurrent SBO Multiple abdominal surgeries Umbilical/incisional hernia S/p exploratory laparotomy PLAN: [] Aggressive resuscitation NPO/IVF/IV ANTIOBIOTICS Labs in a.mELSA SAMUELS MD Jul 02, 2024 10:40
--- NOTE | 2024-07-02 10:52 | PN ---
[facility] PROGRESS NOTE Date Patient Seen: Jul 02, 2024 Time of Visit: 10:52 Supervising Physician: Roly Monson MD Consulting Physician: [facility] Outpatient Specialists: [ ] Inpatient Consults: [ ] PROBLEM LIST: Acute hypoxic Respiratory failure POA Acute encephalopathy, in the setting of severe sepsis POA Acute bowel perforation with subsequent peritonitis s/p exploratory laparotomy 06/23/24 Dr. Valenzuela POA Culture + E-coli. Repeat exploratory laparotomy on 06/26/2024 with small bowel anastomosis, right colon and transverse colon resection, colostomy creation, ileostomy tube placement and wound VAC placement. S/P wound closure and 2 ZAIDA to abdomen on 06/30/24 Shock etiology sepsis POA Suspected intraabdominal hemorrhage Urinary tract infection, POA E-coli multisensitive Pneumonitis, culture + for E-coli Acute kidney injury, POA Lactic acidosis, POA Acute blood loss anemia Thrombocytopenia Chronic debility, POA DM type 2, POA GERD, POA History small-bowel obstruction History of fibromyalgia History of hypertension, now hypotensive in the setting of septic shock versus hemorrhagic shock INTERVAL HISTORY: The Patient is status post abdominal wound closure day # 1. Wound VAC in place. Two ZAIDA drains intact. Colostomy to rt Lower quadrant draining dark red approximately 100 ml. Pt is off sedation and not waking up she grimaces to pain but overbreathing, tachypneic. Does not tolerate SBT's. She continues on life support with mechanical ventilator. ACVC tv 450, rr 18, fio2 of 30% and peep 5. She continues with lasix drip at 10mg/hr. Urine output 1.1 L in the last 24 hours left upper abdomen from gastrostomy tube drained 140 mL right abdomen drained 220 mL and right lateral abdomen drained 480 mL. Balance-110 mL. On laboratory H&H trending down 9.3/27.2 this morning. Chemistry with sodium of 128 potassium of 3.0 chloride 93 BUN 79 creatinine 1.2 and GFR of 48. Down to 93 kilos from 100 and kg. Stable chest x-ray right pulmonary vascular congestion with atelectasis. Left lung improving. We will keep pt off sedation and give fentanyl pushes as needed for pain. I have discussed goals of care with pt's daughter who will talk to pt's and likely tomorrow they will make a decision in regards to Tracheostomy placement VS comfort measures. I have updated the family of current clinical findings and likely poor prognosis due to her underlying already fragile state and bed bound status. Fow now we are to conitnue all supportive measures. REVIEW OF SYSTEMS: Unable to obtain due to alteration in mental status PHYSICAL EXAM: GENERAL: on sedation vacation still no waking up and critically ill. HEENT: Sclera non icteric, dry mucosa NECK: Supple, no JVD, trachea midline LUNGS: Diminished bibasilar air. No wheezes HEART: Normal S1 and S2, without murmurs ABD: Abdomen is distended and tender to palpate. Bowel sounds present, Colostomy and ileostomy, wound vac, destiney lower abdomen j tube and Gastrostomy to drainage per gravity. EXT: No clubbing cyanosis BLE edema +3 NEURO: GCS of 5. off sedation Intubated, Vital Signs (last 8hr) Date Time Temp Pulse Resp B/P (MAP) Pulse Ox O2 Delivery O2 Flow Rate FiO2 07/02/24 10:00 30 07/02/24 08:00 99.0 07/02/24 07:30 100 Ventilator+ 30 07/02/24 07:00 98 17 131/53 (79) 98 07/02/24 06:35 30 07/02/24 06:30 104 30 07/02/24 06:00 101 20 154/86 (108) 98 07/02/24 05:00 95 23 121/54 (76) 99 07/02/24 04:04 102 30 07/02/24 04:00 100 Ventilator+ 30 07/02/24 04:00 95 27 117/53 (74) 100 07/02/24 04:00 97.0 Ventilator 30 07/02/24 03:00 99 20 107/53 (71) 99 LABS: Hematology Labs: Test 07/02/24 10:15 07/01/24 04:32 Range/Units Hemoglobin 8.5 L 12.0-16.0 g/dL Hematocrit 24.8 L 36-48 % White Blood Count 17.9 #H 4.8-10.8 K/uL Red Blood Count 3.11 L 4.00-5.50 MIL/uL Mean Corpuscular Volume 87.1 79-99 fL Mean Corpuscular Hemoglobin 29.3 27.0-33.0 pg Mean Corpuscular Hemoglobin Concent 33.6 32.0-36.0 g/dL Red Cell Distribution Width 16.2 H 11.0-15.5 % Platelet Count 68 L 130-400 K/uL Mean Platelet Volume 10.7 H 7.5-10.5 fL Immature Granulocyte % (Auto) 3.0 H 0-1 % Neutrophils (%) (Auto) 90.0 H 40.0-77.0 % Lymphocytes (%) (Auto) 3.3 L 21.0-51.0 % Monocytes (%) (Auto) 3.4 3.0-13.0 % Eosinophils (%) (Auto) 0.1 0.0-8.0 % Basophils (%) (Auto) 0.2 0.0-5.0 % Neutrophils # (Auto) 16.1 H 1.8-7.7 K/uL Lymphocytes # (Auto) 0.6 L 1.0-4.8 K/uL Monocytes # (Auto) 0.6 0.1-1.0 K/uL Eosinophils # (Auto) 0.01 0.00-0.70 K/uL Basophils # (Auto) 0.03 0.00-0.20 K/uL Absolute Immature Granulocyte (auto 0.53 0-1 K/uL Nucleated Red Blood Cells 0.0 0.0-0.19 % White Cell Morphology Comment See comments Platelet Morphology Comment See comments Chemistry Labs: Test 07/01/24 17:45 07/01/24 04:32 Range/Units Whole Blood Glucose 168 H 70-110 MG/DL Sodium Level 129 L 136-145 mmol/L Potassium Level 3.5 3.5-5.1 mmol/L Chloride Level 95 L 101-111 mmol/L Carbon Dioxide Level 31 21-32 mmol/L Blood Urea Nitrogen 65 H 7-18 mg/dL Creatinine 1.2 H 0.5-1.0 mg/dL Glomerular Filtration Rate Calc 48 >90 mL/min Random Glucose 169 H 70-105 mg/dL Total Calcium 7.0 L 8.5-10.1 mg/dL Magnesium Level 1.70 L 1.80-2.40 mg/dL Total Bilirubin 0.6 0.2-1.0 mg/dL Aspartate Amino Transf (AST/SGOT) 9 L 10-37 U/L Alanine Aminotransferase (ALT/SGPT) 8 L 12-78 U/L Alkaline Phosphatase 206 H 50-136 U/L Total Protein 3.9 L 6.0-8.3 g/dL Albumin 1.6 L 3.5-5.0 g/dL Coagulation Labs: Test 07/01/24 11:56 Range/Units Prothrombin Time 12.8 H 9.6-11.6 SEC Prothromb Time International Ratio 1.23 H 0.85-1.15 Activated Partial Thromboplast Time 29.2 26.3-35.5 SEC Fibrinogen 583 *H 180-350 mg/dL DIAGNOSTICS / RADIOLOGY RESULTS: IMAGING REPORT Signed PATIENT: JOSÉ MIGUEL OSORIO MR#: [id number] : 1950 SEX: F AGE: 73 LOCATION: [facility] ORDER 2300 STATUS: ADM IN REPORT#: [id number] SERVICE 0600 REASON: PNA ORDERING PHYSICIAN: JOSE SPENCER NP PROCEDURE: CXR1VW - CHEST 1VW Exam Type: CHEST 1VW Clinical Information: PNA Comparison: None Findings: Pulmonary pattern is as before. No worrisome interval changes have taken place. Impression: Stable exam. DICTATED BY: NGOC ELIZABETH MD DATE: 06/30/241019 ELECTRONICALLY SIGNED BY: NGOC ELIZABETH MD DATE: 06/30/24 102 PLAN Plan to go back to OR for closure. NEURO: Minimize central acting medications as possible. Fall Precautions. Well lighted room through the day and minimize interruptions through the night to prevent acute delirium. PULMONARY: Supplemental 02 as needed Titrate Fio2 to keep Spo2 > or = 90% DuoNebs and CPT as needed IS hourly while awake for pulmonary hygiene Manage vent per abg ABG CARDIOVASCULAR: Follow hemodynamics. Titrate vasopressor to keep MAP >65 or systolic blood pressure >95mmHg Cardiac monitoring DIPS: Versed Fentanyl Lasix LINES: Right upper arm PICC line Right groin A-line LUE PICC Line GI & NUTRITION: NPO Aspirations precautions Prokinetic agents and laxatives as needed TPN KIDNEYS & ELECTROLYTES: Strict monitoring of intake and output Daily weights Avoid nephrotoxic agents Monitor electrolytes and replace as needed Goal urine output of 30mL/hr or 0.5mL/kg/hr ENDOCRINE: Maintain blood glucose between 100-180 at all times. Insulin sliding scale for blood glucose management INFECTIOUS DISEASE: Trend temperature. Clarke-culture if febrile. Micro: 06/24/2024: E coli in the urine. 06/25/2024: Peritoneal fluid positive for bacteroides uniformis and E coli. 06/25/2024: E coli of the sputum Antibiotics: Ceftazidime, Flagyl and fluconazole. HEMATOLOGY & COAGULATION: Monitor H&H. Keep Hgb > 7 Transfuse 1 unit of PRBC for Hgb < 7 Transfuse 1 pack of platelets of platelets < 20, 000 Watch for any signs and symptoms of bleeding SKIN: Pressure ulcer prevention per facility protocol Rehab: PT/OT Prophylaxis: GI: Protonix IV DVT: Bilateral SCDs Code Status: Full Resuscitation Disposition: ICU Other: I personally spent 40 minutes of critical care time in treatment of this patient. This includes patient management, time at bedside, time reviewing tests, labs, appropriate images and studies, documentation, and patient care coordination. This time excludes separately billable procedures. DEJAN STOREY [facility] Jul 02, 2024 10:52
--- NOTE | 2024-07-02 11:05 | NUR ---
MD Valenzuela at bedside. Speaking to family ( and Daughter) plan of care discussed. All questions answered.
--- NOTE | 2024-07-02 11:06 | NUR ---
Attempted CPAP trial, patient did not tolerated. Ventilator set to AC mode.
[2024-07-02] MEDS: metoPROLOL tartRATE 1 MG/ML 5ML VIAL IV ONE ×4 (11:31→16:22)
[2024-07-02] MEDS: M.V.I. IV [ADULT] 10 ML in CLINIMIX-E 5%AA /D15%W 2000ML 2,000 ML IV ONE (11:43)
--- NOTE | 2024-07-02 12:57 | PN ---
[facility] PROGRESS NOTE Date of Service: Jul 02, 2024 Time of Service: 12:54 SUBJECTIVE: Ms. Chandler is a 73-year-old female, with a past medical history of hypertension, hypothyroidism, DM, anemia, fibromyalgia, recurrent SpO2 is, chronic left hip pain, cervical CA presented to the ER with the complaints of sharp CBC left lower quadrant abdominal pain with nausea and vomiting since 2 days. Initial vitals blood pressure 62/50 which improved on Levophed. Initial labs WBCs 26.3, lactic acid 6.7. CT abdomen/pelvis resulted in Large amount of free abdominal air is seen concerning for bowel perforation. Surgery consult was obtained. 06/23/2024 postop patient is seen and examined at the bedside. She is sedated on Diprivan and intubated. She underwent exploratory laparotomy 06/23/24 Dr. Valenzuela for perforated small bowel and subsequent peritonitis this morning. Vitals blood pressure 104/58, heart rate 146 on Phenylephrine and vasopressin. Labs WBC 37.4, BUN 2 , creatinine 1.7, magnesium 0.90, TSH 16.6. Lactic acid improved from 7.7- 5. Urinalysis positive for leukocyte esterase. Chest x-ray revealed prominent bilateral interstitial markings. 06/24/2024 Patient is seen at the bedside. She is currently sedated on fentanyl and midazolam. Vitals blood pressure 131/72 on vasopressin. Currently intubated with VT 450, peep 5 and respiratory rate 14. Labs WBC improved from 31.5-26.7, hemoglobin 11.2, BUN 25 , creatinine 2 , lactic acid 10.3. Urine culture resulted in E coli. 06/25/2024 Patient is seen at the bedside. She remains intubated and sedated on fentanyl and midazolam. Vitals blood pressure in 110s/60s. Labs WBC improved from 26.7-11.2, hemoglobin 10.3, BUN 26, creatinine improved from 2-1.5, lactic acid improved from 4.5-3.5. Urine culture, respiratory culture and abdominal site culture resulted in E coli organism. 06/26/24 patient remains sedated and intubated. She has gone down to OR for extensive abdominal surgery 06/27/24 Patient is mechanical ventilated and remains sedated. Patient is off pressors at this time. Patient is status post exploratory laparotomy on 06/22/2024 and right transverse colon resection with anastomosis and wound VAC placement as well as right colostomy and left urostomy day # 1. Patient is afebrile this morning, temperature is 98.2 and the WBC is 6.1. Patient has received 2 units of PRBC throughout the night and this morning for hemoglobin of 6.4 and will receive 1 unit of platelets for platelet level of 34. The linezolid was discontinued yesterday. Patient continues on ceftazidime, metronidazole and fluconazole 06/28/24 patient was seen and examined she remains on mechanical ventilation and sedated. Patient was requiring multiple transfusion products including both platelets and PRBCs. DIC? Who we will consult Hematology 06/29/2024 Patient is seen at the bedside. She remains sedated on fentanyl and midazolam and intubated, NG tube in place. Her blood pressure is ranging in between 130/70s to 140/70s. She is currently not on any vasopressors. Labs hemoglobin 11.1, platelets 134 post 2 unit PRBC and 4 platelet transfusions yesterday. Sodium 130, chloride 96, BUN 45, creatinine 1.3, BNP of 1430. Urinary output is 550m L. She is currently on Lasix drip at the rate of 5 mL/hour. Plan for wound closure by surgery consult tomorrow. 06/30/2024 Patient is seen at the bedside. She remains sedated on Versed and fentanyl. Intubated with VT 450, RR 18, FiO2 30%. Blood pressure ranging in 150s/70s, not on any vasopressors. Urine output of 1.2 L, on Lasix drip. WBC increased from 9.7-12.8, hemoglobin 10.3, platelet 85, BUN 57, creatinine improved from 1.3-1.2, phosphatase 248, albumin 1.4. Patient had undergone wound closure by surgery consult today. Chest x-ray revealed stable pulmonary pattern with no worrisome interval changes. 07/01 patient is seen and examined at bedside, remains in the ICU, patient with a acute bowel perforation with subsequent peritonitis, status post exploratory laparotomy 06/23/2024 by General surgery with a culture positive for E coli. Patient is status post repeat exploratory laparotomy 06/26/2024 with small bowel anastomosis, right colon and transfer colon resection, colostomy creation, ileostomy tube placement and wound VAC placement. Patient is status post wound closure and 2nd ZAIDA to abdomen on 06/30/2024. During my visit patient is off sedation, minimal withdrawal to painful stimulation, eyes open, remains intubated, on mechanical ventilation. Remains on Lasix drip. Getting broad- spectrum IV antibiotics. On low-dose Precedex. 07/02 patient is seen and examined at bedside, daughter at bedside, updated. During my visit patient remains intubated, case discussed with the RN, patient has been off sedation since earlier this morning in order to assess mental status. She remains on broad-spectrum IV antibiotics. She remains on Lasix drip. REVIEW OF SYSTEMS: Not able to get a proper history as the patient is sedated CONSTITUTIONAL: Denies fevers, chills, or night sweats. No unintentional weight loss reported. NEUROLOGICAL: Denies headache, amaurosis fugax, motor weakness, sensory deficit, vertigo/spinning sensation, gait abnormalities, or tremors. ENT: No hearing loss, otalgia, otorrhea, rhinitis, rhinorrhea, hoarseness, or sore throat. CARDIOVASCULAR: Denies any exertional angina, dyspnea on exertion, orthopnea, paroxysmal nocturnal dyspnea, palpitations, life-threatening arrhythmias, claudication. PULMONARY: Denies any shortness of breath, cough, phlegm/sputum, hemoptysis, pleuritic chest pain. SLEEP: Denies morning headaches, daytime somnolence or napping. Denies difficulty falling asleep, staying asleep, waking from sleep. Denies knowledge of snoring. GASTROINTESTINAL: Denies any type of dysphagia to either liquids or solids. Denies nausea, vomiting, pyrosis, early satiety, abdominal pain, diarrhea, constipation, or changes in stool consistency or caliber. Denies coffee-ground emesis, hematemesis, hematochezia, or melanotic stools. GENITOURINARY: Denies frequency, urgency, nocturia, hematuria or incontinence (Storage/Irritative symptoms.) Low urinary stream, straining to void, urinary intermittency or hesitancy, splitting of the voiding stream, terminal dribbling. ENDOCRINOLOGIC: Denies polyuria, polydipsia, polyphagia or heat/cold intolerances. HEMATOLOGIC: Denies thrombophilia/previous clots, or coagulopathy/bleeding disorders. ONCOLOGIC: Denies personal history of malignancy. DERMATOLOGIC: Denies rashes or pruritus. PSYCHIATRIC: Denies any suicidal or homicidal ideation. Denies hallucinations. PHYSICAL EXAM GENERAL APPEARANCE: The patient is sedated, intubated NEUROLOGICAL: Cranial nerves II-XII grossly intact. Motor is 5/5 in bilateral upper and lower extremities proximal to distal. No sensory deficits. HEENT: Face is symmetric. Pupils are equal and reactive. Extraocular movements are intact. NECK: Supple. No JVD. No thyromegaly. No submental, submandibular, pre- /postauricular, occipital or supraclavicular lymphadenopathy. CHEST: Normal chest expansion. No Telemetry. LUNGS: Absence of any rales, rhonchi or any wheezing. CARDIOVASCULAR: Regular. S1 and S2 normal. No appreciable rubs, murmurs or gallops. ABDOMEN: Soft, nontender, and nondistended. There is no rebound, voluntary guarding, or rigidity. : Deferred. No Hearn. EXTREMITIES: No clubbing. Bilateral lower extremity edema Good capillary refill. SKIN: Sacral ulcer, No skin breakdown. Vital Signs (last 8hr) Date Time Temp Pulse Resp B/P (MAP) Pulse Ox O2 Delivery O2 Flow Rate FiO2 07/02/24 12:48 101 30 07/02/24 12:08 98.4 07/02/24 11:57 122 145/75 07/02/24 11:45 100 Ventilator+ 30 07/02/24 11:31 170 157/75 07/02/24 11:00 112 23 157/75 (102) 99 30 07/02/24 10:16 105 21 166/78 (107) 98 30 07/02/24 10:00 88 19 128/58 (81) 99 30 07/02/24 10:00 30 07/02/24 09:26 119 30 07/02/24 09:00 89 14 134/61 (85) 99 30 07/02/24 08:00 98 13 141/65 (90) 99 30 07/02/24 08:00 99.0 07/02/24 07:30 100 Ventilator+ 30 07/02/24 07:00 98 17 131/53 (79) 98 07/02/24 06:35 30 07/02/24 06:30 104 30 07/02/24 06:00 101 20 154/86 (108) 98 07/02/24 05:00 95 23 121/54 (76) 99 LABS: Laboratory: Test 07/02/24 10:15 07/01/24 17:45 07/01/24 11:56 07/01/24 04:32 Range/Units Hemoglobin 8.5 L 12.0-16.0 g/dL Hematocrit 24.8 L 36-48 % Whole Blood Glucose 168 H 70-110 MG/DL Prothrombin Time 12.8 H 9.6-11.6 SEC Prothromb Time International Ratio 1.23 H 0.85-1.15 Activated Partial Thromboplast Time 29.2 26.3-35.5 SEC Fibrinogen 583 *H 180-350 mg/dL White Blood Count 17.9 #H 4.8-10.8 K/uL Red Blood Count 3.11 L 4.00-5.50 MIL/uL Mean Corpuscular Volume 87.1 79-99 fL Mean Corpuscular Hemoglobin 29.3 27.0-33.0 pg Mean Corpuscular Hemoglobin Concent 33.6 32.0-36.0 g/dL Red Cell Distribution Width 16.2 H 11.0-15.5 % Platelet Count 68 L 130-400 K/uL Mean Platelet Volume 10.7 H 7.5-10.5 fL Immature Granulocyte % (Auto) 3.0 H 0-1 % Neutrophils (%) (Auto) 90.0 H 40.0-77.0 % Lymphocytes (%) (Auto) 3.3 L 21.0-51.0 % Monocytes (%) (Auto) 3.4 3.0-13.0 % Eosinophils (%) (Auto) 0.1 0.0-8.0 % Basophils (%) (Auto) 0.2 0.0-5.0 % Neutrophils # (Auto) 16.1 H 1.8-7.7 K/uL Lymphocytes # (Auto) 0.6 L 1.0-4.8 K/uL Monocytes # (Auto) 0.6 0.1-1.0 K/uL Eosinophils # (Auto) 0.01 0.00-0.70 K/uL Basophils # (Auto) 0.03 0.00-0.20 K/uL Absolute Immature Granulocyte (auto 0.53 0-1 K/uL Nucleated Red Blood Cells 0.0 0.0-0.19 % White Cell Morphology Comment See comments Platelet Morphology Comment See comments Sodium Level 129 L 136-145 mmol/L Potassium Level 3.5 3.5-5.1 mmol/L Chloride Level 95 L 101-111 mmol/L Carbon Dioxide Level 31 21-32 mmol/L Blood Urea Nitrogen 65 H 7-18 mg/dL Creatinine 1.2 H 0.5-1.0 mg/dL Glomerular Filtration Rate Calc 48 >90 mL/min Random Glucose 169 H 70-105 mg/dL Total Calcium 7.0 L 8.5-10.1 mg/dL Magnesium Level 1.70 L 1.80-2.40 mg/dL Total Bilirubin 0.6 0.2-1.0 mg/dL Aspartate Amino Transf (AST/SGOT) 9 L 10-37 U/L Alanine Aminotransferase (ALT/SGPT) 8 L 12-78 U/L Alkaline Phosphatase 206 H 50-136 U/L Total Protein 3.9 L 6.0-8.3 g/dL Albumin 1.6 L 3.5-5.0 g/dL Current Medications Medications (Trade) Dose Ordered Sig/Dionisio Route PRN Reason Start Time Stop Time Status Last Admin Dose Admin Acetaminophen (TYLenol 325MG TAB) 650 mg Q4H PRN PO TEMPERATURE GREATER THAN 101.5 06/23/24 03:30 07/23/24 03:29 Acetaminophen (TYLenol 650MG SUPPOSITORY) 650 mg Q6H PRN RC MILD PAIN (1-3) 06/22/24 20:30 07/22/24 20:29 Albumin Human 50 ml @ 0 mls/hr AD IV 06/26/24 17:30 06/26/24 17:32 DC Albumin Human 100 ml @ 0 mls/hr Q6H IV 07/01/24 12:00 07/03/24 11:59 07/02/24 11:31 100 MLS/HR Albumin Human 100 ml @ 0 mls/hr Q6H6 IV 06/23/24 00:00 06/23/24 12:52 DC Albumin Human 250 ml @ 400 mls/hr AD IV 06/26/24 17:30 06/27/24 18:03 DC 06/26/24 17:36 400 MLS/HR Albumin Human 250 ml @ 0 mls/hr AD IV 06/23/24 11:30 06/24/24 11:29 DC 06/24/24 13:26 400 MLS/HR Albumin Human 250 ml @ 0 mls/hr AD IV 06/24/24 12:00 06/24/24 13:21 DC Aminocaproic Acid 92831 mg/Sodium Chloride 500 ml @ 0 mls/hr AD IV 06/27/24 19:30 06/27/24 18:37 DC Artificial Tears (Artificial Tears) 1 DROP BID OU 06/24/24 21:00 07/24/24 20:59 07/02/24 09:14 1 DROP Calcium Gluconate 1 gm/Sodium Chloride 100 ml @ 0 mls/hr PROTOCOL IV 06/29/24 08:30 07/29/24 08:29 Calcium Gluconate 1 gm/Sodium Chloride 100 ml @ 0 mls/hr PROTOCOL IV 06/26/24 16:00 06/29/24 08:10 DC 06/26/24 16:57 400 MLS/HR Calcium Gluconate 2 gm/Sodium Chloride 120 ml @ 120 mls/hr PROTOCOL PRN IV WHEN 2G DOSE IS NEEDED 06/28/24 00:30 07/28/24 00:29 06/28/24 01:06 120 MLS/HR Cefepime HCl (MAXipime 2 gm vial) 2 gm Q12H IVPB 06/22/24 21:00 06/23/24 03:25 DC 06/22/24 22:03 2 GM Cefepime HCl (MAXipime 2 gm vial) 2 gm Q24H IVPB 06/23/24 21:00 06/23/24 21:47 DC 06/23/24 21:15 2 GM Ceftazidime (ForTAZ/TAZidime) 1 gm Q24H IVPB 06/24/24 01:30 07/04/24 01:29 07/02/24 01:41 1 GM Dexmedetomidine/ Sodium Chloride (PRECEdex 200MCG/ 50ML-NS) 200 mcg PROTOCOL IV 07/01/24 12:00 07/31/24 11:59 07/02/24 07:19 200 MCG Enoxaparin Sodium (Lovenox) 30 mg DAILY SQ 06/23/24 09:00 06/30/24 09:13 DC 06/25/24 07:35 30 MG Fat Emulsion Intravenous 250 ml @ 42 mls/hr DAILY10 IV 06/24/24 10:00 06/24/24 13:22 DC 06/24/24 10:07 42 MLS/HR Fat Emulsion Intravenous 250 ml @ 42 mls/hr MoWeFr IV 06/29/24 20:18 07/29/24 20:17 Cancel Fat Emulsion Intravenous 250 ml @ 42 mls/hr QMOWEFR@1000 IV 06/26/24 10:00 07/24/24 09:59 07/01/24 10:17 42 MLS/HR Fentanyl Citrate 100 ml @ 2.5 mls/hr PROTOCOL IV 06/23/24 09:00 06/26/24 20:27 DC 06/26/24 17:13 2.5 MLS/HR Fentanyl Citrate (FENTanyl CITRate PF 50 MCG/ 1 ML 2ML VIAL) 50 mcg Q4H PRN IVP MODERATE PAIN (4-6) 07/01/24 12:00 07/31/24 11:59 07/02/24 01:42 50 MCG Fentanyl Citrate 2500 mcg/Sodium Chloride 250 ml @ 0 mls/hr AD PRN IV TITRATE 06/26/24 20:30 06/26/24 20:41 DC Fentanyl/Sodium Chloride 250 ml @ 0 mls/hr PROTOCOL IV 06/26/24 21:00 07/01/24 12:21 DC 07/01/24 04:55 27.5 MLS/HR Fluconazole/ Sodium Chloride (DiFLUCan 200 MG/ NS 100 ML) 200 mg Q24H IVPB 06/23/24 03:30 07/23/24 03:29 07/02/24 02:35 200 MG Furosemide (LASix 20MG VIAL) 20 mg ONCE STAT IV 06/25/24 15:49 06/25/24 15:50 DC 06/25/24 16:11 20 MG Furosemide (LASix 20MG VIAL) 20 mg Q8H IV 06/25/24 17:30 06/27/24 17:29 DC 06/27/24 10:01 20 MG Furosemide (LASix 20MG VIAL) 20 mg Q8H IV 06/28/24 20:00 06/29/24 10:14 DC 06/29/24 03:04 20 MG Furosemide 100 mg/ Sodium Chloride 100 ml @ 0 mls/hr PROTOCOL IV 06/29/24 10:30 07/29/24 10:29 07/02/24 00:47 10 MLS/HR Furosemide 100 mg/ Sodium Chloride 100 ml @ 0 mls/hr PROTOCOL IV 06/23/24 12:00 06/23/24 12:44 DC 06/23/24 11:37 5 MLS/HR Heparin Sodium (Porcine) (HEParin 5,000 UNIT VIAL) 5,000 unit BID SQ 06/22/24 21:00 06/22/24 20:48 DC Hydrocortisone Sodium Succinate (Solu-corTEF 100MG) 25 mg Q12H IV 06/26/24 14:00 07/23/24 08:59 07/02/24 01:42 25 MG Hydrocortisone Sodium Succinate (Solu-corTEF 100MG) 50 mg Q6H6 IV 06/23/24 09:00 06/26/24 13:48 DC 06/26/24 05:33 50 MG Hydromorphone HCl (DiLAUDid 1MG INJ) 1 mg Q3H3 PRN IVP SEVERE PAIN (7-10) 06/23/24 03:30 06/28/24 03:29 DC Insulin Human Regular (humuLIN R 100 UNIT/ML 3ML) INSULIN SLIDING SCAL... ACHS SQ 06/29/24 21:00 07/29/24 20:59 06/30/24 20:54 2 UNIT Insulin Human Regular (humuLIN R 100 UNIT/ML 3ML) INSULIN SLIDING SCAL... ACHS SQ 06/22/24 21:00 06/24/24 15:37 DC 06/24/24 10:09 6 UNIT Insulin Human Regular (humuLIN R 100 UNIT/ML 3ML) INSULIN SLIDING SCAL... Q6H6 SQ 06/24/24 18:00 06/25/24 06:25 DC 06/24/24 23:32 7 UNIT Insulin Human Regular 100 unit/ Sodium Chloride 100 ml @ 0 mls/hr AD IV 06/25/24 06:30 07/02/24 06:29 DC 06/28/24 01:08 3 MLS/HR Ketorolac Tromethamine (toRADol) 15 mg Q6H PRN IV MODERATE PAIN (4-6) 06/23/24 03:30 06/27/24 18:23 DC Lactated Ringer's 1,000 ml @ 40 mls/hr Q24H IV 06/26/24 20:30 07/01/24 14:06 DC 06/30/24 17:48 40 MLS/HR Lactated Ringer's 1,000 ml @ 125 mls/hr Q8H IV 06/22/24 20:30 06/23/24 12:44 DC 06/23/24 11:23 125 MLS/HR Lactated Ringer's (Lactated Ringers 1000ml) 500 ml BOLUS IV 06/23/24 05:30 06/24/24 13:22 DC Linezolid 300 ml @ 150 mls/hr Q12H IV 06/23/24 15:00 06/26/24 10:34 DC 06/26/24 03:27 150 MLS/HR Magnesium Sulfate 50 ml @ 0 mls/hr PROTOCOL IV 06/23/24 04:30 07/23/24 04:29 07/02/24 02:35 25 MLS/HR Magnesium Sulfate (Magnesium 4gm Premix 100ml) 4 gm AD IV 06/23/24 05:30 06/23/24 05:59 DC Metoprolol Tartrate (loprESSOR) 5 mg ONCE IV 06/26/24 17:00 06/26/24 21:30 DC 06/26/24 17:28 5 MG Metronidazole/ Sodium Chloride 100 ml @ 100 mls/hr Q8H6 IVPB 06/23/24 14:00 07/03/24 13:59 07/02/24 06:23 100 MLS/HR Midazolam HCl 100 ml @ 0 mls/hr AD PRN IV TITRATE 06/23/24 22:00 07/01/24 12:21 DC 06/30/24 19:17 7 MLS/HR Morphine Sulfate (morPHINE 2MG SYG) 2 mg Q4H PRN IVP SEVERE PAIN (7-10) 06/22/24 20:30 06/23/24 03:21 DC Multivitamins/ Minerals 10 ml/ Amino Acids/ Electrolytes/ Dextrose 2,000 ml @ 83 mls/hr AD IV 06/26/24 20:30 06/27/24 18:02 DC 06/26/24 21:58 83 MLS/HR Norepinephrine 250 ml @ 0 mls/hr PROTOCOL IV 06/22/24 19:30 06/23/24 03:51 DC 06/22/24 20:15 45 MLS/HR Norepinephrine Bitartrate 32 mg/ Sodium Chloride 250 ml @ 0 mls/hr Q0M STAT IV 06/23/24 03:47 06/23/24 03:52 DC 06/23/24 07:22 32.8 MLS/HR Ondansetron HCl (zoFRAN 4MG INJ) 4 mg Q6H PRN IV NAUSEA/VOMITING 06/22/24 20:30 07/22/24 20:29 Ondansetron HCl (zoFRAN 4MG INJ) 4 mg Q6H PRN IVP NAUSEA/VOMITING 06/23/24 03:30 06/23/24 03:18 DC Pantoprazole Sodium (PROTonix 40MG INJ) 40 mg BID IVP 06/23/24 09:00 07/23/24 08:59 07/02/24 09:14 40 MG Pantoprazole Sodium (PROTonix 40MG INJ) 40 mg DAILY IV 06/23/24 09:00 06/23/24 03:19 DC Pharmacy Profile Note (Lace Assessment) 1 each AD MISC 06/24/24 14:00 06/24/24 13:53 DC Pharmacy Profile Note (Pharmacy Communication) 1 each ONCE MISC 06/23/24 14:00 06/23/24 13:46 DC Pharmacy Profile Note (Pharmacy Communication) 1 each ONCE MISC 06/27/24 19:00 06/27/24 18:50 DC Pharmacy Profile Note (Pharmacy Communication) 1 each ONCE STAT MISC 06/25/24 17:11 06/26/24 15:42 DC Phenylephrine HCl 100 mg/Sodium Chloride 250 ml @ 0 mls/hr PROTOCOL IV 06/23/24 08:30 07/23/24 08:29 06/23/24 13:00 32.67 MLS/HR Piperacillin Sod/ Tazobactam Sod (Zosyn 3.375gm+NS 50ml) 3.375 gm Q8H IVPB 06/23/24 03:30 06/23/24 04:34 DC Potassium Chloride 100 ml @ 50 mls/hr AD PRN IV POTASSIUM PROTOCOL 06/23/24 05:30 07/23/24 05:29 07/02/24 02:36 50 MLS/HR Propofol (DIPRivan 1000MG/ 100ML) 1,000 mg PROTOCOL PRN IV SEDATION 06/23/24 03:30 07/02/24 10:54 DC 06/23/24 04:06 1,000 MG Sodium Bicarbonate 150 meq/Dextrose 1,150 ml @ 50 mls/hr Q23H IV 06/26/24 23:00 06/26/24 22:55 DC Sodium Bicarbonate 150 meq/Dextrose 1,150 ml @ 50 mls/hr Q23H IVP 06/23/24 13:00 06/25/24 17:25 DC 06/24/24 19:34 50 MLS/HR Sodium Bicarbonate 150 meq/Dextrose 1,150 ml @ 50 mls/hr Q23H IVP 06/26/24 23:00 06/27/24 17:57 DC 06/27/24 00:56 50 MLS/HR Sodium Bicarbonate 150 meq/Sodium Chloride 1,150 ml @ 50 mls/hr Q23H IVP 06/25/24 17:30 06/25/24 17:52 DC 06/25/24 17:42 50 MLS/HR Sodium Bicarbonate 150 meq/Sterile Water 1,150 ml @ 50 mls/hr Q23H IVP 06/25/24 18:00 06/26/24 14:36 DC 06/25/24 18:18 50 MLS/HR Sodium Chloride 1,000 ml @ 0 mls/hr Q0M IV 06/23/24 12:00 07/23/24 11:59 06/23/24 15:43 1,000 MLS/HR Sodium Chloride (NS 50ml) 50 ml AD IV 06/23/24 03:30 06/23/24 03:26 DC Vasopressin 20 units/Sodium Chloride 100 ml @ 0 mls/hr PROTOCOL IV 06/22/24 20:30 07/22/24 20:29 06/24/24 08:43 6 MLS/HR DIAGNOSTICS / RADIOLOGY: [ ] ASSESSMENT: PLAN: Acute hypoxic Respiratory failure POA Acute encephalopathy, in the setting of severe sepsis POA Acute bowel perforation with subsequent peritonitis s/p exploratory laparotomy 06/23/24 Dr. Valenzuela POA Culture + E-coli. Repeat exploratory laparotomy on 06/26/2024 with small bowel anastomosis, right colon and transverse colon resection, colostomy creation, ileostomy tube placement and wound VAC placement. S/P wound closure and 2 ZAIDA to abdomen on 06/30/24 Shock etiology sepsis POA Suspected intraabdominal hemorrhage Urinary tract infection, POA E-coli multisensitive Pneumonitis, culture + for E-coli Acute kidney injury, POA Lactic acidosis, POA Acute blood loss anemia Thrombocytopenia Chronic debility, POA DM type 2, POA GERD, POA History small-bowel obstruction History of fibromyalgia History of hypertension, now hypotensive in the setting of septic shock versus hemorrhagic shock PLAN: Patient remains admitted to the ICU Patient with a Acute bowel perforation with subsequent peritonitis s/p exploratory laparotomy 06/23/24 Dr. Bianca PRAKASH Culture + E-coli. Repeat exploratory laparotomy on 06/26/2024 with small bowel anastomosis, right colon and transverse colon resection, colostomy creation, ileostomy tube placement and wound VAC placement. S/P wound closure and 2 ZAIDA to abdomen on 06/30/24 Remains intubated, on mechanical ventilation. Wean as tolerated Continue Lasix drip Continue broad-spectrum IV antibiotics Continue to follow surgical input and recommendations Continue to follow critical care input recommendations Monitor mental status off sedation. NEURO: Minimize central acting medications as possible. Fall Precautions. Well lighted room through the day and minimize interruptions through the night to prevent acute delirium. PULMONARY: Supplemental 02 as needed BiPAP as necessary, for respiratory distress Titrate Fio2 to keep Spo2 > or = 90% DuoNebs and CPT as needed IS hourly while awake for pulmonary hygiene prn Out of bed to chair as tolerated Maintain aspiration precautions at all times CARDIOVASCULAR: Follow hemodynamics. Vital signs per facility protocol GI & NUTRITION: Continue nutritional support Aspirations precautions Prokinetic agents and laxatives as needed KIDNEYS & ELECTROLYTES: Strict monitoring of intake and output Daily weights Avoid nephrotoxic agents Monitor electrolytes and replace as needed Goal urine output of 30mL/hr or 0.5mL/kg/hr Medications to be dosed according to renal function. Avoid contrast if possible ENDOCRINE: Maintain blood glucose between 100-180 at all times. Insulin sliding scale for blood glucose management Hypoglycemia and hyperglycemia protocol in place INFECTIOUS DISEASE: Trend temperature, WBC and procalcitonin level Follow cultures, deescalate antibiotics as soon as possible. Panculture if new onset fever HEMATOLOGY & COAGULATION: Monitor H&H. Keep Hgb > 7 Transfuse 1 unit of PRBC for Hgb < 7 Transfuse 1 pack of platelets of platelets < 20, 000 Watch for any signs and symptoms of bleeding SKIN: Pressure ulcer prevention per facility protocol Specialty mattress as needed ORTHO/REHAB Continue PT/OT PRN: MEDICATIONS Tylenol 650 mg po every 4 hrs for fever zofran 4 mg IV every 6 hrs for n/v Hydralazine 5 mg IV every 4 hrs systolic pressure > 160 bowel regiment: lactulose 20 gm PO BID PRN constipation Supportive measures: Continue GI and DVT prophylaxis Disposition: Pending improvement in clinical condition. All questions answered time spent: > 35 min MARTIN GALINDO MD Jul 02, 2024 12:57
[2024-07-02 15:24] LABS: ABG BASE EXCESS 0.5 mmol/L (-2.0-3.0); ABG HCO3 23.8 mmol/L (21.0-28.0); ABG OXYGEN SATURATION 96.6 % (94.0-98.0); ABG PCO2 33 mmHg (32-45); ABG PH 7.472 (7.350-7.450); CARBON MONOXIDE 0 % (0.5-1.5); DEVICE COMMENT LR RICHARD; HHb 3.4; PO2, ARTERIAL BG 88.3 mmHg (83.0-108.0); VENT MODE, BG AC-VC (ROOM AIR)
[2024-07-02] MEDS: metoPROLOL tartRATE 1 MG/ML 5ML VIAL IV STA (15:30)
[2024-07-02 15:50] LABS: CREATININE 1.2 mg/dL (0.5-1.0); MAGNESIUM 1.8 mg/dL (1.80-2.40)
--- NOTE | 2024-07-02 15:50 | NUR ---
[facility] Follow-up: Patient re-assessed by wound healing team. See wound assessment. Assessment and recommendations provided to primary nurse. Education provided. Wound vac changed. Unable to assess sacral/buttock wound at this time heart rate in 130-140's. Addendum: 07/03/24 at 1052 by FOX BATEMAN RN RN/ Amended: Links added.
[2024-07-02 16:02] LABS: HEMATOCRIT 24.9 % (36-48)
--- NOTE | 2024-07-02 19:59 | PN ---
INFECTIOUS DISEASE PROGRESS NOTE Date of Service: Jul 02, 2024 SUBJECTIVE: This is a 73-year-old female patient who was seen and examined at bedside in the ICU room 218. Patient is on mechanical ventilation. Sedation was stopped this morning. Patient is status post exploratory laparotomy on 06/22/2024 and abdominal wound closure on 06/30/2024 . Small amount of bloody drainage is in the Wound VAC canister. Right ileostomy and left urostomy intact. No fever, temperature is 99.0. Patient's at bedside and was updated on patient's status. Patient continues on ceftazidime, metronidazole and fluconazole. We will continue to follow patient's care. PHYSICAL EXAM EYES: Anicteric. Pupils equal and reactive. HENT: No oral thrush seen, moist Oral mucosa. NECK: Supple, no JVD or thyromegaly. LUNGS: Good air entry. No rales, no rhonchi. Mechanical ventilation. CARDIOVASCULAR: S1, S2 regular. No murmur heard. ABDOMEN: Soft, non tender, bowel sounds present, no organomegaly. Open surgical incision with a wound VAC. Right ileostomy. Left Urostomy. ZAIDA drains. CENTRAL NERVOUS SYSTEM: Intubated. SKIN: No rashes, no swelling. LYMPHATICS: No peripheral lymphadenopathy. MUSCULOSKELETAL: No joint swelling, erythema or tenderness. EXTREMITIES: No cyanosis or clubbing. BACK: No deformity, no pressure ulcer. GENITOURINARY: No dysuria or hematuria. Hearn catheter. Vital Sign (Last 12 Hours) 07/02/24 07/02/24 07/02/24 07/02/24 08:00 08:00 09:00 09:26 Temp 99.0 Pulse 98 89 119 Resp 13 14 B/P (MAP) 141/65 (90) 134/61 (85) Pulse Ox 99 99 FiO2 30 30 30 07/02/24 07/02/24 07/02/24 07/02/24 10:00 10:00 10:16 11:00 Pulse 88 105 112 Resp 19 21 23 B/P (MAP) 128/58 (81) 166/78 (107) 157/75 (102) Pulse Ox 99 98 99 FiO2 30 30 30 30 07/02/24 07/02/24 07/02/24 07/02/24 11:15 11:31 11:33 11:45 Pulse 116 170 133 Resp 19 19 B/P (MAP) 135/56 (82) 157/75 145/75 (98) Pulse Ox 100 96 100 O2 Delivery Ventilator+ FiO2 30 30 30 07/02/24 07/02/24 07/02/24 07/02/24 11:57 12:00 12:00 12:08 Temp 98.4 Pulse 122 140 Resp 20 B/P (MAP) 145/75 137/83 (101) Pulse Ox 100 FiO2 30 30 07/02/24 07/02/24 07/02/24 07/02/24 12:15 12:48 13:00 13:15 Pulse 99 101 104 110 Resp 20 19 21 B/P (MAP) 154/71 (98) 152/78 (102) 152/80 (104) Pulse Ox 100 100 99 FiO2 30 30 30 07/02/24 07/02/24 07/02/24 07/02/24 14:00 14:15 15:00 15:00 Pulse 109 111 107 Resp 19 19 21 B/P (MAP) 151/77 (101) 151/73 (99) 148/75 (99) Pulse Ox 98 98 98 FiO2 30 07/02/24 07/02/24 07/02/24 07/02/24 15:10 15:12 15:15 15:30 Pulse 112 120 131 120 Resp 22 B/P (MAP) 132/71 (91) 147/60 (89) 152/78 Pulse Ox 99 99 FiO2 30 07/02/24 07/02/24 07/02/24 07/02/24 15:31 16:00 16:00 16:12 Temp 99.3 Pulse 137 132 Resp 13 21 B/P (MAP) 152/81 (104) 146/79 (101) Pulse Ox 94 100 99 O2 Delivery Ventilator+ FiO2 30 07/02/24 07/02/24 07/02/24 07/02/24 16:15 16:22 17:00 17:15 Pulse 89 132 94 97 Resp 18 22 21 B/P (MAP) 144/74 (97) 146/79 154/83 (106) 158/83 (108) Pulse Ox 100 100 100 FiO2 30 30 30 07/02/24 07/02/24 07/02/24 07/02/24 18:00 18:15 18:35 18:46 Temp 98.2 Pulse 98 100 97 Resp 22 21 19 B/P (MAP) 161/82 (108) 162/83 (109) 153/70 (97) Pulse Ox 100 100 100 FiO2 30 30 07/02/24 07/02/24 18:57 19:15 Pulse 97 101 Resp 23 B/P (MAP) 160/80 (106) Pulse Ox 100 FiO2 30 Intake & Output (last 24hrs) 07/01/24 07/01/24 07/02/24 15:00 23:00 07:00 Intake Total 1322.0 ml 825.0 ml 952.0 ml Output Total 560 ml 1400 ml 1160 ml Balance 762.0 ml -575.0 ml -208.0 ml LABS: Laboratory: Test 07/02/24 15:22 07/02/24 15:15 07/01/24 17:45 07/01/24 11:56 Range/Units Blood Gas Specimen Type Arterial Arterial Blood pH 7.472 H 7.350-7.450 Arterial Blood Partial Pressure CO2 33 32-45 mmHg Arterial Blood Partial Pressure O2 88.3 83.0-108.0 mmHg Arterial Blood HCO3 23.8 21.0-28.0 mmol/L Arterial Blood Oxygen Saturation 96.6 94.0-98.0 % Arterial Blood Base Excess 0.5 -2.0-3.0 mmol/L Hemoglobin (Blood Gas) 9.4 L 12.0-16.0 g/dL Sodium (Blood Gas) 126 L 136-145 MMOL/L Bedside Potassium (Blood Gas) 3.3 L 3.4-4.5 MMOL/L Bedside Chloride (Blood Gas) 94 L 98-107 MMOL/L Bedside Glucose (Blood Gas) 103 H 65-95 MG/DL Bedside Ionized Calcium (Blood Gas) 1.02 L 1.15-1.33 MMOL/L Bedside Lactic Acid (Blood Gas) 1.03 H 0.36-0.75 MMOL/L Blood Gas Temperature 37.0 35.5-37.0 CELSIUS Blood Gas Respiration Rate 18.0 min. Blood Gas Vent Mode AC-VC ROOM AIR FiO2 30.0 % Blood Gas Tidal Volume 450 ml Blood Gas PEEP 5 cm H2O Blood Gas Specimen Comment LR REJI Hemoglobin 8.1 L 12.0-16.0 g/dL Hematocrit 24.9 L 36-48 % Sodium Level 128 L 136-145 mmol/L Potassium Level 3.0 *L 3.5-5.1 mmol/L Chloride Level 93 L 101-111 mmol/L Carbon Dioxide Level 30 21-32 mmol/L Blood Urea Nitrogen 79 *H 7-18 mg/dL Creatinine 1.2 H 0.5-1.0 mg/dL Glomerular Filtration Rate Calc 48 >90 mL/min Random Glucose 123 H 70-105 mg/dL Total Calcium 7.0 L 8.5-10.1 mg/dL Magnesium Level 1.80 1.80-2.40 mg/dL Whole Blood Glucose 168 H 70-110 MG/DL Prothrombin Time 12.8 H 9.6-11.6 SEC Prothromb Time International Ratio 1.23 H 0.85-1.15 Activated Partial Thromboplast Time 29.2 26.3-35.5 SEC Fibrinogen 583 *H 180-350 mg/dL Test 07/01/24 04:32 Range/Units White Blood Count 17.9 #H 4.8-10.8 K/uL Red Blood Count 3.11 L 4.00-5.50 MIL/uL Mean Corpuscular Volume 87.1 79-99 fL Mean Corpuscular Hemoglobin 29.3 27.0-33.0 pg Mean Corpuscular Hemoglobin Concent 33.6 32.0-36.0 g/dL Red Cell Distribution Width 16.2 H 11.0-15.5 % Platelet Count 68 L 130-400 K/uL Mean Platelet Volume 10.7 H 7.5-10.5 fL Immature Granulocyte % (Auto) 3.0 H 0-1 % Neutrophils (%) (Auto) 90.0 H 40.0-77.0 % Lymphocytes (%) (Auto) 3.3 L 21.0-51.0 % Monocytes (%) (Auto) 3.4 3.0-13.0 % Eosinophils (%) (Auto) 0.1 0.0-8.0 % Basophils (%) (Auto) 0.2 0.0-5.0 % Neutrophils # (Auto) 16.1 H 1.8-7.7 K/uL Lymphocytes # (Auto) 0.6 L 1.0-4.8 K/uL Monocytes # (Auto) 0.6 0.1-1.0 K/uL Eosinophils # (Auto) 0.01 0.00-0.70 K/uL Basophils # (Auto) 0.03 0.00-0.20 K/uL Absolute Immature Granulocyte (auto 0.53 0-1 K/uL Nucleated Red Blood Cells 0.0 0.0-0.19 % White Cell Morphology Comment See comments Platelet Morphology Comment See comments Total Bilirubin 0.6 0.2-1.0 mg/dL Aspartate Amino Transf (AST/SGOT) 9 L 10-37 U/L Alanine Aminotransferase (ALT/SGPT) 8 L 12-78 U/L Alkaline Phosphatase 206 H 50-136 U/L Total Protein 3.9 L 6.0-8.3 g/dL Albumin 1.6 L 3.5-5.0 g/dL ASSESSMENT: Nontraumatic intestinal perforation, 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 Generalized peritonitis with E coli. Septic shock. Leukocytosis, resolving. Urinary tract infection with E coli. Thrombocytopenia, requiring platelet transfusion. Postoperative anemia requiring blood transfusion. Acute on chronic renal failure, resolving. Generalized edema. PLAN: Continues on ceftazidime. Continue on fluconazole. Continue on metronidazole IV. Continue GI prophylaxis. Continue critical care support. Continue vasopressor support. Continue mechanical ventilation. Avoid nephrotoxic medications. Continues on furosemide drip. Continue ileostomy and urostomy care. This case was reviewed and discussed with my supervising physician and the above assessment and plan was formulated and agreed upon. ATTESTATION BY PHYSICIAN I have seen and examined the patient. I reviewed the documentation, medical decision making, and treatment plan as noted by the mid-level provider above. I agree with the findings and plan of care. GOSIA INIGUEZ MD, [facility] Jul 02, 2024 19:59
--- NOTE | 2024-07-02 20:42 | OP ---
DATE OF PROCEDURE: 06/26/2024 PREOPERATIVE DIAGNOSES: * Perforated gastric ulcer. * Small-bowel obstruction. POSTOPERATIVE DIAGNOSES: * Ischemic transverse colon. * Viable looking small bowel. * Staple line with fascia ischemia. PROCEDURE PERFORMED: Removal of ABThera wound VAC, small bowel resection, right extended hemicolectomy, ileostomy, open gastrostomy tube placement, placement of ABThera wound VAC. SURGEON: Bianca Soria MD ANESTHESIA: General. FINDINGS: * Viable small bowel. * Ischemic staple line of small bowel anastomosis. * Ischemic patches on transverse colon. SPECIMENS REMOVED: Small bowel, right colon, transverse colon. COMPLICATIONS: None. DESCRIPTION OF PROCEDURE: The patient was brought into the operating room. After proper identification, the patient was placed on the operating table in the supine position. The patient was already endotracheally intubated. Attention was then focussed in the area of the abdomen. The patient was prepped and draped in the usual sterile fashion. An appropriate time-out was then carried out at this point. I then proceeded to remove the previously placed ABThera wound VAC. I then proceeded to inspect the abdomen. The transverse colon was noted to be having patchy ischemic changes. The stapled small bowel anastomosis also showed an area of ischemia at the anastomotic staple line. So at this point, I decided to do a right extended hemicolectomy to remove the transverse colon. The right colon was then mobilized medially by taking down the white line of Toldt all the way to the mid transverse colon. I then proceeded to create window in the mesentery of the transverse colon and small bowel using the tissue load of the Endo-PAOLA. The colon and the small bowel was then transected. The mesentery was then scored and mesenteric vessels were then taken using the vascular load of the Endo-PAOLA. The specimen was then delivered. I then inspected the abdomen. The distal transverse colon and the descending colon looked viable. The rest of the small bowel looked viable except for the anastomosis of the staple line. So at this point, I proceeded to resect the anastomosis using the tissue load of the Endo-PAOLA. The specimen was delivered and I then proceeded to carry out a stapled anastomosis between the two cut end of the small bowel. Once this was done, I copiously irrigated the abdomen with antibiotic irrigation. Hemostasis was noted to be adequate. I then proceeded to carry out a gastrostomy tube placement. Two rows of 2-0 Vicryl pursestring stitches were then placed on the anterior stomach. A gastrotomy was then made. The gastrostomy tube was then placed through a separate stab wound on the anterior abdominal wall. The gastrostomy tube was then placed in the stomach, the balloon inflated and the pursestring was used to secure this in place. Internally, the anterior stomach was then tacked to the anterior abdominal wall using 3-0 Vicryl interrupted stitches. Externally, the gastrostomy tube was tacked to the anterior abdominal wall using 3-0 nylon interrupted stitches. I then proceeded to carry out an ileostomy. A circumferential incision was then made in the right lower quadrant. Incision was carried through skin and subcutaneous tissue until the anterior rectus fascia was identified. The anterior rectus fascia was then incised and the rectus muscle was then carefully retracted laterally and the posterior rectus fascia was then carefully incised. Two finger dilatation was then carried out. The ileum was then delivered. I then proceeded to place an ABThera wound VAC in the abdomen in the usual way. I proceeded to mature the ileostomy by opening the staple end of the ileum. The ileum was then sutured in a otoe-missouria everted fashion to the skin. This concluded the procedure. Ileostomy appliance was then placed and the patient was then taken to ICU, intubated in guarded condition. Instrument and sponge count was found correct x 2. TID: [id number] RECEIPT: [id number]
--- NOTE | 2024-07-02 21:13 | OP ---
DATE OF PROCEDURE: 06/23/2024 PREOPERATIVE DIAGNOSES: * Acute abdomen. * Perforated viscus. * Peritonitis. POSTOPERATIVE DIAGNOSES: * Acute abdomen. * Perforated viscus. * Peritonitis. * Perforated posterior gastric ulcer about 4 cm. * Complete small bowel obstruction. * Dense fibrous bands. * Partial small bowel obstruction x [address] PROCEDURE PERFORMED: * Exploratory laparotomy. * Extensive lysis of adhesions. * Partial gastrectomy, excision of gastric ulcer. * Small bowel resection. * Omentectomy. * Placement of ABThera wound VAC. SURGEON: Bianca Soria MD ANESTHESIA: General. ESTIMATED BLOOD LOSS: With succus entericus 300 mL. FINDINGS: * Gush of free air. * Succus entericus. * Posterior gastric ulcer perforated about 4 cm. * Extensive adhesions. * Complete small bowel obstruction, proximal jejunum. * Dilated proximal small bowel collapse, distal to small bowel. * Two areas of partial SBO in the ileum. * Normal right colon, transverse colon, sigmoid and rectum. SPECIMEN REMOVED: Omentum, stomach, gastric ulcer, small bowel. COMPLICATIONS: None. DESCRIPTION OF PROCEDURE: Patient was brought into the operating room. After proper identification, the patient was placed on the operating table in supine position. General anesthesia was then administered and the patient was endotracheally intubated. Attention was then focused in the area of the abdomen, same was prepped and draped in the usual sterile fashion. An appropriate time-out was then carried out. I proceeded to make a midline incision. The incision was carried through skin and subcutaneous tissue until the fascia was identified. The fascia was then carefully incised and the abdominal cavity was entered. There was gush of free air and there was also succus entericus. I then proceeded to use the Bookwalter for retraction. I sucked out the succus entericus. I then proceeded to identify the stomach. The succus entericus was coming from the left upper quadrant and there was also evidence of bowel obstruction. So at this point, I proceeded to locate the area of the succus entericus and was actually from the stomach. So, I proceeded to take down some of the short gastric and I was able to identify a perforated gastric ulcer of size about 4 cm wide. I then proceeded to check the stomach proceeded any other perforations and there was none. So at this point, I proceeded to excise the gastric ulcer by using the tissue load of the Endo-PAOLA to transect it. I then proceeded to run the bowel. The small bowel was dilated all the way to the proximal jejunum where there was a complete obstruction. There was a tight band that was obstructing the jejunum. Distally, the bowel was decompressed and then towards the ileum, there were other two areas of bowel obstruction, but they were . These were caused by bowel to bowel adhesions and also bowel to fibrous tissue adhesions. At this point, I proceeded to lyse all these adhesions to straighten the bowel. This was extensively done. Care was taken not to injure the bowel. I then inspected the right colon, the transverse colon, the sigmoid colon and the rectum and everything looked viable. I decided to resect the area of complete obstruction. Windows were created in the mesentery of the bowel and using the tissue load of the Endo-PAOLA, I proceeded to transect the small intestine in these 2 areas. The mesentery was then scored and mesenteric vessels were taken using the vascular load of the Endo-PAOLA. At this point, I then copiously irrigated the abdomen. Hemostasis was noted to be adequate. I then proceeded to carry out an omentectomy by removing the excess omentum. I then proceeded to carry out a small bowel anastomosis. The two cut end of the bowel was then anastomosed together in a stapled fashion [id number] and the anastomosis was completed using a TA-60. It was tested and noted to be mechanically patent with no tension. I then proceeded to copiously irrigate the abdomen. I then proceeded to place an ABThera wound VAC to come back and reinspect the bowel in a day or two. This concluded the procedure. Instrument and sponges count was found correct x 2. The patient was then taken to ICU, intubated, in guarded condition. TID: [id number] RECEIPT: [id number]
[2024-07-02] MEDS: hydrALAZine 20MG/ML VIAL IV PRN (23:51)
[2024-07-03] VITALS (60 sets, daily range): BP systolic 130–203; BP diastolic 61–97; PULSE 78–120; RESP 18–36; TEMP 96.5–98.8; O2SAT 96–100
[2024-07-03] MEDS: metoPROLOL tartRATE 1 MG/ML 5ML VIAL IV PRN (03:19)
[2024-07-03 04:05] LABS: BASOPHILS # (AUTO) 0.02 K/uL (0.00-0.20); BASOPHILS % (AUTO) 0.2 % (0.0-5.0); EOSINOPHILS # (AUTO) 0.01 K/uL (0.00-0.70); EOSINOPHILS % (AUTO) 0.1 % (0.0-8.0); HEMATOCRIT 21.1 % (36-48); IMMATURE GRANULOCYTE ABSOLUTE 0.16 K/uL (0-1); LYMPHOCYTES # (AUTO) 0.4 K/uL (1.0-4.8); MEAN CORPUSCULAR HEMOGLOBIN 29.5 pg (27.0-33.0); MEAN CORPUSCULAR HGB CONC 34.1 g/dL (32.0-36.0); MEAN CORPUSCULAR VOLUME 86.5 fL (79-99); MONOCYTES # (AUTO) 0.2 K/uL (0.1-1.0); MONOCYTES % (AUTO) 1.7 % (3.0-13.0); NEUTROPHILS # (AUTO) 11.1 K/uL (1.8-7.7); NEUTROPHILS % (AUTO) 93.6 % (40.0-77.0); NUCLEATED RED BLOOD CELLS 0.2 % (0.0-0.19); PLATELET COUNT (AUTO) 27 K/uL (130-400); RED BLOOD CELL COUNT(AUTO) 2.44 MIL/uL (4.00-5.50); RED CELL DISTRIBUTION WIDTH 15.9 % (11.0-15.5); WHITE BLOOD COUNT (AUTO) 11.8 K/uL (4.8-10.8)
[2024-07-03 04:21] LABS: ALBUMIN 3.1 g/dL (3.5-5.0); BILIRUBIN,TOTAL 1.4 mg/dL (0.2-1.0); CREATININE 1.2 mg/dL (0.5-1.0); MAGNESIUM 1.9 mg/dL (1.80-2.40); POTASSIUM 3.6 mmol/L (3.5-5.1); TOTAL PROTEIN, SERUM 4.6 g/dL (6.0-8.3)
--- NOTE | 2024-07-03 10:29 | PN ---
[facility] PROGRESS NOTE Date Patient Seen: Jul 03, 2024 Time of Visit: 10:10 Supervising Physician: Roly Monson MD Consulting Physician: [facility] Outpatient Specialists: [ ] Inpatient Consults: [ ] PROBLEM LIST: Acute hypoxic Respiratory failure POA Acute encephalopathy, in the setting of severe sepsis POA Acute bowel perforation with subsequent peritonitis s/p exploratory laparotomy 06/23/24 Dr. Valenzuela POA Culture + E-coli. Repeat exploratory laparotomy on 06/26/2024 with small bowel anastomosis, right colon and transverse colon resection, colostomy creation, ileostomy tube placement and wound VAC placement. S/P wound closure and 2 ZAIDA to abdomen on 06/30/24 Shock etiology sepsis POA Suspected intraabdominal hemorrhage Urinary tract infection, POA E-coli multisensitive Pneumonitis, culture + for E-coli Acute kidney injury, POA Lactic acidosis, POA Acute blood loss anemia Thrombocytopenia Chronic debility, POA DM type 2, POA GERD, POA History small-bowel obstruction History of fibromyalgia History of hypertension, now hypotensive in the setting of septic shock versus hemorrhagic shock INTERVAL HISTORY: Atrial overnight events. Patient continues with TPN at 75 mL/hours he is off pressors at hypertensive today blood pressure 181/94 heart rate of 101 saturating 100% on the vent with respiratory rate of 22. Vent settings with assist control volume control tidal volume 450 respiratory rate of FiO2 of 30% and PEEP of 5. No family at the bedside at this time. We are awaiting their decision in regards to tracheostomy vs comfort measures. Left gastrostomy drain output drained 620 eval, from colostomy 900 mL of dark maroon drainage, right ZAIDA drained 450 mL of serous and left ZAIDA 0 mL. WBCs 11.8 trending down H&H also trending down 7.2/21.1. Likely from GI bleed from colostomy. We will transfuse 1 unit of platelets 1 unit of PRBCs and1 unit of FFP for now. We will continue to trend H&H. Platelet count today is27 K. on chemistries sodium is127 potassium of 3.6 chloride of 93 carbon dioxide 29 BUN of84 creatinine 1.2 and GFR of . Total calcium of 7.5 total bili 1.4 AST seven ALT seven albumin of 3.1. Chest x-ray with minimal improvement to bilateral pulmonary infiltrates. ET tube in proper position. No pneumothorax. We will continue Lasix but stopped drip and continue with 20 mg q.6 hour IV. REVIEW OF SYSTEMS: Unable to obtain due to alteration in mental status PHYSICAL EXAM: GENERAL: on sedation vacation still no waking up and critically ill. HEENT: Sclera non icteric, dry mucosa NECK: Supple, no JVD, trachea midline LUNGS: Diminished bibasilar air. No wheezes HEART: Normal S1 and S2, without murmurs ABD: Abdomen is distended and tender to palpate. Bowel sounds present, Colostomy and ileostomy, wound vac, destiney lower abdomen j tube and Gastrostomy to drainage per gravity. EXT: No clubbing cyanosis BLE edema +3 NEURO: GCS of 5. off sedation Intubated, Vital Signs (last 8hr) Date Time Temp Pulse Resp B/P (MAP) Pulse Ox O2 Delivery O2 Flow Rate FiO2 07/03/24 08:16 98 27 183/88 100 Ventilator 30 07/03/24 07:46 106 28 173/85 100 Ventilator 30 07/03/24 07:16 96.4 102 24 167/84 100 Ventilator 30 07/03/24 07:00 104 27 100 Ventilator 07/03/24 06:35 30 07/03/24 06:25 120 30 07/03/24 06:00 107 24 176/71 (106) 100 07/03/24 05:00 114 25 181/77 (111) 99 07/03/24 04:00 110 25 170/83 (112) 100 07/03/24 04:00 100 Ventilator+ 30 07/03/24 04:00 98.4 Ventilator 30 07/03/24 03:19 115 179/88 07/03/24 03:00 110 26 179/88 (118) 100 07/03/24 02:50 120 30 07/03/24 02:35 30 LABS: Hematology Labs: Test 07/03/24 03:36 Range/Units White Blood Count 11.8 H 4.8-10.8 K/uL Red Blood Count 2.44 L 4.00-5.50 MIL/uL Hemoglobin 7.2 L 12.0-16.0 g/dL Hematocrit 21.1 L 36-48 % Mean Corpuscular Volume 86.5 79-99 fL Mean Corpuscular Hemoglobin 29.5 27.0-33.0 pg Mean Corpuscular Hemoglobin Concent 34.1 32.0-36.0 g/dL Red Cell Distribution Width 15.9 H 11.0-15.5 % Platelet Count 27 #L 130-400 K/uL Mean Platelet Volume 11.9 H 7.5-10.5 fL Immature Granulocyte % (Auto) 1.4 H 0-1 % Neutrophils (%) (Auto) 93.6 H 40.0-77.0 % Lymphocytes (%) (Auto) 3.0 L 21.0-51.0 % Monocytes (%) (Auto) 1.7 L 3.0-13.0 % Eosinophils (%) (Auto) 0.1 0.0-8.0 % Basophils (%) (Auto) 0.2 0.0-5.0 % Neutrophils # (Auto) 11.1 H 1.8-7.7 K/uL Lymphocytes # (Auto) 0.4 L 1.0-4.8 K/uL Monocytes # (Auto) 0.2 0.1-1.0 K/uL Eosinophils # (Auto) 0.01 0.00-0.70 K/uL Basophils # (Auto) 0.02 0.00-0.20 K/uL Absolute Immature Granulocyte (auto 0.16 0-1 K/uL Nucleated Red Blood Cells 0.2 H 0.0-0.19 % Chemistry Labs: Test 07/03/24 03:36 07/02/24 20:07 Range/Units Sodium Level 127 L 136-145 mmol/L Potassium Level 3.6 3.5-5.1 mmol/L Chloride Level 93 L 101-111 mmol/L Carbon Dioxide Level 29 21-32 mmol/L Blood Urea Nitrogen 84 *H 7-18 mg/dL Creatinine 1.2 H 0.5-1.0 mg/dL Glomerular Filtration Rate Calc 48 >90 mL/min Random Glucose 143 H 70-105 mg/dL Total Calcium 7.5 L 8.5-10.1 mg/dL Magnesium Level 1.90 1.80-2.40 mg/dL Total Bilirubin 1.4 H 0.2-1.0 mg/dL Aspartate Amino Transf (AST/SGOT) 7 L 10-37 U/L Alanine Aminotransferase (ALT/SGPT) 7 L 12-78 U/L Alkaline Phosphatase 71 50-136 U/L Total Protein 4.6 L 6.0-8.3 g/dL Albumin 3.1 L 3.5-5.0 g/dL Whole Blood Glucose 131 H 70-110 MG/DL Coagulation Labs: Test 07/01/24 11:56 Range/Units Prothrombin Time 12.8 H 9.6-11.6 SEC Prothromb Time International Ratio 1.23 H 0.85-1.15 Activated Partial Thromboplast Time 29.2 26.3-35.5 SEC Fibrinogen 583 *H 180-350 mg/dL DIAGNOSTICS / RADIOLOGY RESULTS: IMAGING REPORT Signed PATIENT: JOSÉ MIGUEL OSORIO MR#: [id number] : 1950 SEX: F AGE: 73 LOCATION: [facility] ORDER 2300 STATUS: ADM IN REPORT#: [id number] SERVICE 0600 REASON: intubated ORDERING PHYSICIAN: DEJAN STOREY PROCEDURE: CXR1VW - CHEST 1VW Exam Type: CHEST 1VW Clinical Information: intubated Comparison: None Findings: Pulmonary pattern is as before. No worrisome interval changes have taken place. Impression: Stable exam. DICTATED BY: NGOC ELIZABETH MD DATE: 07/03/24 1037 ELECTRONICALLY SIGNED BY: NGOC ELIZABETH MD DATE: 07/03/[address] Valenzuela keep off sedation and give IVP only for pain. Increase platelet count >80K. (per surgeon ordered 3 extra units of platelets) decision pending from [facility] for comfort measures VS tracheostomy. Continue ventilator support Continue off sedation with fentanyl pushes p.r.n. for pain CPOT Pain scale Transfuse 1 unit of PRBCs,1 unit of platelets 1 unit of FFP is Monitor colostomy output Monitor 2 ZAIDA output monitor Monitor gastrostomy output Trend H&H Antibiotics per ID NEURO: Minimize central acting medications as possible. Fall Precautions. Well lighted room through the day and minimize interruptions through the night to prevent acute delirium. PULMONARY: Supplemental 02 as needed Titrate Fio2 to keep Spo2 > or = 90% DuoNebs and CPT as needed IS hourly while awake for pulmonary hygiene Manage vent per abg ABG CARDIOVASCULAR: Follow hemodynamics. Titrate vasopressor to keep MAP >65 or systolic blood pressure >95mmHg Cardiac monitoring DIPS: TPN at 75 mL/hour LINES: Right upper arm PICC line LUE PICC Line GI & NUTRITION: NPO Aspirations precautions Prokinetic agents and laxatives as needed TPN KIDNEYS & ELECTROLYTES: Strict monitoring of intake and output Daily weights Avoid nephrotoxic agents Monitor electrolytes and replace as needed Goal urine output of 30mL/hr or 0.5mL/kg/hr ENDOCRINE: Maintain blood glucose between 100-180 at all times. Insulin sliding scale for blood glucose management INFECTIOUS DISEASE: Trend temperature. Clarke-culture if febrile. Micro: 06/24/2024: E coli in the urine. 06/25/2024: Peritoneal fluid positive for bacteroides uniformis and E coli. 06/25/2024: E coli of the sputum Antibiotics: Ceftazidime, Flagyl and fluconazole. HEMATOLOGY & COAGULATION: Monitor H&H. Keep Hgb > 7 Transfuse 1 unit of PRBC for Hgb < 7 Transfuse 1 pack of platelets of platelets < 20, 000 Watch for any signs and symptoms of bleeding SKIN: Pressure ulcer prevention per facility protocol Rehab: PT/OT Prophylaxis: GI: Protonix IV DVT: Bilateral SCDs Code Status: Full Resuscitation Disposition: ICU Other: I personally spent 40 minutes of critical care time in treatment of this patient. This includes patient management, time at bedside, time reviewing tests, labs, appropriate images and studies, documentation, and patient care coordination. This time excludes separately billable procedures. DEJAN STOREY Jul 03, 2024 10:28
--- NOTE | 2024-07-03 10:41 | HMCIMG ---
Exam Type: CHEST 1VW Clinical Information: intubated Comparison: None Findings: Pulmonary pattern is as before. No worrisome interval changes have taken place. Impression: Stable exam.
[2024-07-03] MEDS: furoSEMIDE 20MG VIAL IV SCH ×2 (11:15→21:11)
[2024-07-03] MEDS: hydrALAZine 20MG/ML VIAL IV PRN (11:44)
--- NOTE | 2024-07-03 12:58 | PN ---
[facility] PROGRESS NOTE Date of Service: Jul 03, 2024 Time of Service: 12:57 SUBJECTIVE: Ms. Chandler is a 73-year-old female, with a past medical history of hypertension, hypothyroidism, DM, anemia, fibromyalgia, recurrent SpO2 is, chronic left hip pain, cervical CA presented to the ER with the complaints of sharp CBC left lower quadrant abdominal pain with nausea and vomiting since 2 days. Initial vitals blood pressure 62/50 which improved on Levophed. Initial labs WBCs 26.3, lactic acid 6.7. CT abdomen/pelvis resulted in Large amount of free abdominal air is seen concerning for bowel perforation. Surgery consult was obtained. 06/23/2024 postop patient is seen and examined at the bedside. She is sedated on Diprivan and intubated. She underwent exploratory laparotomy 06/23/24 Dr. Valenzuela for perforated small bowel and subsequent peritonitis this morning. Vitals blood pressure 104/58, heart rate 146 on Phenylephrine and vasopressin. Labs WBC 37.4, BUN 2 , creatinine 1.7, magnesium 0.90, TSH 16.6. Lactic acid improved from 7.7- 5. Urinalysis positive for leukocyte esterase. Chest x-ray revealed prominent bilateral interstitial markings. 06/24/2024 Patient is seen at the bedside. She is currently sedated on fentanyl and midazolam. Vitals blood pressure 131/72 on vasopressin. Currently intubated with VT 450, peep 5 and respiratory rate 14. Labs WBC improved from 31.5-26.7, hemoglobin 11.2, BUN 25 , creatinine 2 , lactic acid 10.3. Urine culture resulted in E coli. 06/25/2024 Patient is seen at the bedside. She remains intubated and sedated on fentanyl and midazolam. Vitals blood pressure in 110s/60s. Labs WBC improved from 26.7-11.2, hemoglobin 10.3, BUN 26, creatinine improved from 2-1.5, lactic acid improved from 4.5-3.5. Urine culture, respiratory culture and abdominal site culture resulted in E coli organism. 06/26/24 patient remains sedated and intubated. She has gone down to OR for extensive abdominal surgery 06/27/24 Patient is mechanical ventilated and remains sedated. Patient is off pressors at this time. Patient is status post exploratory laparotomy on 06/22/2024 and right transverse colon resection with anastomosis and wound VAC placement as well as right colostomy and left urostomy day # 1. Patient is afebrile this morning, temperature is 98.2 and the WBC is 6.1. Patient has received 2 units of PRBC throughout the night and this morning for hemoglobin of 6.4 and will receive 1 unit of platelets for platelet level of 34. The linezolid was discontinued yesterday. Patient continues on ceftazidime, metronidazole and fluconazole 06/28/24 patient was seen and examined she remains on mechanical ventilation and sedated. Patient was requiring multiple transfusion products including both platelets and PRBCs. DIC? Who we will consult Hematology 06/29/2024 Patient is seen at the bedside. She remains sedated on fentanyl and midazolam and intubated, NG tube in place. Her blood pressure is ranging in between 130/70s to 140/70s. She is currently not on any vasopressors. Labs hemoglobin 11.1, platelets 134 post 2 unit PRBC and 4 platelet transfusions yesterday. Sodium 130, chloride 96, BUN 45, creatinine 1.3, BNP of 1430. Urinary output is 550m L. She is currently on Lasix drip at the rate of 5 mL/hour. Plan for wound closure by surgery consult tomorrow. 06/30/2024 Patient is seen at the bedside. She remains sedated on Versed and fentanyl. Intubated with VT 450, RR 18, FiO2 30%. Blood pressure ranging in 150s/70s, not on any vasopressors. Urine output of 1.2 L, on Lasix drip. WBC increased from 9.7-12.8, hemoglobin 10.3, platelet 85, BUN 57, creatinine improved from 1.3-1.2, phosphatase 248, albumin 1.4. Patient had undergone wound closure by surgery consult today. Chest x-ray revealed stable pulmonary pattern with no worrisome interval changes. 07/01 patient is seen and examined at bedside, remains in the ICU, patient with a acute bowel perforation with subsequent peritonitis, status post exploratory laparotomy 06/23/2024 by General surgery with a culture positive for E coli. Patient is status post repeat exploratory laparotomy 06/26/2024 with small bowel anastomosis, right colon and transfer colon resection, colostomy creation, ileostomy tube placement and wound VAC placement. Patient is status post wound closure and 2nd ZAIDA to abdomen on 06/30/2024. During my visit patient is off sedation, minimal withdrawal to painful stimulation, eyes open, remains intubated, on mechanical ventilation. Remains on Lasix drip. Getting broad- spectrum IV antibiotics. On low-dose Precedex. 07/02 patient is seen and examined at bedside, daughter at bedside, updated. During my visit patient remains intubated, case discussed with the RN, patient has been off sedation since earlier this morning in order to assess mental status. She remains on broad-spectrum IV antibiotics. She remains on Lasix drip. 07/03 07/02 patient is seen and examined at bedside, case discussed with the RN, patient remains intubated, mechanical ventilation, require fentanyl last night. Currently she is off vasopressors. Case discussed with critical Care, no family members at bedside, awaiting family decision in regards of tracheostomy versus comfort measures. We will continue to follow. REVIEW OF SYSTEMS: Not able to get a proper history as the patient is sedated CONSTITUTIONAL: Denies fevers, chills, or night sweats. No unintentional weight loss reported. NEUROLOGICAL: Denies headache, amaurosis fugax, motor weakness, sensory deficit, vertigo/spinning sensation, gait abnormalities, or tremors. ENT: No hearing loss, otalgia, otorrhea, rhinitis, rhinorrhea, hoarseness, or sore throat. CARDIOVASCULAR: Denies any exertional angina, dyspnea on exertion, orthopnea, paroxysmal nocturnal dyspnea, palpitations, life-threatening arrhythmias, claudication. PULMONARY: Denies any shortness of breath, cough, phlegm/sputum, hemoptysis, pleuritic chest pain. SLEEP: Denies morning headaches, daytime somnolence or napping. Denies difficulty falling asleep, staying asleep, waking from sleep. Denies knowledge of snoring. GASTROINTESTINAL: Denies any type of dysphagia to either liquids or solids. Denies nausea, vomiting, pyrosis, early satiety, abdominal pain, diarrhea, constipation, or changes in stool consistency or caliber. Denies coffee-ground emesis, hematemesis, hematochezia, or melanotic stools. GENITOURINARY: Denies frequency, urgency, nocturia, hematuria or incontinence (Storage/Irritative symptoms.) Low urinary stream, straining to void, urinary intermittency or hesitancy, splitting of the voiding stream, terminal dribbling. ENDOCRINOLOGIC: Denies polyuria, polydipsia, polyphagia or heat/cold intolerances. HEMATOLOGIC: Denies thrombophilia/previous clots, or coagulopathy/bleeding disorders. ONCOLOGIC: Denies personal history of malignancy. DERMATOLOGIC: Denies rashes or pruritus. PSYCHIATRIC: Denies any suicidal or homicidal ideation. Denies hallucinations. PHYSICAL EXAM GENERAL APPEARANCE: The patient is sedated, intubated NEUROLOGICAL: Cranial nerves II-XII grossly intact. Motor is 5/5 in bilateral upper and lower extremities proximal to distal. No sensory deficits. HEENT: Face is symmetric. Pupils are equal and reactive. Extraocular movements are intact. NECK: Supple. No JVD. No thyromegaly. No submental, submandibular, pre- /postauricular, occipital or supraclavicular lymphadenopathy. CHEST: Normal chest expansion. No Telemetry. LUNGS: Absence of any rales, rhonchi or any wheezing. CARDIOVASCULAR: Regular. S1 and S2 normal. No appreciable rubs, murmurs or gallops. ABDOMEN: Soft, nontender, and nondistended. There is no rebound, voluntary guarding, or rigidity. : Deferred. No Hearn. EXTREMITIES: No clubbing. Bilateral lower extremity edema Good capillary refill. SKIN: Sacral ulcer, No skin breakdown. Vital Signs (last 8hr) Date Time Temp Pulse Resp B/P (MAP) Pulse Ox O2 Delivery O2 Flow Rate FiO2 07/03/24 12:07 109 30 07/03/24 08:16 98 27 183/88 100 Ventilator 30 07/03/24 07:46 106 28 173/85 100 Ventilator 30 07/03/24 07:16 96.4 102 24 167/84 100 Ventilator 30 07/03/24 07:00 104 27 100 Ventilator 07/03/24 06:35 30 07/03/24 06:25 120 30 07/03/24 06:00 107 24 176/71 (106) 100 07/03/24 05:00 114 25 181/77 (111) 99 LABS: Laboratory: Test 07/03/24 11:50 07/03/24 03:36 07/02/24 15:22 Range/Units Whole Blood Glucose 157 H 70-110 MG/DL White Blood Count 11.8 H 4.8-10.8 K/uL Red Blood Count 2.44 L 4.00-5.50 MIL/uL Hemoglobin 7.2 L 12.0-16.0 g/dL Hematocrit 21.1 L 36-48 % Mean Corpuscular Volume 86.5 79-99 fL Mean Corpuscular Hemoglobin 29.5 27.0-33.0 pg Mean Corpuscular Hemoglobin Concent 34.1 32.0-36.0 g/dL Red Cell Distribution Width 15.9 H 11.0-15.5 % Platelet Count 27 #L 130-400 K/uL Mean Platelet Volume 11.9 H 7.5-10.5 fL Immature Granulocyte % (Auto) 1.4 H 0-1 % Neutrophils (%) (Auto) 93.6 H 40.0-77.0 % Lymphocytes (%) (Auto) 3.0 L 21.0-51.0 % Monocytes (%) (Auto) 1.7 L 3.0-13.0 % Eosinophils (%) (Auto) 0.1 0.0-8.0 % Basophils (%) (Auto) 0.2 0.0-5.0 % Neutrophils # (Auto) 11.1 H 1.8-7.7 K/uL Lymphocytes # (Auto) 0.4 L 1.0-4.8 K/uL Monocytes # (Auto) 0.2 0.1-1.0 K/uL Eosinophils # (Auto) 0.01 0.00-0.70 K/uL Basophils # (Auto) 0.02 0.00-0.20 K/uL Absolute Immature Granulocyte (auto 0.16 0-1 K/uL Nucleated Red Blood Cells 0.2 H 0.0-0.19 % Sodium Level 127 L 136-145 mmol/L Potassium Level 3.6 3.5-5.1 mmol/L Chloride Level 93 L 101-111 mmol/L Carbon Dioxide Level 29 21-32 mmol/L Blood Urea Nitrogen 84 *H 7-18 mg/dL Creatinine 1.2 H 0.5-1.0 mg/dL Glomerular Filtration Rate Calc 48 >90 mL/min Random Glucose 143 H 70-105 mg/dL Total Calcium 7.5 L 8.5-10.1 mg/dL Magnesium Level 1.90 1.80-2.40 mg/dL Total Bilirubin 1.4 H 0.2-1.0 mg/dL Aspartate Amino Transf (AST/SGOT) 7 L 10-37 U/L Alanine Aminotransferase (ALT/SGPT) 7 L 12-78 U/L Alkaline Phosphatase 71 50-136 U/L Total Protein 4.6 L 6.0-8.3 g/dL Albumin 3.1 L 3.5-5.0 g/dL Blood Gas Specimen Type Arterial Arterial Blood pH 7.472 H 7.350-7.450 Arterial Blood Partial Pressure CO2 33 32-45 mmHg Arterial Blood Partial Pressure O2 88.3 83.0-108.0 mmHg Arterial Blood HCO3 23.8 21.0-28.0 mmol/L Arterial Blood Oxygen Saturation 96.6 94.0-98.0 % Arterial Blood Base Excess 0.5 -2.0-3.0 mmol/L Hemoglobin (Blood Gas) 9.4 L 12.0-16.0 g/dL Sodium (Blood Gas) 126 L 136-145 MMOL/L Bedside Potassium (Blood Gas) 3.3 L 3.4-4.5 MMOL/L Bedside Chloride (Blood Gas) 94 L 98-107 MMOL/L Bedside Glucose (Blood Gas) 103 H 65-95 MG/DL Bedside Ionized Calcium (Blood Gas) 1.02 L 1.15-1.33 MMOL/L Bedside Lactic Acid (Blood Gas) 1.03 H 0.36-0.75 MMOL/L Blood Gas Temperature 37.0 35.5-37.0 CELSIUS Blood Gas Respiration Rate 18.0 min. Blood Gas Vent Mode AC-VC ROOM AIR FiO2 30.0 % Blood Gas Tidal Volume 450 ml Blood Gas PEEP 5 cm H2O Blood Gas Specimen Comment LR REJI Current Medications Medications (Trade) Dose Ordered Sig/Dionisio Route PRN Reason Start Time Stop Time Status Last Admin Dose Admin Acetaminophen (TYLenol 325MG TAB) 650 mg Q4H PRN PO TEMPERATURE GREATER THAN 101.5 06/23/24 03:30 07/23/24 03:29 Acetaminophen (TYLenol 650MG SUPPOSITORY) 650 mg Q6H PRN RC MILD PAIN (1-3) 06/22/24 20:30 07/22/24 20:29 Albumin Human 50 ml @ 0 mls/hr AD IV 06/26/24 17:30 06/26/24 17:32 DC Albumin Human 100 ml @ 0 mls/hr Q6H IV 07/01/24 12:00 07/03/24 11:59 DC 07/03/24 05:31 100 MLS/HR Albumin Human 100 ml @ 0 mls/hr Q6H6 IV 06/23/24 00:00 06/23/24 12:52 DC Albumin Human 250 ml @ 400 mls/hr AD IV 06/26/24 17:30 06/27/24 18:03 DC 06/26/24 17:36 400 MLS/HR Albumin Human 250 ml @ 0 mls/hr AD IV 06/23/24 11:30 06/24/24 11:29 DC 06/24/24 13:26 400 MLS/HR Albumin Human 250 ml @ 0 mls/hr AD IV 06/24/24 12:00 06/24/24 13:21 DC Aminocaproic Acid 18041 mg/Sodium Chloride 500 ml @ 0 mls/hr AD IV 06/27/24 19:30 06/27/24 18:37 DC Artificial Tears (Artificial Tears) 1 DROP BID OU 06/24/24 21:00 07/24/24 20:59 07/03/24 09:46 1 DROP Calcium Gluconate 1 gm/Sodium Chloride 100 ml @ 0 mls/hr PROTOCOL IV 06/29/24 08:30 07/29/24 08:29 Calcium Gluconate 1 gm/Sodium Chloride 100 ml @ 0 mls/hr PROTOCOL IV 06/26/24 16:00 06/29/24 08:10 DC 06/26/24 16:57 400 MLS/HR Calcium Gluconate 2 gm/Sodium Chloride 120 ml @ 120 mls/hr PROTOCOL PRN IV WHEN 2G DOSE IS NEEDED 06/28/24 00:30 07/28/24 00:29 06/28/24 01:06 120 MLS/HR Cefepime HCl (MAXipime 2 gm vial) 2 gm Q12H IVPB 06/22/24 21:00 06/23/24 03:25 DC 06/22/24 22:03 2 GM Cefepime HCl (MAXipime 2 gm vial) 2 gm Q24H IVPB 06/23/24 21:00 06/23/24 21:47 DC 06/23/24 21:15 2 GM Ceftazidime (ForTAZ/TAZidime) 1 gm Q24H IVPB 06/24/24 01:30 07/04/24 01:29 07/03/24 01:01 1 GM Dexmedetomidine/ Sodium Chloride (PRECEdex 200MCG/ 50ML-NS) 200 mcg PROTOCOL IV 07/01/24 12:00 07/31/24 11:59 07/02/24 07:19 200 MCG Enoxaparin Sodium (Lovenox) 30 mg DAILY SQ 06/23/24 09:00 06/30/24 09:13 DC 06/25/24 07:35 30 MG Fat Emulsion Intravenous 250 ml @ 42 mls/hr DAILY10 IV 06/24/24 10:00 06/24/24 13:22 DC 06/24/24 10:07 42 MLS/HR Fat Emulsion Intravenous 250 ml @ 42 mls/hr MoWeFr IV 06/29/24 20:18 07/29/24 20:17 Cancel Fat Emulsion Intravenous 250 ml @ 42 mls/hr QMOWEFR@1000 IV 06/26/24 10:00 07/24/24 09:59 07/03/24 09:47 42 MLS/HR Fentanyl Citrate 100 ml @ 2.5 mls/hr PROTOCOL IV 06/23/24 09:00 06/26/24 20:27 DC 06/26/24 17:13 2.5 MLS/HR Fentanyl Citrate (FENTanyl CITRate PF 50 MCG/ 1 ML 2ML VIAL) 50 mcg Q4H PRN IVP MODERATE PAIN (4-6) 07/01/24 12:00 07/31/24 11:59 07/03/24 11:16 50 MCG Fentanyl Citrate 2500 mcg/Sodium Chloride 250 ml @ 0 mls/hr AD PRN IV TITRATE 06/26/24 20:30 06/26/24 20:41 DC Fentanyl/Sodium Chloride 250 ml @ 0 mls/hr PROTOCOL IV 06/26/24 21:00 07/01/24 12:21 DC 07/01/24 04:55 27.5 MLS/HR Fluconazole/ Sodium Chloride (DiFLUCan 200 MG/ NS 100 ML) 200 mg Q24H IVPB 06/23/24 03:30 07/23/24 03:29 07/03/24 03:19 200 MG Furosemide (LASix 20MG VIAL) 20 mg ONCE STAT IV 06/25/24 15:49 06/25/24 15:50 DC 06/25/24 16:11 20 MG Furosemide (LASix 20MG VIAL) 20 mg Q6H IV 07/03/24 10:30 08/02/24 10:29 07/03/24 11:15 20 MG Furosemide (LASix 20MG VIAL) 20 mg Q8H IV 06/25/24 17:30 06/27/24 17:29 DC 06/27/24 10:01 20 MG Furosemide (LASix 20MG VIAL) 20 mg Q8H IV 06/28/24 20:00 06/29/24 10:14 DC 06/29/24 03:04 20 MG Furosemide 100 mg/ Sodium Chloride 100 ml @ 0 mls/hr PROTOCOL IV 06/29/24 10:30 07/29/24 10:29 Hold 07/02/24 00:47 10 MLS/HR Furosemide 100 mg/ Sodium Chloride 100 ml @ 0 mls/hr PROTOCOL IV 06/23/24 12:00 06/23/24 12:44 DC 06/23/24 11:37 5 MLS/HR Heparin Sodium (Porcine) (HEParin 5,000 UNIT VIAL) 5,000 unit BID SQ 06/22/24 21:00 06/22/24 20:48 DC Hydralazine HCl (APRESOLine 20MG INJ) 5 mg Q4H PRN IV ADMINISTER FOR SBP > 160 07/03/24 00:00 07/03/24 10:14 DC 07/03/24 09:47 5 MG Hydralazine HCl (APRESOLine 20MG INJ) 10 mg Q4H PRN IV ADMINISTER FOR SBP > 160 07/03/24 12:00 08/02/24 11:59 07/03/24 11:44 10 MG Hydrocortisone Sodium Succinate (Solu-corTEF 100MG) 25 mg Q12H IV 06/26/24 14:00 07/23/24 08:59 07/03/24 02:46 25 MG Hydrocortisone Sodium Succinate (Solu-corTEF 100MG) 50 mg Q6H6 IV 06/23/24 09:00 06/26/24 13:48 DC 06/26/24 05:33 50 MG Hydromorphone HCl (DiLAUDid 1MG INJ) 1 mg Q3H3 PRN IVP SEVERE PAIN (7-10) 06/23/24 03:30 06/28/24 03:29 DC Insulin Human Regular (humuLIN R 100 UNIT/ML 3ML) INSULIN SLIDING SCAL... ACHS SQ 06/29/24 21:00 07/29/24 20:59 06/30/24 20:54 2 UNIT Insulin Human Regular (humuLIN R 100 UNIT/ML 3ML) INSULIN SLIDING SCAL... ACHS SQ 06/22/24 21:00 06/24/24 15:37 DC 06/24/24 10:09 6 UNIT Insulin Human Regular (humuLIN R 100 UNIT/ML 3ML) INSULIN SLIDING SCAL... Q6H6 SQ 06/24/24 18:00 06/25/24 06:25 DC 06/24/24 23:32 7 UNIT Insulin Human Regular 100 unit/ Sodium Chloride 100 ml @ 0 mls/hr AD IV 06/25/24 06:30 07/02/24 06:29 DC 06/28/24 01:08 3 MLS/HR Ketorolac Tromethamine (toRADol) 15 mg Q6H PRN IV MODERATE PAIN (4-6) 06/23/24 03:30 06/27/24 18:23 DC Lactated Ringer's 1,000 ml @ 40 mls/hr Q24H IV 06/26/24 20:30 07/01/24 14:06 DC 06/30/24 17:48 40 MLS/HR Lactated Ringer's 1,000 ml @ 125 mls/hr Q8H IV 06/22/24 20:30 06/23/24 12:44 DC 06/23/24 11:23 125 MLS/HR Lactated Ringer's (Lactated Ringers 1000ml) 500 ml BOLUS IV 06/23/24 05:30 06/24/24 13:22 DC Linezolid 300 ml @ 150 mls/hr Q12H IV 06/23/24 15:00 06/26/24 10:34 DC 06/26/24 03:27 150 MLS/HR Magnesium Sulfate 50 ml @ 0 mls/hr PROTOCOL IV 06/23/24 04:30 07/23/24 04:29 07/03/24 05:39 25 MLS/HR Magnesium Sulfate (Magnesium 4gm Premix 100ml) 4 gm AD IV 06/23/24 05:30 06/23/24 05:59 DC Metoprolol Tartrate (loprESSOR) 2.5 mg Q6H PRN IV INCREASED HEART RATE 07/03/24 03:30 08/02/24 03:29 07/03/24 11:46 2.5 MG Metoprolol Tartrate (loprESSOR) 5 mg ONCE IV 06/26/24 17:00 06/26/24 21:30 DC 06/26/24 17:28 5 MG Metoprolol Tartrate (loprESSOR) 5 mg ONCE STAT IV 07/02/24 15:26 07/02/24 15:28 DC 07/02/24 15:30 5 MG Metronidazole/ Sodium Chloride 100 ml @ 100 mls/hr Q8H6 IVPB 06/23/24 14:00 07/03/24 13:59 07/03/24 05:31 100 MLS/HR Midazolam HCl 100 ml @ 0 mls/hr AD PRN IV TITRATE 06/23/24 22:00 07/01/24 12:21 DC 06/30/24 19:17 7 MLS/HR Morphine Sulfate (morPHINE 2MG SYG) 2 mg Q4H PRN IVP SEVERE PAIN (7-10) 06/22/24 20:30 06/23/24 03:21 DC Multivitamins/ Minerals 10 ml/ Amino Acids/ Electrolytes/ Dextrose 2,000 ml @ 83 mls/hr AD IV 06/26/24 20:30 06/27/24 18:02 DC 06/26/24 21:58 83 MLS/HR Norepinephrine 250 ml @ 0 mls/hr PROTOCOL IV 06/22/24 19:30 06/23/24 03:51 DC 06/22/24 20:15 45 MLS/HR Norepinephrine Bitartrate 32 mg/ Sodium Chloride 250 ml @ 0 mls/hr Q0M STAT IV 06/23/24 03:47 06/23/24 03:52 DC 06/23/24 07:22 32.8 MLS/HR Ondansetron HCl (zoFRAN 4MG INJ) 4 mg Q6H PRN IV NAUSEA/VOMITING 06/22/24 20:30 07/22/24 20:29 Ondansetron HCl (zoFRAN 4MG INJ) 4 mg Q6H PRN IVP NAUSEA/VOMITING 06/23/24 03:30 06/23/24 03:18 DC Pantoprazole Sodium (PROTonix 40MG INJ) 40 mg BID IVP 06/23/24 09:00 07/23/24 08:59 07/03/24 09:46 40 MG Pantoprazole Sodium (PROTonix 40MG INJ) 40 mg DAILY IV 06/23/24 09:00 06/23/24 03:19 DC Pharmacy Profile Note (Lace Assessment) 1 each AD MISC 06/24/24 14:00 06/24/24 13:53 DC Pharmacy Profile Note (Pharmacy Communication) 1 each ONCE MISC 06/23/24 14:00 06/23/24 13:46 DC Pharmacy Profile Note (Pharmacy Communication) 1 each ONCE MISC 06/27/24 19:00 06/27/24 18:50 DC Pharmacy Profile Note (Pharmacy Communication) 1 each ONCE STAT MISC 06/25/24 17:11 06/26/24 15:42 DC Phenylephrine HCl 100 mg/Sodium Chloride 250 ml @ 0 mls/hr PROTOCOL IV 06/23/24 08:30 07/23/24 08:29 06/23/24 13:00 32.67 MLS/HR Piperacillin Sod/ Tazobactam Sod (Zosyn 3.375gm+NS 50ml) 3.375 gm Q8H IVPB 06/23/24 03:30 06/23/24 04:34 DC Potassium Chloride 100 ml @ 50 mls/hr AD PRN IV POTASSIUM PROTOCOL 06/23/24 05:30 07/23/24 05:29 07/03/24 07:22 50 MLS/HR Propofol (DIPRivan 1000MG/ 100ML) 1,000 mg PROTOCOL PRN IV SEDATION 06/23/24 03:30 07/02/24 10:54 DC 06/23/24 04:06 1,000 MG Sodium Bicarbonate 150 meq/Dextrose 1,150 ml @ 50 mls/hr Q23H IV 06/26/24 23:00 06/26/24 22:55 DC Sodium Bicarbonate 150 meq/Dextrose 1,150 ml @ 50 mls/hr Q23H IVP 06/23/24 13:00 06/25/24 17:25 DC 06/24/24 19:34 50 MLS/HR Sodium Bicarbonate 150 meq/Dextrose 1,150 ml @ 50 mls/hr Q23H IVP 06/26/24 23:00 06/27/24 17:57 DC 06/27/24 00:56 50 MLS/HR Sodium Bicarbonate 150 meq/Sodium Chloride 1,150 ml @ 50 mls/hr Q23H IVP 06/25/24 17:30 06/25/24 17:52 DC 06/25/24 17:42 50 MLS/HR Sodium Bicarbonate 150 meq/Sterile Water 1,150 ml @ 50 mls/hr Q23H IVP 06/25/24 18:00 06/26/24 14:36 DC 06/25/24 18:18 50 MLS/HR Sodium Chloride 1,000 ml @ 0 mls/hr Q0M IV 06/23/24 12:00 07/23/24 11:59 06/23/24 15:43 1,000 MLS/HR Sodium Chloride (NS 50ml) 50 ml AD IV 06/23/24 03:30 06/23/24 03:26 DC Vasopressin 20 units/Sodium Chloride 100 ml @ 0 mls/hr PROTOCOL IV 06/22/24 20:30 07/22/24 20:29 06/24/24 08:43 6 MLS/HR DIAGNOSTICS / RADIOLOGY: [ ] ASSESSMENT: PLAN: Acute hypoxic Respiratory failure POA Acute encephalopathy, in the setting of severe sepsis POA Acute bowel perforation with subsequent peritonitis s/p exploratory laparotomy 06/23/24 Dr. Bianca PRAKASH Culture + E-coli. Repeat exploratory laparotomy on 06/26/2024 with small bowel anastomosis, right colon and transverse colon resection, colostomy creation, ileostomy tube placement and wound VAC placement. S/P wound closure and 2 ZAIDA to abdomen on 06/30/24 Shock etiology sepsis POA Suspected intraabdominal hemorrhage Urinary tract infection, POA E-coli multisensitive Pneumonitis, culture + for E-coli Acute kidney injury, POA Lactic acidosis, POA Acute blood loss anemia Thrombocytopenia Chronic debility, POA DM type 2, POA GERD, POA History small-bowel obstruction History of fibromyalgia History of hypertension, now hypotensive in the setting of septic shock versus hemorrhagic shock PLAN: Patient remains admitted to the ICU Patient with a Acute bowel perforation with subsequent peritonitis s/p exploratory laparotomy 06/23/24 Dr. Bianca PRAKASH Culture + E-coli. Repeat exploratory laparotomy on 06/26/2024 with small bowel anastomosis, right colon and transverse colon resection, colostomy creation, ileostomy tube placement and wound VAC placement. S/P wound closure and 2 ZAIDA to abdomen on 06/30/24 Remains intubated, on mechanical ventilation. Wean as tolerated Continue Lasix drip Continue broad-spectrum IV antibiotics Continue to follow surgical input and recommendations Continue to follow critical care input recommendations Awaiting family to make decision in regards to tracheostomy versus comfort measures. NEURO: Minimize central acting medications as possible. Fall Precautions. Well lighted room through the day and minimize interruptions through the night to prevent acute delirium. PULMONARY: Supplemental 02 as needed BiPAP as necessary, for respiratory distress Titrate Fio2 to keep Spo2 > or = 90% DuoNebs and CPT as needed IS hourly while awake for pulmonary hygiene prn Out of bed to chair as tolerated Maintain aspiration precautions at all times CARDIOVASCULAR: Follow hemodynamics. Vital signs per facility protocol GI & NUTRITION: Continue nutritional support Aspirations precautions Prokinetic agents and laxatives as needed KIDNEYS & ELECTROLYTES: Strict monitoring of intake and output Daily weights Avoid nephrotoxic agents Monitor electrolytes and replace as needed Goal urine output of 30mL/hr or 0.5mL/kg/hr Medications to be dosed according to renal function. Avoid contrast if possible ENDOCRINE: Maintain blood glucose between 100-180 at all times. Insulin sliding scale for blood glucose management Hypoglycemia and hyperglycemia protocol in place INFECTIOUS DISEASE: Trend temperature, WBC and procalcitonin level Follow cultures, deescalate antibiotics as soon as possible. Panculture if new onset fever HEMATOLOGY & COAGULATION: Monitor H&H. Keep Hgb > 7 Transfuse 1 unit of PRBC for Hgb < 7 Transfuse 1 pack of platelets of platelets < 20, 000 Watch for any signs and symptoms of bleeding SKIN: Pressure ulcer prevention per facility protocol Specialty mattress as needed ORTHO/REHAB Continue PT/OT PRN: MEDICATIONS Tylenol 650 mg po every 4 hrs for fever zofran 4 mg IV every 6 hrs for n/v Hydralazine 5 mg IV every 4 hrs systolic pressure > 160 bowel regiment: lactulose 20 gm PO BID PRN constipation Supportive measures: Continue GI and DVT prophylaxis Disposition: Pending improvement in clinical condition. All questions answered time spent: > 35 min MARTIN GALINDO MD Jul 03, 2024 12:58
[2024-07-03 17:39] LABS: BASOPHILS # (AUTO) 0.02 K/uL (0.00-0.20); BASOPHILS % (AUTO) 0.2 % (0.0-5.0); HEMATOCRIT 21.8 % (36-48); IMMATURE GRANULOCYTE ABSOLUTE 0.16 K/uL (0-1); LYMPHOCYTES # (AUTO) 0.4 K/uL (1.0-4.8); LYMPHOCYTES % (AUTO) 3.3 % (21.0-51.0); MEAN CORPUSCULAR HEMOGLOBIN 30.7 pg (27.0-33.0); MEAN CORPUSCULAR HGB CONC 35.8 g/dL (32.0-36.0); MEAN CORPUSCULAR VOLUME 85.8 fL (79-99); MONOCYTES # (AUTO) 0.2 K/uL (0.1-1.0); MONOCYTES % (AUTO) 2.2 % (3.0-13.0); NEUTROPHILS # (AUTO) 9.8 K/uL (1.8-7.7); NEUTROPHILS % (AUTO) 92.8 % (40.0-77.0); NUCLEATED RED BLOOD CELLS 0.2 % (0.0-0.19); PLATELET COUNT (AUTO) 24 K/uL (130-400); RED BLOOD CELL COUNT(AUTO) 2.54 MIL/uL (4.00-5.50); RED CELL DISTRIBUTION WIDTH 15.7 % (11.0-15.5); WHITE BLOOD COUNT (AUTO) 10.5 K/uL (4.8-10.8)
[2024-07-03 17:48] LABS: INR 1.38 (0.85-1.15); PROTHROMBIN TIME 14.2 SEC (9.6-11.6)
[2024-07-03] MEDS: M.V.I. IV [ADULT] 10 ML in CLINIMIX-E 5%AA /D15%W 2000ML 2,000 ML IV ONE (20:28)
--- NOTE | 2024-07-03 21:11 | PN ---
INFECTIOUS DISEASE FOLLOWUP NOTE DATE OF SERVICE: 07/03/2024 SUBJECTIVE: The patient is seen and examined at bedside today. No fever or chills. Remained in the ICU. The patient is off sedation, but yet to wake up. The patient continued to require blood transfusion. Ileostomy output remained bloody. was updated at the bedside this afternoon. The patient remained on ventilatory support. FiO2 is at 30%. PHYSICAL EXAMINATION: VITAL SIGNS: Temperature 98.8. EYES: No icterus. Pupils equal and reactive. HENT: NG tube connected to suction. LUNGS: Crackles bilaterally, no rhonchi. CARDIOVASCULAR: S1, S2 regular. No murmur heard. ABDOMEN: Obese, soft. Bowel sound is absent. Midline surgical incision sealed with a wound vacuum. Ileostomy on the right side, which is draining bloody output. CENTRAL NERVOUS SYSTEM: The patient is encephalopathic, nonverbal. Open eyes, but does not follow any command. SKIN: No rashes, no itchiness. LYMPHATIC: No peripheral lymphadenopathy. EXTREMITIES: Generalized anasarca. BACK: Stage III ulcer in the sacrococcygeal area. GENITOURINARY: Hearn catheter in place. No hematuria. ASSESSMENT: A 73-year-old female admitted with abdominal pain. Current problems include: * Septic shock. * Intestinal perforation, status post exploratory laparotomy and bowel resection. * Intraabdominal abscess. * Peritonitis. * Thrombocytopenia. * Anemia, status post transfusion. * Gastrointestinal bleed. * Sacrococcygeal ulcer. * Morbid obesity. PLAN: * Continue ceftazidime. * Continue fluconazole. * Continue Flagyl. * Continue critical care support. * Transfuse as needed. * Monitor hemoglobin and hematocrit. * Continue TPN. * Monitor electrolytes and correct as needed. TID: [id number] RECEIPT: [id number]
[2024-07-04] VITALS (33 sets, daily range): BP systolic 136–187; BP diastolic 65–132; PULSE 83–139; RESP 21–39; TEMP 98.4–98.9; O2SAT 97–100
[2024-07-04 04:42] LABS: ALBUMIN 2.5 g/dL (3.5-5.0); BILIRUBIN,TOTAL 1.1 mg/dL (0.2-1.0); CREATININE 1.1 mg/dL (0.5-1.0); MAGNESIUM 2.1 mg/dL (1.80-2.40); POTASSIUM 3.2 mmol/L (3.5-5.1); TOTAL PROTEIN, SERUM 4.6 g/dL (6.0-8.3)
[2024-07-04] MEDS: furoSEMIDE 20MG VIAL IV SCH (06:11)
[2024-07-04] MEDS: metoPROLOL tartRATE 1 MG/ML 5ML VIAL IV PRN (06:12)
[2024-07-04 06:19] LABS: LYMPHOCYTES # (AUTO) 0.2 K/uL (1.0-4.8); MEAN CORPUSCULAR HEMOGLOBIN 29.5 pg (27.0-33.0); RED BLOOD CELL COUNT(AUTO) 1.83 MIL/uL (4.00-5.50)
[2024-07-04 07:10] LABS: BASOPHILS # (AUTO) 0.02 K/uL (0.00-0.20); BASOPHILS % (AUTO) 0.2 % (0.0-5.0); IMMATURE GRANULOCYTE ABSOLUTE 0.09 K/uL (0-1); LYMPHOCYTES % (AUTO) 1.4 % (21.0-51.0); MEAN CORPUSCULAR HGB CONC 34.2 g/dL (32.0-36.0); MEAN CORPUSCULAR VOLUME 86.3 fL (79-99); MONOCYTES # (AUTO) 0.2 K/uL (0.1-1.0); MONOCYTES % (AUTO) 2.3 % (3.0-13.0); NEUTROPHILS # (AUTO) 9.9 K/uL (1.8-7.7); NEUTROPHILS % (AUTO) 95.2 % (40.0-77.0); RED CELL DISTRIBUTION WIDTH 16.1 % (11.0-15.5); WHITE BLOOD COUNT (AUTO) 10.4 K/uL (4.8-10.8)
[2024-07-04 07:21] LABS: HEMATOCRIT 15.8 % (36-48); PLATELET COUNT (AUTO) 50 K/uL (130-400)
--- NOTE | 2024-07-04 08:54 | NUR ---
MRS OSORIO IS SHOWING SIGNS OF BLEEDING/PAIN. SHE IS ASYNCHRONOUS WITH VENT AND HAS GASPING TYPE RESPIRATORY PATTERN - GAVE HER PRN FENTANYL ORDERED AND STARTED A UNIT OF PRBC. DR GALINDO IS AWARE OF PTS POOR CONDITION . DNR IN PLACE. WILL TALK WITH FAMILY ABOUT END OF LIFE ISSUES WHEN THEY ARRIVE. SHE IS OOZING BLOOD FROM WOUND VAC AND OSTOMY IS DARK BLOOD TINGED.
--- NOTE | 2024-07-04 09:05 | PN ---
[facility] PROGRESS NOTE Date of Service: Jul 04, 2024 Time of Service: 09:04 SUBJECTIVE: Ms. Chandler is a 73-year-old female, with a past medical history of hypertension, hypothyroidism, DM, anemia, fibromyalgia, recurrent SpO2 is, chronic left hip pain, cervical CA presented to the ER with the complaints of sharp CBC left lower quadrant abdominal pain with nausea and vomiting since 2 days. Initial vitals blood pressure 62/50 which improved on Levophed. Initial labs WBCs 26.3, lactic acid 6.7. CT abdomen/pelvis resulted in Large amount of free abdominal air is seen concerning for bowel perforation. Surgery consult was obtained. 06/23/2024 postop patient is seen and examined at the bedside. She is sedated on Diprivan and intubated. She underwent exploratory laparotomy 06/23/24 Dr. Valenzuela for perforated small bowel and subsequent peritonitis this morning. Vitals blood pressure 104/58, heart rate 146 on Phenylephrine and vasopressin. Labs WBC 37.4, BUN 2 , creatinine 1.7, magnesium 0.90, TSH 16.6. Lactic acid improved from 7.7- 5. Urinalysis positive for leukocyte esterase. Chest x-ray revealed prominent bilateral interstitial markings. 06/24/2024 Patient is seen at the bedside. She is currently sedated on fentanyl and midazolam. Vitals blood pressure 131/72 on vasopressin. Currently intubated with VT 450, peep 5 and respiratory rate 14. Labs WBC improved from 31.5-26.7, hemoglobin 11.2, BUN 25 , creatinine 2 , lactic acid 10.3. Urine culture resulted in E coli. 06/25/2024 Patient is seen at the bedside. She remains intubated and sedated on fentanyl and midazolam. Vitals blood pressure in 110s/60s. Labs WBC improved from 26.7-11.2, hemoglobin 10.3, BUN 26, creatinine improved from 2-1.5, lactic acid improved from 4.5-3.5. Urine culture, respiratory culture and abdominal site culture resulted in E coli organism. 06/26/24 patient remains sedated and intubated. She has gone down to OR for extensive abdominal surgery 06/27/24 Patient is mechanical ventilated and remains sedated. Patient is off pressors at this time. Patient is status post exploratory laparotomy on 06/22/2024 and right transverse colon resection with anastomosis and wound VAC placement as well as right colostomy and left urostomy day # 1. Patient is afebrile this morning, temperature is 98.2 and the WBC is 6.1. Patient has received 2 units of PRBC throughout the night and this morning for hemoglobin of 6.4 and will receive 1 unit of platelets for platelet level of 34. The linezolid was discontinued yesterday. Patient continues on ceftazidime, metronidazole and fluconazole 06/28/24 patient was seen and examined she remains on mechanical ventilation and sedated. Patient was requiring multiple transfusion products including both platelets and PRBCs. DIC? Who we will consult Hematology 06/29/2024 Patient is seen at the bedside. She remains sedated on fentanyl and midazolam and intubated, NG tube in place. Her blood pressure is ranging in between 130/70s to 140/70s. She is currently not on any vasopressors. Labs hemoglobin 11.1, platelets 134 post 2 unit PRBC and 4 platelet transfusions yesterday. Sodium 130, chloride 96, BUN 45, creatinine 1.3, BNP of 1430. Urinary output is 550m L. She is currently on Lasix drip at the rate of 5 mL/hour. Plan for wound closure by surgery consult tomorrow. 06/30/2024 Patient is seen at the bedside. She remains sedated on Versed and fentanyl. Intubated with VT 450, RR 18, FiO2 30%. Blood pressure ranging in 150s/70s, not on any vasopressors. Urine output of 1.2 L, on Lasix drip. WBC increased from 9.7-12.8, hemoglobin 10.3, platelet 85, BUN 57, creatinine improved from 1.3-1.2, phosphatase 248, albumin 1.4. Patient had undergone wound closure by surgery consult today. Chest x-ray revealed stable pulmonary pattern with no worrisome interval changes. 07/01 patient is seen and examined at bedside, remains in the ICU, patient with a acute bowel perforation with subsequent peritonitis, status post exploratory laparotomy 06/23/2024 by General surgery with a culture positive for E coli. Patient is status post repeat exploratory laparotomy 06/26/2024 with small bowel anastomosis, right colon and transfer colon resection, colostomy creation, ileostomy tube placement and wound VAC placement. Patient is status post wound closure and 2nd ZAIDA to abdomen on 06/30/2024. During my visit patient is off sedation, minimal withdrawal to painful stimulation, eyes open, remains intubated, on mechanical ventilation. Remains on Lasix drip. Getting broad- spectrum IV antibiotics. On low-dose Precedex. 07/02 patient is seen and examined at bedside, daughter at bedside, updated. During my visit patient remains intubated, case discussed with the RN, patient has been off sedation since earlier this morning in order to assess mental status. She remains on broad-spectrum IV antibiotics. She remains on Lasix drip. 07/03 07/02 patient is seen and examined at bedside, case discussed with the RN, patient remains intubated, mechanical ventilation, require fentanyl last night. Currently she is off vasopressors. Case discussed with critical Care, no family members at bedside, awaiting family decision in regards of tracheostomy versus comfort measures. We will continue to follow. 07/04 patient is seen and examined at bedside, remains intubated, mechanical ventilation, case discussed with the RN, patient about to receive additional unit of PRBC, the patient with the NG tube with coffee-ground content been aspirated. The patient colostomy examined, bloody output also noted. The patient looks pale. Awaiting family decision regards of tracheostomy versus comfort measures. The prognosis of this patient is extremely poor and guarded. REVIEW OF SYSTEMS: Not able to get a proper history as the patient is sedated CONSTITUTIONAL: Denies fevers, chills, or night sweats. No unintentional weight loss reported. NEUROLOGICAL: Denies headache, amaurosis fugax, motor weakness, sensory deficit, vertigo/spinning sensation, gait abnormalities, or tremors. ENT: No hearing loss, otalgia, otorrhea, rhinitis, rhinorrhea, hoarseness, or sore throat. CARDIOVASCULAR: Denies any exertional angina, dyspnea on exertion, orthopnea, paroxysmal nocturnal dyspnea, palpitations, life-threatening arrhythmias, claudication. PULMONARY: Denies any shortness of breath, cough, phlegm/sputum, hemoptysis, pleuritic chest pain. SLEEP: Denies morning headaches, daytime somnolence or napping. Denies difficulty falling asleep, staying asleep, waking from sleep. Denies knowledge of snoring. GASTROINTESTINAL: Denies any type of dysphagia to either liquids or solids. Denies nausea, vomiting, pyrosis, early satiety, abdominal pain, diarrhea, constipation, or changes in stool consistency or caliber. Denies coffee-ground emesis, hematemesis, hematochezia, or melanotic stools. GENITOURINARY: Denies frequency, urgency, nocturia, hematuria or incontinence (Storage/Irritative symptoms.) Low urinary stream, straining to void, urinary intermittency or hesitancy, splitting of the voiding stream, terminal dribbling. ENDOCRINOLOGIC: Denies polyuria, polydipsia, polyphagia or heat/cold intolerances. HEMATOLOGIC: Denies thrombophilia/previous clots, or coagulopathy/bleeding disorders. ONCOLOGIC: Denies personal history of malignancy. DERMATOLOGIC: Denies rashes or pruritus. PSYCHIATRIC: Denies any suicidal or homicidal ideation. Denies hallucinations. PHYSICAL EXAM GENERAL APPEARANCE: The patient is sedated, intubated NEUROLOGICAL: Cranial nerves II-XII grossly intact. Motor is 5/5 in bilateral upper and lower extremities proximal to distal. No sensory deficits. HEENT: Face is symmetric. Pupils are equal and reactive. Extraocular movements are intact. NECK: Supple. No JVD. No thyromegaly. No submental, submandibular, pre- /postauricular, occipital or supraclavicular lymphadenopathy. CHEST: Normal chest expansion. No Telemetry. LUNGS: Absence of any rales, rhonchi or any wheezing. CARDIOVASCULAR: Regular. S1 and S2 normal. No appreciable rubs, murmurs or gallops. ABDOMEN: Soft, nontender, and nondistended. There is no rebound, voluntary g uarding, or rigidity. : Deferred. No Hearn. EXTREMITIES: No clubbing. Bilateral lower extremity edema Good capillary refill. SKIN: Sacral ulcer, No skin breakdown. Vital Signs (last 8hr) Date Time Temp Pulse Resp B/P (MAP) Pulse Ox O2 Delivery O2 Flow Rate FiO2 07/04/24 08:00 30 07/04/24 08:00 98.6 133 28 145/79 (101) 100 07/04/24 08:00 100 Ventilator+ 30 07/04/24 07:00 122 23 100 07/04/24 07:00 128 22 164/85 100 Ventilator 30 07/04/24 06:21 107 30 07/04/24 06:12 134 169/71 07/04/24 06:00 30 07/04/24 06:00 119 25 169/71 100 Ventilator 30 07/04/24 05:00 110 32 187/132 100 Ventilator 30 07/04/24 04:00 99.0 108 23 168/92 100 Ventilator 30 07/04/24 04:00 100 Ventilator+ 2 30 07/04/24 03:00 106 24 165/78 100 Ventilator 30 07/04/24 02:30 113 32 160/81 100 Ventilator 30 07/04/24 02:19 112 30 07/04/24 02:00 108 21 147/78 100 Ventilator 30 07/04/24 01:45 110 28 149/72 100 Ventilator 30 07/04/24 01:30 109 23 142/65 100 Ventilator 30 07/04/24 01:23 30 07/04/24 01:15 110 28 142/73 100 Ventilator 30 LABS: Laboratory: Test 07/04/24 07:03 07/04/24 04:07 07/03/24 17:19 07/03/24 17:18 Range/Units White Blood Count 10.4 4.8-10.8 K/uL Red Blood Count 1.83 #L 4.00-5.50 MIL/uL Hemoglobin 5.4 #*L 12.0-16.0 g/dL Hematocrit 15.8 #*L 36-48 % Mean Corpuscular Volume 86.3 79-99 fL Mean Corpuscular Hemoglobin 29.5 27.0-33.0 pg Mean Corpuscular Hemoglobin Concent 34.2 32.0-36.0 g/dL Red Cell Distribution Width 16.1 H 11.0-15.5 % Platelet Count 50 #L 130-400 K/uL Mean Platelet Volume 11.6 H 7.5-10.5 fL Immature Granulocyte % (Auto) 0.9 0-1 % Neutrophils (%) (Auto) 95.2 H 40.0-77.0 % Lymphocytes (%) (Auto) 1.4 L 21.0-51.0 % Monocytes (%) (Auto) 2.3 L 3.0-13.0 % Eosinophils (%) (Auto) 0.0 0.0-8.0 % Basophils (%) (Auto) 0.2 0.0-5.0 % Neutrophils # (Auto) 9.9 H 1.8-7.7 K/uL Lymphocytes # (Auto) 0.2 L 1.0-4.8 K/uL Monocytes # (Auto) 0.2 0.1-1.0 K/uL Eosinophils # (Auto) 0.00 0.00-0.70 K/uL Basophils # (Auto) 0.02 0.00-0.20 K/uL Absolute Immature Granulocyte (auto 0.09 0-1 K/uL Nucleated Red Blood Cells 0.0 0.0-0.19 % Sodium Level 130 L 136-145 mmol/L Potassium Level 3.2 L 3.5-5.1 mmol/L Chloride Level 96 L 101-111 mmol/L Carbon Dioxide Level 26 21-32 mmol/L Blood Urea Nitrogen 87 *H 7-18 mg/dL Creatinine 1.1 H 0.5-1.0 mg/dL Glomerular Filtration Rate Calc 53 >90 mL/min Random Glucose 138 H 70-105 mg/dL Total Calcium 7.6 L 8.5-10.1 mg/dL Magnesium Level 2.10 1.80-2.40 mg/dL Total Bilirubin 1.1 H 0.2-1.0 mg/dL Aspartate Amino Transf (AST/SGOT) 12 10-37 U/L Alanine Aminotransferase (ALT/SGPT) 8 L 12-78 U/L Alkaline Phosphatase 81 50-136 U/L Total Protein 4.6 L 6.0-8.3 g/dL Albumin 2.5 L 3.5-5.0 g/dL Prothrombin Time 14.2 H 9.6-11.6 SEC Prothromb Time International Ratio 1.38 H 0.85-1.15 Fibrinogen 352 H 180-350 mg/dL Whole Blood Glucose 114 H 70-110 MG/DL Test 07/02/24 15:22 Range/Units Blood Gas Specimen Type Arterial Arterial Blood pH 7.472 H 7.350-7.450 Arterial Blood Partial Pressure CO2 33 32-45 mmHg Arterial Blood Partial Pressure O2 88.3 83.0-108.0 mmHg Arterial Blood HCO3 23.8 21.0-28.0 mmol/L Arterial Blood Oxygen Saturation 96.6 94.0-98.0 % Arterial Blood Base Excess 0.5 -2.0-3.0 mmol/L Hemoglobin (Blood Gas) 9.4 L 12.0-16.0 g/dL Sodium (Blood Gas) 126 L 136-145 MMOL/L Bedside Potassium (Blood Gas) 3.3 L 3.4-4.5 MMOL/L Bedside Chloride (Blood Gas) 94 L 98-107 MMOL/L Bedside Glucose (Blood Gas) 103 H 65-95 MG/DL Bedside Ionized Calcium (Blood Gas) 1.02 L 1.15-1.33 MMOL/L Bedside Lactic Acid (Blood Gas) 1.03 H 0.36-0.75 MMOL/L Blood Gas Temperature 37.0 35.5-37.0 CELSIUS Blood Gas Respiration Rate 18.0 min. Blood Gas Vent Mode AC-VC ROOM AIR FiO2 30.0 % Blood Gas Tidal Volume 450 ml Blood Gas PEEP 5 cm H2O Blood Gas Specimen Comment LR REJI Current Medications Medications (Trade) Dose Ordered Sig/Dionisio Route PRN Reason Start Time Stop Time Status Last Admin Dose Admin Acetaminophen (TYLenol 325MG TAB) 650 mg Q4H PRN PO TEMPERATURE GREATER THAN 101.5 06/23/24 03:30 07/23/24 03:29 Acetaminophen (TYLenol 650MG SUPPOSITORY) 650 mg Q6H PRN RC MILD PAIN (1-3) 06/22/24 20:30 07/22/24 20:29 Albumin Human 50 ml @ 0 mls/hr AD IV 06/26/24 17:30 06/26/24 17:32 DC Albumin Human 100 ml @ 0 mls/hr Q6H IV 07/01/24 12:00 07/03/24 11:59 DC 07/03/24 05:31 100 MLS/HR Albumin Human 100 ml @ 0 mls/hr Q6H6 IV 06/23/24 00:00 06/23/24 12:52 DC Albumin Human 250 ml @ 400 mls/hr AD IV 06/26/24 17:30 06/27/24 18:03 DC 06/26/24 17:36 400 MLS/HR Albumin Human 250 ml @ 0 mls/hr AD IV 06/23/24 11:30 06/24/24 11:29 DC 06/24/24 13:26 400 MLS/HR Albumin Human 250 ml @ 0 mls/hr AD IV 06/24/24 12:00 06/24/24 13:21 DC Aminocaproic Acid 97174 mg/Sodium Chloride 500 ml @ 0 mls/hr AD IV 06/27/24 19:30 06/27/24 18:37 DC Artificial Tears (Artificial Tears) 1 DROP BID OU 06/24/24 21:00 07/24/24 20:59 07/03/24 21:14 5 DROP Calcium Gluconate 1 gm/Sodium Chloride 100 ml @ 0 mls/hr PROTOCOL IV 06/29/24 08:30 07/29/24 08:29 Calcium Gluconate 1 gm/Sodium Chloride 100 ml @ 0 mls/hr PROTOCOL IV 06/26/24 16:00 06/29/24 08:10 DC 06/26/24 16:57 400 MLS/HR Calcium Gluconate 2 gm/Sodium Chloride 120 ml @ 120 mls/hr PROTOCOL PRN IV WHEN 2G DOSE IS NEEDED 06/28/24 00:30 07/28/24 00:29 06/28/24 01:06 120 MLS/HR Cefepime HCl (MAXipime 2 gm vial) 2 gm Q12H IVPB 06/22/24 21:00 06/23/24 03:25 DC 06/22/24 22:03 2 GM Cefepime HCl (MAXipime 2 gm vial) 2 gm Q24H IVPB 06/23/24 21:00 06/23/24 21:47 DC 06/23/24 21:15 2 GM Ceftazidime (ForTAZ/TAZidime) 1 gm Q24H IVPB 06/24/24 01:30 07/04/24 01:29 DC 07/03/24 01:01 1 GM Dexmedetomidine/ Sodium Chloride (PRECEdex 200MCG/ 50ML-NS) 200 mcg PROTOCOL IV 07/01/24 12:00 07/31/24 11:59 07/02/24 07:19 200 MCG Enoxaparin Sodium (Lovenox) 30 mg DAILY SQ 06/23/24 09:00 06/30/24 09:13 DC 06/25/24 07:35 30 MG Fat Emulsion Intravenous 250 ml @ 42 mls/hr DAILY10 IV 06/24/24 10:00 06/24/24 13:22 DC 06/24/24 10:07 42 MLS/HR Fat Emulsion Intravenous 250 ml @ 42 mls/hr MoWeFr IV 06/29/24 20:18 07/29/24 20:17 Cancel Fat Emulsion Intravenous 250 ml @ 42 mls/hr QMOWEFR@1000 IV 06/26/24 10:00 07/24/24 09:59 07/03/24 09:47 42 MLS/HR Fentanyl Citrate 100 ml @ 2.5 mls/hr PROTOCOL IV 06/23/24 09:00 06/26/24 20:27 DC 06/26/24 17:13 2.5 MLS/HR Fentanyl Citrate (FENTanyl CITRate PF 50 MCG/ 1 ML 2ML VIAL) 50 mcg Q4H PRN IVP MODERATE PAIN (4-6) 07/01/24 12:00 07/31/24 11:59 07/04/24 08:39 50 MCG Fentanyl Citrate 2500 mcg/Sodium Chloride 250 ml @ 0 mls/hr AD PRN IV TITRATE 06/26/24 20:30 06/26/24 20:41 DC Fentanyl/Sodium Chloride 250 ml @ 0 mls/hr PROTOCOL IV 06/26/24 21:00 07/01/24 12:21 DC 07/01/24 04:55 27.5 MLS/HR Fluconazole/ Sodium Chloride (DiFLUCan 200 MG/ NS 100 ML) 200 mg Q24H IVPB 06/23/24 03:30 07/23/24 03:29 07/04/24 02:40 200 MG Furosemide (LASix 20MG VIAL) 20 mg ONCE STAT IV 06/25/24 15:49 06/25/24 15:50 DC 06/25/24 16:11 20 MG Furosemide (LASix 20MG VIAL) 20 mg Q6H IV 07/03/24 10:30 07/04/24 06:02 DC 07/03/24 17:13 20 MG Furosemide (LASix 20MG VIAL) 20 mg Q6H IV 07/04/24 06:00 08/03/24 05:59 07/04/24 06:11 20 MG Furosemide (LASix 20MG VIAL) 20 mg Q8H IV 07/03/24 20:00 07/03/24 21:49 DC 07/03/24 21:11 20 MG Furosemide (LASix 20MG VIAL) 20 mg Q8H IV 06/25/24 17:30 06/27/24 17:29 DC 06/27/24 10:01 20 MG Furosemide (LASix 20MG VIAL) 20 mg Q8H IV 06/28/24 20:00 06/29/24 10:14 DC 06/29/24 03:04 20 MG Furosemide 100 mg/ Sodium Chloride 100 ml @ 0 mls/hr PROTOCOL IV 06/29/24 10:30 07/29/24 10:29 Hold 07/02/24 00:47 10 MLS/HR Furosemide 100 mg/ Sodium Chloride 100 ml @ 0 mls/hr PROTOCOL IV 06/23/24 12:00 06/23/24 12:44 DC 06/23/24 11:37 5 MLS/HR Heparin Sodium (Porcine) (HEParin 5,000 UNIT VIAL) 5,000 unit BID SQ 06/22/24 21:00 06/22/24 20:48 DC Hydralazine HCl (APRESOLine 20MG INJ) 5 mg Q4H PRN IV ADMINISTER FOR SBP > 160 07/03/24 00:00 07/03/24 10:14 DC 07/03/24 09:47 5 MG Hydralazine HCl (APRESOLine 20MG INJ) 10 mg Q4H PRN IV ADMINISTER FOR SBP > 160 07/03/24 12:00 08/02/24 11:59 07/03/24 17:12 10 MG Hydrocortisone Sodium Succinate (Solu-corTEF 100MG) 25 mg Q12H IV 06/26/24 14:00 07/23/24 08:59 07/04/24 02:40 25 MG Hydrocortisone Sodium Succinate (Solu-corTEF 100MG) 50 mg Q6H6 IV 06/23/24 09:00 06/26/24 13:48 DC 06/26/24 05:33 50 MG Hydromorphone HCl (DiLAUDid 1MG INJ) 1 mg Q3H3 PRN IVP SEVERE PAIN (7-10) 06/23/24 03:30 06/28/24 03:29 DC Insulin Human Regular (humuLIN R 100 UNIT/ML 3ML) INSULIN SLIDING SCAL... ACHS SQ 06/29/24 21:00 07/29/24 20:59 06/30/24 20:54 2 UNIT Insulin Human Regular (humuLIN R 100 UNIT/ML 3ML) INSULIN SLIDING SCAL... ACHS SQ 06/22/24 21:00 06/24/24 15:37 DC 06/24/24 10:09 6 UNIT Insulin Human Regular (humuLIN R 100 UNIT/ML 3ML) INSULIN SLIDING SCAL... Q6H6 SQ 06/24/24 18:00 06/25/24 06:25 DC 06/24/24 23:32 7 UNIT Insulin Human Regular 100 unit/ Sodium Chloride 100 ml @ 0 mls/hr AD IV 06/25/24 06:30 07/02/24 06:29 DC 06/28/24 01:08 3 MLS/HR Ketorolac Tromethamine (toRADol) 15 mg Q6H PRN IV MODERATE PAIN (4-6) 06/23/24 03:30 06/27/24 18:23 DC Lactated Ringer's 1,000 ml @ 40 mls/hr Q24H IV 06/26/24 20:30 07/01/24 14:06 DC 06/30/24 17:48 40 MLS/HR Lactated Ringer's 1,000 ml @ 125 mls/hr Q8H IV 06/22/24 20:30 06/23/24 12:44 DC 06/23/24 11:23 125 MLS/HR Lactated Ringer's (Lactated Ringers 1000ml) 500 ml BOLUS IV 06/23/24 05:30 06/24/24 13:22 DC Linezolid 300 ml @ 150 mls/hr Q12H IV 06/23/24 15:00 06/26/24 10:34 DC 06/26/24 03:27 150 MLS/HR Magnesium Sulfate 50 ml @ 0 mls/hr PROTOCOL IV 06/23/24 04:30 07/23/24 04:29 07/03/24 05:39 25 MLS/HR Magnesium Sulfate (Magnesium 4gm Premix 100ml) 4 gm AD IV 06/23/24 05:30 06/23/24 05:59 DC Metoprolol Tartrate (loprESSOR) 2.5 mg Q6H PRN IV INCREASED HEART RATE 07/03/24 03:30 07/03/24 21:06 DC 07/03/24 18:14 2.5 MG Metoprolol Tartrate (loprESSOR) 5 mg ONCE IV 06/26/24 17:00 06/26/24 21:30 DC 06/26/24 17:28 5 MG Metoprolol Tartrate (loprESSOR) 5 mg ONCE STAT IV 07/02/24 15:26 07/02/24 15:28 DC 07/02/24 15:30 5 MG Metoprolol Tartrate (loprESSOR) 5 mg Q4H PRN IV INCREASED HEART RATE 07/03/24 21:30 08/02/24 21:29 07/04/24 06:12 5 MG Metronidazole/ Sodium Chloride 100 ml @ 100 mls/hr Q8H6 IVPB 06/23/24 14:00 07/03/24 13:59 DC 07/03/24 05:31 100 MLS/HR Midazolam HCl 100 ml @ 0 mls/hr AD PRN IV TITRATE 06/23/24 22:00 07/01/24 12:21 DC 06/30/24 19:17 7 MLS/HR Morphine Sulfate (morPHINE 2MG SYG) 2 mg Q4H PRN IVP SEVERE PAIN (7-10) 06/22/24 20:30 06/23/24 03:21 DC Multivitamins/ Minerals 10 ml/ Amino Acids/ Electrolytes/ Dextrose 2,000 ml @ 83 mls/hr AD IV 06/26/24 20:30 06/27/24 18:02 DC 06/26/24 21:58 83 MLS/HR Norepinephrine 250 ml @ 0 mls/hr PROTOCOL IV 06/22/24 19:30 06/23/24 03:51 DC 06/22/24 20:15 45 MLS/HR Norepinephrine Bitartrate 32 mg/ Sodium Chloride 250 ml @ 0 mls/hr Q0M STAT IV 06/23/24 03:47 06/23/24 03:52 DC 06/23/24 07:22 32.8 MLS/HR Ondansetron HCl (zoFRAN 4MG INJ) 4 mg Q6H PRN IV NAUSEA/VOMITING 06/22/24 20:30 07/22/24 20:29 Ondansetron HCl (zoFRAN 4MG INJ) 4 mg Q6H PRN IVP NAUSEA/VOMITING 06/23/24 03:30 06/23/24 03:18 DC Pantoprazole Sodium (PROTonix 40MG INJ) 40 mg BID IVP 06/23/24 09:00 07/23/24 08:59 07/03/24 21:11 40 MG Pantoprazole Sodium (PROTonix 40MG INJ) 40 mg DAILY IV 06/23/24 09:00 06/23/24 03:19 DC Pharmacy Profile Note (Lace Assessment) 1 each AD MISC 06/24/24 14:00 06/24/24 13:53 DC Pharmacy Profile Note (Pharmacy Communication) 1 each ONCE MISC 06/23/24 14:00 06/23/24 13:46 DC Pharmacy Profile Note (Pharmacy Communication) 1 each ONCE MISC 06/27/24 19:00 06/27/24 18:50 DC Pharmacy Profile Note (Pharmacy Communication) 1 each ONCE STAT MISC 06/25/24 17:11 06/26/24 15:42 DC Phenylephrine HCl 100 mg/Sodium Chloride 250 ml @ 0 mls/hr PROTOCOL IV 06/23/24 08:30 07/23/24 08:29 06/23/24 13:00 32.67 MLS/HR Piperacillin Sod/ Tazobactam Sod (Zosyn 3.375gm+NS 50ml) 3.375 gm Q8H IVPB 06/23/24 03:30 06/23/24 04:34 DC Potassium Chloride 100 ml @ 50 mls/hr AD PRN IV POTASSIUM PROTOCOL 06/23/24 05:30 07/23/24 05:29 07/03/24 07:22 50 MLS/HR Propofol (DIPRivan 1000MG/ 100ML) 1,000 mg PROTOCOL PRN IV SEDATION 06/23/24 03:30 07/02/24 10:54 DC 06/23/24 04:06 1,000 MG Sodium Bicarbonate 150 meq/Dextrose 1,150 ml @ 50 mls/hr Q23H IV 06/26/24 23:00 06/26/24 22:55 DC Sodium Bicarbonate 150 meq/Dextrose 1,150 ml @ 50 mls/hr Q23H IVP 06/23/24 13:00 06/25/24 17:25 DC 06/24/24 19:34 50 MLS/HR Sodium Bicarbonate 150 meq/Dextrose 1,150 ml @ 50 mls/hr Q23H IVP 06/26/24 23:00 06/27/24 17:57 DC 06/27/24 00:56 50 MLS/HR Sodium Bicarbonate 150 meq/Sodium Chloride 1,150 ml @ 50 mls/hr Q23H IVP 06/25/24 17:30 06/25/24 17:52 DC 06/25/24 17:42 50 MLS/HR Sodium Bicarbonate 150 meq/Sterile Water 1,150 ml @ 50 mls/hr Q23H IVP 06/25/24 18:00 06/26/24 14:36 DC 06/25/24 18:18 50 MLS/HR Sodium Chloride 1,000 ml @ 0 mls/hr Q0M IV 06/23/24 12:00 07/23/24 11:59 06/23/24 15:43 1,000 MLS/HR Sodium Chloride (NS 50ml) 50 ml AD IV 06/23/24 03:30 06/23/24 03:26 DC Vasopressin 20 units/Sodium Chloride 100 ml @ 0 mls/hr PROTOCOL IV 06/22/24 20:30 07/22/24 20:29 06/24/24 08:43 6 MLS/HR DIAGNOSTICS / RADIOLOGY: [ ] ASSESSMENT: PLAN: Acute hypoxic Respiratory failure POA Acute encephalopathy, in the setting of severe sepsis POA Acute bowel perforation with subsequent peritonitis s/p exploratory laparotomy 06/23/24 Dr. Bianca PRAKASH Culture + E-coli. Repeat exploratory laparotomy on 06/26/2024 with small bowel anastomosis, right colon and transverse colon resection, colostomy creation, ileostomy tube placement and wound VAC placement. S/P wound closure and 2 ZAIDA to abdomen on 06/30/24 Shock etiology sepsis POA Suspected intraabdominal hemorrhage Urinary tract infection, POA E-coli multisensitive Pneumonitis, culture + for E-coli Acute kidney injury, POA Lactic acidosis, POA Acute blood loss anemia Thrombocytopenia Chronic debility, POA DM type 2, POA GERD, POA History small-bowel obstruction History of fibromyalgia History of hypertension, now hypotensive in the setting of septic shock versus hemorrhagic shock PLAN: Patient remains admitted to the ICU Patient with a Acute bowel perforation with subsequent peritonitis s/p exploratory laparotomy 06/23/24 Dr. Bianca PRAKASH Culture + E-coli. Repeat exploratory laparotomy on 06/26/2024 with small bowel anastomosis, right colon and transverse colon resection, colostomy creation, ileostomy tube placement and wound VAC placement. S/P wound closure and 2 ZAIDA to abdomen on 06/30/24 Remains intubated, on mechanical ventilation. Wean as tolerated Continue Lasix drip Continue broad-spectrum IV antibiotics Continue to follow surgical input and recommendations Continue to follow critical care input recommendations Awaiting family to make decision in regards to tracheostomy versus comfort measures. NEURO: Minimize central acting medications as possible. Fall Precautions. Well lighted room through the day and minimize interruptions through the night to prevent acute delirium. PULMONARY: Supplemental 02 as needed BiPAP as necessary, for respiratory distress Titrate Fio2 to keep Spo2 > or = 90% DuoNebs and CPT as needed IS hourly while awake for pulmonary hygiene prn Out of bed to chair as tolerated Maintain aspiration precautions at all times CARDIOVASCULAR: Follow hemodynamics. Vital signs per facility protocol GI & NUTRITION: Continue nutritional support Aspirations precautions Prokinetic agents and laxatives as needed KIDNEYS & ELECTROLYTES: Strict monitoring of intake and output Daily weights Avoid nephrotoxic agents Monitor electrolytes and replace as needed Goal urine output of 30mL/hr or 0.5mL/kg/hr Medications to be dosed according to renal function. Avoid contrast if possible ENDOCRINE: Maintain blood glucose between 100-180 at all times. Insulin sliding scale for blood glucose management Hypoglycemia and hyperglycemia protocol in place INFECTIOUS DISEASE: Trend temperature, WBC and procalcitonin level Follow cultures, deescalate antibiotics as soon as possible. Panculture if new onset fever HEMATOLOGY & COAGULATION: Monitor H&H. Keep Hgb > 7 Transfuse 1 unit of PRBC for Hgb < 7 Transfuse 1 pack of platelets of platelets < 20, 000 Watch for any signs and symptoms of bleeding SKIN: Pressure ulcer prevention per facility protocol Specialty mattress as needed ORTHO/REHAB Continue PT/OT PRN: MEDICATIONS Tylenol 650 mg po every 4 hrs for fever zofran 4 mg IV every 6 hrs for n/v Hydralazine 5 mg IV every 4 hrs systolic pressure > 160 bowel regiment: lactulose 20 gm PO BID PRN constipation Supportive measures: Continue GI and DVT prophylaxis Disposition: Pending improvement in clinical condition. All questions answered time spent: > 35 min MARTIN GALINDO MD Jul 04, 2024 09:05
--- NOTE | 2024-07-04 09:16 | NUR ---
Linda STOREY DUST BRUSH ASSEMBLER HERE- UPDATED ON BLOOD TRANSFUSION AND INCREASED PAIN/ASYNCHRONY WITH VENT
--- NOTE | 2024-07-04 09:39 | HMCIMG ---
Exam Type: CHEST 1VW Clinical Information: intubated Comparison: None Findings: Pulmonary pattern is as before. No worrisome interval changes have taken place. Impression: Stable exam.
--- NOTE | 2024-07-04 10:15 | NUR ---
DR INIGUEZ ROUNDED AND WAS INFORMED OF BLEEDING CONTINUATION - HE SPOKE TO ICU REFINERY OPERATOR POLYMERIZATION PLANT AND TO MYSELF. HE STATED PT PT PROBALITY OF IMPROVEMENT IS MINIMAL AND THAT DISCUSSION ABOUT COMFORT CARE WITH AND DAUGHTER NEEDS TO BE DONE.
--- NOTE | 2024-07-04 10:27 | PN ---
[facility] PROGRESS NOTE Date Patient Seen: Jul 04, 2024 Time of Visit: 10:27 Supervising Physician: Roly Monson MD Consulting Physician: [facility] Outpatient Specialists: [ ] Inpatient Consults: [ ] PROBLEM LIST: Acute hypoxic Respiratory failure POA Acute encephalopathy, in the setting of severe sepsis POA Acute bowel perforation with subsequent peritonitis s/p exploratory laparotomy 06/23/24 Dr. Valenzuela POA Culture + E-coli. Repeat exploratory laparotomy on 06/26/2024 with small bowel anastomosis, right colon and transverse colon resection, colostomy creation, ileostomy tube placement and wound VAC placement. S/P wound closure and 2 ZAIDA to abdomen on 06/30/24 Shock etiology sepsis POA Suspected intraabdominal hemorrhage Urinary tract infection, POA E-coli multisensitive Pneumonitis, culture + for E-coli Acute kidney injury, POA Lactic acidosis, POA Acute blood loss anemia Thrombocytopenia Chronic debility, POA DM type 2, POA GERD, POA History small-bowel obstruction History of fibromyalgia History of hypertension, now hypotensive in the setting of septic shock versus hemorrhagic shock INTERVAL HISTORY: Overnight patient declined. Started bleeding from colostomy site. She has been given four total units of leuko reduced platelets and 1 unit of PRBCs yesterday and 1 unit of PRBCs this morning. Latest H and H is 5.4/15.8 platelet count is 50 K. on chemistries sodium 130 potassium 3.2 covered per protocol carbon dioxide of 26 BUN of 87 creatinine of 1.1 and GFR of 53. She is off sedation and has not been able to wake up. GCS of 5. Chest x-ray stable. ET tube 4.9 cm from the amy. No pneumothorax. Bilateral pulmonary infiltrates noted. Continues on mechanical ventilation for life support on on assist-control volume control tidal volume of 450 respiratory rate of 18 FiO2 of 30% and PEEP of 5. She has been tachycardic heart rate this morning 123, breathing over the vent at a rate of 34 blood pressure 156/77 saturating 100%. Urine output of 1200 mL in the last 24 hours. Colostomy drained 800 mL of bloody drain. Patient to receive a total of 2 units of PRBCs 2 units of FFP and 2 units of platelets. 1300-Called by nurse to the bedside due to patient's arrived and wanted to speak to ICU provider. Goals of care has been discussed. He states patient would have never wanted to be on life support. He reports that patient and him have discussed end of life decisions before and they had decided not to stay on mechanical life support. He states he does not want to see her suffer. Pt's opted for withdrawal of care. He has signed withdrawal form but requested for some time prior to extubating to wait for family member. For now he wishes to stop all unnecessary diagnostic painful test. Comfort measures started. REVIEW OF SYSTEMS: Unable to obtain due to alteration in mental status PHYSICAL EXAM: GENERAL: on sedation vacation still no waking up and critically ill. HEENT: Sclera non icteric, dry mucosa NECK: Supple, no JVD, trachea midline LUNGS: Diminished bibasilar air. No wheezes HEART: Normal S1 and S2, without murmurs ABD: Abdomen is distended and tender to palpate. Bowel sounds present, Bleeding from Colostomy and ileostomy, wound vac, destiney lower abdomen j tube and Gastrostomy to drainage per gravity. EXT: No clubbing cyanosis BLE edema +3 NEURO: GCS of 5. off sedation Intubated, Vital Signs (last 8hr) Date Time Temp Pulse Resp B/P (MAP) Pulse Ox O2 Delivery O2 Flow Rate FiO2 07/04/24 09:39 118 30 07/04/24 08:00 30 07/04/24 08:00 98.6 133 28 145/79 (101) 100 07/04/24 08:00 100 Ventilator+ 30 07/04/24 07:00 122 23 100 07/04/24 07:00 128 22 164/85 100 Ventilator 30 07/04/24 06:21 107 30 07/04/24 06:12 134 169/71 07/04/24 06:00 30 07/04/24 06:00 119 25 169/71 100 Ventilator 30 07/04/24 05:00 110 32 187/132 100 Ventilator 30 07/04/24 04:00 99.0 108 23 168/92 100 Ventilator 30 07/04/24 04:00 100 Ventilator+ 2 30 07/04/24 03:00 106 24 165/78 100 Ventilator 30 07/04/24 02:30 113 32 160/81 100 Ventilator 30 LABS: Hematology Labs: Test 07/04/24 07:03 Range/Units White Blood Count 10.4 4.8-10.8 K/uL Red Blood Count 1.83 #L 4.00-5.50 MIL/uL Hemoglobin 5.4 #*L 12.0-16.0 g/dL Hematocrit 15.8 #*L 36-48 % Mean Corpuscular Volume 86.3 79-99 fL Mean Corpuscular Hemoglobin 29.5 27.0-33.0 pg Mean Corpuscular Hemoglobin Concent 34.2 32.0-36.0 g/dL Red Cell Distribution Width 16.1 H 11.0-15.5 % Platelet Count 50 #L 130-400 K/uL Mean Platelet Volume 11.6 H 7.5-10.5 fL Immature Granulocyte % (Auto) 0.9 0-1 % Neutrophils (%) (Auto) 95.2 H 40.0-77.0 % Lymphocytes (%) (Auto) 1.4 L 21.0-51.0 % Monocytes (%) (Auto) 2.3 L 3.0-13.0 % Eosinophils (%) (Auto) 0.0 0.0-8.0 % Basophils (%) (Auto) 0.2 0.0-5.0 % Neutrophils # (Auto) 9.9 H 1.8-7.7 K/uL Lymphocytes # (Auto) 0.2 L 1.0-4.8 K/uL Monocytes # (Auto) 0.2 0.1-1.0 K/uL Eosinophils # (Auto) 0.00 0.00-0.70 K/uL Basophils # (Auto) 0.02 0.00-0.20 K/uL Absolute Immature Granulocyte (auto 0.09 0-1 K/uL Nucleated Red Blood Cells 0.0 0.0-0.19 % Chemistry Labs: Test 07/04/24 04:07 07/03/24 17:18 Range/Units Sodium Level 130 L 136-145 mmol/L Potassium Level 3.2 L 3.5-5.1 mmol/L Chloride Level 96 L 101-111 mmol/L Carbon Dioxide Level 26 21-32 mmol/L Blood Urea Nitrogen 87 *H 7-18 mg/dL Creatinine 1.1 H 0.5-1.0 mg/dL Glomerular Filtration Rate Calc 53 >90 mL/min Random Glucose 138 H 70-105 mg/dL Total Calcium 7.6 L 8.5-10.1 mg/dL Magnesium Level 2.10 1.80-2.40 mg/dL Total Bilirubin 1.1 H 0.2-1.0 mg/dL Aspartate Amino Transf (AST/SGOT) 12 10-37 U/L Alanine Aminotransferase (ALT/SGPT) 8 L 12-78 U/L Alkaline Phosphatase 81 50-136 U/L Total Protein 4.6 L 6.0-8.3 g/dL Albumin 2.5 L 3.5-5.0 g/dL Whole Blood Glucose 114 H 70-110 MG/DL Coagulation Labs: Test 07/03/24 17:19 Range/Units Prothrombin Time 14.2 H 9.6-11.6 SEC Prothromb Time International Ratio 1.38 H 0.85-1.15 Fibrinogen 352 H 180-350 mg/dL DIAGNOSTICS / RADIOLOGY RESULTS: [ ]IMAGING REPORT Signed PATIENT: JOSÉ MIGUEL OSORIO MR#: [id number] : 1950 SEX: F AGE: 73 LOCATION: [facility] ORDER 2300 STATUS: ADM IN REPORT#: [id number] SERVICE 0600 REASON: intubated ORDERING PHYSICIAN: DEJAN STOREY PROCEDURE: CXR1VW - CHEST 1VW Exam Type: CHEST 1VW Clinical Information: intubated Comparison: None Findings: Pulmonary pattern is as before. No worrisome interval changes have taken place. Impression: Stable exam. DICTATED BY: NGOC ELIZABETH MD DATE: 07/04/24932 ELECTRONICALLY SIGNED BY: NGOC ELIZABETH MD DATE: 07/04/24938 PLAN has opted for withdrawal of care for later today. NEURO: Minimize central acting medications as possible. Fall Precautions. Well lighted room through the day and minimize interruptions through the night to prevent acute delirium. PULMONARY: Supplemental 02 as needed Titrate Fio2 to keep Spo2 > or = 90% DuoNebs and CPT as needed IS hourly while awake for pulmonary hygiene Manage vent per abg ABG CARDIOVASCULAR: Follow hemodynamics. Titrate vasopressor to keep MAP >65 or systolic blood pressure >95mmHg Cardiac monitoring DIPS: TPN at 75 mL/hour LINES: Right upper arm PICC line LUE PICC Line GI & NUTRITION: NPO Aspirations precautions Prokinetic agents and laxatives as needed TPN KIDNEYS & ELECTROLYTES: Strict monitoring of intake and output Daily weights Avoid nephrotoxic agents Monitor electrolytes and replace as needed Goal urine output of 30mL/hr or 0.5mL/kg/hr ENDOCRINE: Maintain blood glucose between 100-180 at all times. Insulin sliding scale for blood glucose management INFECTIOUS DISEASE: Trend temperature. Clarke-culture if febrile. Micro: 06/24/2024: E coli in the urine. 06/25/2024: Peritoneal fluid positive for bacteroides uniformis and E coli. 06/25/2024: E coli of the sputum Antibiotics: Ceftazidime, Flagyl and fluconazole. HEMATOLOGY & COAGULATION: Monitor H&H. Keep Hgb > 7 Transfuse 1 unit of PRBC for Hgb < 7 Transfuse 1 pack of platelets of platelets < 20, 000 Watch for any signs and symptoms of bleeding SKIN: Pressure ulcer prevention per facility protocol Rehab: PT/OT Prophylaxis: GI: Protonix IV DVT: Bilateral SCDs Code Status: Full Resuscitation Disposition: ICU Other: Critical Care Time This Patient Required Multiple Bedside Visits To Manage The Patient, Review Blood Gases, Coordinate With Respiratory, Nurses, Talk To Id Specialist And Primary Team, Review Radiology Exams, Talk To The Family Members And Discuss Advanced Directives. I Personally Spent 95 Minutes Of Critical Care Time In Treatment Of This Patient. This Includes Patient Management, Time At Bedside, Time Reviewing Tests, Labs, Appropriate Images And Studies, Documentation, And Patient Care Coordination. This Time Excludes Separately Billable Procedures. DEJAN STOREY Jul 04, 2024 10:27
--- NOTE | 2024-07-04 10:32 | NUR ---
I HAD DISCUSSION ABOUT COMFORT CARE WITH AND DAUGHTER EMERSON ON THE PHONE TOGETHER . I EXPLAINED PALLIATIVE AND COMFORT CARE TO THEM. I ASKED THAT MR OSORIO STAY AT BEDSIDE SO HE CAN DISCUSS CARE WITH PROVIDERS TODAY.
--- NOTE | 2024-07-04 11:00 | NUR ---
MR RADHA OSORIO PT'S SPOUSE HAS DECLARED THAT PT HAVE LIFE SUPPORT WITHDRAWN . COMFORT MEASURES ONLY. HE HAD TALK WITH CHELO WESLEY FIRST THEN GAVE HIS DECLARATIONS. HE SIGNED WITHDRAWAL OF LIFE SUPPORT FORM. NO ESCALATION OF CARE . ASKED THAT WE WAIT UNTIL HE RETURNS BACK TO ICU TO REMOVE ET TUBE AND VENT.
[2024-07-04] MEDS ORDERED: FENTanyl CITRate PF 50 MCG/1 ML 2ML VIAL IVP PRN (12:00)
--- NOTE | 2024-07-04 13:21 | NUR ---
ON AND PT BEHALF I HAVE CALLED THE FENCE SUPERVISOR WORKFORCE DEVELOPMENT ASSISTANT FOR SPIRITUAL SUPPORT PRIOR TO EXTUBATION
[2024-07-04] MEDS ORDERED: ARTIFICAL TEARS SOL 15 ML OU PRN (14:00)
[2024-07-04] MEDS: LORazepam 2 MG/ML 1 ML VIAL IVP PRN (14:17)
[2024-07-04] MEDS: morPHINE 2 MG SYG IVP PRN (14:18)
[2024-07-04] MEDS: SCOPOLAMINE HYDROBROMIDE 1 EACH ADH..PATCH TD SCH (14:27)
[2024-07-04] MEDS: GLYCOPYRROLATE 0.2 MG/ML 5 ML VIAL IVP ONE (14:27)
--- NOTE | 2024-07-04 14:41 | NUR ---
AT PATIENT BEDSIDE. SHE HAS BEEN EXTUBATED AND MEDICATED FOR PAIN. CHAIN FORMING MACHINE OPERATOR VISITED PRIOR TO EXTUBATION. SUPPORT GIVEN TO AND MY ASSISTANCE OFFERED
--- NOTE | 2024-07-04 15:24 | NUR ---
DR GALINDO AND DR INIGUEZ AWARE OF WITHDRAWAL OF CARE .
--- NOTE | 2024-07-04 15:58 | NUR ---
ASSESSMENT OF ABSENCE OF APICAL PULSE ,ASYSTOLE ON RHYTHM STRIP, PT DNR SEE DOCUMENTATION OF . LINDSEY BRUSH
--- NOTE | 2024-07-04 16:41 | NUR ---
PT HAS AT 1558- ALL PROVIDERS NOTIFIED. HAS GONE HOME. PT WILL BE SENT TO [facility]
--- NOTE | 2024-07-05 12:05 | DS ---
Discharge Summary Hospital Course Summary: Date of service 07/04/2024 Patient 07/04/2024 at 15:59 pm Ms. Chandler is a 73-year-old female that was seen and examined today on 06/22/2024. Patient is a good historian of personal health Patient states that she came to the emergency department with a chief complaint of abdominal pain. Onset was two days ago. Location is to left lower quadrant. Character is described as sharp. Patient reports associated nausea and vomiting. There was no alleviating factors. There was no aggravating factors. Today alf facility sent patient to the hospital thought she was acting confused. Patient arrived hypotensive. Patient's mentation improved o nce her blood pressure improves with Levophed. Today in the emergency department WBCs 26.3, left shift 92.0%, creatinine 1.6, B UN 22, lactic acid 6.7, no urinalysis has been collected or sent to lab, chest x-ray shows prominent interstitial markings, BNP is 119. Additionally patient presented with a blood pressure of 62/50 together with heart rate of 116, lactic acid of 6.7 and leukocytosis patient met clinical sepsis criteria for septic shock 06/23/2024 postop patient is seen and examined at the bedside. She is sedated on Diprivan and intubated. She underwent exploratory laparotomy 06/23/24 Dr. Valenzuela for perforated small bowel and subsequent peritonitis this morning. Vitals blood pressure 104/58, heart rate 146 on Phenylephrine and vasopressin. Labs WBC 37.4, BUN 2 , creatinine 1.7, magnesium 0.90, TSH 16.6. Lactic acid improved from 7.7- 5. Urinalysis positive for leukocyte esterase. Chest x-ray revealed prominent bilateral interstitial markings. 06/24/2024 Patient is seen at the bedside. She is currently sedated on fentanyl and midazolam. Vitals blood pressure 131/72 on vasopressin. Currently intubated with VT 450, peep 5 and respiratory rate 14. Labs WBC improved from 31.5-26.7, hemoglobin 11.2, BUN 25 , creatinine 2 , lactic acid 10.3. Urine culture resulted in E coli. 06/25/2024 Patient is seen at the bedside. She remains intubated and sedated on fentanyl and midazolam. Vitals blood pressure in 110s/60s. Labs WBC improved from 26.7-11.2, hemoglobin 10.3, BUN 26, creatinine improved from 2-1.5, lactic acid improved from 4.5-3.5. Urine culture, respiratory culture and abdominal site culture resulted in E coli organism. 06/26/24 patient remains sedated and intubated. She has gone down to OR for extensive abdominal surgery 06/27/24 Patient is mechanical ventilated and remains sedated. Patient is off pressors at this time. Patient is status post exploratory laparotomy on 06/22/2024 and right transverse colon resection with anastomosis and wound VAC placement as well as right colostomy and left urostomy day # 1. Patient is afebrile this morning, temperature is 98.2 and the WBC is 6.1. Patient has received 2 units of PRBC throughout the night and this morning for hemoglobin of 6.4 and will receive 1 unit of platelets for platelet level of 34. The linezolid was discontinued yesterday. Patient continues on ceftazidime, metronidazole and fluconazole 06/28/24 patient was seen and examined she remains on mechanical ventilation and sedated. Patient was requiring multiple transfusion products including both platelets and PRBCs. DIC? Who we will consult Hematology 06/29/2024 Patient is seen at the bedside. She remains sedated on fentanyl and midazolam and intubated, NG tube in place. Her blood pressure is ranging in between 130/70s to 140/70s. She is currently not on any vasopressors. Labs hemoglobin 11.1, platelets 134 post 2 unit PRBC and 4 platelet transfusions yesterday. Sodium 130, chloride 96, BUN 45, creatinine 1.3, BNP of 1430. Urinary output is 550m L. She is currently on Lasix drip at the rate of 5 mL/hour. Plan for wound closure by surgery consult tomorrow. 06/30/2024 Patient is seen at the bedside. She remains sedated on Versed and fentanyl. Intubated with VT 450, RR 18, FiO2 30%. Blood pressure ranging in 150s/70s, not on any vasopressors. Urine output of 1.2 L, on Lasix drip. WBC increased from 9.7-12.8, hemoglobin 10.3, platelet 85, BUN 57, creatinine improved from 1.3-1.2, phosphatase 248, albumin 1.4. Patient had undergone wound closure by surgery consult today. Chest x-ray revealed stable pulmonary pattern with no worrisome interval changes. 07/01 patient is seen and examined at bedside, remains in the ICU, patient with a acute bowel perforation with subsequent peritonitis, status post exploratory laparotomy 06/23/2024 by General surgery with a culture positive for E coli. Patient is status post repeat exploratory laparotomy 06/26/2024 with small bowel anastomosis, right colon and transfer colon resection, colostomy creation, ileostomy tube placement and wound VAC placement. Patient is status post wound closure and 2nd ZAIDA to abdomen on 06/30/2024. During my visit patient is off sedation, minimal withdrawal to painful stimulation, eyes open, remains intubated, on mechanical ventilation. Remains on Lasix drip. Getting broad- spectrum IV antibiotics. On low-dose Precedex. 07/02 patient is seen and examined at bedside, daughter at bedside, upd ated. During my visit patient remains intubated, case discussed with the RN, patient has been off sedation since earlier this morning in order to assess mental status. She remains on broad-spectrum IV antibiotics. She remains on Lasix drip. 07/03 07/02 patient is seen and examined at bedside, case discussed with the RN, patient remains intubated, mechanical ventilation, require fentanyl last night. Currently she is off vasopressors. Case discussed with critical Care, no family members at bedside, awaiting family decision in regards of tracheostomy versus comfort measures. We will continue to follow. 07/04 patient is seen and examined at bedside, remains intubated, mechanical ventilation, case discussed with the RN, patient about to receive additional un it of PRBC, the patient with the NG tube with coffee-ground content been aspirated. The patient colostomy examined, bloody output also noted. The patient looks pale. Awaiting family decision regards of tracheostomy versus comfort measures. The prognosis of this patient is extremely poor and guarded. Junior Art Director(s): Critical Care, General surgery. Procedure(s): Acute bowel perforation with subsequent peritonitis s/p exploratory laparotomy 06/23/24 Dr. Bianca PRAKASH Culture + E-coli. Repeat exploratory laparotomy on 06/26/2024 with small bowel anastomosis, right colon and transverse colon rese ction, colostomy creation, ileostomy tube placement and wound VAC placement. S/P wound closure and 2 ZAIDA to abdomen on 06/30/24 Assessment/Plan: Final diagnosis Acute hypoxic Respiratory failure POA Acute encephalopathy, in the setting of severe sepsis POA Acute bowel perforation with subsequent peritonitis s/p exploratory laparotomy 06/23/24 Dr. Valenzuela POA Culture + E-coli. Repeat exploratory laparotomy on 06/26/2024 with small bowel anastomosis, right colon and transverse colon resection, colostomy creation, ileostomy tube placement and wound VAC placement. S/P wound closure and 2 ZAIDA to abdomen on 06/30/24 Shock etiology sepsis POA Suspected intraabdominal hemorrhage Urinary tract infection, POA E-coli multisensitive Pneumonitis, culture + for E-coli Acute kidney injury, POA Lactic acidosis, POA Acute blood loss anemia Thrombocytopenia Chronic debility, POA DM type 2, POA GERD, POA History small-bowel obstruction History of fibromyalgia History of hypertension, now hypotensive in the setting of septic shock versus hemorrhagic shock Home Medications: Active Scripts Honey (Medihoney) 100 % Paste..ml., 1 APPL TP DAILY for 30 Days, #30 - Prov:SERGE FORD MD 06/18/24 Balsam Payam/[place] Oil (Venelex Ointment) 60 Gm Oint...g., 60 GM TP TID for 30 Days, #30 - 1 Refill Prov:SERGE FORD MD 06/18/24 Fentanyl (Fentanyl) 75 Mcg/Hour Patch.td72, 1 PATCH TP Q3D for 3 Days, #3 PATCH 0 Refills Prov:MARTIN GALINDO MD 05/07/24 Lorazepam (Ativan) 2 Mg Tablet, 1 TAB PO HSPRN PRN for sleep for 30 Days, #30 TAB 0 Refills Prov:MARTIN GALINDO MD 05/07/24 Hydromorphone HCl (Hydromorphone HCl) 2 Mg Tablet, 1 TAB PO TID for pain for 30 Days, #90 TAB 0 Refills Prov:MARTIN GALINDO MD 05/07/24 Diphenoxylate HCl/Atropine (Lomotil Tablet) 2.5 Mg-0.025 Mg Tablet, 1 TAB PO QID for 30 Days, #30 TAB 2 Refills Prov:MARTIN GALINDO MD 05/07/24 Reported Medications Amlodipine Besylate (Amlodipine Besylate) 5 Mg Tablet, 1 TAB PO DAILY for 30 Days, #30 TAB 0 Refills 05/07/24 Nitroglycerin (Nitroglycerin) 0.4 Mg Tab.subl, 1 TAB SL AD for chest pain, #25 TAB 0 Refills 1st sign of attack; may repeat every 5 mins; if pain persists after 3 in 15 min, medical attention is recommended 04/06/24 Tizanidine HCl (Tizanidine HCl) 2 Mg Capsule, 3 CAP PO BID for 30 Days, #60 CAP 0 Refills 04/06/24 Simethicone (Simethicone) 80 Mg Tab.chew, 1 TAB PO TID for gas for 6 Days, #20 TAB 0 Refills 04/06/24 Ondansetron HCl (Ondansetron HCl) 4 Mg Tablet, 1 TAB PO Q6HPRN PRN for nausea/vomiting, #10 TAB 0 Refills 04/06/24 Lactulose (Lactulose) 20 Gram/30 Ml Solution, 30 ML PO Q6HPRN PRN for CONSTIPATION for 30 Days, #900 ML 0 Refills 04/06/24 Hydroxyzine HCl (Hydroxyzine HCl) 25 Mg Tablet, 1 TAB PO TID for anxiety for 30 Days, #90 TAB 0 Refills 04/06/24 Hydromorphone HCl (Hydromorphone HCl) 8 Mg Tablet, 1 TAB PO Q6HPRN PRN for pain for 30 Days, #120 TAB 0 Refills 04/06/24 Docusate Sodium (Docusate Sodium) 100 Mg Capsule, 1 CAP PO DAILY for constipation for 30 Days, #30 CAP 0 Refills 04/06/24 Clonidine HCl (Clonidine HCl) 0.1 Mg Tablet, 1 TAB PO TIDP PRN for IF SBP GREATER THAN 160 for 30 Days, #30 TAB 0 Refills 04/06/24 Albuterol Sulfate (Albuterol Sulfate) 2.5 Mg/0.5 Ml Vial.neb, 1 VIAL NEB Q4H for shortness of breath for 10 Days, #30 ML 0 Refills 04/06/24 Acetaminophen (Acetaminophen) 325 Mg Tablet, 2 TAB PO Q4HPRN PRN for pain or fever for 30 Days, #30 TAB 0 Refills 04/06/24 Melatonin (Melatonin) 3 Mg Tablet, 2 TAB PO HS for sleep for 30 Days, #30 TAB 0 Refills 04/06/24 Trazodone HCl (Trazodone HCl) 150 Mg Tablet, 1 TAB PO HS for 30 Days, #30 TAB 0 Refills 04/06/24 Ascorbic Acid (Vitamin C) 500 Mg Tablet, 1 TAB PO DAILY for 30 Days, #30 TAB 0 Refills 04/06/24 Pantoprazole Sodium (Pantoprazole Sodium) 40 Mg Tablet.dr, 1 TAB PO BID for 30 Days, #30 TAB 0 Refills 04/06/24 Multivitamin W/Iron, Minerals (Multivitamins with Iron) 1 Each Tab.chew, 1 TAB PO DAILY for 30 Days, #30 TAB 0 Refills 04/06/24 Buspirone HCl (Buspirone HCl) 7.5 Mg Tablet, 1 TAB PO BID for 30 Days, #60 TAB 0 Refills 04/06/24 Sucralfate (Sucralfate) 1 Gram/10 Ml Oral.susp, 10 ML PO BID for 30 Days, #600 ML 0 Refills 04/06/24 Thyroid,Pork ([place] Thyroid) 180 Mg Tablet, 1 TAB PO DAILY for 30 Days, #30 TAB 0 Refills 04/06/24 Gabapentin (Gabapentin) 600 Mg Tablet, 600 MG PO TID, TAB 07/11/23 Metoprolol Tartrate (Metoprolol Tartrate) 100 Mg Tablet, 100 MG PO BID, TAB 07/11/23 [Thyroid] No Conflict Check, 3 GR PO ACBKFST 07/11/23 Valsartan/Hydrochlorothiazide (Valsartan-Hctz 320-25 mg Tab) 320 Mg-25 Mg Tablet, 1 TAB PO DAILY, TAB 07/11/23 Fentanyl (Fentanyl) 100 Mcg/Hour Patch.td72, 1 EACH TD Q72 HRS 07/11/23 Time spent arranging discharge: 31-60 minutes MARTIN GALINDO MD Jul 05, 2024 12:05
--- NOTE | 2024-07-05 20:56 | PN ---
INFECTIOUS DISEASE FOLLOWUP NOTE DATE OF SERVICE: 07/04/2024 SUBJECTIVE: The patient is seen and examined at bedside today. The patient has no fever or chills. . The patient continued to have bloody drainage 3 days. PHYSICAL EXAMINATION: VITAL SIGNS: Temperature 99.5. EYES: No icterus. Pupils equal and reactive. HENT: No oral thrush seen. Moist oral mucosa. NECK: Supple, no JVD or thyromegaly. LUNGS: Crackles bilaterally, no rhonchi. CARDIOVASCULAR: S1, S2, regular. No murmur heard. ABDOMEN: Obese, soft. Bowel sound absent. Midline surgical incision sealed with a wound vaccum. Ileostomy on the right side draining bloody fluid. CENTRAL NERVOUS SYSTEM: The patient is encephalopathic, nonverbal. SKIN: No rashes, no itchiness. LYMPHATIC: No peripheral lymphadenopathy. BACK: No deformity. EXTREMITIES: Generalized anasarca. GENITOURINARY: Hearn catheter in place. No hematuria. LABORATORY DATA: WBC 10.2, hemoglobin 5.4, platelets 60,000. ASSESSMENT: A 73-year-old female with multiple problems include: * Septic shock. * Intestinal perforation, status post exploratory laparotomy. * Anemia. * Peritonitis. * Thrombocytopenia. * Gastrointestinal bleed. * Respiratory failure. * Sacrococcygeal ulcer. * Bedbound debility. PLAN: * Continue critical care support. * Monitor hemoglobin and hematocrit. * Continue ventilatory support. * Continue fluconazole * Continue ceftazidime * Continue pain management. TID: [id number] RECE[facility]: [id number] [facility]
== END 2024-07-04 18:11 | DRG 853 ==
LOC: EDH 17:04 → EDHIP 19:57 → 2CH 23:56
PROVIDERS: ADMIT Internal Medicine; ATTEND Internal Medicine
PROC: 0BH17EZ Insertion of Endotracheal Airway into Trachea, Via Natural or Artificial Opening (ICD-10-PCS; 2024-06-22)
PROC: 02HV33Z Insertion of Infusion Device into Superior Vena Cava, Percutaneous Approach (ICD-10-PCS; 2024-06-22)
PROC: 0DB60ZZ Excision of Stomach, Open Approach (ICD-10-PCS; principal; 2024-06-23)
PROC: 0DBU0ZZ Excision of Omentum, Open Approach (ICD-10-PCS; 2024-06-23)
PROC: 0DN80ZZ Release Small Intestine, Open Approach (ICD-10-PCS; 2024-06-23)
PROC: 0DT80ZZ Resection of Small Intestine, Open Approach (ICD-10-PCS; 2024-06-23)
PROC: 5A1955Z Respiratory Ventilation, Greater than 96 Consecutive Hours (ICD-10-PCS; 2024-06-23)
PROC: 30233N1 Transfusion of Nonautologous Red Blood Cells into Peripheral Vein, Percutaneous Approach (ICD-10-PCS; 2024-06-23)
PROC: 30233R1 Transfusion of Nonautologous Platelets into Peripheral Vein, Percutaneous Approach (ICD-10-PCS; 2024-06-27)
PROC: 0WQF0ZZ Repair Abdominal Wall, Open Approach (ICD-10-PCS; 2024-06-30)
PROC: 0D1B0Z4 Bypass Ileum to Cutaneous, Open Approach (ICD-10-PCS; 2024-07-02)
PROC: 0DTF0ZZ Resection of Right Large Intestine, Open Approach (ICD-10-PCS; 2024-07-02)
PROC: 0DH60UZ Insertion of Feeding Device into Stomach, Open Approach (ICD-10-PCS; 2024-07-02)
DX: A41.9 Sepsis, unspecified organism (principal); G93.41 Metabolic encephalopathy; J96.01 Acute respiratory failure with hypoxia; K63.1 Perforation of intestine (nontraumatic); R65.21 Severe sepsis with septic shock; K65.0 Generalized (acute) peritonitis; K25.6 Chronic or unspecified gastric ulcer with both hemorrhage and perforation; K65.1 Peritoneal abscess; N39.0 Urinary tract infection, site not specified; N17.9 Acute kidney failure, unspecified; D62 Acute posthemorrhagic anemia; K56.52 Intestinal adhesions [bands] with complete obstruction; Z20.822 Contact with and (suspected) exposure to COVID-19; M79.7 Fibromyalgia; E78.00 Pure hypercholesterolemia, unspecified; K21.9 Gastro-esophageal reflux disease without esophagitis; F41.9 Anxiety disorder, unspecified; R13.10 Dysphagia, unspecified; N18.9 Chronic kidney disease, unspecified; E11.22 Type 2 diabetes mellitus with diabetic chronic kidney disease; I12.9 Hypertensive chronic kidney disease with stage 1 through stage 4 chronic kidney disease, or unspecified chronic kidney disease; E11.65 Type 2 diabetes mellitus with hyperglycemia; B96.20 Unspecified Escherichia coli [E. coli] as the cause of diseases classified elsewhere; D69.6 Thrombocytopenia, unspecified; E03.9 Hypothyroidism, unspecified; E66.01 Morbid (severe) obesity due to excess calories; G89.29 Other chronic pain; K43.2 Incisional hernia without obstruction or gangrene; L98.429 Non-pressure chronic ulcer of back with unspecified severity; Z74.01 Bed confinement status; Z96.643 Presence of artificial hip joint, bilateral; Z88.1 Allergy status to other antibiotic agents; Z83.3 Family history of diabetes mellitus; Z80.49 Family history of malignant neoplasm of other genital organs; Z82.49 Family history of ischemic heart disease and other diseases of the circulatory system; Z85.41 Personal history of malignant neoplasm of cervix uteri; Z90.710 Acquired absence of both cervix and uterus; Z88.0 Allergy status to penicillin; Z79.899 Other long term (current) drug therapy
CPT/HCPCS: 36415; 36430; 36600; 71045; 74176; 80048; 80053; 81001; 82435; 82550; 82803; 82947; 82948; 83036; 83540; 83550; 83605; 83735; 83880; 84100; 84132; 84145; 84295; 84443; 84484; 85014; 85018; 85025; 85027; 85049; 85384; 85610; 85730; 85732; 86022; 86850; 86870; 86880; 86900; 86901; 86905; 86922; 86927; 87040; 87070; 87071; 87076; 87086; 87186; 87205; 87635; 87804; 88305; 88307; 88312; 93005; 94002; 94003; 94640; 96365; 96366; 96368; 99291; A4450; G0378; J0330; J0360; J0612; J0690; J0692; J0696; J0713; J1100; J1171; J1450; J1650; J1720; J1815; J1940; J2003; J2020; J2060; J2250; J2270; J2371; J2405; J2470; J2597; J2704; J2710; J3010; J3475; J3480; J3490; J7030; J7050; J7070; J7120; P9016; P9017; P9034; P9045; P9046; P9047; A4649; A4930; A6210; A6550; A9272; A9900; B4088; C1781